=== PATIENT | male | born 1970 | race Caucasian/White ===

== ENCOUNTER → 2017-07-14 12:20 | Outpatient (CLI) | payer MEDICARE, MEDICAID, SELFPAY ==
[2017-07-14 14:24] LABS: Amphetamine Urine VISTA NEGATIVE (<1000 ng/mL); Barbiturate Urine VISTA NEGATIVE (< 200 ng/mL); Benzodiazepine Urine VISTA NEGATIVE (< 200 ng/mL); Cocaine Urine VISTA NEGATIVE (< 300 ng/mL); Ecstacy Urine VISTA NEGATIVE (< 500 ng/mL); Methadone Urine VISTA NEGATIVE (< 300 ng/mL); PCP Urine VISTA NEGATIVE (< 25 ng/mL); THC Urine VISTA NEGATIVE (< 50 ng/mL); Vista UDS pH Range 6
== END ==
PROVIDERS: Family Provider Internal Medicine; PCP Internal Medicine; Visit Provider Anesthesiology Pain Medicine
DX: F11.20 Opioid dependence, uncomplicated (principal)
CPT/HCPCS: 80307

== ENCOUNTER → 2017-12-01 15:05 | Outpatient (CLI) | payer MEDICARE, MEDICAID, SELFPAY ==
[2017-12-01 17:10] LABS: Amphetamine Urine VISTA NEGATIVE (<1000 ng/mL); Barbiturate Urine VISTA NEGATIVE (< 200 ng/mL); Benzodiazepine Urine VISTA NEGATIVE (< 200 ng/mL); Cocaine Urine VISTA NEGATIVE (< 300 ng/mL); Ecstacy Urine VISTA NEGATIVE (< 500 ng/mL); Methadone Urine VISTA NEGATIVE (< 300 ng/mL); PCP Urine VISTA NEGATIVE (< 25 ng/mL); THC Urine VISTA NEGATIVE (< 50 ng/mL); Vista UDS pH Range 5
== END ==
PROVIDERS: Family Provider Internal Medicine; PCP Internal Medicine; Visit Provider Anesthesiology Pain Medicine
DX: F11.20 Opioid dependence, uncomplicated (principal)
CPT/HCPCS: 80307

== ENCOUNTER 2018-02-22 22:07 | Emergency (ER) | payer MEDICARE, MEDICAID, SELFPAY ==
[2018-02-22 22:08] VITALS: BP 217/103; PULSE 74; RESP 17; TEMP 36.6; O2SAT 94; BMI 27.5
[2018-02-22] MEDS: morphine 10 MG/ML Syringe IM (22:39)
[2018-02-22] MEDS: cloNIDine HCl 0.1 MG Tablet PO (23:04)
[2018-02-22 23:05] VITALS: BP 184/110
--- NOTE | 2018-02-22 23:22 | ED.DCSUM_ITS ---
- ER Visit Summary Date of Service: 02/22/18 Chief Complaint: Back pain History of Present Illness: The patient is a 47 M with a history of prior back pain. 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 Patient was bending over picking up sticks in his yard today and started to feel his lower back tightening up. He has pain in the right lower back with some radiation to the mid thigh on the right. He denies paresthesias. No problems bowel bladder. No direct trauma to his back. Patient has taken Tylenol, ibuprofen, and Lyrica. Past history is significant for Marfan's syndrome with a prior aortic dissection. He also is a history of hypertension and high cholesterol. Physical Examination: Blood pressure on arrival is 217/103, temperature 97.8, heart rate 74, respiratory rate 17, pulse ox 94% on room air. Patient is lying in bed no acute distress. Heart is regular rate and rhythm. Lung sounds clear. Abdomen is soft and nontender. Back examination was reproducible tenderness in the right lumbar paraspinal muscles. Lower extreme examination was good strength and sensation with strong and equal distal pulses. Test Results: Emergency Department Course and Treatment: Patient was given IM morphine. On repeat evaluation blood pressure remains elevated at 212/117. He did take his evening blood pressure medications approximately an hour and a half prior to arrival. He has as needed clonidine that he did not take tonight. He is given a dose of that at this time. Blood pressure is currently 184/110. Patient will be observed for an additional short period of time, with plan for discharge to home. He will be given a short course of Percocet for home. Treatment Plan: Disposition: Discharge Impression: Right lumbar paraspinal strain Hypertension This note was generated with [employer] dictation software. It may contain incorrect words, spelling, and punctuation that were not noted in review of the chart prior to signing ED Disposition - Plan for ED Patient: Chief Complaint: Back Referrals: Raymond Turcios [Primary Care Provider] -
--- NOTE | 2018-02-22 23:24 | ED.DEP ---
ED Disposition - Plan for ED Patient: Disposition: Home or Assisted Living Chief Complaint: Back Instructions: ED Sprain Strain Lumbar Prescriptions: Oxycodone HCl/Acetaminophen [Percocet 5/325] 1 tablet PO Q6H PRN PRN 3 Days #12 tablet PRN Reason: Pain Referrals: Raymond Turcios [Primary Care Provider] - 1 Week
[2018-02-22] MEDS: oxyCODONE 5 MG Tablet PO (23:41)
[2018-02-22 23:43] VITALS: BP 198/86; RESP 18
[2018-02-22] MEDS: diazePAM 5 MG Tablet PO (23:51)
== END 2018-02-22 23:59 | disposition home or self-care (01) ==
PROVIDERS: Emergency Provider Emergency Medicine; Family Provider Internal Medicine; PCP Internal Medicine
DX: S39.012A Strain of muscle, fascia and tendon of lower back, initial encounter (principal); X50.1XXA Overexertion from prolonged static or awkward postures, initial encounter; Y93.H2 Activity, gardening and landscaping; Y92.007 Garden or yard of unspecified non-institutional (private) residence as the place of occurrence of the external cause; Y99.9 Unspecified external cause status; I10 Essential (primary) hypertension; E78.00 Pure hypercholesterolemia, unspecified; Q87.40 Marfan syndrome, unspecified; Z79.82 Long term (current) use of aspirin; Z79.899 Other long term (current) drug therapy
CPT/HCPCS: 96372; 99283

== ENCOUNTER 2018-04-08 00:45 | Emergency (ER) | payer MEDICARE, MEDICAID, SELFPAY ==
[2018-04-08 00:46] VITALS: BP 180/97; PULSE 80; RESP 24; TEMP 36.7; O2SAT 95; BMI 29.6
--- NOTE | 2018-04-08 01:11 | CT_ITS ---
STUDY: CT ABDOMEN AND PELVIS WITHOUT CONTRAST REASON FOR EXAM: Male, 47 years old. Flank pain RADIATION DOSAGE (If Supplied By Facility): CTDIvol = ( 15.62 ) mGy, DLP = ( 932.70 ) mGycm TECHNIQUE: Transaxial images were obtained from the dome of the diaphragm to the symphysis pubis without oral contrast, and without intravenous contrast. Sagittal and coronal images were reconstructed. Individualized dose optimization techniques were used for this CT. COMPARISON: 01/20/2017 FINDINGS: The visualized lung bases are unremarkable. The visualized portions of the heart are within normal limits. Normal liver. Normal gallbladder and extrahepatic biliary system. Normal spleen. Normal pancreas. Normal bilateral adrenal glands. There is a 1 cm cortical cyst of the upper pole the RIGHT kidney. There is a 3 cm parapelvic cyst in the lower pole of the LEFT kidney. There are NO kidney stones or ureteral stones. There is NO hydronephrosis. Normal visualized stomach. Normal small intestine. Normal colon. The appendix is visualized and appears normal. Normal abdominal aorta. Normal inferior vena cava. Normal retroperitoneum. Normal urinary bladder. There is NO ascites, free air, abscess or adenopathy. Normal abdominal wall. Normal osseous structures. CT/Abdomen/Pelvis without Cont IMPRESSION: There is a 1 cm cortical cyst of the upper pole the RIGHT kidney. There is a 3 cm parapelvic cyst in the lower pole of the LEFT kidney. There are NO kidney stones or ureteral stones. There is NO hydronephrosis. Normal visualized stomach. Normal small intestine. Normal colon. The appendix is visualized and appears normal. There is NO ascites, free air, abscess or adenopathy. Electronically Signed: Jean Alvarenga MD at 2:22 EST , Service support ,
[2018-04-08 01:18] LABS: Absolute Lymphocyte Count 1.33 X10^3/ul (0.83-4.51); Absolute Neutrophil Count 3.9 X10^3/uL (2.0-7.7); Basophil# 0.02 X10^3/uL; Basophil% 0.3 % (0-1); Eosinophil# 0.07 X10^3/uL; Eosinophils% 1.1 % (0-5); Hematocrit 41.3 % (40-54); Hemoglobin 14.4 g/dl (13.0-16.5); Lymphocyte # 1.33 X10^3/ul (4.0); Lymphocyte % 20.9 % (19-41); Mean Corp Hgb Conc 34.9 g/gl (32-36); Mean Corpuscular Hgb 29.8 pg (27.0-32.0); Mean Corpuscular Volume 85.5 fL (80-94); Mean Platelet Vol. 9.4 fl (6.2-12.0); Monocyte% 15.7 % (0-10); Neutrophil % 61.4 % (47-70); Platelet Count 260 K/mm3 (150-450); RBC Distribution Width CV 12.9 % (11.6-14.6); RBC Distribution Width SD 39.6 fl (35.1-43.9); Red Blood Count 4.83 M/mm3 (4.6-6.2); White Blood Count 6.4 K/mm3 (4.4-11.0)
[2018-04-08 01:19] LABS: POSITIVE COUNT NO; POSITIVE DIFFERENTIAL NO; POSITIVE MORPHOLOGY NO
[2018-04-08 01:26] LABS: Anion Gap 6 (5-15); BUN 18 mg/dL (7-18); Calcium,Total 8.5 mg/dL (8.5-10.1); Chloride 99 mmol/L (98-107); Creatinine, Serum 0.95 mg/dL (0.70-1.30); EST Glomerular Filtration Rate 90 mL/min (>60); Est Glom Filt Rate - Afr Amer 109 mL/min (>60); Estimated Creatinine Clearance 115.48 ml/min; Glucose 99 mg/dL (74-106); Potassium 3.6 mmol/L (3.5-5.1); Sodium Level 135 mmol/L (136-145)
[2018-04-08] MEDS: HYDROmorphone 1 MG/ML Syringe IV ×2 (01:40→02:55)
[2018-04-08] MEDS: Ondansetron 4 MG/2 ML Vial IV (01:40)
[2018-04-08] MEDS: 0.9% Normal Saline 1,000 ML 1000 ML IV (01:40)
[2018-04-08 02:03] LABS: Bacteria 0 SEEN /hpf (None Seen); Mucous, Urine 0 SEEN /hpf (<or=2+); Red Blood Cells-Urine 0 SEEN /hpf (0-5); Squamous Epithelial Cells - UA 0 SEEN /hpf (0-5); White Blood Cells 0 SEEN /hpf (0-5)
[2018-04-08 02:07] LABS: Color, Urine Yellow (Yellow); Glucose, Dipstick Normal (Normal); Ketone-Dipstick Negative (Negative); Leukocyte Esterase-Dipstick Negative /ul (Negative); Nitrite-Dipstick Negative (Negative); Occult Blood-Urine Negative /ul (Negative); Protein-Dipstick Negative (Negative); Specific Gravity, Urine 1.015 (1.002-1.030); Urine Bilirubin Dipstick Negative (Negative); Urine Clarity Clear (Clear); Urine Urobilinogen Normal (Normal); Urine pH 6.5 (5.0 - 8.0)
--- NOTE | 2018-04-08 02:33 | CT_ITS ---
STUDY: CTA OF THE ABDOMINAL AORTA AND BILATERAL LOWER EXTREMITIES REASON FOR EXAM: Male, 47 years old. Back pain RADIATION DOSAGE (If Supplied By Facility): CTDIvol = ( 18.26 ) mGy, DLP = ( 1115.64 ) mGycm TECHNIQUE: Axial CT angiography multi-detector data acquisition was obtained from the to the following intravenous administration of 100ML ml of Isovue 370 contrast. Axial images and MIP images were reconstructed from the axial data set. Post-processing of the angiographic images was performed, with multiplanar reformation and 3D reconstruction. Individualized dose optimization techniques were used for this CT. TECHNICAL QUALITY: Good COMPARISON: None. Descriptors of Narrowing: None (0%) Mild (< 50%) Moderate (50-70%) Severe (70-90%) Subtotal/Total Occlusion (90-100%) Non-Evaluable (technically non-diagnostic FINDINGS: The abdominal aorta is normal in caliber. There is NO significant plaque. There is NO aneurysm, dissection, stenosis or thrombosis. Mesenteric arterial branches are patent and normal in caliber. The iliac branches are patent and normal in caliber. There is fatty infiltration of the liver. The gallbladder, pancreas, spleen, adrenal glands and kidneys are unremarkable. There is NO acute bowel abnormality. There is NO ascites or free air. Visualized bony structures are within normal limits. CT/CTA Abdomen W/WO Contrast IMPRESSION: There is NO aortic aneurysm, dissection, stenosis or thrombosis. Electronically Signed: Jean Alvarenga MD at 4:05 EST , Service support ,
--- NOTE | 2018-04-08 02:33 | CT_ITS ---
STUDY: CTA CHEST REASON FOR EXAM: Male, 47 years old. Chest pain RADIATION DOSAGE (If Supplied By Facility): CTDIvol = ( 18.26 ) mGy, DLP = ( 1115.64 ) mGycm TECHNIQUE: The examination was performed with the intravenous administration of 100ML ml of Isovue 370 contrast material. Post-processing of the angiographic images was performed, with multiplanar reformation and 3D reconstruction. Individualized dose optimization techniques were used for this CT. COMPARISON: None. 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 There is a stent in the proximal descending thoracic aorta. There is NO aortic dissection or thrombosis. There is NO pulmonary embolism. Normal heart and pericardium. Normal mediastinum. Normal hilar regions. Normal visualized trachea and bronchi. The lungs are well expanded. Normal pulmonary parenchyma. Normal pleura. Normal chest wall structures. Normal osseous structures. Normal visualized upper abdomen. 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 There is a stent in the proximal descending thoracic aorta. There is NO aortic dissection or thrombosis. There is NO pulmonary embolism. The lungs are expanded and clear. Electronically Signed: Jean Alvarenga MD at 3:57 EST , Service support ,
[2018-04-08 03:00] VITALS: BP 170/81; PULSE 76; O2SAT 95
[2018-04-08 03:32] VITALS: BP 161/99; PULSE 74; RESP 13; O2SAT 95
--- NOTE | 2018-04-08 04:21 | ED.VISSUMM ---
- ER Visit Summary Date of Service: 04/08/18 Chief Complaint: Kidney stone History of Present Illness: The patient is a 47 M who presents with left flank pain. This has been getting worse of the past 3 days. The pain is severe at times. He has noted an increased blood pressure which is concerning for him. He has a history of Marfan syndrome and had a prior dissection repair. He is denying any chest pain or shortness of breath. He does report some urinary frequency and sweats. Physical Examination: Blood pressure 180/97. Otherwise vitals unremarkable. Afebrile. Skin normal in color without diaphoresis or pallor. He is sitting recumbent and appears comfortable. No acute distress. Alert and oriented. Heart regular. Lungs clear. Abdomen soft and nontender. Left CVA tender to palpation. Skin appears normal. Legs unremarkable. Test Results: CBC normal. BMP unremarkable. Urinalysis unremarkable. CT abdomen pelvis showed bilateral renal cysts but no stones or hydronephrosis. Emergency Department Course and Treatment: Patient was initially treated with fluids, Dilaudid, and Zofran. His blood pressure did improve slightly with pain control. I continue to observe while awaiting results. He did require additional Dilaudid. Workup showed renal cysts but nothing that showed an obstruction pattern. No stones. His urinalysis was unremarkable making a kidney infection or kidney stones unlikely. CBC and BMP were unremarkable. He had continued pain and hypertension. He received an additional dose of Dilaudid. I did order CT of his aorta. CT aorta was unremarkable. Patient's blood pressure did improve to the 160s. He said he normally runs in the 150s. Patient declined blood pressure medication. He would like to take his blood pressure medication at home and he will watch his pressure at home. Patient declined admission and would like to go home. I reviewed his labs, imaging. There is nothing to explain his left flank pain at this time. He will return for any new or worsening issues. Monitor blood pressure. Take medications as prescribed. He was given a short course of pain medicine. Return for any new or worsening issues. Treatment Plan: As above Disposition: Discharge Impression: 1. Left flank pain 2. Hypertension This note was generated with [employer] software. It may contain incorrect words, spelling, and punctuation that were not noted in review of the chart prior to signing ED Disposition - Plan for ED Patient: Chief Complaint: Flank Pain Referrals: Raymond Turcios [Primary Care Provider] -
[2018-04-08 04:24] VITALS: BP 176/99; PULSE 85; RESP 16; O2SAT 94
--- NOTE | 2018-04-08 04:24 | ED.DEP ---
ED Disposition - Plan for ED Patient: Chief Complaint: Flank Pain Instructions: ED Flank Pain Uncertain Cause Referrals: Raymond Turcios [Primary Care Provider] -
[2018-04-08] MEDS: HYDROcodone Bitartrate/Apap 5/325 Tablet PO (04:32)
== END 2018-04-08 04:38 | disposition home or self-care (01) ==
LOC: ED 01:22
PROVIDERS: Emergency Provider Emergency Medicine; Family Provider Internal Medicine; PCP Internal Medicine
DX: R10.9 Unspecified abdominal pain (principal); I10 Essential (primary) hypertension; R35.0 Frequency of micturition; N28.1 Cyst of kidney, acquired; Q87.40 Marfan syndrome, unspecified; R51 Headache; Z79.82 Long term (current) use of aspirin; Z79.899 Other long term (current) drug therapy
CPT/HCPCS: 71275; 74175; 74176; 80048; 81001; 85025; 96361; 96374; 96375; 96376; 99283; J7030; Q9967; A4216; J2405

== ENCOUNTER 2018-05-19 16:57 | Emergency (ER) | payer MEDICARE, MEDICAID, SELFPAY ==
[2018-05-19] VITALS (15 sets, daily range): BP systolic 156–207; BP diastolic 97–121; PULSE 14–89; RESP 14–71; TEMP 36.4; O2SAT 94–97; BMI 28.0
--- NOTE | 2018-05-19 17:29 | CT_ITS ---
STUDY: CT BRAIN WITHOUT CONTRAST REASON FOR EXAM: Male, 47 years old. Weakness, hypertension, left hemiparesis RADIATION DOSAGE (If Supplied By Facility): CTDIvol = ( 44.99 ) mGy, DLP = ( 863.60 ) mGycm TECHNIQUE: Transaxial CT imaging of the brain was performed without administration of intravenous contrast material. Individualized dose optimization techniques were used for this CT. COMPARISON: None. FINDINGS: Normal soft tissue structures. Normal calvarium. Normal size ventricles and extra-axial spaces for the patient's age. Normal white matter tracts of the cerebral hemispheres. Normal basal ganglia and thalami. Normal brainstem. Normal cerebellum. There is no intracranial hemorrhage. There are no findings of an acute ischemic infarction. Normal visualized paranasal sinuses. CT/Brain/Head without Contrast IMPRESSION: Normal unenhanced CT scan of the brain. Electronically Signed: Uche Morales DO at 18:25 EST Tel [phone], Service support ,
--- NOTE | 2018-05-19 17:29 | EKG12_ITS ---
Test Reason : HYPERTENSION Blood Pressure : / mmHG Vent. Rate : 078 BPM Atrial Rate : 078 BPM P-R Int : 202 ms QRS Dur : 126 ms QT Int : 430 ms P-R-T Axes : 020 -01 092 degrees QTc Int : 490 ms Normal sinus rhythm Possible Left atrial enlargement Left ventricular hypertrophy with QRS widening and repolarization abnormality Cannot rule out Inferior infarct , age undetermined Abnormal ECG Confirmed by MIRANDA HARRIS, MARIUSZ ([id number]), society editor SAMUEL SCHNEIDER ([id number]) on 05/24/2018 9:13:11 AM Referred By: PRUDENCE Confirmed By:MARIUSZ JEAN MD
--- NOTE | 2018-05-19 17:41 | RAD_ITS ---
STUDY: X-RAY CHEST REASON FOR EXAM: Male, 47 years old. Chest pain, hypertension TECHNIQUE: Single frontal view COMPARISON: April 16, 2017 FINDINGS: Stable sternotomy wires. The lungs are clear and expanded. There is no demonstrated pleural abnormality. Cardiomegaly Normal mediastinum and patrick. Normal visualized pulmonary arteries. There is a stent noted at the proximal thoracic aorta. Normal visualized thoracic spine. Normal visualized ribs, clavicles, and shoulders. There is no demonstrated abnormality of the visualized soft tissue structures of the upper abdomen. RAD/Chest 1 View IMPRESSION: Cardiomegaly. Electronically Signed: Uche Morales DO at 18:02 EST Tel [phone], Service support ,
[2018-05-19 17:53] LABS: Absolute Lymphocyte Count 1.49 X10^3/ul (0.83-4.51); Absolute Neutrophil Count 2.6 X10^3/uL (2.0-7.7); Basophil# 0.02 X10^3/uL; Basophil% 0.4 % (0-1); Eosinophil# 0.08 X10^3/uL; Eosinophils% 1.6 % (0-5); Hematocrit 41.7 % (40-54); Hemoglobin 14.5 g/dl (13.0-16.5); Lymphocyte # 1.49 X10^3/ul (4.0); Lymphocyte % 30.2 % (19-41); Mean Corp Hgb Conc 34.8 g/gl (32-36); Mean Corpuscular Hgb 29.5 pg (27.0-32.0); Mean Corpuscular Volume 84.8 fL (80-94); Mean Platelet Vol. 9.7 fl (6.2-12.0); Monocyte% 14.2 % (0-10); Neutrophil # 2.63 X10^3/uL (2.7-7.7); Neutrophil % 53.2 % (47-70); POSITIVE COUNT NO; POSITIVE DIFFERENTIAL NO; POSITIVE MORPHOLOGY NO; Platelet Count 287 K/mm3 (150-450); RBC Distribution Width CV 13.1 % (11.6-14.6); RBC Distribution Width SD 40.1 fl (35.1-43.9); Red Blood Count 4.92 M/mm3 (4.6-6.2); White Blood Count 4.9 K/mm3 (4.4-11.0)
[2018-05-19 18:00] LABS: Prothrombin Time (Protime)PT. 13.4 SECONDS (11.7-14.9)
[2018-05-19 18:01] LABS: Partial Thromboplast Time 28.6 Seconds (24.1-36.2)
[2018-05-19 18:05] LABS: Anion Gap 8 (5-15); BUN 12 mg/dL (7-18); Calcium,Total 8.9 mg/dL (8.5-10.1); Chloride 100 mmol/L (98-107); Creatinine, Serum 1.09 mg/dL (0.70-1.30); EST Glomerular Filtration Rate 76 mL/min (>60); Est Glom Filt Rate - Afr Amer 92 mL/min (>60); Estimated Creatinine Clearance 100.65 ml/min; Glucose 103 mg/dL (74-106); Potassium 2.8 mmol/L (3.5-5.1); Sodium Level 137 mmol/L (136-145)
[2018-05-19] MEDS: Aspirin 81 MG TAB.CHEW 162 MG PO (18:32)
--- NOTE | 2018-05-19 18:35 | ED.VIS.GEN ---
History of Present Illness Chief Complaint: Hypertension Informant: Patient, Family Onset: Today Context: Gradual Onset Quality: malaise Location: all over Current Severity: Severe Maximum Severity: Severe Worsened by: nothing Relieved by: nothing Associated Symptoms: mildly pleuritic left chest pain, headache all over, fatigue Narrative: States he has been feeling like this all day over 8-10 hours, states his blood pressure has been over 200 every time he has checked it. States that he felt a headache this morning so he took Sudafed because he has a history of sinus headaches, as he took a dose last night as well. Has a history of an aortic dissection and elephant trunk-repair, states that he was told on occasion if his blood pressure goes very high he may feel the stent in his chest, and he is wondering if that is the left-sided chest discomfort he is having. He states this feels nothing like the dissection that he had. He has never had a coronary stent, but he had a prophylactic bypass given the ascending aortic component of the dissection. Also states that for the last several hours, he does not recall exactly when, he has noticed weakness on his left lower extremity and left upper extremity. That is a new symptom as well. - Past Medical History (1) History of aortic dissection Status: Chronic Comment: Status post repair (2) Hypertension Status: Chronic (3) Marfans syndrome Status: Chronic Past Medical History - Allergies and Home Meds Allergies/Adverse Reactions: Allergies ciprofloxacin [From Cipro] Allergy (Verified 04/08/18 00:48) Rash ciprofloxacin HCl [From Cipro] Allergy (Verified 04/08/18 00:48) Rash sulfamethoxazole [From Bactrim] Allergy (Verified 04/08/18 00:48) Rash tramadol Allergy (Verified 04/08/18 00:48) Itching trimethoprim [From Bactrim] Allergy (Verified 04/08/18 00:48) Rash Primary Care Physician: Raymond Turcios [Primary Care Provider] - Surgical History: - - Aortic dissection repair, index finger amputation right hand, lacerated tendon repair right foot Lives: Spouse/ Significant Other Smoking Status: Current every day smoker - Family History Maternal Family History: Reports: Cancer Paternal Family History: Reports: Hypertension Review of Systems General: Reports: Malaise. Denies: Chills, Fever, Sweats Eyes: Reports: Blurred Vision - bilaterally. Denies: Diplopia ENT: Denies: Bilateral ear pain, Rhinorrhea, Sore throat Cardiovascular: Reports: Chest pain. Denies: Palpitations, Heart racing Respiratory: Denies: Dyspnea, Cough, Dyspnea on exertion Gastrointestinal: Denies: Abdominal pain, Nausea, Vomiting, Diarrhea, Melena, Hematochezia Genitourinary: Denies: Dysuria, Hematuria, Frequency Musculoskeletal: Denies: Neck pain, Back pain, Swelling, Extremity Pain Skin: Denies: Rash, Abscess, Wounds Neurological: Reports: Headache, Weakness - left arm and leg. Denies: Parasthesia, Numbness Allergy: Denies: Swelling of the mouth, Swelling of the tongue Physical Exam Vital Signs/Narrative: Vital Signs Temp Pulse Resp BP Pulse Ox 05/19/18 18:32 68 180/121 H 05/19/18 18:25 66 16 181/105 H 95 05/19/18 17:56 79 18 207/120 H 95 05/19/18 16:58 97.6 F L 89 16 162/104 H 97 Inital Vital Signs reviewed: Yes General: Well nourished, Well developed Head: Normocephalic, Atraumatic Eyes: Perrl, EOMI ENT: Moist mucous membranes, No rhinorrhea. Negative for: Sinus tenderness Neck: Supple, Nontender, No lymphadenopathy, No JVD Cardiovascular: Regular rate, Regular rhythm, No murmurs, Normal S1, Normal S2 Respiratory: No distress, CTA bilaterally, Chest nontender Abdomen: Soft, Nontender, Nondistended, Normal bowel sounds Back: Nontender, Normal Inspection Extremities: Nontender, No edema Skin: Normal color, No rash Neurological: Alert, Oriented x3, Cranial nerves II-XII grossly intact, Normal Sensation, Weakness - LLE drift. 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 no hemiinattention or hemineglect., - - nml cerebellar and vis casanova. No aphasia or dysarthria. Total NIHSS 1, for LLE. Psychological: Normal affect Diagnostic/Tx/Re-eval Impressions Clinical Impression(s) from Imaging Studies Brain CT 05/19/18 17:29 IMPRESSION: Normal unenhanced CT scan of the brain. Electronically Signed: Uche Morales DO at 18:25 EST Tel [phone], Service support , Chest X-Ray 05/19/18 17:41 IMPRESSION: Cardiomegaly. Electronically Signed: Uche Morales DO at 18:02 EST Tel [phone], Service support , Head CTA 05/19/18 19:59 IMPRESSION: Occluded right vertebral artery. Nonvisualization of posterior communicating arteries. Electronically Signed: Uche Morales DO at 21:22 EST Tel [phone], Service support , Neck CTA 05/19/18 19:59 IMPRESSION: Possible dissection of the right vertebral artery. N.B. : The above information has been verbally conveyed by Uche Morales DO to Geovani Fernandez MD, on 05/19/2018 21:34:44 (ET). Electronically Signed: Uche Morales DO at 21:28 EST Tel [phone], Service support , Laboratory Results 05/19/18 05/19/18 05/19/18 17:15 17:15 17:15 WBC 4.9 RBC 4.92 Hgb 14.5 Hct 41.7 MCV 84.8 MCH 29.5 MCHC 34.8 RDW 13.1 RDW Differential 40.1 Plt Count 287 MPV 9.7 Immature Gran % (Auto) 0.400 Neut % (Auto) 53.2 Lymph % (Auto) 30.2 Emmet % (Auto) 14.2 H Eos % (Auto) 1.6 Baso % (Auto) 0.4 Absolute Neuts (auto) 2.6 Absolute Lymphs (auto) 1.49 Total Counted Not Reportable PT 13.4 INR 1.0 APTT 28.6 Sodium 137 Potassium 2.8 L Chloride 100 Carbon Dioxide 29.0 Anion Gap 8 BUN 12 Creatinine 1.09 Estim Creat Clear Calc 100.65 Est GFR (MDRD) Af Amer 92 Est GFR (MDRD) Non-Af 76 BUN/Creatinine Ratio 11.0 Glucose 103 Calcium 8.9 Troponin I 0.019 POC Glucose 05/19/18 18:39 WBC RBC Hgb Hct MCV MCH MCHC RDW RDW Differential Plt Count MPV Immature Gran % (Auto) Neut % (Auto) Lymph % (Auto) Emmet % (Auto) Eos % (Auto) Baso % (Auto) Absolute Neuts (auto) Absolute Lymphs (auto) Total Counted PT INR APTT Sodium Potassium Chloride Carbon Dioxide Anion Gap BUN Creatinine Estim Creat Clear Calc Est GFR (MDRD) Af Amer Est GFR (MDRD) Non-Af BUN/Creatinine Ratio Glucose Calcium Troponin I POC Glucose 106 - Rhythm Strip Rhythm Strip: Sinus Rhythm Rate: 85 Ectopy: None - EKG Initial EKG Interpretation: Sinus Rhythm, No Acute Injury Pattern, S-T Depression - laterally Follow-up EKG Interpretation: Sinus Rhythm, No Acute Injury Pattern, Inverted T-Waves - laterally, - - complete resolution of previously seen ST depressions laterally. no strain pattern now. - Medical Decision Making Head CT negative and labs unremarkable except for hypokalemia, EKG shows concern for either left ventricular strain due to hypertension or active ischemia, troponin negative. He was given aspirin 162 mg orally. I discussed with neurology Dr. Devine, he advised getting CT angiography given that his renal function is within normal limits. He advised keeping his blood pressure under 200 systolic in case he is having acute stroke since we cannot get an emergent MRI. This was done using labetalol. He still was in pain all over although his headache and chest discomfort lessened with this and nitroglycerin, so he was given a dose of fentanyl which helped temporarily. CT angiography shows suspicion for a dissecting right vertebral artery with the origin intact and perfusion of the posterior fossa of the brain intact. Posterior communicating artery was not able to be visualized with the contralateral vertebral and basilar are patent and there are no other acute abnormalities. There is no sign of hemorrhage. Discussed again with neurology who advises transfer to a tertiary care center in keeping the blood pressure in the 160-170 range, systolic given that we do not know if he is having a stroke or not. On reevaluation and discussion with the patient, he states that this process he suspects has been going on for 2-3 days, but the weakness is new today compared to the last 3. He states that since his aortic stent was placed, he has had intermittent problems on his left side including a foot drop and wonders if this could be related to that as opposed to stroke, which certainly is possible. However for now, we will try to keep his pressure down but not below 160 if possible. He states he bought a new pillow yesterday because his neck has been sore, but he did not think it was necessarily anything major. Patient had his aorta managed at [facility], that is where he wishes to be transferred now. Accepted there by Dr. Flores. Repeat EKG shows resolution of the ST depressions and LV strain pattern. Procedures Critical care time (excluding procedures): 30-74 minutes - 40 min, including VS management, multiple pt clinical reevaluations, discussion w/ pt and , discussion w/ consultants, arranging transfer ED Disposition - Plan for ED Patient: Disposition: [facility] - Main Chief Complaint: Hypertension Diagnosis: Vertebral artery dissection, Left hemiparesis, Chest pain, unspecified, Marfans syndrome, Hypertensive urgency, Hypokalemia Referrals: Raymond Turcios [Primary Care Provider] -
--- NOTE | 2018-05-19 18:39 | ED.DCSUM_ITS ---
History of Present Illness Chief Complaint: Hypertension Informant: Patient, Family Onset: Today Context: Gradual Onset Quality: malaise Location: all over Current Severity: Severe Maximum Severity: Severe Worsened by: nothing Relieved by: nothing Associated Symptoms: mildly pleuritic left chest pain, headache all over, fatigue Narrative: States he has been feeling like this all day over 8-10 hours, states his blood pressure has been over 200 every time he has checked it. States that he felt a headache this morning so he took Sudafed because he has a history of sinus headaches, as he took a dose last night as well. Has a history of an aortic dissection and elephant trunk-repair, states that he was told on occasion if his blood pressure goes very high he may feel the stent in his chest, and he is wondering if that is the left-sided chest discomfort he is having. He states this feels nothing like the dissection that he had. He has never had a coronary stent, but he had a prophylactic bypass given the ascending aortic component of the dissection. Also states that for the last several hours, he does not recall exactly when, he has noticed weakness on his left lower extremity and left upper extremity. That is a new symptom as well. - Past Medical History (1) History of aortic dissection Status: Chronic Comment: Status post repair (2) Hypertension Status: Chronic (3) Marfans syndrome Status: Chronic Past Medical History - Allergies and Home Meds Allergies/Adverse Reactions: Allergies ciprofloxacin [From Cipro] Allergy (Verified 04/08/18 00:48) Rash ciprofloxacin HCl [From Cipro] Allergy (Verified 04/08/18 00:48) Rash sulfamethoxazole [From Bactrim] Allergy (Verified 04/08/18 00:48) Rash tramadol Allergy (Verified 04/08/18 00:48) Itching trimethoprim [From Bactrim] Allergy (Verified 04/08/18 00:48) Rash Primary Care Physician: Raymond Turcios [Primary Care Provider] - Surgical History: - - Aortic dissection repair, index finger amputation right hand, lacerated tendon repair right foot Lives: Spouse/ Significant Other Smoking Status: Current every day smoker - Family History Maternal Family History: Reports: Cancer Paternal Family History: Reports: Hypertension Review of Systems General: Reports: Malaise. Denies: Chills, Fever, Sweats Eyes: Reports: Blurred Vision - bilaterally. Denies: Diplopia ENT: Denies: Bilateral ear pain, Rhinorrhea, Sore throat Cardiovascular: Reports: Chest pain. Denies: Palpitations, Heart racing Respiratory: Denies: Dyspnea, Cough, Dyspnea on exertion Gastrointestinal: Denies: Abdominal pain, Nausea, Vomiting, Diarrhea, Melena, Hematochezia Genitourinary: Denies: Dysuria, Hematuria, Frequency Musculoskeletal: Denies: Neck pain, Back pain, Swelling, Extremity Pain Skin: Denies: Rash, Abscess, Wounds Neurological: Reports: Headache, Weakness - left arm and leg. Denies: Parasthesia, Numbness Allergy: Denies: Swelling of the mouth, Swelling of the tongue Physical Exam Vital Signs/Narrative: Vital Signs Temp Pulse Resp BP Pulse Ox 05/19/18 18:32 68 180/121 H 05/19/18 18:25 66 16 181/105 H 95 05/19/18 17:56 79 18 207/120 H 95 05/19/18 16:58 97.6 F L 89 16 162/104 H 97 Inital Vital Signs reviewed: Yes General: Well nourished, Well developed Head: Normocephalic, Atraumatic Eyes: Perrl, EOMI ENT: Moist mucous membranes, No rhinorrhea. Negative for: Sinus tenderness Neck: Supple, Nontender, No lymphadenopathy, No JVD Cardiovascular: Regular rate, Regular rhythm, No murmurs, Normal S1, Normal S2 Respiratory: No distress, CTA bilaterally, Chest nontender Abdomen: Soft, Nontender, Nondistended, Normal bowel sounds Back: Nontender, Normal Inspection Extremities: Nontender, No edema Skin: Normal color, No rash Neurological: Alert, Oriented x3, Cranial nerves II-XII grossly intact, Normal Sensation, Weakness - LLE drift. 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 no hemiinattention or hemineglect., - - nml cerebellar and vis casanova. No aphasia or dysarthria. Total NIHSS 1, for LLE. Psychological: Normal affect Diagnostic/Tx/Re-eval Impressions Clinical Impression(s) from Imaging Studies Brain CT 05/19/18 17:29 IMPRESSION: Normal unenhanced CT scan of the brain. Electronically Signed: Uche Morales DO at 18:25 EST Tel [phone], Service support , Chest X-Ray 05/19/18 17:41 IMPRESSION: Cardiomegaly. Electronically Signed: Uche Morales DO at 18:02 EST Tel [phone], Service support , Head CTA 05/19/18 19:59 IMPRESSION: Occluded right vertebral artery. Nonvisualization of posterior communicating arteries. Electronically Signed: Uche Morales DO at 21:22 EST Tel [phone], Service support , Neck CTA 05/19/18 19:59 IMPRESSION: Possible dissection of the right vertebral artery. N.B. : The above information has been verbally conveyed by Uche Morales DO to Geovani Fernandez MD, on 05/19/2018 21:34:44 (ET). Electronically Signed: Uche Morales DO at 21:28 EST Tel [phone], Service support , Laboratory Results 05/19/18 05/19/18 05/19/18 17:15 17:15 17:15 WBC 4.9 RBC 4.92 Hgb 14.5 Hct 41.7 MCV 84.8 MCH 29.5 MCHC 34.8 RDW 13.1 RDW Differential 40.1 Plt Count 287 MPV 9.7 Immature Gran % (Auto) 0.400 Neut % (Auto) 53.2 Lymph % (Auto) 30.2 Hood % (Auto) 14.2 H Eos % (Auto) 1.6 Baso % (Auto) 0.4 Absolute Neuts (auto) 2.6 Absolute Lymphs (auto) 1.49 Total Counted Not Reportable PT 13.4 INR 1.0 APTT 28.6 Sodium 137 Potassium 2.8 L Chloride 100 Carbon Dioxide 29.0 Anion Gap 8 BUN 12 Creatinine 1.09 Estim Creat Clear Calc 100.65 Est GFR (MDRD) Af Amer 92 Est GFR (MDRD) Non-Af 76 BUN/Creatinine Ratio 11.0 Glucose 103 Calcium 8.9 Troponin I 0.019 POC Glucose 05/19/18 18:39 WBC RBC Hgb Hct MCV MCH MCHC RDW RDW Differential Plt Count MPV Immature Gran % (Auto) Neut % (Auto) Lymph % (Auto) Hood % (Auto) Eos % (Auto) Baso % (Auto) Absolute Neuts (auto) Absolute Lymphs (auto) Total Counted PT INR APTT Sodium Potassium Chloride Carbon Dioxide Anion Gap BUN Creatinine Estim Creat Clear Calc Est GFR (MDRD) Af Amer Est GFR (MDRD) Non-Af BUN/Creatinine Ratio Glucose Calcium Troponin I POC Glucose 106 - Rhythm Strip Rhythm Strip: Sinus Rhythm Rate: 85 Ectopy: None - EKG Initial EKG Interpretation: Sinus Rhythm, No Acute Injury Pattern, S-T Depression - laterally Follow-up EKG Interpretation: Sinus Rhythm, No Acute Injury Pattern, Inverted T-Waves - laterally, - - complete resolution of previously seen ST depressions laterally. no strain pattern now. - Medical Decision Making Head CT negative and labs unremarkable except for hypokalemia, EKG shows concern for either left ventricular strain due to hypertension or active ischemia, troponin negative. He was given aspirin 162 mg orally. I discussed with neurology Dr. Devine, he advised getting CT angiography given that his renal function is within normal limits. He advised keeping his blood pressure under 200 systolic in case he is having acute stroke since we cannot get an emergent M RI. This was done using labetalol. He still was in pain all over although his headache and chest discomfort lessened with this and nitroglycerin, so he was given a dose of fentanyl which helped temporarily. CT angiography shows suspicion for a dissecting right vertebral artery with the origin intact and perfusion of the posterior fossa of the brain intact. Posterior communicating artery was not able to be visualized with the contralateral vertebral and basilar are patent and there are no other acute abnormalities. There is no sign of hemorrhage. Discussed again with neurology who advises transfer to a tertiary care center in keeping the blood pressure in the 160-170 range, systolic given that we do not know if he is having a stroke or not. On reevaluation and discussion with the patient, he states that this process he suspects has been going on for 2-3 days, but the weakness is new today compared to the last 3. He states that since his aortic stent was placed, he has had intermittent problems on his left side including a foot drop and wonders if this could be related to that as opposed to stroke, which certainly is possible. However for now, we will try to keep his pressure down but not below 160 if possible. He states he bought a new pillow yesterday because his neck has been sore, but he did not think it was necessarily anything major. Patient had his aorta managed at [facility], that is where he wishes to be transferred now. Accepted there by Dr. Flores. Repeat EKG shows resolution of the ST depressions and LV strain pattern. Procedures Critical care time (excluding procedures): 30-74 minutes - 40 min, including VS management, multiple pt clinical reevaluations, discussion w/ pt and , discussion w/ consultants, arranging transfer ED Disposition - Plan for ED Patient: Disposition: [facility] - Main Chief Complaint: Hypertension Diagnosis: Vertebral artery dissection, Left hemiparesis, Chest pain, unspecified, Marfans syndrome, Hypertensive urgency, Hypokalemia Referrals: Raymond Turcios [Primary Care Provider] -
[2018-05-19 18:45] LABS: Bedside Glucose 106 mg/dL (70-110)
--- NOTE | 2018-05-19 19:59 | CT_ITS ---
STUDY: CTA OF THE BRAIN REASON FOR EXAM: Male, 47 years old. Left hemiparesis RADIATION DOSAGE (If Supplied By Facility): CTDIvol = ( 20.84 ) mGy, DLP = ( 821.53 ) mGycm TECHNIQUE: CT angiography was performed with a multi-detector CT scanner. Data acquisition was obtained from the skull base through the vertex following intravenous administration of 100 ml of Isovue-370. MIP images were reconstructed from the axial data set. Post-processing of the angiographic images was performed, with multiplanar reformation and 3D reconstruction. Individualized dose optimization techniques were used for this CT. COMPARISON: None. FINDINGS: Normal bilateral petrous carotid arteries. Normal right cavernous carotid artery with a normal supraclinoid bifurcation. Normal left cavernous carotid artery with a normal supraclinoid bifurcation. Normal right A1 segments of the anterior cerebral artery. Normal left A1 segments of the anterior cerebral artery. Normal intact anterior communicating artery (ACOM). Normal bilateral A2 segments of the anterior cerebral arteries. Normal right M1 and M2 segments of the middle cerebral arteries, with a normal M1 bifurcation. Normal left M1 and M2 segments of the middle cerebral arteries, with a normal M1 bifurcation. Nonvisualization of the bilateral posterior communicating arteries (PCOM). Normal left vertebral artery. Occluded right vertebral artery. Normal basilar artery with a normal basilar bifurcation. The visualized bilateral superior cerebellar (SCA) arteries are normal. Normal bilateral P1, P2 and visualized P3 segments of the posterior cerebral arteries. There is no demonstrated aneurysm of the [place]. There is no demonstrated abnormality of the visualized brain. CT/CTA Head W/WO Contrast IMPRESSION: Occluded right vertebral artery. Nonvisualization of posterior communicating arteries. Electronically Signed: Uche Morales DO at 21:22 EST Tel [phone], Service support ,
--- NOTE | 2018-05-19 19:59 | CT_ITS ---
STUDY: CTA NECK WITH AND WITHOUT CONTRAST REASON FOR EXAM: Male, 47 years old. Left hemiparesis RADIATION DOSAGE (If Supplied By Facility): CTDIvol = ( 20.84 ) mGy, DLP = ( 821.53 ) mGycm TECHNIQUE: CT angiography with multi-detector data acquisition was performed from the aortic arch to the skull base prior to and after intravenous administration of 100ML ml of Isovue 370 contrast. MIP images were reconstructed from the axial data set. Post-processing of the angiographic images was performed, with multiplanar reformation and 3D reconstruction. Individualized dose optimization techniques were used for this CT. COMPARISON: None. FINDINGS: AORTIC ARCH: Stable aneurysm at the distal aortic arch with a stable stent at the distal aortic arch. Normal origins of the brachiocephalic, left common carotid, and left subclavian arteries. RIGHT CAROTID ARTERIES: Normal right common carotid artery (CCA). Mild atherosclerotic calcifications at the right common carotid bulb. Normal origin of the right internal carotid (ICA) artery without a hemodynamically significant stenosis. Moderate tortuosity and mild ectasia. Normal visualized cervical portion of the right internal carotid artery. Normal origin of the right external carotid artery (ECA). LEFT CAROTID ARTERIES: Normal left common carotid artery (CCA). Normal left common carotid bulb. Normal origin of the left internal carotid (ICA) artery without a hemodynamically significant stenosis. Moderate tortuosity and mild ectasia. Normal visualized cervical portion of the left internal carotid artery. Normal origin of the left external carotid artery (ECA). VERTEBRAL ARTERIES: Normal left vertebral artery. Decreasing opacification of the right vertebral artery with little to no flow distally. A dissection cannot be excluded. CT/CTA Neck W/WO Contrast IMPRESSION: Possible dissection of the right vertebral artery. N.B. : The above information has been verbally conveyed by Uche Morales DO to Geovani Fernandez MD, on 05/19/2018 21:34:44 (ET). Electronically Signed: Uche Morales DO at 21:28 EST Tel [phone], Service support ,
[2018-05-19] MEDS: 0.9% Normal Saline 1,000 ML 999 ML IV (20:33)
[2018-05-19] MEDS: fentaNYL 100 MCG/2 ML Ampul 50 MCG IV (20:33)
--- NOTE | 2018-05-19 21:45 | ED.RN ---
Goal systolic BP 160-180.
[2018-05-19] MEDS: Morphine 4 MG/ML Syringe IV (23:18)
[2018-05-20 00:04] VITALS: BP 170/111; PULSE 88; PULSE 90; RESP 20; RESP 21; O2SAT 96
--- NOTE | 2018-05-20 00:14 | EKG12_ITS ---
Test Reason : CP Blood Pressure : / mmHG Vent. Rate : 088 BPM Atrial Rate : 088 BPM P-R Int : 206 ms QRS Dur : 126 ms QT Int : 408 ms P-R-T Axes : 003 -08 102 degrees QTc Int : 493 ms Normal sinus rhythm Possible Left atrial enlargement Left ventricular hypertrophy with QRS widening and repolarization abnormality Inferior infarct , age undetermined Abnormal ECG Confirmed by MIRANDA HARRIS, MARIUSZ ([id number]), graphics editor SAMUEL SCHNEIDER ([id number]) on 05/24/2018 9:13:40 AM Referred By: PRUDENCE Confirmed By:MARIUSZ JEAN MD
[2018-05-20 00:55] VITALS: BP 197/109; PULSE 77; RESP 12; O2SAT 95
[2018-05-20 01:47] VITALS: BP 185/106; PULSE 68; RESP 16; O2SAT 94
[2018-05-20] MEDS: Morphine 4 MG/ML Syringe IV (01:47)
[2018-05-20 02:06] VITALS: BP 172/100; PULSE 69; RESP 16; RESP 18; TEMP 36.6; O2SAT 93; O2SAT 94
--- OUTSIDE RECORDS SUMMARY | 2018-07-24 16:45 | XMS RPT_ITS ---
:1970 Author Organization OHIP Care Team Providers Name Role Phone WISCO, DOLORA R Admitting Unavailable WISCO, DOLORA R [facility]ending Un[facility] Unavailable GEOVANI FOSS Attending Unavailable [facility], [facility] Unavailable Elijah Campbell Attending Unavailable [facility], [facility] Unavailable Felisa Samaniego Attending Unavailable Melquiades Alegre Attending Unavailable BasaliMelquiades Referring Unavailable [facility], [facility] Unavailable Melquiades Alegre Attending Unavailable BasaliMelquiades Referring Unavailable [facility], [facility] Unavailable PROBLEMS PROBLEMS DATE TYPE CONDITION / CODE ATTENDING STATUS SOURCE 05/22/2018 Active Low back pain / WISCO, DOLORA R Active [facility] M54.5(ICD-10) Main [place] Repository 05/22/2018 Active Other chronic pain WISCO, DOLORA R Active [facility] / G89.29(ICD-10) Main [place] Repository 02/13/2016 Active Marfan's syndrome, WISCO, DOLORA R Active [facility] unspecified / Main [place] Q87.40(ICD-10) Repository 05/20/2018 Active Headache / WISCO, DOLORA R Active [facility] R51(ICD-10) Main [place] Repository 05/20/2018 Active Dissection of WISCO, CHRIS R Active [facility] vertebral artery / [facility] [place] I77.74(ICD-10) Repository 04/13/2018 Unknown N20.0 - Calculus of Elijah Campbell Active [facility] N20.0(ICD-10) Hospital Repository 02/22/2018 Unknown S39.012A - Strain SamaniegoFelisa calle Active [place] of muscle, fascia Community and tendon of lower Hospital back, initial Repository encounter / S39.012A(ICD-10) 01/26/2018 Unknown F11.20 - Opioid Basali, Melquiades Active [place] dependence, Community uncomplicated / Hospital F11.20(ICD-10) Repository PROCEDURES PROCEDURES No Procedure Records FoundRESULTS RESULTS 12 LEAD ELECTROCARDIOGRAM Observed: 05/24/2018 Status: F Source: MICHELLE 9:14 AM [facility] REPOSITORY [facility] Cardiovascular Services [address] [place] [address] 12 Lead EKG 05/19/18 1706 MR#: [id number] Acct: [id number] Name: LEIDY DC Rep #: [id number] : 1970 47 From: Eduard Rea MD Attending Dr: Status: DEP ER Ordering Dr: Geovani Foss MD Date: 05/20/18 Location: ED Sex: M C Admitted: Test Reason : CP Blood Pressure : / mmHG Vent. Rate : 088 BPM Atrial Rate : 088 BPM P-R Int : 206 ms QRS Dur : 126 ms QT Int : 408 ms P-R-T Axes : 003 -08 102 degrees QTc Int : 493 ms Normal sinus rhythm Possible Left atrial enlargement Left ventricular hypertrophy with QRS widening and repolarization abnormality Inferior infarct , age undetermined Abnormal ECG Confirmed by EDUARD REA MD ([id number]), film editor supervisor SAMUEL SCHNEIDER ([id number]) on 05/24/2018 9:13:40 AM Referred By: PRUDENCE Confirmed By:EDUARD REA MD 05/24/18 0913 Date Eduard Rea MD CC: Raymond FOSS MD Signed 12 LEAD ELECTROCARDIOGRAM Observed: 05/24/2018 Status: F Source: DEVOL 9:13 AM [facility] REPOSITORY [facility] Cardiovascular Services [address] [place] [address] 12 Lead EKG 05/20/18 0025 MR#: [id number] Acct: [id number] Name: LEIDY DC Rep #: [id number] : 1970 47 From: Eduard Rea MD Attending Dr: Status: DEP ER Ordering Dr: Geovani Foss MD Date: 05/19/18 Location: ED Sex: M C Admitted: Test Reason : HYPERTENSION Blood Pressure : / mmHG Vent. Rate : 078 BPM Atrial Rate : 078 BPM P-R Int : 202 ms QRS Dur : 126 ms QT Int : 430 ms P-R-T Axes : 020 -01 092 degrees QTc Int : 490 ms Normal sinus rhythm Possible Left atrial enlargement Left ventricular hypertrophy with QRS widening and repolarization abnormality Cannot rule out Inferior infarct , age undetermined Abnormal ECG Confirmed by EDUARD REA MD ([id number]), film editor supervisor SAMUEL SCHNEIDER ([id number]) on 05/24/2018 9:13:11 AM Referred By: PRUDENCE Confirmed By:EDUARD REA MD 05/24/18 0913 Date Eduard Rea MD CC: Raymond FOSS MD Signed CNDS Observed: 05/22/2018 Status: COMPLETED Source: [place] 11:59 AM [facility] REPOSITORY HNO ID: [id number] Author: Chris Alexander Service: Neurology Stroke Author Type: Physician Type: Discharge Summaries Filed: 05/22/2018 3:28 PM Note Text: DISCHARGE SUMMARY NEURO STROKE PATIENT NAME: Leidy Dc ADMISSION DATE: 05/20/2018 DISCHARGE DATE: 05/22/2018 Attending Physician: Chris Alexander PCP: Raymond Galvez MD Code Status: Not on file Highest Readmission Risk Score: 15 The 30 day readmissions risk score is derived from an internally validated risk model which evaluates patient level characteristics, utilization history, medication orders and lab results up until the day of discharge. Patients with a score of 40 or above are considered highest risk for readmission. Specific patient level drivers will be listed at the bottom of the summary. Reason for Hospitalization: Principal Problem: Intractable episodic headache Active Problems: HTN (hypertension) Dissection of vertebral artery (HCC) Chronic low back pain without sciatica Resolved Problems: * No resolved hospital problems. * Operations During Hospitalization: None Procedures During Hospitalization: No procedures performed Initial NIHSS: 1 Discharge NIHSS Total: 1 Discharge Modified Natasha Score: 1 - No significant disability despite symptoms - able to carry out all usual duties and activities PHQ4 Total Score: 0 Stroke Mechanism: Stroke Risk Factors: Dyslipidemia Hypertension Obesity S/p Frozen Elephant Trunk Procedure Body Mass Index (BMI) BMI: 28.36 Total Cholesterol (at time of admission) Cholesterol, Total 197 05/21/2018 HDL (at time of admission) HDL Cholesterol 31 05/21/2018 LDL (at time of admission) LDL Cholesterol 130 05/21/2018 HbA1c Hemoglobin A1C (%) Date Value 05/21/2018 5.6 Tests/Procedures Performed: 05/20/18 MRI Brain wo IVcon: IMPRESSION: No MRI evidence of acute intracranial pathology. Hospital Course: 45 yo male with PMH significant for HLD (Atorvastatin 80mg QD), HTN (Losartan 100mg DQ, Clonidine 0.1mg TID, Metoprolol 100mg QD, Amlodipine 10mg QD), Marfan's (diagnosed 1999), ascending aortic dissection (status post valve sparing aortic root replacement with Niels's procedure; frozen elephant trunk procedure on 03/10/[address] Joe) who is transferred from [facility] complaining of headache, fatigue. ? LWK 05/16 time unknown. Pt states he has been having intermittent headaches and neckache. Pt regularly checks his BP, which he states has been consistently >200. This continued, until 05/20 when he developed LUE and LLE weakness; pt states he has had intermittent left sided weakness since his frozen elephant trunk procedure. Presented to OSH 05/20. iNIHSS 1 (LLE drift). SBP >200. OSH CTH showing no acute pathology. OSH CTA Head showed occluded right vertebral artery. EKG c/f left ventricular strain due to HTN v active ischemia, troponin negative. Received ASA 162mg. He was subsequently transferred to [facility] for further management. ? On arrival, BP 218/118, HR 66. iNIHSS 1 (fluctuating LLE sensory loss). Pt reports current headache all over of 6/10, neck pain. Reports chronic back ache. Denies visual changes. Denies syncope, N/T. Denies change in speech or facial droop. Blood pressures fluctuations during admission. Changes mde for better BP control: New medications: Chlorthalidone 25ng daily and coreg 12.5mg BID Continued on home medication: losartan 10mg daily, Discontinue BP medication: Toprolol XL 100mg daily, clonidine 0.1mg daily Antiplatelets: he was switched from aspirin 81mg to clopidogrel 75mg daily MRI obtained on 05/20/18 shows no acute intracranial pathology. The current etiology of the patient's presentation is believed to be hypertension vs chronic pain due to hypertension leading to headache. Given that the patient was complaining of lower back pain (seems chronic but worsened acutely) and history of previous aortic dissection along with history of Marfan's, workup with CTA Abdomen/Pelvis was pursued prior to discharge. CTA was negative for aortic dissection. It showed however interval enlargement of the mid transverse arch (currently 4.1 cm in maximum diameter; previously 3.6 cm on direct comparison). He is to follow-up at Dr. Joe's clinic to continue to monitor this, and also to continue monitoring his BP, and work with PCP continue to adjust medication. We suggest workup for secondary causes of hypertension be completed as an outpatient. The patient was discharged on 05/21/18 in stable condition. He has Neurology follow-up appointment scheduled for 06/14/18. We have also ordered follow-up appointments with cardiology, cardiothoracic surgery, and chronic pain management. Surgical Service: Not Applicable Transitions of Care Critical Issues: SPECIALIST FOLLOW-UP: Appointments for Next 60 Days Date Time Provider Location Dept Phone 06/14/2018 2:40 PM ASSESSMENT NEUS CEREBROVASC [place] NE[facility] S [facility] [phone] 06/14/2018 3:00 PM LETTY VIDALES NEUR S [facility] [phone] LAB MONITORING NEEDED: - Patient instructed to have repeat BMP drawn in 1 week for monitoring of hypokalemia given initiation of chlorthalidone this admission [place] MEDICATION CHANGES: - Continue home losartan 100mg qD - Start 12.5mg BID of carvedilol, and chlorthalidone 25mg qD, along with Plavix - Potassium 10meq daily - Discontinue metoprolol, and ASA LABS AND PROCEDURES PENDING AT DISCHARGE: No pending results. Consulting Teams During Hospitalization: None Patient Condition @ Discharge: Stable Discharge Disposition: Home/Self Care Information Provided to Patient: WRITTEN Stroke Material Given Addressing: Signs and Symptoms of a Stroke, When to Call 911, Modifiable Risk Factors, Need for Follow- Up After Discharge, Medication Compliance and Smoking Cessation Advice Diet: Low electrolyte diet: 4 gm sodium Activity: Resume pre-hospital activity Wound/Surgical Site Care: None ALLERGIES Allergen Reactions - Bactrim [Sulfametho* Hives - Ciprofloxacin Hives - Tramadol Rash Discharge Medications: Current Discharge Medication List START taking these medications oxyCODONE-acetaminophen (PERCOCET) 1 tablet Take 1 tablet by mouth every 6 hours as needed for Pain (Back pain >7/10). Earliest Fill Date: 05/22/18 Qty: 20 tablet Refills: 0 Associated Diagnoses:Chronic low back pain without sciatica, unspecified back pain laterality carvedilol (COREG) 12.5 mg Take 12.5 mg by mouth twice daily with meals. Qty: 60 tablet Refills: 2 riboflavin (vitamin B2) (VITAMIN B2) 100 mg Take 100 mg by mouth once daily. Qty: 60 tablet Refills: 2 clopidogrel (PLAVIX) 75 mg Take 75 mg by mouth once daily. Qty: 60 tablet Refills: 2 chlorthalidone (HYGROTON) 25 mg Take 25 mg by mouth once daily. Qty: 60 tablet Refills: 2 potassium chloride (K-TAB) 10 mEq Take 10 mEq by mouth once daily. Qty: 60 tablet Refills: 2 CONTINUE these medications which have CHANGED atorvastatin (LIPITOR) 40 mg Take 40 mg by mouth daily at bedtime. Qty: 60 tablet Refills: 2 CONTINUE these medications which have NOT CHANGED RABEprazole (ACIPHEX) 20 mg Take 20 mg by mouth once daily. benzonatate (TESSALON PERLE) 200 mg Take 200 mg by mouth three times daily as needed for Cough. Qty: 60 capsule Refills: 0 Associated Diagnoses:Viral URI with cough albuterol HFA (PROVENTIL HFA, VENTOLIN HFA) 2 Puffs Inhale 2 Puffs as instructed every 4 hours as needed for Wheezing/Shortness of Breath. Qty: 1 Inhaler Refills: 0 Associated Diagnoses:URI with cough and congestion; SOB (shortness of breath); Wheezing losartan (COZAAR) 100 mg Take 100 mg by mouth once daily. pregabalin (LYRICA) 150 mg Take 150 mg by mouth twice daily. STOP taking these medications cloNIDine HCl (CATAPRES) 0.1 mg Comments: Reason for Stopping: metoprolol succinate ER (TOPROL XL) 100 mg Comments: Reason for Stopping: aspirin, enteric coated (ASPIRIN, ENTERIC COATED) 81 mg Comments: Reason for Stopping: Future Appointments: Appointments for Next 60 Days Date Time Provider Location Dept Phone 06/14/2018 2:40 PM ASSESSMENT NEUS CEREBR[facility]ASC [facility] [phone] 06/14/2018 3:00 PM LETTY VIDALES [facility] [phone] This patient?s risk for 30-day readmission is determined using the following contributing drivers Pt variables contributing to increased readmission risk: 19 Most Recent BUN Result 15 Active Medication Orders 9.2 First Resulted Calcium During Admission 1 Previous ED Visit (6 mos.)? 1 Number of Previous ED Visits (6 mos.) 1 Insurance - Medicare 1 Discharge Disposition - Home 1 History of Anemia 1 Active Anticoagulant TIME OF CARE: Discharge Management: I personally spent greater than 30 minutes involved in the discharge management of this patient. SIGNATURE: Susan Grier MD PAGER: [phone] DATE: May 22, 2018 TIME: 11:59 AM DC summary prepared by Dr. Susan Grier. Medications list updated prior to discharge. Anne Marie Henriquez MD Adult Neurology, PGY-4 Please page [id number] for assistance on weekends or after 5 PM on weekdays [facility] STAFF PHYSICIAN NOTE OF PERSONAL INVOLVEMENT IN CARE I have reviewed the discharge summary obtained and documented by the resident and I personally participated in the castillo components. I have discussed the case and management of the patient's care. The following comments/revisions and confirmed relevant castillo components of their note. SIGNATURE: Chris Alexander MD Vascular Neurology Staff May 22, 2018 CONSULT Observed: 05/22/2018 Status: COMPLETED Source: [place] 11:34 AM [facility] REPOSITORY HNO ID: [id number] Author: Julio Ruelas (Fel) Service: Cardiac Surgery Author Type: Fellow Type: Consults Filed: 05/22/2018 11:43 AM Note Text: [facility] SUR[facility]ERY CONSULT NOTE Leidy Nolt [id number] Requesting Provider: Dr Alexander Admit Date: 05/20/2018 LOS : 2 Chief Complaint: Gait disturbance HPI: Pt?is a 45 yo?male with PMH significant for HLD (Atorvastatin 80mg QD), HTN (Losartan 100mg DQ, Clonidine 0.1mg TID, Metoprolol 100mg QD, Amlodipine 10mg QD), Marfan's (diagnosed 1999),?ascending aortic dissection (status post valve sparing aortic root replacement with Niels's procedure;?frozen elephant trunk procedure on 03/10/[address] Joe) who is transferred from [facility] complaining of headache, fatigue. LWK 05/16 time unknown. Presented to OSH 05/20. iNIHSS 1 (LLE drift). SBP >200. CTH showing NAP. CTA Head showed occluded right vertebral artery, normal left vertebral. Transferred to [facility] for further management. On arrival, BP 218/118, HR 66. iNIHSS 1 (fluctuating LLE sensory loss). Pt reports current headache all over of 6/10, neck pain. Reports chronic back ache. Denies visual changes. Denies syncope, N/T. Denies change in speech or facial droop. MRI Brain obtained 05/21/18 showing no evidence of acute intracranial process. CT C/A/P showing interval enlargement of the mid transverse arch (currently 4.1 cm in maximum diameter; previously 3.6 cm on direct comparison). PAST MEDICAL HISTORY: PAST MEDICAL HISTORY Diagnosis Date - Aortic dissection, ascending 03/08/2011 - CAD (coronary artery disease) SVG to RCA - HTN (hypertension) 02/13/2016 - Hyperlipidemia 03/13/2011 - Marfan's syndrome 2010 2010: s/p Niels's procedures, ascending aorta AND arch repair w 28 mm Dacron graft, frozen elephant trunk procedure w direct placement of a 34 mm x 10 cm Exira-Tag thoracic stent graft - S/P mitral valve repair 2010 plication of the anterior leaflet and right axillary aortic cannulation with an 8 mm graft - Stroke (cerebrum) ([facility]) 05/20/2018 PAST SURGICAL HISTORY: PAST SURGICAL HISTORY Procedure Laterality Date - ASCENDING AORTIC GRAFT 03/08/2011 Emergent. Valve sparing aortic root replacement . Aortic valve (Niels's procedure) with 32-mm Valsalva Dacron graft, reconstruction of the RCA, CABGx1 (SVG-RCA), ascending aorta and arch repair with 28- mm Dacron graft, frozen elephant trunk procedure 34 mm x 10 ccm Exira-Tag thoracic stent graft, mitral valve repair with with plication of the anterior leaflet and right axillary aortic cannulation - PAST SURGICAL HISTORY OF right hand surgery after saw injury (lost index finger) - PAST SURGICAL HISTORY OF toe surgery after injury; also hammer toe surgery - PAST SURGICAL HISTORY OF CABGx1 - TONSILLECTOMY HX FAMILY HISTORY: FAMILY HISTORY Problem Relation Age of Onset - other (Marfan's syndrome) Child 2 children with Marfans' - Heart Paternal Uncle had heart failure at age 48 - Ischemic Heart Disease Paternal Grandfather age 60s, [place] - Ischemic Heart Disease Maternal Grandfather age 80s,. strokes, MIs - Hypertension Father SOCIAL HISTORY: Social History Substance Use Topics - Smoking status: Never Smoker - Smokeless tobacco: Never Used - Alcohol use No MEDICATIONS: Prior to Admission Medications: RABEprazole (ACIPHEX) 20 mg tablet Take 20 mg by mouth once daily. benzonatate (TESSALON PERLE) 100 mg capsule Take 2 capsules by mouth three times daily as needed for Cough. albuterol HFA (VENTOLIN HFA) 90 mcg/actuation inhaler Inhale 2 Puffs as instructed every 4 hours as needed for Wheezing/Shortness of Breath. losartan (COZAAR) 100 mg tablet Take 100 mg by mouth once daily. pregabalin (LYRICA) 150 mg capsule Take 150 mg by mouth twice daily. carvedilol (COREG) 12.5 mg tablet Take 1 tablet by mouth twice daily with meals. atorvastatin (LIPITOR) 40 mg tablet Take 1 tablet by mouth daily at bedtime. riboflavin, vitamin B2, (VITAMIN B2) 100 mg tab Take 1 tablet by mouth once daily. clopidogrel (PLAVIX) 75 mg tablet Take 1 tablet by mouth once daily. chlorthalidone (HYGROTON) 25 mg tablet Take 1 tablet by mouth once daily. potassium chloride (K-TAB) 10 mEq tablet Take 1 tablet by mouth once daily. ALLERGIES: ALLERGIES Allergen Reactions - Bactrim [Sulfametho* Hives - Ciprofloxacin Hives - Tramadol Rash COMPLETE REVIEW OF SYSTEMS Constitutional: No weight loss, malaise or fevers. HEENT: Frequent Headaches Resp: Negative for cough, wheezing, or shortness of breath DATA: Laboratory: Recent Labs 05/22/18 0358 05/21/18 0654 05/20/18 0505 WBC 5.46 5.77 5.61 HB 12.9* 13.4 13.6 HCT 38.7* 39.5 39.0 PLT 247 255 269 Recent Labs 05/22/18 0358 05/21/18 0654 05/20/18 0505 NA 140 142 139 K 4.1 3.8 3.2* BUN 19 14 12 CREAT 1.08 0.91 0.90 GLUC 102* 102* 108* Recent Labs 05/20/18 0505 TROPT <0.010 Recent Labs 05/20/18 0505 APTT 28.5 INR 1.0 Radiology: I have personally reviewed the following images/data: CT scan Plan: Case and CT images discussed with Dr Scruggs ( the clinical operations manager surgeon ) The patient needs aggressive BP control . Will need to be seen in Dr. Joe's clinic in 2-4 weeks SIGNATURE: Julio Ruelas MD PAGER: DATE of SERVICE: 05/22/2018 TIME of SERVICE: 11:35 AM CBC AND DIFFERENTIAL Collected: 05/22/2018 Status: F Source: [place] 3:58 AM [facility] REPOSITORY TYPE CODE TESTS RESULT OUT OF REFERENCE UNITS RANGE LAB WBC 3.70-11.00 k/uL WBC 5.46 LAB RBC 4.20-6.00 m/uL RBC 4.43 LAB HGB 13.0-17.0 g/dL Low Hemoglobin 12.9 LAB HCT 39.0-51.0 % Low Hematocrit 38.7 LAB MCV 80.0-100.0 fL MCV 87.4 LAB MCH 26.0-34.0 pG MCH 29.1 LAB MCHC 30.5-36.0 g/dL MCHC 33.3 LAB RDWCV 11.5-15.0 % RDW-CV 13.3 LAB PLTCT 150-400 k/uL Platelet Count 247 LAB MPV 9.0-12.7 fL MPV 9.5 LAB ANEUT % Neut% 49.4 LAB AANEUT 1.45-7.50 k/uL Abs Neut 2.68 LAB ALYMP % Lymph% 30.6 LAB AALYMP 1.00-4.00 k/uL Abs Lymph 1.67 LAB AMONO % [place]% 15.8 LAB AAMONO <0.87 k/uL Abs [place] 0.86 LAB AEOS % Eosin% 3.8 LAB AAEOS <0.46 k/uL Abs Eosin 0.21 LAB ABASO % Baso% 0.4 LAB AABASO <0.11 k/uL Abs Baso <0.03 LAB AUNRBC 0 /100 WBC NRBCs 0.0 LAB ABNRBC <0.01 k/uL Absolute nRBC <0.01 LAB DTYP DTYPE Auto Diff Performed By: #### CBCDIF, CMP #### [facility] [address] [place] [id number] COMP METABOLIC PANEL Collected: 05/22/2018 Status: F Source: [place] 3:58 AM [facility] REPOSITORY TYPE CODE TESTS RESULT OUT OF REFERENCE UNITS RANGE LAB TP 6.3-8.0 g/dL Protein, Total 6.3 LAB ALB 3.9-4.9 g/dL Albumin 4.0 LAB CA 8.5-10.2 mg/dL Calcium, Total 9.1 LAB TBIL 0.2-1.3 mg/dL Bilirubin, Total 0.2 LAB ALKP 38-113 U/L Alkaline Phosphatase 83 LAB AST 14-40 U/L AST 26 Result Comment: Results may be falsely increased due to interference by hemolysis. Suggest reorder as clinically indicated. LAB GLU 74-99 mg/dL High Glucose 102 Result Comment: The [place] [employer] (ADA) provides guidance for cutoff values for fasting glucose and random glucose. The ADA defines fasting as no caloric intake for at least 8 hours. Fas ting plasma glucose results between 100 to 125 mg/dL indicate increased risk for diabetes (prediabetes). Fasting plasma glucose results greater than or equal to 126 mg/dL meet the criteria for diagnosis of diabetes. In the absence of unequivocal hyperglycemia, results should be confirmed by repeat testing. In a patient with classic symptoms of hyperglycemia or hyperglycemic crisis, random plasma glucose results greater than or equal to 200 mg/dL meet the criteria for diagnosis of diabetes. Reference: Standards of Medical Care in Diabetes 2016, [place] [employer]. Diabetes Care. 2016.39(Suppl 1). LAB BUN 9-24 mg/dL BUN 19 LAB CRET 0.73-1.22 mg/dL Creatinine 1.08 LAB NA 136-144 mmol/L Sodium 140 LAB K 3.7-5.1 mmol/L Potassium 4.1 LAB CL 97-105 mmol/L Chloride 101 LAB CO2 22-30 mmol/L CO2 27 LAB AGAP 9-18 mmol/L Anion Gap 12 LAB ALT 10-54 U/L ALT 30 LAB GFRAA eGFR- Amer. >60 LAB GFRNAA . eGFR-All Other Races >60 Result Comment: eGFR (Estimated GFR) Units of measure: mL/min/1.73 meters squared eGFR is derived from the reexpressed MDRD Study equation using the following parameters: serum creatinine, age, gender and race. The creatinine assay has been calibrated to be traceable to IDMS. An eGFR <60 mL/min/1.73m2 for >3 months is consistent with chronic kidney disease. Refer to KDOQI guidelines for clinical interpretation. In patients with unstable renal function, e.g. those with acute kidney injury, the eGFR may not accurately reflect actual GFR. Performed By: #### CBCDIF, CMP #### [facility] [address] [place] [id number] PROGRESS Observed: 05/22/2018 Status: COMPLETED Source: [place] 12:32 AM [facility] REPOSITORY HNO ID: [id number] Author: Chris Alexander Service: Neurology Stroke Author Type: Physician Type: Progress Notes Filed: 05/22/2018 3:19 PM Note Text: PROGRESS NOTE NEURO STROKE SERVICE DATE: 05/22/2018 SERVICE TIME: 0600 Subjective INTERVAL HISTORY: No events overnight. VSS, afebrile. SBP 130-170/ HR 60-70. CT C/A/P showing interval enlargement of the mid transverse arch (currently 4.1 cm in maximum diameter; previously 3.6 cm on direct comparison) Awaiting CTS consult, likely DC today MEDICATIONS Current hospital medications: atorvastatin 40 mg tab(s) (LIPITOR) 40 mg ORAL AT BEDTIME carvedilol 12.5 mg tab(s) (COREG) 12.5 mg ORAL BID w MEALS riboflavin (vitamin B2) 100 mg tab(s) (VITAMIN B2) 100 mg ORAL DAILY iv contrast (radiology procedure) INTRAVENOUS DIRECTED PRN chlorthalidone 12.5 mg tab(s) (HYGROTON) 12.5 mg ORAL DAILY pregabalin 150 mg cap(s) (LYRICA) 150 mg ORAL BID benzonatate 200 mg cap(s) (TESSALON PERLE) 200 mg ORAL TID PRN albuterol HFA 90 mcg/actuation 2 Puff (PROVENTIL HFA, VENTOLIN HFA) 2 Puff INHALATION q [address] 20 mg tab(s) (PROTONIX) 20 mg ORAL DAILY (6 AM) enoxaparin 40 mg injection (LOVENOX) 40 mg SUBCUTANEOUS DAILY NaCl 0.9% iv infusion 75 mL/hr INTRAVENOUS CONTINUOUS labetalol 10 mg injection syringe (NORMODYNE) 10 mg INTRAVENOUS q 10 MIN PRN hydrALAZINE 5 mg injection (APRESOLINE) 5 mg INTRAVENOUS q 1 H PRN oxyCODONE-acetaminophen 5-325 mg 1-2 tablet (PERCOCET) 1-2 tablet ORAL q 4 H PRN losartan 100 mg tab(s) (COZAAR) 100 mg ORAL DAILY aspirin 81 mg chewable tab(s) 81 mg ORAL DAILY Objective PHYSICAL EXAM Vital Signs: BP 172/97 Pulse 64 Temp 36.9 ?C (98.5 ?F) (Oral) Resp 17 Ht 193 cm (6' 4) Wt 105.7 kg (233 lb) SpO2 94% BMI 28.36 kg/m? GENERAL: Awake/easily arousable. HEENT: Normocephalic/atraumatic RESPIRATORY: Normal respiratory effort. Clear to auscultation without rhonchi, rales, wheezing. CARDIOVASCULAR: RRR, normal S1, S2 auscultated, no murmur present. ?No lower extremity edema. GI: No hernia, masses, hepatosplenomegaly or lymphadenopathy. EXTREMITIES: No cyanosis, clubbing or edema. SKIN: Skin color, texture, turgor normal. No rashes or lesions. MUSCULOSKELETAL Muscular strength intact. No joint swelling or tenderness. ? NEUROLOGICAL: LOC: 0 - alert and responsive 0 LOC Questions: 0 - both correct 0 LOC Commands: 0 - both correct 0 LOC Normal Gaze: 0 - normal gaze 0 Visual Waters: 0 - no visual loss 0 Facial Palsy: 0 - normal 0 Motor Left Arm: 0 - no drift 0 Motor Right Arm: 0 - no drift 0 Motor Left Le - no drift 0 Motor Right Le - no drift 0 Limb Ataxia: 0 - no ataxia (or aphasic, hemiplegic) 0 Sensory: 0 - normal 0 Language: 0 - normal 0 Dysarthria: 0 - normal 0 Extinction/Neglect: 0 - normal, none detected (or visual loss alone) 0 Total Daily NIHSS: 0 (05/22/18 0750 : Latisha Melendez) 0 MENTAL STATUS: Alert, oriented to person, place and time and Follows commands CRANIAL NERVES: PERRLA, EOM's intact, Visual waters intact to confrontation, Extraocular movements intact, Facial sensation intact, Face symmetric, No facial droop or ptosis, Hearing intact to finger rub bilaterally, No dysarthria, Palate elevates symmetrically, Tongue protrudes midline and Shoulder shrug intact and symmetric MOTOR: No drift, Normal tone and Normal bulk MOTOR STRENGTH: Upper and lower extremity 5/5 bilaterally REFLEXES: UE and LE reflexes are equal and reactive SENSATION: Sensation intact to light touch throughout COORDINATION: Finger-to- nose-finger intact bilaterally GAIT: Not assessed DATA: Most recent labs and imaging results. MEDICAL EVENTS: No medical events have been recorded. STROKE 9 CARE AND PREVENTION CHECKLIST 1. Is the patient currently on an ANTITHROMBOTIC medication (Antiplatelet or Anticoagulant): Aspirin 2. Does the patient have known AFIB/FLUTTER: No 3. Is the patient on a STATIN: Atorvastatin 80 mg 4. Is the patient on VTE prophylaxis: Pharmacological prophylaxis;Mechanical prophylaxis Pharmacological intervention type: Lovenox Mechanical intervention type: Intermittent compression stocking(s) 5. GLYCEMIC Control Medications: Not Diabetic 6. Stroke BP Goals: <180/105 Stroke BP Control: BP well controlled 7. Stroke IVF/Nutrition: NPO except med 8. TEMPERATURE Control: Normothermic 9. Does the patient need THERAPY: No Reason for no therapy orders: Patient is medically unstable, no therapy at this time Stroke Care and Prevention (personally reviewed by Latisha Melendez DO): Daily Rounding Date: 05/21/18 Daily Rounding Time: 0823 PROBLEM LIST: Principal Problem: Intractable episodic headache POA: Yes Active Problems: HTN (hypertension) POA: Yes Dissection of vertebral artery (HCC) POA: Yes Resolved Problems: * No resolved hospital problems. * Assessment/Plan Pt?is a 45 yo?male with PMH significant for HLD (Atorvastatin 80mg QD), HTN (Losartan 100mg DQ, Clonidine 0.1mg TID, Metoprolol 100mg QD, Amlodipine 10mg QD), Marfan's (diagnosed 1999),?ascending aortic dissection (status post valve sparing aortic root replacement with Niels's procedure;?frozen elephant trunk procedure on 03/10/[address] Joe) who is transferred from [facility] complaining of headache, fatigue. LWK 05/16 time unknown. Presented to OSH 05/20. iNIHSS 1 (LLE drift). SBP >200. CTH showing NAP. CTA Head showed occluded right vertebral artery, normal left vertebral. Transferred to [facility] for further management. On arrival, BP 218/118, HR 66. iNIHSS 1 (fluctuating LLE sensory loss). Pt reports current headache all over of 6/10, neck pain. Reports chronic back ache. Denies visual changes. Denies syncope, N/T. Denies change in speech or facial droop. MRI Brain obtained 05/21/18 showing no evidence of acute intracranial process. CT C/A/P showing interval enlargement of the mid transverse arch (currently 4.1 cm in maximum diameter; previously 3.6 cm on direct comparison). Awaiting CTS consult, likely DC today. Stroke Mechanism Total Daily NIHSS: 0 PLAN Neurology Dissection of vertebral artery (HCC) Assessment AND Plan Assessment: - OSH CTA Head showed occluded right vertebral artery 2/2 dissection - Presenting complaint. Concern for perfusion defect given patient's recent Frozen Elephant Trunk procedure. - iNIHSS 1 (LLE drift). SBP >200 - CTH showing NAP - CTA Head showed occluded right vertebral artery, normal left vertebral. - MRI showing no acute intracranial pathology PLAN: - SBP goal <140 * Intractable episodic headache Assessment AND Plan Assessment: - Presenting complaint. Concern for perfusion defect given patient's recent Frozen Elephant Trunk procedure. - iNIHSS 1 (LLE drift). SBP >200 - CTH showing NAP - CTA Head showed occluded right vertebral artery, normal left vertebral. - MRI showing no acute intracranial pathology PLAN: - Optimize blood pressure management: Losartan 100mg qD, carvedilol 12.5mg BID, Nifedipine 90mg qD Cardiovascular HTN (hypertension) Assessment AND Plan Assessment: - SBP on initial presentation to OSH in 200s - Home regimen: Losartan 100mg DQ, Clonidine 0.1mg TID, Metoprolol 100mg QD, Amlodipine 10mg QD - Likely worsened by chronic lower back pain PLAN: - Optimize blood pressure management: Losartan 100mg qD, carvedilol 12.5mg BID, Nifedipine 90mg qD Imaging Ordered Today: None SIGNATURE: Latisha Melendez DO PATIENT NAME: Leidy Dc DATE: May 22, 2018 TIME: 6:33 AM PAGER/CONTACT #: [phone] Chris Alexander MD May 22, 2018 3:19 PM PROGRESS Observed: 05/21/2018 Status: COMPLETED Source: [place] 5:21 PM [facility] REPOSITORY HNO ID: [id number] Author: Sarah Esparza (Tech) Service: Radiology Author Type: Commissioned Sales Associate Type: Progress Notes Filed: 05/21/2018 5:22 PM Note Text: Radiology Service Progress Note PATIENT NAME: Leidy Dc DATE OF SERVICE: May 21, 2018 TIME: 5:21 PM PATIENT IDENTITY VERIFICATION COMPLETED USING TWO (2) METHODS: Patient confirmed name verbally and ID band matches.. PATIENT GENDER DATA: Male PATIENT RELEVANT IMPLANT DATA REVIEWED: Yes RADIOLOGY DEPARTMENT: CT; Exam(s) Completed: CTA Cardiac PERIPHERAL IV DATA: Inpatient: see LDA documentation SIGNED BY: Sarah Esparza May 21, 2018 5:21 PM CTA C/A/P (NONGATED) W Observed: 05/21/2018 Status: F Source: [facility] 5:20 PM [facility] REPOSITORY * * *Final Report* * * DATE OF EXAM: May 21 2018 5:20PM JQC 0131 - CTA C/A/P (NONGATED) W IVCON / PROCEDURE REASON: Marfan's syndrome * * * * Physician Interpretation * * * * Examination: CTA chest, CTA abdomen and pelvis dated 05/21/2018 5:20 PM. Comparison: 01/18/2013. History: 47 years old Male with history of Marfan syndrome and aortic dissection. Status post remote aortic root replacement with reimplantation of the coronary arteries, and resuspension of the aortic valve, CABG x1 with SVG to RCA, ascending aorta and arch repair, frozen elephant trunk procedure with direct placement of thoracic stent graft. The patient now presents with new right vertebral artery dissection, resistant hypertension, and worsening of chronic back pain. Technique: Multi-detector CT technology was employed (Siemens Definition + multislice scanner). Spiral imaging was performed prior to, and following the IV administration of contrast material. In addition, delayed imaging was performed. A low-osmolar contrast agent was used (100 cc of Omnipaque 350). CT Dose-Length Product (DLP): [address] Dose Reduction Employed: Automated exposure control (AEC) For optimization of anatomic evaluation, multiplanar reconstruction, maximum intensity projections, and advanced 3-D off-line postprocessing were performed on a dedicated stand-alone workstation by the interpreting physician. RESULT: Potential study limitations: None. CHEST: The chest wall is remarkable for prior median sternotomy. There is no significant adenopathy noted in the axillae, mediastinum, and patrick. The pericardium and pulmonary arteries appear normal. Lung windows reveal no acute abnormalities. Tiny calcified subpleural nodule in the right upper lobe. Stable 5 mm noncalcified nodule in the right upper lobe. There is no abnormal pulmonary parenchymal mass, infiltrate, or pleural effusion. The cardiac chambers demonstrate normal atrioventricular and ventriculoarterial concordance, and systemic and pulmonary venous return. The cardiac chamber sizes are normal. Mild lipomatous hypertrophy of interatrial septum. There is at least mild concentric LV hypertrophy. The coronary arteries have normal origins and courses. There are minimal coronary calcifications identified, though this study was not optimized for coronary artery evaluation. Bypass grafts: Patent aortocoronary graft to the RCA, which lies immediately behind the midline of the sternum. VASCULAR WITH ADVANCED 3-D OFF-LINE POSTPROCESSING: Assessment of aortic root and valve anatomy is limited in the non-gated study, though appears to be trileaflet and without calcification. The ascending thoracic aorta graft extends to the arch and has normal dimensions. Stable infolding of the ascending aortic graft is again noted. The reimplanted arch arteries are patent. No definite dissection identified in the proximal visualized portions of either vertebral artery. Endovascular stent graft noted at the origin of the left subclavian artery extending to the mid descending thoracic aorta. There is a surgical anastomosis at the proximal end of the stent graft, consistent with a frozen elephant-trunk graft. The descending thoracic aorta beyond the stent grafts is normal in caliber course and contour. The abdominal aorta is normal in course, caliber with minimal calcific atherosclerotic changes in the infrarenal segment. There is no acute aortic pathology. Trauma Therapist dimensions of the thoracic aorta are as follows: 4.0 cm at the replaced aortic root 2.8 cm at the graft replaced ascending aorta Beyond the graft, aorta measures: 4.1 cm at the mid transverse arch proximal to the stent (previously 3.6 cm on direct comparison) 3.5 cm at the proximal descending thoracic aorta with stent-graft 3.2 cm at the mid descending thoracic aorta. Beyond the stent: 2.6 cm at the mid descending thoracic aorta 2.5 cm at the diaphragmatic hiatus The celiac axis, SMA, and ARLEN are patent. There are single renal arteries bilaterally, both of which appear patent. The pelvic arteries are normal in caliber and contour. ABDOMEN: The liver, gallbladder, spleen, and pancreas appear normal. The adrenal glands appear normal. Both kidneys are normal in size, shape, and density, though there appears to be of parapelvic cyst in the left lower pole. There is no abnormal mass or hydronephrosis. PELVIS: There is no significant retroperitoneal adenopathy. No free fluid or free air within the abdomen or pelvis. Diverticulosis of the large bowel, otherwise unremarkable on this non-GI contrast examination. The urinary bladder appears normal. There are scattered phleboliths within the deep pelvis. BONES: Unchanged sclerotic foci in the left fourth rib. No definite dural ectasia of the lumbosacral spine identified. IMPRESSION: 1. No new acute aortic pathology. No dissection, intramural hematoma, or contained rupture. No definite dissection identified in the proximal visualized portions of either vertebral artery. 2. Essentially stable appearance of the ectatic replaced aortic root, ascending aortic graft and stent-grafted proximal descending thoracic aorta [up to mid level], though there has been interval enlargement of the mid transverse arch (currently 4.1 cm in maximum diameter; previously 3.6 cm on direct comparison). Stable infolding of the proximal ascending aortic graft. Remainder of the thoracic and abdominal aorta are normal in course and caliber with minimal calcification atherosclerotic changes in the infrarenal segment. No acute aortic pathology. 3. Patent aortocoronary graft to the RCA. Director Of Channel Marketing: PSCB Transcribe Date/Time: May 21 2018 5:41P Dictated by : FROILAN HOGUE MD This examination was interpreted and the report reviewed and electronically signed by: FROILNA HOGUE MD on May 21 2018 6:02PM EST [id number] CASE MANAGEM Observed: 05/21/2018 Status: COMPLETED Source: [place] 2:25 PM [facility] REPOSITORY HNO ID: [id number] Author: Talisha Torres (Sw) Service: (none) Author Type: Recreation Teacher Type: Care Mgt Progress Note Filed: 05/21/2018 2:26 PM Note Text: CARE MANAGEMENT PROGRESS NOTE SERVICE DATE: 05/21/2018 SERVICE TIME: 2:25 pm LOS: 1 day IM letter given to patient on 05/21/2018. SIGNATURE: Talisha Melissa SUPERVISOR STONE PATIENT NAME: eLidy Dc DATE: May 21, 2018 TIME: 2:25 PM PAGER/CONTACT #: [phone] CASE MANAGEM Observed: 05/21/2018 Status: COMPLETED Source: [place] 11:46 AM [facility] REPOSITORY HNO ID: [id number] Author: Talisha Torres (Sw) Service: (none) Author Type: Recreation Teacher Type: Care Mgt Progress Note Filed: 05/21/2018 11:47 AM Note Text: CARE MANAGEMENT PROGRESS NOTE SERVICE DATE: 05/21/2018 SERVICE TIME: 11:46 am LOS: 1 day Needs Prior to Discharge: None Per Joel, DC planned for today with no skilled needs. Patient lives in [place]. Spouse is enroute to for 4 pm d/c SIGNATURE: BRITT Rand PATIENT NAME: Leidy Dc DATE: May 21, 2018 TIME: 11:46 AM PAGER/CONTACT #: [phone] PLAN OF CARE Observed: 05/21/2018 Status: COMPLETED Source: [place] 11:07 AM [facility] REPOSITORY HNO ID: [id number] Author: Deana Perera (Pellet Mill Operator) Service: (none) Author Type: (none) Type: Plan of Care Filed: 05/21/2018 11:07 AM Note Text: BLOOD BANK LABORATORY TECHNOLOGIST BEDSIDE DELIVERY SURVEY 1. Patient to use [facility] Bedside Delivery - YES 2. If fax, patient would like us to fax prescriptions to Pharmacy of choice a. Pharmacy: b. Location: c. Phone: 3. Insurance card on file - YES 4. Credit card for payment - N/A No prescriptions yet. Please page [phone] upon discharge. PROGRESS Observed: 05/21/2018 Status: COMPLETED Source: [place] 7:07 AM [facility] REPOSITORY HNO ID: [id number] Author: Chris Alexander Service: Neurology Stroke Author Type: Physician Type: Progress Notes Filed: 05/21/2018 11:09 PM Note Text: PROGRESS NOTE NEURO STROKE SERVICE DATE: 05/21/2018 SERVICE TIME: 0707AM Subjective INTERVAL HISTORY: No events overnight, patient is feeling well today SBP 130s-154 MRI Brain obtained 05/21/18: no evidence of acute intracranial process MEDICATIONS Current hospital medications: atorvastatin 40 mg tab(s) (LIPITOR) 40 mg ORAL AT BEDTIME carvedilol 12.5 mg tab(s) (COREG) 12.5 mg ORAL BID w MEALS riboflavin (vitamin B2) 100 mg tab(s) (VITAMIN B2) 100 mg ORAL DAILY iv contrast (radiology procedure) INTRAVENOUS DIRECTED PRN NIFEdipine ER 90 mg tab(s) (PROCARDIA XL) 90 mg ORAL DAILY pregabalin 150 mg cap(s) (LYRICA) 150 mg ORAL BID benzonatate 200 mg cap(s) (TESSALON PERLE) 200 mg ORAL TID PRN albuterol HFA 90 mcg/actuation 2 Puff (PROVENTIL HFA, VENTOLIN HFA) 2 Puff INHALATION q [address] 20 mg tab(s) (PROTONIX) 20 mg ORAL DAILY (6 AM) enoxaparin 40 mg injection (LOVENOX) 40 mg SUBCUTANEOUS DAILY NaCl 0.9% iv infusion 75 mL/hr INTRAVENOUS CONTINUOUS labetalol 10 mg injection syringe (NORMODYNE) 10 mg INTRAVENOUS q 10 MIN PRN hydrALAZINE 5 mg injection (APRESOLINE) 5 mg INTRAVENOUS q 1 H PRN oxyCODONE-acetaminophen 5-325 mg 1-2 tablet (PERCOCET) 1-2 tablet ORAL q 4 H PRN losartan 100 mg tab(s) (COZAAR) 100 mg ORAL DAILY aspirin 81 mg chewable tab(s) 81 mg ORAL DAILY Objective PHYSICAL EXAM Vital Signs: BP 145/76 Pulse 65 Temp 36.7 ?C (98 ?F) (Oral) Resp 16 Ht 193 cm (6' 4) Wt 105.7 kg (233 lb) SpO2 96% BMI 28.36 kg/m? GENERAL: Awake/easily arousable. HEENT: Normocephalic/atraumatic RESPIRATORY: Normal respiratory effort. Clear to auscultation without rhonchi, rales, wheezing. CARDIOVASCULAR: RRR, normal S1, S2 auscultated, no murmur present. No lower extremity edema. GI: No hernia, masses, hepatosplenomegaly or lymphadenopathy. EXTREMITIES: No cyanosis, clubbing or edema. SKIN: Skin color, texture, turgor normal. No rashes or lesions. MUSCULOSKELETAL Muscular strength intact. No joint swelling or tenderness. NEUROLOGICAL: LOC: 0 - alert and responsive 0 LOC Questions: 0 - both correct 0 LOC Commands: 0 - both correct 0 LOC Normal Gaze: 0 - normal gaze 0 Visual Waters: 0 - no visual loss 0 Facial Palsy: 0 - normal 0 Motor Left Arm: 0 - no drift 0 Motor Right Arm: 0 - no drift 0 Motor Left Le - drift but does not hit bed 1 Motor Right Le - no drift 0 Limb Ataxia: 0 - no ataxia (or aphasic, hemiplegic) 0 Sensory: 0 - normal 0 Language: 0 - normal 0 Dysarthria: 0 - normal 0 Extinction/Neglect: 0 - normal, none detected (or visual loss alone) 0 Total Daily NIHSS: 1 (05/21/18 0822 : Susan ([facility]) Marvel) 1 MENTAL STATUS: Alert, oriented to person, place and time and Follows commands CRANIAL NERVES: PERRLA, EOM's intact, Visual waters intact to confrontation, Extraocular movements intact, Facial sensation intact, Face symmetric, No facial droop or ptosis, Hearing intact to finger rub bilaterally, No dysarthria, Palate elevates symmetrically, Tongue protrudes midline and Shoulder shrug intact and symmetric MOTOR: No drift, Normal tone and Normal bulk MOTOR STRENGTH: Upper and lower extremity 5/5 bilaterally REFLEXES: UE and LE reflexes are equal and reactive SENSATION: Sensation intact to light touch throughout COORDINATION: Finger-to- nose-finger intact bilaterally GAIT: Not assessed DATA: Diagnostic tests reviewed for today's visit: Lipids, HbA1c, Recent Labs 05/21/18 0654 CHOL 197 HDL 31* LDL 130* TG 179* HBA1C 5.6 CMP, CBC, Coags Recent Labs 05/21/18 0654 05/20/18 0505 NA 142 139 K 3.8 3.2* CHLOR 101 100 CO2 25 25 BUN 14 12 CREAT 0.91 0.90 GLUC 102* 108* CA 8.7 9.2 WBC 5.77 5.61 HB 13.4 13.6 HCT 39.5 39.0 PLT 255 269 INR -- 1.0 APTT -- 28.5 Most recent labs and imaging results. 05/20/18 MRI Brain wo IVcon: IMPRESSION: No MRI evidence of acute intracranial pathology. MEDICAL EVENTS: No medical events have been recorded. STROKE 9 CARE AND PREVENTION CHECKLIST 1. Is the patient currently on an ANTITHROMBOTIC medication (Antiplatelet or Anticoagulant): Aspirin 2. Does the patient have known AFIB/FLUTTER: No 3. Is the patient on a STATIN: Atorvastatin 80 mg 4. Is the patient on VTE prophylaxis: Pharmacological prophylaxis;Mechanical prophylaxis Pharmacological intervention type: Lovenox Mechanical intervention type: Intermittent compression stocking(s) 5. GLYCEMIC Control Medications: Not Diabetic 6. Stroke BP Goals: <180/105 Stroke BP Control: BP well controlled 7. Stroke IVF/Nutrition: NPO except med 8. TEMPERATURE Control: Normothermic 9. Does the patient need THERAPY: No Reason for no therapy orders: Patient is medically unstable, no therapy at this time Stroke Care and Prevention (personally reviewed by Susan Grier MD): Daily Rounding Date: 05/21/18 Daily Rounding Time: 822 PROBLEM LIST: Principal Problem: Intractable episodic headache POA: Yes Active Problems: HTN (hypertension) POA: Yes Dissection of vertebral artery (HCC) POA: Yes Resolved Problems: * No resolved hospital problems. * Assessment/Plan Pt is a 45 yo male with PMH significant for HLD (Atorvastatin 80mg QD), HTN (Losartan 100mg DQ, Clonidine 0.1mg TID, Metoprolol 100mg QD, Amlodipine 10mg QD), Marfan's (diagnosed 1999), ascending aortic dissection (status post valve sparing aortic root replacement with Niels's procedure; frozen elephant trunk procedure on 03/10/[address] Joe) who is transferred from [facility] complaining of headache, fatigue. LWK 05/16 time unknown. Presented to OSH 05/20. iNIHSS 1 (LLE drift). SBP >200. CTH showing NAP. CTA Head showed occluded right vertebral artery, normal left vertebral. Transferred to [facility] for further management. On arrival, BP 218/118, HR 66. iNIHSS 1 (fluctuating LLE sensory loss). Pt reports current headache all over of 6/10, neck pain. Reports chronic back ache. Denies visual changes. Denies syncope, N/T. Denies change in speech or facial droop. Stroke Mechanism Total Daily NIHSS: 1 PLAN Neurology * Intractable episodic headache Assessment: - Presenting complaint. Concern for perfusion defect given patient's recent Frozen Elephant Trunk procedure. - iNIHSS 1 (LLE drift). SBP >200 - CTH showing NAP - CTA Head showed occluded right vertebral artery, normal left vertebral. - MRI showing no acute intracranial pathology PLAN: - Optimize blood pressure management: Losartan 100mg qD, carvedilol 12.5mg BID, Nifedipine 90mg qD Dissection of vertebral artery (HCC) Assessment: - OSH CTA Head showed occluded right vertebral artery 2/2 dissection - Presenting complaint. Concern for perfusion defect given patient's recent Frozen Elephant Trunk procedure. - iNIHSS 1 (LLE drift). SBP >200 - CTH showing NAP - CTA Head showed occluded right vertebral artery, normal left vertebral. - MRI showing no acute intracranial pathology PLAN: - SBP goal <140 Cardiovascular HTN (hypertension) Assessment: - SBP on initial presentation to OSH in 200s - Home regimen: Losartan 100mg DQ, Clonidine 0.1mg TID, Metoprolol 100mg QD, Amlodipine 10mg QD - Likely worsened by chronic lower back pain PLAN: - Optimize blood pressure management: Losartan 100mg qD, carvedilol 12.5mg BID, Nifedipine 90mg qD Imaging Ordered Today: None SIGNATURE: Susan Grier MD PATIENT NAME: Leidy Dc DATE: May 21, 2018 TIME: 7:07 AM PAGER/CONTACT #: [phone] [facility] STAFF PHYSICIAN NOTE OF PERSONAL INVOLVEMENT IN CARE I have reviewed the progress note obtained and documented by the resident and I personally participated in the castillo components. I have discussed the case and management of the patient's care. The following comments/revisions and confirmed relevant castillo components of their note. IMPRESSION 45yo RH man with PMHx significant for Marfan's, AAA s/p repair 2010, HTN, HLD who was transferred from [facility] for concern of stroke and CTA showing R V2 dissection. Pt c/o generalized pain, weakness, but also told ED he had some L sided n/t/weakness (which he tells us today he has had since his AAA repair 2010), so CTA completed, as above, and transferred for further management. MRI brain negative for acute infarct - R V2 dissection in setting of Marfan's and uncontrolled HNT - Refractory hypertension which maybe exacerbated by chronic intermittent pain. Increased pain caused him to present initially at [place]. PLAN: -- CTA chest and abdomen to assess for change ins AAA s/p repair. If negative ok to go home -- He will need outpatient follow-up at a chronic pain center to better manage pain. I suspect BP spikes may be associated with pain exacerbations. SIGNATURE: Chris Alexander MD Vascular Neurology Staff May 21, 2018 CBC AND DIFFERENTIAL Collected: 05/21/2018 Status: F Source: [place] 6:54 AM [facility] REPOSITORY TYPE CODE TESTS RESULT OUT OF REFERENCE UNITS RANGE LAB WBC 3.70-11.00 k/uL WBC 5.77 LAB RBC 4.20-6.00 m/uL RBC 4.51 LAB HGB 13.0-17.0 g/dL Hemoglobin 13.4 LAB HCT 39.0-51.0 % Hematocrit 39.5 LAB MCV 80.0-100.0 fL MCV 87.6 LAB MCH 26.0-34.0 pG MCH 29.7 LAB MCHC 30.5-36.0 g/dL MCHC 33.9 LAB RDWCV 11.5-15.0 % RDW-CV 13.3 LAB PLTCT 150-400 k/uL Platelet Count 255 LAB MPV 9.0-12.7 fL MPV 9.5 LAB ANEUT % Neut% 55.5 LAB AANEUT 1.45-7.50 k/uL Abs Neut 3.18 LAB ALYMP % Lymph% 27.6 LAB AALYMP 1.00-4.00 k/uL Abs Lymph 1.59 LAB AMONO % [place]% 12.8 LAB AAMONO <0.87 k/uL Abs [place] 0.74 LAB AEOS % Eosin% 3.6 LAB AAEOS <0.46 k/uL Abs Eosin 0.21 LAB ABASO % Baso% 0.5 LAB AABASO <0.11 k/uL Abs Baso 0.03 LAB AUNRBC 0 /100 WBC NRBCs 0.0 LAB ABNRBC <0.01 k/uL Absolute nRBC <0.01 LAB DTYP DTYPE Auto Diff Performed By: #### CBCDIF, LIPB, CMP, HBA1C #### [facility] [address] [place] [id number] LIPID PANEL, BASIC Collected: 05/21/2018 Status: F Source: [place] 6:54 AM [facility] REPOSITORY TYPE CODE TESTS RESULT OUT OF REFERENCE UNITS RANGE LAB CHOL <200 mg/dL Cholesterol 197 Result Comment: <200 mg/dL, Desirable 200-239 mg/dL, Borderline high >239 mg/dL, High LAB TRIGLY <150 mg/dL Triglyceride High 179 Result Comment: <150 mg/dL, Normal 150-199 mg/dL, Borderline high 200-499 mg/dL, High >499 mg/dL, Very high LAB HDL >39 mg/dL HDL-Cholesterol Low 31 Result Comment: 40-59 mg/dL, Acceptable >59 mg/dL, High: Negative risk factor for coronary heart disease <40 mg/dL, Low: Positive risk factor for coronary heart disease LAB LDL <100 mg/dL LDL-Cholesterol High 130 Result Comment: <100 mg/dL, Optimal 100-129 mg/dL, Near optimal/above optimal 130-159 mg/dL, Borderline high 160-189 mg/dL, High >189 mg/dL, Very high Secondary prevention optimal LDL Cholesterol levels are recommended to be < 70 mg/dL LAB NONHDL <130 mg/dL Non HDL High Cholesterol 166 Result Comment: <130 mg/dL, Optimal 130-159 mg/dL, Near optimal/above optimal 160-189 mg/dL, Borderline high 190-219 mg/dL, High >219 mg/dL, Very high Secondary prevention optimal non HDL Cholesterol levels are recommended to be < 100 mg/dL LAB FT hrs Fasting Time Unknown LAB VLDL <30 mg/dL VLDL 36 High Cholesterol LAB TCHDL <5.10 TC:HDL Ratio High 6.35 LAB LDLHDL <2.54 LDL:HDL Ratio High 4.19 Result Comment: Reference: 1. National Cholesterol Education Program ATP III Guideline At-A-Glance Quick Desk Reference: National Heart, Lung, and Blood Ehrhardt. National Institutes of Health. 2001: NIH Publication No. 01-3305. 2. An International Atherosclerosis Society position paper: global recommendations for the management of dyslipidemia: executive summary, Atherosclerosis. 2014: 232(2):410-413. Performed By: #### CBCDIF, LIPB, CMP, HBA1C #### [facility] [address] [place], [place] [address] COMP METABOLIC PANEL Collected: 05/21/2018 Status: F Source: [place] 6:54 AM [facility] REPOSITORY TYPE CODE TESTS RESULT OUT OF REFERENCE UNITS RANGE LAB TP 6.3-8.0 g/dL Protein, Total 6.4 LAB ALB 3.9-4.9 g/dL Albumin 4.0 LAB CA 8.5-10.2 mg/dL Calcium, Total 8.7 LAB TBIL 0.2-1.3 mg/dL Bilirubin, Total 0.4 LAB ALKP 38-113 U/L Alkaline Phosphatase 79 LAB AST 14-40 U/L AST 18 LAB GLU 74-99 mg/dL Glucose High 102 Result Comment: The [place] Diabetes Association (ADA) provides guidance for cutoff values for fasting glucose and random glucose. The ADA defines fasting as no caloric intake for at least 8 hours. Fas ting plasma glucose results between 100 to 125 mg/dL indicate increased risk for diabetes (prediabetes). Fasting plasma glucose results greater than or equal to 126 mg/dL meet the criteria for diagnosis of diabetes. In the absence of unequivocal hyperglycemia, results should be confirmed by repeat testing. In a patient with classic symptoms of hyperglycemia or hyperglycemic crisis, random plasma glucose results greater than or equal to 200 mg/dL meet the criteria for diagnosis of diabetes. Reference: Standards of Medical Care in Diabetes 2016, [place] Diabetes Association. Diabetes Care. 2016.39(Suppl 1). LAB BUN 9-24 mg/dL BUN 14 LAB CRET 0.73-1.22 mg/dL Creatinine 0.91 LAB NA 136-144 mmol/L Sodium 142 LAB K 3.7-5.1 mmol/L Potassium 3.8 LAB CL 97-105 mmol/L Chloride 101 LAB CO2 22-30 mmol/L CO2 25 LAB AGAP 9-18 mmol/L Anion Gap 16 LAB ALT 10-54 U/L ALT 27 LAB GFRAA eGFR- Amer. >60 LAB GFRNAA . eGFR-All Other Races >60 Result Comment: eGFR (Estimated GFR) Units of measure: mL/min/1.73 meters squared eGFR is derived from the reexpressed MDRD Study equation using the following parameters: serum creatinine, age, gender and race. The creatinine assay has been calibrated to be traceable to IDMS. An eGFR <60 mL/min/1.73m2 for >3 months is consistent with chronic kidney disease. Refer to KDOQI guidelines for clinical interpretation. In patients with unstable renal function, e.g. those with acute kidney injury, the eGFR may not accurately reflect actual GFR. Performed By: #### CBCDIF, LIPB, CMP, HBA1C #### [facility] [address] [place], [place] [address] HEMOGLOBIN A1C Collected: 05/21/2018 Status: F Source: [place] 6:54 AM [facility] REPOSITORY TYPE CODE TESTS RESULT OUT OF REFERENCE UNITS RANGE LAB HGBA1C 4.3-5.6 % Hemoglobin A1c 5.6 Result Comment: [place] Diabetes Association guidelines indicate that patients with HgbA1c in the range 5.7-6.4% are at increased risk for development of diabetes, and intervention by lifestyle modification may be beneficial. HgbA1c greater or equal to 6.5% is considered diagnostic of diabetes. LAB HBA0 mg/dL Est. Average Glucose 114 Result Comment: eAG: (Estimated average glucose) is a calculated value from HgbA1c and is business representative of the average blood glucose level in the last 2-3 month period. Performed By: #### CBCDIF, LIPB, CMP, HBA1C #### [facility] [address] [place], [place] [address] MRI BRAIN WO IVCON Observed: 05/20/2018 Status: F Source: [place] 6:21 PM [facility] REPOSITORY * * *Final Report* * * DATE OF EXAM: May 20 2018 6:21PM QBM 0294 - MRI BRAIN WO SHAHID / PROCEDURE REASON: Headache and focal deficit or papilledema * * * * Physician Interpretation * * * * EXAMINATION: MRI BRAIN WO SHAHID CLINICAL HISTORY: Headache and focal neuro deficit TECHNIQUE: Routine noncontrast MRI protocol including diffusion images. MQ: [id number] COMPARISON: None. RESULT: Acute Change: There is no evidence of restricted diffusion to suggest an acute infarct. Hemorrhage: Focal susceptibility artifact in the posterior right lehman radiata suggests prior microhemorrhage. Mass Lesion/ Mass Effect: No evidence of an intracranial mass or extra-axial fluid collection. No significant mass effect. Chronic Change: Scattered punctate foci of increased T2 and FLAIR signal are noted in the supratentorial white matter which is a nonspecific finding, but likely represents minimal chronic microvascular ischemia. Parenchyma: No significant volume loss for age. The brain parenchyma is otherwise within normal limits of signal intensity and morphology. Ventricles: Normal caliber and morphology. Skull Base: Hypothalamic and pituitary region are grossly normal. Craniocervical junction is normal. No significant marrow replacement process. Vasculature: Major intracranial arterial structures, and dural venous sinuses show typical flow void, suggesting patency by spin echo criteria. Other: The visualized paranasal sinuses and mastoid air cells are clear. The orbits and extracranial soft tissues are unremarkable. IMPRESSION: No MRI evidence of acute intracranial pathology. Director Of Channel Marketing: ANGELLA Transcribe Date/Time: May 20 2018 6:21P Dictated by : KRYSTAL MORALES MD This examination was interpreted and the report reviewed and electronically signed by: EBONY PIZARRO MD on May 20 2018 6:47PM EST [id number] ALLIED HEALTH Observed: 05/20/2018 Status: COMPLETED Source: [place] 6:03 PM [facility] REPOSITORY HNO ID: [id number] Author: Sarah Vickers (Tech) Service: Radiology Author Type: Commissioned Sales Associate Type: Allied Health Filed: 05/20/2018 6:04 PM Note Text: Radiology Service Progress Note PATIENT NAME: Leidy Dc DATE OF SERVICE: May 20, 2018 TIME: 6:03 PM PATIENT IDENTITY VERIFICATION COMPLETED USING TWO (2) METHODS: Patient confirmed name verbally, ID Band and Date of . PATIENT GENDER DATA: Male PATIENT RELEVANT IMPLANT DATA REVIEWED: Yes Patient has GORE-TAG ENDOPROSTHESIS--3T, 720G/CM--5CM RULE-- implanted -5cm rule applied, patient brought into scanner on cart RADIOLOGY DEPARTMENT: MR; Exam(s) Completed: Head: Routine Brain PERIPHERAL IV DATA: Inpatient: see LDA documentation SIGNED BY: Sarah Vickers May 20, 2018 6:03 PM NUTRITION Observed: 05/20/2018 Status: COMPLETED Source: [place] 5:33 PM [facility] REPOSITORY HNO ID: [id number] Author: Viola Yeung Service: Nutrition Therapy Author Type: Registered Dietitian Type: Nutrition Filed: 05/20/2018 5:50 PM Note Text: NUTRITION THERAPY SCREENING NOTE SERVICE DATE: 05/20/2018 SERVICE TIME: 3:15 NUTRITION CARE PLAN Patient's weight is stable and nutritional intake is adequate. Patient is not at risk for malnutrition at this time. Intervention: 1. Adjust to 4 g Na+ electrolyte controlled diet 2. Trend lytes, replacement PRN per primary, K+ 3.2 upon admission 3. Intakes improving, hold off on supplementation in context of historical progressive weight gain Discharge Nutrition Recommendations: Diet: Low sodium, electrolyte controlled Per HPI: Pt is a 45 yo male with PMH significant for HLD (Atorvastatin 80mg QD), HTN (Losartan 100mg DQ, Clonidine 0.1mg TID, Metoprolol 100mg QD, Amlodipine 10mg QD), Marfan's (diagnosed 1999), ascending aortic dissection (status post valve sparing aortic root replacement with Niels's procedure; frozen elephant trunk procedure on 03/10/[address] Joe) who is transferred from [facility] complaining of headache, fatigue. PAST MEDICAL HISTORY Diagnosis Date - Aortic dissection, ascending 03/08/2011 - CAD (coronary artery disease) SVG to RCA - HTN (hypertension) 02/13/2016 - Hyperlipidemia 03/13/2011 - Marfan's syndrome 2010 2011: s/p Niels's procedures, ascending aorta AND arch repair w 28 mm Dacron graft, frozen elephant trunk procedure w direct placement of a 34 mm x 10 cm Exira-Tag thoracic stent graft - S/P mitral valve repair 2010 plication of the anterior leaflet and right axillary aortic cannulation with an 8 mm graft - Stroke (cerebrum) (HCC) 05/20/2018 Current Diet Order DIET REGULAR Nutritional Intake Prior to Admission: <75% estimated energy needs over the past few day(s), overall intake variance over past several months -Pt seen at bedside who endorses intake shift over past several months. At baseline, has excellent appetite, and admits to historical overeating. Lately intake has been more inconsistent. Pt occasionally (does not appear to be frequent) will go for a day with only eating 1-2 meals/day. Denies any noticeable weight loss and reports rather gain over past several years d/t decrease in mobility post aortic dissection in 2010. Does endorse drop in intake over past several days 2/2 headache but states this has since started to improve. States that in general, things have been more stressful lately. Endorses a disagreement with his neighbor and frustration with daughter's illness as well (also has Marfan's). Denies depression or anxiety. Endorses inconsistent blood pressure medication adherence and states that he takes things as needed. Endorses historical use of HTCZ which he states he stopped taking it 2/2 increase in urination. Denies any GI distress or swallowing deficits. Anthropometrics: Height: 193 cm (6' 4) Admission Weight: 108.9 kg (240 lb) Current Weight: 105.7 kg (233 lb) Body mass index is 28.36 kg/m?. overweight Weight has not changed significantly, overall progressive increase over past several years Last Wt 05/20/18 : 105.7 kg (233 lb) 10/01/17 : 105.9 kg (233 lb 6.4 oz) 08/04/17 : 107.5 kg (237 lb) 04/03/17 : 109.8 kg (242 lb) 11/27/16 : 104.3 kg (230 lb) 02/18/16 : 97.9 kg (215 lb 14.4 oz) 06/01/15 : 101.9 kg (224 lb 9.6 oz) 04/14/15 : 103.9 kg (229 lb) 04/12/15 : 102.5 kg (226 lb) 07/29/13 : 98 kg (216 lb 0.8 oz) 07/12/13 : 98.4 kg (217 lb) 04/15/13 : 99.8 kg (220 lb) 01/18/13 : 100.2 kg (221 lb) 12/30/12 : 97.5 kg (215 lb) 05/11/12 : 98 kg (216 lb) 08/01/11 : 89.9 kg (198 lb 4.8 oz) 05/13/11 : 84.8 kg (187 lb) 03/26/11 : 85.9 kg (189 lb 4.8 oz) 03/19/11 : 84.7 kg (186 lb 11.2 oz) Recent Labs 05/20/18 0505 GLUC 108* BUN 12 CREAT 0.90 NA 139 K 3.2* CHLOR 100 CO2 25 ALB 4.3 HB 13.6 HCT 39.0 WBC 5.61 MNT Billing Type: Initial Assess/15 min 2 units SIGNATURE: Viola Yeung RD PATIENT NAME: Leidy Dc DATE: May 20, 2018 TIME: 5:33 PM PAGER: [phone] CASE MGT INIT Observed: 05/20/2018 Status: COMPLETED Source: [facility] 3:13 PM [facility] REPOSITORY HNO ID: [id number] Author: Flores (Rn) RAFIQ Canas Service: Case Management Author Type: Registered Nurse Type: Care Mgt Initial Assessment Filed: 05/20/2018 3:19 PM Note Text: CARE MANAGEMENT: ASSESSMENT AND DISCHARGE PLAN SERVICE DATE: 05/20/2018 SERVICE TIME: 1400 PRIMARY CARE PHYSICIAN: Raymond Galvez MD ADMISSION STATUS: Inpatient Needs Prior to Discharge: To Be Determined;Procedure MEDICAL: Patient/Trauma Therapist Stated Goals: To improve my functional status To return home to life as it was Health Insurance: MEDICARE A AND B None Health Issues Impacting Discharge Plan: TBD Last Admission Date: Previous admit date: 02/13/2016 Is this Within the Past 30 days? No Advance Directive: Current Advance Directive: None Dye Tub Operator Attempted to Assist with AD Completion: Yes Action: Patient Unwilling Health Literacy: 1. How often do you need to have someone help you when you read instructions, pamphlets, or other written material from your doctor or pharmacy? Never - 1 2. How confident are you filling out medical forms by yourself? Extremely - 1 If Patient scores > 3 on either question, the following interventions were put into place: Patient did not score > 3 FUNCTIONAL AND COGNITIVE/BEHAVIORAL PRIOR TO ADMISSION: Baseline Mental Status: Alert AND Oriented, Person, Place , Time and Situation Functional Status: Independent Does Patient Currently Receive Any Community Services or Home Care? None Equipment Prior to Admission: None Has the Patient Been in a Half-Way Facility in the Past 30 days? No SOCIAL: Living Arrangement: Home Lives With: Spouse, Son and Daughter Financial Resources: Disabled Primary Contact: Extended Emergency Contact Information Primary Emergency Contact: VandaEarlene Address: [address] [place] [id number] Mobile Relation: Spouse Supportive: Yes Other Important Patient Contacts: None Caregiver Assessment: Caregiver is ready, willing and able to meet the patient's needs as recommended by the inter-professional team? Yes Patient's transition needs and plan for meeting these needs: TBD Does the patient have an acute stroke diagnosis, or has the patient had a stroke during this admission? Yes, Unable to assess at this time Medication Adherence: I am convinced of the importance of my prescription medication: Agree completely - 0 I worry that my prescription medication will do more harm than good to me Disagree completely - 0 I feel financially burdened by my [id number] expenses for my prescription medication: Disagree completely - 0 Patient is categorized as low risk < 2 Are you interested in bedside delivery of your medications? No Food Concerns: In the Last Month, Have You had Trouble Getting Food? No trouble getting food During the Last Month, Have You Worried Whether Your Food Would Run Out Before You Had Enough Money to Buy More? No Is the Patient Psychosocially Complex? No ASSESSMENT AND PLAN: Medical Needs: 2 or more chronic diseases Psychosocial Needs: None FREEDOM OF CHOICE EXPLAINED: N/A POTENTIAL TRANSITION PLANS To Be Determined Pt. discussed in huddle today. DC in approximately 24-48 hours. MRI and Echo today. PT/OT rec home, no PT/OT needs. TCC/SW will continue to follow. SIGNATURE: Flores Canas RN PATIENT NAME: Leidy Dc DATE: May 20, 2018 TIME: 3:13 PM PAGER/CONTACT #: [phone] PLAN OF CARE Observed: 05/20/2018 Status: COMPLETED Source: [place] 2:38 PM [facility] REPOSITORY HNO ID: [id number] Author: Laura Henao (Pharmacist) Service: Pharmacy Author Type: Pharmacist Type: Plan of Care Filed: 05/20/2018 2:57 PM Note Text: MEDICATION HISTORY AND MEDICATION RECONCILIATION Patient Name:Myrna Dc : 1970 Source of history:Patient: Reliability of source: Appears reliable, clearly identified: Medication name, Medication dose, Medication route, Medication frequency, Timing of last dose and Indications and Pharmacy records: [facility]/pharmacy #[id number] [place] [address] [address] [facility]. ?- [phone] [phone] Medication Nonadherence Identified: No barriers noted The above information represents the best possible medication history: Yes Reconciliation completed? Yes All CARD PAINTER medications addressed by LIP Additional comments: Medications ADDED to CARD PAINTER medication list ? None Changes made to CARD PAINTER medication list ? Clonidine sig - Patient takes differently: 1-2 tablets by mouth per week depending on blood pressure Medications REMOVED from CARD PAINTER medication list ? Flonase Additional Comments ? Pharmacy confirmed that the patient has filled his chronic medications recently. Allergies: ALLERGIES Allergen Reactions - Bactrim [Sulfametho* Hives - Ciprofloxacin Hives - Tramadol Rash Preferred Pharmacy: [facility]/pharmacy #[id number] [place] [address] [address] [facility]. ?- [phone] [phone] Current CARD PAINTER Medications: Prior to Admission medications as of 05/20/18 1442 Medication Sig Last Dose Taking RABEprazole (ACIPHEX) 20 mg tablet Take 20 mg by mouth once daily. 05/19/2018 at Unknown time Yes benzonatate (TESSALON PERLE) 100 mg capsule Take 2 capsules by mouth three times daily as needed for Cough. 05/19/2018 at Unknown time Yes albuterol HFA (VENTOLIN HFA) 90 mcg/actuation inhaler Inhale 2 Puffs as instructed every 4 hours as needed for Wheezing/Shortness of Breath. 05/19/2018 at Unknown time Yes losartan (COZAAR) 100 mg tablet Take 100 mg by mouth once daily. 05/19/2018 at Unknown time Yes cloNIDine HCl (CATAPRES) 0.1 mg tablet Take 0.1 mg by mouth three times daily. Patient takes differently: Takes 1-2 tablets by mouth per week depending on blood pressure 05/19/2018 at Unknown time Yes pregabalin (LYRICA) 150 mg capsule Take 150 mg by mouth twice daily. 05/19/2018 at Unknown time Yes atorvastatin (LIPITOR) 80 mg tablet Take 1 tablet by mouth daily at bedtime. 05/19/2018 at Unknown time Yes metoprolol succinate ER (TOPROL XL) 100 mg Tb24 Take 1 tablet by mouth once daily. 05/19/2018 at Unknown time Yes aspirin, enteric coated (ADULT LOW DOSE ASPIRIN) 81 mg ORAL EC tablet Take 1 tablet by mouth once daily. 05/19/2018 at Unknown time Yes Brock Jordan (Key Punch Operator) May 20, 2018 2:38 PM I agree with the above note as written by the student pharmacist. Laura Henao, PharmD [phone] 05/20/2018 2:57 PM THERAPY NT Observed: 05/20/2018 Status: COMPLETED Source: [place] 11:45 AM [facility] REPOSITORY HNO ID: [id number] Author: Keely Zhang/Starr Colon Service: Occupational Therapy Author Type: Occupational Therapist Type: Therapy (PT/OT/Speech/Resp) Filed: 05/20/2018 11:46 AM Note Text: OCCUPATIONAL THERAPY MISSED VISIT SERVICE DATE: 05/20/2018 SERVICE TIME: 1139 to 1139 ROOM: [place] [address] Consult received. Pt declines OT services at this time stating independence and no needs. Pt educated in role of OT. Pt stated he had received OT in past and continued to decline. Will sign off. Reconsult as needed SIGNATURE: ERVIN Canela PATIENT NAME: Leidy Dc DATE: May 20, 2018 TIME: 11:45 AM THERAPY NT Observed: 05/20/2018 Status: COMPLETED Source: [place] 9:56 AM [facility] REPOSITORY HNO ID: [id number] Author: Shila CornejoPtDonald Avila Service: Physical Therapy Author Type: Physical Therapist Type: Therapy (PT/OT/Speech/Resp) Filed: 05/20/2018 9:59 AM Note Text: Physical Therapy Evaluation SERVICE DATE: 05/20/2018 SERVICE TIME: 0925 to 0950 ROOM: [place] [address] Recommended Discharge Disposition: Home Recommended Discharge Disposition Comments: No PT needs identified Recommended Discharge Equipment: No equipment needs anticipated PT Recommendations to Nursing: Ambulate without device;In halls Device: No Device PT 6 Clicks Score: 24 ASSESSMENT : Patient presents with CALLE and LLE sensory disturbances, 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 Pt able to demonstrate safety with all aspects of functional mobility, no PT needs identified. Mild L hip weakness detected during ambulatoin, though pt reports is baseline level since 2010 AAA repair. DC from PT d/t lack of needs. Patient Disposition at Start of Session: Supine in Bed Patient Disposition at End of Session: Supine in Bed Tolerated Full Session Patient /Caregiver Goals: Go Home Goals for Plan of Care: Rehab Potential: Excellent PLAN: Treatment Frequency (times per week): Discontinue Therapy Services Reasons Therapy Services Discontinued: Independent in all functional mobility Current admission Treatment Interventions: Education;Strengthening;Functional Mobility Training;Balance Training;Neuromuscular Re-education Plan of Care developed with: Patient TREATMENT INTERVENTIONS: Therapy Diagnosis: Reduced mobility-other Interventions Provided: Evaluation;Neuromuscular Reeducation (14676) $ Evaluation-Moderate (96909) Billed Units: 1 unit Neuromuscular Re-Education (30525) Treatment Minutes: 10 1 unit Skilled Intervention(s): Balance training including cues for stand with eyes closed, walk backwards, turn 360 degeres, tandem stance, tandem ambulation, step over objects, high marching, SLS all without LOB Total Timed Code Treatment Minutes: 10 Total Treatment Time (minutes): 25 FUNCTIONAL G CODE: PT 6 Clicks Score: 24 (05/20/18 4600) Based on clinical assessment and the score on the 6 Clicks Functional Assessment Tool, the G code and corresponding severity modifiers are documented above. SUBJECTIVE: Current Hospital Course: Chart reviewed; 47 yo male admitted with CALLE and LLE sensory disturbance, found to have R vertebral artery occulsion. Reason for Physical Therapy Consult : Safety assessment Relevant Past Medical History: HTN, HLD, Marfans, aortic dissection Patient Report: I am hoping to go home soon Home Environment Patient Lives With: Family Assistance Available: 24 Hour Entry To Home: Stairs Number Of Stairs Into Home: 3 Number Of Stairs To Bed/Bath: 12 Prior Functional Level: Within Functional Limits Prior Functional Level Comments: Pt reports sedentary lifestyle since AAA repair OBJECTIVE: CURRENT FUNCTIONAL STATUS: Current Functional Mobility Assist Level Additional Information Rolling Supine to Sit Independent Sit to Supine Independent Scooting Sit to Stand Independent Stand to Sit Independent Bed to Chair Toilet/Commode Gait Stand By Assistance Gait Device: None Gait Distance (feet): 350 Stairs Curb Step Car Transfer Gait Deviations Left Lower Extremity: Trendelenburg Balance: Static Sitting;Dynamic Sitting;Static Standing;Dynamic Standing Static Sitting Balance: Independent Dynamic Sitting Balance: Independent Static Standing Balance: Independent Dynamic Standing Balance: Stand By Assistance JH-HLM: 8: Walk 250 feet or more Please see discipline specific clinical documentation flowsheet for complete details for this therapy evaluation/treatment. SIGNATURE: Shila Avila PT PATIENT NAME: Leidy Dc DATE: May 20, 2018 TIME: 9:57 AM ECG COMPLETE W Observed: 05/20/2018 Status: C Source: [place] INTERPRETATION 8:01 AM [facility] REPOSITORY NAME : LEIDY DC PID : [id number] : 1970 Gender : Male Race : ORD : [id number] Procedure Date : May 20 2018 08:01:57 Edit Date : May 21 2018 07:50:38 Diagnosis:NORMAL SINUS RHYTHM WITH 1ST DEGREE AV BLOCK LEFT VENTRICULAR HYPERTROPHY WITH QRS WIDENING AND REPOLARIZATION ABNORMALITY ABNORMAL ECG Reconfirmed by MD ANGELICA, PhD, LEE ([id number]) on 05/21/2018 7:50:32 AM Ventricular Rate : 64 BPM Atrial Rate : 64 BPM P-R Interval : 204 ms QRS Duration : 118 ms Q-T Interval : 434 ms QTC Calculation(Bezet) : 447 ms P Earleton : 17 degrees R Earleton : 1 degrees T Earleton : 108 degrees Test Reason : Location : 63 : 0 40 Overread By : MD ANGELICA, PhD,LEE Edited By : MD ANGELICA, PhD,LEE Referred By : , Acquired by : ERNST VOGT NURSING PROG Observed: 05/20/2018 Status: COMPLETED Source: [place] 7:37 AM [facility] REPOSITORY HNO ID: [id number] Author: Marshall CornejoRn) RAFIQ Collier Service: Nursing Author Type: Registered Nurse Type: Nursing Progress Note Filed: 05/20/2018 7:37 AM Note Text: Admission/Transfer Note PATIENT NAME: Leidy Dc Patient admitted from ED via cart in stable condition. Actions taken: Patient oriented to room, call light function, prescribed activities, Patient rights and Quiet at night. This note was completed by: Marshall Collier RN HISTORY PHYSICAL Observed: 05/20/2018 Status: COMPLETED Source: [place] 5:56 AM [facility] REPOSITORY O ID: [id number] Author: Iananders Marx Service: Neurology Stroke Author Type: Physician Type: HANDP Filed: 05/20/2018 2:41 PM Note Text: HANDP NEURO STROKE SERVICE DATE: 05/20/2018 SERVICE TIME: 0530 PCP: Raymond Galvez MD REASON FOR STROKE EVALUATION: Headache Subjective HPI: Pt is a 45 yo male with PMH significant for HLD (Atorvastatin 80mg QD), HTN (Losartan 100mg DQ, Clonidine 0.1mg TID, Metoprolol 100mg QD, Amlodipine 10mg QD), Marfan's (diagnosed 1999), ascending aortic dissection (status post valve sparing aortic root replacement with Niels's procedure; frozen elephant trunk procedure on 03/10/[address] Joe) who is transferred from [facility] complaining of headache, fatigue. LWK 05/16 time unknown. Pt states he has been having intermittent headaches and neckache. Pt regularly checks his BP, which he states has been consistently >200. This continued, until 05/20 when he developed LUE and LLE weakness; pt states he has had intermittent left sided weakness since his frozen elephant trunk procedure. Presented to OSH 05/20. iNIHSS 1 (LLE drift). SBP >200. CTH showing NAP. CTA Head showed occluded right vertebral artery. EKG c/f left ventricular strain due to HTN v active ischemia, troponin negative. Received ASA 162mg. Transferred to [facility] for further management. On arrival, BP 218/118, HR 66. iNIHSS 1 (fluctuating LLE sensory loss). Pt reports current headache all over of 6/10, neck pain. Reports chronic back ache. Denies visual changes. Denies syncope, N/T. Denies change in speech or facial droop. Pre-admission Was patient on antithrombotic agent prior to admission: Antiplatelet Antiplatelet: Aspirin Was patient on lipid lowering agent prior to admission: Statin Pre-morbid mRS: Premorbid Modified Ramsey Score: 0 - No symptoms at all PAST MEDICAL HISTORY Diagnosis Date - Aortic dissection, ascending 03/08/2011 - CAD (coronary artery disease) SVG to RCA - HTN (hypertension) 02/13/2016 - Hyperlipidemia 03/13/2011 - Marfan's syndrome 2010 2011: s/p Niels's procedures, ascending aorta AND arch repair w 28 mm Dacron graft, frozen elephant trunk procedure w direct placement of a 34 mm x 10 cm Exira-Tag thoracic stent graft - S/P mitral valve repair 2010 plication of the anterior leaflet and right axillary aortic cannulation with an 8 mm graft PAST SURGICAL HISTORY Procedure Laterality Date - ASCENDING AORTIC GRAFT 03/08/2011 Emergent. Valve sparing aortic root replacement . Aortic valve (Niels's procedure) with 32-mm Valsalva Dacron graft, reconstruction of the RCA, CABGx1 (SVG-RCA), ascending aorta and arch repair with 28- mm Dacron graft, frozen elephant trunk procedure 34 mm x 10 ccm Exira-Tag thoracic stent graft, mitral valve repair with with plication of the anterior leaflet and right axillary aortic cannulation - PAST SURGICAL HISTORY OF right hand surgery after saw injury (lost index finger) - PAST SURGICAL HISTORY OF toe surgery after injury; also hammer toe surgery - PAST SURGICAL HISTORY OF CABGx1 - TONSILLECTOMY HX Social History Marital status: Spouse name: Years of education: Number of children: Social History Main Topics Smoking status: Never Smoker Smokeless tobacco: Never Used Alcohol use: No Drug use: No Other Topics Concern Exercise No FAMILY HISTORY Problem Relation Age of Onset - other (Marfan's syndrome) Child 2 children with Marfans' - Heart Paternal Uncle had heart failure at age 48 - Ischemic Heart Disease Paternal Grandfather age 60s, [place] - Ischemic Heart Disease Maternal Grandfather age 80s,. strokes, MIs - Hypertension Father ALLERGIES Allergen Reactions - Bactrim [Sulfametho* Hives - Ciprofloxacin Hives - Tramadol Rash MEDICATION Pre-admission (Not in a hospital admission) Current fluticasone (FLONASE) 50 mcg/actuation nasal spray Use 2 Sprays in each nostril once daily. Rinse mouth after use. RABEprazole (ACIPHEX) 20 mg tablet Take 20 mg by mouth once daily. benzonatate (TESSALON PERLE) 100 mg capsule Take 2 capsules by mouth three times daily as needed for Cough. albuterol HFA (VENTOLIN HFA) 90 mcg/actuation inhaler Inhale 2 Puffs as instructed every 4 hours as needed for Wheezing/Shortness of Breath. losartan (COZAAR) 100 mg tablet Take 100 mg by mouth once daily. cloNIDine HCl (CATAPRES) 0.1 mg tablet Take 0.1 mg by mouth three times daily. pregabalin (LYRICA) 150 mg capsule Take 150 mg by mouth twice daily. ALBUTEROL INHALATION Inhale as instructed as needed. atorvastatin (LIPITOR) 80 mg tablet Take 1 tablet by mouth daily at bedtime. metoprolol succinate ER (TOPROL XL) 100 mg Tb24 Take 1 tablet by mouth once daily. aspirin, enteric coated (ADULT LOW DOSE ASPIRIN) 81 mg ORAL EC tablet Take 1 tablet by mouth once daily. REVIEW OF SYSTEMS The following systems were reviewed with the patient, and are unremarkable other than as described below. SYSTEMIC: No fever, chills, or change in weight or appetite HEENT: No recent change in vision or hearing. GI: No recent nausea, vomiting or diarrhea. : No recent hematuria or dysuria. SKIN: No recent itching or eruption. PSYCH: No recent active anxiety or depression. HEMATOLOGY/ONCOLOGY: No recent diagnosis of bleeding or cancer. ENDOCRINE: No recent diagnosis of DM or thyroid disease. RHEUMATOLOGY: No recent active connective tissue disease. Objective PHYSICAL EXAM Vital Signs: BP 175/95 Pulse 69 Temp 36.5 ?C (97.7 ?F) (Oral) Resp 16 Ht 193 cm (6' 4) Wt 105.7 kg (233 lb) SpO2 (!) 94% BMI 28.36 kg/m? GENERAL: Awake/easily arousable. HEENT: Normocephalic/atraumatic RESPIRATORY: Normal respiratory effort. Clear to auscultation without rhonchi, rales, wheezing. CARDIOVASCULAR: RRR, normal S1, S2 auscultated, no murmur present. No lower extremity edema. GI: No hernia, masses, hepatosplenomegaly or lymphadenopathy. EXTREMITIES: No cyanosis, clubbing or edema. SKIN: Skin color, texture, turgor normal. No rashes or lesions. MUSCULOSKELETAL Muscular strength intact. No joint swelling or tenderness. NEUROLOGICAL: LOC: 0 - alert and responsive 0 LOC Questions: 0 - both correct 0 LOC Commands: 0 - both correct 0 LOC Normal Gaze: 0 - normal gaze 0 Visual Waters: 0 - no visual loss 0 Facial Palsy: 0 - normal 0 Motor Left Arm: 0 - no drift 0 Motor Right Arm: 0 - no drift 0 Motor Left Le - no drift 0 Motor Right Le - no drift 0 Limb Ataxia: 0 - no ataxia (or aphasic, hemiplegic) 0 Sensory: 1 - mild to moderate unilateral loss but patient aware of touch (or aphasic, confused) (Fluctuating, 75% LLE) 1 (Fluctuating, 75% LLE) Language: 0 - normal 0 Dysarthria: 0 - normal 0 Extinction/Neglect: 0 - normal, none detected (or visual loss alone) 0 Initial NIHSS: 1 (05/20/18 0634 : Latisha Melendez) 1 MENTAL STATUS: Alert, oriented to person, place and time and Follows commands CRANIAL NERVES: PERRLA, EOM's intact, Visual waters intact to confrontation, Extraocular movements intact, Facial sensation intact, Face symmetric, No facial droop or ptosis, Hearing intact to finger rub bilaterally, No dysarthria, Palate elevates symmetrically, Tongue protrudes midline and Shoulder shrug intact and symmetric MOTOR: No drift, Normal tone and Normal bulk MOTOR STRENGTH: Upper and lower extremity 5/5 bilaterally REFLEXES: UE and LE reflexes are equal and reactive SENSATION: Diminished light touch in LLE (75%), fluctuating COORDINATION: Finger-to- nose-finger intact bilaterally GAIT: Not assessed DATA: Diagnostic tests reviewed for today's visit: Most recent labs and imaging results. STROKE CARE PATH [facility] Date Patient Last Known Well: 05/19/18 Date of Patient Arrival at THIS Facility: 05/20/18 Time of Patient Arrival at THIS Facility: 0436 [place] Coma Scale Totals (Calculated): 15 [address] Imaging Review: CT Imaging reviewed, NO acute infarct/hemorrhage seen CTA Imaging Review: CTA Imaging reviewed, POSITIVE large vessel occlusion or severe stenosis seen Abnormal CTA Finding Details (Specify): R V2 occlusion v dissection Candidate for Endovascular Therapy (Last Known Well within 24 hours): Uncertain - NIHSS less than 6, further imaging needed STROKE 9 CARE AND PREVENTION CHECKLIST 1. Is the patient currently on an ANTITHROMBOTIC medication (Antiplatelet or Anticoagulant): Aspirin 2. Does the patient have known AFIB/FLUTTER: No 3. Is the patient on a STATIN: Atorvastatin 80 mg 4. Is the patient on VTE prophylaxis: Pharmacological prophylaxis;Mechanical prophylaxis Pharmacological intervention type: Lovenox Mechanical intervention type: Intermittent compression stocking(s) 5. GLYCEMIC Control Medications: Not Diabetic 6. Stroke BP Goals: <180/105 Stroke BP Control: BP needs further management 7. Stroke IVF/Nutrition: NPO except med 8. TEMPERATURE Control: Normothermic 9. Does the patient need THERAPY: No Reason for no therapy orders: Patient is medically unstable, no therapy at this time Stroke Care and Prevention (personally reviewed by Latisha Melendez DO): Daily Rounding Date: 05/20/18 Daily Rounding Time: 0638 PROBLEM LIST: Active Problems: * No active hospital problems. * Resolved Problems: * No resolved hospital problems. * Assessment/Plan Pt is a 45 yo male with PMH significant for HLD (Atorvastatin 80mg QD), HTN (Losartan 100mg DQ, Clonidine 0.1mg TID, Metoprolol 100mg QD, Amlodipine 10mg QD), Marfan's (diagnosed 1999), ascending aortic dissection (status post valve sparing aortic root replacement with Niels's procedure; frozen elephant trunk procedure on 03/10/[address] Joe) who is transferred from [facility] complaining of headache, fatigue. LWK 05/16 time unknown. Presented to OSH 05/20. iNIHSS 1 (LLE drift). SBP >200. CTH showing NAP. CTA Head showed occluded right vertebral artery, normal left vertebral. Transferred to [facility] for further management. On arrival, BP 218/118, HR 66. iNIHSS 1 (fluctuating LLE sensory loss). Pt reports current headache all over of 6/10, neck pain. Reports chronic back ache. Denies visual changes. Denies syncope, N/T. Denies change in speech or facial droop. ? Risk Factors Dyslipidemia Hypertension Obesity S/P Frozen Elephant Trunk Procedure Stroke Mechanism PLAN [Neuro] - Admit to H[facility] - Neurochecks: Q2hr for 24hr then Q4hr - MRI brain WO - Continue home aspirin 81mg and atorvastatin 80mg - Labs: lipid panel, HgbA1C [CV] - Telemetry, EKG - Echo: TTE - SBP Parameters: <180 - meds: Labetalol, Hydralazine PRN; continue home anti-HTN - Consider CTA Chest if not proceeding with Angio to assess aortic arch [Pulm] - NC to keep sats >92, d/c if tolerated - CXR [GI/Nutrition] - NPO pending swallow - zofran, colace PRN [Renal/Electrolytes/] - Admission labs - CBC, CMP, PT/PTT/coags, UA - I/O strict - BUN/Cr daily - replete electrolytes as needed [ID] - no active issues, cultures if temp >38.5 [Heme] - H/H, PLT, PT/INR, PTT daily - DVT ppx: Lovenox subQ [Endo] - HgbA1C pending - Accuchecks AC/HS [Dispo] - PT/OT - OOB with assistance Imaging Ordered Today: MRI Brain ordered for focal neuro deficit. SIGNATURE: Latisha Melendez DO PATIENT NAME: Leidy Dc DATE: May 20, 2018 TIME: 5:57 AM PAGER/CONTACT #: [phone] SENIOR RESIDENT ADDENDUM: I evaluated the patient and personally participated in the castillo components including a complete neurological examination. I agree with the mal resident's findings and excellent plan as documented above including the examination and have discussed the management of the patient's care with Dr. Melendez. The above note reflects my input. Briefly, 47yo M w/hx of HTN, Marfan's c/b aortic dissection s/p FET 2010, residual back pain, intermittent L sided weakness when BP elevated p/w CALLE and neck pain since 05/16 a/w SBP >200s (not atypical for him), worsened 05/19 w/subjective LUE/LLE weakness and CP. CTA showed ? R V2 dissection v occlusion, xferred for angio. NIH 1 for intermittent LLE sensory decrease. A/P: R vert dissection v occlusion -admit to stroke neurology -neuro checks q4hrs -SBP <180 -MRI brain wo contrast -EKG, tele -ASA 81mg, lipitor 80mg -dvt ppx: lovenox sq, SCD thigh high -NPO for angio -Percocet for pain SIGNATURE: Keturah Carbajal MD PATIENT NAME: Leidy Dc DATE: May 20, 2018 TIME: 6:46 AM PAGER/CONTACT #: [phone] [facility] STAFF PHYSICIAN NOTE OF PERSONAL INVOLVEMENT IN CARE I have reviewed the history and physical examination obtained and documented by the resident and I personally participated in the castillo components. I have discussed the case and management of the patient's care. The following comments revise or confirm relevant castillo components of the note. We met with the patient, available family, nursing, and unit care team at the bedside. We discussed the ongoing evaluation and management of the patient in a collaborative fashion. We educated the patient and family on stroke risk factors, and continued evaluation and management of their medical problems. All questions were answered. Brief Assessment: 45yo RH man with PMHx significant for Marfan's, AAA s/p repair 2010, HTN, HLD who was transferred from [facility] for concern of stroke and CTA showing R V2 dissection. Pt c/o generalized pain, weakness, but also told ED he had some L sided n/t/weakness (which he tells us today he has had since his AAA repair 2010), so CTA completed, as above, and transferred for further management. Of note, he has refractory HTN and BP here was 218/118. No other focal symptoms. Exam reveals marfanoid features, missing distal R index finger, and subjective decreased sensation L hemibody (again, reports baseline since AAA). *R V2 dissection - likely spontaneous given known Marfans - no other compelling evidence for stroke at this time though small medullary lesion cannot be excluded Plan: --MRI brain --I do not think angio will policy change clerk, so hold off --ASA 81 + statin; can decide on APT choice after MRI completed --BP control imperative --Remainder as detailed by resident note Lima Marx MD Staff, Vascular Neurology May 20, 2018 2:36 PM EKG1 Observed: 05/20/2018 Status: F Source: [place] 5:14 AM [facility] REPOSITORY NAME : LEIDY DC PID : [id number] : 1970 Gender : Male Race : ORD : Procedure Date : May 20 2018 05:14:05 Edit Date : May 20 2018 08:42:20 Diagnosis:NORMAL SINUS RHYTHM POSSIBLE LEFT ATRIAL ENLARGEMENT LEFT VENTRICULAR HYPERTROPHY WITH QRS WIDENING AND REPOLARIZATION ABNORMALITY INFERIOR MYOCARDIAL INFARCTION , AGE UNDETERMINED ABNORMAL ECG NOTE: PLEASE SEE PHYSICIAN'S NOTE FROM E.D. VISIT Confirmed by MD NAYLA, LAUREN ([id number]), film editor supervisor ENOC SALEEM ([id number]) on 05/20/2018 8:42:19 AM Ventricular Rate : 69 BPM Atrial Rate : 69 BPM P-R Interval : 202 ms QRS Duration : 126 ms Q-T Interval : 420 ms QTC Calculation(Bezet) : 450 ms P Earleton : 13 degrees R Earleton : -1 degrees T Earleton : 123 degrees Test Reason : Location : 2 : [facility] [id number] Overread By : MD NAYLA,[facility] Edited By : ENOC SALEEM Referred By : , Acquired by : , CBC Collected: 05/20/2018 Status: F Source: [place] 5:05 AM [facility] REPOSITORY TYPE CODE TESTS RESULT OUT OF REFERENCE UNITS RANGE LAB WBC 3.70-11.00 k/uL WBC 5.61 LAB RBC 4.20-6.00 m/uL RBC 4.62 LAB HGB 13.0-17.0 g/dL Hemoglobin 13.6 LAB HCT 39.0-51.0 % Hematocrit 39.0 LAB MCV 80.0-100.0 fL MCV 84.4 LAB MCH 26.0-34.0 pG MCH 29.4 LAB MCHC 30.5-36.0 g/dL MCHC 34.9 LAB RDWCV 11.5-15.0 % RDW-CV 13.2 LAB PLTCT 150-400 k/uL Platelet Count 269 LAB MPV 9.0-12.7 fL MPV 9.4 LAB ABSNUC <0.01 k/uL Absolute nRBC <0.01 Performed By: #### CBC, BMP, HFP, TERESA, PT, PTT #### [facility] [address] [place], [place] [address] BASIC METABOLIC PANL Collected: 05/20/2018 Status: F Source: [place] 5:05 [facility] REPOSITORY TYPE CODE TESTS RESULT OUT OF REFERENCE UNITS RANGE LAB GLU 74-99 mg/dL High Glucose 108 Result Comment: The [place] Diabetes [employer] (ADA) provides guidance for cutoff values for fasting glucose and random glucose. The ADA defines fasting as no caloric intake for at least 8 hours. Fas ting plasma glucose results between 100 to 125 mg/dL indicate increased risk for diabetes (prediabetes). Fasting plasma glucose results greater than or equal to 126 mg/dL meet the criteria for diagnosis of diabetes. In the absence of unequivocal hyperglycemia, results should be confirmed by repeat testing. In a patient with classic symptoms of hyperglycemia or hyperglycemic crisis, random plasma glucose results greater than or equal to 200 mg/dL meet the criteria for diagnosis of diabetes. Reference: Standards of Medical Care in Diabetes 2016, [place] [employer]. Diabetes Care. 2016.39(Suppl 1). LAB BUN 9-24 mg/dL BUN 12 LAB CRET 0.73-1.22 mg/dL Creatinine 0.90 LAB NA 136-144 mmol/L Sodium 139 LAB K 3.7-5.1 mmol/L Potassium Low 3.2 LAB CL 97-105 mmol/L Chloride 100 LAB CO2 22-30 mmol/L CO2 25 LAB AGAP 9-18 mmol/L Anion Gap 14 LAB CA 8.5-10.2 mg/dL Calcium, Total 9.2 LAB GFRAA eGFR- Amer. >60 LAB GFRNAA . eGFR-All Other Races >60 Result Comment: eGFR (Estimated GFR) Units of measure: mL/min/1.73 meters squared eGFR is derived from the reexpressed MDRD Study equation using the following parameters: serum creatinine, age, gender and race. The creatinine assay has been calibrated to be traceable to IDMS. An eGFR <60 mL/min/1.73m2 for >3 months is consistent with chronic kidney disease. Refer to KDOQI guidelines for clinical interpretation. In patients with unstable renal function, e.g. those with acute kidney injury, the eGFR may not accurately reflect actual GFR. Performed By: #### CBC, BMP, HFP, TERESA, PT, PTT #### [facility] [address] [place], [place] [address] HEPATIC FUNCTN PANEL Collected: 05/20/2018 Status: F Source: [place] 5:05 AM [facility] REPOSITORY TYPE CODE TESTS RESULT OUT OF REFERENCE UNITS RANGE LAB ALB 3.9-4.9 g/dL Albumin 4.3 LAB TBIL 0.2-1.3 mg/dL Bilirubin, Total 0.4 LAB CBIL <0.2 mg/dL Bilirubin,Conjuga <0.2 kindra LAB ALKP 38-113 U/L Alkaline Phosphatase 84 LAB AST 14-40 U/L AST 22 LAB ALT 10-54 U/L ALT 30 LAB TP 6.3-8.0 g/dL Protein, Total 6.9 Performed By: #### CBC, BMP, HFP, TERESA, PT, PTT #### [facility] [address] [place], [place] [address] TROPONIN T Collected: 05/20/2018 Status: F Source: [place] 5:05 AM [facility] REPOSITORY TYPE CODE TESTS RESULT OUT OF REFERENCE UNITS RANGE LAB TROPT 0.000-0.029 ng/mL Troponin T <0.010 Performed By: #### CBC, BMP, HFP, TERESA, PT, PTT #### [facility] [address] [place], [place] [address] PROTIME Collected: 05/20/2018 Status: F Source: [place] 5:05 AM [facility] REPOSITORY TYPE CODE TESTS RESULT OUT OF RANGE REFERENCE UNITS LAB PSEC 9.7-13.0 sec PT Sec 10.9 LAB INR 0.9-1.3 PT INR 1.0 Result Comment: Vitamin K Antagonist (VKA) Therapeutic Range: INR 2 to 3 (Target INR of 2.5) Note: For patients treated with VKA drugs, such as warfarin, the [place] [employer] 2012 Guideline recommends a therapeutic INR range of 2 to 3 (target INR of 2.5). This recommendation includes high-risk patients with antiphospholipid syndrome with previous arterial or venous thromboembolism, current-generation mechanical or bioprosthetic aortic heart valve replacement. Note: Patients with mechanical aortic valve replacement and additional risk factors for thromboembolic events (atrial fibrillation, previous thromboembolism, LV dysfunction, hypercoagulable conditions) or an older generation mechanical AVR (i.e., ball in-Cage) or any mechanical MVR should have a INR therapeutic range of 2.5 to 3.5 (target INR of 3). Mitchell GH, et al. Chest 2012, 141:7S-47S Danielle RA, et al. [facility] 2017, 70: 252-289 Performed By: #### CBC, BMP, HFP, TERESA, PT, PTT #### [facility] [address] [place], [place] [address] APTT Collected: 05/20/2018 Status: F Source: [place] 5:05 [facility] REPOSITORY TYPE CODE TESTS RESULT OUT OF RANGE REFERENCE UNITS LAB APTT 23.0-32.4 sec APTT 28.5 Result Comment: Unfractionated Heparin Therapeutic Ranges: Standard Heparin Nomogram: 53 to 78 seconds (anti-Xa level of 0.3 to 0.7 U/ml) Low Dose/ACS Nomogram: 49 to 67 seconds (anti-Xa level of 0.2 to 0.5 U/ml) Stroke Treatment Nomogram: 49 to 67 seconds (anti-Xa level of 0.2 to 0.5 U/ml) Note: The APTT therapeutic range has been determined for the current lot of laboratory APTT reagent in use throughout the [facility]. Performed By: #### CBC, BMP, HFP, TERESA, PT, PTT #### [facility] [address] [place], [place] [address] ED PROV NOTE Observed: 05/20/2018 Status: COMPLETED Source: [place] 4:37 AM [facility] REPOSITORY HNO ID: [id number] Author: Israel Cagle MD Service: Emergency Medicine Author Type: Resident Type: ED Provider Notes Filed: 05/20/2018 6:05 AM Note Text: Attestation signed by Lauren Bassett at 05/21/2018 8:19 AM Attending Note I evaluated the patient and personally participated in the castillo components. I agree with the resident's findings and plan as documented and have discussed the case and management of the patient's care with the resident. Pt transferred from OSH for [facility] neurology evaluation and management. No acute changes on exam and pt resting in no distress. Labetalol administered for elevated BP with improvement. Neurology in ED to evaluate pt. Will admit for further management. Per health care consultant, pt does not require ICU level care at this time. EKG Interpretation: RHYTHM: Normal sinus rhythm at 69 beats per minute AXIS: Normal axis INTERVALS: Normal NE interval QRS COMPLEX: Normal ST SEGMENT: Normal ST-T segments QT INTERVAL: Normal COMPARED WITH PRIOR: unchanged Signature: Lauren Bassett MD Date: 05/21/2018 Time: 8:18 AM ED Provider Note Patient Name: Leidy Dc SERVICE DATE: 05/20/18 History No chief complaint on file. HPI This is 47M w/ hx of Marfan's c/b aortic dissection s/p stenting and MVR who is being transferred from [place] for occluded R vert w/ possible dissection. Patient had presented at OSH for CALLE. Had been having CALLE for past 2 days that acutely worsened shortly prior to presenting to OSH. Had blurry vision but no diplopia. No syncope. He did have bilateral neck pain. Has left sided weakness at baseline but thinks it may have worsened. Patient was also complaining of CP at [place]. No STEMI on EKG and trop neg per chart review. He was given 162 mg ASA and nitroglycerin. He was HTN to 200s there which was controlled with labetalol. Currently not having CP but states it gets worse when his BP goes up. He still has the CALLE and persistent back pain which is not new. Head CTA 05/19/18 19:59 IMPRESSION: Occluded right vertebral artery. Nonvisualization of posterior communicating arteries Neck CTA 05/19/18 19:59 IMPRESSION: Possible dissection of the right vertebral artery. PAST MEDICAL HISTORY Diagnosis Date - Aortic dissection, ascending 03/08/2011 - CAD (coronary artery disease) SVG to RCA - HTN (hypertension) 02/13/2016 - Hyperlipidemia 03/13/2011 - Marfan's syndrome 2010 2011: s/p Niels's procedures, ascending aorta AND arch repair w 28 mm Dacron graft, frozen elephant trunk procedure w direct placement of a 34 mm x 10 cm Exira-Tag thoracic stent graft - S/P mitral valve repair 2010 plication of the anterior leaflet and right axillary aortic cannulation with an 8 mm graft PAST SURGICAL HISTORY Procedure Laterality Date - ASCENDING AORTIC GRAFT 03/08/2011 Emergent. Valve sparing aortic root replacement . Aortic valve (Niels's procedure) with 32-mm Valsalva Dacron graft, reconstruction of the RCA, CABGx1 (SVG-RCA), ascending aorta and arch repair with 28- mm Dacron graft, frozen elephant trunk procedure 34 mm x 10 ccm Exira-Tag thoracic stent graft, mitral valve repair with with plication of the anterior leaflet and right axillary aortic cannulation - PAST SURGICAL HISTORY OF right hand surgery after saw injury (lost index finger) - PAST SURGICAL HISTORY OF toe surgery after injury; also hammer toe surgery - PAST SURGICAL HISTORY OF CABGx1 - TONSILLECTOMY HX FAMILY HISTORY Problem Relation Age of Onset - other (Marfan's syndrome) Child 2 children with Marfans' - Heart Paternal Uncle had heart failure at age 48 - Ischemic Heart Disease Paternal Grandfather age 60s, [place] - Ischemic Heart Disease Maternal Grandfather age 80s,. strokes, MIs - Hypertension Father Social History Social History Main Topics - Smoking status: Never Smoker - Smokeless tobacco: Never Used - Alcohol use No - Drug use: No - Sexual activity: Not on file ALLERGIES Allergen Reactions - Bactrim [Sulfametho* Hives - Ciprofloxacin Hives - Tramadol Rash Review of Systems Constitutional: Negative for chills and fever. HENT: Negative for trouble swallowing. Eyes: Positive for visual disturbance. Respiratory: Negative for shortness of breath. Cardiovascular: Positive for chest pain. Negative for leg swelling. Gastrointestinal: Negative for abdominal pain, diarrhea, nausea and vomiting. Genitourinary: Negative for difficulty urinating, dysuria and flank pain. Musculoskeletal: Positive for neck pain. Negative for back pain. Skin: Negative for rash. Neurological: Positive for weakness and headaches. Negative for syncope and light-headedness. Psychiatric/Behavioral: The patient is not nervous/anxious. Physical Exam There were no vitals taken for this visit. Physical Exam Constitutional: He is oriented to person, place, and time. He appears well-developed and well-nourished. No distress. HENT: Head: Normocephalic and atraumatic. Mouth/Throat: Oropharynx is clear and moist. Eyes: Pupils are equal, round, and reactive to light. EOM are normal. No scleral icterus. Neck: Normal range of motion. Neck supple. No meningismus Cardiovascular: Normal rate, regular rhythm, normal heart sounds and intact distal pulses. Exam reveals no gallop and no friction rub. No murmur heard. Pulmonary/Chest: Effort normal and breath sounds normal. Abdominal: Soft. He exhibits no distension. There is no tenderness. Genitourinary: Genitourinary Comments: Deferred Musculoskeletal: Normal range of motion. He exhibits no edema or tenderness. Neurological: He is alert and oriented to person, place, and time. CN II-XII grossly intact. No focal strength or sensory deficits. Finger to nose and heel to langston intact. No nystagmus. No rigidity, no ankle clonus, down going babinski Skin: Skin is warm and dry. Psychiatric: He has a normal mood and affect. Nursing note and vitals reviewed. Diagnostic Testing ED Labs Ordered and Reviewed - No data to display Procedures ED Course / Clinical Impression ED Course as of May 20 550 Israel Cagle's Documentation Marisol May 20, 2018 05 Neurology stroke consulted at 5:19 AM 0519 Given 20 IV labetalol BP: (!) 218/118 Clinical Impressions as of May 20 550 Headache disorder Marfan syndrome Vertebral artery dissection (HCC) MDM / Disposition / Plan MDM This is a 47 year old male with hx and findings as above. In no acute distress and appears comfortable. Hypertensive to 200s/100s. No focal neuro deficits here. He was given 20 IV labetalol with improvement. Also given morphine. Neuro stroke service evaluated. [place] appropriate for floor admission at this time. Patient updated w/ plan. The patient was ADMITTED TO: Regular nursing floor. Condition at time of disposition: stable SIGNATURE: MD Israel Asif (Res) MD Gurjit Resident 05/20/18 0605 Lauren Bassett 05/21/18 0819 ED NOTE Observed: 05/20/2018 Status: COMPLETED Source: [place] 4:36 AM [facility] REPOSITORY O ID: [id number] Author: Ketan (Rn) RAFIQ Kitchen Service: (none) Author Type: Registered Nurse Type: ED Notes Filed: 05/20/2018 4:36 AM Note Text: Bed: E12-20 Expected date: 05/20/18 Expected time: Means of arrival: Comments: [facility] Stroke EMERGENCY DEPARTMENT Observed: 05/20/2018 Status: F Source: [place] SUMMARY 12:54 AM [facility] REPOSITORY [facility] Medical Records Department [address] [place] [address] Emergency Department Summary 05/19/18 1835 MR#: [id number] Acct: [id number] Name: VANDALEIDY L Rep #: [id number] : 1970 47 From: Geovani Foss MD PCP: Raymond Turcios Status: REG ER History of Present Illness Chief Complaint: Hypertension Informant: Patient, Family Onset: Today Context: Gradual Onset Quality: malaise Location: all over Current Severity: Severe Maximum Severity: Severe Worsened by: nothing Relieved by: nothing Associated Symptoms: mildly pleuritic left chest pain, headache all over, fatigue Narrative: States he has been feeling like this all day over 8-10 hours, states his blood pressure has been over 200 every time he has checked it. States that he felt a headache this morning so he took Sudafed because he has a history of sinus headaches, as he took a dose last night as well. Has a history of an aortic dissection and elephant trunk-repair, states that he was told on occasion if his blood pressure goes very high he may feel the stent in his chest, and he is wondering if that is the left-sided chest discomfort he is having. He states this feels nothing like the dissection that he had. He has never had a coronary stent, but he had a prophylactic bypass given the ascending aortic component of the dissection. Also states that for the last several hours, he does not recall exactly when, he has noticed weakness on his left lower extremity and left upper extremity. That is a new symptom as well. - Past Medical History (1) History of aortic dissection Status: Chronic Comment: Status post repair (2) Hypertension Status: Chronic (3) Marfans syndrome Status: Chronic Past Medical History - Allergies and Home Meds Allergies/Adverse Reactions: Allergies ciprofloxacin [From Cipro] Allergy (Verified 04/08/18 00:48) Rash ciprofloxacin HCl [From Cipro] Allergy (Verified 04/08/18 00:48) Rash sulfamethoxazole [From Bactrim] Allergy (Verified 04/08/18 00:48) Rash tramadol Allergy (Verified 04/08/18 00:48) Itching trimethoprim [From Bactrim] Allergy (Verified 04/08/18 00:48) Rash Primary Care Physician: Raymond Turcios [Primary Care Provider] - Surgical History: - - Aortic dissection repair, index finger amputation right hand, lacerated tendon repair right foot Lives: Spouse/ Significant Other Smoking Status: Current every day smoker - Family History Maternal Family History: Reports: Cancer Paternal Family History: Reports: Hypertension Review of Systems General: Reports: Malaise. Denies: Chills, Fever, Sweats Eyes: Reports: Blurred Vision - bilaterally. Denies: Diplopia ENT: Denies: Bilateral ear pain, Rhinorrhea, Sore throat Cardiovascular: Reports: Chest pain. Denies: Palpitations, Heart racing Respiratory: Denies: Dyspnea, Cough, Dyspnea on exertion Gastrointestinal: Denies: Abdominal pain, Nausea, Vomiting, Diarrhea, Melena, Hematochezia Genitourinary: Denies: Dysuria, Hematuria, Frequency Musculoskeletal: Denies: Neck pain, Back pain, Swelling, Extremity Pain Skin: Denies: Rash, Abscess, Wounds Neurological: Reports: Headache, Weakness - left arm and leg. Denies: Parasthesia, Numbness Allergy: Denies: Swelling of the mouth, Swelling of the tongue Physical Exam Vital Signs/Narrative: Vital Signs Inital Vital Signs reviewed: Yes General: Well nourished, Well developed Head: Normocephalic, Atraumatic Eyes: Perrl, EOMI ENT: Moist mucous membranes, No rhinorrhea. Negative for: Sinus tenderness Neck: Supple, Nontender, No lymphadenopathy, No JVD Cardiovascular: Regular rate, Regular rhythm, No murmurs, Normal S1, Normal S2 Respiratory: No distress, CTA bilaterally, Chest nontender Abdomen: Soft, Nontender, Nondistended, Normal bowel sounds Back: Nontender, Normal Inspection Extremities: Nontender, No edema Skin: Normal color, No rash Neurological: Alert, Oriented x3, Cranial nerves II-XII grossly intact, Normal Sensation, Weakness - LLE drift. LUE weak surgical dressing maker, but no pronator drift. no hemiinattention or hemineglect., - - nml cerebellar and vis waters. No aphasia or dysarthria. Total NIHSS 1, for LLE. Psychological: Normal affect Diagnostic/Tx/Re-eval Impressions Clinical Impression(s) from Imaging Studies Brain CT 05/19/18 17:29 IMPRESSION: Normal unenhanced CT scan of the brain. Electronically Signed: Uche Morales DO at 18:25 EST Tel [phone], Service support , Chest X-Ray 05/19/18 17:41 IMPRESSION: Cardiomegaly. Electronically Signed: Uche Morales DO at 18:02 EST Tel [phone], Service support , Head CTA 05/19/18 19:59 IMPRESSION: Occluded right vertebral artery. Nonvisualization of posterior communicating arteries. Electronically Signed: Uche Morales DO at 21:22 EST Tel [phone], Service support , Neck CTA 05/19/18 19:59 IMPRESSION: Possible dissection of the right vertebral artery. N.B. : The above information has been verbally conveyed by Uche Morales DO to Geovani Foss MD, on 05/19/2018 21:34:44 (ET). Electronically Signed: Uche Morales DO at 21:28 EST Tel [phone], Service support , Laboratory Results WBC RBC Hgb Hct MCV MCH MCHC RDW RDW Differential Plt Count MPV Immature Gran % (Auto) Neut % (Auto) - Rhythm Strip Rhythm Strip: Sinus Rhythm Rate: 85 Ectopy: None - EKG Initial EKG Interpretation: Sinus Rhythm, No Acute Injury Pattern, S-T Depression - laterally Follow-up EKG Interpretation: Sinus Rhythm, No Acute Injury Pattern, Inverted T-Waves - laterally, - - complete resolution of previously seen ST depressions laterally. no strain pattern now. - Medical Decision Making Head CT negative and labs unremarkable except for hypokalemia, EKG shows concern for either left ventricular strain due to hypertension or active ischemia, troponin negative. He was given aspirin 162 mg orally. I discussed with neurology Dr. Devine, he advised getting CT angiography given that his renal function is within normal limits. He advised keeping his blood pressure under 200 systolic in case he is having acute stroke since we cannot get an emergent MRI. This was done using labetalol. He still was in pain all over although his headache and chest discomfort lessened with this and nitroglycerin, so he was given a dose of fentanyl which helped temporarily. CT angiography shows suspicion for a dissecting right vertebral artery with the origin intact and perfusion of the posterior fossa of the brain intact. Posterior communicating artery was not able to be visualized with the contralateral vertebral and basilar are patent and there are no other acute abnormalities. There is no sign of hemorrhage. Discussed again with neurology who advises transfer to a tertiary care center in keeping the blood pressure in the 160-170 range, systolic given that we do not know if he is having a stroke or not. On reevaluation and discussion with the patient, he states that this process he suspects has been going on for 2-3 days, but the weakness is new today compared to the last 3. He states that since his aortic stent was placed, he has had intermittent problems on his left side including a foot drop and wonders if this could be related to that as opposed to stroke, which certainly is possible. However for now, we will try to keep his pressure down but not below 160 if possible. He states he bought a new pillow yesterday because his neck has been sore, but he did not think it was necessarily anything major. Patient had his aorta managed at [facility], that is where he wishes to be transferred now. Accepted there by Dr. Flores. Repeat EKG shows resolution of the ST depressions and LV strain pattern. Procedures Critical care time (excluding procedures): 30-74 minutes - 40 min, including VS management, multiple pt clinical reevaluations, discussion w/ pt and , discussion w/ consultants, arranging transfer ED Disposition - Plan for ED Patient: Disposition: [facility] - Main Chief Complaint: Hypertension Diagnosis: Vertebral artery dissection, Left hemiparesis, Chest pain, unspecified, Marfans syndrome, Hypertensive urgency, Hypokalemia Referrals: Raymond Turcios [Primary Care Provider] - What to do if you have Problems For any increased pain, shortness of breath, bleeding, nausea or vomiting, chest pain, or any unexpected problems, contact your Primary Care Provider. Call [facility] ([phone]) or report to the closest Emergency Room. Call 911 if necessary. 05/20/18 0054 <Electronically signed by Geovani Foss MD> Date Geovani Foss MD Cosigner Signature (If Indicated): Date CC: Raymond Turcios CTA HEAD W/WO Observed: 05/19/2018 Status: F Source: MICHELLE CONTRAST 8:00 PM [facility] REPOSITORY [facility] Imaging Services [address] [place] [address] CTA Head W/WO Contrast MR#: [id number] Acct: [id number] Name: LEIDY DC Rep #: [id number] : 1970 M 47 From: Uche Morales DO PCP: Raymond Turcios Status: REG ER Study: CTA Head W/WO Contrast Date of Exam: 05/19/18 Exam# [id number] Ordering Dr: Geovani Foss MD STUDY: CTA OF THE BRAIN REASON FOR EXAM: Male, 47 years old. Left hemiparesis RADIATION DOSAGE (If Supplied By Facility): CTDIvol = ( 20.84 ) mGy, DLP = ( 821.53 ) mGycm TECHNIQUE: CT angiography was performed with a multi-detector CT scanner. Data acquisition was obtained from the skull base through the vertex following intravenous administration of 100 ml of Isovue-370. MIP images were reconstructed from the axial data set. Post-processing of the angiographic images was performed, with multiplanar reformation and 3D reconstruction. Individualized dose optimization techniques were used for this CT. COMPARISON: None. FINDINGS: Normal bilateral petrous carotid arteries. Normal right cavernous carotid artery with a normal supraclinoid bifurcation. Normal left cavernous carotid artery with a normal supraclinoid bifurcation. Normal right A1 segments of the anterior cerebral artery. Normal left A1 segments of the anterior cerebral artery. Normal intact anterior communicating artery (ACOM). Normal bilateral A2 segments of the anterior cerebral arteries. Normal right M1 and M2 segments of the middle cerebral arteries, with a normal M1 bifurcation. Normal left M1 and M2 segments of the middle cerebral arteries, with a normal M1 bifurcation. Nonvisualization of the bilateral posterior communicating arteries (PCOM). Normal left vertebral artery. Occluded right vertebral artery. Normal basilar artery with a normal basilar bifurcation. The visualized bilateral superior cerebellar (SCA) arteries are normal. Normal bilateral P1, P2 and visualized P3 segments of the posterior cerebral arteries. There is no demonstrated aneurysm of the [place]. There is no demonstrated abnormality of the visualized brain. CT/CTA Head W/WO Contrast IMPRESSION: Occluded right vertebral artery. Nonvisualization of posterior communicating arteries. Electronically Signed: Uche Morales DO at 21:22 EST Tel [phone], Service support , CC: Raymond Turcios; GEOVANI FOSS MD Director Of Channel Marketing: Signed CTA NECK W/WO Observed: 05/19/2018 Status: F Source: [place] CONTRAST 8:00 PM [facility] REPOSITORY [facility] Imaging Services [address] [place] [address] CTA Neck W/WO Contrast MR#: [id number] Acct: [id number] Name: LEIDY DC Rep #: [id number] : 1970 M 47 From: Uche Morales DO PCP: Raymond Turcios Status: REG ER Study: CTA Neck W/WO Contrast Date of Exam: 05/19/18 Exam# [id number] Ordering Dr: Geovani Foss MD STUDY: CTA NECK WITH AND WITHOUT CONTRAST REASON FOR EXAM: Male, 47 years old. Left hemiparesis RADIATION DOSAGE (If Supplied By Facility): CTDIvol = ( 20.84 ) mGy, DLP = ( 821.53 ) mGycm TECHNIQUE: CT angiography with multi-detector data acquisition was performed from the aortic arch to the skull base prior to and after intravenous administration of 100ML ml of Isovue 370 contrast. MIP images were reconstructed from the axial data set. Post-processing of the angiographic images was performed, with multiplanar reformation and 3D reconstruction. Individualized dose optimization techniques were used for this CT. COMPARISON: None. FINDINGS: AORTIC ARCH: Stable aneurysm at the distal aortic arch with a stable stent at the distal aortic arch. Normal origins of the brachiocephalic, left common carotid, and left subclavian arteries. RIGHT CAROTID ARTERIES: Normal right common carotid artery (CCA). Mild atherosclerotic calcifications at the right common carotid bulb. Normal origin of the right internal carotid (ICA) artery without a hemodynamically significant stenosis. Moderate tortuosity and mild ectasia. Normal visualized cervical portion of the right internal carotid artery. Normal origin of the right external carotid artery (ECA). LEFT CAROTID ARTERIES: Normal left common carotid artery (CCA). Normal left common carotid bulb. Normal origin of the left internal carotid (ICA) artery without a hemodynamically significant stenosis. Moderate tortuosity and mild ectasia. Normal visualized cervical portion of the left internal carotid artery. Normal origin of the left external carotid artery (ECA). VERTEBRAL ARTERIES: Normal left vertebral artery. Decreasing opacification of the right vertebral artery with little to no flow distally. A dissection cannot be excluded. CT/CTA Neck W/WO Contrast IMPRESSION: Possible dissection of the right vertebral artery. N.B. : The above information has been verbally conveyed by Uche Morales DO to Geovani Foss MD, on 05/19/2018 21:34:44 (ET). Electronically Signed: Uche Morales DO at 21:28 EST Tel [phone], Service support , CC: Raymond FOSS MD Director Of Channel Marketing: Signed BEDSIDE GLUCOSE Collected: 05/19/2018 Status: F Source: MICHELLE 6:39 PM [facility] REPOSITORY TYPE CODE TESTS RESULT OUT OF RANGE REFERENCE UNITS LAB L501.080 70-110 mg/dL Normal BEDSIDE GLU 106 Result Comment: MANAGEMENT OF PATIENT CARE PER NURSING PROTOCOL Performed By: #### L501.080 #### [facility] Point of Care [address] [place] [address] CHEST 1 VIEW Observed: 05/19/2018 Status: F Source: MICHELLE 5:31 PM [facility] REPOSITORY [facility] Imaging Services [address] [place] [address] Chest 1 View MR#: [id number] Acct: [id number] Name: LEIDY DC Rep #: [id number] : 1970 M 47 From: Uche Morales DO PCP: Raymond Turcios Status: REG ER Study: Chest 1 View Date of Exam: 05/19/18 Exam# [id number] Ordering Dr: Geovani Foss MD STUDY: X-RAY CHEST REASON FOR EXAM: Male, 47 years old. Chest pain, hypertension TECHNIQUE: Single frontal view COMPARISON: April 16, 2017 FINDINGS: Stable sternotomy wires. The lungs are clear and expanded. There is no demonstrated pleural abnormality. Cardiomegaly Normal mediastinum and patrick. Normal visualized pulmonary arteries. There is a stent noted at the proximal thoracic aorta. Normal visualized thoracic spine. Normal visualized ribs, clavicles, and shoulders. There is no demonstrated abnormality of the visualized soft tissue structures of the upper abdomen. RAD/Chest 1 View IMPRESSION: Cardiomegaly. Electronically Signed: Uche Morales DO at 18:02 EST Tel [phone], Service support , CC: Raymond Turcios; GEOVANI FOSS MD Director Of Channel Marketing: Signed BRAIN/HEAD WITHOUT Observed: 05/19/2018 Status: F Source: MICHELLE CONTRAST 5:31 PM [facility] REPOSITORY [facility] Imaging Services [address] [address] Brain/Head without Contrast MR#: [id number] Acct: [id number] Name: LEIDY DC Rep #: [id number] : 1970 M 47 From: Uche Morales DO PCP: Raymond Turcios Status: REG ER Study: Brain/Head without Contrast Date of Exam: 05/19/18 Exam# [id number] Ordering Dr: Geovani Foss MD STUDY: CT BRAIN WITHOUT CONTRAST REASON FOR EXAM: Male, 47 years old. Weakness, hypertension, left hemiparesis RADIATION DOSAGE (If Supplied By Facility): CTDIvol = ( 44.99 ) mGy, DLP = ( 863.60 ) mGycm TECHNIQUE: Transaxial CT imaging of the brain was performed without administration of intravenous contrast material. Individualized dose optimization techniques were used for this CT. COMPARISON: None. FINDINGS: Normal soft tissue structures. Normal calvarium. Normal size ventricles and extra-axial spaces for the patient's age. Normal white matter tracts of the cerebral hemispheres. Normal basal ganglia and thalami. Normal brainstem. Normal cerebellum. There is no intracranial hemorrhage. There are no findings of an acute ischemic infarction. Normal visualized paranasal sinuses. CT/Brain/Head without Contrast IMPRESSION: Normal unenhanced CT scan of the brain. Electronically Signed: Uche Morales DO at 18:25 EST Tel [phone], Service support , CC: Raymond Turcios; GEOVANI FOSS MD Director Of Channel Marketing: Signed CBC W/DIFF, AUTOMATED Collected: 05/19/2018 Status: F Source: MICHELLE 5:15 PM [facility] REPOSITORY TYPE CODE TESTS RESULT OUT OF RANGE REFERENCE UNITS LAB L100.1000 4.4-11.0 K/mm3 Normal WBC 4.9 LAB L100.1200 4.6-6.2 M/mm3 Normal RBC 4.92 LAB L100.1300 13.0-16.5 g/dl Normal HGB 14.5 LAB L100.1400 40-54 % Normal HCT 41.7 LAB L100.1500 80-94 fL Normal MCV 84.8 LAB L100.1600 27.0-32.0 pg Normal MCH 29.5 LAB L100.1700 32-36 g/gl Normal MCHC 34.8 LAB L100.1810 11.6-14.6 % Normal RDW CV 13.1 LAB L100.1820 35.1-43.9 fl Normal RDW SD 40.1 LAB L100.1900 150-450 K/mm3 Normal PLT 287 LAB L100.2000 6.2-12.0 fl Normal MPV 9.7 LAB L100.2100 47-70 % Normal NEUT% 53.2 LAB L100.2200 19-41 % Normal LY% 30.2 LAB L100.2300 0-10 % High MONO% 14.2 LAB L100.2400 0-5 % Normal EO% 1.6 LAB L100.2500 0-1 % Normal BASO% 0.4 LAB L100.2550 0.0-0.9 % Normal IM GRAN % 0.400 Result Comment: IG% - Immature Granulocytes (promyelocytes, myelocytes and metamyelocytes) > 1% indicates that a LEFT SHIFT is Present. LAB L100.2620 2.0-7.7 X10 3/uL Normal Absolute Neut 2.6 LAB L100.2720 0.83-4.51 X10 3/ul Normal Absolute Lymph 1.49 Performed By: #### L100.0100 #### [facility] [address] [place] [address], [id number] PROTHROMBIN TIME W/INR Collected: 05/19/2018 Status: F Source: DEVOL 5:15 PM [facility] REPOSITORY TYPE CODE TESTS RESULT OUT OF RANGE REFERENCE UNITS LAB L300.4150 11.7-14.9 SECONDS Normal PROTIME 13.4 LAB L300.4200 Normal INR 1.0 Performed By: #### L300.3900, L300.4310 #### [facility] [address] [place], [place], [id number] PARTIAL THROMBOPLAST Collected: 05/19/2018 Status: F Source: [place] TIME 5:15 PM [facility] REPOSITORY TYPE CODE TESTS RESULT OUT OF RANGE REFERENCE UNITS LAB L300.4310 24.1-36.2 Seconds Normal PTT 28.6 Performed By: #### L300.3900, L300.4310 #### [facility] [address] [place], [address] BASIC METABOLIC Collected: 05/19/2018 Status: F Source: MICHELLE PROFILE (BMP) 5:15 PM [facility] REPOSITORY TYPE CODE TESTS RESULT OUT OF RANGE REFERENCE UNITS LAB L501.0100 74-106 mg/dL Normal GLU 103 Result Comment: Fasting Glucose result from 100 to 125 mg/dL suggests IMPAIRED HOMEOSTASIS per A.D.A. criteria. Please note revised GLUCOSE reference range effective 2017. LAB L501.1000 7-18 mg/dL Normal BUN 12 LAB L501.1100 0.70-1.30 mg/dL Normal CREAT,SERUM 1.09 Result Comment: The validity of the calculated GFR AND GFRAA in patients over 70 years has not been determined. Clinical correlation is essential. LAB L501.1110 >60 mL/min Normal EST GFR 76 Result Comment: Non- GFR Calc LAB L501.1115 >60 mL/min Normal EST GFR - AA 92 Result Comment: GFR Calc LAB L501.1255 ml/min Normal Estimated CRCL 100.65 LAB L501.1300 10-20 RATIO BUN/CRE Normal 11.0 LAB L501.2200 8.5-10 mg/dL .1 CA Normal 8.9 LAB L501.5300 136-14 mmol/L 5 NA Normal 137 LAB L501.5600 3.5-5. mmol/L Low 1 K 2.8 LAB L501.5900 98-107 mmol/L CL Normal 100 LAB L501.6100 21.0-3 mmol/L 2.0 CO2 Normal 29.0 LAB L501.6200 5-15 GAP Normal 8 Performed By: #### L500.2500, L501.4010 #### [facility] [address] [place], [address] TROPONIN-I Collected: 05/19/2018 Status: F Source: MICHELLE 5:15 PM [facility] REPOSITORY TYPE CODE TESTS RESULT OUT OF RANGE REFERENCE UNITS LAB L501.4010 <0.045 ng/mL Normal 0.019 TROPONIN-I Result Comment: TROPONIN-I EXPECTED VALUES <0.045 Negative 0.045 - 0.590 Consistent with Cardiac Damage > OR = 0.600 Critical Value Not every elevated troponin is indicative of IL. These values should be used with clinical judgement in examining the patient's clinical picture for diagnosis. To establish a diagnosis of IL versus myocardial injury, there must be a demonstrated rise and/or fall in the troponin values, in addition to ischemic symptoms, EKG changes, new regional wall motion abnormality, and/or angiographical evidence. PLEASE NOTE: REFERENCE RANGES EDITED 17 Performed By: #### L500.2500, L501.4010 #### [facility] [address] [place], [address] DISCHARGE INSTRUCTION Observed: 04/08/2018 Status: F Source: MICHELLE 6:19 AM [facility] REPOSITORY [facility] Medical Records Department [address] [place] [address] Discharge Instruction 04/08/18 0424 MR#: [id number] Acct: [id number] Name: LEIDY DC Rep #: [id number] : 1970 47 From: Elijah Campbell MD PCP: Raymond Turcios Status: DEP ER ED Disposition - Plan for ED Patient: Chief Complaint: Flank Pain Instructions: ED Flank Pain Uncertain Cause Referrals: Raymond Turcios [Primary Care Provider] - What to do if you have Problems For any increased pain, shortness of breath, bleeding, nausea or vomiting, chest pain, or any unexpected problems, contact your Primary Care Provider. Call [facility] ([phone]) or report to the closest Emergency Room. Call 911 if necessary. 04/08/18618 <Electronically signed by Elijah Campbell MD> Date Elijah Campbell MD Cosigner Signature (If Indicated): Date CC: Raymond Turcios EMERGENCY DEPARTMENT Observed: 04/08/2018 Status: F Source: DEVOL SUMMARY 6:19 AM [facility] REPOSITORY [facility] Medical Records Department [address] [place] [address] Emergency Department Summary 04/08/18 0421 MR#: [id number] Acct: [id number] Name: LEIDY DC Rep #: [id number] : 1970 47 From: Elijah Campbell MD PCP: Raymond Turcios Status: DEP ER - ER Visit Summary Date of Service: 04/08/18 Chief Complaint: Kidney stone History of Present Illness: The patient is a 47 M who presents with left flank pain. This has been getting worse of the past 3 days. The pain is severe at times. He has noted an increased blood pressure which is concerning for him. He has a history of Marfan syndrome and had a prior dissection repair. He is denying any chest pain or shortness of breath. He does report some urinary frequency and sweats. Physical Examination: Blood pressure 180/97. Otherwise vitals unremarkable. Afebrile. Skin normal in color without diaphoresis or pallor. He is sitting recumbent and appears comfortable. No acute distress. Alert and oriented. Heart regular. Lungs clear. Abdomen soft and nontender. Left CVA tender to palpation. Skin appears normal. Legs unremarkable. Test Results: CBC normal. BMP unremarkable. Urinalysis unremarkable. CT abdomen pelvis showed bilateral renal cysts but no stones or hydronephrosis. Emergency Department Course and Treatment: Patient was initially treated with fluids, Dilaudid, and Zofran. His blood pressure did improve slightly with pain control. I continue to observe while awaiting results. He did require additional Dilaudid. Workup showed renal cysts but nothing that showed an obstruction pattern. No stones. His urinalysis was unremarkable making a kidney infection or kidney stones unlikely. CBC and BMP were unremarkable. He had continued pain and hypertension. He received an additional dose of Dilaudid. I did order CT of his aorta. CT aorta was unremarkable. Patient's blood pressure did improve to the 160s. He said he normally runs in the 150s. Patient declined blood pressure medication. He would like to take his blood pressure medication at home and he will watch his pressure at home. Patient declined admission and would like to go home. I reviewed his labs, imaging. There is nothing to explain his left flank pain at this time. He will return for any new or worsening issues. Monitor blood pressure. Take medications as prescribed. He was given a short course of pain medicine. Return for any new or worsening issues. Treatment Plan: As above Disposition: Discharge Impression: 1. Left flank pain 2. Hypertension This note was generated with Innova dictation software. It may contain incorrect words, spelling, and punctuation that were not noted in review of the chart prior to signing ED Disposition - Plan for ED Patient: Chief Complaint: Flank Pain Referrals: Raymond Turcios [Primary Care Provider] - What to do if you have Problems For any increased pain, shortness of breath, bleeding, nausea or vomiting, chest pain, or any unexpected problems, contact your Primary Care Provider. Call [facility] ([phone]) or report to the closest Emergency Room. Call 911 if necessary. 04/08/18618 <Electronically signed by Elijah Campbell MD> Date Elijah Campbell MD Cosigner Signature (If Indicated): Date CC: Raymond Turcios CTA CHEST W/WO Observed: 04/08/2018 Status: F Source: DEVOL CONTRAST 2:34 AM [facility] REPOSITORY [facility] Imaging Services [address] [place] [address] CTA Chest W/WO Contrast MR#: [id number] Acct: [id number] Name: LEIDY DC Rep #: [id number] : 1970 M 47 From: Jean Alvarenga PCP: Raymond Turcios Status: REG ER Study: CTA Chest W/WO Contrast Date of Exam: 04/08/18 Exam# [id number] Ordering Dr: Elijah Campbell MD STUDY: CTA CHEST REASON FOR EXAM: Male, 47 years old. Chest pain RADIATION DOSAGE (If Supplied By Facility): CTDIvol = ( 18.26 ) mGy, DLP = ( 1115.64 ) mGycm TECHNIQUE: The examination was performed with the intravenous administration of 100ML ml of Isovue 370 contrast material. Post-processing of the angiographic images was performed, with multiplanar reformation and 3D reconstruction. Individualized dose optimization techniques were used for this CT. COMPARISON: None. 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 There is a stent in the proximal descending thoracic aorta. There is NO aortic dissection or thrombosis. There is NO pulmonary embolism. Normal heart and pericardium. Normal mediastinum. Normal hilar regions. Normal visualized trachea and bronchi. The lungs are well expanded. Normal pulmonary parenchyma. Normal pleura. Normal chest wall structures. Normal osseous structures. Normal visualized upper abdomen. 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 There is a stent in the proximal descending thoracic aorta. There is NO aortic dissection or thrombosis. There is NO pulmonary embolism. The lungs are expanded and clear. Electronically Signed: Jean Alvarenga MD at 3:57 EST , Service support , CC: Raymond Turcios; Elijah Campbell MD Director Of Channel Marketing: Signed CTA ABDOMEN W/WO Observed: 04/08/2018 Status: F Source: MICHELLE CONTRAST 2:34 AM [facility] REPOSITORY [facility] Imaging Services [address] [place] [address] CTA Abdomen W/WO Contrast MR#: [id number] Acct: [id number] Name: LEIDY DC Rep #: [id number] : 1970 M 47 From: Jean Alvarenga PCP: Raymond Turcios Status: REG ER Study: CTA Abdomen W/WO Contrast Date of Exam: 04/08/18 Exam# [id number] Ordering Dr: Elijah Campbell MD STUDY: CTA OF THE ABDOMINAL AORTA AND BILATERAL LOWER EXTREMITIES REASON FOR EXAM: Male, 47 years old. Back pain RADIATION DOSAGE (If Supplied By Facility): CTDIvol = ( 18.26 ) mGy, DLP = ( 1115.64 ) mGycm TECHNIQUE: Axial CT angiography multi-detector data acquisition was obtained from the to the following intravenous administration of 100ML ml of Isovue 370 contrast. Axial images and MIP images were reconstructed from the axial data set. Post-processing of the angiographic images was performed, with multiplanar reformation and 3D reconstruction. Individualized dose optimization techniques were used for this CT. TECHNICAL QUALITY: Good COMPARISON: None. Descriptors of Narrowing: None (0%) Mild (< 50%) Moderate (50-70%) Severe (70-90%) Subtotal/Total Occlusion (90-100%) Non-Evaluable (technically non-diagnostic FINDINGS: The abdominal aorta is normal in caliber. There is NO significant plaque. There is NO aneurysm, dissection, stenosis or thrombosis. Mesenteric arterial branches are patent and normal in caliber. The iliac branches are patent and normal in caliber. There is fatty infiltration of the liver. The gallbladder, pancreas, spleen, adrenal glands and kidneys are unremarkable. There is NO acute bowel abnormality. There is NO ascites or free air. Visualized bony structures are within normal limits. CT/CTA Abdomen W/WO Contrast IMPRESSION: There is NO aortic aneurysm, dissection, stenosis or thrombosis. Electronically Signed: Jean Alvarenga MD at 4:05 EST , Service support , CC: Raymond Turcios; Elijah Campbell MD Director Of Channel Marketing: Signed URINALYSIS, COMPLETE Collected: 04/08/2018 Status: F Source: MICHELLE 1:56 AM [facility] REPOSITORY Order Comment: Order Date: 04/08/18 How was Urine Obtained? SOCIAL STUDIES DEPARTMENT CHAIR TO SPECIFY TYPE CODE TESTS RESULT OUT OF RANGE REFERENCE UNITS LAB L400.3000 Yellow COLOR Normal Yellow LAB L400.3050 Clear Normal CLARITY Clear LAB L400.3200 Normal mg/dl Normal GLUCOSE, UR Normal LAB L400.3300 Negative mg/dL Normal BILIRUBIN URINE Negative LAB L400.3400 Negative mg/dl Normal KETONE UR Negative LAB L400.3465 1.002-1.030 Normal SP.GR. DIPSTX 1.015 LAB L400.3550 5.0 - 8.0 pH UR Normal 6.5 LAB L400.3600 Negative mg/dl PROT Normal DIPSTX Negative LAB L400.3700 Normal mg/dl Normal UROBILI Normal LAB L400.3750 Negative Normal NITRITE UR Negative LAB L400.3780 Negative /ul Normal OCCULT BLOOD-UR Negative LAB L400.3800 Negative /ul LEUK Normal ESTERASE Negative LAB L400.4050 0-5 /hpf WBC 0 Normal SEEN LAB L400.4100 0-5 /hpf 0 Normal RBC-UA SEEN LAB L400.4150 0-5 /hpf SQUAM 0 Normal EPI SEEN LAB L400.4300 None Seen /hpf 0 Normal BACTERIA SEEN LAB L400.4350 <or=2+ /hpf 0 Normal MUCUS, URINE SEEN Performed By: #### L400.0001 #### [facility] [address] [place], [address] ABDOMEN/PELVIS WITHOUT Observed: 04/08/2018 Status: F Source: DEVOL CONT 1:12 AM [facility] REPOSITORY [facility] Imaging Services [address] [place] [address] Abdomen/Pelvis without Cont MR#: [id number] Acct: [id number] Name: LEIDY DC Rep #: [id number] : 1970 M 47 From: Jean Alvarenga PCP: Raymond Turcios Status: REG ER Study: Abdomen/Pelvis without Cont Date of Exam: 04/08/18 Exam# [id number] Ordering Dr: Elijah Campbell MD STUDY: CT ABDOMEN AND PELVIS WITHOUT CONTRAST REASON FOR EXAM: Male, 47 years old. Flank pain RADIATION DOSAGE (If Supplied By Facility): CTDIvol = ( 15.62 ) mGy, DLP = ( 932.70 ) mGycm TECHNIQUE: Transaxial images were obtained from the dome of the diaphragm to the symphysis pubis without oral contrast, and without intravenous contrast. Sagittal and coronal images were reconstructed. Individualized dose optimization techniques were used for this CT. COMPARISON: 01/20/2017 FINDINGS: The visualized lung bases are unremarkable. The visualized portions of the heart are within normal limits. Normal liver. Normal gallbladder and extrahepatic biliary system. Normal spleen. Normal pancreas. Normal bilateral adrenal glands. There is a 1 cm cortical cyst of the upper pole the RIGHT kidney. There is a 3 cm parapelvic cyst in the lower pole of the LEFT kidney. There are NO kidney stones or ureteral stones. There is NO hydronephrosis. Normal visualized stomach. Normal small intestine. Normal colon. The appendix is visualized and appears normal. Normal abdominal aorta. Normal inferior vena cava. Normal retroperitoneum. Normal urinary bladder. There is NO ascites, free air, abscess or adenopathy. Normal abdominal wall. Normal osseous structures. CT/Abdomen/Pelvis without Cont IMPRESSION: There is a 1 cm cortical cyst of the upper pole the RIGHT kidney. There is a 3 cm parapelvic cyst in the lower pole of the LEFT kidney. There are NO kidney stones or ureteral stones. There is NO hydronephrosis. Normal visualized stomach. Normal small intestine. Normal colon. The appendix is visualized and appears normal. There is NO ascites, free air, abscess or adenopathy. Electronically Signed: Jean Alvarenga MD at 2:22 EST , Service support , CC: Raymond Turcios; Elijah Campbell MD Director Of Channel Marketing: Signed CBC W/DIFF, AUTOMATED Collected: 04/08/2018 Status: F Source: MICHELLE 12:50 AM [facility] REPOSITORY TYPE CODE TESTS RESULT OUT OF RANGE REFERENCE UNITS LAB L100.1000 4.4-11.0 K/mm3 Normal WBC 6.4 LAB L100.1200 4.6-6.2 M/mm3 Normal RBC 4.83 LAB L100.1300 13.0-16.5 g/dl Normal HGB 14.4 LAB L100.1400 40-54 % Normal HCT 41.3 LAB L100.1500 80-94 fL Normal MCV 85.5 LAB L100.1600 27.0-32.0 pg Normal MCH 29.8 LAB L100.1700 32-36 g/gl Normal MCHC 34.9 LAB L100.1810 11.6-14.6 % Normal RDW CV 12.9 LAB L100.1820 35.1-43.9 fl Normal RDW SD 39.6 LAB L100.1900 150-450 K/mm3 Normal PLT 260 LAB L100.2000 6.2-12.0 fl Normal MPV 9.4 LAB L100.2100 47-70 % Normal NEUT% 61.4 LAB L100.2200 19-41 % Normal LY% 20.9 LAB L100.2300 0-10 % High MONO% 15.7 LAB L100.2400 0-5 % Normal EO% 1.1 LAB L100.2500 0-1 % Normal BASO% 0.3 LAB L100.2550 0.0-0.9 % Normal IM GRAN % 0.600 Result Comment: IG% - Immature Granulocytes (promyelocytes, myelocytes and metamyelocytes) > 1% indicates that a LEFT SHIFT is Present. LAB L100.2620 2.0-7.7 X10 3/uL Normal Absolute Neut 3.9 LAB L100.2720 0.83-4.51 X10 3/ul Normal Absolute Lymph 1.33 Performed By: #### L100.0100 #### [facility] [address] [facility] [place], [place], [id number] BASIC METABOLIC Collected: 04/08/2018 Status: F Source: MICHELLE PROFILE ([facility]) 12:50 AM [facility] REPOSITORY TYPE CODE TESTS RESULT OUT OF RANGE REFERENCE UNITS LAB L501.0100 74-106 mg/dL Normal GLU 99 Result Comment: Please note revised GLUCOSE reference range effective 2017. LAB L501.1000 7-18 mg/dL Normal BUN 18 LAB L501.1100 0.70-1.30 mg/dL Normal CREAT,SERUM 0.95 Result Comment: The validity of the calculated GFR AND GFRAA in patients over 70 years has not been determined. Clinical correlation is essential. LAB L501.1110 >60 mL/min Normal EST GFR 90 Result Comment: Non- GFR Calc LAB L501.1115 >60 mL/min Normal EST GFR - AA 109 Result Comment: GFR Calc LAB L501.1255 ml/min Normal Estimated CRCL 115.48 LAB L501.1300 10-20 RATIO BUN/CRE Normal 19.0 LAB L501.2200 8.5-10 mg/dL .1 CA Normal 8.5 LAB L501.5300 136-14 mmol/L Low 5 NA 135 LAB L501.5600 3.5-5. mmol/L 1 K Normal 3.6 LAB L501.5900 98-107 mmol/L CL Normal 99 LAB L501.6100 21.0-3 mmol/L 2.0 CO2 Normal 30.0 LAB L501.6200 5-15 GAP Normal 6 Performed By: #### L500.2500 #### [facility] [address] [place], [address] EMERGENCY DEPARTMENT Observed: 02/23/2018 Status: F Source: DEVOL SUMMARY 12:06 AM [facility] REPOSITORY [facility] Medical Records Department [address] [place] [address] Emergency Department Summary 02/22/18 2319 MR#: [id number] Acct: [id number] Name: LEIDY DC Rep #: [id number] : 1970 47 From: Felisa Samaniego MD PCP: Raymond Turcios Status: DEP ER - ER Visit Summary Date of Service: 02/22/18 Chief Complaint: Back pain History of Present Illness: The patient is a 47 M with a history of prior back pain. 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 Patient was bending over picking up sticks in his yard today and started to feel his lower back tightening up. He has pain in the right lower back with some radiation to the mid thigh on the right. He denies paresthesias. No problems bowel bladder. No direct trauma to his back. Patient has taken Tylenol, ibuprofen, and Lyrica. Past history is significant for Marfan's syndrome with a prior aortic dissection. He also is a history of hypertension and high cholesterol. Physical Examination: Blood pressure on arrival is 217/103, temperature 97.8, heart rate 74, respiratory rate 17, pulse ox 94% on room air. Patient is lying in bed no acute distress. Heart is regular rate and rhythm. Lung sounds clear. Abdomen is soft and nontender. Back examination was reproducible tenderness in the right lumbar paraspinal muscles. Lower extreme examination was good strength and sensation with strong and equal distal pulses. Test Results: Emergency Department Course and Treatment: Patient was given IM morphine. On repeat evaluation blood pressure remains elevated at 212/117. He did take his evening blood pressure medications approximately an hour and a half prior to arrival. He has as needed clonidine that he did not take tonight. He is given a dose of that at this time. Blood pressure is currently 184/110. Patient will be observed for an additional short period of time, with plan for discharge to home. He will be given a short course of Percocet for home. Treatment Plan: Disposition: Discharge Impression: Right lumbar paraspinal strain Hypertension This note was generated with Innova dictation software. It may contain incorrect words, spelling, and punctuation that were not noted in review of the chart prior to signing ED Disposition - Plan for ED Patient: Chief Complaint: Back Referrals: Raymond Turcios [Primary Care Provider] - What to do if you have Problems For any increased pain, shortness of breath, bleeding, nausea or vomiting, chest pain, or any unexpected problems, contact your Primary Care Provider. Call [facility] ([phone]) or report to the closest Emergency Room. Call 911 if necessary. 02/23/18 0006 <Electronically signed by Felisa Samaniego MD> Date Felisa Samaniego MD Cosigner Signature (If Indicated): Date CC: Raymond Turcios DISCHARGE INSTRUCTION Observed: 02/22/2018 Status: F Source: MICHELLE 11:25 PM [facility] REPOSITORY [facility] Medical Records Department [address] [address] Discharge Instruction 02/22/182323 MR#: [id number] Acct: [id number] Name: LEIDY DC Rep #: [id number] : 1970 47 From: Felisa Samaniego MD PCP: Raymond Turcios Status: REG ER ED Disposition - Plan for ED Patient: Disposition: Home or Assisted Living Chief Complaint: Back Instructions: ED Sprain Strain Lumbar Prescriptions: Oxycodone HCl/Acetaminophen [Percocet 5/325] 1 tablet PO Q6H PRN PRN 3 Days #12 tablet PRN Reason: Pain Referrals: Raymond Turcios [Primary Care Provider] - 1 Week What to do if you have Problems For any increased pain, shortness of breath, bleeding, nausea or vomiting, chest pain, or any unexpected problems, contact your Primary Care Provider. Call [facility] ([phone]) or report to the closest Emergency Room. Call 911 if necessary. 02/22/182324 <Electronically signed by Felisa Samaniego MD> Date Felisa Samaniego MD Cosigner Signature (If Indicated): Date CC: Raymond Turcios URINE DRUG SCREEN Collected: 12/01/2017 Status: F Source: MICHELLE (VISTA) 3:14 PM [facility] REPOSITORY Order Comment: Comments: [id number] URINE DRUG SCREEN RUN LOWEST TEST List of Drugs Taken or Suspected? UNK TYPE CODE TESTS RESULT OUT OF RANGE REFERENCE UNITS LAB L505.0075 TO BE Normal CONFIRMED Result Comment: CONFIRMATORY TESTING FOR ALL POSITIVE URINE DRUG SCREEN RESULTS WILL ONLY BE SENT OUT UPON PHYSICIAN ORDER. VISTA Urine Drug Screen methods provide only preliminary analytical test results. A more specific alternate chemical method must be used in order to obtain a confirmed analytical result. Gas chromatography/mass spectrometery (GC/MS) is the preferred confirmatory method. Clinical consideration and professional judgement should be applied to any drug of abuse test result, particularly when preliminary positive results are used. URINE TCA TESTING MUST BE ORDERED SEPARATELY. USE TEST MNEMONIC: [facility] LAB L505.5005 VISTA UDS PH 5 Normal LAB L505.5015 <1000 ng/mL AMPHETAMINES Normal NEGATIVE LAB L505.5025 < 200 ng/mL BARBITIURATES Normal NEGATIVE LAB L505.5035 < 200 ng/mL BENZODIAZIPINE Normal NEGATIVE LAB L505.5045 < 300 ng/mL COCAINE Normal NEGATIVE LAB L505.5055 < 500 ng/mL ECSTACY Normal NEGATIVE LAB L505.5065 < 300 ng/mL METHADONE Normal NEGATIVE LAB L505.5075 < 300 ng/mL OPIATES Normal NEGATIVE LAB L505.5085 < 25 ng/mL PCP Normal NEGATIVE LAB L505.5095 < 50 ng/mL THC Normal NEGATIVE Performed By: #### L505.5000 #### [facility] [address] [place], [address] MISCELLANEOUS LAB Collected: 12/01/2017 Status: F Source: DEVOL PROCEDURE 3:14 PM [facility] REPOSITORY Order Comment: Comments: [id number] URINE DRUG SCREEN RUN LOWEST TEST Test(s) Ordered: [id number] URINE DRUG SCREEN RUN LOWEST TEST TYPE CODE TESTS RESULT OUT OF RANGE REFERENCE UNITS LAB L801.1541 Normal [facility] TEST Result Comment: TEST RESULT UNITS REF INTERVAL [id number] 6+Oxycodone-Bund Amphetamines Positive Jglmnv=[id number] Please Note: Amphetamine test includes Amphetamine and Methamphetamine. Amphetamine Positive Amphetamine GC/MS Conf 1316 ng/mL Zuctvk=304 Methamphetamine Negative Vaozig=397 Barbiturate Negative ng/mL Auafza=108 Benzodiazepines Negative ng/mL Xfxxgd=128 Cannabinoids Negative ng/mL Cutoff=20 Cocaine (Metabolite) Negative ng/mL Sqdycj=477 Opiates Negative ng/mL Rwjunc=101 Opiate test includes Codeine, Morphine, Hydromorphone, Hydrocodone. Oxycodone/Oxymorphone, Urine Negative ng/mL Iahjlc=718 Test includes Oxycodone and Oxymorphone TESTING PERFORMED AT [facility]. ORIGINAL REPORT ON FILE IN LAB CONTAINS ADDITIONAL TEST SITE INFORMATION. Performed By: #### L801.1541 #### [facility] [address] [place], [address] PROGRESS Observed: 10/01/2017 Status: COMPLETED Source: [place] 6:20 PM [facility] REPOSITORY HNO ID: [id number] Author: Lobo Kim) Service: (none) Author Type: Nurse Practitioner Type: Progress Notes Filed: 10/01/2017 7:44 PM Note Text: Subjective HPI HPI Leidy Dc is a 46 year old male who presents today for CC of cough, nasal congestion. This started 2 days ago. Has tried otc medicatoin. Symptoms are worsened by nothing. Risk factors none known. .Patient presents with: Nasal Congestion Cough PAST MEDICAL HISTORY Diagnosis Date - Aortic dissection, ascending 03/08/2011 - CAD (coronary artery disease) SVG to RCA - HTN (hypertension) 02/13/2016 - Hyperlipidemia 03/13/2011 - Marfan's syndrome 2010 2011: s/p Niels's procedures, ascending aorta AND arch repair w 28 mm Dacron graft, frozen elephant trunk procedure w direct placement of a 34 mm x 10 cm Exira-Tag thoracic stent graft - S/P mitral valve repair 2010 plication of the anterior leaflet and right axillary aortic cannulation with an 8 mm graft PAST SURGICAL HISTORY Procedure Laterality Date - ASCENDING AORTIC GRAFT 03/08/2011 Emergent. Valve sparing aortic root replacement . Aortic valve (Niels's procedure) with 32-mm Valsalva Dacron graft, reconstruction of the RCA, CABGx1 (SVG-RCA), ascending aorta and arch repair with 28- mm Dacron graft, frozen elephant trunk procedure 34 mm x 10 ccm Exira-Tag thoracic stent graft, mitral valve repair with with plication of the anterior leaflet and right axillary aortic cannulation - PAST SURGICAL HISTORY OF right hand surgery after saw injury (lost index finger) - PAST SURGICAL HISTORY OF toe surgery after injury; also hammer toe surgery - PAST SURGICAL HISTORY OF CABGx1 - TONSILLECTOMY HX ALLERGIES Bactrim [Sulfamethoxazole-Trimethoprim]; Ciprofloxacin; Tramadol MEDICATIONS RABEprazole (ACIPHEX) 20 mg tablet Take 20 mg by mouth once daily. albuterol HFA (VENTOLIN HFA) 90 mcg/actuation inhaler Inhale 2 Puffs as instructed every 4 hours as needed for Wheezing/Shortness of Breath. losartan (COZAAR) 100 mg tablet Take 100 mg by mouth once daily. cloNIDine HCl (CATAPRES) 0.1 mg tablet Take 0.1 mg by mouth three times daily. pregabalin (LYRICA) 150 mg capsule Take 150 mg by mouth twice daily. ALBUTEROL INHALATION Inhale as instructed as needed. atorvastatin (LIPITOR) 80 mg tablet Take 1 tablet by mouth daily at bedtime. metoprolol succinate ER (TOPROL XL) 100 mg Tb24 Take 1 tablet by mouth once daily. aspirin, enteric coated (ADULT LOW DOSE ASPIRIN) 81 mg ORAL EC tablet Take 1 tablet by mouth once daily. benzonatate (TESSALON PERLE) 100 mg capsule Take 2 capsules by mouth three times daily as needed for Cough. FAMILY HISTORY Problem Relation Age of Onset - Marfan's syndrome [OTHER] Child 2 children with Marfans' - Heart Paternal Uncle had heart failure at age 48 - Ischemic Heart Disease Paternal Grandfather age 60s, [place] - Ischemic Heart Disease Maternal Grandfather age 80s,. strokes, MIs - Hypertension Father Social History Substance Use Topics - Smoking status: Never Smoker - Smokeless tobacco: Never Used - Alcohol use No Review of Systems Constitutional: Negative for chills, fever and weight loss. HENT: Positive for congestion and ear pain. Negative for nosebleeds and sore throat. Respiratory: Positive for cough. Negative for shortness of breath and wheezing. Cardiovascular: Negative for chest pain. Musculoskeletal: Negative for neck pain. Objective Blood pressure 122/82, pulse 87, temperature 36.6 ?C (97.8 ?F), temperature source Left Tympanic, resp. rate 16, weight 105.9 kg (233 lb 6.4 oz), SpO2 95 %. Physical Exam Constitutional: He is oriented to person, place, and time and well-developed, well-nourished, and in no distress. Non-toxic appearance. He does not have a sickly appearance. No distress. HENT: Head: Normocephalic and atraumatic. Right Ear: Hearing, tympanic membrane, external ear and ear canal normal. Left Ear: Hearing, external ear and ear canal normal. Tympanic membrane is erythematous and bulging. Tympanic membrane is not perforated. Nose: Nose normal. Mouth/Throat: Uvula is midline, oropharynx is clear and moist and mucous membranes are normal. Eyes: Conjunctivae and lids are normal. Pupils are equal, round, and reactive to light. Right eye exhibits no discharge. Left eye exhibits no discharge. No scleral icterus. Neck: Trachea normal and normal range of motion. Neck supple. Cardiovascular: Normal rate, regular rhythm and normal heart sounds. Pulmonary/Chest: Effort normal and breath sounds normal. Lymphadenopathy: He has no cervical adenopathy. Neurological: He is alert and oriented to person, place, and time. Skin: No rash noted. He is not diaphoretic. ASSESSMENT/PLAN: 1. URI with cough and congestion - ICD9: 465.9, ICD10: J06.9 (primary diagnosis) - Discussed viral etiology and rationale for treatment. - Symptomatic treatment with prn analgesia - Supportive care with fluids and rest - Follow up in 3-5 days if symptoms persist or sooner if worsening of symptoms - FLUTICASONE 50 MCG/ACTUATION NASAL SPRAY,SUSPENSION 2. Acute otitis media, left - ICD9: 382.9, ICD10: H66.92 - Will begin treatment with Amoxicillin for 10 days - Supportive care with plenty of fluids, rest, and analgesia prn. - Follow up in 3-5 days if symptoms persist or worsen. - AMOXICILLIN 875 MG TABLET Prescription instructions reviewed with patient as applicable. Patient advised if symptoms do not improve or if symptoms worsen sooner, to contact the office for further evaluation by their primary care physician. Potential red flag symptoms discussed with the patient. Reviewed appropriate action plan to take if red flag symptoms occur. Patient agreeable to treatment plan. Lobo Cho APRN.CONSUMER MARKETING SPECIALIST CNOV Observed: 10/01/2017 Status: COMPLETED Source: [place] 6:15 PM [facility] REPOSITORY Office Visit ([facility]) LEIDY DC ([id number]) 1970 M Date Time Provider Department 10/01/17 6:15 PM LOBO CHO (CONSUMER MARKETING SPECIALIST) [facility] During your visit today, we recorded the following information about you: Temperature Pulse Respiration Blood pressure 97.8 degrees 87/minute 16/minute 122/82 Weight 105.9 kg Lobo Cho APRN.CNP 10/01/2017 7:44 PM Signed Subjective HPI HPI Leidy Dc is a 46 year old male who presents today for CC of cough, nasal congestion. This started 2 days ago. Has tried otc medicatoin. Symptoms are worsened by nothing. Risk factors none known. .Patient presents with: Nasal Congestion Cough PAST MEDICAL HISTORY Diagnosis Date - Aortic dissection, ascending 03/08/2011 - CAD (coronary artery disease) SVG to RCA - HTN (hypertension) 02/13/2016 - Hyperlipidemia 03/13/2011 - Marfan's syndrome 2010 2011: s/p Niels's procedures, ascending aorta AND arch repair w 28 mm Dacron graft, frozen elephant trunk procedure w direct placement of a 34 mm x 10 cm Exira-Tag thoracic stent graft - S/P mitral valve repair 2010 plication of the anterior leaflet and right axillary aortic cannulation with an 8 mm graft PAST SURGICAL HISTORY Procedure Laterality Date - ASCENDING AORTIC GRAFT 03/08/2011 Emergent. Valve sparing aortic root replacement . Aortic valve (Niels's procedure) with 32-mm Valsalva Dacron graft, reconstruction of the RCA, CABGx1 (SVG-RCA), ascending aorta and arch repair with 28-mm Dacron graft, frozen elephant trunk procedure 34 mm x 10 ccm Exira-Tag thoracic stent graft, mitral valve repair with with plication of the anterior leaflet and right axillary aortic cannulation - PAST SURGICAL HISTORY OF right hand surgery after saw injury (lost index finger) - PAST SURGICAL HISTORY OF toe surgery after injury; also hammer toe surgery - PAST SURGICAL HISTORY OF CABGx1 - TONSILLECTOMY HX ALLERGIES Bactrim [Sulfamethoxazole-Trimethoprim]; Ciprofloxacin; Tramadol MEDICATIONS RABEprazole (ACIPHEX) 20 mg tablet Take 20 mg by mouth once daily. albuterol HFA (VENTOLIN HFA) 90 mcg/actuation inhaler Inhale 2 Puffs as instructed every 4 hours as needed for Wheezing/Shortness of Breath. losartan (COZAAR) 100 mg tablet Take 100 mg by mouth once daily. cloNIDine HCl (CATAPRES) 0.1 mg tablet Take 0.1 mg by mouth three times daily. pregabalin (LYRICA) 150 mg capsule Take 150 mg by mouth twice daily. ALBUTEROL INHALATION Inhale as instructed as needed. atorvastatin (LIPITOR) 80 mg tablet Take 1 tablet by mouth daily at bedtime. metoprolol succinate ER (TOPROL XL) 100 mg Tb24 Take 1 tablet by mouth once daily. aspirin, enteric coated (ADULT LOW DOSE ASPIRIN) 81 mg ORAL EC tablet Take 1 tablet by mouth once daily. benzonatate (TESSALON PERLE) 100 mg capsule Take 2 capsules by mouth three times daily as needed for Cough. FAMILY HISTORY Problem Relation Age of Onset - Marfan's syndrome [OTHER] Child 2 children with Marfans' - Heart Paternal Uncle had heart failure at age 48 - Ischemic Heart Disease Paternal Grandfather age 60s, [place] - Ischemic Heart Disease Maternal Grandfather age 80s,. strokes, MIs - Hypertension Father Social History Substance Use Topics - Smoking status: Never Smoker - Smokeless tobacco: Never Used - Alcohol use No Review of Systems Constitutional: Negative for chills, fever and weight loss. HENT: Positive for congestion and ear pain. Negative for nosebleeds and sore throat. Respiratory: Positive for cough. Negative for shortness of breath and wheezing. Cardiovascular: Negative for chest pain. Musculoskeletal: Negative for neck pain. Objective Blood pressure 122/82, pulse 87, temperature 36.6 ?C (97.8 ?F), temperature source Left Tympanic, resp. rate 16, weight 105.9 kg (233 lb 6.4 oz), SpO2 95 %. Physical Exam Constitutional: He is oriented to person, place, and time and well-developed, well-nourished, and in no distress. Non-toxic appearance. He does not have a sickly appearance. No distress. HENT: Head: Normocephalic and atraumatic. Right Ear: Hearing, tympanic membrane, external ear and ear canal normal. Left Ear: Hearing, external ear and ear canal normal. Tympanic membrane is erythematous and bulging. Tympanic membrane is not perforated. Nose: Nose normal. Mouth/Throat: Uvula is midline, oropharynx is clear and moist and mucous membranes are normal. Eyes: Conjunctivae and lids are normal. Pupils are equal, round, and reactive to light. Right eye exhibits no discharge. Left eye exhibits no discharge. No scleral icterus. Neck: Trachea normal and normal range of motion. Neck supple. Cardiovascular: Normal rate, regular rhythm and normal heart sounds. Pulmonary/Chest: Effort normal and breath sounds normal. Lymphadenopathy: He has no cervical adenopathy. Neurological: He is alert and oriented to person, place, and time. Skin: No rash noted. He is not diaphoretic. ASSESSMENT/PLAN: 1. URI with cough and congestion - ICD9: 465.9, ICD10: J06.9 (primary diagnosis) - Discussed viral etiology and rationale for treatment. - Symptomatic treatment with prn analgesia - Supportive care with fluids and rest - Follow up in 3-5 days if symptoms persist or sooner if worsening of symptoms - FLUTICASONE 50 MCG/ACTUATION NASAL SPRAY,SUSPENSION 2. Acute otitis media, left - ICD9: 382.9, ICD10: H66.92 - Will begin treatment with Amoxicillin for 10 days - Supportive care with plenty of fluids, rest, and analgesia prn. - Follow up in 3-5 days if symptoms persist or worsen. - AMOXICILLIN 875 MG TABLET Prescription instructions reviewed with patient as applicable. Patient advised if symptoms do not improve or if symptoms worsen sooner, to contact the office for further evaluation by their primary care physician. Potential red flag symptoms discussed with the patient. Reviewed appropriate action plan to take if red flag symptoms occur. Patient agreeable to treatment plan. Lobo Cho APRN.LV Cho APRN.LV 10/01/2017 6:33 PM Signed OTITIS MEDIA GENERAL INFORMATION: Otitis media is an infection of the middle ear. The middle ear sits behind the eardrum. This infection may be caused by a virus or bacteria and often follows a cold. Children often have repeat ear infections. Otitis media is not contagious. INSTRUCTIONS: 1. An antibiotic has been prescribed. It should be taken exactly as prescribed. Do not stop the medicine even if the symptoms go away. 2. Cuwz-eog-obqkjvw pain medication may be taken or other pain medication as prescribed by the doctor. 3. Nothing should be placed in the ear unless instructed by your doctor. 4. The patient may return to school/daycare or work when the temperature is normal (98.6 F or 37 C). 5. The patient should not swim while the ear is infected. CONTACT YOUR DOCTOR IF YOU OR YOUR CHILD: 1. Does not feel better within 36 hours. 2. Develops a temperature over 102E F (39E C). 3. Starts vomiting or has diarrhea. 4. Develops drainage from the affected ear. 5. Has any new problem that may be related to the medicine prescribed. RETURN TO THE ED IF: 1. You or your child has a severe headache or pain around the ear. 2. You or your child notice swelling around the ear. 3. You or your child has a seizure (convulsion), twitching of the facial muscles, or passes out. 4. You or your child is dizzy, has a stiff neck, or cannot walk or talk normally. 5. Your child becomes more irritable or listless (not interested in his or her surroundings, does not get soothed by you holding him or her). RESPIRATORY INFECTION GENERAL INFORMATION: An upper respiratory tract infection, or cold, is a viral infection of the airway passages. It can be caused by any one of almost 200 different viruses. Common symptoms include a runny or stuffy nose, sneezing, watery eyes, sore throat, cough, and slight fever. Colds are contagious, especially during the first 3 or 4 days and cannot be cured by antibiotics. They are spread by coughs, sneezes, and direct contact, especially [id number]. A respiratory tract infection usually clears up in a few days, but some people may be sick for a week or two. INSTRUCTIONS: 1. Be careful not to blow your nose too hard because this may cause a nosebleed. 2. Use a cool-mist humidifier (vaporizer) to increase air moisture. This will make it easier for you to breathe. Do not use hot steam. 3. Rest as much as possible and get plenty of sleep. 4. Wash your hands often, especially after you blow your nose. Cover your mouth and nose with a tissue when you sneeze or cough. 5. Drink plenty of clear fluids (8 glasses a day) such as water, fruit juice, tea, clear soups, and carbonated beverages. CONTACT YOUR DOCTOR IF : 1. Your fever lasts more than 3 days. 2. You have a sore throat that gets worse or you see white or yellow spots in your throat. 3. Your cough gets worse or lasts more than 10 days. 4. You develop a rash anywhere on your skin. 5. You have an earache or a headache. 6. You have thick greenish or yellowish discharge from your nose. RETURN IMMEDIATELY IF: 1. You cough up thick yellow, green, painter, or bloody sputum. 2. You have difficulty breathing, pain in your chest, or your skin or nails look painter or blue. 3. You have shaking chills or a temperature over 102 F (39 C). Referring Provider: SELF [200] Allergies As of Date: 10/01/2017 Noted Allergy Reaction BACTRIM (SULFAMETHOXAZOLE-TRIMETH*04/14/2015 4 - Hives CIPROFLOXACIN 04/12/2015 4 - Hives TRAMADOL 11/27/2016 2 - Rash Date Reviewed: 10/01/2017 Reviewed by: Lobo ([facility] Cho - Fully Assessed Reason for Visit: Nasal Congestion [235] Cough [28] Primary Visit Diagnosis:URI with cough and congestion [J06.9] Other Visit Diagnosis:Acute otitis media, left [H66.92] Order(s):amoxicillin (AMOXIL) 875 mg tabletTake 1 tablet by mouth twice daily for 10 days.Disp: 20 tabletRfl: 0 fluticasone (FLONASE) 50 mcg/actuation nasal sprayUse 2 Sprays in each nostril once daily. Rinse mouth after use.Disp: 1 BottleRfl: 1 Prescriptions as of 10/01/2017 Sig: RABEPRAZOLE 20 MG TABLET,TRACI* Take 20 mg by mouth once usha* ALBUTEROL SULFATE HFA 90 MCG/* Inhale 2 Puffs as instructed * LOSARTAN 100 MG TABLET Take 100 mg by mouth once corrina* CLONIDINE HCL 0.1 MG TABLET Take 0.1 mg by mouth three ti* PREGABALIN 150 MG CAPSULE Take 150 mg by mouth twice da* ALBUTEROL INHALATION Inhale as instructed as need* ATORVASTATIN 80 MG TABLET Take 1 tablet by mouth daily * METOPROLOL SUCCINATE ER 100 M* Take 1 tablet by mouth once d* ASPIRIN 81 MG TABLET,DELAYED * Take 1 tablet by mouth once d* AMOXICILLIN 875 MG TABLET Take 1 tablet by mouth twice * FLUTICASONE 50 MCG/ACTUATION * Use 2 Sprays in each nostril * BENZONATATE 100 MG CAPSULE Take 2 capsules by mouth thre* Problem List As Of Date 10/01/2017 Noted Resolved SUMMARY [V999.95] INVALID FOR*03/17/2011 Priority: A More... Aortic dissection, ascending [I71.00] INVALID FOR*02/13/2016 Priority: Very Severe More... Marfan syndrome [Q87.40] INVALID FOR*03/18/2011 Priority: C More... More... pulm insuff/ FVO [YFC1728] INVALID FOR*02/13/2016 Priority: B More... Fluid overload [E87.70] INVALID FOR*03/17/2011 Priority: F More... Stress hyperglycemia [R73.9] INVALID FOR*03/13/2011 Priority: E More... Sinus tachycardia [R00.0] INVALID FOR*03/17/2011 Priority: B More... Pain [R52] INVALID FOR*11/27/2016 Priority: D More... Leukocytosis [D72.829] INVALID FOR*03/13/2011 Priority: I More... CAD [I25.10] INVALID FOR*11/27/2016 Priority: A More... Thrombocytopenia [D69.6] INVALID FOR*03/14/2011 Priority: H More... More... Acute blood loss anemia-postoperative [D62] INVALID FOR*03/16/2011 Priority: C More... Depressed state [F32.9] INVALID FOR*03/17/2011 Priority: K More... Hyperlipidemia [E78.5] INVALID FOR*02/13/2016 Priority: F More... Bleeding nose [R04.0] INVALID FOR*03/16/2011 Priority: E More... Leukocytosis [D72.829] INVALID FOR*03/18/2011 Priority: B More... Pericardial effusion [I31.3] INVALID FOR*02/13/2016 Priority: A More... Marfan syndrome [Q87.40] INVALID FOR* S/P thoracic aortic aneurysm repair [Z98.890, Z*INVALID FOR* Angina at rest (HCC) [I20.8] INVALID FOR*11/27/2016 More... GERD (gastroesophageal reflux disease) [K21.9] INVALID FOR* More... HTN (hypertension) [I10] INVALID FOR* More... Marfan's syndrome [Q87.40] More... S/P mitral valve repair [Z98.890] More... 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 The middle ear sits behind the eardrum. This infection may be caused by a virus or bacteria and often follows a cold. Children often have repeat ear infections. Otitis media is not contagious. INSTRUCTIONS: 1. An antibiotic has been prescribed. It should be taken exactly as prescribed. Do not stop the medicine even if the symptoms go away. 2. Pevm-wve-xbnembw pain medication may be taken or other pain medication as prescribed by the doctor. 3. Nothing should be placed in the ear unless instructed by your doctor. 4. The patient may return to school/daycare or work when the temperature is normal (98.6 F or 37 C). 5. The patient should not swim while the ear is infected. CONTACT YOUR DOCTOR IF YOU OR YOUR CHILD: 1. Does not feel better within 36 hours. 2. Develops a temperature over 102E F (39E C). 3. Starts vomiting or has diarrhea. 4. Develops drainage from the affected ear. 5. Has any new problem that may be related to the medicine prescribed. RETURN TO THE ED IF: 1. You or your child has a severe headache or pain around the ear. 2. You or your child notice swelling around the ear. 3. You or your child has a seizure (convulsion), twitching of the facial muscles, or passes out. 4. You or your child is dizzy, has a stiff neck, or cannot walk or talk normally. 5. Your child becomes more irritable or listless (not interested in his or her surroundings, does not get soothed by you holding him or her). RESPIRATORY INFECTION GENERAL INFORMATION: An upper respiratory tract infection, or cold, is a viral infection of the airway passages. It can be caused by any one of almost 200 different viruses. Common symptoms include a runny or stuffy nose, sneezing, watery eyes, sore throat, cough, and slight fever. Colds are contagious, especially during the first 3 or 4 days and cannot be cured by antibiotics. They are spread by coughs, sneezes, and direct contact, especially [id number]. A respiratory tract infection usually clears up in a few days, but some people may be sick for a week or two. INSTRUCTIONS: 1. Be careful not to blow your nose too hard because this may cause a nosebleed. 2. Use a cool-mist humidifier (vaporizer) to increase air moisture. This will make it easier for you to breathe. Do not use hot steam. 3. Rest as much as possible and get plenty of sleep. 4. Wash your hands often, especially after you blow your nose. Cover your mouth and nose with a tissue when you sneeze or cough. 5. Drink plenty of clear fluids (8 glasses a day) such as water, fruit juice, tea, clear soups, and carbonated beverages. CONTACT YOUR DOCTOR IF : 1. Your fever lasts more than 3 days. 2. You have a sore throat that gets worse or you see white or yellow spots in your throat. 3. Your cough gets worse or lasts more than 10 days. 4. You develop a rash anywhere on your skin. 5. You have an earache or a headache. 6. You have thick greenish or yellowish discharge from your nose. RETURN IMMEDIATELY IF: 1. You cough up thick yellow, green, painter, or bloody sputum. 2. You have difficulty breathing, pain in your chest, or your skin or nails look painter or blue. 3. You have shaking chills or a temperature over 102 F (39 C). Prescriptions ordered this encounter Disp Refills Start End AMOXICILLIN 875 MG TABLET 20 t* 0 10/01/2017 10/11/2017 Route: ORAL Sig: Take 1 tablet by mouth twice daily for 10 days. FLUTICASONE 50 MCG/ACTUATION NASAL S* 1 Grupo* 1 10/01/2017 Route: EACH NOSTRIL Sig: Use 2 Sprays in each nostril once daily. Rinse mouth after use. Encounter Status:Closed by LOBO CHO CNP on 10/01/17 PROGRESS Observed: 08/04/2017 Status: COMPLETED Source: [place] 3:31 PM [facility] REPOSITORY HNO ID: [id number] Author: Jaqueline (Lv) [place] Service: (none) Author Type: Nurse Practitioner Type: Progress Notes Filed: 08/04/2017 4:12 PM Note Text: Subjective HPI Leidy Dc is a 46 year old male who presents with cough, wheezing and aching for the past 24 hours. His is ill with similar symptoms. He has taken ibuprofen and nyquil at home. He has not had a fever. Review of Systems Constitutional: Positive for malaise/fatigue. Negative for chills and fever. HENT: Positive for congestion. Negative for ear pain and sore throat. Respiratory: Positive for cough. Negative for sputum production and shortness of breath. Cardiovascular: Negative. Negative for chest pain. Gastrointestinal: Negative. Negative for abdominal pain, diarrhea, nausea and vomiting. Skin: Negative. Negative for rash. Neurological: Positive for headaches. Negative for dizziness. BP 136/88 Pulse 92 Temp 36.6 ?C (97.8 ?F) (Tympanic) Resp 18 Wt 107.5 kg (237 lb) SpO2 95% BMI 29.62 kg/m2 PAST MEDICAL HISTORY Diagnosis Date - Aortic dissection, ascending 03/08/2011 - CAD (coronary artery disease) SVG to RCA - HTN (hypertension) 02/13/2016 - Hyperlipidemia 03/13/2011 - Marfan's syndrome 2010 2010: s/p Niels's procedures, ascending aorta AND arch repair w 28 mm Dacron graft, frozen elephant trunk procedure w direct placement of a 34 mm x 10 cm Exira-Tag thoracic stent graft - S/P mitral valve repair 2010 plication of the anterior leaflet and right axillary aortic cannulation with an 8 mm graft PAST SURGICAL HISTORY Procedure Laterality Date - ASCENDING AORTIC GRAFT 03/08/2011 Emergent. Valve sparing aortic root replacement . Aortic valve (Niels's procedure) with 32-mm Valsalva Dacron graft, reconstruction of the RCA, CABGx1 (SVG-RCA), ascending aorta and arch repair with 28- mm Dacron graft, frozen elephant trunk procedure 34 mm x 10 ccm Exira-Tag thoracic stent graft, mitral valve repair with with plication of the anterior leaflet and right axillary aortic cannulation - PAST SURGICAL HISTORY OF right hand surgery after saw injury (lost index finger) - PAST SURGICAL HISTORY OF toe surgery after injury; also hammer toe surgery - PAST SURGICAL HISTORY OF CABGx1 - TONSILLECTOMY HX ALLERGIES Bactrim [Sulfamethoxazole-Trimethoprim]; Ciprofloxacin; Tramadol MEDICATIONS RABEprazole (ACIPHEX) 20 mg tablet Take 20 mg by mouth once daily. albuterol HFA (VENTOLIN HFA) 90 mcg/actuation inhaler Inhale 2 Puffs as instructed every 4 hours as needed for Wheezing/Shortness of Breath. losartan (COZAAR) 100 mg tablet Take 100 mg by mouth once daily. cloNIDine HCl (CATAPRES) 0.1 mg tablet Take 0.1 mg by mouth three times daily. pregabalin (LYRICA) 150 mg capsule Take 150 mg by mouth twice daily. ALBUTEROL INHALATION Inhale as instructed as needed. atorvastatin (LIPITOR) 80 mg tablet Take 1 tablet by mouth daily at bedtime. metoprolol succinate ER (TOPROL XL) 100 mg Tb24 Take 1 tablet by mouth once daily. aspirin, enteric coated (ADULT LOW DOSE ASPIRIN) 81 mg ORAL EC tablet Take 1 tablet by mouth once daily. predniSONE (DELTASONE) 20 mg tablet Prednisone 40 mg (2-20mg tablets) po QD for 5 days benzonatate (TESSALON PERLE) 100 mg capsule Take 1 capsule by mouth three times daily as needed. oxyCODONE-acetaminophen (PERCOCET) 5-325 mg tablet Take 1 tablet by mouth every 4 hours as needed. NIFEdipine XL (ADALAT CC,PROCARDIA XL) 90 mg 24 hr tablet Take 1 tablet by mouth once daily. omeprazole (PRILOSEC) 20 mg capsule Take 40 mg by mouth once daily. FAMILY HISTORY Problem Relation Age of Onset - Marfan's syndrome [OTHER] Child 2 children with Marfans' - Heart Paternal Uncle had heart failure at age 48 - Ischemic Heart Disease Paternal Grandfather age 60s, [place] - Ischemic Heart Disease Maternal Grandfather age 80s,. strokes, MIs - Hypertension Father Social History Substance Use Topics - Smoking status: Never Smoker - Smokeless tobacco: Never Used - Alcohol use No Objective Physical Exam Constitutional: He is well-developed, well-nourished, and in no distress. HENT: Head: Normocephalic. Right Ear: Tympanic membrane, external ear and ear canal normal. Left Ear: Tympanic membrane, external ear and ear canal normal. Nose: Nose normal. No rhinorrhea. Mouth/Throat: Uvula is midline, oropharynx is clear and moist and mucous membranes are normal. No posterior oropharyngeal edema or posterior oropharyngeal erythema. Eyes: Conjunctivae are normal. Right eye exhibits no discharge. Left eye exhibits no discharge. Neck: Neck supple. Cardiovascular: Normal rate, regular rhythm and normal heart sounds. No murmur heard. Pulmonary/Chest: Effort normal and breath sounds normal. Neurological: He is alert. Skin: Skin is warm and dry. No rash noted. Nursing note and vitals reviewed. ASSESSMENT/PLAN: 1. Viral URI with cough - ICD9: 465.9, ICD10: J06.9, B97.89 - Discussed viral etiology and rationale for treatment. - Symptomatic treatment with prn analgesia - Supportive care with fluids and rest - The patient may also use Mucinex. - BENZONATATE 100 MG CAPSULE - Follow-up with your PCP in 3-5 days if symptoms have not improved or sooner if symptoms worsen - Discussed red flags and need for immediate medical evaluation if any occur. - Discussed supportive care treatment with fluids, rest and analgesia. - Discussed expected course of illness Jaqueline Moise APRN.LV CNOV Observed: 08/04/2017 Status: COMPLETED Source: [place] 3:15 PM [facility] REPOSITORY Office Visit ([facility]) LEIDY DC ([id number]) 1970 M Date Time Provider Department 08/04/17 3:15 PM JAQUELINE MOISE (LV) [facility] During your visit today, we recorded the following information about you: Temperature Pulse Respiration Blood pressure 97.8 degrees 92/minute 18/minute 136/88 Weight 107.5 kg Jaqueline Moise APRN.CNP 08/04/2017 4:12 PM Signed Subjective HPI Leidy Dc is a 46 year old male who presents with cough, wheezing and aching for the past 24 hours. His is ill with similar symptoms. He has taken ibuprofen and nyquil at home. He has not had a fever. Review of Systems Constitutional: Positive for malaise/fatigue. Negative for chills and fever. HENT: Positive for congestion. Negative for ear pain and sore throat. Respiratory: Positive for cough. Negative for sputum production and shortness of breath. Cardiovascular: Negative. Negative for chest pain. Gastrointestinal: Negative. Negative for abdominal pain, diarrhea, nausea and vomiting. Skin: Negative. Negative for rash. Neurological: Positive for headaches. Negative for dizziness. BP 136/88 Pulse 92 Temp 36.6 ?C (97.8 ?F) (Tympanic) Resp 18 Wt 107.5 kg (237 lb) SpO2 95% BMI 29.62 kg/m2 PAST MEDICAL HISTORY Diagnosis Date - Aortic dissection, ascending 03/08/2011 - CAD (coronary artery disease) SVG to RCA - HTN (hypertension) 02/13/2016 - Hyperlipidemia 03/13/2011 - Marfan's syndrome 2010 2011: s/p Niels's procedures, ascending aorta ANDamp; arch repair w 28 mm Dacron graft, frozen elephant trunk procedure w direct placement of a 34 mm x 10 cm Exira-Tag thoracic stent graft - S/P mitral valve repair 2010 plication of the anterior leaflet and right axillary aortic cannulation with an 8 mm graft PAST SURGICAL HISTORY Procedure Laterality Date - ASCENDING AORTIC GRAFT 03/08/2011 Emergent. Valve sparing aortic root replacement . Aortic valve (Niels's procedure) with 32-mm Valsalva Dacron graft, reconstruction of the RCA, CABGx1 (SVG-RCA), ascending aorta and arch repair with 28-mm Dacron graft, frozen elephant trunk procedure 34 mm x 10 ccm Exira-Tag thoracic stent graft, mitral valve repair with with plication of the anterior leaflet and right axillary aortic cannulation - PAST SURGICAL HISTORY OF right hand surgery after saw injury (lost index finger) - PAST SURGICAL HISTORY OF toe surgery after injury; also hammer toe surgery - PAST SURGICAL HISTORY OF CABGx1 - TONSILLECTOMY HX ALLERGIES Bactrim [Sulfamethoxazole-Trimethoprim]; Ciprofloxacin; Tramadol MEDICATIONS RABEprazole (ACIPHEX) 20 mg tablet Take 20 mg by mouth once daily. albuterol HFA (VENTOLIN HFA) 90 mcg/actuation inhaler Inhale 2 Puffs as instructed every 4 hours as needed for Wheezing/Shortness of Breath. losartan (COZAAR) 100 mg tablet Take 100 mg by mouth once daily. cloNIDine HCl (CATAPRES) 0.1 mg tablet Take 0.1 mg by mouth three times daily. pregabalin (LYRICA) 150 mg capsule Take 150 mg by mouth twice daily. ALBUTEROL INHALATION Inhale as instructed as needed. atorvastatin (LIPITOR) 80 mg tablet Take 1 tablet by mouth daily at bedtime. metoprolol succinate ER (TOPROL XL) 100 mg Tb24 Take 1 tablet by mouth once daily. aspirin, enteric coated (ADULT LOW DOSE ASPIRIN) 81 mg ORAL EC tablet Take 1 tablet by mouth once daily. predniSONE (DELTASONE) 20 mg tablet Prednisone 40 mg (2-20mg tablets) po QD for 5 days benzonatate (TESSALON PERLE) 100 mg capsule Take 1 capsule by mouth three times daily as needed. oxyCODONE-acetaminophen (PERCOCET) 5-325 mg tablet Take 1 tablet by mouth every 4 hours as needed. NIFEdipine XL (ADALAT CC,PROCARDIA XL) 90 mg 24 hr tablet Take 1 tablet by mouth once daily. omeprazole (PRILOSEC) 20 mg capsule Take 40 mg by mouth once daily. FAMILY HISTORY Problem Relation Age of Onset - Marfan's syndrome [OTHER] Child 2 children with Marfans' - Heart Paternal Uncle had heart failure at age 48 - Ischemic Heart Disease Paternal Grandfather age 60s, [place] - Ischemic Heart Disease Maternal Grandfather age 80s,. strokes, MIs - Hypertension Father Social History Substance Use Topics - Smoking status: Never Smoker - Smokeless tobacco: Never Used - Alcohol use No Objective Physical Exam Constitutional: He is well-developed, well-nourished, and in no distress. HENT: Head: Normocephalic. Right Ear: Tympanic membrane, external ear and ear canal normal. Left Ear: Tympanic membrane, external ear and ear canal normal. Nose: Nose normal. No rhinorrhea. Mouth/Throat: Uvula is midline, oropharynx is clear and moist and mucous membranes are normal. No posterior oropharyngeal edema or posterior oropharyngeal erythema. Eyes: Conjunctivae are normal. Right eye exhibits no discharge. Left eye exhibits no discharge. Neck: Neck supple. Cardiovascular: Normal rate, regular rhythm and normal heart sounds. No murmur heard. Pulmonary/Chest: Effort normal and breath sounds normal. Neurological: He is alert. Skin: Skin is warm and dry. No rash noted. Nursing note and vitals reviewed. ASSESSMENT/PLAN: 1. Viral URI with cough - ICD9: 465.9, ICD10: J06.9, B97.89 - Discussed viral etiology and rationale for treatment. - Symptomatic treatment with prn analgesia - Supportive care with fluids and rest - The patient may also use Mucinex. - BENZONATATE 100 MG CAPSULE - Follow-up with your PCP in 3-5 days if symptoms have not improved or sooner if symptoms worsen - Discussed red flags and need for immediate medical evaluation if any occur. - Discussed supportive care treatment with fluids, rest and analgesia. - Discussed expected course of illness RITESH Redmond APRN.CNP 08/04/2017 3:41 PM Signed Treatment for Viral Upper Respiratory Tract Infections Your body will kill off the virus by itself. Additionally, you can prime your body's immune system. This may help you get better more quickly. 1. Drink lots of fluids - at least one gallon of non-caffeinated liquids per day 2. Make sure you are eating well 3. Get plenty of rest - at least 8 hours of sleep per night for adults and more for children We do not have any medications that kill off these viruses. Antibiotics are used to treat bacterial infections; however, they are not active against viral infections. There are some things that might help you feel better, though. 1. Vaporizers, humidifiers, hot showers, and hot fluids help open respiratory and sinus passages 2. Sudafed is a safe and effective decongestant 3. [place] Nasal [place] may offer relief of nasal and head congestion 4. Manuel's Vapor Rub placed on a hot towel and draped over the head may relieve congestion 5. Tylenol and Advil help control fevers and headaches 6. Salt water gargles help relieve sore throats 7. Chloraceptic spray or throat lozenges may also help relieve sore throat symptoms 8. Robitussin DM will help loosen up secretions and also provide relief from a cough Occasionally, viral infections turn into something more serious. You should see your doctor or return to the Urgent Care if: 1. You have fevers for longer than five days 2. You have fevers above 102 degrees 3. You are still sick after 10 days 4. You have shortness of breath or wheezing 5. After several days you are getting worse rather than better Referring Provider: SELF [200] Allergies As of Date: 08/04/2017 Noted Allergy Reaction BACTRIM (SULFAMETHOXAZOLE-TRIMETH*04/14/2015 4 - Hives CIPROFLOXACIN 04/12/2015 4 - Hives TRAMADOL 11/27/2016 2 - Rash Date Reviewed: 08/04/2017 Reviewed by: Jaqeuline ([facility]) [place] - Fully Assessed Reason for Visit: Cough [28] Cmt: wheezing, bodyaches x 24 hours Primary Visit Diagnosis:Viral URI with cough [J06.9, B97.89] Order(s):benzonatate (TESSALON PERLE) 100 mg capsuleTake 2 capsules by mouth three times daily as needed for Cough.Disp: 60 capsuleRfl: 0 Prescriptions as of 08/04/2017 Sig: RABEPRAZOLE 20 MG TABLET,TRACI* Take 20 mg by mouth once usha* ALBUTEROL SULFATE HFA 90 MCG/* Inhale 2 Puffs as instructed * LOSARTAN 100 MG TABLET Take 100 mg by mouth once corrina* CLONIDINE HCL 0.1 MG TABLET Take 0.1 mg by mouth three ti* PREGABALIN 150 MG CAPSULE Take 150 mg by mouth twice da* ALBUTEROL INHALATION Inhale as instructed as need* ATORVASTATIN 80 MG TABLET Take 1 tablet by mouth daily * METOPROLOL SUCCINATE ER 100 M* Take 1 tablet by mouth once d* ASPIRIN 81 MG TABLET,DELAYED * Take 1 tablet by mouth once d* BENZONATATE 100 MG CAPSULE Take 2 capsules by mouth thre* Medication notes this encounter PREDNISONE 20 MG TABLET >> Nhi Holm Ma 08/04/2017 3:20 PM >> NHI HOLM MA Aug 04, 2017 3:20 PM done BENZONATATE 100 MG CAPSULE >> Nhi Holm Ma 08/04/2017 3:20 PM >> NHI HOLM MA Aug 04, 2017 3:20 PM done NIFEDIPINE ER 90 MG TABLET,EXTENDED RELEASE >> Nhi Holm Ma 08/04/2017 3:20 PM >> NHI HOLM MA Aug 04, 2017 3:20 PM done OMEPRAZOLE 20 MG CAPSULE,DELAYED RELEASE >> Nhi Holm Ma 08/04/2017 3:20 PM >> NHI HOLM MA Aug 04, 2017 3:20 PM done Problem List As Of Date 08/04/2017 Noted Resolved SUMMARY [V999.95] INVALID FOR*03/17/2011 Priority: A More... Aortic dissection, ascending [I71.00] INVALID FOR*02/13/2016 Priority: Very Severe More... Marfan syndrome [Q87.40] INVALID FOR*03/18/2011 Priority: C More... More... pulm insuff/ FVO [RVH9775] INVALID FOR*02/13/2016 Priority: B More... Fluid overload [E87.70] INVALID FOR*03/17/2011 Priority: F More... Stress hyperglycemia [R73.9] INVALID FOR*03/13/2011 Priority: E More... Sinus tachycardia [R00.0] INVALID FOR*03/17/2011 Priority: B More... Pain [R52] INVALID FOR*11/27/2016 Priority: D More... Leukocytosis [D72.829] INVALID FOR*03/13/2011 Priority: I More... CAD [I25.10] INVALID FOR*11/27/2016 Priority: A More... Thrombocytopenia [D69.6] INVALID FOR*03/14/2011 Priority: H More... More... Acute blood loss anemia-postoperative [D62] INVALID FOR*03/16/2011 Priority: C More... Depressed state [F32.9] INVALID FOR*03/17/2011 Priority: K More... Hyperlipidemia [E78.5] INVALID FOR*02/13/2016 Priority: F More... Bleeding nose [R04.0] INVALID FOR*03/16/2011 Priority: E More... Leukocytosis [D72.829] INVALID FOR*03/18/2011 Priority: B More... Pericardial effusion [I31.3] INVALID FOR*02/13/2016 Priority: A More... Marfan syndrome [Q87.40] INVALID FOR* S/P thoracic aortic aneurysm repair [Z98.890, Z*INVALID FOR* Angina at rest (HCC) [I20.8] INVALID FOR*11/27/2016 More... GERD (gastroesophageal reflux disease) [K21.9] INVALID FOR* More... HTN (hypertension) [I10] INVALID FOR* More... Marfan's syndrome [Q87.40] More... S/P mitral valve repair [Z98.890] More... 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 Additionally, you can prime your body's immune system. This may help you get better more quickly. 1. Drink lots of fluids - at least one gallon of non-caffeinated liquids per day 2. Make sure you are eating well 3. Get plenty of rest - at least 8 hours of sleep per night for adults and more for children We do not have any medications that kill off these viruses. Antibiotics are used to treat bacterial infections; however, they are not active against viral infections. There are some things that might help you feel better, though. 1. Vaporizers, humidifiers, hot showers, and hot fluids help open respiratory and sinus passages 2. Sudafed is a safe and effective decongestant 3. [place] Nasal [place] may offer relief of nasal and head congestion 4. Manuel's Vapor Rub placed on a hot towel and draped over the head may relieve congestion 5. Tylenol and Advil help control fevers and headaches 6. Salt water gargles help relieve sore throats 7. Chloraceptic spray or throat lozenges may also help relieve sore throat symptoms 8. Robitussin DM will help loosen up secretions and also provide relief from a cough Occasionally, viral infections turn into something more serious. You should see your doctor or return to the Urgent Care if: 1. You have fevers for longer than five days 2. You have fevers above 102 degrees 3. You are still sick after 10 days 4. You have shortness of breath or wheezing 5. After several days you are getting worse rather than better Prescriptions ordered this encounter Disp Refills Start End BENZONATATE 100 MG CAPSULE 60 c* 0 08/04/2017 Route: ORAL Sig: Take 2 capsules by mouth three times daily as needed for Cough. Medications Discontinued During This Encounter predniSONE (DELTASONE) 20 mg tablet 10 t* 0 04/03/2017 08/04/2017 Sig: Prednisone 40 mg (2-20mg tablets) po QD for 5 days Disc: Reason for discontinue is not on file. benzonatate (TESSALON PERLE) 100 mg * 30 c* 0 04/03/2017 08/04/2017 Route: ORAL Sig: Take 1 capsule by mouth three times daily as needed. Disc: Reason for discontinue is not on file. oxyCODONE-acetaminophen (PERCOCET) 5* 08/04/2017 Class: Historical Med Route: ORAL Sig: Take 1 tablet by mouth every 4 hours as needed. Disc: Reason for discontinue is not on file. NIFEdipine XL (ADALAT CC,PROCARDIA X* 30 t* 0 06/01/2015 08/04/2017 Class: Print RX Cmt: No future refills from until patient is seen. Route: ORAL Sig: Take 1 tablet by mouth once daily. Disc: Reason for discontinue is not on file. omeprazole (PRILOSEC) 20 mg capsule 08/04/2017 Class: Historical Med Route: ORAL Sig: Take 40 mg by mouth once daily. Disc: Reason for discontinue is not on file. Encounter Status:Closed by JAQUELINE MOISE on 08/04/17 URINE DRUG SCREEN Collected: 07/14/2017 Status: F Source: [place] (VISTA) 12:30 PM [facility] REPOSITORY Order Comment: Comments: URINE TOXOCOLOGY List of Drugs Taken or Suspected? UNK TYPE CODE TESTS RESULT OUT OF RANGE REFERENCE UNITS LAB L505.0075 TO BE Normal CONFIRMED Result Comment: CONFIRMATORY TESTING FOR ALL POSITIVE URINE DRUG SCREEN RESULTS WILL ONLY BE SENT OUT UPON PHYSICIAN ORDER. VISTA Urine Drug Screen methods provide only preliminary analytical test results. A more specific alternate chemical method must be used in order to obtain a confirmed analytical result. Gas chromatography/mass spectrometery (GC/MS) is the preferred confirmatory method. Clinical consideration and professional judgement should be applied to any drug of abuse test result, particularly when preliminary positive results are used. URINE TCA TESTING MUST BE ORDERED SEPARATELY. USE TEST MNEMONIC: [facility] LAB L505.5005 VISTA UDS PH 6 Normal LAB L505.5015 <1000 ng/mL AMPHETAMINES Normal NEGATIVE LAB L505.5025 < 200 ng/mL BARBITIURATES Normal NEGATIVE LAB L505.5035 < 200 ng/mL BENZODIAZIPINE Normal NEGATIVE LAB L505.5045 < 300 ng/mL COCAINE Normal NEGATIVE LAB L505.5055 < 500 ng/mL ECSTACY Normal NEGATIVE LAB L505.5065 < 300 ng/mL METHADONE Normal NEGATIVE LAB L505.5075 < 300 ng/mL OPIATES Normal NEGATIVE LAB L505.5085 < 25 ng/mL PCP Normal NEGATIVE LAB L505.5095 < 50 ng/mL THC Normal NEGATIVE Performed By: #### L505.5000 #### [facility] [address] [place], [address] MISCELLANEOUS LAB Collected: 07/14/2017 Status: F Source: [place] PROCEDURE 12:30 PM [facility] REPOSITORY Order Comment: Comments: URINE TOXOCOLOGY Test(s) Ordered: [id number] urine toxocology run lowest test TYPE CODE TESTS RESULT OUT OF RANGE REFERENCE UNITS LAB L801.1541 Normal [facility] TEST Result Comment: TEST RESULT UNITS REF INTERVAL [id number] 6+Oxycodone-Bund Amphetamines, Urine Negative ng/mL Wjodat=2319 Amphetamine test includes Amphetamine and Methamphetamine. Barbiturate Negative ng/mL Bukqhp=396 Benzodiazepines Negative ng/mL Jwoyxk=351 Cannabinoids Negative ng/mL Cutoff=20 Cocaine (Metabolite) Negative ng/mL Yhkoai=273 Opiates Negative ng/mL Sypvtm=280 Opiate test includes Codeine, Morphine, Hydromorphone, Hydrocodone. Oxycodone/Oxymorph Negative Yebwqk=425 Test includes Oxycodone and Oxymorphone TESTING PERFORMED AT [facility]. ORIGINAL REPORT ON FILE IN LAB CONTAINS ADDITIONAL TEST SITE INFORMATION. Performed By: #### L801.1541 #### [facility] [place], [address] ALLERGIES ALLERGIES DATE TYPE / CODE NAME / CODE REACTION SEVERITY SOURCE 04/08/2018 Drug ciprofloxacin Rash Unknown [place] Allergy/416 HCl/[id number](RXNO Community 378097([facility] ED CT) Repository 04/08/2018 Drug sulfamethoxazole/F0 Rash Unknown [place] Allergy/416 83012504(RXNORM) Community 197970([facility] ED CT) Repository 04/08/2018 Drug trimethoprim/Y11993 Rash Unknown [place] Allergy/416 2873(RXNORM) Community 457341([facility] ED CT) Repository 04/08/2018 Drug ciprofloxacin/F0060 Rash Unknown [place] Allergy/416 79246(RXNORM) Community 913926([facility] ED CT) Repository 04/08/2018 Drug tramadol/[id number] Itching Unknown [place] Allergy/416 (RXNORM) Community 687088([facility] ED CT) Repository 11/27/2016 DRUG TRAMADOL RASH [facility] INGREDI/419 [facility] 272260(SNOM Repository ED CT) 04/14/2015 DRUG/[id number] SUL[facility]LE-TR [facility] 003(SNOMED IMETHOPRIM [address] [place] [address]) Repository 04/12/2015 DRUG C[facility]FLOXACIN [facility] INGREDI/419 [facility] [place] 954214([facility] Repository ED CT) ENCOUNTERS ENCOUNTERS ADMIT/DISCHARGE ACCOUNT ADMITTING ENCOUNTER LOCATION SOURCE NUMBER CLASS 05/20/2018/05/22/19 [id number] CHRIS ALEXANDER Inpatient [place] [address] R Encounter [facility] Repository 05/19/2018/05/20/19 [id number] Emergency [address] ing:ED Repository 04/08/2018/04/08/20 [id number] Emergency [address] ing:ED Repository 02/22/2018/02/23/20 [id number] Emergency [address] ing:ED Repository 12/01/2017 [id number] [facility] ing:LAB Repository 10/01/2017/10/03/19 [id number] Ambulatory [address] Repository 08/04/2017/08/06/19 [id number] Ambulatory [address] Repository 07/14/2017 [id number] [facility] ing:LAB Repository PAYERS PAYERS ENCOUNTER GUARANTOR PAYER SUBSCRIBER SOURCE 05/19/2018 LEIDY AREVALO5 Primary LEIDY MAZA Insurance:MEDICARE NOLTDOB: [place] PART A [facility] [id number] [id number]: Number: Repository [id number] (HP) Date:2018-05-19 05/19/2018 Secondary LEIDY Martinez Insurance:MEDICAIDPol NOLTDOB: [facility] Number: [id number] [id number] Repository Date:2018-05-19 05/19/2018 Tertiary NOT GIVENUNK [place] Insurance:SELF PAY [facility] Number: Effective Repository Date:2018-05-19 04/08/2018 LEIDY HOLT655 Primary LEIDY Maza Insurance:MEDICARE NOLTDOB: [place], [place] PART A [facility] [id number]9764Tel: Number: Repository [id number] (HP) Date:2018-04-08 04/08/2018 Secondary LEIDY Martinez Insurance:MEDICAIDPol NOLTDOB: [facility] Number: [id number] Hospital [id number] Repository Date:2018-04-08 04/08/2018 Tertiary NOT GIVENUNK [place] Insurance:SELF PAY [facility] Number: Effective Repository Date:2018-04-08 02/22/2018 LEIDY HOLT655 Primary LEIDY L [place] Insurance[place] [id number] [id number]: ADVANTAPolicy Number: Repository [id number] (HP) Date:[id number] [place] [address] 13092IG: 02/22/2018 Secondary LEIDY L [place] Insurance:MEDICAIDPol NOLTDOB: [facility] Number: [id number] Hospital [id number] Repository Date:2018-02-22 02/22/2018 Tertiary NOT GIVENUNK [place] Insurance:SELF PAY [facility] Number: Effective Repository Date:2018-02-22 12/01/2017 LEIDY HOLT655 Primary LEIDY Martinez [place] Insurance:[place] [id number] [id number]: ADVANTAPolicy Number: Repository [id number] (HP) Date:[id number] [place] [address] 97692LS: 12/01/2017 Secondary LEIDY L [place] Insurance:MEDICAIDPol NOLTDOB: [facility] Number: [id number] Hospital [id number] Repository Date:2017-12-01 12/01/2017 Tertiary NOT GIVENUNK [place] Insurance:SELF PAY [facility] Number: Effective Repository Date:2017-12-01 07/14/2017 LEIDY Tompkins [id number] Primary LEIDY [place] Insurance:MEDICARE NOLTDOB: [place] PART A BPolicy [id number] [place]ille [id number]: Number: Repository [id number] (HP) Date:2017-07-14 07/14/2017 Secondary LEIDY L [place] Insurance:[facility] NOLTDOB: [facility] [id number] Hospital Number: Repository [id number] Date:[id number] [place] [address]YR: 07/14/2017 Tertiary NOT GIVENUNK [place] Insurance:SELF PAY [facility] Number: Effective Repository Date:2017-07-14
== END 2018-05-20 03:23 | disposition short-term general hospital (02) ==
PROVIDERS: Emergency Provider Emergency Medicine; Family Provider Internal Medicine; PCP Internal Medicine
DX: I77.74 Dissection of vertebral artery (principal); G81.94 Hemiplegia, unspecified affecting left nondominant side; I16.0 Hypertensive urgency; E87.6 Hypokalemia; Q87.40 Marfan syndrome, unspecified; R07.81 Pleurodynia; Z79.82 Long term (current) use of aspirin; Z79.899 Other long term (current) drug therapy; F17.200 Nicotine dependence, unspecified, uncomplicated; Z95.1 Presence of aortocoronary bypass graft
CPT/HCPCS: 70450; 70496; 70498; 71045; 80048; 82962; 84484; 85025; 85610; 85730; 93005; 96361; 96374; 96375; 96376; 99285; J7030; J7040; Q9967; A4216

== ENCOUNTER → 2018-06-26 10:35 | Outpatient (CLI) | payer MEDICARE, SELFPAY ==
[2018-05-19 16:58] VITALS: BMI 28.0
--- NOTE | 2018-06-26 10:58 | RAD_ITS ---
STUDY: X-RAY - LUMBAR SPINE REASON FOR EXAM: Male, 47 years old. Chronic back pain TECHNIQUE: 5 view(s) of the lumbar spine were obtained. COMPARISON: 04/16/2017 FINDINGS: Normal lumbar lordosis. There is no substantial scoliosis. There is a normal alignment of the vertebrae. Anterior spondylosis with disc space narrowing at L1-L2 and L2-L3 similar since 2017. Remaining disc spaces remain preserved. Mild degree of facet arthropathy at L5-S1 bilaterally. There is no demonstrated fracture. There is no demonstrated spondylolysis of the pars interarticulares. The soft tissue structures are unremarkable. RAD/L/S Spine Min 4 Views IMPRESSION: Similar degenerative changes since 2017. Electronically Signed: John Belle MD at 13:34 EST , Service support ,
== END ==
PROVIDERS: Family Provider Internal Medicine; PCP Internal Medicine; Referring Provider Nurse Practitioner Family; Visit Provider Nurse Practitioner Family
DX: M54.9 Dorsalgia, unspecified (principal)
CPT/HCPCS: 72110

== ENCOUNTER 2020-08-03 06:08 | Emergency (ER) | payer OTHER, MEDICARE, SELFPAY ==
[2018-05-19 16:58] VITALS: BMI 28.0
[2020-08-03 06:10] VITALS: BP 216/117; PULSE 82; RESP 18; TEMP 36.6; O2SAT 98; BMI 29.4
--- NOTE | 2020-08-03 06:15 | EKG12_ITS ---
Test Reason : CP Blood Pressure : / mmHG Vent. Rate : 082 BPM Atrial Rate : 082 BPM P-R Int : 188 ms QRS Dur : 130 ms QT Int : 400 ms P-R-T Axes : 029 -07 104 degrees QTc Int : 467 ms Normal sinus rhythm Possible Left atrial enlargement Left ventricular hypertrophy with QRS widening and repolarization abnormality Cannot rule out Inferior infarct , age undetermined Abnormal ECG Confirmed by KAILASH HARRIS, BETTY ([id number]), editor publications REYES PIEDRA ([id number]) on 08/08/2020 8:02:14 AM Referred By: MO Confirmed By:BETTY LINDER MD
[2020-08-03 06:17] VITALS: BP 192/113
--- NOTE | 2020-08-03 06:23 | CT_ITS ---
STUDY: CT BRAIN WITHOUT CONTRAST REASON FOR EXAM: Male, 49 years old. Headaches. TECHNIQUE: Transaxial CT imaging of the brain was performed without administration of intravenous contrast material. Individualized dose optimization techniques were used for this CT. COMPARISON: 05/19/2018 CT brain. FINDINGS: No evidence of intracranial hemorrhage, mass, infarct or hydrocephalus. No skull fracture. Mild paranasal sinus mucosal thickening. Visualized extracranial soft tissues unremarkable. ASPECTS [address]/Brain/Head without Contrast IMPRESSION: Negative CT brain without contrast. Electronically Signed: Gilmar Ortiz MD at 7:27 EDT Tel , Service support ,
--- NOTE | 2020-08-03 06:23 | CT_ITS ---
STUDY: CTA CHEST REASON FOR EXAM: Male, 49 years old. Chest pain. RADIATION DOSAGE (If Supplied By Facility): CTDIvol = ( 26.29 ) mGy, DLP = ( 1245.89 ) mGycm TECHNIQUE: The examination was performed with the intravenous administration of IV 100mL Isovue-370. Post-processing of the angiographic images was performed, with MIP reconstructed images. Individualized dose optimization techniques were used for this CT. COMPARISON: 04/08/2018 CTA chest. FINDINGS: Heart and great vessels: No acute interval change in appearance of the thoracic aorta. Again demonstrated is sequela of previous reconstruction of the aortic root and ascending aorta, with stent graft in the proximal descending thoracic aorta. 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 No evidence of dissection or hemorrhage. Bypass grafts are also similar to prior. Left ventricular wall thickening is unchanged. Otherwise the cardiac chamber size is within normal limits. No pericardial effusion. The pulmonary arteries are not well opacified. Lungs, pleura: No pneumonia, edema, or acute abnormality in the lungs. No pleural effusion. No pneumothorax. Mediastinum: No adenopathy or mass or hematoma. Osseous:No fracture or acute osseous abnormality. Previous sternotomy. Chest wall: No concerning findings. Upper abdomen: No acute findings. CT/CTA Chest W/WO Contrast IMPRESSION: No acute findings. No significant change compared to 04/08/2018. 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 Left ventricular hypertrophy. Electronically Signed: Gilmar Ortiz MD at 7:37 EDT Tel , Service support ,
[2020-08-03 06:24] LABS: Absolute Neutrophil Count 4.2 X10^3/uL (2.0-7.7); Basophil# 0.09 X10^3/uL; Basophil% 1.2 % (0-1); Eosinophil# 0.76 X10^3/uL; Eosinophils% 10.1 % (0-5); Hematocrit 41.3 % (40-54); Hemoglobin 14.2 g/dL (13.0-16.5); Lymphocyte % 21.2 % (19-41); Mean Corp Hgb Conc 34.4 g/dL (32-36); Mean Corpuscular Hgb 30.2 pg (27.0-32.0); Mean Corpuscular Volume 87.9 fL (80-94); Monocyte% 11.9 % (0-10); NRBC Flagged by Analyzer 0 % (0-5); Neutrophil # 4.15 X10^3/uL (2.7-7.7); Neutrophil % 54.8 % (47-70); Platelet Count 281 K/mm3 (150-450); RBC Distribution Width CV 13.6 % (11.6-14.6); RBC Distribution Width SD 43.8 fl (35.1-43.9); White Blood Count 7.6 K/mm3 (4.4-11.0)
[2020-08-03] MEDS: Morphine 4 MG/ML Syringe IV ×2 (06:30→07:15)
--- NOTE | 2020-08-03 06:39 | ED.DCSUM_ITS ---
- ER Visit Summary Date of Service: 08/03/20 Chief Complaint: Chest pain History of Present Illness: The patient is a [address] 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 He has a history of Marfan syndrome. He reports that he had aortic root replacement with an endova scular stent placed in 2010. He also has a history of a vertebral artery dissection. Patient reports that yesterday afternoon he was moving a tub and had the onset of a left-sided chest pain that lasted approximately 30 minutes. Reports the pain was sharp and 8 out of 10 in severity. It made him vomit. Patient reports that approximately 7 PM last night he had the onset of a left- sided chest pain that has been a continuous pain that waxes and wanes. He describes this as sharp. Stated 10 worsened 7-10 currently. Is worsened by movement of his torso. Is relieved by remaining still. Reports he has been diaphoretic with this. He states that this is different than when he had his dissection. On review of systems patient also complains of a cough that began and upper abdominal pain that began yesterday. The abdominal pain is a dull pain is 5-10 severity. The cough is nonproductive. He denies any shortness of breath. Physical Examination: Vitals: 97.9, 216/117, 82, 18, 90% room air which is not hypoxic. General: Well-nourished and well-developed. Head: Normocephalic atraumatic. Neck: Supple, no lymphadenopathy. No JVD. Nontender. Cardiovascular: Regular rate and rhythm. 2 out of 6 systolic murmur. Respiratory: No respiratory distress. Clear to auscultation bilaterally. Chest is nontender. Abdominal: Soft, nontender, nondistended, normal bowel sounds. No guarding, rebound, or peritoneal signs. Back: Nontender. Extremities: Nontender, no edema. Skin: Normal color, no rash. Neurologic: Alert and oriented ?3. Cranial nerves II through XII are intact. Normal strength and sensation. Psych: Normal affect. Test Results: EKG is sinus at [address] changes. He also has LVH with repull changes. Is unchanged from 2019. CBC shows monocytes of 12. Chem- 7 shows a sodium 132, potassium 2.7, chloride 93, BUN 20, creatinine 1.96, glucose 128. Creatinine was 0.92?1.09 since 2017. Last potassium was 2.8 in [facility] 2019. Troponin 0 0.035. Clinical Impression(s) from Imaging Studies Brain CT 08/03/20 06:23 IMPRESSION: Negative CT brain without contrast. Electronically Signed: Gilmar Ortiz MD at 7:27 EDT Tel , Service support , Chest CTA 08/03/20 06:23 IMPRESSION: No acute findings. No significant change compared to 04/08/2018. 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 Left ventricular hypertrophy. Electronically Signed: Gilmar Ortiz MD at 7:37 EDT Tel , Service support , Emergency Department Course and Treatment: Patient had an IV placed. He was given morphine, Zofran, and labetalol IV. He was given aspirin p.o. repeat blood pressure is 170/104. He was given K-Dur p.o. He reports his pain is much improved. Blood pressure is now 166/95. Patient feels well and would like to go home. Treatment Plan: I had a prolonged discussion with the patient and his about his blood pressure medications. I suspect that the chlorthalidone is the source of his hypokalemia. He will be given a prescription for K-Dur. He is maxed on his losartan and carvedilol. We did discuss other potential antihypertensives and it sounds as though he has been tried on multiple medications and have been stopped. They are instructed to speak with Dr. Schafer and/or Dr. Edmonds today for further treatment of his blood pressure. He will be given a prescription for Percocet for pain. Return to the emergency department for any worsening symptoms. Disposition: To home in improved and stable condition. Impression: 1. Atypical chest pain. 2. Hypokalemia on chlorthalidone. 3. Renal insufficiency. 4. Hypertension. 5. History of Marfan's syndrome. This note was generated with [employer] software. It may contain incorrect words, spelling, and punctuation that were not noted in review of the chart prior to signing ED Disposition - Plan for ED Patient: Instructions: ED Chest Pain, Uncertain Cause, ED Hypertension, Established, ED Hypokalemia Prescriptions: Potassium Chloride Oral Tablet [K-Dur] 40 meq PO DAILY #10 tab Transmission Status: Pending to [facility] Oxycodone HCl/Acetaminophen [Percocet 5/325] 1 tablet PO Q6H PRN PRN 3 Days #12 tablet PRN Reason: Pain Transmission Status: Sent to [facility] Referrals: Rodo Edmonds MD [Primary Care Provider] - As soon as possible
[2020-08-03 06:50] LABS: Anion Gap 7 (5-15); BUN 22 mg/dL (7-18); BUN/Creat Ratio 11.2 RATIO (10-20); Calcium,Total 9.1 mg/dL (8.5-10.1); Chloride 93 mmol/L (98-107); Creatinine, Serum 1.96 mg/dL (0.70-1.30); EST Glomerular Filtration Rate 38 mL/min (>60); Est Glom Filt Rate - Afr Amer 47 mL/min (>60); Estimated Creatinine Clearance 54.74 ml/min; Glucose 128 mg/dL (74-106); Potassium 2.7 mmol/L (3.5-5.1); Sodium Level 132 mmol/L (136-145)
[2020-08-03] MEDS: Ondansetron 4 MG/2 ML Vial IV (06:50)
[2020-08-03] MEDS: Labetalol (Prefilled) 20 MG/4 ML IV (06:51)
[2020-08-03] MEDS: Aspirin 81 MG TAB.CHEW 324 MG PO (06:51)
[2020-08-03 06:55] VITALS: BP 176/102; PULSE 76; RESP 16
[2020-08-03] MEDS: Potassium Chloride Oral Tablet 20 MEQ 60 MEQ PO (07:15)
[2020-08-03] MEDS: 0.9% Normal Saline 1,000 ML 999 ML IV (07:15)
[2020-08-03 07:35] VITALS: BP 162/90; PULSE 65; RESP 22
[2020-08-03 08:18] VITALS: BP 163/99
== END 2020-08-03 08:21 | disposition home or self-care (01) ==
LOC: ED 07:02
PROVIDERS: Emergency Provider Emergency Medicine; PCP Family Medicine
DX: R07.89 Other chest pain (principal); I11.9 Hypertensive heart disease without heart failure; E87.6 Hypokalemia; N28.9 Disorder of kidney and ureter, unspecified; Q87.40 Marfan syndrome, unspecified; Z79.899 Other long term (current) drug therapy
CPT/HCPCS: 70450; 71275; 80048; 84484; 85025; 93005; 96361; 96374; 96375; 96376; 99284; J7030; Q9967; A4216; J2405

== ENCOUNTER → 2020-08-14 09:28 | Outpatient (CLI) | payer OTHER, MEDICARE, SELFPAY ==
[2020-08-14 08:24] VITALS: BMI 30.2
[2020-08-14 10:37] LABS: Anion Gap 5 (5-15); BUN 25 mg/dL (7-18); BUN/Creat Ratio 14.2 RATIO (10-20); Calcium,Total 8.5 mg/dL (8.5-10.1); Chloride 102 mmol/L (98-107); Creatinine, Serum 1.76 mg/dL (0.70-1.30); EST Glomerular Filtration Rate 44 mL/min (>60); Est Glom Filt Rate - Afr Amer 53 mL/min (>60); Glucose 124 mg/dL (74-106); Potassium 3.4 mmol/L (3.5-5.1); Sodium Level 138 mmol/L (136-145)
== END ==
PROVIDERS: PCP Family Medicine; Referring Provider Internal Medicine Cardiovascular Disease; Visit Provider Internal Medicine Cardiovascular Disease
DX: I10 Essential (primary) hypertension (principal)
CPT/HCPCS: 36415; 80048

== ENCOUNTER → 2020-08-15 14:01 | Outpatient (CLI) | payer OTHER, MEDICARE, SELFPAY ==
[2020-08-14 08:24] VITALS: BMI 30.2
--- NOTE | 2020-08-15 14:03 | ECHOCS_ITS ---
Reason For Study: HTN Procedure This was a 2D Doppler, Color Flow transthoracic echocardiogram. The study was technically difficult. Contrast injection was performed. Exam performed in department. Left Ventricle Normal LV size. Severe concentric left ventricular hypertrophy. Left ventricular systolic function is normal. The estimated ejection fraction is 70 %. Stage 1 diastolic dysfunction. No regional wall motion abnormalities noted. Right Ventricle Normal RV size. Normal systolic function. Atria The left atrium is moderately enlarged. Normal right atrium. Mitral Valve Normal mitral valve. Tricuspid Valve Normal tricuspid valve. Mild (1+) tricuspid valve insufficiency. Pulmonary artery systolic pressure is 36 mmHg. Aortic Valve Normal aortic valve. Trisinus/trileaflet aortic valve. Pulmonic Valve The pulmonic valve is not well visualized. Great Vessels Moderately dilated aortic root. The pulmonary artery is normal size. Normal inferior vena cava. Pericardium/Pleural No pericardial effusion. Medication 22 gauge I.V. with prn adaptor inserted into right arm. Diluted definity 3ml given slow IV push to enhance endocardial definition. MMode/2D Measurements & Calculations LVIDd: 5.1 cm IVSd: 2.3 cm Ao root diam: 4.1 cm LVIDs: 3.2 cm LVPWd: 2.4 cm LA dimension: 4.6 cm FS: 36.7 % LAV(MOD-bp): 80.1 ml LA A4 area: 26.1 cm2 RA A4 area: 13.1 cm2 LAV(MOD-bp) Indexed: 33.0 ml/m2 LAV(MOD-sp2): 66.3 ml LAV(MOD-sp4): 89.0 ml Time Measurements MV dec time: 0.31 sec Doppler Measurements & Calculations MV E max tu: 54.3 cm/sec Lat Peak E' Tu: 11.3 cm/sec Med Peak E' Tu: 7.3 cm/sec MV A max tu: 79.2 cm/sec E/E' lat: 4.8 E/E' med: 7.4 MV E/A: 0.68 MV V2 max: 81.5 cm/sec MV P1/2t max tu: 60.8 cm/sec Ao V2 max: 147.5 cm/sec MV max P.7 mmHg MV P1/2t: 80.0 msec Ao max P.7 mmHg MV V2 mean: 45.2 cm/sec MV dec slope: 222.7 cm/sec2 MV mean P.96 mmHg MV V2 VTI: 17.7 cm MVA(P1/2t): 2.7 cm2 LV V1 max: 101.3 cm/sec PA V2 max: 105.9 cm/sec TR max tu: 283.6 cm/sec LV V1 max P.2 mmHg TR max P.2 mmHg ECHO/Echo Complete W/ Contrast Interpretation Summary Normal LV size. Severe concentric left ventricular hypertrophy. Left ventricular systolic function is normal. The estimated ejection fraction is 70 %. Moderately dilated aortic root. Stage 1 diastolic dysfunction. Pulmonary artery systolic pressure is 36 mmHg. Contrast injection was performed. Ordering Physician: Eduard Rea Referring Physician: Rodo Edmonds Performed By: Syed King RCS
== END ==
PROVIDERS: PCP Family Medicine; Referring Provider Internal Medicine Cardiovascular Disease; Visit Provider Internal Medicine Cardiovascular Disease
DX: I25.10 Atherosclerotic heart disease of native coronary artery without angina pectoris (principal); I10 Essential (primary) hypertension
CPT/HCPCS: 93306; Q9957; A4216; C8929

== ENCOUNTER → 2020-12-05 08:00 | Outpatient (CLI) | payer OTHER, MEDICARE, SELFPAY ==
[2020-10-20 13:48] VITALS: BMI 30.2
[2020-12-05 08:45] LABS: Absolute Neutrophil Count 3.3 X10^3/uL (2.0-7.7); Basophil# 0.05 X10^3/uL; Basophil% 0.9 % (0-1); Eosinophil# 0.16 X10^3/uL; Eosinophils% 2.8 % (0-5); Hemoglobin 14.1 g/dL (13.0-16.5); Lymphocyte % 22.8 % (19-41); Mean Corp Hgb Conc 32.8 g/dL (32-36); Mean Corpuscular Hgb 29.7 pg (27.0-32.0); Mean Corpuscular Volume 90.7 fL (80-94); Mean Platelet Vol. 9.6 fl (6.2-12.0); Monocyte# 0.88 X10^3/uL; Monocyte% 15.4 % (0-10); NRBC Flagged by Analyzer 0 % (0-5); Neutrophil # 3.26 X10^3/uL (2.7-7.7); Neutrophil % 57.2 % (47-70); Platelet Count 317 K/mm3 (150-450); Red Blood Count 4.74 M/mm3 (4.6-6.2); White Blood Count 5.7 K/mm3 (4.4-11.0)
[2020-12-05 09:22] LABS: AST(SGOT) 27 U/L (15-37); Alanine Aminotransfer ALT/SGPT 46 U/L (16-61); Albumin, Serum 3.8 g/dL (3.2-5.0); Alkaline Phosphatase 59 U/L (45-117); Anion Gap 6 (5-15); BUN 21 mg/dL (7-18); BUN/Creat Ratio 13.7 RATIO (10-20); Calcium,Total 9.1 mg/dL (8.5-10.1); Chloride 99 mmol/L (98-107); Creatinine, Serum 1.53 mg/dL (0.70-1.30); EST Glomerular Filtration Rate 51 mL/min (>60); Est Glom Filt Rate - Afr Amer 62 mL/min (>60); Globulin 3.7 g/dL (2.2-4.2); Glucose 136 mg/dL (74-106); Potassium 3.6 mmol/L (3.5-5.1); Protein, Total 7.5 g/dL (6.4-8.2); Sodium Level 138 mmol/L (136-145)
[2020-12-05 09:38] LABS: BNP,B-Type NATRIURETIC PEPTIDE 44.9 pg/mL (0-100)
== END ==
PROVIDERS: PCP Family Medicine; Visit Provider Physician Assistant Medical
DX: R06.00 Dyspnea, unspecified (principal); E78.5 Hyperlipidemia, unspecified; I16.0 Hypertensive urgency; I77.74 Dissection of vertebral artery; I10 Essential (primary) hypertension; E87.5 Hyperkalemia; I71.01 Dissection of thoracic aorta; I71.2 Thoracic aortic aneurysm, without rupture; Q87.40 Marfan syndrome, unspecified; Z95.828 Presence of other vascular implants and grafts; Z95.1 Presence of aortocoronary bypass graft; Z98.890 Other specified postprocedural states
CPT/HCPCS: 36415; 80053; 83880; 85025

== ENCOUNTER → 2020-12-12 06:58 | Outpatient (CLI) | payer OTHER, MEDICARE, SELFPAY ==
[2020-10-20 13:48] VITALS: BMI 30.2
--- NOTE | 2020-12-12 09:59 | STRESSREP ---
Stress Test Report Date: 12-12-2020 Procedure: Pharmacologic stress nuclear imaging study Indications: Shortness of breath/dyspnea on exertion; abnormal ECG; CAD; CABG; status post aortic root replacement; status post mitral valve repair Consent: Per the patient Procedure: The patient underwent pharmacologic (Regadenoson 0.4mg ) evaluation with a peak heart rate of 94 beats per minute (55%predicted maximal heart rate) and a peak blood pressure of 152/80 mmHg. The baseline ECG demonstrated sinus rhythm; nonspecific ST/T wave abnormality. The peak pharmacologic ECG demonstrated continued nonspecific ST/T wave abnormality. [There were no cardiac dysrhythmias pretest, during pharmacologic infusion, or recovery]. [There was no complaint of chest discomfort during pharmacologic infusion or recovery]. The examination was discontinued secondary to completion of protocol. Impression: 1. Pharmacologic (Regadenoson) evaluation 2. Peak pharmacologic ECG with continued nonspecific ST/T wave abnormality. 3. [There were no cardiac dysrhythmias pretest, during pharmacologic infusion, or recovery]. 4. Nuclear images pending Myocardial perfusion imaging study: Technique: The patient was injected with 14.9 millicuries of technetium 99m Cardiolite and subsequently rest SPECT Cardiolite nuclear imaging was obtained in the horizontal long, vertical long, and short axis views. The patient underwent pharmacologic (Regadenoson) evaluation with a peak heart rate of 94 beats per minute (55% percent predicted maximal heart rate) and a peak blood pressure of 152/8 mmHg. The patient was injected with 45.0 millicuries of technetium 99m Cardiolite and subsequently stress SPECT Cardiolite nuclear imaging was obtained in the horizontal long, vertical long, and short axis views. A gated Cardiolite study at peak stress was obtained. Interpretation: Rest and stress SPECT Cardiolite nuclear imaging status post realignment, normalization, and attenuation correction demonstrate on preattenuation correction the appearance of subtle diminished tracer uptake in portions of the basal to mid inferior segments status post stress, which, on post attenuation correction appears to be improved and/or within normal limits. [There is end systolic thickening and brightening]. [The gated Cardiolite study demonstrates myocardial thickening and inward wall motion]. The reported LVEF is 44%. Impression: 1. Rest and stress SPECT her nuclear imaging preattenuation correction demonstrates post-rest myocardial perfusion changes concerning for an area of myocardial ischemia in portions of the basal to mid inferior segments which on post attenuation correction image appears to be improved and/or within normal limits-thus a discrepancy between the two image sets. 2. The gated Cardiolite study reports an LVEF of 44%. Comment: The aforementioned findings was discussed and reviewed with Dr. Ramirez who is participating in the patient's care. This note was generated with [employer] software. It may contain incorrect words, spelling, and punctuation that were not noted in checking the note before signing.
== END ==
PROVIDERS: PCP Family Medicine; Referring Provider Physician Assistant Medical; Visit Provider Physician Assistant Medical
DX: R06.09 Other forms of dyspnea (principal)
CPT/HCPCS: 78452; 93017; A9500; A4216; J2785

== ENCOUNTER → 2020-12-13 10:49 | Outpatient (CLI) | payer OTHER, MEDICARE, SELFPAY ==
[2020-10-20 13:48] VITALS: BMI 30.2
[2020-12-13 07:56] VITALS: BMI 30.2
--- NOTE | 2020-12-13 10:51 | US_ITS ---
STUDY: ABDOMINAL ULTRASOUND REASON FOR EXAM: Male, 50 years old. INTRA-ABD SWELLING TECHNIQUE: Transabdominal ultrasound was performed with real-time and static painter scale imaging. TECHNICAL QUALITY: Limited. Examination limited by bowel gas. COMPARISON: None. FINDINGS: Liver: The liver measures 16.4 cm. There is increased echogenicity consistent with fatty infiltration. The bile ducts are within normal limits. There is hepatic color flow. The direction of portal flow is hepatopetal. There is no demonstrated mass lesion. Portal vein measurement: Gallbladder: Normal distended gallbladder. The gallbladder wall is slightly thickened and measures 4.2 mm. There is a negative sonographic Parsons''s sign. There is no pericholecystic fluid. There are no gallstones. Common Bile Duct (C.B.D.): The common bile duct measures 5.2 mm. Pancreas: Normal size of the head, body and tail of the pancreas. There is increased echogenicity of the pancreas. There is no demonstrated pancreatic mass or cyst. Spleen: Normal size of the spleen. The spleen measures 13.1 cm x 6.4 cm x 5.3 cm. Right Kidney: Normal size of the right kidney. The right kidney measures 12.3 cm x 6.1 cm x 6.9 cm. Normal renal cortex. The right cortex measures 1.8 cm. There is a 1.1 cm x 0.9 cm x 0.9 cm cyst in the upper pole. There is no right hydronephrosis. Left Kidney: Normal size of the left kidney. The left kidney measures 12.3 cm x 5.1 cm x 6.2 cm. Normal renal cortex. The left cortex measures 1.6 cm. There is a 3.8 cm x 3.5 cm x 2 cm cyst in the lower pole. There is no left hydronephrosis. Aorta: Unremarkable. I.V.C.: The IVC is patent. There is no ascites. US/Abdomen Complete IMPRESSION: Fatty infiltration of the liver. Bilateral renal cysts. Electronically Signed: Man Andrade MD at 12:21 EDT , Service support ,
== END ==
PROVIDERS: PCP Family Medicine; Referring Provider Family Medicine; Visit Provider Family Medicine
DX: R19.00 Intra-abdominal and pelvic swelling, mass and lump, unspecified site (principal)
CPT/HCPCS: 76700

== ENCOUNTER 2020-12-14 07:41 | Day surgery (SDC) | payer OTHER, MEDICARE, SELFPAY ==
[2020-10-20 13:48] VITALS: BMI 30.2
[2020-12-13 07:56] VITALS: BMI 30.2
--- NOTE | 2020-12-14 08:18 | PCM.HP.BLA ---
History and Physical Date of Admission: 12/14/20 This is a 49-year-old male with a history of Marfan's syndrome and hypertension who presented with a dissecting aortic aneurysm in 2010. He underwent a valve sparing aortic root replacement with reimplantation of the coronary arteries and the aortic valve. This is known as the Niels's procedure. He had a 32 mm Valsalva Dacron graft and coronary bypass surgery of the right coronary artery. He also underwent an ascending aorta and arch repair with a 28 mm Dacron graft, and frozen elephant trunk procedure with direct placement of a 34 x 10 mm [place]Jacob thoracic stent graft. He also had mitral valve repair and plication of the anterior mitral valve leaflet. Over the last few weeks he is noted a slow increase in weight gain. He felt that he was bloated. He also notes that he is short of breath. Labs were normal. Echocardiogram done in August 2020 demonstrated normal LV size with severe concentric LVH with an estimated ejection fraction of 70%. Moderately dilated aortic root. Stage I diastolic dysfunction. RVSP 36 mmHg. He did undergo a pharmacologic nuclear stress test which demonstrated post rest myocardial perfusion changes concerning for myocardial ischemia in portions of the basal to mid inferior segments. Patient is here today to undergo a diagnostic heart catheterization. [facility] Medical History Marfans syndrome (Chronic) Dissecting aneurysm of ascending aorta (Resolved) Atherosclerotic heart disease of [place] coronary artery without angina pectoris (Chronic) Dissection of vertebral artery (Resolved) Essential (primary) hypertension (Chronic 05/20/18) Hyperlipidemia (Chronic) GERD (gastroesophageal reflux disease) (Chronic) Surgical History Hx of ascending aorta replacement (Resolved 03/08/11) H/O coronary artery bypass surgery (Resolved 03/08/11) History of mitral valve repair (Resolved 03/08/11) History of hand surgery (Resolved) History of left heart catheterization (Resolved 02/18/16) History of open reduction and internal fixation (ORIF) procedure (Resolved 2016) History of surgical fusion joint (Resolved) History of tonsillectomy (Resolved) Family History Son Marfans syndrome Daughter Marfans syndrome Father Hypertension Grandfather Heart disease Myocardial infarction CVA (cerebral vascular accident) Grandmother Heart disease Social History (Updated 08/14/20 @ 09:[address] Eduard Rea MD) Smoking Status: Never smoker Cardiology Exam Const Appearance: cooperative, healthy appearing, no acute distress, well developed and well groomed Nutritional Appearance: average body habitus and well nourished Orientation: alert, awake and oriented x3 Head Head: normal to inspection, normocephalic and atraumatic Ears: hearing grossly normal bilaterally and external ears normal Nose: external nose normal, nares normal, nasal mucous membranes and turbinates normal, septum normal, no nasal discharge Face and Sinus: face symmetric Mouth: oral mucosae normal, tongue normal, oropharynx normal and moist mucous membranes Teeth and gingiva: dentition normal Throat: posterior oropharynx normal, tonsils normal and uvula midline Eyes General: appearance normal, both eyes and all related structures Eyelids: eyelids normal Conjunctivae: conjunctivae normal Pupils: PERRL, normal by confrontation and accommodation normal EOM: EOM intact bilaterally Neck Neck: normal visual inspection, trachea midline and no JVD JVD: +5 Carotids: normal carotid upstroke and bounding pulses Chest Chest inspection: normal inspection of the chest, symmetric chest movement and normal respiratory effort Auscultation: Bilateral: Clear to Auscultation Cardio Palpation: normal PMI Rate: regular rate Rhythm: regular rhythm Heart sounds: S1 normal, S2 normal negative rub, gallop or murmur GI GI: normal to inspection, distended, bowel sounds present Neuro General: alert, awake, oriented x3, gait normal, moves all extremities and no focal sensory deficit Skin Skin: no rashes or lesions noted Extremities Pulses: Normal: Right Femoral Pulse, Left Femoral Pulse, Right Dorsalis Pedis Pulse, Left Dorsalis Pedis Pulse, Right Posterior Tibial Pulse, Left Posterior Tibial Pulse, Right Radial Pulse, Left Radial Pulse Lower Extremity Edema: None: Bilateral Musculoskel Musculoskeletal: No joint tenderness Psych Psychological: normal affect Assessment & Plan Assessment/Plan (1) Abnormal stress test: PLAN: Pt is agreeable to proceed with diagnostic heart cath. f/u plan will b based on findings.
--- NOTE | 2020-12-24 09:32 | CL.D_ITS ---
Patient Name: LEIDY DC Study Date: 12/14/2020 Performing: Nona Ramirez MD Ht: 76 inches 193 cm : 1970 Wt: 247.2 lbs 112 kg Age: 50 Gender: male BSA: 2.42 PROCEDURE(S) PERFORMED [id number]/CABG CLINICAL PROFILE AND INDICATIONS Indications: Worsening Angina Heart Failure: None Stress/Imaging Stress Test w/SPECT MPI: Yes Result: Positive Intermediate RiskStress Test with SP ECT MPI: Positive Intermediate Risk CAD Presentations: Unstable angina. CONCLUSIONS CAD as described. Patent 05/04 bypass grafts RECOMMENDATIONS DESCRIPTION OF PROCEDURE The patient arrived to the procedure lab. The risks and benefits of the procedure as well as a full d escription of our services here and current unavailability of surgical backup were fully explained to the patient and/or their significant other prior to the catheterization. The Timeout was completed, verifying the correct patient and procedure. The patient's procedural site was prepped and draped in the usual fashion. Local anesthetic was given subcutaneously to right radial region with Lidocaine 2% . Local anesthetic was given subcutaneously to right groin region with Lidocaine 2%. Using a modified Seldinger technique, arterial access was obtained via the right radial artery, a 6Fr sheath was inse rted., arterial access was obtained via the right femoral artery, a 6Fr sheath was inserted. Left Co ronary Artery selective angiography was performed in multiple views using a 5 Fr. JL4 catheter. Saphe nous Vein graft to the RCA selective angiography was performed in multiple views using a 5 Fr. JR 4 catheter. Right Coronary Artery selective angiography was then performed in multiple views u sing a 5 Fr. JR 4 catheter. Saphenous Vein graft to the RCA selective angiography was performed in mu ltiple views using a 5 Fr. MPA 2 catheter.Contrast was injected through the sheath and the Right Jann c and Femoral artery were assessed for possible closure device.The arterial sheath was pulled and a P erclose closure device was deployed for hemostasis. The radial arterial sheath was pulled and a TR Ba nd was applied for hemostasis 11cc air CORONARY ANGIOGRAPHY DOMINANCE: Right Dominant LEFT HEART ASSESSMENT Left Ventricular Ejection Fraction: Not assessed LEFT MAIN: No significant disease noted LEFT ANTERIOR DESCENDING ARTERY: PROX LAD: 30-40 % Stenosis CIRCUMFLEX ARTERY: No significant disease noted RIGHT CORONARY ARTERY: DISTAL RCA: 60 % Stenosis GRAFTS: Saphenous Vein graft to the RCA is patent COMPLICATIONS No Complications PROCEDURE MEDICATIONS Fentanyl 50 mcg IV Versed 1 mg IV Oxygen: 2 L/min via nasal cannula Heparin given IA 12/14/2020 10:02:59 Verapamil 2.5mg, Ntg 100mcgs, 3000 units of Heparin given IA 12/14/2020 10:02:59 SUMMARY OF HEMODYNAMIC DATA Time AIR REST ECG 08:03:54 AO 139/86 (108) SA 10:16:37 Signed By Nona Ramirez MD On 12/24/2020 09:31:39 Nona Ramirez MD
== END 2020-12-14 14:03 | disposition home or self-care (01) ==
LOC: CLSP 07:42
PROVIDERS: PCP Family Medicine; Referring Provider Specialist; Visit Provider Specialist
DX: I25.110 Atherosclerotic heart disease of native coronary artery with unstable angina pectoris (principal); I10 Essential (primary) hypertension; K21.9 Gastro-esophageal reflux disease without esophagitis; Q87.40 Marfan syndrome, unspecified; R94.39 Abnormal result of other cardiovascular function study; Z95.1 Presence of aortocoronary bypass graft; Z79.899 Other long term (current) drug therapy
CPT/HCPCS: 93455; 99152; 99153; J7040; Q9967; C1760; C1769; C1894

== ENCOUNTER → 2021-01-03 16:05 | Outpatient (CLI) | payer OTHER, MEDICARE, SELFPAY ==
--- NOTE | 2021-01-03 16:30 | RAD_ITS ---
STUDY: X-RAY CHEST REASON FOR EXAM: Male, 50 years old. Ruiz TECHNIQUE: Frontal and lateral views of the chest. COMPARISON: 05/19/2018. FINDINGS: No acute chest disease. Pleural thickening along the lower lateral right hemithorax, stable. Mild fibrotic changes/scarring in both lung bases. No gross infiltrates. No effusions. There is moderate cardiac enlargement. Previous median sternotomy. Stable distal aortic arch stent graft. Normal mediastinum and patrick. Normal visualized pulmonary arteries. Normal visualized thoracic spine. Normal visualized ribs, clavicles, and shoulders. There is no demonstrated abnormality of the visualized soft tissue structures of the upper abdomen. RAD/Chest PA and Lateral IMPRESSION: No change or acute abnormality. Electronically Signed: Fredy Salas MD at 17:18 EDT , Service support ,
== END ==
PROVIDERS: PCP Family Medicine; Referring Provider Physician Assistant Medical; Visit Provider Physician Assistant Medical
DX: R06.00 Dyspnea, unspecified (principal)
CPT/HCPCS: 71046

== ENCOUNTER → 2021-01-11 07:57 | Outpatient (CLI) | payer OTHER, MEDICARE, SELFPAY ==
--- NOTE | 2021-01-11 07:59 | CT_ITS ---
STUDY: CTA CHEST REASON FOR EXAM: Male, 50 years old. sob. AORTIC DISSECTION REPAIR RADIATION DOSAGE (If Supplied By Facility): CTDIvol = ( 14.36 ) mGy, DLP = ( 611.60 ) mGycm TECHNIQUE: The examination was performed with the intravenous administration of IV 100mL Isovue-370. Post-processing of the angiographic images was performed, with multiplanar reformation and 3D reconstruction. Individualized dose optimization techniques were used for this CT. COMPARISON: Comparison is made with prior study dated 08/03/2020. FINDINGS: Normal enhancement of the main pulmonary artery and right and left pulmonary arteries. Normal enhancement of the bilateral peripheral pulmonary arteries. There is no demonstrated pulmonary embolism. Once again, the patient is status post covered aortic stent placement of the aortic arch extending caudally into the descending thoracic aorta. 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 This measures 4.3 cm in maximum transverse dimension. Stable reconstruction of the aortic root. There is no demonstrated aortic dissection. Sternal cerclage wires and vascular clips are present from a prior sternotomy and coronary artery bypass graft procedure (CABG). Normal mediastinum. Normal hilar regions. Normal visualized trachea and bronchi. The lungs are well expanded. Normal pulmonary parenchyma. Normal pleura. Normal chest wall structures. Osteopenia of the thoracic vertebrae. Diffuse fatty infiltration of the liver. CT/CTA Chest W/WO Contrast IMPRESSION: Stable appearance of the aortic stent grafting involving the aortic arch and proximal portion of the descending thoracic aorta. There is no evidence of dissection. There is no evidence of a perigraft leak. Electronically Signed: Man Andrade MD at 10:14 EDT , Service support ,
== END ==
PROVIDERS: PCP Family Medicine; Visit Provider Physician Assistant Medical
DX: I71.01 Dissection of thoracic aorta (principal); I71.2 Thoracic aortic aneurysm, without rupture; I25.10 Atherosclerotic heart disease of native coronary artery without angina pectoris; I77.74 Dissection of vertebral artery; I10 Essential (primary) hypertension; Q87.40 Marfan syndrome, unspecified; E78.5 Hyperlipidemia, unspecified; Z95.1 Presence of aortocoronary bypass graft; Z95.828 Presence of other vascular implants and grafts; Z98.890 Other specified postprocedural states
CPT/HCPCS: 71275; Q9967

== ENCOUNTER → 2021-01-16 13:41 | Outpatient (CLI) | payer OTHER, MEDICARE, SELFPAY ==
[2020-12-13 07:56] VITALS: BMI 30.2
--- NOTE | 2021-01-16 13:44 | ECHOCS_ITS ---
Reason For Study: SOB, fatigue Procedure This was a 2D Doppler, Color Flow transthoracic echocardiogram. The study was technically difficult. Exam performed in department. Left Ventricle Normal LV size. Severe concentric left ventricular hypertrophy. Left ventricular systolic function is normal. The estimated ejection fraction is 55 %. Stage 1 diastolic dysfunction. No regional wall motion abnormalities noted. Right Ventricle Normal RV size. Normal systolic function. Atria Normal left atrium. Normal right atrium. Mitral Valve Normal mitral valve. Tricuspid Valve Normal tricuspid valve. Mild (1+) tricuspid valve insufficiency. Pulmonary artery systolic pressure is 30 mmHg. Aortic Valve Bioprosthetic aortic valve. Pulmonic Valve Normal pulmonic valve. Great Vessels Mild to moderately dilated aortic root. The pulmonary artery is normal size. Normal inferior vena cava. Pericardium/Pleural No pericardial effusion. Medication 22 gauge I.V. with prn adaptor inserted into right arm. Diluted definity 3ml given slow IV push to enhance endocardial definition. MMode/2D Measurements & Calculations LVIDd: 5.4 cm IVSd: 2.2 cm Ao root diam: 4.0 cm LVIDs: 3.7 cm LVPWd: 1.8 cm RVDd: 3.5 cm FS: 31.7 % LAV(MOD-bp): 56.5 ml LA A4 area: 18.3 cm2 LA dimension(2D): 4.2 cm LAV(MOD-bp) Indexed: 22.8 ml/m2 LAV(MOD-sp2): 66.6 ml LAV(MOD-sp4): 46.9 ml RA A4 area: 18.6 cm2 Doppler Measurements & Calculations MV E max tu: 45.7 cm/sec Lat Peak E' Tu: 9.3 cm/sec Med Peak E' Tu: 4.7 cm/sec MV A max tu: 80.3 cm/sec E/E' lat: 4.9 E/E' med: 9.7 MV E/A: 0.57 Ao V2 max: 155.4 cm/sec LV V1 max: 113.2 cm/sec PA V2 max: 113.4 cm/sec Ao max P.7 mmHg LV V1 max P.1 mmHg TR max tu: 252.2 cm/sec TR max P.6 mmHg ECHO/Echo Complete W/ Contrast Interpretation Summary Normal LV size. Severe concentric left ventricular hypertrophy. Left ventricular systolic function is normal. The estimated ejection fraction is 55 %. Stage 1 diastolic dysfunction. Pulmonary artery systolic pressure is 30 mmHg. Bioprosthetic aortic valve. Contrast injection was performed. Ordering Physician: Eduard Rea Referring Physician: Rodo Edmonds Performed By: Marlena Zapata RDCS
== END ==
PROVIDERS: PCP Family Medicine; Referring Provider Internal Medicine Cardiovascular Disease; Visit Provider Internal Medicine Cardiovascular Disease
DX: R94.39 Abnormal result of other cardiovascular function study (principal); I25.10 Atherosclerotic heart disease of native coronary artery without angina pectoris; I71.01 Dissection of thoracic aorta; I71.2 Thoracic aortic aneurysm, without rupture; I77.74 Dissection of vertebral artery; I10 Essential (primary) hypertension; J01.00 Acute maxillary sinusitis, unspecified; E87.5 Hyperkalemia; Q87.40 Marfan syndrome, unspecified; E78.5 Hyperlipidemia, unspecified; Z95.828 Presence of other vascular implants and grafts; Z95.1 Presence of aortocoronary bypass graft
CPT/HCPCS: 93306; Q9957; C8929; J3490

== ENCOUNTER 2021-03-13 18:02 | Emergency (ER) | payer OTHER, MEDICARE, SELFPAY ==
[2021-03-13] VITALS (7 sets, daily range): BP systolic 147–194; BP diastolic 92–112; PULSE 83–93; RESP 18–26; TEMP 36.1; O2SAT 90–97; BMI 29.2
--- NOTE | 2021-03-13 18:34 | EKG12_ITS ---
Test Reason : DYSRHYTHMIA Blood Pressure : / mmHG Vent. Rate : 087 BPM Atrial Rate : 087 BPM P-R Int : 188 ms QRS Dur : 114 ms QT Int : 394 ms P-R-T Axes : 009 -09 114 degrees QTc Int : 474 ms Normal sinus rhythm Consider LVH Inferior infarct , age undetermined, cannot be excluded ST & T wave abnormality, consider lateral ischemia Abnormal ECG Confirmed by KAILASH HARRIS, BETTY ([id number]), supervising editor news reel KELTON JAIN ([id number]) on 03/14/2021 11:27:14 AM Referred By: ALEXANDRA Confirmed By:BETTY LINDER MD
--- NOTE | 2021-03-13 18:34 | RAD_ITS ---
STUDY: X-RAY CHEST REASON FOR EXAM: Male, 50 years old. dyspnea TECHNIQUE: XR Chest 1 View COMPARISON: 9.2.21 FINDINGS: There is no demonstrated pleural abnormality. There is an elevated right hemidiaphragm. There are multiple median sternotomy wires. Thoracic aortic stent graft There is moderate cardiac enlargement. Normal mediastinum and patrick. Normal visualized pulmonary arteries. There is atherosclerotic calcification of the aortic arch with tortuosity. There are diffuse degenerative changes of the visualized thoracic spine. There is degenerative osteoarthritis of the bilateral shoulders. There is no demonstrated abnormality of the visualized soft tissue structures of the upper abdomen. RAD/Chest 1 View (Portable) IMPRESSION: There are no acute findings. Electronically Signed: Iraj Batres MD at 19:29 EST , Service support ,
--- NOTE | 2021-03-13 18:42 | ED.VIS.DYS ---
HPI History of Present Illness Chief Complaint: Shortness of Breath Narrative Narrative: Patient presenting with 2 months of worsening generalized fatigue, shortness of breath, weakness. Patient states that he is snoring very loud when he sleeps and this occurs through his mouth. Patient has not had a fever or body aches. Patient states that he has decreased p.o. intake due to difficulty swallowing secondary to pain. He also states that he is not very hungry. He also states that is difficult to breathe but mostly because of tightness he feels in his throat. He has not seen his PCP but has followed up with Dr. Rea . Patient is currently on hydrochlorothiazide and because of renal insufficiency has had to withhold other treatment forms for diuresis. Patient does not report any chest pain. Patient states that he had a recent echocardiogram and BNP which are both normal. He states he does have a 25 pound weight gain of unclear etiology. 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 Essential (primary) hypertension (05/20/18) GERD (gastroesophageal reflux disease) Hyperkalemia Hyperlipidemia Hypertensive urgency Marfans syndrome Nonobstructive atherosclerosis of coronary artery Uncontrolled hypertension Home Medications rabeprazole 20 mg PO DAILY 03/25/17 [History Last Taken 12/14/20] acetaminophen 1,000 mg PO PRN PRN 05/19/18 [History Last Taken 05/19/18] ibuprofen 600 mg PO PRN PRN 05/19/18 [History Last Taken 05/19/18] clopidogrel 75 mg PO DAILY 08/03/20 [History Last Taken 12/14/20] fenofibrate 160 mg PO DAILY 08/03/20 [History Last Taken Unknown] perphenazine 8 mg PO 4X/DAY 08/03/20 [History Last Taken Unknown] albuterol sulfate 90 mcg/actuation aerosol inhaler 2 puff INHALATION Q4H PRN PRN #8.5 gm 10/20/20 [Rx Last Taken Unknown] budesonide-formoterol HFA 160 mcg-4.5 mcg/actuation aerosol inhaler 2 puff INHALATION BID 01/18/21 [History Last Taken Unknown] dextroamphetamine-amphetamine 20 mg tablet 30 mg PO BID tab 01/18/21 [History Last Taken Unknown] hydrochlorothiazide 25 mg tablet 25 mg PO DAILY PRN 01/18/21 [History Last Taken Unknown] losartan 100 mg tablet 100 mg PO DAILY #90 tab 01/18/21 [Rx Last Taken Unknown] zolpidem 10 mg tablet 10 mg PO QHS PRN 01/18/21 [History Last Taken Unknown] carvedilol 12.5 mg tablet 12.5 mg PO BID 01/31/21 [History Last Taken Unknown] nifedipine 60 mg tablet,extended release 24 hr 60 mg PO DAILY #30 tab 01/31/21 [Rx Last Taken Unknown] Allergy/AdvReac Type Severity Reaction Status Date / Time ciprofloxacin [From Cipro] Allergy Rash Verified 03/13/21 18:03 ciprofloxacin HCl Allergy Rash Verified 03/13/21 18:03 [From Cipro] sulfamethoxazole Allergy Rash Verified 03/13/21 18:03 [From Bactrim] tramadol Allergy Itching Verified 03/13/21 18:03 trimethoprim [From Bactrim] Allergy Rash Verified 03/13/21 18:03 Family History Son Marfans syndrome Daughter Marfans syndrome Father Hypertension Grandfather Heart disease Myocardial infarction CVA (cerebral vascular accident) Grandmother Heart disease Surgical History H/O coronary artery bypass surgery (03/08/11) History of hand surgery History of left heart catheterization (12/14/20) History of mitral valve repair (03/08/11) History of open reduction and internal fixation (ORIF) procedure (2016) History of surgical fusion joint History of tonsillectomy Hx of ascending aorta replacement (03/08/11) Social History Smoking Status: Never smoker ROS ROS ED Constitutional Constitutional ED: Reports other Details: Weight gain ; Denies chills or fever(s) Eyes Eyes: Denies blurry vision ENT ENT ED: Denies ear pain or rhinorrhea Cardiovascular Cardiovascular: Denies chest pain or palpitations Respiratory/Chest Respiratory/Chest: Reports cough, dyspnea and dyspnea on exertion Gastrointestinal Gastrointestinal: Reports other Details: Decreased p.o. intake ; Denies abdominal pain, nausea or vomiting Genitourinary Genitourinary ED: Denies dysuria or hematuria Musculoskeletal Musculoskeletal: Denies arthralgias Integumentary Denies Abrasions or rash Neurologic Neurologic: Denies headache(s) or paresthesias EXAM Physical Exam Const Vital Signs: 03/13/21 18:03 03/13/21 18:13 03/13/21 18:15 Temperature 96.9 F L 96.9 F L Temperature Source Temporal Oral Pulse Rate 93 92 Respiratory Rate 25 H 26 H Respiratory Effort Short of Breath Accessory Muscle Use Respiratory Depth Normal Respiratory Pattern Tachypnea Blood Pressure 147/102 H 147/102 H Blood Pressure Mean 117 117 Pulse Ox 90 92 Oxygen Delivery Method Room Air Room Air Room Air Oxygen Flow Rate (L/min) 03/13/21 18:38 03/13/21 18:55 03/13/21 19:52 Temperature Temperature Source Pulse Rate 91 83 Respiratory Rate 24 H 20 H Respiratory Effort Short of Breath Labored Respiratory Depth Shallow Respiratory Pattern Tachypnea Blood Pressure 173/92 H Blood Pressure Mean 119 Pulse Ox 97 97 96 Oxygen Delivery Method Nasal Cannula Nasal Cannula Nasal Cannula Oxygen Flow Rate (L/min) 2 4 4 Positive obese General Appearance ED: NAD; Negative for pallor Nutritional Appearance: obese HEENT Reports dry mucous membranes atraumatic Mouth ED: Yes dry mucous membranes Mouth: dry mucous membranes Eyes PERRL and EOMs intact bilaterally General Eye ED: Negative for pale conjunctiva or scleral icterus Neck no lymphadenopathy, supple and no meningeal signs Neck Narrative: Expiratory stridor Resp Resp Narrative: Tachypneic. Lungs are clear to auscultation. Auscultation: Negative for wheezes Cardio regular rate and regular rhythm GI non-tender Neuro oriented x3, CN's II-XII intact bilaterally and no sensory deficits noted Sensorium / Orientation: alert Motor Exam: strength 5/5 throughout Psych mental status grossly normal Thought Process: normal thought process Skin General Skin Exam: Negative for jaundice or pallor MDM MDM MDM Narrative Medical decision making narrative: EKG performed on arrival shows a sinus rhythm with a ventricular rate of 87 bpm with slight T wave inversions and depressions in leads I, aVL which were noted previously on EKG 03 August 2020. There is no significant interval change. CBC shows a white blood cell count of 8.2, hemoglobin 13.6, hematocrit 40.2 platelets 251. PT/INR normal. Creatinine is slightly elevated at 1.54 and I will give IV fluids. Troponin is 44. Lactic acid 1.9. Chest x-ray on my interpretation shows no acute cardiopulmonary process and radiologist agree. I did obtain a CT soft tissue neck as the patient has no stridor and some difficulty swallowing. This is negative for acute findings as interpreted by radiology. BNP is 29.1. And there is no evidence of CHF. Patient has had recent echocardiogram which did not indicate that she had. It does sound as if the patient has pretty severe sleep apnea and has had a lot of daytime fatigue for the last couple of months. He admits to me that he lays around and sleeps most of the time. I do believe he likely needs a sleep study. He does not meet any criteria for admission however. I discussed this at length with his and him. I will provide a short burst of steroids due to the mild stridor. He has albuterol at home. They are given return precautions. Impression: 1. Stridor 2. Shortness of breath 3. Generalized weakness Lab Data Attestation: I reviewed the patient's lab results. Labs: Laboratory Results - last 24 hr 03/13/21 03/13/21 03/13/21 18:25 18:25 18:25 WBC 8.2 RBC 4.40 L Hgb 13.6 Hct 40.2 MCV 91.4 MCH 30.9 MCHC 33.8 RDW Std Deviation 47.2 H RDW Coeff of Lalita 14.3 Plt Count 251 MPV 9.0 Immature Gran % (Auto) 1.300 H Neut % (Auto) 74.7 H Lymph % (Auto) 9.3 L Clay % (Auto) 12.1 H Eos % (Auto) 2.0 Baso % (Auto) 0.6 Absolute Neuts (auto) 6.1 Absolute Lymphs (auto) 0.76 L Nucleated RBC % 0 PT 13.0 INR 1.0 APTT 25.9 Sodium Potassium Chloride Carbon Dioxide Anion Gap BUN Creatinine Estim Creat Clear Calc Est GFR (MDRD) Af Amer Est GFR (MDRD) Non-Af BUN/Creatinine Ratio Glucose Lactic Acid Calcium Magnesium Total Bilirubin AST ALT Alkaline Phosphatase Troponin I High Sens B-Natriuretic Peptide 29.1 Total Protein Albumin Globulin Albumin/Globulin Ratio 03/13/21 03/13/21 18:25 18:45 WBC RBC Hgb Hct MCV MCH MCHC RDW Std Deviation RDW Coeff of Lalita Plt Count MPV Immature Gran % (Auto) Neut % (Auto) Lymph % (Auto) Clay % (Auto) Eos % (Auto) Baso % (Auto) Absolute Neuts (auto) Absolute Lymphs (auto) Nucleated RBC % PT INR APTT Sodium 136 Potassium 3.7 Chloride 98 Carbon Dioxide 29.0 Anion Gap 9 BUN 18 Creatinine 1.54 H Estim Creat Clear Calc 68.89 Est GFR (MDRD) Af Amer 61 Est GFR (MDRD) Non-Af 51 L BUN/Creatinine Ratio 11.7 Glucose 162 H Lactic Acid 1.9 Calcium 8.5 Magnesium 1.6 Total Bilirubin 0.90 AST 81 H ALT 145 H Alkaline Phosphatase 116 Troponin I High Sens 44 B-Natriuretic Peptide Total Protein 7.1 Albumin 3.3 Globulin 3.8 Albumin/Globulin Ratio 0.9 Radiography Diagnostic Testing: Clinical Impression(s) from Imaging Studies Chest X-Ray 03/13/21 18:34 IMPRESSION: There are no acute findings. Electronically Signed: Iraj Batres MD at 19:29 EST , Service support , Soft Tissue Neck CT 03/13/21 19:43 IMPRESSION: Airways are patent. Electronically Signed: Iraj Batres MD at 20:13 EST , Service support , Discharge Plan Triage Chief Complaint: Shortness of Breath ED Provider: Diaz Herrmann Dx/Rx/DC Orders Prescriptions: No Action albuterol sulfate 90 mcg/actuation HFA aerosol inhaler 2 puff INHALATION Q4H PRN PRN (Reason: Wheezing) Qty: 8.5 RF: 3 budesonide-formoterol [Symbicort] 160-4.5 mcg/actuation HFA aerosol inhaler 2 puff inhalation BID RF: 0 zolpidem 10 mg tablet 10 mg PO QHS PRN (Reason: Sleep) RF: 0 hydrochlorothiazide 25 mg tablet 25 mg PO DAILY PRN (Reason: Pain) RF: 0 losartan 100 mg tablet 100 mg PO DAILY Qty: 90 RF: 3 rabeprazole 20 MG tablet,delayed release (DR/EC) 20 mg PO DAILY RF: 0 acetaminophen 500 MG tablet 1,000 mg PO PRN PRN (Reason: Pain) RF: 0 ibuprofen 200 MG tablet 600 mg PO PRN PRN (Reason: Pain) RF: 0 clopidogrel 75 MG tablet 75 mg PO DAILY RF: 0 fenofibrate 160 MG tablet 160 mg PO DAILY RF: 0 perphenazine 8 MG tablet 8 mg PO 4X/DAY RF: 0 dextroamphetamine-amphetamine 20 mg tablet 30 mg PO BID RF: 0 carvedilol [Coreg] 12.5 mg tablet 12.5 mg PO BID RF: 0 nifedipine 60 mg tablet extended release 24hr 60 mg PO DAILY Qty: 30 RF: 3 Primary Care Provider: Rodo Edmonds
[2021-03-13] MEDS: Ipratropium/Albuterol Sulfate 3 ML AMPUL.NEB INHALATION (18:55)
[2021-03-13] MEDS: Albuterol 2.5 MG/3 ML VIAL.NEB. INHALATION (18:55)
[2021-03-13 19:01] LABS: Absolute Lymphocyte Count 0.76 X10^3/uL (0.83-4.51); Absolute Neutrophil Count 6.1 X10^3/uL (2.0-7.7); Basophil# 0.05 X10^3/uL; Basophil% 0.6 % (0-1); Eosinophil# 0.16 X10^3/uL; Hematocrit 40.2 % (40-54); Hemoglobin 13.6 g/dL (13.0-16.5); Lymphocyte # 0.76 X10^3/ul (0.83-4.51); Lymphocyte % 9.3 % (19-41); Mean Corp Hgb Conc 33.8 g/dL (32-36); Mean Corpuscular Hgb 30.9 pg (27.0-32.0); Mean Corpuscular Volume 91.4 fL (80-94); Monocyte# 0.99 X10^3/uL; Monocyte% 12.1 % (0-10); NRBC Flagged by Analyzer 0 % (0-5); Neutrophil # 6.13 X10^3/uL (2.7-7.7); Neutrophil % 74.7 % (47-70); Platelet Count 251 K/mm3 (150-450); RBC Distribution Width CV 14.3 % (11.6-14.6); RBC Distribution Width SD 47.2 fl (35.1-43.9); White Blood Count 8.2 K/mm3 (4.4-11.0)
[2021-03-13] MEDS: MethylPREDNISolone 125 MG/2 ML Vial IV (19:03)
[2021-03-13 19:06] LABS: Partial Thromboplast Time 25.9 Seconds (24.1-36.2)
--- NOTE | 2021-03-13 19:11 | CPS ---
x1 Albuterol given to pt. in ED as well
--- NOTE | 2021-03-13 19:12 | CPS ---
Pt. exhibiting expiratory stridor pre-tx. Pt.'s stridor gone after Duoneb and Albuterol breathing tx.'s.
[2021-03-13 19:18] LABS: ALB/GLOB Ratio 0.9 RATIO (0.9-2.4); AST(SGOT) 81 U/L (15-37); Alanine Aminotransfer ALT/SGPT 145 U/L (16-61); Albumin, Serum 3.3 g/dL (3.2-5.0); Alkaline Phosphatase 116 U/L (45-117); Anion Gap 9 (5-15); BUN 18 mg/dL (7-18); BUN/Creat Ratio 11.7 RATIO (10-20); Calcium,Total 8.5 mg/dL (8.5-10.1); Chloride 98 mmol/L (98-107); Creatinine, Serum 1.54 mg/dL (0.70-1.30); EST Glomerular Filtration Rate 51 mL/min (>60); Est Glom Filt Rate - Afr Amer 61 mL/min (>60); Estimated Creatinine Clearance 68.89 ml/min; Globulin 3.8 g/dL (2.2-4.2); Glucose 162 mg/dL (74-106); Magnesium 1.6 mg/dL (1.6-2.6); Potassium 3.7 mmol/L (3.5-5.1); Protein, Total 7.1 g/dL (6.4-8.2); Sodium Level 136 mmol/L (136-145); Troponin-I HS 44 pg/mL (3.0-78.0)
[2021-03-13 19:23] LABS: Lactic Acid 1.9 mmol/L (0.4-1.9)
--- NOTE | 2021-03-13 19:43 | CT_ITS ---
EXAM: CT NECK WITH INTRAVENOUS CONTRAST CLINICAL INDICATION: difficulty swallowing/ stridor TECHNIQUE: Helically acquired images were obtained of the neck with intravenous contrast. This CT exam was performed using one or more of the following dose reduction techniques: automated exposure control, adjustment of the mA and/or kV according to patient size, and/or use of iterative reconstruction technique. This report was created using [email or web address] report [employer] technology. CONTRAST: IV 100mL Isovue-370 COMPARISON: None. FINDINGS: NASOPHARYNX: Unremarkable. SUPRAHYOID NECK: Unremarkable. Oropharynx, oral cavity, parapharyngeal space and retropharyngeal space are unremarkable. INFRAHYOID NECK: Unremarkable. The larynx, hypopharynx and supraglottis are unremarkable. SUBMANDIBULAR/PAROTID GLANDS: Unremarkable. Glands are normal in size. THYROID: Unremarkable. No enlarged or calcified nodules. BONES/JOINTS: Multiple median sternotomy wires are noted consistent for cardiac surgery. No acute fracture. SOFT TISSUES: Unremarkable. VASCULATURE: Partially visualized thoracic aortic stent graft. LYMPH NODES: Unremarkable. No lymphadenopathy. LUNG APICES: Unremarkable as visualized. OTHER FINDINGS: Airways are patent. CT/Soft Tissue Neck WITH Contrast IMPRESSION: Airways are patent. Electronically Signed: Iraj Batres MD at 20:13 EST , Service support ,
[2021-03-13 20:10] LABS: BNP,B-Type NATRIURETIC PEPTIDE 29.1 pg/mL (0-100)
== END 2021-03-13 21:38 | disposition home or self-care (01) ==
PROVIDERS: Emergency Provider Student in an Organized Health Care Education/Training Program; PCP Family Medicine
DX: R06.1 Stridor (principal); R53.1 Weakness; I10 Essential (primary) hypertension; E78.5 Hyperlipidemia, unspecified; K21.9 Gastro-esophageal reflux disease without esophagitis; Z95.1 Presence of aortocoronary bypass graft; Z79.02 Long term (current) use of antithrombotics/antiplatelets; Z79.899 Other long term (current) drug therapy
CPT/HCPCS: 70491; 71045; 80053; 83605; 83735; 83880; 84484; 85025; 85610; 85730; 87040; 87426; 93005; 94640; 96374; 99251; 99285; J7030; Q9967; G0463

== ENCOUNTER → 2021-03-18 | Outpatient (CLI) | payer OTHER, MEDICARE, SELFPAY | END | disposition home or self-care (01) | LOC: LABSPEC 15:22 | PROVIDERS: PCP Family Medicine; Visit Provider Otolaryngology Otolaryngology/Facial Plastic Surgery | DX: J32.9 Chronic sinusitis, unspecified (principal) | CPT/HCPCS: 87070; 87205 ==

== ENCOUNTER 2021-03-20 06:36 | Inpatient (IN) | payer OTHER, MEDICARE, SELFPAY ==
[2021-03-20] VITALS (27 sets, daily range): BP systolic 70–197; BP diastolic 48–108; PULSE 75–96; RESP 12–24; TEMP 35.5–37.4; O2SAT 88–100; BMI 33.1; BMI 32.3
--- NOTE | 2021-03-20 06:46 | RAD_ITS ---
EXAM: XR Chest, 1 View CLINICAL INDICATION: 50 years old, Male; chest pain TECHNIQUE: Frontal view of the chest. This report was created using [employer] report generation technology. COMPARISON: XR Chest dated 03/13/2021 FINDINGS: Lungs and pleural spaces: Mild infiltrate or atelectasis in the lung bases. No pneumothorax. No effusion. Heart: Unremarkable. Cardiac silhouette not enlarged. Mediastinum: Central airways and mediastinal contour are unremarkable. Bones/joints: Median sternotomy. Soft tissues: Unremarkable. Vasculature: Metallic vascular stent projects over the upper thoracic aorta. RAD/Chest 1 View (Portable) IMPRESSION: Mild infiltrate or atelectasis in the lung bases. Electronically Signed: Chito Booth MD at 7:18 EST Tel , Service support ,
[2021-03-20 06:57] LABS: Absolute Neutrophil Count 6.1 X10^3/uL (2.0-7.7); Basophil# 0.06 X10^3/uL; Basophil% 0.6 % (0-1); Eosinophil# 0.18 X10^3/uL; Eosinophils% 1.9 % (0-5); Hematocrit 42.7 % (40-54); Hemoglobin 14.4 g/dL (13.0-16.5); Lymphocyte % 18.1 % (19-41); Mean Corp Hgb Conc 33.7 g/dL (32-36); Mean Corpuscular Hgb 30.9 pg (27.0-32.0); Mean Corpuscular Volume 91.6 fL (80-94); Mean Platelet Vol. 8.9 fl (6.2-12.0); Monocyte# 1.07 X10^3/uL; Monocyte% 11.4 % (0-10); NRBC Flagged by Analyzer 0.2 % (0-5); Neutrophil # 6.13 X10^3/uL (2.7-7.7); Neutrophil % 65.2 % (47-70); Platelet Count 288 K/mm3 (150-450); RBC Distribution Width CV 14.6 % (11.6-14.6); RBC Distribution Width SD 48.2 fl (35.1-43.9); Red Blood Count 4.66 M/mm3 (4.6-6.2); White Blood Count 9.4 K/mm3 (4.4-11.0)
[2021-03-20 07:05] LABS: International Normalized Ratio 0.9; Prothrombin Time (Protime)PT. 11.9 SECONDS (11.7-14.9)
[2021-03-20 07:11] LABS: Anion Gap 5 (5-15); BUN 26 mg/dL (7-18); BUN/Creat Ratio 18.8 RATIO (10-20); Calcium,Total 8.8 mg/dL (8.5-10.1); Chloride 97 mmol/L (98-107); Creatinine, Serum 1.38 mg/dL (0.70-1.30); EST Glomerular Filtration Rate 57 mL/min (>60); Est Glom Filt Rate - Afr Amer 70 mL/min (>60); Estimated Creatinine Clearance 76.88 ml/min; Glucose 132 mg/dL (74-106); Potassium 3.3 mmol/L (3.5-5.1); Sodium Level 135 mmol/L (136-145); Troponin-I HS 37 pg/mL (3.0-78.0)
--- NOTE | 2021-03-20 07:24 | EDS_ITS ---
HPI History of Present Illness Chief Complaint: Chest Pain Informant: patient and spouse/S.O. Onset/Context/Timing Onset: Today and Hours Activity at onset: sudden Timing: Continuous Quality: Positive for Sharp and Stabbing Location: Left Chest Current Severity: Mild Maximum Severity: Mild Worsened By: Movement of Arm and Movement of Torso Relieved By: Remaining Still Associated Symptoms: Negative for Nausea, Vomiting, Diaphoresis, Dyspnea, Cough, Fever, Lightheadedness and Acid Reflux Narrative Narrative: 50-year-old male history of both aortic and at a different time a vertebral dissection. Aortic dissection was fixed by grafting he also needed a single-vessel bypass due to the dissection and aortic and mitral valve repair. States he rolled over in bed this morning when he rolled back he had pain in his left rib cage. He has had things like this before me list heavy things. He denies nausea or shortness of breath. He was recently in the emergency department for weight gain and shortness of breath. He has no history of DVT or PE has had no recent travel, surgery or immobilization or hospitalization. The pain is made worse with movement or movement of his arm or torso. He denies any hemoptysis. He denies recent illness. 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 Essential (primary) hypertension (05/20/18) GERD (gastroesophageal reflux disease) Hyperkalemia Hyperlipidemia Hypertensive urgency Marfans syndrome Nonobstructive atherosclerosis of coronary artery Uncontrolled hypertension Home Medications rabeprazole 20 mg PO DAILY 03/25/17 [History Last Taken 12/14/20] acetaminophen 1,000 mg PO PRN PRN 05/19/18 [History Last Taken 05/19/18] ibuprofen 600 mg PO PRN PRN 05/19/18 [History Last Taken 05/19/18] clopidogrel 75 mg PO DAILY 08/03/20 [History Last Taken 12/14/20] fenofibrate 160 mg PO DAILY 08/03/20 [History Last Taken Unknown] perphenazine 8 mg PO 4X/DAY 08/03/20 [History Last Taken Unknown] albuterol sulfate 90 mcg/actuation aerosol inhaler 2 puff INHALATION Q4H PRN PRN #8.5 gm 10/20/20 [Rx Last Taken Unknown] budesonide-formoterol HFA 160 mcg-4.5 mcg/actuation aerosol inhaler 2 puff INHALATION BID 01/18/21 [History Last Taken Unknown] dextroamphetamine-amphetamine 20 mg tablet 30 mg PO BID tab 01/18/21 [History Last Taken Unknown] hydrochlorothiazide 25 mg tablet 25 mg PO DAILY PRN 01/18/21 [History Last Taken Unknown] losartan 100 mg tablet 100 mg PO DAILY #90 tab 01/18/21 [Rx Last Taken Unknown] zolpidem 10 mg tablet 10 mg PO QHS PRN 01/18/21 [History Last Taken Unknown] carvedilol 12.5 mg tablet 12.5 mg PO BID 01/31/21 [History Last Taken Unknown] nifedipine 60 mg tablet,extended release 24 hr 60 mg PO DAILY #30 tab 01/31/21 [Rx Last Taken Unknown] handicap placcard #1 ea 03/15/21 [Rx Last Taken Unknown] hydrocodone-acetaminophen 1 tab PO Q4H PRN 4 Days #14 tab 03/20/21 [Rx Last Taken Unknown] Allergy/AdvReac Type Severity Reaction Status Date / Time ciprofloxacin [From Cipro] Allergy Rash Verified 03/13/21 18:03 ciprofloxacin HCl Allergy Rash Verified 03/13/21 18:03 [From Cipro] sulfamethoxazole Allergy Rash Verified 03/13/21 18:03 [From Bactrim] tramadol Allergy Itching Verified 03/13/21 18:03 trimethoprim [From Bactrim] Allergy Rash Verified 03/13/21 18:03 Family History Son Marfans syndrome Daughter Marfans syndrome Father Hypertension Grandfather Heart disease Myocardial infarction CVA (cerebral vascular accident) Grandmother Heart disease Surgical History H/O coronary artery bypass surgery (03/08/11) History of hand surgery History of left heart catheterization (12/14/20) History of mitral valve repair (03/08/11) History of open reduction and internal fixation (ORIF) procedure (2017) History of surgical fusion joint History of tonsillectomy Hx of ascending aorta replacement (03/08/11) Social History Smoking Status: Never smoker ROS ROS ED ROS Narrative Denies recent illness. Review of Systems ROS Unobtainable: Denies due to encephalopathy Constitutional Constitutional ED: Denies fever(s) Eyes Eyes: Reports none ENT ENT ED: Denies ear pain Cardiovascular Cardiovascular: Reports as per HPI and chest pain; Denies palpitations or racing heartbeat Respiratory/Chest Respiratory/Chest: Denies cough or dyspnea Gastrointestinal Gastrointestinal: Denies abdominal pain, nausea or vomiting Genitourinary Genitourinary ED: Denies dysuria Musculoskeletal Musculoskeletal: Denies myalgias Integumentary Denies rash Neurologic Neurologic: Denies headache(s) Psychiatric Psychiatric: Denies depression Endocrine Endocrinology: Denies polyuria Hematologic/Lymphatic Hematologic/Lymphatic: Denies easy bruising Allergic/Immunologic Allergic/Immunologic ED: Denies urticaria EXAM Physical Exam Narrative Exam Narrative: Middle-age male no acute distress. Vital signs stable afebrile pulse ox 90% on room air no signs hypoxia. HEENT exam unremarkable. Neck nontender no JVD. Lungs clear to auscultation. Heart regular rate and rhythm no murmur appreciated. Chest wall reproducible chest wall pain left lateral rib cage. No ecchymosis or bruising. No subcu air crepitus. Abdomen soft nontender. Moving all 4 extremities. Calves are nontender. No edema or cords. Neurologically is awake and alert with no focal motor deficits. Const Vital Signs: 03/20/21 06:37 03/20/21 06:39 03/20/21 06:48 Temperature 96 F L Temperature Source Temporal Pulse Rate 96 Respiratory Rate 20 H Respiratory Effort Normal Blood Pressure 186/107 H Blood Pressure Mean 133 Pulse Ox 93 Oxygen Delivery Method Room Air Room Air Oxygen Flow Rate (L/min) 03/20/21 07:44 03/20/21 08:02 03/20/21 08:08 Temperature Temperature Source Pulse Rate 92 93 Respiratory Rate 24 H 20 H Respiratory Effort Blood Pressure 184/104 H 178/90 H Blood Pressure Mean 130 119 Pulse Ox 93 94 96 Oxygen Delivery Method Nasal Cannula Nasal Cannula Nasal Cannula Oxygen Flow Rate (L/min) 4 5 5 03/20/21 09:38 03/20/21 11:11 03/20/21 13:29 Temperature Temperature Source Pulse Rate 85 91 90 Respiratory Rate 18 18 21 H Respiratory Effort Blood Pressure 189/101 H 197/108 H 170/108 H Blood Pressure Mean 130 137 128 Pulse Ox 96 92 99 Oxygen Delivery Method Nasal Cannula Nasal Cannula Non-Rebreather Oxygen Flow Rate (L/min) 5 Positive well nourished and well developed; Negative for cachectic, contractures or unkempt General Appearance ED: well developed and NAD; Negative for unkempt, cachectic, contractures or pallor Nutritional Appearance: Negative for cachectic HEENT Reports moist mucous membranes normocephalic and atraumatic; Negative for trauma or tenderness Eyes PERRL and EOMs intact bilaterally Neck no lymphadenopathy, supple and no JVD Chest Wall inspection of chest normal; Negative for palpation of chest normal Chest: tenderness Resp normal respiratory effort and clear to auscultation bilaterally Effort and Inspection: respiratory distress Auscultation: Negative for rales, rhonchi or wheezes Cardio regular rate, regular rhythm, S1 normal heart sound, S2 normal heart sound and no murmurs Rate: Negative for bradycardia or tachycardic GI normal to inspection, nondistended, normoactive bowel sounds, soft to palpation, non-tender, non-distended and no masses; Negative for hepatosplenomegaly Auscultation: Negative for hyperactive bowel sounds Back/Spine no CVA tenderness and no thoracic nor lumbar tenderness General Back: Negative for CVA tenderness Cervical Spine: Negative for cervical spine tenderness Extremity normal to inspection General Extremety ED: Negative for edema or tenderness General Extremity: Negative for edema Neuro oriented x3 Sensorium / Orientation: awake, alert, oriented to person, oriented to place and oriented to time Motor Exam: strength 5/5 throughout Psych mental status grossly normal Appearance: Negative for unkempt Mood & Affect: Negative for depressed or tearful Skin no rashes or lesions noted and no wounds General Skin Exam: Negative for jaundice or pallor Heart Score History: Slightly/Non-Suspicious ECG: Normal Age: >45 - <65 years Risk Factors: 1 or 2 Risk Factors Troponin: </= Normal Limit Score: 2 MDM MDM MDM Narrative Medical decision making narrative: Middle-age male with atypical left rib cage pain that does not sound cardiac in sounds like muscular etiology like he may have strained his left intercostal muscles. It is reproducible. He is not short of breath nor nauseated with it. Undergo cardiac work-up. He has no DVT or PE risk factors or history. Be treated with IV morphine for pain. Repeat exam patient is resting well. He does get hypoxic when he falls asleep in the emergency department. He has a pending sleep apnea outpatient work-up. Patient's had significant hypoxia while in the emergency department. I think the causes all obstructive sleep apnea. I discussed this with the hospitalist who will admit him for further evaluation and work-up. Lab Data Attestation: I reviewed the patient's lab results. Lab results narrative: CBC White count 9. Hemoglobin 14. Electrolytes potassium of 3.3. Gap of 5 BUN 26 creatinine 1.38 glucose 132 troponin 37. PT/INR of 11.9. Second troponin II hours after the first was 36. Less than the first 1. Labs are unremarkable. Labs: Laboratory Results - last 24 hr 03/20/21 03/20/21 03/20/21 06:39 06:39 06:39 WBC 9.4 RBC 4.66 Hgb 14.4 Hct 42.7 MCV 91.6 MCH 30.9 MCHC 33.7 RDW Std Deviation 48.2 H RDW Coeff of Lalita 14.6 Plt Count 288 MPV 8.9 Immature Gran % (Auto) 2.800 H Neut % (Auto) 65.2 Lymph % (Auto) 18.1 L Stephens % (Auto) 11.4 H Eos % (Auto) 1.9 Baso % (Auto) 0.6 Absolute Neuts (auto) 6.1 Absolute Lymphs (auto) 1.70 Nucleated RBC % 0.2 PT 11.9 INR 0.9 Sodium 135 L Potassium 3.3 L Chloride 97 L Carbon Dioxide 33.0 H Anion Gap 5 BUN 26 H Creatinine 1.38 H Estim Creat Clear Calc 76.88 Est GFR (MDRD) Af Amer 70 Est GFR (MDRD) Non-Af 57 L BUN/Creatinine Ratio 18.8 Glucose 132 H Calcium 8.8 Troponin I High Sens 37 03/20/21 09:03 WBC RBC Hgb Hct MCV MCH MCHC RDW Std Deviation RDW Coeff of Lalita Plt Count MPV Immature Gran % (Auto) Neut % (Auto) Lymph % (Auto) Stephens % (Auto) Eos % (Auto) Baso % (Auto) Absolute Neuts (auto) Absolute Lymphs (auto) Nucleated RBC % PT INR Sodium Potassium Chloride Carbon Dioxide Anion Gap BUN Creatinine Estim Creat Clear Calc Est GFR (MDRD) Af Amer Est GFR (MDRD) Non-Af BUN/Creatinine Ratio Glucose Calcium Troponin I High Sens 36 Radiography Chest X-Ray - ED: 1 View, Read by ED Physician, Read by Radiologist, Heart, Lungs, Mediastinum, Bony Structures, No Acute Disease and Chronic Changes Diagnostic Testing: Clinical Impression(s) from Imaging Studies Chest X-Ray 03/20/21 06:46 IMPRESSION: Mild infiltrate or atelectasis in the lung bases. Electronically Signed: Chito Booth MD at 7:18 EST Tel , Service support , Chest x-ray portable 1 view shows a prior sternotomy there is no acute abnormality. Radiologist is interpreting a left lower lobe infiltrate which I do not appreciate either on exam, history or interpreting the film myself. There is also an aortic stent. Rhythm Strip Rhythm Strip: Sinus Rhythm Rate: 99 Ectopy: PAC(s) EKG Initial EKG: Attestation: I personally reviewed and interpreted this EKG as follows: Interpretation: Sinus Rhythm and No Acute Injury Pattern Comments: Normal sinus rhythm with PACs rate of 99 but no acute signs of OH at this time. There is inverted T waves in lead I and aVL. Prior EKG tracings: available for review Discharge Plan Triage Chief Complaint: Chest Pain ED Provider: Arturo White Dx/Rx/DC Orders Clinical Impression: Acute chest wall pain, Chest wall muscle strain, Apnea, sleep, Hypoxia Prescriptions: New hydrocodone-acetaminophen 5-325 mg tablet 1 tab PO Q4H PRN (Reason: pain) 4 Days Qty: 14 RF: 0 No Action albuterol sulfate 90 mcg/actuation HFA aerosol inhaler 2 puff INHALATION Q4H PRN PRN (Reason: Wheezing) Qty: 8.5 RF: 3 budesonide-formoterol [Symbicort] 160-4.5 mcg/actuation HFA aerosol inhaler 2 puff inhalation BID RF: 0 zolpidem 10 mg tablet 10 mg PO QHS PRN (Reason: Sleep) RF: 0 hydrochlorothiazide 25 mg tablet 25 mg PO DAILY PRN (Reason: Pain) RF: 0 losartan 100 mg tablet 100 mg PO DAILY Qty: 90 RF: 3 rabeprazole 20 MG tablet,delayed release (DR/EC) 20 mg PO DAILY RF: 0 acetaminophen 500 MG tablet 1,000 mg PO PRN PRN (Reason: Pain) RF: 0 ibuprofen 200 MG tablet 600 mg PO PRN PRN (Reason: Pain) RF: 0 clopidogrel 75 MG tablet 75 mg PO DAILY RF: 0 fenofibrate 160 MG tablet 160 mg PO DAILY RF: 0 perphenazine 8 MG tablet 8 mg PO 4X/DAY RF: 0 dextroamphetamine-amphetamine 20 mg tablet 30 mg PO BID RF: 0 carvedilol [Coreg] 12.5 mg tablet 12.5 mg PO BID RF: 0 nifedipine 60 mg tablet extended release 24hr 60 mg PO DAILY Qty: 30 RF: 3 (DME) handicap placcard See Rx Instructions .Route .MEDSUPPLY Qty: 1 RF: 0 Primary Care Provider: Rodo Edmonds Referrals: Rodo Edmonds MD [Primary Care Provider] - 3-5 Days if not improving Activity Restrictions/Additional Instructions: Face to your sore left-sided chest wall. You strained the muscles between the ribs. Motrin for pain and inflammation 600 mg 2-3 times a day with food on your stomach. [place] for more severe pain. Plenty of fluids and fiber to prevent constipation. Follow-up with your outpatient sleep apnea study. Every time in the emergency department he fell asleep. Pulse ox dropped significantly. I think it is pretty obvious that you have sleep apnea. Disposition Disposition: Acute Care Hospital [facility]
[2021-03-20] MEDS: Ondansetron 4 MG/2 ML Vial IV (07:30)
[2021-03-20] MEDS: morphine 8 MG/ML Syringe IV (07:30)
--- NOTE | 2021-03-20 08:06 | ED.RN ---
DR MUÑOZ NOTIFIED PT PULSE OX DROPS TO 62% WHEN HE FALLS ASLEEP. HAVING PERIODS OF APNEA. O2 TURNED UP TO 5L / MIN
[2021-03-20 09:26] LABS: Troponin-I HS 36 pg/mL (3.0-78.0)
--- NOTE | 2021-03-20 13:36 | ED.RN ---
RN AMBULATED PATIENT WITH PULSE OX. PT INITIALLY DROPPED TO 89%. PT WAS UNSTEADY ON HIS FEET. RN PLACED PATIENT BACK IN BED AND HE DROPPED TO 77%. PT PLACED ON NRB AT 15L UP TO 99%. DR MUÑOZ NOTIFIED. RN TO WEAN PATIENT DOWN ON 02. PT IS RESTING IN BED ON 6L AT 94%.
--- NOTE | 2021-03-20 15:24 | PCM.HP.STD ---
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 Does feel the chest pain is musculoskeletal in nature, reproducible, localized without associated shortness of breath, dizziness or diaphoresis. Patient had echo, stress test and cardiac cath diagnostic and was not found coronary artery disease. Patient has one-vessel bypass during the time of aortic dissection repair as dissection extended into right and left coronary artery as per but no significant atherosclerotic disease was found. Patient has history of snoring, nighttime awakening and daytime hypersomnolence, morbid obesity body habitus all suggestive of sleep apnea/obesity hypoventilation syndrome. Patient has also been evaluated by ENT recently and found no endotracheal or epiglottic lesion but crowded oropharynx suggestive of sleep apnea. Patient also has appointment with Dr. Love on May 15, 2020. Patient had 2 high sensitive troponins negative. Twelve-lead EKG showed sinus rhythm, PAC, LAD, LVH with QRS widening 126 ms, nonspecific T wave abnormality. QTC is 479 ms with no significant change from previous EKG. When I saw the patient he was taking a nap but he woke up on verbal command. Patient does not have fever. Chest pain reported atelectasis in lung bases. Patient cannot be discharged home from ER. Significant hypoxia 3 to 4 L oxygen requirement and easily fall asleep. 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 Essential (primary) hypertension (05/20/18) GERD (gastroesophageal reflux disease) Hyperkalemia Hyperlipidemia Hypertensive urgency Marfans syndrome Nonobstructive atherosclerosis of coronary artery Uncontrolled hypertension Home Medications rabeprazole 20 mg PO DAILY 03/25/17 [History Last Taken 03/19/21] acetaminophen 1,000 mg PO DAILY PRN 05/19/18 [History Last Taken 05/19/18] ibuprofen 400 - 600 mg PO DAILY PRN 05/19/18 [History Last Taken 05/19/18] clopidogrel 75 mg PO DAILY 08/03/20 [History Last Taken 03/19/21] fenofibrate 160 mg PO DAILY 08/03/20 [History Last Taken 03/19/21] perphenazine 8 mg PO 4X/DAY 08/03/20 [History Last Taken 03/19/21] albuterol sulfate 90 mcg/actuation aerosol inhaler 2 puff INHALATION Q4H PRN PRN #8.5 gm 10/20/20 [Rx Last Taken 03/19/21] budesonide-formoterol HFA 160 mcg-4.5 mcg/actuation aerosol inhaler 2 puff INHALATION BID 01/18/21 [History Last Taken 03/19/21] zolpidem 10 mg tablet 10 mg PO QHS PRN 01/18/21 [History Last Taken Unknown] carvedilol 12.5 mg tablet 12.5 mg PO BID 01/31/21 [History Last Taken 03/19/21] nifedipine 60 mg tablet,extended release 24 hr 60 mg PO DAILY #30 tab 01/31/21 [Rx Last Taken 03/19/21] handicap placcard #1 ea 03/15/21 [Rx Last Taken Unknown] dextroamphetamine-amphetamine 30 mg PO DAILY 03/20/21 [History Last Taken 03/19/21] hydrocodone-acetaminophen 1 tab PO Q4H PRN 4 Days #14 tab 03/20/21 [Rx Last Taken Unknown] losartan 50 mg PO BID 03/20/21 [History Last Taken 03/19/21] Allergy/AdvReac Type Severity Reaction Status Date / Time ciprofloxacin [From Cipro] Allergy Rash Verified 03/13/21 18:03 ciprofloxacin HCl Allergy Rash Verified 03/13/21 18:03 [From Cipro] sulfamethoxazole Allergy Rash Verified 03/13/21 18:03 [From Bactrim] tramadol Allergy Itching Verified 03/13/21 18:03 trimethoprim [From Bactrim] Allergy Rash Verified 03/13/21 18:03 Family History Son Marfans syndrome Daughter Marfans syndrome Father Hypertension Grandfather Heart disease Myocardial infarction CVA (cerebral vascular accident) Grandmother Heart disease Surgical History H/O coronary artery bypass surgery (03/08/11) History of hand surgery History of left heart catheterization (12/14/20) History of mitral valve repair (03/08/11) History of open reduction and internal fixation (ORIF) procedure (2017) History of surgical fusion joint History of tonsillectomy Hx of ascending aorta replacement (03/08/11) Social History Smoking Status: Never smoker ROS ROS Narrative Patient daily for sleep therefore ROS mainly taken from patient's . Constitutional: Reports fatigue and weakness, daytime hypersomnolence. HEENT: Reports systems reviewed and no addt'l complaints, except as documented Respiratory/Chest: Loud snoring and grunting sound was sleep. Rest as mentioned in HPI Gastrointestinal: fat abdomen. Denies coffee ground emesis, hematemesis or vomiting Genitourinary: Denies burning urination or new urinary tract symptoms Musculoskeletal: Reports joint pain and limited range of motion Neurologic: Denies seizure-like activity skin: No ulcer. No rash Endocrinology: Reports systems reviewed and no addt'l complaints, except as documented Hematologic/Lymphatic: Reports systems reviewed and no addt'l complaints, except as documented Rest 12 ROS are negative except as mentioned in HPI Vital Signs Vital Signs Vital Signs: 03/20/21 06:37 03/20/21 06:39 03/20/21 06:48 Temperature 96 F L Temperature Source Temporal Pulse Rate 96 Respiratory Rate 20 H Respiratory Effort Normal Blood Pressure 186/107 H Blood Pressure Mean 133 Pulse Ox 93 Oxygen Delivery Method Room Air Room Air Oxygen Flow Rate (L/min) 03/20/21 07:44 03/20/21 08:02 03/20/21 08:08 Temperature Temperature Source Pulse Rate 92 93 Respiratory Rate 24 H 20 H Respiratory Effort Blood Pressure 184/104 H 178/90 H Blood Pressure Mean 130 119 Pulse Ox 93 94 96 Oxygen Delivery Method Nasal Cannula Nasal Cannula Nasal Cannula Oxygen Flow Rate (L/min) 4 5 5 03/20/21 09:38 03/20/21 11:11 03/20/21 13:29 Temperature Temperature Source Pulse Rate 85 91 90 Respiratory Rate 18 18 21 H Respiratory Effort Blood Pressure 189/101 H 197/108 H 170/108 H Blood Pressure Mean 130 137 128 Pulse Ox 96 92 99 Oxygen Delivery Method Nasal Cannula Nasal Cannula Non-Rebreather Oxygen Flow Rate (L/min) 5 Weight Weight: 272 lb 0.807 oz Body Mass Index (BMI) 33.1 Physical Exam Narrative General: Alert when awake. Fall asleep easily. Morbid obesity. HEENT: Atraumatic, PERRLA, EOMI, Normocephalic Oral: Crowded oropharynx. No Gingival or Mucosal Lesions/ Ulcerations Neck: Supple, No JVD, Negative Carotid Bruits Lungs: Diffuse snoring/grunting sound asleep. Air entry diminished in bilateral lung bases. Cardiovascular: Midsternal surgical scar. Sinus rhythm. mitral and aortic valve sound. S1-S2 regular Abdomen: Bowel Sounds Present, Soft, Non Tender, Non-Distended : No renal angle tenderness. No suprapubic tenderness. Extremities: No edema, Capillary Refill Less than 3 Seconds Skin: No rashes, No breakdown Musculoskeletal: No Tenderness to Palpation of Joints or Extremities Neurological: Cranial nerves II-XII grossly intact, DTR 2+/4 and Symmetrical, Neuro grossly intact Psych/Mental Status: Normal Affect, Appropriate. Results Lab / Micro Data Result Diagrams: 03/20/21 06:39 03/20/21 06:39 Labs: Laboratory Results - last 24 hr 03/20/21 06:39: WBC 9.4, RBC 4.66, Hgb 14.4, Hct 42.7, MCV 91.6, MCH 30.9, MCHC 33.7, RDW Std Deviation 48.2 H, RDW Coeff of Lailta 14.6, Plt Count 288, MPV 8.9, Immature Gran % (Auto) 2.800 H, Neut % (Auto) 65.2, Lymph % (Auto) 18.1 L, Greer % (Auto) 11.4 H, Eos % (Auto) 1.9, Baso % (Auto) 0.6, Absolute Neuts (auto) 6.1, Absolute Lymphs (auto) 1.70, Nucleated RBC % 0.2 03/20/21 06:39: Sodium 135 L, Potassium 3.3 L, Chloride 97 L, Carbon Dioxide 33.0 H, Anion Gap 5, BUN 26 H, Creatinine 1.38 H, Estim Creat Clear Calc 76.88, Est GFR (MDRD) Af Amer 70, Est GFR (MDRD) Non-Af 57 L, BUN/Creatinine Ratio 18.8, Glucose 132 H, Calcium 8.8, Troponin I High Sens 37 03/20/21 06:39: PT 11.9, INR 0.9 03/20/21 09:03: Troponin I High Sens 36 Rhythm Strip Rhythm Strip: Sinus Rhythm Rate: 99 Ectopy: PAC(s) Radiology Impression Chest X-Ray 03/20/21 06:46 IMPRESSION: Mild infiltrate or atelectasis in the lung bases. Electronically Signed: Chito Booth MD at 7:18 EST Tel , Service support , Assessment & Plan Assessment/Plan (1) Acute chest wall pain: (2) Hypoxia: PLAN: 1. Atypical chest pain probably musculoskeletal possible sleep apnea: Although PE is not #1 diagnosis but D-dimer was ordered by ER physician and is elevated. Modified Wells criteria for PE is 0 but with patient history of dissecting aortic aneurysm, CTPA is ordered. Patient on IV fluid normal saline. 2 serial troponins are negative. 1 more troponin at 6 hours. Patient had echo, stress and cardiac cath this year. Last echo 01/21/2021 reported as EF 55%, severe concentric LVH, stage I diastolic dysfunction, PASP 30 mmHg with bioprosthetic aortic valve. 2. 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 Patient home cardiac medications clopidogrel, carvedilol, losartan and Procardia XL continued. 3. CKD stage II: Patient baseline creatinine runs around 1.5. Currently 1.38. On IV fluid normal saline for 8 hours to prevent BARRETT. Estimated creatinine clearance in more than 60. 4. Hypoxia multiple sleep apnea: ABGs ordered to look for CO2. CPAP ordered. 5. Other comorbidities include uncontrolled hypertension, morbid obesity and dyslipidemia: Home medication reconciliation done. Fasting profile ordered for tomorrow a.m. BMI 32.4 kg/m?. [employer] consult. VT prophylaxis: Lovenox 40 MG subcu daily. Living will/advanced directive/end of life care: Patient does not have living will or advanced directive. I discussed with the patient and his . After discussion of benefits/risks procedures involved with full code, DNR CC arrest and DNR CC, the patient opted for full code. Patient and his does want artificial life support including intubation, tube feed, ventilator and/chest compression, central venous catheter, vasopressor and DC shock if needed Total time spent in [id number] encounter in discussion of advanced directive 16 minutes. Charges/Coding Visit Charges OBSV E&M: 59764 Subsequent observation care L3 Procedures Hospitalists Procedures: 59954 Advncd Care Plan 30 Min
[2021-03-20 16:22] LABS: D-Dimer Quantitative (DVT/PE) 1.04 FEU/ug/m (0.27-0.49)
--- NOTE | 2021-03-20 16:47 | EKG12_ITS ---
Test Reason : CP Blood Pressure : / mmHG Vent. Rate : 099 BPM Atrial Rate : 099 BPM P-R Int : 178 ms QRS Dur : 126 ms QT Int : 374 ms P-R-T Axes : 038 -10 111 degrees QTc Int : 479 ms Sinus rhythm with Premature atrial complexes Left ventricular hypertrophy with QRS widening Inferior infarct , age undetermined T wave abnormality, consider lateral ischemia Abnormal ECG Confirmed by JAYLYN HARRIS, GIOVANY ([id number]), associate entertainment editor KELTON JAIN ([id number]) on 03/21/2021 2:26:00 P M Referred By: ALEXANDRA Confirmed By:KELLEN DE LA O MD
--- NOTE | 2021-03-20 16:59 | CT_ITS ---
STUDY: CTA CHEST REASON FOR EXAM: Male, 50 years old. Hypoxia chest pain left-sided restrictive lung disease aortic dissection repair Marfan''s RADIATION DOSAGE (If Supplied By Facility): CTDIvol = ( 27.99 ) mGy, DLP = ( 772.23 ) mGycm TECHNIQUE: The examination was performed with the intravenous administration of IV 100mL Isovue-370. Post-processing of the angiographic images was performed, with multiplanar reformation and 3D reconstruction. Individualized dose optimization techniques were used for this CT. COMPARISON: 11 January 2021, to August 2020, 08 April 2018, 13 February 2016 FINDINGS: Appearance of aorta is similar to multiple priors dating back to 2016. There is no acute dissection or change in aortic diameter. There is a short segment chronic dissection flap in the ascending which has been present since 2016 and is unchanged in extent. There is a second shelflike short segment of elevated endothelium at the junction of aorta and brachiocephalic. There is a stable 4.6 cm aneurysmal dilation of the transverse aorta immediately prior to and endograft which extends from the distal arch into the descending aorta. There is mild tilting of the graft with full upright position of the lateral wall and mild lift off of the graft from the medial wall of the aorta. Descending is stable in size at 3.5 cm. There is tortuosity of the proximal great vessels which are all patent in the proximal mediastinal segments. There is remote sternotomy and SVG to RCA bypass. GONZALES and LIDIA are untouched and normal. Ovary arteries are normal without embolism. Pulmonary volumes are low with scattered multifocal subsegmental collapse. Airways are patent. There are no pleural effusions or pulmonary edema. There is severe hepatic steatosis and mild hepatomegaly. Right hemidiaphragm is elevated. CT/CTA Chest W/WO Contrast IMPRESSION: 1. No acute vascular abnormality. 2. No pulmonary embolism. 3. Stable aortic surgery and endograft. 4. Stable chronic small dissections/elevated endothelial flaps present since 2015. 5. Subsegmental collapse and low pulmonary volumes. 6. Hepatomegaly and steatosis. Electronically Signed: Alfred Day MD at 18:12 EST Tel , Service support ,
--- NOTE | 2021-03-20 17:01 | EKG12_ITS ---
Test Reason : Blood Pressure : / mmHG Vent. Rate : 085 BPM Atrial Rate : 085 BPM P-R Int : 174 ms QRS Dur : 126 ms QT Int : 380 ms P-R-T Axes : 024 -12 064 degrees QTc Int : 452 ms Normal sinus rhythm Left ventricular hypertrophy with QRS widening Inferior infarct (cited on or before 19-MAY-2018) T wave abnormality, consider lateral ischemia Abnormal ECG When compared with ECG of 13-MAR-2021 18:44, No significant change was found Confirmed by JAYLYN HARRIS, GIOVANY ([id number]), publication editor KELTON JAIN ([id number]) on 03/22/2021 2:15:31 P M Referred By: TWYLA Confirmed By:KELLEN DE LA O MD
[2021-03-20 17:38] LABS: Magnesium 1.8 mg/dL (1.6-2.6)
[2021-03-20] MEDS: Potassium Chloride Oral Tablet 20 MEQ 40 MEQ PO (18:20)
[2021-03-20] MEDS: 0.9% Normal Saline 1,000 ML 75 ML IV (18:20)
[2021-03-20] MEDS: Enoxaparin 40 MG/0.4 ML Syringe SC (18:20)
[2021-03-20 18:29] LABS: Troponin-I HS 27 pg/mL (3.0-78.0)
--- NOTE | 2021-03-20 19:25 | NURSING ---
Oncoming nurse in to see patient, lethargic will respond to name and tell RN name. Blood sugar checked 136, O2 88% on 4LNC, called respiratory to get ABG and place on Bipap. RT to call ABG results to doctor.
[2021-03-20] MEDS: 0.9% Normal Saline 1,000 ML 60 ML IV (19:35)
[2021-03-20 20:01] LABS: Bedside Glucose 136 mg/dL (70-110)
[2021-03-20 20:05] LABS: Allen Test Positive; Base Excess 6 mmol/L (-2 to +2); Bicarbonate 34.4 mmol/L (22-26); Blood Gas Specimen Type ART; Mode Avaps; O2 Delivery Device BiPAP; PEEP 10; PO2 73 mmHG (75-100); RR 14; SITE R Radial; SO2 88 % (95-99); Total Carbon Dioxide 37 mmol/L; Vt 450; pCO2 93.1 mmHg (35-45); pH 7.18 (7.35-7.45)
--- NOTE | 2021-03-20 20:11 | PCM.HOSP.N ---
Hospitalist Note Per review of records patient admitted with atypical onset of chest pain earlier in the day, worse with movement of his extremity and reproducible on ED and hospitalist evaluation. EKG without acute evidence of ischemia, cardiac enzyme series x3 unremarkable, CTPA with no vascular abnormality, no PE, stable aortic surgery and endograft present, stable chronic small dissection/elevated endothelial flap present since 2016 and unchanged, evidence of hepatomegaly and steatosis, subsegmental collapse and low pulmonary volumes evident. In the ED per review of ED physician patient was significantly hypoxic when he would fall asleep and family and him did report that he has planned outpatient NEO evaluation. Following admission patient eventually became more encephalopathic and ABG was obtained with significant hypoxia and hypercarbia with significant encephalopathy associated. Patient placed on BiPAP and transition to the ICU. Requested Covid labs, ammonia level, repeat troponin x1 although 3 normal, respiratory panel, sputum culture, antigens, procalcitonin, CRP, CPK, ferritin, LDH. Also will have repeat ABG and if patient improving with BiPAP may consider continuation however if unchanged may require intubation. Given significant encephalopathy with difficulty arousing we will also obtain CT head. [employer] consulted and made aware of patient presentation. Physical Examination: General: Patient does not awaken to any stimuli, not alert, not oriented, laying in the ICU bed with BiPAP in place, no distress. Skin: Normal color, normal turgor, no icterus, no cyanosis. HEENT: AT/NC, EOM unable to be assessed given encephalopathic status, PERRLA, dry MM, no carotid bruits or JVD noted. Lungs: Diffusely diminished, greater bases, BiPAP in place no rales, ronchi or wheezing. Heart: Regular rate and rhythm; no gallop, rub audible. Abdomen: Soft, no grimacing with palpation, no obvious distention.
--- NOTE | 2021-03-20 20:21 | NURSING ---
Annel called and updated about patient being transferred to ICU
--- NOTE | 2021-03-20 20:29 | NURSING ---
Report called to ICU
[2021-03-20] MEDS: Budesonide Respules 0.5 MG/2 ML AMPUL.NEB. INHALATION (20:37)
[2021-03-20] MEDS: Albuterol 2.5 MG/3 ML VIAL.NEB. INHALATION (20:37)
--- NOTE | 2021-03-20 21:13 | CT_ITS ---
STUDY: CT BRAIN WITHOUT CONTRAST REASON FOR EXAM: Male, 50 years old. Encephalopathy RADIATION DOSAGE (If Supplied By Facility): CTDIvol = ( 44.99 ) mGy, DLP = ( 880.47 ) mGycm TECHNIQUE: Transaxial CT imaging of the brain was performed without administration of intravenous contrast material. Individualized dose optimization techniques were used for this CT. COMPARISON: 08/03/2020. FINDINGS: Normal soft tissue structures. Normal calvarium. Normal size ventricles and extra-axial spaces for the patient''s age. Normal white matter tracts of the cerebral hemispheres. Normal basal ganglia and thalami. Normal brainstem. Normal cerebellum. There is no intracranial hemorrhage. There are no findings of an acute ischemic infarction. Normal visualized paranasal sinuses. Patient is intubated. Trace soft tissue gas in the right cna hha space. CT/Brain/Head without Contrast IMPRESSION: Normal unenhanced CT scan of the brain. Electronically Signed: Zeinab Gallardo MD at 23:41 EST Tel , Service support ,
[2021-03-20 21:22] LABS: Procalcitonin 0.33 ng/mL (0.00-0.09)
[2021-03-20] MEDS: Propofol 200 MG/20 ML Vial 100 MG IV BOLUS (21:48)
--- NOTE | 2021-03-20 21:48 | RAD_ITS ---
STUDY: X-RAY CHEST REASON FOR EXAM: Male, 50 years old. ETT placement TECHNIQUE: Single AP portable view of the chest. COMPARISON: 6:48 AM. FINDINGS: ET tube terminates 1.5 cm above the aidee. NG tube is identified in the stomach. Aortic stent extends from the arch into the proximal descending thoracic aorta. Low lung volumes. No pleural effusion or pulmonary consolidation.. Normal size heart. Normal mediastinum and patrick. RAD/Chest 1 View (Portable) IMPRESSION: Tube position as noted above. Electronically Signed: Zeinab Gallardo MD at 23:00 EST Tel , Service support ,
--- NOTE | 2021-03-20 21:48 | RAD_ITS ---
STUDY: X-RAY - ABDOMEN/PELVIS REASON FOR EXAM: Male, 50 years old. OG placement TECHNIQUE: KUB COMPARISON: None. FINDINGS: Enteric tube terminates in the gastric antrum. EKG leads superimposed over the upper abdomen. There is a non-obstructive bowel gas pattern. Soft tissues and bony structures are unremarkable. RAD/Abdomen Single View (Portable) IMPRESSION: Enteric tube terminates in the gastric antrum. Electronically Signed: Zeinab Gallardo MD at 22:53 EST Tel , Service support ,
[2021-03-20 21:50] LABS: Probe Check PASS; Specimen Processing Control PASS
[2021-03-20 21:51] LABS: Troponin-I HS 27 pg/mL (3.0-78.0)
[2021-03-20 21:54] LABS: Color, Urine Yellow (Yellow); Glucose, Dipstick 100 mg/dl (Normal); Ketone-Dipstick Negative (Negative); Leukocyte Esterase-Dipstick Negative /ul (Negative); Nitrite-Dipstick Negative (Negative); Occult Blood-Urine 10 /ul (Negative); Protein-Dipstick 100 mg/dl (Negative); Specific Gravity, Urine 1.025 (1.002-1.030); Urine Bilirubin Dipstick Negative (Negative); Urine Clarity Clear (Clear); Urine Urobilinogen Normal (Normal)
[2021-03-20] MEDS: 0.9% Normal Saline 1,000 ML 999 ML IV ×2 (21:55→23:45)
--- NOTE | 2021-03-20 22:00 | NURSING ---
2144 100mg succ ivp given 2147 100mg propofol ivp given 2148 #8 et tube 26@lip placed by dr constantino color change and bilat breath sounds restraints applied
[2021-03-20] MEDS: Propofol 10MG/Ml 1,000 MG/100 ML Bottle 7.1 MG CONT INF (22:10)
[2021-03-20] MEDS: TITRATION PARAMETER CHANGE 1 EACH IV (22:40)
[2021-03-20] MEDS: 0.9% Saline Lock 10 ML Syringe IV (22:40)
[2021-03-20 22:59] LABS: CPK Total, Creatine Kinase 32 U/L (39-308); Triglycerides 280 mg/dL
[2021-03-20 23:12] LABS: Ferritin 108 ng/mL (26-388); LDH 232 U/L (87-241); Magnesium 2.2 mg/dL (1.6-2.6)
[2021-03-20 23:14] LABS: BNP,B-Type NATRIURETIC PEPTIDE 22.2 pg/mL (0-100)
[2021-03-21] VITALS (60 sets, daily range): BP systolic 72–135; BP diastolic 53–90; PULSE 75–93; RESP 16–18; TEMP 37.3–39; O2SAT 90–99
[2021-03-21] MEDS: Lactulose 20 GM/30 ML UDC 200 GM RC (00:17)
[2021-03-21 00:41] LABS: Base Excess 4 mmol/L (-2 to +2); Bicarbonate 32.4 mmol/L (22-26); Blood Gas Specimen Type ART; FI02 50; Mode AC; O2 Delivery Device Adult Vent; PEEP 5; PO2 18 mmHG (75-100); RR 16; SITE R Brach; SO2 17 % (95-99); Total Carbon Dioxide 35 mmol/L; Vt 450; pCO2 81.8 mmHg (35-45); pH 7.21 (7.35-7.45)
--- NOTE | 2021-03-21 01:46 | RAD_ITS ---
STUDY: X-RAY - ABDOMEN/PELVIS REASON FOR EXAM: Male, 50 years old. abd distention TECHNIQUE: Single AP view of the abdomen / pelvis. COMPARISON: None. FINDINGS: Lung base is not included in the [id number]. Nasogastric tube is seen in place with the tip at the level of the gastric body. There is no significant bowel distention to suggest obstruction. There is no specific gas pattern within the colon with scattered fecal debris. There is no demonstrated free abdominal air. The visualized liver, spleen and kidneys are grossly normal in size and morphology. Normal soft tissue structures. Normal visualized osseous structures. RAD/Abdomen Single View (Portable) IMPRESSION: Nonspecific gas pattern. Nasogastric tube as described. Electronically Signed: Khadra Barboza MD at 2:51 EST , Service support ,
[2021-03-21 05:19] LABS: Absolute Lymphocyte Count 0.91 X10^3/uL (0.83-4.51); Absolute Neutrophil Count 6.3 X10^3/uL (2.0-7.7); Basophil# 0.02 X10^3/uL; Basophil% 0.2 % (0-1); Eosinophil# 0.12 X10^3/uL; Eosinophils% 1.4 % (0-5); Hematocrit 37.8 % (40-54); Hemoglobin 12.1 g/dL (13.0-16.5); Lymphocyte # 0.91 X10^3/ul (0.83-4.51); Lymphocyte % 10.8 % (19-41); Mean Corpuscular Hgb 31.2 pg (27.0-32.0); Mean Corpuscular Volume 97.4 fL (80-94); Mean Platelet Vol. 8.7 fl (6.2-12.0); Monocyte# 0.93 X10^3/uL; NRBC Flagged by Analyzer 0 % (0-5); Neutrophil # 6.32 X10^3/uL (2.7-7.7); Neutrophil % 74.8 % (47-70); Platelet Count 195 K/mm3 (150-450); RBC Distribution Width SD 53.4 fl (35.1-43.9); Red Blood Count 3.88 M/mm3 (4.6-6.2); White Blood Count 8.5 K/mm3 (4.4-11.0)
[2021-03-21 05:49] LABS: ALB/GLOB Ratio 0.8 RATIO (0.9-2.4); AST(SGOT) 41 U/L (15-37); Alanine Aminotransfer ALT/SGPT 86 U/L (16-61); Albumin, Serum 2.6 g/dL (3.2-5.0); Alkaline Phosphatase 93 U/L (45-117); Anion Gap 6 (5-15); BUN 41 mg/dL (7-18); BUN/Creat Ratio 17.5 RATIO (10-20); Calcium,Total 7.6 mg/dL (8.5-10.1); Chloride 101 mmol/L (98-107); Cholesterol 233 mg/dL (200); Creatinine, Serum 2.34 mg/dL (0.70-1.30); EST Glomerular Filtration Rate 31 mL/min (>60); Est Glom Filt Rate - Afr Amer 38 mL/min (>60); Estimated Creatinine Clearance 44.14 ml/min; Globulin 3.2 g/dL (2.2-4.2); Glucose 116 mg/dL (74-106); High Density Lipoprotein 37 mg/dL; Potassium 3.8 mmol/L (3.5-5.1); Protein, Total 5.8 g/dL (6.4-8.2); Sodium Level 137 mmol/L (136-145); Triglycerides 402 mg/dL
[2021-03-21 05:51] LABS: Allen Test Positive; Base Excess 2 mmol/L (-2 to +2); Bicarbonate 27.3 mmol/L (22-26); Blood Gas Specimen Type ART; FI02 40; Mode AC; O2 Delivery Device Adult Vent; PEEP 5; PO2 81 mmHG (75-100); RR 16; SITE L Radial; SO2 96 % (95-99); Total Carbon Dioxide 29 mmol/L; Vt 450; pCO2 44.7 mmHg (35-45); pH 7.39 (7.35-7.45)
--- NOTE | 2021-03-21 06:25 | CON.PCM.CC_ITS ---
Assessment & Plan Assessment/Plan (1) Acute respiratory failure with hypoxia and hypercapnia: PLAN: RECOMMENDATIONS: 1. Continue patient on assist control mode of mechanical ventilation. Wean FiO2/PEEP for saturations greater than 90%. 2. Continue current sedation regimen. Wean off/discontinue cis atracurium. 3. Obtain repeat chest x-ray. 4. Start empiric antimicrobials. 5. Check TSH. 6. Continue appropriate GI prophylaxis. 7. Check autoimmune panel. 8. Obtain MRI brain. IMPRESSIONS: 1. Acute combined respiratory failure Unclear precipitating etiology for the patient's acute respiratory decompensation. CTA chest showed no evidence for PE. I cannot discount the impact that IV morphine may have played in the setting of renal insufficiency on the patient's respiratory drive. However, following intubation, the patient's acid-base status has improved. Given that he did spike a fever this morning, will start him empirically on antimicrobials. In addition, a repeat chest x-ray will be obtained. The patient's sedation regimen will be optimized and the cis atracurium will be discontinued. 2. Encephalopathy Likely hypercarbic in etiology. The patient's hypercapnia has resolved with i nvasive mechanical ventilatory support. Recommend minimizing sedating medications. Given that the patient has not been initiating spontaneous breaths on pressure support mode mechanical ventilation, will obtain MRI brain. 3. Acute on chronic kidney disease Likely prerenal in etiology. Continue to monitor urine output for now. Avoid nephrotoxic agents. No indication for renal replacement therapy. 4. History of Marfan syndrome/history of aortic aneurysm/history of CABG/history of mitral valve repair/hypertension Complicates care, management, recovery and prognosis. Continue home medications as indicated. Okay to initiate tube feeds. The patient is at high risk for sleep apnea and should have an outpatient polysomnogram completed as well. TIME: 40 minutes of critical care time, independent of procedures, was spent addressing the patient's acute combined respiratory failure, encephalopathy, acute on chronic kidney disease, review of all data and collaboration with the care team. HPI Consult Data Date of Consult: 03/21/21 HPI Narrative Reason for Consultation: Acute respiratory failure HPI Narrative: The patient is a 50-year-old male, with a history as outlined below, who presented to the emergency department on March 20 with reported chest pain and shortness of breath. The patient had also previously been evaluated in the emergency department 1 week earlier with fatigue shortness of breath and weakness. He was noted to have a 25 pound weight gain of unclear etiology. The patient has a history of Marfan syndrome and hypertension along with a dissecting aortic aneurysm in 2010. The patient is currently being followed by Dr. Rea in the cardiology clinic. On presentation to the emergency department, the patient was noted to be afebrile but was hypertensive with a blood pressure of 186/107. He was initi ally saturating 93% on room air. Initial laboratory evaluation revealed no evidence of a leukocytosis. Platelet count was within normal limits. D-dimer was 1.04. Coags were within normal limits. Chemistry profile was notable for a sodium of 135, potassium of 3.3, chloride of 97, bicarbonate of 33 and creatinine of 1.38. Procalcitonin was noted to be 0.33. Coronavirus PCR was negative. Initial chest x-ray revealed basilar atelectasis. CTA chest showed no evidence for dissection. There was no significant pulmonary parenchymal disease. Hepatomegaly and steatosis was noted. CT head was unremarkable. Although the patient was initially admitted to the medical floor, he was noted to be more encephalopathic and hypoxemic during the evening hours. An arterial blood gas was obtained which revealed a pH of 7.18 with a PCO2 of 93 and PO2 of 73. The patient was subsequently transferred to the medical intensive care unit, where an attempt to utilize noninvasive positive pressure ventilatory support was unsuccessful. Ultimately, the patient required intubation. [facility] Medical History (Updated 03/21/21 @ 07:31 by Migdalia Sewell) Abnormal stress test Acute maxillary sinusitis, unspecified Dissecting aneurysm of ascending aorta Dissection of vertebral artery Essential (primary) hypertension (05/20/18) GERD (gastroesophageal reflux disease) Hyperkalemia Hyperlipidemia Hypertensive urgency Marfans syndrome Nonobstructive atherosclerosis of coronary artery Uncontrolled hypertension Home Medications rabeprazole 20 mg PO DAILY 03/25/17 [History Last Taken 03/19/21] acetaminophen 1,000 mg PO DAILY PRN 05/19/18 [History Last Taken 05/19/18] ibuprofen 400 - 600 mg PO DAILY PRN 05/19/18 [History Last Taken 05/19/18] clopidogrel 75 mg PO DAILY 08/03/20 [History Last Taken 03/19/21] fenofibrate 160 mg PO DAILY 08/03/20 [History Last Taken 03/19/21] perphenazine 8 mg PO 4X/DAY 08/03/20 [History Last Taken 03/19/21] albuterol sulfate 90 mcg/actuation aerosol inhaler 2 puff INHALATION Q4H PRN PRN #8.5 gm 10/20/20 [Rx Last Taken 03/19/21] budesonide-formoterol HFA 160 mcg-4.5 mcg/actuation aerosol inhaler 2 puff INHALATION BID 01/18/21 [History Last Taken 03/19/21] zolpidem 10 mg tablet 10 mg PO QHS PRN 01/18/21 [History Last Taken Unknown] carvedilol 12.5 mg tablet 12.5 mg PO BID 01/31/21 [History Last Taken 03/19/21] nifedipine 60 mg tablet,extended release 24 hr 60 mg PO DAILY #30 tab 01/31/21 [Rx Last Taken 03/19/21] handicap placcard #1 ea 03/15/21 [Rx Last Taken Unknown] dextroamphetamine-amphetamine 30 mg PO DAILY 03/20/21 [History Last Taken 03/19/21] hydrocodone-acetaminophen 1 tab PO Q4H PRN 4 Days #14 tab 03/20/21 [Rx Last Taken Unknown] losartan 50 mg PO BID 03/20/21 [History Last Taken 03/19/21] Allergy/AdvReac Type Severity Reaction Status Date / Time ciprofloxacin [From Cipro] Allergy Rash Verified 03/13/21 18:03 ciprofloxacin HCl Allergy Rash Verified 03/13/21 18:03 [From Cipro] sulfamethoxazole Allergy Rash Verified 03/13/21 18:03 [From Bactrim] tramadol Allergy Itching Verified 03/13/21 18:03 trimethoprim [From Bactrim] Allergy Rash Verified 03/13/21 18:03 Family History Son Marfans syndrome Daughter Marfans syndrome Father Hypertension Grandfather Heart disease Myocardial infarction CVA (cerebral vascular accident) Grandmother Heart disease Surgical History H/O coronary artery bypass surgery (03/08/11) History of hand surgery History of left heart catheterization (12/14/20) History of mitral valve repair (03/08/11) History of open reduction and internal fixation (ORIF) procedure (2017) History of surgical fusion joint History of tonsillectomy Hx of ascending aorta replacement (03/08/11) Social History Smoking Status: Never smoker ROS Review of Systems ROS Unobtainable: due to endotracheal tube and due to mental status Physical Exam Const General Appearance: intubated and patient mechanically ventilated Nutritional Appearance: obese HEENT normocephalic and head/scalp atraumatic Mouth: endotracheal tube in place and OG tube in place Eyes PERRL and conjunctivae normal Neck supple General: trachea midline Chest inspection of chest normal Resp Auscultation: diminished lung sounds; Negative for rales, rhonchi or wheezes Cardio regular rate and regular rhythm GI normal to inspection, nondistended, normoactive bowel sounds Extremity no clubbing, cyanosis or edema Skin no rashes or lesions noted Neuro Neuro Narrative: The patient is currently on pharmacologic paralytic agent. Sensorium / Orientation: sedated on vent Lab / Micro Data Result Diagrams: 03/21/21 05:00 03/21/21 05:00 Labs: Laboratory Results - last 24 hr 03/20/21 06:39: WBC 9.4, RBC 4.66, Hgb 14.4, Hct 42.7, MCV 91.6, MCH 30.9, MCHC 33.7, RDW Std Deviation 48.2 H, RDW Coeff of Lalita 14.6, Plt Count 288, MPV 8.9, Immature Gran % (Auto) 2.800 H, Neut % (Auto) 65.2, Lymph % (Auto) 18.1 L, Ocean % (Auto) 11.4 H, Eos % (Auto) 1.9, Baso % (Auto) 0.6, Absolute Neuts (auto) 6.1, Absolute Lymphs (auto) 1.70, Nucleated RBC % 0.2 03/20/21 06:39: Sodium 135 L, Potassium 3.3 L, Chloride 97 L, Carbon Dioxide 33.0 H, Anion Gap 5, BUN 26 H, Creatinine 1.38 H, Estim Creat Clear Calc 76.88, Est GFR (MDRD) Af Amer 70, Est GFR (MDRD) Non-Af 57 L, BUN/Creatinine Ratio 18.8, Glucose 132 H, Calcium 8.8, Troponin I High Sens 37 03/20/21 06:39: PT 11.9, INR 0.9 03/20/21 06:39: Magnesium 1.8 03/20/21 06:39: B-Natriuretic Peptide 22.2 03/20/21 09:03: Troponin I High Sens 36 03/20/21 15:20: D-Dimer Quant (PE/DVT) Cancelled 03/20/21 15:55: D-Dimer Quant (PE/DVT) 1.04 H* 03/20/21 17:57: Troponin I High Sens 27 03/20/21 17:57: Magnesium 2.2, Ferritin 108, Lactate Dehydrogenase 232, C-React Prot Ext Range 15.70 H 03/20/21 19:24: POC Glucose 136 H 03/20/21 20:22: COVID-19 (PASCUAL) Negative 03/20/21 20:40: Procalcitonin 0.33 H 03/20/21 20:40: Ammonia 48.0 H 03/20/21 21:00: Troponin I High Sens 27 03/20/21 21:00: Total Creatine Kinase 32 L, Triglycerides 280 H 03/20/21 21:10: Urine Color Yellow, Urine Clarity Clear, Urine pH 5.0, Ur Specific [place] 1.025, Urine Protein 100 H, Urine Glucose (UA) 100 H, Urine Ketones Negative, Urine Occult Blood 10 H, Urine Nitrite Negative, Urine Bilirubin Negative, Urine Urobilinogen Normal, Ur Leukocyte Esterase Negative 03/21/21 05:00: Sodium 137, Potassium 3.8, Chloride 101, Carbon Dioxide 30.0, Anion Gap 6, BUN 41 H, Creatinine 2.34 H, Estim Creat Clear Calc 44.14, Est GFR (MDRD) Af Amer 38 L, Est GFR (MDRD) Non-Af 31 L, BUN/Creatinine Ratio 17.5, Glucose 116 H, Calcium 7.6 L, Total Bilirubin 0.80, AST 41 H, ALT 86 H, Alkaline Phosphatase 93, Total Protein 5.8 L, Albumin 2.6 L, Globulin 3.2, Albumin/Globulin Ratio 0.8 L, Triglycerides 402 H, Cholesterol 233 H, LDL Cholesterol TNP, VLDL Cholesterol TNP, HDL Cholesterol 37 L 03/21/21 05:00: WBC 8.5, RBC 3.88 L, Hgb 12.1 L, Hct 37.8 L, MCV 97.4 H D, MCH 31.2, MCHC 32.0 D, RDW Std Deviation 53.4 H, RDW Coeff of Lalita 15.0 H, Plt Count 195, MPV 8.7, Immature Gran % (Auto) 1.800 H, Neut % (Auto) 74.8 H, Lymph % (Auto) 10.8 L, Ocean % (Auto) 11.0 H, Eos % (Auto) 1.4, Baso % (Auto) 0.2, Absolute Neuts (auto) 6.3, Absolute Lymphs (auto) 0.91, Nucleated RBC % 0 03/21/21 05:00: Ammonia 30.0 Micro: Microbiology 03/20/21 20:22 Mucosa - Nasopharyngeal Respiratory Panel (PCR) - Final 03/20/21 21:10 Urine Catheter - Tovar Legionella Antigen - Final 03/20/21 21:10 Urine Catheter - Tovar Streptococcus pneumoniae Antigen (M - Final ABG Data ABG results: ABG 03/20/21 03/21/21 03/21/21 20:00 00:33 05:41 Specimen Type ART ART ART Sample Site R Radial R Brach L Radial pH 7.18 L* 7.21 L 7.39 Bicarbonate Actual 34.4 H 32.4 H 27.3 H Total CO2 37 35 29 Base Excess 6 H 4 H 2 O2 Saturation 88 L 17 L 96 O2 % 50 40 ABG pCO2 93.1 H* 81.8 H* 44.7 ABG pO2 73 L 18 L* 81 Kyler Test Positive Positive Respiration Rate 14 16 16 O2 Delivery Device BiPAP Adult Vent Adult Vent Vent Mode Avaps AC AC Tidal Volume 450 450 450 POC PEEP 10 5 5 Crit Call To/Read Back Yes Yes Blood Gas Notified Whom vira [place] Rhythm Strip Rhythm Strip: Sinus Rhythm Rate: 99 Ectopy: PAC(s) Radiology Impression Chest X-Ray 03/20/21 06:46 IMPRESSION: Mild infiltrate or atelectasis in the lung bases. Electronically Signed: Chito Booth MD at 7:18 EST Tel , Service support , Chest CTA 03/20/21 16:59 IMPRESSION: 1. No acute vascular abnormality. 2. No pulmonary embolism. 3. Stable aortic surgery and endograft. 4. Stable chronic small dissections/elevated endothelial flaps present since 2016. 5. Subsegmental collapse and low pulmonary volumes. 6. Hepatomegaly and steatosis. Electronically Signed: Alfred Day MD at 18:12 EST Tel , Service support , Brain CT 03/20/21 21:13 IMPRESSION: Normal unenhanced CT scan of the brain. Electronically Signed: Zeinab Gallardo MD at 23:41 EST Tel , Service support , Chest X-Ray 03/20/21 21:48 IMPRESSION: Tube position as noted above. Electronically Signed: Zeinab Gallardo MD at 23:00 EST Tel , Service support , KUB X-Ray 03/20/21 21:48 IMPRESSION: Enteric tube terminates in the gastric antrum. Electronically Signed: Zeinab Gallardo MD at 22:53 EST Tel , Service support , KUB X-Ray 03/21/21 01:46 IMPRESSION: Nonspecific gas pattern. Nasogastric tube as described. Electronically Signed: Khadra Barboza MD at 2:51 EST , Service support , Charges/Coding Procedures Hospitalists Procedures: [id number] [facility]
--- NOTE | 2021-03-21 06:50 | PCS.PANDOC ---
PANDEMIC DOCUMENTATION INITIATED: Date: 12/17/2020 Time: 190
--- NOTE | 2021-03-21 07:00 | EKG12_ITS ---
Test Reason : AM EKG Blood Pressure : / mmHG Vent. Rate : 088 BPM Atrial Rate : 088 BPM P-R Int : 166 ms QRS Dur : 114 ms QT Int : 380 ms P-R-T Axes : - - 129 degrees QTc Int : 459 ms Normal sinus rhythm Left ventricular hypertrophy with repolarization abnormality Inferior infarct , age undetermined Abnormal ECG When compared with ECG of 20-MAR-2021 17:01, MANUAL COMPARISON REQUIRED, DATA IS UNCONFIRMED Confirmed by JAYLYN HARRIS, GIOVANY ([id number]), photography editor KELTON JANI ([id number]) on 03/22/2021 2:17:34 P M Referred By: UNRULY Confirmed By:KELLEN DE LA O MD
[2021-03-21] MEDS: Albuterol 2.5 MG/3 ML VIAL.NEB. INHALATION ×3 (07:06→19:05)
[2021-03-21] MEDS: Budesonide Respules 0.5 MG/2 ML AMPUL.NEB. INHALATION ×2 (07:06→19:06)
[2021-03-21] MEDS: Propofol 10MG/Ml 1,000 MG/100 ML Bottle 10.7 MG CONT INF ×3 (07:16→21:49)
--- NOTE | 2021-03-21 07:35 | RAD_ITS ---
STUDY: X-RAY CHEST REASON FOR EXAM: Male, 50 years old. Sob TECHNIQUE: Single AP portable view of the chest. COMPARISON: Comparison is made with prior study dated 03/20/2021. FINDINGS: An endotracheal tube is in situ with the tip at 3.5 cm proximal to the aidee. An orogastric tube is seen. Stable elevation of the right hemidiaphragm. Persistent left basilar atelectasis with small left pleural effusion. Sternal cerclage wires and vascular clips are present from a prior sternotomy and coronary artery bypass graft procedure (CABG). Normal mediastinum and patrick. Normal visualized pulmonary arteries. The stent is seen within the distal portion of the aortic arch and descending thoracic aorta. Normal visualized thoracic spine. Normal visualized ribs, clavicles, and shoulders. Findings suggestive of free air beneath the right hemidiaphragm. RAD/Chest 1 View (Portable) IMPRESSION: Stable examination. Findings suggestive of free air beneath the right hemidiaphragm. Electronically Signed: Man Andrade MD at 12:32 EST , Service support ,
[2021-03-21] MEDS: Chlorhexidine 15 ML PO ×2 (08:00→21:49)
--- NOTE | 2021-03-21 09:20 | RAD_ITS ---
STUDY: X-RAY CHEST REASON FOR EXAM: Male, 50 years old. Sob TECHNIQUE: Single AP portable view of the chest. COMPARISON: Comparison is made with prior study done earlier today. FINDINGS: The support tubes are in good position. Persistent pleural-parenchymal changes at the left lung base. No evidence of free air at this time. RAD/Chest 1 View (Portable) IMPRESSION: Stable examination. Electronically Signed: Man Andrade MD at 12:33 EST , Service support ,
[2021-03-21] MEDS: Pantoprazole Sodium 20 MG Tablet PO ×2 (10:50→10:51)
[2021-03-21] MEDS: Enoxaparin 40 MG/0.4 ML Syringe SC (10:50)
[2021-03-21] MEDS: Clopidogrel Bisulfate 75 MG Tablet PO (10:51)
--- NOTE | 2021-03-21 11:07 | NURSING ---
1010 [place] RT present pt room, concerned pt not breathing above vent and triggering apnea alarm. disc w/this RN 1015. fentanyl held, pt rouses readily, makes good eye contact, follows commands x4. returns to sleep and, once again, not breathing above the vent. 1030 pt tilted slty to left, pt quickly to SpO2 in 40s, double checked via 2nd SpO2 monitor. high pressure alarm despite pt being relaxed w/mouth open. 1035 fentanyl started at 100mcq/hr., pt remains on 100% 1045 SpO2 93 % FiO2 50% 1050 Dr. Morillo updated
--- NOTE | 2021-03-21 11:14 | MRI_ITS ---
EXAM: MR HEAD WITHOUT AND WITH INTRAVENOUS CONTRAST CLINICAL INDICATION: Encephalopathy of unclear etiology. Unresponsive. TECHNIQUE: Multiplanar and multisequence MR images of the brain were obtained without and with intravenous contrast. This report was created using [employer] report [employer] technology. CONTRAST: 25 mL of IV Dotarem COMPARISON: CT head without contrast 03/20/2021. FINDINGS: BRAIN AND EXTRA-AXIAL SPACES: No diffusion restriction throughout the brain parenchyma. No focal signal abnormalities throughout the brain parenchyma and pole of the pulse sequences. No abnormal enhancing lesions intraaxially and extra-axially. No intra- or extra-axial hemorrhage. No evidence of acute infarct. No intracranial mass or mass effect. There is preservation of the painter/white matter interface. Posterior fossa structures are unremarkable. Ventricles are appropriate for age. No hydrocephalus. Basal cisterns are patent. SELLA: Unremarkable. Normal sella turcica, pituitary gland, infundibular stalk, optic chiasm and hypothalamus. AUDITORY SYSTEM: Unremarkable. The internal auditory canals are patent. BONES/JOINTS: Unremarkable. No discrete lytic or blastic abnormalities. SINUSES: Unremarkable as visualized. Clear. MASTOID AIR CELLS: Unremarkable as visualized. Clear. ORBITS: Unremarkable as visualized. Both globes, extraocular muscles, optic nerves and retrobulbar fat appear unremarkable. VASCULATURE: Incidental superficial focal developmental venous anomaly (DVA) in the right frontal operculum (series 5, 6, 7, 8 and 10, image 16). MRI/Brain W/WO Contrast IMPRESSION: 1. Normal MRI brain with and without contrast. 2. 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 Electronically Signed: Anthony Zarate MD at 13:43 EST , Service support ,
[2021-03-21 11:28] LABS: Thyroid Stim Hormone (TSH) 6.09 uIU/mL (0.358-3.74)
[2021-03-21 11:56] LABS: CPK Total, Creatine Kinase 39 U/L (39-308)
[2021-03-21 11:57] LABS: Rheumatoid Factor < 10.0 IU/mL (<15)
--- NOTE | 2021-03-21 13:30 | NURSING ---
in MRI 1318 SpO2 96 BP 112/68 HR 89 1323 SpO2 96 BP 117/74 HR 90 1328 SpO2 95 BP 128/76 HR 90 1333 SpO2 94 BP 111/68 HR 93 1338 SpO2 95 BP 107/71 HR 91 1343 SpO2 95 BP 118/76 HR 90 1348 SpO2 96 BP 134/75 HR 90 1353 SpO2 95 BP 125/84 HR 89 return to unit
[2021-03-21] MEDS: 0.9% Saline Lock 10 ML Syringe IV ×2 (13:50→13:56)
--- NOTE | 2021-03-21 14:30 | CASEMGMT ---
RAFIQ SPENCE Face to Face with for initial transition planning/care coordination assessment as patient is currently on vent. RN CM introduced self and role at [facility]. Patient lying in bed, at bedside. willing to participate in assessment and is able to answer all questions appropriately. Care providers, pharmacy, and demographics verified. wishes for patient to discharge home, will monitor for needs pending course of treatment and progress with therapy. states she has no further needs or concerns at this time. CM to follow for discharge planning needs that may arise. 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 Patient was independent and able to ambulate stairs prior to hospitalization Transportation: self//children DME/HHC: patient has raised toilet and grab bars at home. No previous HHC or SNF. Disposition Plan: TBD by course of treatment and pending progress with therpay. Ami SIMPSON, RN, CM
[2021-03-21] MEDS: TITRATION PARAMETER CHANGE 1 EACH IV (15:08)
[2021-03-21 15:26] LABS: T4 Free Direct 0.92 ng/dL (0.76-1.46)
[2021-03-21] MEDS: Acetaminophen 325 MG Tablet 650 MG PO ×2 (16:43→23:45)
[2021-03-21] MEDS: Fenofibrate 145 MG Tablet PO (16:47)
[2021-03-21] MEDS: Carvedilol 12.5 MG Tablet PO (16:48)
--- NOTE | 2021-03-21 17:18 | PN.HOSP_ITS ---
Subjective Subjective Patient seen and examined. He was admitted through the ED with a complaint of left-sided chest pain and numbness of breath. He was also noted to have a 25 pound weight gain, etiology of which was unclear. He was noted to have a markedly elevated blood pressure and chest x-ray showed bibasilar atelectasis. CTA of the chest showed no evidence of aortic dissection. CT of the brain was also unremarkable. This was done as patient was noted to be drowsy. Patient was initially admitted to the floor but subsequently became much more encephalopathic and hypoxemic and an ABG done showed pH of 7.18 with PCO2 of 93 and PO2 of 73. He was emergently transferred to the ICU and intubated after he failed a trial of noninvasive positive pressure ventilation. Patient seen and examined this morning. He is intubated. Unable to do review of systems. Creatinine is up to 2.34 from 1.38 on admission. Objective Data Objective Data Vital Signs: Vital Signs Temp Pulse Resp BP Pulse Ox 101.6 F H 89 16 133/75 H 94 03/21/21 14:45 03/21/21 15:00 03/21/21 14:45 03/21/21 14:45 03/21/21 14:45 Oxygen Flow Rate (L/min) 15 Oxygen Delivery Method Mechanical Ventilator Weight: 262 lb 5.601 oz Body Mass Index (BMI) 32.3 Intake & Output: Intake and Output for Last 24 Hours 03/19/21 03/20/21 03/21/21 23:59 23:59 23:59 Intake Total 1237.20 / 1247.20 1869.44 / 1869.44 Output Total 1575 / 1575 Balance 1237.20 / 597.20 294.44 / 294.44 Lab / Micro Data Result Diagrams: 03/21/21 05:00 03/21/21 05:00 Labs: Laboratory Results - last 24 hr 03/20/21 06:39: Magnesium 1.8 03/20/21 06:39: B-Natriuretic Peptide 22.2 03/20/21 17:57: Troponin I High Sens 27 03/20/21 17:57: Magnesium 2.2, Ferritin 108, Lactate Dehydrogenase 232, C-React Prot Ext Range 15.70 H 03/20/21 19:24: POC Glucose 136 H 03/20/21 20:22: COVID-19 (PASCUAL) Negative 03/20/21 20:40: Procalcitonin 0.33 H 03/20/21 20:40: Ammonia 48.0 H 03/20/21 21:00: Troponin I High Sens 27 03/20/21 21:00: Total Creatine Kinase 32 L, Triglycerides 280 H 03/20/21 21:10: Urine Color Yellow, Urine Clarity Clear, Urine pH 5.0, Ur Specific [place] 1.025, Urine Protein 100 H, Urine Glucose (UA) 100 H, Urine Ketones Negative, Urine Occult Blood 10 H, Urine Nitrite Negative, Urine Bilirubin Negative, Urine Urobilinogen Normal, Ur Leukocyte Esterase Negative 03/21/21 05:00: Sodium 137, Potassium 3.8, Chloride 101, Carbon Dioxide 30.0, Anion Gap 6, BUN 41 H, Creatinine 2.34 H, Estim Creat Clear Calc 44.14, Est GFR (MDRD) Af Amer 38 L, Est GFR (MDRD) Non-Af 31 L, BUN/Creatinine Ratio 17.5, Glucose 116 H, Calcium 7.6 L, Total Bilirubin 0.80, AST 41 H, ALT 86 H, Alkaline Phosphatase 93, Total Protein 5.8 L, Albumin 2.6 L, Globulin 3.2, Albumin/Globulin Ratio 0.8 L, Triglycerides 402 H, Cholesterol 233 H, LDL C holesterol TNP, VLDL Cholesterol TNP, HDL Cholesterol 37 L 03/21/21 05:00: WBC 8.5, RBC 3.88 L, Hgb 12.1 L, Hct 37.8 L, MCV 97.4 H D, MCH 31.2, MCHC 32.0 D, RDW Std Deviation 53.4 H, RDW Coeff of Lalita 15.0 H, Plt Count 195, MPV 8.7, Immature Gran % (Auto) 1.800 H, Neut % (Auto) 74.8 H, Lymph % (Auto) 10.8 L, [place] % (Auto) 11.0 H, Eos % (Auto) 1.4, Baso % (Auto) 0.2, Absolute Neuts (auto) 6.3, Absolute Lymphs (auto) 0.91, Nucleated RBC % 0 03/21/21 05:00: Ammonia 30.0 03/21/21 05:00: TSH 6.09 H 03/21/21 05:00: Rheumatoid Factor < 10.0 03/21/21 05:00: Total Creatine Kinase 39 03/21/21 05:00: Free T4 0.92 Micro: Microbiology 03/20/21 22:35 Sputum, Induced/Lukens Gram Stain - Final 03/20/21 22:35 Sputum, Induced/Lukens Respiratory Culture - Preliminary Appears to be normal respiratory georgina. Further studies to follow. 03/20/21 21:10 Urine Catheter - Tovar Urine Culture - Preliminary Culture exhibits no growth. 03/20/21 20:22 Mucosa - Nasopharyngeal Respiratory Panel (PCR) - Final 03/20/21 21:10 Urine Catheter - Tovar Legionella Antigen - Final 03/20/21 21:10 Urine Catheter - Tovar Streptococcus pneumoniae Antigen (M - Final ABG Data ABG results: ABG 03/20/21 03/21/21 03/21/21 20:00 00:33 05:41 Specimen Type ART ART ART Sample Site R Radial R Brach L Radial pH 7.18 L* 7.21 L 7.39 Bicarbonate Actual 34.4 H 32.4 H 27.3 H Total CO2 37 35 29 Base Excess 6 H 4 H 2 O2 Saturation 88 L 17 L 96 O2 % 50 40 ABG pCO2 93.1 H* 81.8 H* 44.7 ABG pO2 73 L 18 L* 81 Kyler Test Positive Positive Respiration Rate 14 16 16 O2 Delivery Device BiPAP Adult Vent Adult Vent Vent Mode Avaps AC AC Tidal Volume 450 450 450 POC PEEP 10 5 5 Crit Call To/Read Back Yes Yes Blood Gas Notified Whom vira [place] Radiography Diagnostic Testing: Radiology Impression Chest CTA 03/20/21 16:59 IMPRESSION: 1. No acute vascular abnormality. 2. No pulmonary embolism. 3. Stable aortic surgery and endograft. 4. Stable chronic small dissections/elevated endothelial flaps present since 2015. 5. Subsegmental collapse and low pulmonary volumes. 6. Hepatomegaly and steatosis. Electronically Signed: Alfred Day MD at 18:12 EST Tel , Service support , Brain CT 03/20/21 21:13 IMPRESSION: Normal unenhanced CT scan of the brain. Electronically Signed: Zeinab Gallardo MD at 23:41 EST Tel , Service support , Chest X-Ray 03/20/21 21:48 IMPRESSION: Tube position as noted above. Electronically Signed: Zeinab Gallardo MD at 23:00 EST Tel , Service support , KUB X-Ray 03/20/21 21:48 IMPRESSION: Enteric tube terminates in the gastric antrum. Electronically Signed: Zeinab Gallardo MD at 22:53 EST Tel , Service support , KUB X-Ray 03/21/21 01:46 IMPRESSION: Nonspecific gas pattern. Nasogastric tube as described. Electronically Signed: Khadra Barboza MD at 2:51 EST , Service support , Chest X-Ray 03/21/21 07:35 IMPRESSION: Stable examination. Findings suggestive of free air beneath the right hemidiaphragm. Electronically Signed: Man Andrade MD at 12:32 EST , Service support , Chest X-Ray 03/21/21 09:20 IMPRESSION: Stable examination. Electronically Signed: Man Andrade MD at 12:33 EST , Service support , Brain MRI 03/21/21 11:14 IMPRESSION: 1. Normal MRI brain with and without contrast. 2. 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 Electronically Signed: Anthony Zarate MD at 13:43 EST , Service support , Rhythm Strip Rhythm Strip: Sinus Rhythm Rate: 99 Ectopy: PAC(s) Physical Exam Const Constitutional Narrative: Patient intubated, sedated, RASS score is -4 Exam Limitations: altered mental status Nutritional Appearance: obese HEENT head/scalp atraumatic Head and Scalp: normocephalic Eyes PERRL Neck no lymphadenopathy Resp Resp Narrative: Intubated, sedated. Has diminished breath sounds bibasilarly. No wheezes or crackles. Cardio regular rate, regular rhythm, S1 normal heart sound and S2 normal heart sound Cardio Narrative: Mitral valve click from mechanical valve GI normal to inspection, nondistended, normoactive bowel sounds, soft to palpation, non-tender and non-distended Extremity normal to inspection Peripheral Pulses: Yes pulses 2+ throughout Skin no rashes or lesions noted Neuro Neuro Narrative: Intubated, sedated, RASS score is -4 Assessment & Plan Assessment/Plan (1) Acute respiratory failure with hypoxia and hypercapnia: (2) Acute chest wall pain: PLAN: #Acute hypoxic and hypercapnic respiratory failure * Etiology is unclear * Patient currently intubated and sedated * Patient started on empiric antibiotics. Blood cultures pending * Titrate oxygen to maintain saturation above 90% * Critical care on board * #Acute metabolic encephalopathy * Likely due to hypercapnia. Currently intubated. * MRI of the brain ordered * #[place] on CKD stage III: Creatinine is up to 2.34 from 1.5 on admission. Monitor urine output. Hydrate gently with IV fluid. Avoid nephrotoxic agents #History of Marfan syndrome with aortic aneurysm: * Stable. CT of the chest was negative for any evidence of dissection * #CAD s/p CABG: Stable. On Plavix and statin as well as carvedilol #Hypertension: On losartan and nifedipine and carvedilol #Mitral valve prolapse status post mitral valve repair: Stable DVT prophylaxis: Lovenox GI prophylaxis: PPI Charges/Coding Visit Charges Inpatient E&M: 69248 Subs Hosp L3
[2021-03-21] MEDS: Vital AF 1.2 Cal Liquid 1,000 ML 25 ML GT (23:45)
[2021-03-22] VITALS (31 sets, daily range): BP systolic 93–189; BP diastolic 58–105; PULSE 70–99; RESP 14–23; TEMP 37.2–38.3; O2SAT 89–100
[2021-03-22 04:17] LABS: Absolute Neutrophil Count 5.5 X10^3/uL (2.0-7.7); Basophil# 0.04 X10^3/uL; Basophil% 0.5 % (0-1); Eosinophil# 0.26 X10^3/uL; Eosinophils% 3.2 % (0-5); Hematocrit 36.2 % (40-54); Hemoglobin 11.8 g/dL (13.0-16.5); Lymphocyte % 12.1 % (19-41); Mean Corp Hgb Conc 32.6 g/dL (32-36); Mean Corpuscular Hgb 31.5 pg (27.0-32.0); Mean Corpuscular Volume 96.5 fL (80-94); Mean Platelet Vol. 8.8 fl (6.2-12.0); Monocyte# 1.19 X10^3/uL; Monocyte% 14.4 % (0-10); NRBC Flagged by Analyzer 0 % (0-5); Neutrophil # 5.47 X10^3/uL (2.7-7.7); Neutrophil % 66.4 % (47-70); Platelet Count 174 K/mm3 (150-450); RBC Distribution Width CV 15.2 % (11.6-14.6); RBC Distribution Width SD 53.1 fl (35.1-43.9); Red Blood Count 3.75 M/mm3 (4.6-6.2); White Blood Count 8.2 K/mm3 (4.4-11.0)
[2021-03-22 04:33] LABS: Anion Gap 5 (5-15); BUN 55 mg/dL (7-18); BUN/Creat Ratio 22.3 RATIO (10-20); Chloride 102 mmol/L (98-107); Creatinine, Serum 2.47 mg/dL (0.70-1.30); EST Glomerular Filtration Rate 29 mL/min (>60); Est Glom Filt Rate - Afr Amer 36 mL/min (>60); Estimated Creatinine Clearance 41.81 ml/min; Glucose 148 mg/dL (74-106); Potassium 3.2 mmol/L (3.5-5.1); Sodium Level 138 mmol/L (136-145)
--- NOTE | 2021-03-22 06:23 | PCM.PN.INT ---
Assessment & Plan Assessment/Plan (1) Acute respiratory failure with hypoxia and hypercapnia: PLAN: RECOMMENDATIONS: 1. Proceed with a trial of extubation this morning. 2. Once extubated, wean supplemental oxygen to maintain saturations at or above 90%. 3. Bedside swallow evaluation with dietary advancement as tolerated. 4. Continue empiric antimicrobials. 5. Potassium repletion. 6. Encourage incentive spirometer use and mobilize patient as tolerated. IMPRESSIONS: 1. Acute combined respiratory failure Unclear precipitating etiology for the patient's acute respiratory decompensation. CTA chest showed no evidence for PE. I cannot discount the impact that IV morphine may have played in the setting of renal insufficiency on the patient's respiratory drive. However, following intubation, the patient's acid-base status has improved. The patient was initiated on antimicrobials as well after he developed fevers. The patient's respiratory status improved clinically and he was able to be extubated on the morning of March 22. We will plan to continue to wean oxygen to maintain saturations at or above 90%. Encourage incentive spirometer use and mobilize patient as tolerated. 2. Encephalopathy Resolved. Likely hypercarbic in etiology. The patient's hypercapnia resolved with invasive mechanical ventilatory support. Further work-up including brain MRI was unremarkable. 3. Acute on chronic kidney disease Likely prerenal in etiology. Continue to monitor urine output for now. Avoid nephrotoxic agents. No indication for renal replacement therapy. 4. Hypokalemia Electrolyte repletion as ordered. Recheck levels in the morning. 5. History of Marfan syndrome/history of aortic aneurysm/history of CABG/history of mitral valve repair/hypertension Complicates care, management, recovery and prognosis. Continue home medications as indicated. The patient is at high risk for sleep apnea and should have an outpatient polysomnogram completed as well. TIME: 35 minutes of critical care time, independent of procedures, was spent addressing the patient's acute combined respiratory failure, encephalopathy, acute on chronic kidney disease, review of all data and collaboration with the care team. Subjective Subjective The patient was seen and examined at the bedside this morning. Events from the last 24 hours have been reviewed. The patient currently has a low-grade fever with a T-max overnight of 102.1 ?F. The patient remains otherwise hemodynamically stable. He has been maintained on assist control mode of mechanical ventilation with an FiO2 requirement of 40%. He is currently doing well this morning on his spontaneous breathing trial. The patient is currently documented to be overall net +1.6 L for the hospitalization. MRI brain obtained yesterday was negative. Potassium is low this morning at 3.2. Creatinine remains elevated at 2.47. The patient remains on empiric antimicrobials. Objective Data Objective Data The patient's most recent lab work, culture data and imaging studies have all been personally reviewed. Infectious work-up has been unrevealing to date. MRI brain was unremarkable. Surface echocardiogram from January 2021 demonstrated severe concentric LVH with an ejection fraction of 55% and stage I diastolic dysfunction. Pulmonary artery systolic pressure was estimated to be 30 mmHg. Vital Signs: Vital Signs Temp Pulse Resp BP Pulse Ox 100.7 F H 84 20 H 182/99 H 95 03/22/21 06:00 03/22/21 06:00 03/22/21 06:00 03/22/21 06:00 03/22/21 06:00 Oxygen Flow Rate (L/min) 4 Oxygen Delivery Method Nasal Cannula Weight: 121.1 kg Body Mass Index (BMI) 32.3 Intake & Output: Intake and Output for Last 24 Hours 03/20/21 03/21/21 03/22/21 23:59 23:59 23:59 Intake Total 1237.20 / 1247.20 2112.11 / 2162.81 318.85 / 318.85 Output Total 1874 / 0 175 / 175 Balance 1237.20 / 597.20 237.11 / 112.81 143.85 / 143.85 Lab / Micro Data Attestation: I reviewed the patient's lab results. Result Diagrams: 03/22/21 04:00 03/22/21 04:00 Labs: Laboratory Results - last 24 hr 03/21/21 05:00: TSH 6.09 H 03/21/21 05:00: Rheumatoid Factor < 10.0 03/21/21 05:00: Total Creatine Kinase 39 03/21/21 05:00: Free T4 0.92 03/22/21 04:00: WBC 8.2, RBC 3.75 L, Hgb 11.8 L, Hct 36.2 L, MCV 96.5 H, MCH 31.5, MCHC 32.6, RDW Std Deviation 53.1 H, RDW Coeff of Lalita 15.2 H, Plt Count 174, MPV 8.8, Immature Gran % (Auto) 3.400 H, Neut % (Auto) 66.4, Lymph % (Auto) 12.1 L, [place] % (Auto) 14.4 H, Eos % (Auto) 3.2, Baso % (Auto) 0.5, Absolute Neuts (auto) 5.5, Absolute Lymphs (auto) 1.00, Nucleated RBC % 0 03/22/21 04:00: Sodium 138, Potassium 3.2 L, Chloride 102, Carbon Dioxide 31.0, Anion Gap 5, BUN 55 H, Creatinine 2.47 H, Estim Creat Clear Calc 41.81, Est GFR (MDRD) Af Amer 36 L, Est GFR (MDRD) Non-Af 29 L, BUN/Creatinine Ratio 22.3 H, Glucose 148 H, Calcium 8.0 L Micro: Microbiology 03/20/21 22:35 Sputum, Induced/Lukens Gram Stain - Final 03/20/21 22:35 Sputum, Induced/Lukens Respiratory Culture - Preliminary Appears to be normal respiratory georgina. Further studies to follow. 03/20/21 21:10 Urine Catheter - Tovar Urine Culture - Preliminary Culture exhibits no growth. 03/20/21 20:22 Mucosa - Nasopharyngeal Respiratory Panel (PCR) - Final 03/20/21 21:10 Urine Catheter - Tovar Legionella Antigen - Final 03/20/21 21:10 Urine Catheter - Tovar Streptococcus pneumoniae Antigen (M - Final Radiography Diagnostic Testing: Radiology Impression Chest X-Ray 03/21/21 07:35 IMPRESSION: Stable examination. Findings suggestive of free air beneath the right hemidiaphragm. Electronically Signed: Man Andrade MD at 12:32 EST , Service support , Chest X-Ray 03/21/21 09:20 IMPRESSION: Stable examination. Electronically Signed: Man Andrade MD at 12:33 EST , Service support , Brain MRI 03/21/21 11:14 IMPRESSION: 1. Normal MRI brain with and without contrast. 2. 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 Electronically Signed: Anthony Zarate MD at 13:43 EST , Service support , Rhythm Strip Rhythm Strip: Sinus Rhythm Rate: 99 Ectopy: PAC(s) Physical Exam Const General Appearance: intubated and patient mechanically ventilated Nutritional Appearance: obese HEENT normocephalic and head/scalp atraumatic Mouth: endotracheal tube in place and OG tube in place Eyes PERRL and conjunctivae normal Neck supple General: trachea midline Chest inspection of chest normal Resp Auscultation: diminished lung sounds; Negative for rales, rhonchi or wheezes Cardio regular rate and regular rhythm GI normal to inspection, nondistended, normoactive bowel sounds Extremity no clubbing, cyanosis or edema Skin no rashes or lesions noted Neuro Neuro Narrative: Alert and able to follow commands appropriately. Sensorium / Orientation: sedated on vent Charges/Coding Procedures Hospitalists Procedures: 49595 Critial Care 1st Hr
[2021-03-22] MEDS: Potassium Chloride 10mEq/100mL 10 MEQ/100 ML IV.SOLN. 100 MEQ IV BOLUS ×4 (06:38→11:38)
[2021-03-22] MEDS: Albuterol 2.5 MG/3 ML VIAL.NEB. INHALATION ×2 (06:54→18:46)
[2021-03-22] MEDS: Budesonide Respules 0.5 MG/2 ML AMPUL.NEB. INHALATION ×2 (06:55→18:46)
[2021-03-22] MEDS: CHLORHEXIDINE GLUC 2% CLOTH 1 EACH TOWELETTE TOPICAL (08:41)
[2021-03-22] MEDS: Carvedilol 12.5 MG Tablet PO ×2 (08:45→16:26)
[2021-03-22] MEDS: Clopidogrel Bisulfate 75 MG Tablet PO (08:46)
[2021-03-22] MEDS: Enoxaparin 40 MG/0.4 ML Syringe SC (08:46)
[2021-03-22] MEDS: Losartan Potassium 50 MG Tablet PO ×2 (09:18→21:03)
[2021-03-22] MEDS: NIFEdipine 60 MG Tablet PO (09:18)
[2021-03-22] MEDS: Fenofibrate 145 MG Tablet PO (09:26)
--- NOTE | 2021-03-22 14:21 | CASEMGMT ---
RAFI[facility]ENCE NOTE: Per Dr Morillo, pt will need a sleep study. Per Cecile @ Sleep lab, there is an opening Sunday 03/25 @ 8PM. She states will call pulmonary medicine to obtain a written order for same. Per Dr Morillo, pt to not be discharged until Thursday and then to go directly to sleep lab after discharge on Thursday. Pt and made aware. Bridget SIMPSON RN CM
[2021-03-22] MEDS: Acetaminophen 325 MG Tablet 650 MG PO (14:32)
--- NOTE | 2021-03-22 15:48 | PN.HOSP_ITS ---
Subjective Subjective Patient seen and examined. He successfully extubated this morning and was on oxygen by nasal cannula at time I reviewed him. was by his bedside. Patient had no recollection of what happened prior to him being brought to the hospital. He complained of some burning in his lower extremities. Review of systems otherwise negative. He has remained hemodynamically stable. Potassium is 3.2 today. He has been noted to have a mild fever of 99.9F today. Objective Data Objective Data Vital Signs: Vital Signs Temp Pulse Resp BP Pulse Ox 99.9 F H 85 20 H 131/73 H 93 03/22/21 15:00 03/22/21 15:00 03/22/21 15:00 03/22/21 15:00 03/22/21 15:00 Oxygen Flow Rate (L/min) 2 Oxygen Delivery Method Nasal Cannula Weight: 266 lb 15.677 oz Body Mass Index (BMI) 32.3 Intake & Output: Intake and Output for Last 24 Hours 03/20/21 03/21/21 03/22/21 23:59 23:59 23:59 Intake Total 1237.20 / 1247.20 2112.11 / 2162.81 2195.52 / 2195.52 Output Total 1875 / 2050 1025 / 1025 Balance 1237.20 / 597.20 237.11 / 112.81 1170.52 / 1170.52 Lab / Micro Data Result Diagrams: 03/22/21 04:00 03/22/21 04:00 Labs: Laboratory Results - last 24 hr 03/22/21 04:00: WBC 8.2, RBC 3.75 L, Hgb 11.8 L, Hct 36.2 L, MCV 96.5 H, MCH 31.5, MCHC 32.6, RDW Std Deviation 53.1 H, RDW Coeff of Lalita 15.2 H, Plt Count 174, MPV 8.8, Immature Gran % (Auto) 3.400 H, Neut % (Auto) 66.4, Lymph % (Auto) 12.1 L, [place] % (Auto) 14.4 H, Eos % (Auto) 3.2, Baso % (Auto) 0.5, Absolute Neuts (auto) 5.5, Absolute Lymphs (auto) 1.00, Nucleated RBC % 0 03/22/21 04:00: Sodium 138, Potassium 3.2 L, Chloride 102, Carbon Dioxide 31.0, Anion Gap 5, BUN 55 H, Creatinine 2.47 H, Estim Creat Clear Calc 41.81, Est GFR (MDRD) Af Amer 36 L, Est GFR (MDRD) Non-Af 29 L, BUN/Creatinine Ratio 22.3 H, Glucose 148 H, Calcium 8.0 L Micro: Microbiology 03/20/21 22:35 Sputum, Induced/Lukens Gram Stain - Final 03/20/21 22:35 Sputum, Induced/Lukens Respiratory Culture - Preliminary Appears to be normal respiratory georgina. Further studies to follow. 03/20/21 21:10 Urine Catheter - Tovar Urine Culture - Preliminary Culture exhibits no growth. 03/20/21 20:22 Mucosa - Nasopharyngeal Respiratory Panel (PCR) - Final 03/20/21 21:10 Urine Catheter - Tovar Legionella Antigen - Final 03/20/21 21:10 Urine Catheter - Tovar Streptococcus pneumoniae Antigen (M - Final Rhythm Strip Rhythm Strip: Sinus Rhythm Rate: 99 Ectopy: PAC(s) Physical Exam Const alert, oriented x3 and no apparent distress Orientation / Consciousness: lethargic Exam Limitations: no limitations Nutritional Appearance: obese HEENT head/scalp atraumatic and moist oral mucous membranes Head and Scalp: normocephalic Eyes PERRL, EOMs intact bilaterally and conjunctivae normal Neck no lymphadenopathy, supple and no JVD Resp Resp Narrative: midly diminished breath sounds bibasally, no wheezes or crackles. On 2L of oxygen by nasal canula Cardio regular rate, regular rhythm, S1 normal heart sound, S2 normal heart sound and no murmurs GI normal to inspection, nondistended, normoactive bowel sounds, soft to palpation, non-tender and non-distended Extremity normal to inspection, full ROM and no clubbing, cyanosis or edema Peripheral Pulses: Yes pulses 2+ throughout Skin no rashes or lesions noted Neuro oriented x3, CN's II-XII intact bilaterally and moves all extremities Sensorium / Orientation: awake and alert Psych affect normal Assessment & Plan Assessment/Plan (1) NEO (obstructive sleep apnea): (2) Acute respiratory failure with hypoxia and hypercapnia: (3) Acute chest wall pain: PLAN: #Acute hypoxic and hypercapnic respiratory failure * likely due to undiagnosed sleep apnea * extubated this morning. Now on 2L by nasal canula * on empiric antibiotics * blood cultures pending. Has a mild fever today. * On IV vancomycin and Zosyn. Titrate oxygen to maintain saturation above 90%. * Breathing treatments of bronchodilators. * Critical care on board * for sleep study before discharge * #Acute metabolic encephalopathy * Likely due to hypercapnia. Extubated earlier today. * Brain MRI was normal and showed an incidental small superficial focal developmental venous abnormality in the right frontal operculum * #[place] on CKD stage III: * Cr is 2.47 today. * hydrate with IVF normal saline. * avoid nephrotoxic agent * #History of Marfan syndrome with aortic aneurysm: * Stable. CT of the chest was negative for any evidence of dissection * #CAD s/p CABG: Stable. On Plavix and statin as well as carvedilol #Hypertension: On losartan and nifedipine and carvedilol #Mitral valve prolapse status post mitral valve repair: Stable DVT prophylaxis: Lovenox GI prophylaxis: PPI Charges/Coding Visit Charges Inpatient E&M: 56398 Subs Hosp L2
--- NOTE | 2021-03-22 17:52 | NURSING ---
diaphoretic with sleep, O2 sats dropped to low 80's, required 5L NC to maintain above 90%
[2021-03-23] VITALS (20 sets, daily range): BP systolic 142–198; BP diastolic 77–110; PULSE 68–87; RESP 16–24; TEMP 35.8–37.6; O2SAT 96–100
[2021-03-23] MEDS: Acetaminophen 325 MG Tablet 650 MG PO ×2 (02:48→13:01)
[2021-03-23 05:24] LABS: Absolute Lymphocyte Count 0.64 X10^3/uL (0.83-4.51); Absolute Neutrophil Count 3.1 X10^3/uL (2.0-7.7); Basophil# 0.03 X10^3/uL; Basophil% 0.6 % (0-1); Eosinophil# 0.19 X10^3/uL; Eosinophils% 3.8 % (0-5); Hematocrit 32.1 % (40-54); Hemoglobin 10.4 g/dL (13.0-16.5); Lymphocyte # 0.64 X10^3/ul (0.83-4.51); Lymphocyte % 12.7 % (19-41); Mean Corp Hgb Conc 32.4 g/dL (32-36); Mean Corpuscular Hgb 31.7 pg (27.0-32.0); Mean Corpuscular Volume 97.9 fL (80-94); Mean Platelet Vol. 8.8 fl (6.2-12.0); Monocyte% 17.9 % (0-10); NRBC Flagged by Analyzer 0 % (0-5); Neutrophil # 3.14 X10^3/uL (2.7-7.7); Neutrophil % 62.2 % (47-70); Platelet Count 158 K/mm3 (150-450); RBC Distribution Width CV 14.7 % (11.6-14.6); Red Blood Count 3.28 M/mm3 (4.6-6.2)
[2021-03-23] MEDS: LORazepam 0.5 MG Tablet PO ×2 (05:30→18:01)
--- NOTE | 2021-03-23 05:33 | PN.CC_ITS ---
Assessment & Plan Assessment/Plan (1) Acute respiratory failure with hypoxia and hypercapnia: PLAN: RECOMMENDATIONS: 1. Wean supplemental oxygen to maintain saturations at or above 90%. 2. Continue Pap therapy with naps and nightly. 3. Tentative plans for discharge directly to the sleep lab to undergo split- night sleep study. Orders have been placed accordingly. 4. Antibiotics can be discontinued from my perspective. 5. Encourage incentive spirometer use and mobilize patient as tolerated. 6. The patient is medically stable for transfer out of the intensive care unit. IMPRESSIONS: 1. Acute combined respiratory failure Unclear precipitating etiology for the patient's acute respiratory decompensation. CTA chest showed no evidence for PE. I cannot discount the impact that IV morphine may have played in the setting of renal insufficiency on the patient's respiratory drive. However, following intubation, the patient's a eric-base status has improved. The patient was initiated on antimicrobials as well after he developed fevers. However, given negative culture data to date, antibiotics were discontinued. Respiratory status improved and he was able to be extubated on March 22. We will plan to continue to wean oxygen to maintain saturations at or above 90%. Encourage incentive spirometer use and mobilize patient as tolerated. 2. Encephalopathy Resolved. Likely hypercarbic in etiology. The patient's hypercapnia resolved with invasive mechanical ventilatory support. Further work-up including brain MRI was unremarkable. 3. Acute on chronic kidney disease Resolved. Likely prerenal in etiology. Continue to monitor urine output for now. Avoid nephrotoxic agents. No indication for renal replacement therapy. 4. History of Marfan syndrome/history of aortic aneurysm/history of CABG/history of mitral valve repair/hypertension Complicates care, management, recovery and prognosis. Continue home medications as indicated. The patient is at high risk for sleep apnea and should have an outpatient polysomnogram completed as well. This note was generated with [employer] dictation software. It may contain incorrect words, spelling, and punctuation that were not noted in checking the note before signing. Subjective Subjective The patient was seen and examined at the bedside this morning. Events from the last 24 hours have been reviewed. The patient is currently afebrile, hemodynamically stable and maintaining appropriate oxygen saturations on 5 L/min via nasal cannula. The patient only wore BiPAP last night for approximately 3 hours. He is currently documented to be overall net +1.8 L for the hospitalization. Creatinine has normalized this morning to 1.15. Potassium has improved to 3.6. In speaking with the patient and his , the patient is high risk for underlying sleep apnea. The patient audibly snores when sleeping and his reports witnessed apneic events. In addition, patient admits to nonrestorative sleep and excessive daytime sleepiness. He also has documentation of oxygen desaturation with sleeping while admitted to the hospital. The patient has a stop bang score of 6, indicating high risk for obstructive sleep apnea. Objective Data Objective Data The patient's most recent lab work, culture data and imaging studies have all been personally reviewed. Infectious work-up has been unrevealing to date. MRI brain was unremarkable. Surface echocardiogram from January 2021 demonstrated severe concentric LVH with an ejection fraction of 55% and stage I diastolic dysfunction. Pulmonary artery systolic pressure was estimated to be 30 mmHg. Vital Signs: Vital Signs Temp Pulse Resp BP Pulse Ox 99.5 F H 80 16 167/99 H 97 03/23/21 04:00 03/23/21 05:00 03/23/21 05:00 03/23/21 05:00 03/23/21 05:00 Oxygen Flow Rate (L/min) 5 Oxygen Delivery Method Nasal Cannula Weight: 122.1 kg Body Mass Index (BMI) 32.3 Intake & Output: Intake and Output for Last 24 Hours 03/21/21 03/22/21 03/23/21 23:59 23:59 23:59 Intake Total 2112.11 / 2162.81 2465.52 / 2765.52 710 / 710 Output Total 1875 / 2050 1625 / 2360 1135 / 1135 Balance 237.11 / 112.81 840.52 / 405.52 -425 / -425 Lab / Micro Data Attestation: I reviewed the patient's lab results. Result Diagrams: 03/23/21 05:00 03/23/21 05:00 Labs: Laboratory Results - last 24 hr 03/23/21 05:00: WBC 5.0, RBC 3.28 L, Hgb 10.4 L, Hct 32.1 L, MCV 97.9 H, MCH 31.7, MCHC 32.4, RDW Std Deviation 53.0 H, RDW Coeff of Lalita 14.7 H, Plt Count 158, MPV 8.8, Immature Gran % (Auto) 2.800 H, Neut % (Auto) 62.2, Lymph % (Auto) 12.7 L, [place] % (Auto) 17.9 H, Eos % (Auto) 3.8, Baso % (Auto) 0.6, Absolute Neuts (auto) 3.1, Absolute Lymphs (auto) 0.64 L, Nucleated RBC % 0 Micro: Microbiology 03/20/21 22:35 Sputum, Induced/Lukens Gram Stain - Final 03/20/21 22:35 Sputum, Induced/Lukens Respiratory Culture - Preliminary Appears to be normal respiratory georgina. Further studies to follow. 03/20/21 21:10 Urine Catheter - Tovar Urine Culture - Preliminary Culture exhibits no growth. 03/20/21 20:22 Mucosa - Nasopharyngeal Respiratory Panel (PCR) - Final 03/20/21 21:10 Urine Catheter - Tovar Legionella Antigen - Final 03/20/21 21:10 Urine Catheter - Tovar Streptococcus pneumoniae Antigen (M - Final Rhythm Strip Rhythm Strip: Sinus Rhythm Rate: 99 Ectopy: PAC(s) Physical Exam Const alert and no apparent distress General Appearance: cooperative Nutritional Appearance: obese HEENT normocephalic and head/scalp atraumatic Eyes PERRL, EOMs intact bilaterally and conjunctivae normal Neck supple General: trachea midline Chest inspection of chest normal Resp normal respiratory effort Auscultation: Negative for rales, rhonchi or wheezes Cardio regular rate and regular rhythm GI normal to inspection, nondistended, normoactive bowel sounds Extremity no clubbing, cyanosis or edema Skin no rashes or lesions noted Neuro CN's II-XII intact bilaterally, moves all extremities and no focal motor deficits Psych Mood & Affect: flat affect Charges/Coding Visit Charges Inpatient E&M: 38880 Subs Hosp L3
[2021-03-23 05:57] LABS: Anion Gap 4 (5-15); BUN 23 mg/dL (7-18); Calcium,Total 7.8 mg/dL (8.5-10.1); Chloride 104 mmol/L (98-107); Creatinine, Serum 1.15 mg/dL (0.70-1.30); EST Glomerular Filtration Rate 71 mL/min (>60); Est Glom Filt Rate - Afr Amer 86 mL/min (>60); Estimated Creatinine Clearance 89.81 ml/min; Glucose 123 mg/dL (74-106); Potassium 3.6 mmol/L (3.5-5.1); Sodium Level 141 mmol/L (136-145)
[2021-03-23] MEDS: Budesonide Respules 0.5 MG/2 ML AMPUL.NEB. INHALATION ×2 (06:41→19:03)
[2021-03-23] MEDS: Albuterol 2.5 MG/3 ML VIAL.NEB. INHALATION ×2 (06:41→19:03)
[2021-03-23] MEDS: Losartan Potassium 50 MG Tablet PO ×2 (09:33→21:33)
[2021-03-23] MEDS: Carvedilol 12.5 MG Tablet PO ×2 (09:33→18:02)
[2021-03-23] MEDS: Enoxaparin 40 MG/0.4 ML Syringe SC (09:33)
[2021-03-23] MEDS: Pantoprazole Sodium 20 MG Tablet PO (09:34)
[2021-03-23] MEDS: Clopidogrel Bisulfate 75 MG Tablet PO (09:34)
[2021-03-23] MEDS: Fenofibrate 145 MG Tablet PO (09:34)
[2021-03-23] MEDS: NIFEdipine 60 MG Tablet PO (09:34)
--- NOTE | 2021-03-23 10:09 | PN.HOSP_ITS ---
Subjective Subjective Patient seen and examined. He was on BIPAP at time of review. He was however responsive though a bit lethargic. Review of systems is otherwise negative. Review of systems is otherwise negative. He was noted to be desaturating and so was put back on his BIPAP. Review of systems was otherwise negative. He has remained hemodynamically stable otherwise. Objective Data Objective Data Vital Signs: Vital Signs Temp Pulse Resp BP Pulse Ox 96.4 F L 68 16 198/94 H 99 03/23/21 07:45 03/23/21 08:00 03/23/21 07:45 03/23/21 07:45 03/23/21 07:45 Oxygen Flow Rate (L/min) 5 Oxygen Delivery Method Bi-pap Weight: 269 lb 2.951 oz Body Mass Index (BMI) 32.3 Intake & Output: Intake and Output for Last 24 Hours 03/21/21 03/22/21 03/23/21 23:59 23:59 23:59 Intake Total 2112.11 / 2162.81 2465.52 / 2765.52 760 / 760 Output Total 1875 / 2050 1625 / 2360 1135 / 1135 Balance 237.11 / 112.81 840.52 / 405.52 -375 / -375 Lab / Micro Data Result Diagrams: 03/23/21 05:00 03/23/21 05:00 Labs: Laboratory Results - last 24 hr 03/23/21 05:00: WBC 5.0, RBC 3.28 L, Hgb 10.4 L, Hct 32.1 L, MCV 97.9 H, MCH 31.7, MCHC 32.4, RDW Std Deviation 53.0 H, RDW Coeff of Lalita 14.7 H, Plt Count 158, MPV 8.8, Immature Gran % (Auto) 2.800 H, Neut % (Auto) 62.2, Lymph % (Auto) 12.7 L, [place] % (Auto) 17.9 H, Eos % (Auto) 3.8, Baso % (Auto) 0.6, Absolute Neuts (auto) 3.1, Absolute Lymphs (auto) 0.64 L, Nucleated RBC % 0 03/23/21 05:00: Sodium 141, Potassium 3.6, Chloride 104, Carbon Dioxide 33.0 H, Anion Gap 4 L, BUN 23 H, Creatinine 1.15, Estim Creat Clear Calc 89.81, Est GFR (MDRD) Af Amer 86, Est GFR (MDRD) Non-Af 71, BUN/Creatinine Ratio 20.0, Glucose 123 H, Calcium 7.8 L Micro: Microbiology 03/20/21 22:35 Sputum, Induced/Lukens Gram Stain - Final 03/20/21 22:35 Sputum, Induced/Lukens Respiratory Culture - Final 03/20/21 21:10 Urine Catheter - Tovar Urine Culture - Final Culture exhibits no growth. 03/20/21 20:22 Mucosa - Nasopharyngeal Respiratory Panel (PCR) - Final 03/20/21 21:10 Urine Catheter - Tovar Legionella Antigen - Final 03/20/21 21:10 Urine Catheter - Tovar Streptococcus pneumoniae Antigen (M - Final Rhythm Strip Rhythm Strip: Sinus Rhythm Rate: 99 Ectopy: PAC(s) Physical Exam Const alert and oriented x3 Constitutional Narrative: on BIPAP Orientation / Consciousness: lethargic Exam Limitations: no limitations Nutritional Appearance: obese HEENT head/scalp atraumatic and moist oral mucous membranes Head and Scalp: normocephalic Eyes PERRL, EOMs intact bilaterally and conjunctivae normal Neck no lymphadenopathy, supple and no JVD Resp Resp Narrative: midly diminished breath sounds bibasally, no wheezes or crackles. On BIPAP. Cardio regular rate, regular rhythm, S1 normal heart sound, S2 normal heart sound and no murmurs Cardio Narrative: Mitral valve click from mechanical valve GI normal to inspection, nondistended, normoactive bowel sounds, soft to palpation, non-tender and non-distended Extremity normal to inspection, full ROM and no clubbing, cyanosis or edema Peripheral Pulses: Yes pulses 2+ throughout Skin no rashes or lesions noted Neuro CN's II-XII intact bilaterally and moves all extremities Neuro Narrative: lethargic Sensorium / Orientation: awake and alert Psych affect normal Assessment & Plan Assessment/Plan (1) NEO (obstructive sleep apnea): (2) Acute respiratory failure with hypoxia and hypercapnia: (3) Acute chest wall pain: PLAN: #Acute hypoxic and hypercapnic respiratory failure * s/p extubation * now on BIPAP as he was noted to be desaturating * continued to have a mild fever overnight. * on empiric antibiotics with IV vancomycin and IV zosyn. * Titrate oxygen to maintain saturation above 90%. * Breathing treatments with bronchodilators. * Critical care on board * for sleep study before discharge * #Acute metabolic encephalopathy * resolving. * Brain MRI was normal and showed an incidental small superficial focal de velopmental venous abnormality in the right frontal operculum * #[place] on CKD stage III: * Cr is down to 1.15 today, which is around his baseline. * hydrate with IVF normal saline. * avoid nephrotoxic agent * #History of Marfan syndrome with aortic aneurysm: * Stable. CT of the chest was negative for any evidence of dissection * #CAD s/p CABG: Stable. On Plavix and statin as well as carvedilol #Hypertension: On losartan and nifedipine and carvedilol #Mitral valve prolapse status post mitral valve repair: Stable DVT prophylaxis: Lovenox GI prophylaxis: PPI Charges/Coding Visit Charges Inpatient E&M: 88018 Subs Hosp L2
[2021-03-23] MEDS: 0.9% Saline Lock 10 ML Syringe IV (12:40)
[2021-03-23] MEDS: Ondansetron 4 MG/2 ML Vial IV (12:40)
[2021-03-24] VITALS (17 sets, daily range): BP systolic 114–186; BP diastolic 75–105; PULSE 65–90; RESP 16–22; TEMP 36.3–37.1; O2SAT 90–98
[2021-03-24] MEDS: LORazepam 0.5 MG Tablet PO ×3 (01:58→18:06)
--- NOTE | 2021-03-24 02:03 | NURSING ---
Pt anxious and diaphoretic, requesting ativan. After ativan given, blood sugar checked for 111.
[2021-03-24 02:06] LABS: Bedside Glucose 111 mg/dL (70-110)
[2021-03-24] MEDS: hydrALAZINE 20 MG/ML Vial 10 MG IV (04:17)
[2021-03-24] MEDS: Acetaminophen 325 MG Tablet 650 MG PO ×2 (04:17→13:14)
[2021-03-24] MEDS: 0.9% Saline Lock 10 ML Syringe IV ×3 (04:17→10:13)
--- NOTE | 2021-03-24 06:03 | PCM.PN.INT ---
Assessment & Plan Assessment/Plan (1) Acute respiratory failure with hypoxia and hypercapnia: PLAN: RECOMMENDATIONS: 1. Wean supplemental oxygen to maintain saturations at or above 90%. 2. Continue Pap therapy with naps and nightly. 3. Tentative plans for discharge directly to the sleep lab to undergo split-night sleep study. Orders have been placed accordingly. 4. Encourage incentive spirometer use and mobilize patient as tolerated. 5. Follow-up in the pulmonary medicine clinic post discharge. IMPRESSIONS: 1. Acute combined respiratory failure Unclear precipitating etiology for the patient's acute respiratory decompensation. CTA chest showed no evidence for PE. I cannot discount the impact that IV morphine may have played in the setting of renal insufficiency on the patient's respiratory drive. However, following intubation, the patient's acid-base status improved. The patient was initiated on antimicrobials as well after he developed fevers. However, given negative culture data to date, antibiotics were discontinued. Respiratory status improved and he was able to be extubated on March 22. We will plan to continue to wean oxygen to maintain saturations at or above 90%. Encourage incentive spirometer use and mobilize patient as tolerated. 2. Encephalopathy Resolved. Likely hypercarbic in etiology. The patient's hypercapnia resolved with invasive mechanical ventilatory support. Further work-up including brain MRI was unremarkable. 3. Acute on chronic kidney disease Resolved. Likely prerenal in etiology. Continue to monitor urine output for now. Avoid nephrotoxic agents. No indication for renal replacement therapy. 4. History of Marfan syndrome/history of aortic aneurysm/history of CABG/history of mitral valve repair/hypertension Complicates care, management, recovery and prognosis. Continue home medications as indicated. The patient is at high risk for sleep apnea and should have an outpatient polysomnogram completed as well. This note was generated with [employer] dictation software. It may contain incorrect words, spelling, and punctuation that were not noted in checking the note before signing. Subjective Subjective The patient was seen and examined at the bedside this morning. Events from the last 24 hours have been reviewed. The patient is currently afebrile, hemodynamically stable and maintaining appropriate oxygen saturations on 2 L/min via nasal cannula. He is currently documented to be overall net +2.3 L for the hospitalization. The patient has been tentatively scheduled for a sleep study Thursday, with plans to discharge the patient from the hospital directly to the sleep lab. Objective Data Objective Data The patient's most recent lab work, culture data and imaging studies have all been personally reviewed. Infectious work-up has been unrevealing to date. MRI brain was unremarkable. Surface echocardiogram from January 2021 demonstrated severe concentric LVH with an ejection fraction of 55% and stage I diastolic dysfunction. Pulmonary artery systolic pressure was estimated to be 30 mmHg. Vital Signs: Vital Signs Temp Pulse Resp BP Pulse Ox 98.1 F 72 16 165/92 H 97 03/24/21 03:53 03/24/21 04:17 03/24/21 03:53 03/24/21 05:34 03/24/21 03:53 Oxygen Flow Rate (L/min) 2 Oxygen Delivery Method Nasal Cannula Weight: 122.1 kg Body Mass Index (BMI) 32.3 Intake & Output: Intake and Output for Last 24 Hours 03/22/21 03/23/21 03/24/21 23:59 23:59 23:59 Intake Total 2465.52 / 2765.52 1440 / 1500 160 / 160 Output Total 1625 / 2360 1435 / 1435 150 / 150 Balance 840.52 / 405.52 Lab / Micro Data Attestation: I reviewed the patient's lab results. Result Diagrams: 03/24/21 05:46 03/24/21 05:46 Labs: Laboratory Results - last 24 hr 03/24/21 02:01: POC Glucose 111 H Micro: Microbiology 03/21/21 08:40 Blood Culture (Wb) - Right Hand Blood Culture - Preliminary No growth in 48 hours. 03/21/21 08:00 Blood Culture (Wb) - Right Forearm Blood Culture - Preliminary No growth in 48 hours. 03/20/21 22:35 Sputum, Induced/Lukens Gram Stain - Final 03/20/21 22:35 Sputum, Induced/Lukens Respiratory Culture - Final 03/20/21 21:10 Urine Catheter - Tovar Urine Culture - Final Culture exhibits no growth. 03/20/21 20:22 Mucosa - Nasopharyngeal Respiratory Panel (PCR) - Final 03/20/21 21:10 Urine Catheter - Tovar Legionella Antigen - Final 03/20/21 21:10 Urine Catheter - Tovar Streptococcus pneumoniae Antigen (M - Final Rhythm Strip Rhythm Strip: Sinus Rhythm Rate: 99 Ectopy: PAC(s) Physical Exam Const alert and no apparent distress General Appearance: cooperative Nutritional Appearance: obese HEENT normocephalic and head/scalp atraumatic Eyes PERRL, EOMs intact bilaterally and conjunctivae normal Neck supple General: trachea midline Chest inspection of chest normal Resp normal respiratory effort Auscultation: Negative for rales, rhonchi or wheezes Cardio regular rate and regular rhythm GI normal to inspection, nondistended, normoactive bowel sounds Extremity no clubbing, cyanosis or edema Skin no rashes or lesions noted Neuro CN's II-XII intact bilaterally, moves all extremities and no focal motor deficits Psych Mood & Affect: flat affect Charges/Coding Visit Charges Inpatient E&M: 53467 Subs Hosp L2
[2021-03-24 06:06] LABS: Absolute Lymphocyte Count 0.59 X10^3/uL (0.83-4.51); Absolute Neutrophil Count 3.1 X10^3/uL (2.0-7.7); Basophil# 0.03 X10^3/uL; Basophil% 0.6 % (0-1); Eosinophil# 0.19 X10^3/uL; Eosinophils% 3.8 % (0-5); Hemoglobin 11.1 g/dL (13.0-16.5); Lymphocyte # 0.59 X10^3/ul (0.83-4.51); Lymphocyte % 11.8 % (19-41); Mean Corp Hgb Conc 32.6 g/dL (32-36); Mean Corpuscular Hgb 31.6 pg (27.0-32.0); Mean Corpuscular Volume 96.9 fL (80-94); Mean Platelet Vol. 9.2 fl (6.2-12.0); Monocyte# 0.97 X10^3/uL; Monocyte% 19.5 % (0-10); NRBC Flagged by Analyzer 0 % (0-5); Neutrophil % 62.3 % (47-70); POSITIVE DIFFERENTIAL YES; Platelet Count 172 K/mm3 (150-450); RBC Distribution Width CV 14.6 % (11.6-14.6); RBC Distribution Width SD 51.2 fl (35.1-43.9); Red Blood Count 3.51 M/mm3 (4.6-6.2)
[2021-03-24 06:13] LABS: Differential Indicated SCAN CRITERIA MET
[2021-03-24 06:34] LABS: Anion Gap 3 (5-15); BUN 18 mg/dL (7-18); BUN/Creat Ratio 17.8 RATIO (10-20); Calcium,Total 8.5 mg/dL (8.5-10.1); Chloride 104 mmol/L (98-107); Creatinine, Serum 1.01 mg/dL (0.70-1.30); EST Glomerular Filtration Rate 82 mL/min (>60); Est Glom Filt Rate - Afr Amer 100 mL/min (>60); Estimated Creatinine Clearance 102.26 ml/min; Glucose 108 mg/dL (74-106); Sodium Level 141 mmol/L (136-145)
[2021-03-24] MEDS: Albuterol 2.5 MG/3 ML VIAL.NEB. INHALATION ×2 (07:01→18:36)
[2021-03-24] MEDS: Budesonide Respules 0.5 MG/2 ML AMPUL.NEB. INHALATION ×2 (07:01→18:35)
[2021-03-24] MEDS: Enoxaparin 40 MG/0.4 ML Syringe SC (09:02)
[2021-03-24] MEDS: NIFEdipine 60 MG Tablet PO (09:03)
[2021-03-24] MEDS: Losartan Potassium 50 MG Tablet PO ×2 (09:03→22:00)
[2021-03-24] MEDS: Clopidogrel Bisulfate 75 MG Tablet PO (09:03)
[2021-03-24] MEDS: Pantoprazole Sodium 20 MG Tablet PO (09:03)
[2021-03-24] MEDS: Carvedilol 12.5 MG Tablet PO ×2 (09:04→16:47)
[2021-03-24] MEDS: Fenofibrate 145 MG Tablet PO (09:04)
[2021-03-24] MEDS: Ondansetron 4 MG/2 ML Vial IV (10:13)
--- NOTE | 2021-03-24 13:20 | PN.HOSP_ITS ---
Subjective Subjective Patient seen and examined. He was on BiPAP at time of review. He had no active complaints. Review of systems otherwise negative. He has remained hemodynamically stable otherwise. Objective Data Objective Data Vital Signs: Vital Signs Temp Pulse Resp BP Pulse Ox 97.3 F L 75 22 H 114/84 H 94 03/24/21 09:50 03/24/21 11:29 03/24/21 09:50 03/24/21 09:50 03/24/21 10:00 Oxygen Flow Rate (L/min) 2 Oxygen Delivery Method Room Air Weight: 266 lb 1.567 oz Body Mass Index (BMI) 32.3 Intake & Output: Intake and Output for Last 24 Hours 03/22/21 03/23/21 03/24/21 23:59 23:59 23:59 Intake Total 2465.52 / 2765.52 1440 / 1500 160 / 160 Output Total 1625 / 2360 1435 / 1435 150 / 150 Balance 840.52 / 405.52 Lab / Micro Data Result Diagrams: 03/24/21 05:46 03/24/21 05:46 Labs: Laboratory Results - last 24 hr 03/24/21 02:01: POC Glucose 111 H 03/24/21 05:46: WBC 5.0, RBC 3.51 L, Hgb 11.1 L, Hct 34.0 L, MCV 96.9 H, MCH 31.6, MCHC 32.6, RDW Std Deviation 51.2 H, RDW Coeff of Lalita 14.6, Plt Count 172, MPV 9.2, Immature Gran % (Auto) 2.000 H, Neut % (Auto) 62.3, Lymph % (Auto) 11.8 L, [place] % (Auto) 19.5 H, Eos % (Auto) 3.8, Baso % (Auto) 0.6, Absolute Neuts (auto) 3.1, Absolute Lymphs (auto) 0.59 L, Nucleated RBC % 0 03/24/21 05:46: Sodium 141, Potassium 4.0, Chloride 104, Carbon Dioxide 34.0 H, Anion Gap 3 L, BUN 18, Creatinine 1.01, Estim Creat Clear Calc 102.26, Est GFR (MDRD) Af Amer 100, Est GFR (MDRD) Non-Af 82, BUN/Creatinine Ratio 17.8, Glucose 108 H, Calcium 8.5 Micro: Microbiology 03/21/21 08:40 Blood Culture (Wb) - Right Hand Blood Culture - Preliminary No growth in 48 hours. 03/21/21 08:00 Blood Culture (Wb) - Right Forearm Blood Culture - Preliminary No growth in 48 hours. 03/20/21 22:35 Sputum, Induced/Lukens Gram Stain - Final 03/20/21 22:35 Sputum, Induced/Lukens Respiratory Culture - Final 03/20/21 21:10 Urine Catheter - Tovar Urine Culture - Final Culture exhibits no growth. 03/20/21 20:22 Mucosa - Nasopharyngeal Respiratory Panel (PCR) - Final 03/20/21 21:10 Urine Catheter - Tovar Legionella Antigen - Final 03/20/21 21:10 Urine Catheter - Tovar Streptococcus pneumoniae Antigen (M - Final Rhythm Strip Rhythm Strip: Sinus Rhythm Rate: 99 Ectopy: PAC(s) Physical Exam Const alert and oriented x3 Constitutional Narrative: on BIPAP Exam Limitations: no limitations Nutritional Appearance: obese HEENT head/scalp atraumatic and moist oral mucous membranes Head and Scalp: normocephalic Eyes PERRL, EOMs intact bilaterally and conjunctivae normal Neck no lymphadenopathy, supple and no JVD Resp Resp Narrative: midly diminished breath sounds bibasally, no wheezes or crackles. On BIPAP. Cardio regular rate, regular rhythm, S1 normal heart sound, S2 normal heart sound and no murmurs Cardio Narrative: Mitral valve click from mechanical valve GI normal to inspection, nondistended, normoactive bowel sounds, soft to palpation, non-tender and non-distended Extremity normal to inspection, full ROM and no clubbing, cyanosis or edema Peripheral Pulses: Yes pulses 2+ throughout Skin no rashes or lesions noted Neuro CN's II-XII intact bilaterally and moves all extremities Sensorium / Orientation: awake and alert Psych affect normal Assessment & Plan Assessment/Plan (1) NEO (obstructive sleep apnea): (2) Acute respiratory failure with hypoxia and hypercapnia: (3) Acute chest wall pain: PLAN: #Acute hypoxic and hypercapnic respiratory failure * on BIPAP * Antibiotics stopped as no evidence of infection. This was thought to be due to undiagnosed sleep apnea * Titrate oxygen to maintain saturation above 90%. * Breathing treatments with bronchodilators. * Critical care on board * for sleep study before discharge * #Acute metabolic encephalopathy * Resolved. * Brain MRI was normal and showed an incidental small superficial focal developmental venous abnormality in the right frontal operculum * #[place] on CKD stage III: * resolved. * Cr is down to 1.01 * #History of Marfan syndrome with aortic aneurysm: * Stable. CT of the chest was negative for any evidence of dissection * #CAD s/p CABG: Stable. On Plavix and statin as well as carvedilol #Hypertension: On losartan and nifedipine and carvedilol #Mitral valve prolapse status post mitral valve repair: Stable DVT prophylaxis: Lovenox GI prophylaxis: PPI Disposition: Per pulmonology, patient to have sleep study likely tomorrow before anticipated discharge. Charges/Coding Visit Charges Inpatient E&M: 03463 Subs Hosp L2
[2021-03-24 20:07] LABS: Cytoplasmic Ab (C-ANCA) <1:20 titer (Neg:<1:20)
[2021-03-25] VITALS (13 sets, daily range): BP systolic 140–193; BP diastolic 76–109; PULSE 76–87; RESP 16–22; TEMP 36.4–36.8; O2SAT 91–97
[2021-03-25] MEDS: LORazepam 0.5 MG Tablet PO ×4 (01:04→18:53)
[2021-03-25] MEDS: Acetaminophen 325 MG Tablet 650 MG PO ×3 (01:04→14:16)
[2021-03-25 06:01] LABS: Absolute Lymphocyte Count 0.68 X10^3/uL (0.83-4.51); Absolute Neutrophil Count 2.7 X10^3/uL (2.0-7.7); Basophil# 0.02 X10^3/uL; Basophil% 0.4 % (0-1); Eosinophil# 0.16 X10^3/uL; Eosinophils% 3.6 % (0-5); Hematocrit 34.7 % (40-54); Hemoglobin 11.1 g/dL (13.0-16.5); Lymphocyte # 0.68 X10^3/ul (0.83-4.51); Lymphocyte % 15.3 % (19-41); Mean Corpuscular Hgb 31.2 pg (27.0-32.0); Mean Corpuscular Volume 97.5 fL (80-94); Mean Platelet Vol. 9.3 fl (6.2-12.0); Monocyte# 0.81 X10^3/uL; Monocyte% 18.2 % (0-10); NRBC Flagged by Analyzer 0 % (0-5); Neutrophil # 2.72 X10^3/uL (2.7-7.7); Neutrophil % 61.2 % (47-70); Platelet Count 188 K/mm3 (150-450); RBC Distribution Width SD 50.6 fl (35.1-43.9); Red Blood Count 3.56 M/mm3 (4.6-6.2); White Blood Count 4.5 K/mm3 (4.4-11.0)
[2021-03-25 06:49] LABS: Anion Gap 3 (5-15); BUN 18 mg/dL (7-18); BUN/Creat Ratio 16.8 RATIO (10-20); Calcium,Total 8.8 mg/dL (8.5-10.1); Chloride 100 mmol/L (98-107); Creatinine, Serum 1.07 mg/dL (0.70-1.30); EST Glomerular Filtration Rate 77 mL/min (>60); Est Glom Filt Rate - Afr Amer 93 mL/min (>60); Estimated Creatinine Clearance 96.52 ml/min; Glucose 111 mg/dL (74-106); Potassium 3.6 mmol/L (3.5-5.1); Sodium Level 139 mmol/L (136-145)
[2021-03-25] MEDS: Budesonide Respules 0.5 MG/2 ML AMPUL.NEB. INHALATION (07:01)
[2021-03-25] MEDS: Albuterol 2.5 MG/3 ML VIAL.NEB. INHALATION ×2 (07:01→13:16)
[2021-03-25] MEDS: Enoxaparin 40 MG/0.4 ML Syringe SC (07:35)
[2021-03-25] MEDS: Carvedilol 12.5 MG Tablet PO ×2 (07:36→19:00)
[2021-03-25] MEDS: Losartan Potassium 50 MG Tablet PO ×2 (07:36→18:56)
[2021-03-25] MEDS: Fenofibrate 145 MG Tablet PO (07:37)
[2021-03-25] MEDS: Pantoprazole Sodium 20 MG Tablet PO (07:37)
[2021-03-25] MEDS: Clopidogrel Bisulfate 75 MG Tablet PO (07:37)
[2021-03-25] MEDS: NIFEdipine 60 MG Tablet PO (07:37)
--- NOTE | 2021-03-25 08:28 | PCM.PN.INT ---
Assessment & Plan Assessment/Plan (1) Acute respiratory failure with hypoxia and hypercapnia: PLAN: RECOMMENDATIONS: 1. Wean supplemental oxygen to maintain saturations at or above 90%. Obtain walking oximetry today 2. Continue Pap therapy with naps and nightly. Will attempt initiation of Pap therapy YOLY 3. Tentative plans for discharge directly to the sleep lab [facility] to undergo split-night sleep study. Orders have been placed accordingly. 4. Encourage incentive spirometer use and mobilize patient as tolerated. 5. Follow-up in the pulmonary medicine clinic post discharge. IMPRESSIONS: 1. Acute combined respiratory failure Unclear precipitating etiology for the patient's acute respiratory decompensation. CTA chest showed no evidence for PE. I cannot discount the impact that IV morphine may have played in the setting of renal insufficiency on the patient's respiratory drive. However, following intubation, the patient's acid-base status improved. The patient was initiated on antimicrobials as well after he developed fevers. However, given negative culture data to date, antibiotics were discontinued. Respiratory status improved and he was able to be extubated on March 22. We will plan to continue to wean oxygen to maintain saturations at or above 90%. Encourage incentive spirometer use and mobilize patient as tolerated. Anticipate discharge to the sleep center [facility], also will obtain a walking oximetry today. 2. Encephalopathy Resolved. Likely hypercarbic in etiology. The patient's hypercapnia resolved with invasive mechanical ventilatory support. Further work-up including brain MRI was unremarkable. 3. Acute on chronic kidney disease Resolved. Likely prerenal in etiology. Continue to monitor urine output for now. Avoid nephrotoxic agents. No indication for renal replacement therapy. 4. History of Marfan syndrome/history of aortic aneurysm/history of CABG/history of mitral valve repair/hypertension Complicates care, management, recovery and prognosis. Continue home medications as indicated. The patient is at high risk for sleep apnea and should have an outpatient polysomnogram completed as well. Caution with the use of narcotics until patient can be initiated on noninvasive therapy to control sleep apnea. This note was generated with [employer] dictation software. It may contain incorrect words, spelling, and punctuation that were not noted in checking the note before signing. Subjective Subjective Patient did okay overnight. Patient was able to tolerate BiPAP with all sleep. Patient denies any current chest pain, but does have generalized body aches. Patient is reporting slight increase in intensity of chronic pain issues. No dyspnea has been reported. Objective Data Objective Data Vital Signs: Vital Signs Temp Pulse Resp BP Pulse Ox 36.6 C 77 18 193/109 H 95 03/25/21 07:33 03/25/21 07:33 03/25/21 07:33 03/25/21 07:33 03/25/21 07:33 Oxygen Flow Rate (L/min) 2 Oxygen Delivery Method Nasal Cannula Weight: 120.4 kg Body Mass Index (BMI) 32.3 Intake & Output: Intake and Output for Last 24 Hours 03/23/21 03/24/21 03/25/21 23:59 23:59 23:59 Intake Total 1440 / 1500 430 / 430 Output Total 1435 / 1435 550 / 550 Balance -120 / -120 Lab / Micro Data Result Diagrams: 03/25/21 05:14 03/25/21 05:14 Labs: Laboratory Results - last 24 hr 03/25/21 05:14: WBC 4.5, RBC 3.56 L, Hgb 11.1 L, Hct 34.7 L, MCV 97.5 H, MCH 31.2, MCHC 32.0, RDW Std Deviation 50.6 H, RDW Coeff of Lalita 14.0, Plt Count 188, MPV 9.3, Immature Gran % (Auto) 1.300 H, Neut % (Auto) 61.2, Lymph % (Auto) 15.3 L, Bryan % (Auto) 18.2 H, Eos % (Auto) 3.6, Baso % (Auto) 0.4, Absolute Neuts (auto) 2.7, Absolute Lymphs (auto) 0.68 L, Nucleated RBC % 0 03/25/21 05:14: Sodium 139, Potassium 3.6, Chloride 100, Carbon Dioxide 36.0 H, Anion Gap 3 L, BUN 18, Creatinine 1.07, Estim Creat Clear Calc 96.52, Est GFR (MDRD) Af Amer 93, Est GFR (MDRD) Non-Af 77, BUN/Creatinine Ratio 16.8, Glucose 111 H, Calcium 8.8 Micro: Microbiology 03/21/21 08:40 Blood Culture (Wb) - Right Hand Blood Culture - Preliminary No growth in 48 hours. 03/21/21 08:00 Blood Culture (Wb) - Right Forearm Blood Culture - Preliminary No growth in 48 hours. 03/20/21 22:35 Sputum, Induced/Lukens Gram Stain - Final 03/20/21 22:35 Sputum, Induced/Lukens Respiratory Culture - Final 03/20/21 21:10 Urine Catheter - Tovar Urine Culture - Final Culture exhibits no growth. 03/20/21 20:22 Mucosa - Nasopharyngeal Respiratory Panel (PCR) - Final 03/20/21 21:10 Urine Catheter - Tovar Legionella Antigen - Final 03/20/21 21:10 Urine Catheter - Tovar Streptococcus pneumoniae Antigen (M - Final Rhythm Strip Rhythm Strip: Sinus Rhythm Rate: 99 Ectopy: PAC(s) Physical Exam Const alert and no apparent distress General Appearance: cooperative Nutritional Appearance: obese HEENT normocephalic and head/scalp atraumatic Eyes PERRL, EOMs intact bilaterally and conjunctivae normal Neck supple General: trachea midline Chest inspection of chest normal Resp normal respiratory effort Auscultation: Negative for rales, rhonchi or wheezes Cardio regular rate and regular rhythm GI normal to inspection, nondistended, normoactive bowel sounds Extremity no clubbing, cyanosis or edema Skin no rashes or lesions noted Neuro CN's II-XII intact bilaterally, moves all extremities and no focal motor deficits Psych Mood & Affect: flat affect Charges/Coding Visit Charges Inpatient E&M: 61454 Subs Hosp L2
--- NOTE | 2021-03-25 10:20 | CASEMGMT ---
Addendum entered by Ami Head 03/25/21 15:45: This RN CM to room and states no preference for DME company and is agreeable to [employer] for pap and/or O2 as she wants pt to get equipment ovi. Pt being tested by Jonna CONROY at this time for home oxygen need and per Jonna, pt does not qualify for home oxygen at this time. Pt/ voices no further questions/concerns/needs. Cecile in sleep lab and Anita at [facility] [place]. Maribeth CONROY CM Original Note: Pt to go to sleep lab tonight at time of d/c for sleep study. Pt to be tested for home oxygen prior to discharge. Call to Cecile in sleep lab and she states they will use [facility] for PAP therapy and this [facility] would set up same for oxygen, if pt qualifies. Call to Anita at [facility] to notify of possible need for home oxygen, voices understanding and states will save next available concentrator for pt. Jonna CONROY updated on all, voices understanding. CM to follow. Maribeth CONROY CM
--- NOTE | 2021-03-25 11:56 | PCM.DC ---
Discharge Instructions Diet Discharge Diet: Low fat / Low cholesterol and 2000 mg Sodium Diet Activity Discharge Activity: May Not Drive Dressing / Incision Call your doctor if you observe: Fever of 101 or Higher, Coldness, Increased Pain, Numbness or Tingling, Change in Color, Inability to urinate, Inability to have a bowel movement, Shortness of breath, Dizziness, Fainting spells, Swelling in the ankles, Chest pain, Prolonged hiccupping, Increased palpitations (irregular heartbeat), Calf discomfort and Uncontrolled pain Follow Up Care Test Results: Test results from this visit will be discussed in further detail at your follow-up appointment, if applicable. Discharge Plan Admission Admit Date/Time: 03/21/21 07:50 Primary Reason for Your Visit: Acute on chronic hypoxic respiratory failure Attending Provider: Mt Gauthier Primary Care Provider: Rodo Edmonds Consulting Providers: Quintin Morillo Instructions Additional Instructions / Restrictions: Face to your sore left-sided chest wall. You strained the muscles between the ribs. Motrin for pain and inflammation 600 mg 2-3 times a day with food on your stomach. Eastman for more severe pain. Plenty of fluids and fiber to prevent constipation. Follow-up with your outpatient sleep apnea study. Every time in the emergency department he fell asleep. Pulse ox dropped significantly. I think it is pretty obvious that you have sleep apnea. Discharge Orders/Prescriptions Prescriptions: New hydrocodone-acetaminophen 5-325 mg tablet 1 tab PO Q4H PRN (Reason: pain) 4 Days Qty: 14 RF: 0 hydralazine 50 mg Tablet 50 mg PO TID Qty: 90 RF: 0 Continued albuterol sulfate 90 mcg/actuation HFA aerosol inhaler 2 puff INHALATION Q4H PRN PRN (Reason: Wheezing) Qty: 8.5 RF: 3 budesonide-formoterol [Symbicort] 160-4.5 mcg/actuation HFA aerosol inhaler 2 puff inhalation BID RF: 0 zolpidem 10 mg tablet 10 mg PO QHS PRN (Reason: Sleep) RF: 0 rabeprazole 20 MG tablet,delayed release (DR/EC) 20 mg PO DAILY RF: 0 acetaminophen 500 MG tablet 1,000 mg PO DAILY PRN (Reason: Pain) RF: 0 ibuprofen 200 MG tablet 400 - 600 mg PO DAILY PRN (Reason: Pain) RF: 0 clopidogrel 75 MG tablet 75 mg PO DAILY RF: 0 fenofibrate 160 MG tablet 160 mg PO DAILY RF: 0 perphenazine 8 MG tablet 8 mg PO 4X/DAY RF: 0 losartan 50 mg tablet 50 mg PO BID RF: 0 dextroamphetamine-amphetamine 30 mg tablet 30 mg PO DAILY RF: 0 carvedilol [Coreg] 12.5 mg tablet 12.5 mg PO BID Qty: 0 RF: 0 nifedipine 60 mg tablet extended release 24hr 60 mg PO DAILY Qty: 30 RF: 3 (DME) handicap placcard See Rx Instructions .Route .MEDSUPPLY Qty: 1 RF: 0 Referrals / Follow Up: Sleep study @ [facility] [Other] - 03/25/21 8:00 pm Rodo Edmonds MD [Primary Care Provider] - 04/08/21 1:30 pm Quintin Morillo DO [STAFF PHYSICIAN] - Within 2 Weeks Disposition Disposition (needs filled in before D/C Order can be placed): Home, Self Care
--- NOTE | 2021-03-25 11:57 | DS.PCM_ITS ---
Providers Date of Admission: 03/21/21 Date of Discharge: 03/25/21 Primary Care Physician: Dr. Rodo Edmonds MD Consultations 03/20/21 20:36 Consult: Force Adjustment Supervisor / Pulmonary Medicine Routine Consulting Provider: Quintin Morillo Reason for Consult: Resp failure, unclear etiology. EMERGENT Consult: No MD Notified: Yes Date Notified: 03/20/21 Time Notified: 20:07 Method of Notification: cortext Reason For Visit: LEFT CP, HYPOXIA Diagnosis Discharge Diagnosis (1) Acute respiratory failure with hypoxia and hypercapnia: Status: Acute Code(s): J96.01 - Acute respiratory failure with hypoxia; J96.02 - Acute respiratory failure with hypercapnia Medications at Discharge Home Medications rabeprazole 20 mg PO DAILY 03/25/17 acetaminophen 1,000 mg PO DAILY PRN 05/19/18 ibuprofen 400 - 600 mg PO DAILY PRN 05/19/18 clopidogrel 75 mg PO DAILY 08/03/20 fenofibrate 160 mg PO DAILY 08/03/20 perphenazine 8 mg PO 4X/DAY 08/03/20 albuterol sulfate 90 mcg/actuation aerosol inhaler 2 puff INHALATION Q4H PRN PRN #8.5 gm 10/20/20 budesonide-formoterol HFA 160 mcg-4.5 mcg/actuation aerosol inhaler 2 puff INHALATION BID 01/18/21 zolpidem 10 mg tablet 10 mg PO QHS PRN 01/18/21 nifedipine 60 mg tablet,extended release 24 hr 60 mg PO DAILY #30 tab 01/31/21 handicap placcard #1 ea 03/15/21 dextroamphetamine-amphetamine 30 mg PO DAILY 03/20/21 hydrocodone-acetaminophen 1 tab PO Q4H PRN 4 Days #14 tab 03/20/21 losartan 50 mg PO BID 03/20/21 carvedilol [Coreg] 12.5 mg PO BID #0 tab 03/25/21 hydralazine 50 mg PO TID #90 tab 03/25/21 Hospital Course Summary of Care Provided Hospital Course: This 50-year-old gentleman with multiple comor bidities was admitted with left-sided chest pain which was thought to be musculoskeletal or pleuritic in nature, reproducible and localized in the out as shortness of breath. After admission in afternoon, patient respiratory status declined. ABG obtained which showed hypercarbia and hypoxia with significant drowsiness and encephalopathy. Patient was put on BiPAP transferred to ICU and later on intubated. Force Adjustment Supervisor was consulted. CT head does not show acute change. Further hospital course as mentioned below 1. Acute hypoxic and hypercapnic respiratory failure related to medication: Darinel jones was later extubated and currently on BiPAP. Empirically was on antibiotic but was discontinued as no evidence of infection found. Overall seems undiagnosed sleep apnea. Plan is to discharge the patient to sleep lab in the evening. Patient has significant anxiety, depression ADHD and is on fluphenazine and Ativan 0.5 mg every 6 hourly. Force Adjustment Supervisor/coin wrapping machine operator follow-up appreciated. #Acute metabolic encephalopathy Resolved. Brain MRI was normal and showed an incidental small superficial focal developmental venous abnormality in the right frontal operculum #[place] on CKD stage III: resolved. Cr is down to 1.01 #History of Marfan syndrome with aortic aneurysm: Stable. CT of the chest was negative for any evidence of dissection #CAD s/p CABG: Stable. On Plavix and statin as well as carvedilol #Hypertension: On losartan and nifedipine and carvedilol #Mitral valve prolapse status post mitral valve repair: Stable DVT prophylaxis: Lovenox GI prophylaxis: PPI Discharge medication reconciliation done. Discharge follow-up instructions completed. Discharge process discussed with the patient and all questions were answered to patient's satisfaction. Discussed with nursing staff Total time spent, exact 35 minutes on discharge meds reconciliation, examination, coordination of care with nurses and ancillary staff, review of imaging and blood test and discussion with the patient on follow-up instructions Physical Exam Narrative General: Intermittent anxiety attack, sometimes lethargy and sleepy. Morbid obesity. HEENT: Atraumatic, PERRLA, EOMI, Normocephalic Oral: Crowded oropharynx. No Gingival or Mucosal Lesions/ Ulcerations Neck: Supple, No JVD, Negative Carotid Bruits Lungs: Air entry diminished in bilateral lung bases. On BiPAP. Cardiovascular: Midsternal surgical scar. Sinus rhythm. mitral and aortic valve ADDED sound. S1-S2 regular Abdomen: Bowel Sounds Present, Soft, Non Tender, Non-Distended : No renal angle tenderness. No suprapubic tenderness. Extremities: No edema, Capillary Refill Less than 3 Seconds Skin: No rashes, No breakdown Musculoskeletal: No Tenderness to Palpation of Joints or Extremities Neurological: Cranial nerves II-XII grossly intact, DTR 2+/4 and Symmetrical, Neuro grossly intact Psych/Mental Status: Anxiety, depression, history of ADHD Weight / BMI Weight Weight: 265 lb 6.985 oz Body Mass Index (BMI) 32.3 ABG / Lab / Microbiology Data Result Diagrams: 03/25/21 05:14 03/25/21 05:14 Laboratory: Laboratory Results - last 24 hr 03/25/21 05:14: WBC 4.5, RBC 3.56 L, Hgb 11.1 L, Hct 34.7 L, MCV 97.5 H, MCH 31.2, MCHC 32.0, RDW Std Deviation 50.6 H, RDW Coeff of Lalita 14.0, Plt Count 188, MPV 9.3, Immature Gran % (Auto) 1.300 H, Neut % (Auto) 61.2, Lymph % (Auto) 15.3 L, Daggett % (Auto) 18.2 H, Eos % (Auto) 3.6, Baso % (Auto) 0.4, Absolute Neuts (auto) 2.7, Absolute Lymphs (auto) 0.68 L, Nucleated RBC % 0 03/25/21 05:14: Sodium 139, Potassium 3.6, Chloride 100, Carbon Dioxide 36.0 H, Anion Gap 3 L, BUN 18, Creatinine 1.07, Estim Creat Clear Calc 96.52, Est GFR (MDRD) Af Amer 93, Est GFR (MDRD) Non-Af 77, BUN/Creatinine Ratio 16.8, Glucose 111 H, Calcium 8.8 Microbiology: Microbiology 03/21/21 08:40 Blood Culture (Wb) - Right Hand Blood Culture - Preliminary No growth in 48 hours. 03/21/21 08:00 Blood Culture (Wb) - Right Forearm Blood Culture - Preliminary No growth in 48 hours. 03/20/21 22:35 Sputum, Induced/Lukens Gram Stain - Final 03/20/21 22:35 Sputum, Induced/Lukens Respiratory Culture - Final 03/20/21 21:10 Urine Catheter - Tovar Urine Culture - Final Culture exhibits no growth. 03/20/21 20:22 Mucosa - Nasopharyngeal Respiratory Panel (PCR) - Final 03/20/21 21:10 Urine Catheter - Tovar Legionella Antigen - Final 03/20/21 21:10 Urine Catheter - Tovar Streptococcus pneumoniae Antigen (M - Final Meaningful Use Info Meaningful Use Diagnoses (Choose all that apply): None applicable Discharge Plan Admission Admit Date/Time: 03/21/21 07:50 Primary Reason for Your Visit: Acute on chronic hypoxic respiratory failure Attending Provider: [place] Gauthier Primary Care Provider: Rodo Edmonds Consulting Providers: Quintin Morillo Instructions Additional Instructions / Restrictions: Face to your sore left-sided chest wall. You strained the muscles between the ribs. Motrin for pain and inflammation 600 mg 2-3 times a day with food on your stomach. Bailey for more severe pain. Plenty of fluids and fiber to prevent constipation. Follow-up with your outpatient sleep apnea study. Every time in the emergency department he fell asleep. Pulse ox dropped significantly. I think it is pretty obvious that you have sleep apnea. Discharge Orders/Prescriptions Prescriptions: New hydrocodone-acetaminophen 5-325 mg tablet 1 tab PO Q4H PRN (Reason: pain) 4 Days Qty: 14 RF: 0 hydralazine 50 mg Tablet 50 mg PO TID Qty: 90 RF: 0 Continued albuterol sulfate 90 mcg/actuation HFA aerosol inhaler 2 puff INHALATION Q4H PRN PRN (Reason: Wheezing) Qty: 8.5 RF: 3 budesonide-formoterol [Symbicort] 160-4.5 mcg/actuation HFA aerosol inhaler 2 puff inhalation BID RF: 0 zolpidem 10 mg tablet 10 mg PO QHS PRN (Reason: Sleep) RF: 0 rabeprazole 20 MG tablet,delayed release (DR/EC) 20 mg PO DAILY RF: 0 acetaminophen 500 MG tablet 1,000 mg PO DAILY PRN (Reason: Pain) RF: 0 ibuprofen 200 MG tablet 400 - 600 mg PO DAILY PRN (Reason: Pain) RF: 0 clopidogrel 75 MG tablet 75 mg PO DAILY RF: 0 fenofibrate 160 MG tablet 160 mg PO DAILY RF: 0 perphenazine 8 MG tablet 8 mg PO 4X/DAY RF: 0 losartan 50 mg tablet 50 mg PO BID RF: 0 dextroamphetamine-amphetamine 30 mg tablet 30 mg PO DAILY RF: 0 carvedilol [Coreg] 12.5 mg tablet 12.5 mg PO BID Qty: 0 RF: 0 nifedipine 60 mg tablet extended release 24hr 60 mg PO DAILY Qty: 30 RF: 3 (DME) handicap placcard See Rx Instructions .Route .MEDSUPPLY Qty: 1 RF: 0 Referrals / Follow Up: Sleep study @ [facility] [Other] - 03/25/21 8:00 pm Quintin Morillo DO [STAFF PHYSICIAN] - Within 2 Weeks Rodo Edmonds MD [Primary Care Provider] - 04/08/21 1:30 pm Disposition Disposition (needs filled in before D/C Order can be placed): Home, Self Care Charges/Coding Visit Charges Inpatient E&M: 03878 Disch Hosp
[2021-03-25 13:26] LABS: Anti-Jo <0.2 AI (0.0-0.9)
[2021-03-25 13:28] LABS: CCP IgG Antibodies 3 units (0-19); Perinuclear Ab (P-ANCA) <1:20 titer (Neg:<1:20)
[2021-03-25 13:30] LABS: ANTINUCLEAR ANTIBODIES DIRECT Negative (Negative)
[2021-03-25] MEDS: hydrALAZINE 50 MG Tablet PO ×2 (14:16→19:00)
[2021-03-25] MEDS: Ibuprofen 200 MG Tablet 400 MG PO (18:53)
== END 2021-03-25 19:35 | disposition home or self-care (01) | DRG 208 ==
LOC: ED 15:27 → PCU 17:00 → ICU 03-21 05:14 → PCU 03-23 15:20
PROVIDERS: Family Medicine; Internal Medicine Critical Care Medicine; Student in an Organized Health Care Education/Training Program; Admitting Provider Internal Medicine; Emergency Provider Emergency Medicine; PCP Family Medicine; Visit Provider Internal Medicine
DX: J96.01 Acute respiratory failure with hypoxia (principal); G93.41 Metabolic encephalopathy; N17.9 Acute kidney failure, unspecified; Q87.418 Marfan syndrome with other cardiovascular manifestations; J98.11 Atelectasis; I71.9 Aortic aneurysm of unspecified site, without rupture; J96.02 Acute respiratory failure with hypercapnia; T40.2X5A Adverse effect of other opioids, initial encounter; Y92.230 Patient room in hospital as the place of occurrence of the external cause; I12.9 Hypertensive chronic kidney disease with stage 1 through stage 4 chronic kidney disease, or unspecified chronic kidney disease; N18.2 Chronic kidney disease, stage 2 (mild); I25.10 Atherosclerotic heart disease of native coronary artery without angina pectoris; G47.33 Obstructive sleep apnea (adult) (pediatric); F32.A Depression, unspecified; F41.9 Anxiety disorder, unspecified; F90.9 Attention-deficit hyperactivity disorder, unspecified type; E66.01 Morbid (severe) obesity due to excess calories; Z68.32 Body mass index [BMI] 32.0-32.9, adult; Z95.1 Presence of aortocoronary bypass graft; Z95.3 Presence of xenogenic heart valve; Z79.02 Long term (current) use of antithrombotics/antiplatelets; Z79.899 Other long term (current) drug therapy; Z23 Encounter for immunization
CPT/HCPCS: 31500; 31720; 36415; 36600; 70450; 70553; 71045; 71275; 74018; 80048; 80053; 80061; 81002; 82140; 82550; 82728; 82803; 82962; 83615; 83735; 83880; 84145; 84439; 84443; 84478; 84484; 85025; 85379; 85610; 86038; 86140; 86200; 86225; 86235; 86256; 86431; 87040; 87070; 87086; 87205; 87449; 87633; 87635; 92507; 92526; 92610; 93005; 94002; 94003; 94640; 94660; 97162; 97802; 99251; 99285; A9575; J7030; J7050; Q9967; U0005; 90686; A4216; G0463; J2405; J3010; U0003

== ENCOUNTER → 2021-03-25 21:54 | Outpatient (CLI) | payer OTHER, MEDICARE, SELFPAY | PROVIDERS: PCP Family Medicine; Visit Provider Internal Medicine Critical Care Medicine | DX: G47.33 Obstructive sleep apnea (adult) (pediatric) (principal) | CPT/HCPCS: 95811 ==

== ENCOUNTER → 2021-03-26 15:46 | Outpatient (CLI) | payer OTHER, MEDICARE, SELFPAY | PROVIDERS: PCP Family Medicine; Visit Provider Internal Medicine Critical Care Medicine | DX: G47.33 Obstructive sleep apnea (adult) (pediatric) (principal) ==

== ENCOUNTER → 2021-04-13 07:59 | Outpatient (CLI) | payer OTHER, MEDICARE, SELFPAY ==
--- NOTE | 2021-04-13 08:08 | MRI_ITS ---
STUDY: MRI LUMBAR SPINE WITHOUT CONTRAST REASON FOR EXAM: Male, 50 years old. LOW BACK PAIN, bilat leg numbness TECHNIQUE: Standardized fat and water weighted pulse sequences were obtained in the sagittal and axial planes. COMPARISON: None FINDINGS: T12-L1: Normal endplates. Normal disc height, hydration and morphology. Normal bilateral facet joints. Normal central canal and bilateral lateral recesses. Normal bilateral intervertebral neural foramina. Normal lumbar lordosis. There is no substantial scoliosis. Normal conus medullaris that terminates at the L1. L1-2: Disc desiccation but no disc protrusion, spinal stenosis, or neural foraminal stenosis. L2-3: Normal endplates. Normal disc height, hydration and morphology. Normal bilateral facet joints. Normal central canal and bilateral lateral recesses. Normal bilateral intervertebral neural foramina. L3-4: Normal endplates. Normal disc height, hydration and morphology. Normal bilateral facet joints. Normal central canal and bilateral lateral recesses. Normal bilateral intervertebral neural foramina. L4-5: Normal endplates. Normal disc height, hydration and morphology. Normal bilateral facet joints. Normal central canal and bilateral lateral recesses. Normal bilateral intervertebral neural foramina. L5-S1: Normal endplates. Normal disc height, hydration and morphology. Normal bilateral facet joints. Normal central canal and bilateral lateral recesses. Normal bilateral intervertebral neural foramina. Normal visualized sacral ala. 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 Mild friction related edema of the posterior subcutaneous fat. MRI/Spine Lumbar (Routine) IMPRESSION: Disc desiccation but no disc protrusion, spinal stenosis, or neural foraminal stenosis. Electronically Signed: Rodo Warner MD at 13:43 EST Tel , Service support ,
== END ==
PROVIDERS: PCP Family Medicine; Visit Provider Family Medicine
DX: M54.50 Low back pain, unspecified (principal)
CPT/HCPCS: 72148

== ENCOUNTER 2021-07-17 14:15 | Outpatient (CLI) | payer OTHER, MEDICARE, SELFPAY ==
--- NOTE | 2021-07-17 14:20 | CT_ITS ---
EXAM: CT ANGIOGRAPHY ABDOMEN AND PELVIS WITH RUNOFF TO THE LOWER EXTREMITIES WITH INTRAVENOUS CONTRAST CLINICAL INDICATION: BLE pain and numbness TECHNIQUE: Helically acquired angiography images were obtained of the abdomen, pelvis and lower extremities with intravenous contrast using CTA runoff protocol. This CT exam was performed using one or more of the following dose reduction techniques: automated exposure control, adjustment of the mA and/or kV according to patient size, and/or use of iterative reconstruction technique. This report was created using [email or web address] report generation technology. MIP reconstructed images were created and reviewed. CONTRAST: IV 100mL [id number] COMPARISON: None. FINDINGS: VASCULATURE: AORTA: There is mild calcific atherosclerosis. Normal caliber abdominal aorta. No occlusion or significant stenosis. No dissection. CELIAC TRUNK AND MESENTERIC ARTERIES: No acute findings. No occlusion or significant stenosis. No dissection. RENAL ARTERIES: No acute findings. No occlusion or significant stenosis. No dissection. RIGHT ILIAC ARTERIES: No acute findings. No occlusion or significant stenosis. No dissection. RIGHT FEMORAL/POPLITEAL ARTERIES: No acute findings. No occlusion or significant stenosis. No dissection. RIGHT CALF/FOOT ARTERIES: No acute findings. No occlusion or significant stenosis. LEFT ILIAC ARTERIES: No acute findings. No occlusion or significant stenosis. No dissection. LEFT FEMORAL/POPLITEAL ARTERIES: No acute findings. No occlusion or significant stenosis. No dissection. LEFT CALF/FOOT ARTERIES: No acute findings. No occlusion or significant stenosis. LOWER THORAX: Unremarkable. Lung bases are clear. No cardiomegaly. No significant pericardial effusion. ABDOMEN: LIVER: Diffuse hepatic steatosis. No hepatic mass. GALLBLADDER AND BILE DUCTS: Unremarkable. No calcified gallstones. No gallbladder distention or wall edema. No intra- or extrahepatic biliary ductal dilation. PANCREAS: Unremarkable. No focal cystic or solid mass. SPLEEN: Unremarkable. Normal size without focal cystic or solid mass. ADRENALS: Unremarkable. No nodules. KIDNEYS AND URETERS: 2.8 cm simple inferior right renal cyst. No required imaging follow-up needed given high likelihood of benign nature. Normal renal size and position. No hydronephrosis. STOMACH AND BOWEL: Unremarkable. No stomach or bowel distention. No focal inflammatory change. PELVIS: APPENDIX: No evidence of acute appendicitis. BLADDER: Unremarkable. REPRODUCTIVE: Unremarkable as visualized. No mass. ABDOMEN, PELVIS and LOWER EXTREMITIES: INTRAPERITONEAL SPACE: Unremarkable. No ascites or other fluid collection. No free air. BONES/JOINTS: Degenerative changes of the lumbar spine. No suspicious lytic or blastic abnormality. SOFT TISSUES: Surgical clips in the left thigh soft tissues. No discrete abdominal or pelvic wall hernia. LYMPH NODES: Unremarkable. No enlarged lymph nodes. CT/CTA Abd w/Runoff W/WO Contrast IMPRESSION: No arterial dissection or significant stenosis. Electronically Signed: John Belle MD (Brooks) at 7:55 EDT Reading Location ID and State: [facility] / [place] , Service support ,
[2021-07-17 14:31] LABS: CREATININE FINGERSTICK 1.8 mg/dL (0.70-1.30)
== END 2021-07-17 23:59 | disposition home or self-care (01) ==
PROVIDERS: PCP Family Medicine; Referring Provider Internal Medicine Cardiovascular Disease; Visit Provider Internal Medicine Cardiovascular Disease
DX: R60.0 Localized edema (principal); I71.01 Dissection of thoracic aorta; I77.74 Dissection of vertebral artery; I73.9 Peripheral vascular disease, unspecified; I71.2 Thoracic aortic aneurysm, without rupture; I10 Essential (primary) hypertension; Z95.828 Presence of other vascular implants and grafts; Z95.1 Presence of aortocoronary bypass graft; I25.10 Atherosclerotic heart disease of native coronary artery without angina pectoris; E78.5 Hyperlipidemia, unspecified
CPT/HCPCS: 75635; Q9967

== ENCOUNTER 2021-08-06 21:45 | Emergency (ER) | payer OTHER, MEDICARE, SELFPAY ==
[2021-08-06] VITALS (8 sets, daily range): BP systolic 141–229; BP diastolic 76–111; PULSE 79–87; RESP 19–30; TEMP 36.8; O2SAT 92–99; BMI 35.4
--- NOTE | 2021-08-06 21:53 | EKG12_ITS ---
Test Reason : CP Blood Pressure : / mmHG Vent. Rate : 082 BPM Atrial Rate : 082 BPM P-R Int : 184 ms QRS Dur : 124 ms QT Int : 422 ms P-R-T Axes : 037 010 071 degrees QTc Int : 493 ms Normal sinus rhythm Left ventricular hypertrophy Abnormal ECG Confirmed by MIRANDA HARRIS, MARIUSZ ([id number]), editorial clerk RM FROST ([id number]) on 08/07/2021 2:12:59 PM Referred By: CORRINE Confirmed By:MARIUSZ JEAN MD
[2021-08-06] MEDS: morphine 8 MG/ML Syringe 6 MG IV ×3 (22:02→23:34)
[2021-08-06] MEDS: Ondansetron 4 MG/2 ML Vial IV (22:02)
[2021-08-06 22:05] LABS: Absolute Lymphocyte Count 1.03 X10^3/uL (0.83-4.51); Absolute Neutrophil Count 3.5 X10^3/uL (2.0-7.7); Basophil# 0.05 X10^3/uL; Basophil% 0.9 % (0-1); Eosinophil# 0.12 X10^3/uL; Eosinophils% 2.1 % (0-5); Hematocrit 38.8 % (40-54); Hemoglobin 12.8 g/dL (13.0-16.5); Lymphocyte # 1.03 X10^3/ul (0.83-4.51); Lymphocyte % 17.8 % (19-41); Mean Corpuscular Hgb 31.1 pg (27.0-32.0); Mean Corpuscular Volume 94.2 fL (80-94); Mean Platelet Vol. 9.4 fl (6.2-12.0); Monocyte# 0.92 X10^3/uL; Monocyte% 15.9 % (0-10); NRBC Flagged by Analyzer 0 % (0-5); Neutrophil # 3.47 X10^3/uL (2.7-7.7); Platelet Count 274 K/mm3 (150-450); RBC Distribution Width CV 14.4 % (11.6-14.6); Red Blood Count 4.12 M/mm3 (4.6-6.2); White Blood Count 5.8 K/mm3 (4.4-11.0)
--- NOTE | 2021-08-06 22:25 | CT_ITS ---
INDICATION: possible dissection EXAMINATION: CTA NECK - CTA Chest and CTA Abdomen and Pelvis W/ Contrast Injection (and W/O Contrast Images if performed) TECHNIQUE: Postcontrast enhanced helical CT through the chest, abdomen and pelvis is obtained with multiplanar 2.5 mm slice reconstructions using soft tissue algorithm. A radiation dose optimization technique was used for this scan. IV Contrast dosage and agent: 100 mL of [id number]. COMPARISON: CT abdomen and pelvis 07/17/2021 and CTA chest 03/20/2021. FINDINGS: VASCULATURE: AORTA: No luminal graft extends from just after the left subclavian vein distal to area of fusiform dilation of the aortic arch and extends 8.5 cm in length. Fusiform dilation aortic arch, proximal graft measures 4.1 cm in diameter. This is unchanged in appearance. New compared to the prior exam is an intramural hematoma extending from just distal to the endograft to the origin of the renal arteries. The intramural hematoma decreases in size distal to the celiac trunk. There are 2 areas of intramural blood pool; one seen anteriorly, immediately distal to the endograft and measuring less than 1 cm in diameter. The second, is seen just above the renal arteries and measures 4 cm in length and roughly 3 mm in width. These do not appear to extend as ulcers but are likely associated with penetrating vessels. There is a normal three-vessel aortic arch. Note of a highly tortuous left subclavian artery. The dilated descending thoracic aorta measures 4.4 x 4.2 cm in maximum diameter, measured just below the endoluminal graft. Below the bilateral renal arteries, the bowel aorta is normal. Bilateral common iliac arteries, internal iliac, external iliac and proximal femoral arteries are normal. Celiac trunk, superior mesenteric and inferior mesenteric arteries are all within normal limits. Pulmonary arteries are within normal limits with no embolism. No mediastinal or hilar lymphadenopathy. No coronary artery calcifications. Heart is within normal size limits. No pericardial effusion. Decreased left lung volumes unchanged. Bilateral bibasilar atelectasis is noted. No pleural effusion, nodule or mass. Elevation. ABDOMEN: LIVER: Diffuse hepatic steatosis. No hepatic mass. GALLBLADDER AND BILE DUCTS: Unremarkable. No calcified gallstones. No gallbladder distention or wall edema. No intra- or extrahepatic biliary ductal dilation. PANCREAS: Mild fatty atrophy. No mass or inflammatory changes. No ductal dilation. SPLEEN: Unremarkable. Normal size without focal cystic or solid mass. ADRENALS: Normal. KIDNEYS AND URETERS: 2.3 cm left lower pole renal fluid density, unchanged compared to prior exam; benign cyst. 4 mm partially exophytic cyst seen in the superior pole right kidney is too small to characterize however likely simple cyst. No follow-up indicated. STOMACH AND BOWEL: Unremarkable. No stomach or bowel distention. No focal inflammatory change. PELVIS: APPENDIX: No evidence of acute appendicitis. BLADDER: Unremarkable. REPRODUCTIVE: Unremarkable as visualized. No mass. ABDOMEN, PELVIS and LOWER EXTREMITIES: INTRAPERITONEAL SPACE: Unremarkable. No ascites or other fluid collection. No free air. BONES/JOINTS: L1-2 and L2-3 moderately advanced degenerative disc and endplate changes, unchanged. No lytic or blastic bone lesion. No fracture. Prior sternotomy wires thoracotomy. SOFT TISSUES: Surgical clips in the left thigh soft tissues. No discrete abdominal or pelvic wall hernia. LYMPH NODES: Unremarkable. No enlarged lymph nodes. IMPRESSION: No arterial dissection or significant stenosis. CT/CTA Chst, Abd, Pel W and/or WO IMPRESSION: New, type B, intramural hematoma extending from the level of the distal endograft to the level of the renal arteries measuring maximum of 4.4 x 4.2 cm just distal to the graft. 2 areas of intramural blood pool without penetrating ulcer. Chronic findings as above. N.B. : The above Results were Read Back by Anton Nunes DO to Dr. Christopher MD, and understanding confirmed on 08/06/2021 23:47:52 (ET). Electronically Signed: Anton Nunes DO at 23:48 EDT ,
[2021-08-06 22:29] LABS: AST(SGOT) 97 U/L (15-37); Alanine Aminotransfer ALT/SGPT 116 U/L (16-61); Albumin, Serum 3.6 g/dL (3.2-5.0); Alkaline Phosphatase 88 U/L (45-117); Bilirubin, Direct 0.31 mg/dL (0.00-0.30); Globulin 3.6 g/dL (2.2-4.2); Protein, Total 7.2 g/dL (6.4-8.2)
[2021-08-06 22:33] LABS: D-Dimer Quantitative (DVT/PE) 4.86 FEU/ug/m (0.27-0.49)
[2021-08-06 22:35] LABS: Anion Gap 6 (5-15); BUN 13 mg/dL (7-18); BUN/Creat Ratio 9.4 RATIO (10-20); Calcium,Total 8.7 mg/dL (8.5-10.1); Chloride 104 mmol/L (98-107); Creatinine, Serum 1.39 mg/dL (0.70-1.30); EST Glomerular Filtration Rate 57 mL/min (>60); Est Glom Filt Rate - Afr Amer 69 mL/min (>60); Estimated Creatinine Clearance 76.32 ml/min; Glucose 175 mg/dL (74-106); Lipase 243 U/L (73-393); Potassium 3.6 mmol/L (3.5-5.1); Sodium Level 137 mmol/L (136-145); Thyroid Stim Hormone (TSH) 7.71 uIU/mL (0.358-3.74); Troponin-I HS (w/2H Reflex) 33 pg/mL (3.0-78.0)
[2021-08-06 22:37] LABS: Prothrombin Time (Protime)PT. 12.4 SECONDS (11.7-14.9)
--- NOTE | 2021-08-06 22:52 | ED.VIS.CHEST ---
HPI History of Present Illness Chief Complaint: Chest Pain Informant: patient and spouse/S.O. Onset/Context/Timing Onset: Today Activity at onset: sudden Timing: Continuous Quality: Positive for Heaviness and Pain Location: Substernal and Left Chest Current Severity: Severe Maximum Severity: Severe Worsened By: Nothing Relieved By: Nothing Associated Symptoms: Positive for Diaphoresis; Negative for Nausea, Vomiting, Cough, Fever, Lightheadedness, Acid Reflux and Palpitations Narrative Narrative: 50-year-old male history of hypertension prior aortic dissection which was surgically repaired and a history of Marfan's. States he was feeling fine has been doing well recently. About 20 minutes prior to arrival he had sudden onset of midsternal chest pain rating to his left shoulder and into his back. He became diaphoretic. He denies any recent illness. His aortic dissection prior surgery was in 2010 with a single-vessel bypass at that time. 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 Essential (primary) hypertension (05/20/18) GERD (gastroesophageal reflux disease) Hyperkalemia Hyperlipidemia Hypertensive urgency Hypoxia Infection of external auditory canal Marfans syndrome Nonobstructive atherosclerosis of coronary artery NEO (obstructive sleep apnea) Uncontrolled hypertension Home Medications rabeprazole [AcipHex] 20 mg PO DAILY 03/25/17 [History Last Taken 03/19/21] acetaminophen 1,000 mg PO DAILY PRN 05/19/18 [History Last Taken 05/19/18] ibuprofen 400 - 600 mg PO DAILY PRN 05/19/18 [History Last Taken 05/19/18] clopidogrel 75 mg PO DAILY 08/03/20 [History Last Taken 03/19/21] fenofibrate 160 mg PO DAILY 08/03/20 [History Last Taken 03/19/21] albuterol sulfate 90 mcg/actuation aerosol inhaler 2 puff INHALATION Q4H PRN PRN #8.5 gm 10/20/20 [Rx Last Taken 03/19/21] budesonide-formoterol HFA 160 mcg-4.5 mcg/actuation aerosol inhaler 2 puff INHALATION BID 01/18/21 [History Last Taken 03/19/21] zolpidem 10 mg tablet 10 mg PO QHS PRN 01/18/21 [History Last Taken Unknown] handicap placcard #1 ea 03/15/21 [Rx Last Taken Unknown] dextroamphetamine-amphetamine [Adderall] 30 mg PO DAILY 03/20/21 [History Last Taken 03/19/21] losartan 50 mg PO BID 03/20/21 [History Last Taken 03/19/21] carvedilol [Coreg] 12.5 mg PO BID #0 tab 03/25/21 [Rx Last Taken 03/19/21] hydralazine 50 mg tablet 50 mg PO TID #270 tab 04/24/21 [Rx Last Taken Unknown] nifedipine 60 mg tablet,extended release 24 hr 60 mg PO DAILY #90 tab 06/12/21 [Rx Last Taken Unknown] potassium chloride [Klor-Con 10] 10 meq PO DAILY 08/06/21 [History Last Taken Unknown] Allergy/AdvReac Type Severity Reaction Status Date / Time ciprofloxacin [From Cipro] Allergy Rash Verified 08/06/21 21:48 ciprofloxacin HCl Allergy Rash Verified 08/06/21 21:48 [From Cipro] sulfamethoxazole Allergy Rash Verified 08/06/21 21:48 [From Bactrim] tramadol Allergy Itching Verified 08/06/21 21:48 trimethoprim [From Bactrim] Allergy Rash Verified 08/06/21 21:48 Family History Son Marfans syndrome Daughter Marfans syndrome Father Hypertension Grandfather Heart disease Myocardial infarction CVA (cerebral vascular accident) Grandmother Heart disease Surgical History H/O coronary artery bypass surgery (03/08/11) History of hand surgery History of left heart catheterization (12/14/20) History of mitral valve repair (03/08/11) History of open reduction and internal fixation (ORIF) procedure (2016) History of surgical fusion joint History of tonsillectomy Hx of ascending aorta replacement (03/08/11) Social History (Updated 08/06/21 @ 23:[address] Brooke Spain MD) household members: spouse Smoking Status: Never smoker alcohol intake: current alcohol intake frequency: a few times a month substance use type: does not use ROS ROS ED ROS Narrative Chest pain. Diaphoresis. Review of Systems ROS Unobtainable: Denies due to encephalopathy Constitutional Constitutional ED: Denies fever(s) Eyes Eyes: Denies none ENT ENT ED: Denies ear pain Cardiovascular Cardiovascular: Reports as per HPI and chest pain Respiratory/Chest Respiratory/Chest: Denies cough or dyspnea Gastrointestinal Gastrointestinal: Denies abdominal pain, nausea or vomiting Genitourinary Genitourinary ED: Denies dysuria Musculoskeletal Musculoskeletal: Denies myalgias Integumentary Denies rash Neurologic Neurologic: Denies headache(s) Psychiatric Psychiatric: Denies depression Endocrine Endocrinology: Denies polyuria Hematologic/Lymphatic Hematologic/Lymphatic: Denies easy bruising Allergic/Immunologic Allergic/Immunologic ED: Denies urticaria EXAM Physical Exam Narrative Exam Narrative: 50-year-old male presents complaint is pain with a significant elevated blood pressure of 229/111. O2 sat 92%. Afebrile. Patient is in pain and diaphoretic. H EENT exam unremarkable. Neck nontender. Lungs are clear. Heart regular rhythm rate about 85 no murmur. Chest wall nontender. Abdomen soft nontender. Moving all 4 extremities. Equal symmetrical radial pulses. Neurologically he is awake and alert. He is answering questions and following commands. He has no focal motor deficits. Const Vital Signs: 08/06/21 21:46 08/06/21 21:49 08/06/21 21:51 Temperature 98.2 F Temperature Source Oral Pulse Rate 87 Respiratory Rate 30 H Blood Pressure 229/111 H Blood Pressure Mean 150 Pulse Ox 92 99 Oxygen Delivery Method Room Air Nasal Cannula Oxygen Flow Rate (L/min) 5 08/06/21 21:59 08/06/21 22:12 08/06/21 22:33 Temperature Temperature Source Pulse Rate 82 Respiratory Rate 19 H Blood Pressure 176/92 H 151/81 H Blood Pressure Mean 120 104 Pulse Ox 98 97 Oxygen Delivery Method Nasal Cannula Nasal Cannula Oxygen Flow Rate (L/min) 5 5 08/06/21 23:06 Temperature Temperature Source Pulse Rate 79 Respiratory Rate 23 H Blood Pressure 141/76 H Blood Pressure Mean 97 Pulse Ox 96 Oxygen Delivery Method Nasal Cannula Oxygen Flow Rate (L/min) 5 Chest pain and diaphoretic. Positive well nourished, well developed and obese; Negative for cachectic, contractures or unkempt General Appearance ED: well developed and pallor; Negative for unkempt, cachectic, contractures or NAD Nutritional Appearance: obese; Negative for cachectic HEENT Reports moist mucous membranes normocephalic and atraumatic Eyes PERRL and EOMs intact bilaterally General Eye ED: Negative for pale conjunctiva or scleral icterus Neck no lymphadenopathy, supple and no JVD General: Negative for tenderness Chest Wall inspection of chest normal and palpation of chest normal Chest: Negative for tenderness Resp normal respiratory effort and clear to auscultation bilaterally Effort and Inspection: respiratory distress Auscultation: Negative for rales, rhonchi or wheezes Cardio regular rate, regular rhythm, S1 normal heart sound, S2 normal heart sound and no murmurs Rate: Negative for bradycardia or tachycardic GI normal to inspection, nondistended, normoactive bowel sounds, soft to palpation, non-tender, non-distended and no masses Auscultation: Negative for hyperactive bowel sounds Back/Spine no CVA tenderness and no thoracic nor lumbar tenderness General Back: Negative for CVA tenderness Extremity normal to inspection General Extremety ED: Negative for edema, pulses abnormal or tenderness General Extremity: Negative for edema or pulses abnormal Neuro oriented x3 Sensorium / Orientation: awake, alert, oriented to place and oriented to time Motor Exam: strength 5/5 throughout Psych mental status grossly normal Appearance: Negative for unkempt Attitude: No agitated Mood & Affect: Negative for depressed or tearful Skin no rashes or lesions noted and no wounds Skin Narrative: Pale diaphoretic skin. General Skin Exam: pallor; Negative for jaundice Rashes: No rashes noted Trauma: Negative for abrasion or puncture Heart Score History: Moderately Suspicious ECG: Nonspecific Repolarization Age: >45 - <65 years Risk Factors: 1 or 2 Risk Factors Troponin: </= Normal Limit Score: 4 MDM MDM MDM Narrative Medical decision making narrative: 50-year-old male with elevated blood pressure, chest pain with a history of a prior dissection surgically repaired. Patient is diaphoretic and pain am concerned this could be a dissection versus an KS versus hypertensive urgency or emergency versus other etiologies. Patient cardiac work-up. I have also ordered a CTA of his chest and abdomen for possible dissection. He is also being started on a nitroprusside drip for his elevated blood pressure. Given morphine and Zofran for pain. Multiple repeat exams patient looks clinically much better. After morphine and control of his blood pressure his pain currently is resolved at 11:05 PM. His blood pressure is around 150/80. He is currently comfortable. We have gone over his lab results. Were awaiting the CTA of his chest and abdomen. I have reviewed it. I see an old dissection and repair I do not see any acute dissection. Radiologist has read the film he called me and the patient has an aortic intramural hematoma at the descending aorta above the renals. I discussed that with the patient and his . I have called [facility] transfer line and spoke to their creative specialist on-call. They are fine with the patient being on nitroprusside drip. He did not want any additional medications. They are checking whether to see if there helicopter can come down to transfer the patient. Lab Data Attestation: I reviewed the patient's lab results. Lab results narrative: CBC shows a white count of 5. H&H 12.8 and 38. Electrolytes show a gap of 6 normal BUN of 13 creatinine 1.39. Glucose 175. Liver enzymes unremarkable other than direct bilirubin is 0.3 AST of 97 ALT of 116. Lipase is normal at 243. requested a TSH be done and it is elevated 7.71. PT, INR PTT are unremarkable. D-dimer is elevated at 4.86. Labs: Laboratory Results - last 24 hr 08/06/21 08/06/21 08/06/21 21:50 21:50 21:50 WBC 5.8 RBC 4.12 L Hgb 12.8 L Hct 38.8 L MCV 94.2 H MCH 31.1 MCHC 33.0 RDW Std Deviation 49.0 H RDW Coeff of Lalita 14.4 Plt Count 274 MPV 9.4 Immature Gran % (Auto) 3.300 H Neut % (Auto) 60.0 Lymph % (Auto) 17.8 L [place] % (Auto) 15.9 H Eos % (Auto) 2.1 Baso % (Auto) 0.9 Absolute Neuts (auto) 3.5 Absolute Lymphs (auto) 1.03 Nucleated RBC % 0 PT INR APTT D-Dimer Quant (PE/DVT) Sodium 137 Potassium 3.6 Chloride 104 Carbon Dioxide 27.0 Anion Gap 6 BUN 13 Creatinine 1.39 H Estim Creat Clear Calc 76.32 Est GFR (MDRD) Af Amer 69 Est GFR (MDRD) Non-Af 57 L BUN/Creatinine Ratio 9.4 L Glucose 175 H Calcium 8.7 Total Bilirubin 0.60 Direct Bilirubin 0.31 H AST 97 H ALT 116 H Alkaline Phosphatase 88 Troponin I High Sens 33 Total Protein 7.2 Albumin 3.6 Globulin 3.6 Lipase 243 TSH 7.71 H 08/06/21 21:50 WBC RBC Hgb Hct MCV MCH MCHC RDW Std Deviation RDW Coeff of Lalita Plt Count MPV Immature Gran % (Auto) Neut % (Auto) Lymph % (Auto) Sau[place] % (Auto) Eos % (Auto) Baso % (Auto) Absolute Neuts (auto) Absolute Lymphs (auto) Nucleated RBC % PT 12.4 INR 1.0 APTT 26.0 D-Dimer Quant (PE/DVT) 4.86 H* Sodium Potassium Chloride Carbon Dioxide Anion Gap BUN Creatinine Estim Creat Clear Calc Est GFR (MDRD) Af Amer Est GFR (MDRD) Non-Af BUN/Creatinine Ratio Glucose Calcium Total Bilirubin Direct Bilirubin AST ALT Alkaline Phosphatase Troponin I High Sens Total Protein Albumin Globulin Lipase TSH Radiography Diagnostic Testing: Clinical Impression(s) from Imaging Studies Chest/Abdomen/Pelvis CTA 08/06/21 22:25 IMPRESSION: New, type B, intramural hematoma extending from the level of the distal endograft to the level of the renal arteries measuring maximum of 4.4 x 4.2 cm just distal to the graft. 2 areas of intramural blood pool without penetrating ulcer. Chronic findings as above. N.B. : The above Results were Read Back by Anton Nunes DO to Dr. Christopher MD, and understanding confirmed on 08/06/2021 23:47:52 (ET). Electronically Signed: Anton Nunes DO at 23:48 EDT , Rhythm Strip Rhythm Strip: Sinus Rhythm Rate: 82 EKG Initial EKG: Attestation: I personally reviewed and interpreted this EKG as follows: Interpretation: Sinus Rhythm and No Acute Injury Pattern Comments: Normal sinus rhythm rate 82 no acute signs of KS or ischemia. Follow-up EKG: Attestation: I personally reviewed and interpreted this EKG as follows: Interpretation: Sinus Rhythm and No Acute Injury Pattern Comments: Repeat EKG shows a normal sinus rhythm rate of 76. No acute signs of KS or ischemia no significant change from the first. Prior EKG tracings: available for review Prior: Unchanged Discharge Plan Triage Chief Complaint: Chest Pain ED Provider: Arturo White Dx/Rx/DC Orders Clinical Impression: Chest pain, Marfan syndrome, History of aortic dissection, Intramural aortic hematoma, Hypertensive emergency Prescriptions: No Action albuterol sulfate 90 mcg/actuation HFA aerosol inhaler 2 puff INHALATION Q4H PRN PRN (Reason: Wheezing) Qty: 8.5 RF: 3 budesonide-formoterol [Symbicort] 160-4.5 mcg/actuation HFA aerosol inhaler 2 puff inhalation BID RF: 0 zolpidem 10 mg tablet 10 mg PO QHS PRN (Reason: Sleep) RF: 0 rabeprazole [AcipHex] 20 MG tablet,delayed release (DR/EC) 20 mg PO DAILY RF: 0 acetaminophen 500 MG tablet 1,000 mg PO DAILY PRN (Reason: Pain) RF: 0 ibuprofen 200 MG tablet 400 - 600 mg PO DAILY PRN (Reason: Pain) RF: 0 clopidogrel 75 MG tablet 75 mg PO DAILY RF: 0 fenofibrate 160 MG tablet 160 mg PO DAILY RF: 0 losartan 50 mg tablet 50 mg PO BID RF: 0 dextroamphetamine-amphetamine [Adderall] 30 mg tablet 30 mg PO DAILY RF: 0 carvedilol [Coreg] 12.5 mg tablet 12.5 mg PO BID Qty: 0 RF: 0 potassium chloride [Klor-Con 10] 10 mEq Tablet Extended Release 10 meq PO DAILY RF: 0 (DME) handicap placcard See Rx Instructions .Route .MEDSUPPLY Qty: 1 RF: 0 hydralazine 50 mg tablet 50 mg PO TID Qty: 270 RF: 3 nifedipine 60 mg tablet extended release 24hr 60 mg PO DAILY Qty: 90 RF: 3 Primary Care Provider: Rodo Edmonds Referrals: Rodo Edmonds MD [Primary Care Provider] - Disposition Disposition: Acute Care Hospital
--- NOTE | 2021-08-06 23:07 | ED.RN ---
ASA not given per Dr White.
--- NOTE | 2021-08-06 23:09 | EKG12_ITS ---
Test Reason : REPEAT EKG Blood Pressure : / mmHG Vent. Rate : 076 BPM Atrial Rate : 076 BPM P-R Int : 188 ms QRS Dur : 112 ms QT Int : 438 ms P-R-T Axes : 010 010 083 degrees QTc Int : 492 ms Normal sinus rhythm Nonspecific ST abnormality Prolonged QT Abnormal ECG When compared with ECG of 06-AUG-2021 21:52, MANUAL COMPARISON REQUIRED, DATA IS UNCONFIRMED Confirmed by JAYLYN HARRIS, GIOVANY ([id number]), sound editor KELTON JAIN ([id number]) on 08/16/2021 1:29:29 PM Referred By: SNEHAL Confirmed By:KELLEN DE LA O MD
--- NOTE | 2021-08-06 23:14 | HP.PCM.HOS_ITS ---
HPI - General General Date of Admission: 08/06/21 Date of Service: 08/06/21 Chief Complaint: Chest pain, dyspnea. 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 Patient states that he is otherwise been feeling fine. He does report that he has had o ngoing abdominal bloating and distention and has been working this up outpatient and per review of labs he has had chronically mildly elevated LFTs. Upon evaluation in the ED patient reports that his pain is starting to trend back upwards and currently rates it 5.5 out of 10 in severity work-up in the ED included T 98.2, heart rate 87, BP initially 229/111, respiratory rate 30, initially 92% on room air however given respiratory distress and worsening status patient transition to nasal cannula requiring 5 L nasal cannula to maintain 98% on room air, CBC with WC 5.8, hemoglobin 12.8, platelet 274 with significant increased immature granulocytes which appears chronic on prior labs, coags unremarkable, D-dimer 4.8, CMP with BUN/creatinine 13/1.39, glucose 175, D bili 0.31, AST/ALT 97/116, troponin 33, lipase 243, TSH 7.71, CTA chest, abdomen, pelvis with read pending upon requested evaluation of patient with plan for admission if no acute findings however if any concerning findings would plan transfer to tertiary facility per discussion with ED physician and patient/family, EKG with sinus rhythm with no acute evidence of ischemia with repeat EKG similar. In the ED patient administered aspirin 325 mg p.o. x1, several rounds of morphine, Zofran 4 mg x 1 and initiated on a nitroprusside drip. [facility] Medical History Abnormal stress test Acute maxillary sinusitis, unspecified Apnea, sleep Dissecting aneurysm of ascending aorta Dissection of vertebral artery Essential (primary) hypertension (05/20/18) GERD (gastroesophageal reflux disease) Hyperkalemia Hyperlipidemia Hypertensive urgency Hypoxia Infection of external auditory canal Marfans syndrome Nonobstructive atherosclerosis of coronary artery NEO (obstructive sleep apnea) Uncontrolled hypertension Home Medications rabeprazole [AcipHex] 20 mg PO DAILY 03/25/17 [History Last Taken 03/19/21] acetaminophen 1,000 mg PO DAILY PRN 05/19/18 [History Last Taken 05/19/18] ibuprofen 400 - 600 mg PO DAILY PRN 05/19/18 [History Last Taken 05/19/18] clopidogrel 75 mg PO DAILY 08/03/20 [History Last Taken 03/19/21] fenofibrate 160 mg PO DAILY 08/03/20 [History Last Taken 03/19/21] albuterol sulfate 90 mcg/actuation aerosol inhaler 2 puff INHALATION Q4H PRN PRN #8.5 gm 10/20/20 [Rx Last Taken 03/19/21] budesonide-formoterol HFA 160 mcg-4.5 mcg/actuation aerosol inhaler 2 puff INHALATION BID 01/18/21 [History Last Taken 03/19/21] zolpidem 10 mg tablet 10 mg PO QHS PRN 01/18/21 [History Last Taken Unknown] handicap placcard #1 ea 03/15/21 [Rx Last Taken Unknown] dextroamphetamine-amphetamine [Adderall] 30 mg PO DAILY 03/20/21 [History Last Taken 03/19/21] losartan 50 mg PO BID 03/20/21 [History Last Taken 03/19/21] carvedilol [Coreg] 12.5 mg PO BID #0 tab 03/25/21 [Rx Last Taken 03/19/21] hydralazine 50 mg tablet 50 mg PO TID #270 tab 04/24/21 [Rx Last Taken Unknown] nifedipine 60 mg tablet,extended release 24 hr 60 mg PO DAILY #90 tab 06/12/21 [Rx Last Taken Unknown] potassium chloride [Klor-Con 10] 10 meq PO DAILY 08/06/21 [History Last Taken Unknown] Allergy/AdvReac Type Severity Reaction Status Date / Time ciprofloxacin [From Cipro] Allergy Rash Verified 08/06/21 21:48 ciprofloxacin HCl Allergy Rash Verified 08/06/21 21:48 [From Cipro] sulfamethoxazole Allergy Rash Verified 08/06/21 21:48 [From Bactrim] tramadol Allergy Itching Verified 08/06/21 21:48 trimethoprim [From Bactrim] Allergy Rash Verified 08/06/21 21:48 Family History Son Marfans syndrome Daughter Marfans syndrome Father Hypertension Grandfather Heart disease Myocardial infarction CVA (cerebral vascular accident) Grandmother Heart disease Surgical History H/O coronary artery bypass surgery (03/08/11) History of hand surgery History of left heart catheterization (12/14/20) History of mitral valve repair (03/08/11) History of open reduction and internal fixation (ORIF) procedure (2016) History of surgical fusion joint History of tonsillectomy Hx of ascending aorta replacement (03/08/11) Social History (Updated 08/06/21 @ 23:[address] Brooke Spain MD) household members: spouse Smoking Status: Never smoker alcohol intake: current alcohol intake frequency: a few times a month substance use type: does not use ROS ROS Narrative Admission Review of Systems: CONSTITUTIONAL: No weight loss, fever, chills, + weakness or fatigue. HEENT: Eyes: No visual loss, blurred vision, double vision or yellow sclerae. Ears, Nose, Throat: No hearing loss, sneezing, congestion, runny nose or sore throat. SKIN: No rash or itching, lesions, wounds. CARDIOVASCULAR: + Chest pain, chest pressure or chest discomfort, No palpitations, edema, orthopnea, syncopal events. RESPIRATORY: + Shortness of breath, cough or sputum, wheezing, hemoptysis. GASTROINTESTINAL: No anorexia, nausea, vomiting or diarrhea, abdominal pain, melena, BRBPR. GENITOURINARY: No dysuria, frequency, urgency or retention. NEUROLOGICAL: No headache, dizziness, syncope, paralysis, ataxia, numbness or tingling in the extremities, focal weakness, change in bowel or bladder control, seizure. MUSCULOSKELETAL: + muscle, back pain, joint pain or stiffness. HEMATOLOGIC: + anemia, bleeding or bruising. LYMPHATICS: No enlarged nodes. No history of splenectomy. PSYCHIATRIC: + history of depression or anxiety, ADHD. ENDOCRINOLOGIC: + Diaphoresis. No reports of cold or heat intolerance. No polyuria or polydipsia. ALLERGIES: + history of asthma, hives, eczema or rhinitis. Vital Signs Vital Signs Vital Signs: 08/06/21 21:46 08/06/21 21:49 08/06/21 21:51 Temperature 98.2 F Temperature Source Oral Pulse Rate 87 Respiratory Rate 30 H Blood Pressure 229/111 H Blood Pressure Mean 150 Pulse Ox 92 99 Oxygen Delivery Method Room Air Nasal Cannula Oxygen Flow Rate (L/min) 5 08/06/21 21:59 08/06/21 22:12 08/06/21 22:33 Temperature Temperature Source Pulse Rate 82 Respiratory Rate 19 H Blood Pressure 176/92 H 151/81 H Blood Pressure Mean 120 104 Pulse Ox 98 97 Oxygen Delivery Method Nasal Cannula Nasal Cannula Oxygen Flow Rate (L/min) 5 5 08/06/21 23:06 Temperature Temperature Source Pulse Rate 79 Respiratory Rate 23 H Blood Pressure 141/76 H Blood Pressure Mean 97 Pulse Ox 96 Oxygen Delivery Method Nasal Cannula Oxygen Flow Rate (L/min) 5 Weight Weight: 291 lb 0.163 oz Body Mass Index (BMI) 35.4 Physical Exam Narrative Physical Examination: General: Awake, alert, oriented x 3 and cooperative, seated upright in the ED bed, notes the chest discomfort is worsening again, currently rated 5.5 out of 10 in severity. Skin: Normal color, normal turgor, no icterus, no cyanosis. HEENT: AT/NC, EOMI, PERRLA, MMM, no carotid bruits or JVD noted. Lungs: Diminished, greater bases, moderate effort, no rales, ronchi or wheezing. Heart: Regular rate and rhythm; no gallop, rub audible. Abdomen: Soft, obese, NTTP, appears distended which he notes has been chronic and an ongoing issue, distant hypoactive bowel sounds, difficult to assess HSM given habitus. Extremities: No cyanosis, clubbing, or edema. Neurological: Patient awake, alert, oriented as noted, cognitive function intact ; pupils equally reactive to light and accommodation, cranial nerves II-XII grossly normal, moving all 4 extremities, no focal deficits, strength moderately to severely global decrease secondary to acute complaints Psychiatric: Affect appears fatigued and uncomfortable, no acute evidence of depressive or anxiety feelings. Results Lab / Micro Data Result Diagrams: 08/06/21 21:50 08/06/21 21:50 Labs: Laboratory Results - last 24 hr 08/06/21 21:50: Total Bilirubin 0.60, Direct Bilirubin 0.31 H, AST 97 H, ALT 116 H, Alkaline Phosphatase 88, Total Protein 7.2, Albumin 3.6, Globulin 3.6 08/06/21 21:50: WBC 5.8, RBC 4.12 L, Hgb 12.8 L, Hct 38.8 L, MCV 94.2 H, MCH 31.1, MCHC 33.0, RDW Std Deviation 49.0 H, RDW Coeff of Lalita 14.4, Plt Count 274, MPV 9.4, Immature Gran % (Auto) 3.300 H, Neut % (Auto) 60.0, Lymph % (Auto) 17.8 L, [place] % (Auto) 15.9 H, Eos % (Auto) 2.1, Baso % (Auto) 0.9, Absolute Neuts (auto) 3.5, Absolute Lymphs (auto) 1.03, Nucleated RBC % 0 08/06/21 21:50: Sodium 137, Potassium 3.6, Chloride 104, Carbon Dioxide 27.0, Anion Gap 6, BUN 13, Creatinine 1.39 H, Estim Creat Clear Calc 76.32, Est GFR (MDRD) Af Amer 69, Est GFR (MDRD) Non-Af 57 L, BUN/Creatinine Ratio 9.4 L, Glucose 175 H, Calcium 8.7, Troponin I High Sens 33, Lipase 243, TSH 7.71 H 08/06/21 21:50: PT 12.4, INR 1.0, APTT 26.0, D-Dimer Quant (PE/DVT) 4.86 H* Rhythm Strip Rhythm Strip: Sinus Rhythm Rate: 82 Assessment & Plan Assessment/Plan (1) Chest pain: QUALIFIERS: Chest pain type: unspecified Qualified Code(s): R07.9 - Chest pain, unspecified (2) Hypertensive urgency: PLAN: The patient is a 50 y/o M w/ PMHx: Asthma, Obesity, 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 #1. Chest Pain with hypertensive urgency: EKG in ED sinus rhythm with no acute evidence of ischemia with repeat similar, CTA chest abdomen pelvis final read upon evaluation and if no obvious evidence of concerning finding that require transition to tertiary facility would plan admission to the [facility] otherwise would require tertiary facility transfer which was discussed at length with patient and the ED physician, mora trop 33. Will admit to the ICU if patient is appropriate [facility] admission and does not require tertiary facility transfer, continue nitroprusside drip, will request cardiology consultation, place on a monitored bed to assure no acute myocardial infarction with serial cardiac enzymes and EKGs. Will request echocardiogram. Will maintain n.p.o. after midnight in case cardiology preference for any further evaluation including stress testing. FLP in AM. Magnesium level requested. Will await cardiology evaluation prior to de-escalation off drip. We will continue home aspirin, Plavix, Coreg, losartan with hold primers as needed given nitroprusside usage per ASA, NG, morphine. #2. Hyperglycemia: Admission glucose 175, possibly stress response, will request hemoglobin A1c to be cautious #3. Elevated LFTs, chronic, unclear etiology: Admission CMP with D bili 0.31, AST/ALT 97/116, similar to prior, notes ongoing evaluation outpatient thus will defer repeat and encourage continued outpatient follow-up, repeat CMP in AM. #4. Abnormal TSH: TSH 7.71, free T4 requested. #5. CAD: Status post CABG x1, continue aspirin, Plavix, statin, Coreg, losartan regimen as noted. #6. Valvular heart disease: Status post history MV repair, echocardiogram requested #7. Marfan syndrome with history of prior ascending aortic aneurysm dissection, vertebral artery dissection: Patient with significant history of dissection requiring L from procedure, CTA chest abdomen pelvis obtained as noted. #8. Chronic asthma: We will continue patient home inhaler, as needed albuterol if needed. #9. Obesity: Weight loss and lifestyle changes encouraged. #10. GERD: We will continue patient on PPI. #11. NEO: We will continue BiPAP nightly. #12 DVT Prophylaxis: SCDs, lovenox.
[2021-08-06 23:57] LABS: Magnesium 2.1 mg/dL (1.6-2.6)
[2021-08-06] MEDS: HYDROmorphone 1 MG/ML Syringe IV (23:59)
[2021-08-07 00:01] VITALS: BP 148/89; PULSE 80; RESP 18; O2SAT 96
[2021-08-07 00:01] LABS: Reflex Troponin-HS? (from REC) Y
[2021-08-07 00:09] VITALS: BP 154/88
[2021-08-07 00:22] VITALS: BP 147/87; PULSE 82
[2021-08-07 00:32] VITALS: BP 145/85; PULSE 84; RESP 17; O2SAT 98
[2021-08-07 00:37] LABS: Troponin-I HS 26 pg/mL (3.0-78.0)
[2021-08-07 00:44] VITALS: BP 153/90
[2021-08-07 00:57] VITALS: BP 145/89; PULSE 80; O2SAT 96
== END 2021-08-07 00:57 | disposition short-term general hospital (02) ==
PROVIDERS: Family Medicine; Emergency Provider Emergency Medicine; PCP Family Medicine; Visit Provider Emergency Medicine
DX: I71.00 Dissection of unspecified site of aorta (principal); I16.1 Hypertensive emergency; Q87.40 Marfan syndrome, unspecified; I25.10 Atherosclerotic heart disease of native coronary artery without angina pectoris; I10 Essential (primary) hypertension; K21.9 Gastro-esophageal reflux disease without esophagitis; J45.909 Unspecified asthma, uncomplicated; G47.33 Obstructive sleep apnea (adult) (pediatric); E66.9 Obesity, unspecified; R94.5 Abnormal results of liver function studies; Z68.35 Body mass index [BMI] 35.0-35.9, adult; Z95.1 Presence of aortocoronary bypass graft; Z79.02 Long term (current) use of antithrombotics/antiplatelets; Z79.899 Other long term (current) drug therapy
CPT/HCPCS: 71275; 74174; 80048; 80076; 83690; 83735; 84443; 84484; 85025; 85379; 85610; 85730; 93005; 96365; 96366; 96375; 96376; 99285; Q9967; A4216; J2405

== ENCOUNTER 2021-08-31 19:52 | Emergency (ER) | payer OTHER, MEDICARE, SELFPAY ==
[2021-08-31 19:53] VITALS: BP 132/71; PULSE 80; RESP 16; TEMP 36; O2SAT 97; BMI 33.5
[2021-08-31 20:34] VITALS: BP 133/73; PULSE 76; O2SAT 97
--- NOTE | 2021-08-31 20:46 | CT_ITS ---
EXAM: CT ANGIOGRAPHY CHEST, ABDOMEN AND PELVIS WITH INTRAVENOUS CONTRAST CLINICAL INDICATION: dissection TECHNIQUE: Helically acquired angiography images were obtained of the chest, abdomen and pelvis with intravenous contrast. CTDIvol = ( 26.58 ) mGy, DLP = ( 1624.50 ) mGycm This CT exam was performed using one or more of the following dose reduction techniques: automated exposure control, adjustment of the mA and/or kV according to patient size, and/or use of iterative reconstruction technique. This report was created using [employer] report generation technology. MIP reconstructed images were created and reviewed. CONTRAST: IV 100mL Isovue-300 COMPARISON: 08/06/2021 FINDINGS: VASCULATURE: AORTA: No new aortic dissection or increase in size of the visualized thoracoabdominal aorta. Stable appearance of the thoracic aortic endograft. Nonpenetrating ulcer filling with contrast along the right lateral upper abdominal aorta wall is redemonstrated, showing increased size at the upper/suprarenal aspect, for example measuring 1.5 cm in anterior to posterior dimension on image [address] #2 (previously 1.0 cm). No adjacent stranding or fluid. PULMONARY ARTERIES: Unremarkable. Normal in caliber. No obvious central pulmonary embolism although this study was not performed with the pulmonary embolism protocol. GREAT VESSELS OF AORTIC ARCH: Unremarkable. Normal in caliber. No dissection. CELIAC TRUNK AND MESENTERIC ARTERIES: No acute findings. No occlusion or significant stenosis. No dissection. RENAL ARTERIES: Previously noted long segment intramural hematoma extending from just distal to the endograft to the origin of the renal arteries has noticeably improved. No occlusion or significant stenosis. No dissection. ILIAC ARTERIES: No acute findings. No occlusion or significant stenosis. No dissection. CHEST: LUNGS AND PLEURAL SPACES: New patchy airspace disease involving all 3 right lobes is most compatible with with pneumonia. No mass. No pleural effusion or thickening. HEART: Unremarkable. Heart size is normal. No pericardial effusion. MEDIASTINUM: Unremarkable. No mediastinal or hilar adenopathy. Esophagus is unremarkable. No hiatal hernia. THYROID: Unremarkable. No thyroid lesions. ABDOMEN: LIVER: Hepatic steatosis. GALLBLADDER AND BILE DUCTS: Unremarkable. No calcified gallstones. No gallbladder distention or wall edema. No intra- or extrahepatic biliary ductal dilation. PANCREAS: Unremarkable. No focal cystic or solid mass. SPLEEN: Splenomegaly. ADRENALS: Unremarkable. No nodules. KIDNEYS AND URETERS: Unchanged small exophytic cyst at the upper pole right kidney and the cyst measuring 3.1 cm at the lower pole of the left kidney. No other renal abnormalities. No hydronephrosis. STOMACH AND BOWEL: Unremarkable. No stomach or bowel distention. No focal inflammatory change. PELVIS: APPENDIX: No evidence of acute appendicitis. BLADDER: Unremarkable. REPRODUCTIVE: Unremarkable as visualized. No mass. CHEST, ABDOMEN and PELVIS: INTRAPERITONEAL SPACE: Unremarkable. No ascites or other fluid collection. No free air. BONES/JOINTS: No suspicious lytic or sclerotic lesions of bone. SOFT TISSUES: Unremarkable. No discrete abdominal or pelvic wall hernia. LYMPH NODES: Unremarkable. No enlarged lymph nodes. CT/CTA Chst, Abd, Pel W and/or WO IMPRESSION: 1. New patchy airspace disease involving all 3 right lobes is most compatible with with pneumonia. 2. No new aortic dissection. 3. Previously noted long segment intramural hematoma extending from just distal to the endograft to the origin of the renal arteries has noticeably improved. 4. Nonpenetrating ulcer filling with contrast along the right lateral upper abdominal aorta wall is redemonstrated, showing increased size at the upper/suprarenal aspect, for example measuring 1.5 cm in anterior to posterior dimension on image [address] #2 (previously 1.0 cm). No adjacent stranding or fluid. Electronically Signed: Bernard Quach MD at 22:05 EDT ,
--- NOTE | 2021-08-31 20:47 | EKG12_ITS ---
Test Reason : BACK PAIN Blood Pressure : / mmHG Vent. Rate : 075 BPM Atrial Rate : 075 BPM P-R Int : 202 ms QRS Dur : 116 ms QT Int : 408 ms P-R-T Axes : 007 006 047 degrees QTc Int : 455 ms Normal sinus rhythm Normal ECG Confirmed by KAILASH HARRIS, BETTY ([id number]), continuity editor KELTON JAIN ([id number]) on 09/02/2021 11:20:39 AM Referred By: PL Confirmed By:BETTY LINDER MD
--- NOTE | 2021-08-31 20:49 | EDS_ITS ---
HPI History of Present Illness Chief Complaint: Back Informant: patient and spouse/S.O. Narrative Narrative: Patient complains of left-sided shoulder and left-sided back pain. This actually started on about the fourth or fifth of this month when he had onset of a [place] type B dissection. In 2010 he had had a [place] a dissection with surgical correction. He was seen here for the type B. He was transferred to [facility]. He states he was there until the . He was kept on medicines to control pain and blood pressure. He has all his blood pressure medicines and is taking them. He has generally been pretty well controlled. He was sent home on Dilaudid because he has had continual pain in the same area ever since the dissection. The pain is never really let up. They are trying to get him into pain management but its not happened in the last 10 days. He ran out of Dilaudid 2 days ago and he just cannot take the pain anymore. The pain is not different. The pain is not in a different area. The pain has not moved. He has not developed syncope. He has no numbness tingling or weakness. He states he was scanned multiple times up in [facility]. They were telling him that the dissection did not expand or move but it was s tarting to clot. 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 Essential (primary) hypertension (05/20/18) GERD (gastroesophageal reflux disease) Hyperkalemia Hyperlipidemia Hypertensive urgency Hypoxia Infection of external auditory canal Marfans syndrome Nonobstructive atherosclerosis of coronary artery NEO (obstructive sleep apnea) Uncontrolled hypertension Home Medications rabeprazole [AcipHex] 20 mg PO DAILY 03/25/17 [History Last Taken 08/30/21] acetaminophen 1,000 mg PO DAILY PRN 05/19/18 [History Last Taken 05/19/18] ibuprofen 400 - 600 mg PO DAILY PRN 05/19/18 [History Last Taken 05/19/18] clopidogrel 75 mg PO DAILY 08/03/20 [History Last Taken 08/31/21] fenofibrate 160 mg PO DAILY 08/03/20 [History Last Taken 03/19/21] zolpidem 10 mg tablet 10 mg PO QHS PRN 01/18/21 [History Last Taken 08/30/21] handicap placcard #1 ea 03/15/21 [Rx Last Taken Unknown] dextroamphetamine-amphetamine [Adderall] 30 mg PO DAILY 03/20/21 [History Last Taken 08/31/21] aspirin 81 mg PO DAILY 08/31/21 [History Last Taken Unknown] carvedilol [Coreg] 50 mg PO BID 08/31/21 [History Last Taken 08/31/21] clonidine HCl 0.1 mg PO BID 08/31/21 [History Last Taken 08/31/21] hydralazine 150 mg PO TID 08/31/21 [History Last Taken 08/31/21] hydromorphone [Dilaudid] 2 mg PO Q4H PRN 5 Days #30 tab 08/31/21 [Rx Last Taken Unknown] isosorbide dinitrate 30 mg PO TID 08/31/21 [History Last Taken 08/31/21] methocarbamol 500 mg PO Q6H PRN PRN 08/31/21 [History Last Taken Unknown] nifedipine 90 mg PO DAILY 08/31/21 [History Last Taken 08/31/21] quetiapine 50 mg PO QHS 08/31/21 [History Last Taken Unknown] Allergy/AdvReac Type Severity Reaction Status Date / Time ciprofloxacin [From Cipro] Allergy Rash Verified 08/31/21 19:56 ciprofloxacin HCl Allergy Rash Verified 08/31/21 19:56 [From Cipro] sulfamethoxazole Allergy Rash Verified 08/31/21 19:56 [From Bactrim] tramadol Allergy Itching Verified 08/31/21 19:56 trimethoprim [From Bactrim] Allergy Rash Verified 08/31/21 19:56 Family History Son Marfans syndrome Daughter Marfans syndrome Father Hypertension Grandfather Heart disease Myocardial infarction CVA (cerebral vascular accident) Grandmother Heart disease Surgical History H/O coronary artery bypass surgery (03/08/11) History of hand surgery History of left heart catheterization (12/14/20) History of mitral valve repair (11/05/11) History of open reduction and internal fixation (ORIF) procedure (2017) History of surgical fusion joint History of tonsillectomy Hx of ascending aorta replacement (03/08/11) Social History household members: spouse Smoking Status: Never smoker alcohol intake: current alcohol intake frequency: a few times a month substance use type: does not use ROS ROS ED Constitutional Constitutional ED: Denies chills or fever(s) Eyes Eyes: Denies blurry vision ENT ENT ED: Denies rhinorrhea or sore throat Cardiovascular Cardiovascular: Reports other Details: All of the patient's pain is in his back. He has no anterior chest pain. ; Denies chest pain, palpitations or racing heartbeat Respiratory/Chest Respiratory/Chest: Denies dyspnea Gastrointestinal Gastrointestinal: Denies abdominal pain, nausea or vomiting Genitourinary Genitourinary ED: Denies dysuria or hematuria Musculoskeletal Musculoskeletal: Reports back pain Integumentary Denies rash Neurologic Neurologic: Denies headache(s), paresthesias or weakness Psychiatric Psychiatric: Denies depression Endocrine Endocrinology: Denies polydipsia or polyuria Hematologic/Lymphatic Hematologic/Lymphatic: Denies easy bleeding or easy bruising Allergic/Immunologic Allergic/Immunologic ED: Denies urticaria EXAM Physical Exam Const Vital Signs: 08/31/21 19:53 08/31/21 20:34 08/31/21 22:13 Temperature 96.8 F L Temperature Source Temporal Pulse Rate 80 76 73 Respiratory Rate 16 15 Blood Pressure 132/71 H 133/73 H 128/74 H Blood Pressure Mean 91 93 92 Pulse Ox 97 97 95 Oxygen Delivery Method Room Air Room Air Room Air Positive well nourished and well developed Constitutional Narrative: Patient is nontoxic but he does look a bit uncomfortable General Appearance ED: well developed and NAD HEENT Negative for trauma or tenderness Eyes PERRL Neck no lymphadenopathy, supple and no JVD Resp normal respiratory effort and clear to auscultation bilaterally Effort and Inspection: Negative for pain with movement or other Auscultation: diminished lung sounds; Negative for rales or rhonchi Cardio regular rate and regular rhythm Cardio Narrative: Patient has a slight intermittent murmur that is systolic at the right upper sternal border. He thinks he has had that before. GI normal to inspection, nondistended, normoactive bowel sounds, soft to palpation, non-tender, non-distended and no masses GI Narrative: . Benign abdomen Back/Spine normal to inspection Back/Spine Narrative: Patient does not have reproducible tenderness of his back on exam. But he describes an area from mid scapular region down to about T12 that is painful. This is the exact same location and type of pain that he has been having. Extremity normal to inspection Extremity Narrative: No edema or cords. Patient has excellent equal pulses in upper and lower extremities that match. No sign of ischemia distally. Psych mental status grossly normal Skin no rashes or lesions noted MDM MDM MDM Narrative Medical decision making narrative: Patient's blood work show anemia at 8 7. Although this is dropped from our levels, his discharge hemoglobin was 8.3 and it had been 7. So he is rising. Mild creatinine dysfunction. Electrolytes overall normal. Troponin negative. CT shows some patchy airspace changes in the right. But these are mild. He has no hypoxia cough or symptoms of pneumonia whatsoever. There is no sign of new dissection. The previous intramural hematoma has significantly improved. There is a slight ulcerated area at the distal aspect of the prior dissection. This is above the renals. On the right. Its about 1.5 cm different in size than his original study. But the remainder of the study is all improved. I talked with the patient and his about this. He states his symptoms are 100% improved. He has been having the same symptoms ever since he had this dissection. I do not think this represents worsening. All indications is all aspects are improving. Patient states he is 100% improved. He would like to go home. I will try to write for some Dilaudid for this patient. I will write 2 mg every 4 hours. I think this patient has a very unique condition and it does require pain meds. Therefore I will write more than I usually do. We will try to get these filled here tonight if I can. Lab Data Attestation: I reviewed the patient's lab results. Labs: Laboratory Results - last 24 hr 08/31/21 08/31/21 20:20 20:20 WBC 5.4 RBC 2.93 L Hgb 8.7 L Hct 27.8 L MCV 94.9 H MCH 29.7 MCHC 31.3 L RDW Std Deviation 50.3 H RDW Coeff of Lalita 14.4 Plt Count 327 MPV 8.7 Immature Gran % (Auto) 1.300 H Neut % (Auto) 67.1 Lymph % (Auto) 14.3 L Andrews % (Auto) 13.7 H Eos % (Auto) 3.2 Baso % (Auto) 0.4 Absolute Neuts (auto) 3.6 Absolute Lymphs (auto) 0.77 L Nucleated RBC % 0 Sodium 139 Potassium 3.7 Chloride 104 Carbon Dioxide 29.0 Anion Gap 6 BUN 21 H Creatinine 1.50 H Estim Creat Clear Calc 70.73 Est GFR (MDRD) Af Amer 63 Est GFR (MDRD) Non-Af 52 L BUN/Creatinine Ratio 14.0 Glucose 135 H Calcium 8.6 Troponin I High Sens 9 Radiography Diagnostic Testing: Clinical Impression(s) from Imaging Studies Chest/Abdomen/Pelvis CTA 08/31/21 20:46 IMPRESSION: 1. New patchy airspace disease involving all 3 right lobes is most compatible with with pneumonia. 2. No new aortic dissection. 3. Previously noted long segment intramural hematoma extending from just distal to the endograft to the origin of the renal arteries has noticeably improved. 4. Nonpenetrating ulcer filling with contrast along the right lateral upper abdominal aorta wall is redemonstrated, showing increased size at the upper/suprarenal aspect, for example measuring 1.5 cm in anterior to posterior dimension on image [address] #2 (previously 1.0 cm). No adjacent stranding or fluid. Electronically Signed: Bernard Quach MD at 22:05 EDT , ADDENDUM: 08/31/21 5060 IMPRESSION: 1. New patchy airspace disease involving all 3 right lobes is most compatible with with pneumonia. 2. No new aortic dissection. 3. Previously noted long segment intramural hematoma extending from just distal to the endograft to the origin of the renal arteries has noticeably improved. 4. Nonpenetrating ulcer filling with contrast along the right lateral upper abdominal aorta wall is redemonstrated, showing increased size at the upper/suprarenal aspect, for example measuring 1.5 cm in anterior to posterior dimension on image [address] #2 (previously 1.0 cm). No adjacent stranding or fluid. N.B. : Natalia Padron/ED insurance policy clerk, OT, confirmed on 08/31/2021 22:07:05 (ET) that the healthcare facility has received the radiology report. Electronically Signed: Bernard Quach MD at 22:05 EDT Reading Location ID and State: [address] [place] [address] Tel , Service support , EKG Initial EKG: Comments: EKG none for posterior backslash chest pain read by me shows sinus rhythm with overall rate of 75. No ectopy. No acute ST elevation. NM interval is slightly long at 202 ms showing a subtle first-degree AV block. QRS duration and QTc normal. Discharge Plan Triage Chief Complaint: Back ED Provider: David Trevino Dx/Rx/DC Orders Clinical Impression: Aortic dissection, Back pain Instructions: Aortic Angiogram Prescriptions: New hydromorphone [Dilaudid] 2 mg tablet 2 mg PO Q4H PRN (Reason: pain) 5 Days Qty: 30 RF: 0 No Action zolpidem 10 mg tablet 10 mg PO QHS PRN (Reason: Sleep) RF: 0 rabeprazole [AcipHex] 20 MG tablet,delayed release (DR/EC) 20 mg PO DAILY RF: 0 acetaminophen 500 MG tablet 1,000 mg PO DAILY PRN (Reason: Pain) RF: 0 ibuprofen 200 MG tablet 400 - 600 mg PO DAILY PRN (Reason: Pain) RF: 0 clopidogrel 75 MG tablet 75 mg PO DAILY RF: 0 fenofibrate 160 MG tablet 160 mg PO DAILY RF: 0 dextroamphetamine-amphetamine [Adderall] 30 mg tablet 30 mg PO DAILY RF: 0 clonidine HCl 0.1 mg tablet 0.1 mg PO BID RF: 0 isosorbide dinitrate 30 mg tablet 30 mg PO TID RF: 0 aspirin 81 mg Tablet 81 mg PO DAILY RF: 0 quetiapine 50 mg tablet 50 mg PO QHS RF: 0 carvedilol [Coreg] 12.5 mg tablet 50 mg PO BID RF: 0 nifedipine 60 mg tablet extended release 24hr 90 mg PO DAILY RF: 0 hydralazine 50 mg tablet 150 mg PO TID RF: 0 methocarbamol 500 mg tablet 500 mg PO Q6H PRN PRN (Reason: muscle spasms) RF: 0 (DME) handicap placcard See Rx Instructions .Route .MEDSUPPLY Qty: 1 RF: 0 Primary Care Provider: Rodo Edmonds Referrals: Rodo Edmonds MD [Primary Care Provider] - As Needed Activity Restrictions/Additional Instructions: Follow-up with your fulfillment specialist as scheduled. Disposition Disposition: Home, Self Care
[2021-08-31] MEDS: HYDROmorphone 1 MG/ML Syringe IV ×2 (21:02→22:11)
[2021-08-31 21:06] LABS: Absolute Lymphocyte Count 0.77 X10^3/uL (0.83-4.51); Absolute Neutrophil Count 3.6 X10^3/uL (2.0-7.7); Basophil# 0.02 X10^3/uL; Basophil% 0.4 % (0-1); Eosinophil# 0.17 X10^3/uL; Eosinophils% 3.2 % (0-5); Hematocrit 27.8 % (40-54); Hemoglobin 8.7 g/dL (13.0-16.5); Lymphocyte # 0.77 X10^3/ul (0.83-4.51); Lymphocyte % 14.3 % (19-41); Mean Corp Hgb Conc 31.3 g/dL (32-36); Mean Corpuscular Hgb 29.7 pg (27.0-32.0); Mean Corpuscular Volume 94.9 fL (80-94); Mean Platelet Vol. 8.7 fl (6.2-12.0); Monocyte# 0.74 X10^3/uL; Monocyte% 13.7 % (0-10); NRBC Flagged by Analyzer 0 % (0-5); Neutrophil # 3.62 X10^3/uL (2.7-7.7); Neutrophil % 67.1 % (47-70); Platelet Count 327 K/mm3 (150-450); RBC Distribution Width CV 14.4 % (11.6-14.6); RBC Distribution Width SD 50.3 fl (35.1-43.9); Red Blood Count 2.93 M/mm3 (4.6-6.2); White Blood Count 5.4 K/mm3 (4.4-11.0)
[2021-08-31 21:34] LABS: Anion Gap 6 (5-15); BUN 21 mg/dL (7-18); Calcium,Total 8.6 mg/dL (8.5-10.1); Chloride 104 mmol/L (98-107); EST Glomerular Filtration Rate 52 mL/min (>60); Est Glom Filt Rate - Afr Amer 63 mL/min (>60); Estimated Creatinine Clearance 70.73 ml/min; Glucose 135 mg/dL (74-106); Potassium 3.7 mmol/L (3.5-5.1); Sodium Level 139 mmol/L (136-145); Troponin-I HS (w/2H Reflex) 9 pg/mL (3.0-78.0)
[2021-08-31 22:13] VITALS: BP 128/74; PULSE 73; RESP 15; O2SAT 95
[2021-08-31 22:57] LABS: Reflex Troponin-HS? (from REC) Y
[2021-08-31] MEDS: oxyCODONE 5 MG Tablet PO (23:23)
== END 2021-08-31 23:24 | disposition home or self-care (01) ==
PROVIDERS: Emergency Provider Emergency Medicine; PCP Family Medicine; Visit Provider Emergency Medicine
DX: I71.00 Dissection of unspecified site of aorta (principal); I25.10 Atherosclerotic heart disease of native coronary artery without angina pectoris; I10 Essential (primary) hypertension; E78.5 Hyperlipidemia, unspecified; Z95.0 Presence of cardiac pacemaker; Z79.02 Long term (current) use of antithrombotics/antiplatelets; Z79.82 Long term (current) use of aspirin; Z79.899 Other long term (current) drug therapy
CPT/HCPCS: 71275; 74174; 80048; 84484; 85025; 93005; 96374; 96376; 99283; Q9967; A4216

== ENCOUNTER → 2022-02-19 | Outpatient (CLI) | payer OTHER, MEDICARE, SELFPAY ==
--- NOTE | 2022-02-19 15:12 | RAD_ITS ---
STUDY: X-RAY - CERVICAL SPINE REASON FOR EXAM: Male, 51 years old. CERVICALGIA TECHNIQUE: 3 view(s) of the cervical spine were obtained. COMPARISON: None FINDINGS: Normal anterior atlantoaxial articulation. Normal odontoid process. Normal cervical lordosis. Normal vertebral bodies and endplates. Normal disc space heights. Mild multilevel facet arthrosis. Aortic stent, sternal wires, and right chest wall surgical clips. RAD/Cerv Spine 2 or 3 Views IMPRESSION: Mild multilevel facet arthrosis. C6-7 not well demonstrated on sagittal view. Electronically Signed: Deandre De Santiago MD at 1:37 EDT ,
== END | disposition home or self-care (01) ==
LOC: RAD 15:09
PROVIDERS: PCP Family Medicine; Referring Provider Anesthesiology Pain Medicine; Visit Provider Anesthesiology Pain Medicine
DX: M50.30 Other cervical disc degeneration, unspecified cervical region (principal)
CPT/HCPCS: 72040

== ENCOUNTER → 2022-07-14 | Outpatient (CLI) | payer OTHER, MEDICARE, SELFPAY ==
[2022-07-14 16:05] LABS: Amphetamine Urine VISTA NEGATIVE (<1000 ng/mL); Barbiturate Urine VISTA NEGATIVE (< 200 ng/mL); Benzodiazepine Urine VISTA NEGATIVE (< 200 ng/mL); Cocaine Urine VISTA NEGATIVE (< 300 ng/mL); Ecstacy Urine VISTA NEGATIVE (< 500 ng/mL); Methadone Urine VISTA NEGATIVE (< 300 ng/mL); PCP Urine VISTA NEGATIVE (< 25 ng/mL); THC Urine VISTA NEGATIVE (< 50 ng/mL); Vista UDS pH Range 5
== END | disposition home or self-care (01) ==
LOC: LAB 14:22
PROVIDERS: PCP Family Medicine; Referring Provider Anesthesiology Pain Medicine; Visit Provider Anesthesiology Pain Medicine
DX: F11.20 Opioid dependence, uncomplicated (principal)
CPT/HCPCS: 80307

== ENCOUNTER 2022-10-13 19:43 | Inpatient (IN) | payer OTHER, MEDICARE, SELFPAY ==
[2022-10-13 19:44] VITALS: BP 198/83; PULSE 58; RESP 16; TEMP 36.7; O2SAT 98; BMI 32.3
[2022-10-13 20:12] VITALS: BP 179/92; PULSE 54; RESP 11; O2SAT 95
--- NOTE | 2022-10-13 20:25 | EKG12_ITS ---
Test Reason : SOB Blood Pressure : / mmHG Vent. Rate : 054 BPM Atrial Rate : 054 BPM P-R Int : 214 ms QRS Dur : 120 ms QT Int : 532 ms P-R-T Axes : -01 016 -03 degrees QTc Int : 504 ms Sinus bradycardia with 1st degree A-V block Non-specific intra-ventricular conduction delay Minimal voltage criteria for LVH, may be normal variant ( [place] product ) Borderline ECG Confirmed by MIRANDA HARRIS, MARIUSZ ([id number]), editorial director KELTON JIAN ([id number]) on 10/15/2022 11:20:59 AM Referred By: PC Confirmed By:MARIUSZ JEAN MD
--- NOTE | 2022-10-13 20:26 | EX.ED.DYSGE1 ---
HPI History of Present Illness Chief Complaint: Confusion Narrative Narrative: Patient tells me he is confused, I am getting history from his also. He has chronic confusion however he says today it was worse. He cannot tell me any other symptoms he has no focal weakness. No fevers or chills. He has chronic dyspnea and he is on a BiPAP most of the day up to 22 hours a day. No cough. His dyspnea is no worse than normal. He has no lower extremity edema or calf pain. He is denying chest pain. He is denying any urinary symptoms although he had a couple episodes of incontinence as at home. He is denying a headache. 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 Essential (primary) hypertension (05/20/18) GERD (gastroesophageal reflux disease) Hyperkalemia Hyperlipidemia Hypertensive urgency Hypoxia Infection of external auditory canal Marfans syndrome Nonobstructive atherosclerosis of coronary artery NEO (obstructive sleep apnea) Uncontrolled hypertension Home Medications acetaminophen 500 mg tablet 1,000 mg PO DAILY PRN Pain 05/19/18 [History Last Taken 05/19/18] ibuprofen 200 mg tablet 400 - 600 mg PO DAILY PRN Pain 05/19/18 [History Last Taken 05/19/18] zolpidem 10 mg tablet 10 mg PO QHS PRN Sleep 01/18/21 [History Last Taken 08/30/21] handicap placcard #1 ea 03/15/21 [Rx Last Taken Unknown] fenofibrate 160 mg tablet 160 mg PO DAILY #90 tabs 09/18/21 [Rx Last Taken Unknown] albuterol sulfate 90 mcg/actuation aerosol inhaler 2 puff inhalation Q4H PRN shortness of breath or wheezing #8.5 grams 10/03/21 [Rx Last Taken Unknown] rabeprazole 20 mg tablet,delayed release (AcipHex) 20 mg PO DAILY stomach #90 tabs 07/17/22 [Rx Last Taken Unknown] quetiapine 200 mg tablet 200 mg PO .Four times a day sleep #120 tabs 09/01/22 [Rx Last Taken Unknown] aspirin 81 mg tablet,delayed release (Adult Aspirin Regimen) 81 mg PO QDAY #90 tabs 09/16/22 [Rx Last Taken Unknown] carvedilol 25 mg tablet 50 mg PO BID #360 tabs 09/16/22 [Rx Last Taken Unknown] clonidine HCl 0.1 mg tablet 0.1 mg PO BID blood pressure #180 tabs 09/16/22 [Rx Last Taken Unknown] clopidogrel 75 mg tablet 75 mg PO DAILY heart health #90 tabs 09/16/22 [Rx Last Taken Unknown] hydralazine 50 mg tablet 150 mg PO TID #810 tabs 09/16/22 [Rx Last Taken Unknown] nifedipine 90 mg tablet,extended release 24 hr 90 mg PO DAILY BP #90 tabs 09/16/22 [Rx Last Taken Unknown] buprenorphine 20 mcg/hour weekly transdermal patch 10/13/22 [History Last Taken Unknown] citalopram 20 mg tablet mg 10/13/22 [History Last Taken Unknown] fluoxetine 10 mg tablet 10 mg PO DAILY 10/13/22 [History Last Taken Unknown] hydrocodone-acetaminophen 5-325mg 5mg-325mg 1 tab PO BID PRN Pain 10/13/22 [History Last Taken Unknown] isosorbide dinitrate 30 mg tablet 30 mg PO BID blood pressure 10/13/22 [History Last Taken Unknown] levothyroxine 25 mcg tablet mcg 10/13/22 [History Last Taken Unknown] lorazepam 1 mg tablet mg 10/13/22 [History Last Taken Unknown] Allergy/AdvReac Type Severity Reaction Status Date / Time ciprofloxacin [From Cipro] Allergy Rash Verified 10/13/22 19:47 ciprofloxacin HCl Allergy Rash Verified 10/13/22 19:47 [From Cipro] sulfamethoxazole Allergy Rash Verified 10/13/22 19:47 [From Bactrim] tramadol Allergy Itching Verified 10/13/22 19:47 trimethoprim [From Bactrim] Allergy Rash Verified 10/13/22 19:47 Family History Son Marfans syndrome Daughter Marfans syndrome Father Hypertension Grandfather Heart disease Myocardial infarction CVA (cerebral vascular accident) Grandmother Heart disease Surgical History H/O coronary artery bypass surgery (03/08/11) History of hand surgery History of left heart catheterization (08/13/21) History of mitral valve repair (03/08/11) History of open reduction and internal fixation (ORIF) procedure (2017) History of surgical fusion joint History of tonsillectomy Hx of ascending aorta replacement (03/08/11) Social History household members: spouse Smoking Status: Never smoker alcohol intake: current alcohol intake frequency: a few times a month substance use type: does not use ROS ROS ED ROS Narrative Review of symptoms is somewhat limited All systems negative except as indicated General: No fever Eyes: No visual changes ENT: No upper airway congestion, normal voice Neck: No neck pain Cardiovascular: No chest pain Respiratory: Chronic dyspnea not worse. Gastrointestinal: No abdominal pain, nausea vomiting or diarrhea Genitourinary: No dysuria Musculoskeletal: Denies myalgias, he has difficulty ambulating but no different than usual. Skin: No rash Neurological: Confusion, no focal weakness EXAM Physical Exam Narrative Exam Narrative: Physical exam General: Patient appears chronically ill but he does not appear in any distress Head: Normocephalic, Atraumatic Eyes: Conjunctiva not pale ENT: Moist mucous membranes Neck: Supple, Nontender, No lymphadenopathy Cardiovascular: Regular rate, Regular rhythm Respiratory: Coarse bilateral breath sounds Abdomen: Soft, Nontender, Nondistended Back: Nontender, Normal Inspection. Negative for: CVA tenderness Extremities: Nontender, No edema Skin: Normal color, No rash Neurological: Patient is alert he is oriented x3 but confused to other minor details. No focal deficit Const Vital Signs: 10/13/22 19:44 10/13/22 20:12 10/13/22 21:27 Temperature 98.1 F Temperature Source Temporal Pulse Rate 58 L 54 L 57 L Respiratory Rate 16 11 L 16 Blood Pressure 198/83 H 179/92 H Blood Pressure Mean 121 121 Pulse Ox 98 95 97 Oxygen Delivery Method Nasal Cannula Nasal Cannula Oxygen Flow Rate (L/min) 4 4 10/13/22 22:35 Temperature Temperature Source Pulse Rate 52 L Respiratory Rate 10 L Blood Pressure Blood Pressure Mean Pulse Ox 97 Oxygen Delivery Method Nasal Cannula Oxygen Flow Rate (L/min) 4 MDM MDM MDM Narrative Medical decision making narrative: Patient is confused, not finding an obvious etiology for this, however he does have an elevated troponin and natruretic peptide. The CT angiogram that was done to make sure there is no dissection does not show any acute dissection. I talked to cardiology who recommended admission. They did not recommend any anticoagulation at this time. Patient had a wide differential diagnosis for his confusion and his multiple comorbidities including aortic dissection, I was worried about hyperammonemia, anemia, electrolyte abnormalities or sodium abnormalities. These are not found. EKG does not show a STEMI. Patient will be admitted. I talked to the hospitalist Lab Data Labs: Laboratory Results - last 24 hr 10/13/22 10/13/22 10/13/22 20:44 20:44 20:44 WBC 8.8 RBC 3.09 L Hgb 8.8 L Hct 27.6 L MCV 89.3 MCH 28.5 MCHC 31.9 L RDW Std Deviation 52.2 H RDW Coeff of Lalita 16.1 H Plt Count 230 MPV 10.5 Immature Gran % (Auto) 2.200 H Neut % (Auto) 76.9 H Lymph % (Auto) 7.0 L Jack % (Auto) 13.5 H Eos % (Auto) 0.1 Baso % (Auto) 0.3 Absolute Neuts (auto) 6.8 Absolute Lymphs (auto) 0.62 L Nucleated RBC % 0 Sodium 140 Potassium 3.2 L Chloride 106 Carbon Dioxide 26.0 Anion Gap 8 BUN 21 H Creatinine 1.39 H Estim Creat Clear Calc 75.46 Est GFR (MDRD) Af Amer 69 Est GFR (MDRD) Non-Af 57 L BUN/Creatinine Ratio 15.1 Glucose 130 H Lactic Acid Calcium 9.1 Total Bilirubin 1.90 H AST 69 H ALT 61 Alkaline Phosphatase 42 L Ammonia 24.0 Troponin I High Sens 159 H* B-Natriuretic Peptide 1270.3 H Total Protein 8.1 Albumin 4.1 Globulin 4.0 Albumin/Globulin Ratio 1.0 Urine Color Urine Clarity Urine pH Ur Specific [place] Urine Protein Urine Glucose (UA) Urine Ketones Urine Occult Blood Urine Nitrite Urine Bilirubin Urine Urobilinogen Ur Leukocyte Esterase Urine RBC Urine WBC Ur Squamous Epith Cells Urine Bacteria Urine Mucus 10/13/22 10/13/22 20:44 21:30 WBC RBC Hgb Hct MCV MCH MCHC RDW Std Deviation RDW Coeff of Lalita Plt Count MPV Immature Gran % (Auto) Neut % (Auto) Lymph % (Auto) Jack % (Auto) Eos % (Auto) Baso % (Auto) Absolute Neuts (auto) Absolute Lymphs (auto) Nucleated RBC % Sodium Potassium Chloride Carbon Dioxide Anion Gap BUN Creatinine Estim Creat Clear Calc Est GFR (MDRD) Af Amer Est GFR (MDRD) Non-Af BUN/Creatinine Ratio Glucose Lactic Acid 1.3 Calcium Total Bilirubin AST ALT Alkaline Phosphatase Ammonia Troponin I High Sens B-Natriuretic Peptide Total Protein Albumin Globulin Albumin/Globulin Ratio Urine Color Yellow Urine Clarity Clear Urine pH 6.0 Ur Specific [place] 1.015 Urine Protein 500 H Urine Glucose (UA) Normal Urine Ketones 5 H Urine Occult Blood 150 H Urine Nitrite Negative Urine Bilirubin 1 H Urine Urobilinogen 12 H Ur Leukocyte Esterase 25 H Urine RBC 0-5 SEEN Urine WBC 0-5 SEEN Ur Squamous Epith Cells 0 SEEN Urine Bacteria 0 SEEN Urine Mucus 0 SEEN ABG Data ABG results: ABG 10/13/22 20:41 Specimen Type ART Sample Site R Radial pH 7.47 H Bicarbonate Actual 24.8 Total CO2 26 Base Excess 1 O2 Saturation 96 ABG pCO2 34.4 L ABG pO2 78 Kyler Test Positive O2 Delivery Device Cannula Liter Flow 4.0 Radiography Diagnostic Testing: Clinical Impression(s) from Imaging Studies Chest X-Ray 10/13/22 20:50 IMPRESSION: Suggestion of mild asymmetric diffuse pulmonary edema. Cardiomegaly. Electronically Signed: Fredy Salas MD at 21:21 EDT , X-ray read by me shows some slight pulmonary edema. EKG Initial EKG: Comments: Sinus rhythm with a rate of 54. Normal [place] interval. QTc is 504. Nonspecific intraventricular conduction delay. Nonspecific ST changes. No acute ischemic changes. Interpreted by emergency doctor Discharge Plan Dx/Rx/DC Orders Clinical Impression: CHF (congestive heart failure), Marfan syndrome, Elevated troponin, History of aortic dissection Disposition Disposition: Acute Care Hospital [facility]
[2022-10-13 20:46] LABS: Allen Test Positive; Base Excess 1 mmol/L (-2 to +2); Bicarbonate 24.8 mmol/L (22-26); Blood Gas Specimen Type ART; O2 Delivery Device Cannula; PO2 78 mmHG (75-100); SITE R Radial; SO2 96 % (95-99); Total Carbon Dioxide 26 mmol/L; pCO2 34.4 mmHg (35-45); pH 7.47 (7.35-7.45)
--- NOTE | 2022-10-13 20:50 | RAD_ITS ---
STUDY: X-RAY CHEST REASON FOR EXAM: Male, 51 years old. sob TECHNIQUE: Single AP portable view of the chest. COMPARISON: 03/21/2021. FINDINGS: Normal lung volumes. Hazy pulmonary density bilaterally worse on the right than most suggestive of mild edema. No definite focal infiltrates. No effusions. Cardiomegaly. Previous median sternotomy. Stable appearance of stent graft in the proximal descending thoracic aorta. Normal visualized thoracic spine. Normal visualized ribs, clavicles, and shoulders. There is no demonstrated abnormality of the visualized soft tissue structures of the upper abdomen. RAD/Chest 1 View (Portable) IMPRESSION: Suggestion of mild asymmetric diffuse pulmonary edema. Cardiomegaly. Electronically Signed: Fredy Salas MD at 21:21 EDT ,
[2022-10-13 21:24] LABS: Absolute Lymphocyte Count 0.62 X10^3/uL (0.83-4.51); Absolute Neutrophil Count 6.8 X10^3/uL (2.0-7.7); Basophil# 0.03 X10^3/uL; Basophil% 0.3 % (0-1); Eosinophil# 0.01 X10^3/uL; Eosinophils% 0.1 % (0-5); Hematocrit 27.6 % (40-54); Hemoglobin 8.8 g/dL (13.0-16.5); Lymphocyte # 0.62 X10^3/ul (0.83-4.51); Mean Corp Hgb Conc 31.9 g/dL (32-36); Mean Corpuscular Hgb 28.5 pg (27.0-32.0); Mean Corpuscular Volume 89.3 fL (80-94); Mean Platelet Vol. 10.5 fl (6.2-12.0); Monocyte# 1.19 X10^3/uL; Monocyte% 13.5 % (0-10); NRBC Flagged by Analyzer 0 % (0-5); Neutrophil # 6.77 X10^3/uL (2.7-7.7); Neutrophil % 76.9 % (47-70); Platelet Count 230 K/mm3 (150-450); RBC Distribution Width CV 16.1 % (11.6-14.6); RBC Distribution Width SD 52.2 fl (35.1-43.9); Red Blood Count 3.09 M/mm3 (4.6-6.2); White Blood Count 8.8 K/mm3 (4.4-11.0)
[2022-10-13 21:27] VITALS: PULSE 57; RESP 16; O2SAT 97
[2022-10-13 21:34] LABS: Lactic Acid 1.3 mmol/L (0.4-1.9)
[2022-10-13 21:35] LABS: Bacteria 0 SEEN /hpf (None Seen); Mucous, Urine 0 SEEN /hpf (<or=2+); Squamous Epithelial Cells - UA 0 SEEN /hpf (0-5)
[2022-10-13 21:39] LABS: Color, Urine Yellow (Yellow); Glucose, Dipstick Normal (Normal); Ketone-Dipstick 5 mg/dl (Negative); Leukocyte Esterase-Dipstick 25 /ul (Negative); Nitrite-Dipstick Negative (Negative); Occult Blood-Urine 150 /ul (Negative); Protein-Dipstick 500 mg/dl (Negative); Specific Gravity, Urine 1.015 (1.002-1.030); Urine Clarity Clear (Clear); Urine Urobilinogen 12 mg/dl (Normal)
[2022-10-13 21:40] LABS: AST(SGOT) 69 U/L (15-37); Alanine Aminotransfer ALT/SGPT 61 U/L (16-61); Albumin, Serum 4.1 g/dL (3.2-5.0); Alkaline Phosphatase 42 U/L (45-117); Anion Gap 8 (5-15); BUN 21 mg/dL (7-18); BUN/Creat Ratio 15.1 RATIO (10-20); Calcium,Total 9.1 mg/dL (8.5-10.1); Chloride 106 mmol/L (98-107); Creatinine, Serum 1.39 mg/dL (0.70-1.30); EST Glomerular Filtration Rate 57 mL/min (>60); Est Glom Filt Rate - Afr Amer 69 mL/min (>60); Estimated Creatinine Clearance 75.46 ml/min; Glucose 130 mg/dL (74-106); Potassium 3.2 mmol/L (3.5-5.1); Protein, Total 8.1 g/dL (6.4-8.2); Sodium Level 140 mmol/L (136-145); Troponin-I HS 159 pg/mL (3.0-78.0)
[2022-10-13 21:42] LABS: BNP,B-Type NATRIURETIC PEPTIDE 1270.3 pg/mL (0-100)
[2022-10-13 21:44] LABS: Urine Bilirubin Dipstick 1 mg/dL (Negative)
[2022-10-13 21:46] LABS: Red Blood Cells-Urine 0-5 SEEN /hpf (0-5); White Blood Cells 0-5 SEEN /hpf (0-5)
--- NOTE | 2022-10-13 21:56 | CT_ITS ---
STUDY: CTA CHEST REASON FOR EXAM: Male, 51 years old. Aortic dissection with history of Marfan syndrome, hypertension, chronic aortic dissection and previous aortic repair, mitral valve repair. TECHNIQUE: CT angiogram of chest was performed with the intravenous administration of 100 ml [id number]. Post-processing of the angiographic images was performed, with MIP and MPR reconstructions. Individualized dose optimization techniques were used for this CT. COMPARISON: Most recent comparison CTA chest from 08/31/2021. FINDINGS: PULMONARY ARTERIES: Pulmonary arteries are poorly opacified secondary to imaging protocol and contrast bolus timing. No central pulmonary embolus demonstrated. AORTA AND VISUALIZED GREAT VESSELS: Previous thoracic aortic repair with stable thoracic aortic endograft extending from distal aortic arch into proximal third of descending thoracic aorta. No new aortic dissection. 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 No periaortic hematoma. Stable small intramural ulcer along right side of upper abdominal aorta at level of diaphragmatic hiatus, measuring 2.5 cm craniocaudal length and 1.8 cm maximum diameter. No adjacent hematoma or inflammation. Great vessels are patent. HEART AND PERICARDIUM: Stable enlarged heart. Status post sternotomy and CABG. No significant pericardial effusion. MEDIASTINUM AND CLAUDETTE: Multiple mediastinal lymph nodes again noted but no pathologic, bulky adenopathy detected. Esophagus is unremarkable. LUNGS, PLEURA AND LARGE AIRWAYS: Multilobar patchy consolidation and groundglass alveolar opacities present within right upper lobe, right middle lobe and right lower lobe are worse compared with prior exam. Mild atelectatic changes demonstrated within left lung. Trace right pleural effusion now present. No pneumothorax. BONES: Previous sternotomy. Osseous structures are stable. CHEST WALL: No chest wall mass or acute findings. VISUALIZED ABDOMEN: Stable enlarged fatty liver and slightly enlarged spleen. Partial fatty replacement of pancreas. CT/CTA Chest W/WO Contrast IMPRESSION: 1. Multilobar pulmonary airspace disease/infiltrate within right lung, with trace right pleural effusion. 2. Stable postop changes and aneurysmal dilatation of thoracic aorta with small chronic intramural ulcer at level of diaphragmatic hiatus. No acute aortic dissection, rupture or periaortic hematoma. 3. Stable cardiomegaly. 4. Stable hepatosplenomegaly with hepatic and pancreatic steatosis. Electronically Signed: Isaak Byrd MD at 23:54 EDT ,
[2022-10-13 22:35] VITALS: PULSE 52; RESP 10; O2SAT 97
[2022-10-14] VITALS (12 sets, daily range): BP systolic 113–197; BP diastolic 59–88; PULSE 49–83; RESP 14–18; TEMP 36.6–37.1; O2SAT 85–97; BMI 26.0
--- NOTE | 2022-10-14 00:51 | PCM.HP.STD ---
HPI - General General Date of Admission: 10/14/22 Date of Service: 10/14/22 Chief Complaint: Confusion HPI Narrative LEIDY DC, is a 51 M who presents to the emergency room with chief complaint of confusion. Patient has significant past medical history of Marfan syndrome and status post aortic dissection in the past which has been repaired. Patient complains of shortness of breath and chronic pain. Currently patient is a poor historian. CT scan is negative for acute dissection of the aorta however there is infiltrative pneumonia seen. Troponin is also elevated 159. Patient currently denies any chest pain, fever or chills, or nausea or vomiting. Patient will be admitted to progressive care unit and cardiac enzymes will be cycled per conversation between ER physician and cardiology. Antibiotics will be started due to infiltrative pneumonia seen on CT scan. 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 Essential (primary) hypertension (05/20/18) GERD (gastroesophageal reflux disease) Hyperkalemia Hyperlipidemia Hypertensive urgency Hypoxia Infection of external auditory canal Marfans syndrome Nonobstructive atherosclerosis of coronary artery NEO (obstructive sleep apnea) Uncontrolled hypertension Home Medications acetaminophen 500 mg tablet 1,000 mg PO DAILY PRN Pain 05/19/18 [History Last Taken 05/19/18] ibuprofen 200 mg tablet 400 - 600 mg PO DAILY PRN Pain 05/19/18 [History Last Taken 05/19/18] zolpidem 10 mg tablet 10 mg PO QHS PRN Sleep 01/18/21 [History Last Taken 08/30/21] handicap placcard #1 ea 03/15/21 [Rx Last Taken Unknown] fenofibrate 160 mg tablet 160 mg PO DAILY #90 tabs 09/18/21 [Rx Last Taken Unknown] albuterol sulfate 90 mcg/actuation aerosol inhaler 2 puff inhalation Q4H PRN shortness of breath or wheezing #8.5 grams 10/03/21 [Rx Last Taken Unknown] rabeprazole 20 mg tablet,delayed release (AcipHex) 20 mg PO DAILY stomach #90 tabs 07/17/22 [Rx Last Taken Unknown] quetiapine 200 mg tablet 200 mg PO .Four times a day sleep #120 tabs 09/01/22 [Rx Last Taken Unknown] aspirin 81 mg tablet,delayed release (Adult Aspirin Regimen) 81 mg PO QDAY #90 tabs 09/16/22 [Rx Last Taken Unknown] carvedilol 25 mg tablet 50 mg PO BID #360 tabs 09/16/22 [Rx Last Taken Unknown] clonidine HCl 0.1 mg tablet 0.1 mg PO BID blood pressure #180 tabs 09/16/22 [Rx Last Taken Unknown] clopidogrel 75 mg tablet 75 mg PO DAILY heart health #90 tabs 09/16/22 [Rx Last Taken Unknown] hydralazine 50 mg tablet 150 mg PO TID #810 tabs 09/16/22 [Rx Last Taken Unknown] nifedipine 90 mg tablet,extended release 24 hr 90 mg PO DAILY BP #90 tabs 09/16/22 [Rx Last Taken Unknown] buprenorphine 20 mcg/hour weekly transdermal patch 10/13/22 [History Last Taken Unknown] citalopram 20 mg tablet mg 10/13/22 [History Last Taken Unknown] fluoxetine 10 mg tablet 10 mg PO DAILY 10/13/22 [History Last Taken Unknown] hydrocodone-acetaminophen 5-325mg 5mg-325mg 1 tab PO BID PRN Pain 10/13/22 [History Last Taken Unknown] isosorbide dinitrate 30 mg tablet 30 mg PO BID blood pressure 10/13/22 [History Last Taken Unknown] levothyroxine 25 mcg tablet mcg 10/13/22 [History Last Taken Unknown] lorazepam 1 mg tablet mg 10/13/22 [History Last Taken Unknown] Allergy/AdvReac Type Severity Reaction Status Date / Time ciprofloxacin [From Cipro] Allergy Rash Verified 10/13/22 19:47 ciprofloxacin HCl Allergy Rash Verified 10/13/22 19:47 [From Cipro] sulfamethoxazole Allergy Rash Verified 10/13/22 19:47 [From Bactrim] tramadol Allergy Itching Verified 10/13/22 19:47 trimethoprim [From Bactrim] Allergy Rash Verified 10/13/22 19:47 Family History Son Marfans syndrome Daughter Marfans syndrome Father Hypertension Grandfather Heart disease Myocardial infarction CVA (cerebral vascular accident) Grandmother Heart disease Surgical History H/O coronary artery bypass surgery (03/08/11) History of hand surgery History of left heart catheterization (12/14/20) History of mitral valve repair (03/08/11) History of open reduction and internal fixation (ORIF) procedure (2017) History of surgical fusion joint History of tonsillectomy Hx of ascending aorta replacement (03/08/11) Social History household members: spouse Smoking Status: Never smoker alcohol intake: current alcohol intake frequency: a few times a month substance use type: does not use ROS Review of Systems ROS Unobtainable: due to mental status Constitutional Constitutional: Denies fever(s) Cardiovascular Cardiovascular: Denies chest pain Respiratory/Chest Respiratory/Chest: Reports shortness of breath at rest Vital Signs Vital Signs Vital Signs: 10/13/22 19:44 10/13/22 20:12 10/13/22 21:27 Temperature 98.1 F Temperature Source Temporal Pulse Rate 58 L 54 L 57 L Respiratory Rate 16 11 L 16 Blood Pressure 198/83 H 179/92 H Blood Pressure Mean 121 121 Pulse Ox 98 95 97 Oxygen Delivery Method Nasal Cannula Nasal Cannula Oxygen Flow Rate (L/min) 4 4 10/13/22 22:35 Temperature Temperature Source Pulse Rate 52 L Respiratory Rate 10 L Blood Pressure Blood Pressure Mean Pulse Ox 97 Oxygen Delivery Method Nasal Cannula Oxygen Flow Rate (L/min) 4 Weight Weight: 265 lb 9.6 oz Body Mass Index (BMI) 32.3 Physical Exam Const alert General Appearance: cooperative Orientation / Consciousness: confused HEENT normocephalic and head/scalp atraumatic Eyes PERRL and EOMs intact bilaterally Neck no lymphadenopathy Lymph Lymphatic: no lymphadenopathy noted Resp normal respiratory effort and normal air movement Auscultation: Negative for rhonchi or wheezes Cardio regular rhythm, S1 normal heart sound and S2 normal heart sound Rate: bradycardia GI normal to inspection, nondistended, normoactive bowel sounds GI Narrative: Protuberant/distended Palpation: Negative for tender Extremity normal capillary refill Skin General Skin Exam: no breakdown Neuro no focal motor deficits and no sensory deficits noted Neuro Narrative: Patient is alert to person and place but was slightly confused on time of day/date Speech: speech normal Psych cooperative and affect normal Results Lab / Micro Data Result Diagrams: 10/13/22 20:44 10/13/22 20:44 Labs: Laboratory Results - last 24 hr 10/13/22 20:44: WBC 8.8, RBC 3.09 L, Hgb 8.8 L, Hct 27.6 L, MCV 89.3, MCH 28.5, MCHC 31.9 L, RDW Std Deviation 52.2 H, RDW Coeff of Lalita 16.1 H, Plt Count 230, MPV 10.5, Immature Gran % (Auto) 2.200 H, Neut % (Auto) 76.9 H, Lymph % (Auto) 7.0 L, [place] % (Auto) 13.5 H, Eos % (Auto) 0.1, Baso % (Auto) 0.3, Absolute Neuts (auto) 6.8, Absolute Lymphs (auto) 0.62 L, Nucleated RBC % 0 10/13/22 20:44: Sodium 140, Potassium 3.2 L, Chloride 106, Carbon Dioxide 26.0, Anion Gap 8, BUN 21 H, Creatinine 1.39 H, Estim Creat Clear Calc 75.46, Est GFR (MDRD) Af Amer 69, Est GFR (MDRD) Non-Af 57 L, BUN/Creatinine Ratio 15.1, Glucose 130 H, Calcium 9.1, Total Bilirubin 1.90 H, AST 69 H, ALT 61, Alkaline Phosphatase 42 L, Troponin I High Sens 159 H*, Total Protein 8.1, Albumin 4.1, Globulin 4.0, Albumin/Globulin Ratio 1.0 10/13/22 20:44: Ammonia 24.0, B-Natriuretic Peptide 1270.3 H 10/13/22 20:44: Lactic Acid 1.3 10/13/22 21:30: Urine Color Yellow, Urine Clarity Clear, Urine pH 6.0, Ur Specific [place] 1.015, Urine Protein 500 H, Urine Glucose (UA) Normal, Urine Ketones 5 H, Urine Occult Blood 150 H, Urine Nitrite Negative, Urine Bilirubin 1 H, Urine Urobilinogen 12 H, Ur Leukocyte Esterase 25 H, Urine RBC 0-5 SEEN, Urine WBC 0-5 SEEN, Ur Squamous Epith Cells 0 SEEN, Urine Bacteria 0 SEEN, Urine Mucus 0 SEEN ABG Data ABG results: ABG 10/13/22 20:41 Specimen Type ART Sample Site R Radial pH 7.47 H Bicarbonate Actual 24.8 Total CO2 26 Base Excess 1 O2 Saturation 96 ABG pCO2 34.4 L ABG pO2 78 Kyler Test Positive O2 Delivery Device Cannula Liter Flow 4.0 Radiology Impression Chest X-Ray 10/13/22 20:50 IMPRESSION: Suggestion of mild asymmetric diffuse pulmonary edema. Cardiomegaly. Electronically Signed: Fredy Salas MD at 21:21 EDT , Chest CTA 10/13/22 21:56 IMPRESSION: 1. Multilobar pulmonary airspace disease/infiltrate within right lung, with trace right pleural effusion. 2. Stable postop changes and aneurysmal dilatation of thoracic aorta with small chronic intramural ulcer at level of diaphragmatic hiatus. No acute aortic dissection, rupture or periaortic hematoma. 3. Stable cardiomegaly. 4. Stable hepatosplenomegaly with hepatic and pancreatic steatosis. Electronically Signed: Isaak Byrd MD at 23:54 EDT , Assessment & Plan Assessment/Plan (1) Marfan syndrome: (2) Elevated troponin: (3) History of aortic dissection: (4) SOB (shortness of breath): (5) Uncontrolled hypertension: (6) Pneumonia: PLAN: Plan 1. Pneumonia?admit patient to progressive care unit, start Levaquin 500 mg IV daily, oxygen as needed per routine protocol 2. Elevated troponin?cycle cardiac enzymes and refer to cardiology due to history of Marfan syndrome and aortic dissection 3. Uncontrolled hypertension?add as needed hydralazine 4. DVT prophylaxis?low molecular weight heparin Charges/Coding Visit Charges Inpatient E&M: 56051 Init Hosp L2
[2022-10-14 01:13] LABS: Troponin-I HS 144 pg/mL (3.0-78.0)
--- NOTE | 2022-10-14 01:15 | NURSING ---
Patient has a buprenophrine patch to right deltoid no date on it came to the unit with it on. Patient does not know when it was put on states manage his patch.
--- NOTE | 2022-10-14 01:45 | NURSING ---
assumed care of patient at 0145
[2022-10-14] MEDS: 0.9% Saline Lock 10 ML Syringe IV (02:15)
[2022-10-14] MEDS: Ceftriaxone 1 GM/50 ML BAG IV ×2 (02:15→21:25)
[2022-10-14] MEDS: QUEtiapine 100 MG Tablet 200 MG PO ×4 (02:16→21:24)
[2022-10-14] MEDS: cloNIDine HCl 0.1 MG Tablet PO ×3 (02:17→21:25)
[2022-10-14] MEDS: Isosorbide DN 30 MG Tablet PO ×3 (02:17→21:25)
[2022-10-14] MEDS: hydrALAZINE 50 MG Tablet 150 MG PO (02:19)
[2022-10-14 02:44] LABS: Absolute Lymphocyte Count 0.55 X10^3/uL (0.83-4.51); Absolute Neutrophil Count 7.4 X10^3/uL (2.0-7.7); Basophil# 0.04 X10^3/uL; Basophil% 0.4 % (0-1); Eosinophil# 0.01 X10^3/uL; Eosinophils% 0.1 % (0-5); Hematocrit 26.3 % (40-54); Hemoglobin 8.3 g/dL (13.0-16.5); Lymphocyte # 0.55 X10^3/ul (0.83-4.51); Lymphocyte % 5.9 % (19-41); Mean Corp Hgb Conc 31.6 g/dL (32-36); Mean Corpuscular Hgb 28.7 pg (27.0-32.0); Mean Platelet Vol. 10.4 fl (6.2-12.0); Monocyte% 12.8 % (0-10); NRBC Flagged by Analyzer 0.3 % (0-5); Neutrophil # 7.39 X10^3/uL (2.7-7.7); POSITIVE DIFFERENTIAL YES; Platelet Count 200 K/mm3 (150-450); RBC Distribution Width CV 16.1 % (11.6-14.6); RBC Distribution Width SD 53.1 fl (35.1-43.9); Red Blood Count 2.89 M/mm3 (4.6-6.2); White Blood Count 9.4 K/mm3 (4.4-11.0)
[2022-10-14 02:46] LABS: Differential Indicated SCAN CRITERIA MET
[2022-10-14 02:59] LABS: Anion Gap 8 (5-15); BUN 21 mg/dL (7-18); Calcium,Total 8.7 mg/dL (8.5-10.1); Chloride 107 mmol/L (98-107); Creatinine, Serum 1.31 mg/dL (0.70-1.30); EST Glomerular Filtration Rate 61 mL/min (>60); Est Glom Filt Rate - Afr Amer 73 mL/min (>60); Estimated Creatinine Clearance 97.04 ml/min; Glucose 153 mg/dL (74-106); Potassium 3.2 mmol/L (3.5-5.1); Sodium Level 139 mmol/L (136-145)
[2022-10-14 03:08] LABS: Troponin-I HS 137 pg/mL (3.0-78.0)
[2022-10-14] MEDS: HYDROcodone Bitartrate/Apap 5/325 Tablet PO ×2 (04:15→18:51)
[2022-10-14] MEDS: Acetaminophen 500 MG Tablet 1000 MG PO ×2 (07:56→21:29)
[2022-10-14] MEDS: Carvedilol 25 MG Tablet 50 MG PO (07:57)
[2022-10-14] MEDS: Aspirin E.C. 81 MG Tablet PO (07:57)
[2022-10-14] MEDS: Clopidogrel Bisulfate 75 MG Tablet PO (07:58)
[2022-10-14] MEDS: NIFEdipine 90 MG Tablet PO (07:58)
[2022-10-14] MEDS: FLUoxetine 10 MG Capsule PO (07:58)
[2022-10-14] MEDS: Pantoprazole Sodium 20 MG Tablet PO (07:58)
[2022-10-14] MEDS: Enoxaparin 40 MG/0.4 ML Syringe SC (07:58)
[2022-10-14] MEDS: Fenofibrate 145 MG Tablet PO (07:59)
--- NOTE | 2022-10-14 08:28 | PCM.PN.HOSP ---
Reason for Visit Reason for Visit: Diagnoses Essential (primary) hypertension (10/14/22) Pneumonia, unspecified organism (10/14/22) Marfan's syndrome, unspecified (10/14/22) Shortness of breath (10/14/22) Other specified abnormalities of plasma proteins (10/14/22) Personal history of other diseases of the circulatory system (10/14/22) Subjective Subjective Opens eyes but does not wish to interact. Objective Data Objective Data Vital Signs: Vital Signs Temp Pulse Resp BP Pulse Ox O2 Del Method O2 Flow Rate 36.8 C 60 18 133/66 H 94 Nasal Cannula 3 10/14/22 04:13 10/14/22 04:13 10/14/22 04:13 10/14/22 04:13 10/14/22 04:30 10/14/22 04:30 10/14/22 04:30 Oxygen Flow Rate (L/min) 3 Oxygen Delivery Method Nasal Cannula Weight: 118.6 kg Body Mass Index (BMI) 26.0 Intake & Output: Intake and Output for Last 24 Hours 10/12/22 10/13/22 10/14/22 23:59 23:59 23:59 Intake Total 305 / 305 Output Total 200 / 200 Balance 105 / 105 Lab / Micro Data Result Diagrams: 10/14/22 02:35 10/14/22 02:35 Labs: Laboratory Results - last 24 hr 10/13/22 20:44: WBC 8.8, RBC 3.09 L, Hgb 8.8 L, Hct 27.6 L, MCV 89.3, MCH 28.5, MCHC 31.9 L, RDW Std Deviation 52.2 H, RDW Coeff of Lalita 16.1 H, Plt Count 230, MPV 10.5, Immature Gran % (Auto) 2.200 H, Neut % (Auto) 76.9 H, Lymph % (Auto) 7.0 L, [place] % (Auto) 13.5 H, Eos % (Auto) 0.1, Baso % (Auto) 0.3, Absolute Neuts (auto) 6.8, Absolute Lymphs (auto) 0.62 L, Nucleated RBC % 0 10/13/22 20:44: Sodium 140, Potassium 3.2 L, Chloride 106, Carbon Dioxide 26.0, Anion Gap 8, BUN 21 H, Creatinine 1.39 H, Estim Creat Clear Calc 75.46, Est GFR (MDRD) Af Amer 69, Est GFR (MDRD) Non-Af 57 L, BUN/Creatinine Ratio 15.1, Glucose 130 H, Calcium 9.1, Total Bilirubin 1.90 H, AST 69 H, ALT 61, Alkaline Phosphatase 42 L, Troponin I High Sens 159 H*, Total Protein 8.1, Albumin 4.1, Globulin 4.0, Albumin/Globulin Ratio 1.0 10/13/22 20:44: Ammonia 24.0, B-Natriuretic Peptide 1270.3 H 10/13/22 20:44: Lactic Acid 1.3 10/13/22 21:30: Urine Color Yellow, Urine Clarity Clear, Urine pH 6.0, Ur Specific [place] 1.015, Urine Protein 500 H, Urine Glucose (UA) Normal, Urine Ketones 5 H, Urine Occult Blood 150 H, Urine Nitrite Negative, Urine Bilirubin 1 H, Urine Urobilinogen 12 H, Ur Leukocyte Esterase 25 H, Urine RBC 0-5 SEEN, Urine WBC 0-5 SEEN, Ur Squamous Epith Cells 0 SEEN, Urine Bacteria 0 SEEN, Urine Mucus 0 SEEN 10/14/22 00:50: Troponin I High Sens 144 H* 10/14/22 02:35: WBC 9.4, RBC 2.89 L, Hgb 8.3 L, Hct 26.3 L, MCV 91.0, MCH 28.7, MCHC 31.6 L, RDW Std Deviation 53.1 H, RDW Coeff of Lalita 16.1 H, Plt Count 200, MPV 10.4, Immature Gran % (Auto) 1.800 H, Neut % (Auto) 79.0 H, Lymph % (Auto) 5.9 L, [place] % (Auto) 12.8 H, Eos % (Auto) 0.1, Baso % (Auto) 0.4, Absolute Neuts (auto) 7.4, Absolute Lymphs (auto) 0.55 L, Nucleated RBC % 0.3 10/14/22 02:35: Sodium 139, Potassium 3.2 L, Chloride 107, Carbon Dioxide 24.0, Anion Gap 8, BUN 21 H, Creatinine 1.31 H, Estim Creat Clear Calc 97.04, Est GFR (MDRD) Af Amer 73, Est GFR (MDRD) Non-Af 61, BUN/Creatinine Ratio 16.0, Glucose 153 H, Calcium 8.7 10/14/22 02:35: Troponin I High Sens 137 H* ABG Data ABG results: ABG 10/13/22 20:41 Specimen Type ART Sample Site R Radial pH 7.47 H Bicarbonate Actual 24.8 Total CO2 26 Base Excess 1 O2 Saturation 96 ABG pCO2 34.4 L ABG pO2 78 Kyler Test Positive O2 Delivery Device Cannula Liter Flow 4.0 Radiography Diagnostic Testing: Radiology Impression Chest X-Ray 10/13/22 20:50 IMPRESSION: Suggestion of mild asymmetric diffuse pulmonary edema. Cardiomegaly. Electronically Signed: Fredy Salas MD at 21:21 EDT , Chest CTA 10/13/22 21:56 IMPRESSION: 1. Multilobar pulmonary airspace disease/infiltrate within right lung, with trace right pleural effusion. 2. Stable postop changes and aneurysmal dilatation of thoracic aorta with small chronic intramural ulcer at level of diaphragmatic hiatus. No acute aortic dissection, rupture or periaortic hematoma. 3. Stable cardiomegaly. 4. Stable hepatosplenomegaly with hepatic and pancreatic steatosis. Electronically Signed: Isaak Byrd MD at 23:54 EDT , Physical Exam Const Constitutional Narrative: On CPAP. Opens eyes to interaction but does not engage with me beyond that. Resp normal respiratory effort, no retractions, no use of accessory muscles and clear to auscultation bilaterally Cardio regular rate, regular rhythm, S1 normal heart sound and S2 normal heart sound GI normal to inspection, nondistended, normoactive bowel sounds, soft to palpation, non-tender and non-distended Extremity normal to inspection Neuro oriented x3 and moves all extremities Psych affect normal Assessment & Plan Assessment/Plan (1) Pneumonia: QUALIFIERS: Laterality: right Lung location: unspecified part of lung Pneumonia type: due to Pneumococcus Qualified Code(s): J13 - Pneumonia due to Streptococcus pneumoniae PLAN: Diffuse right-sided pneumonia Abx w CTX and azithromycin PEP therapy Check SCx, BCx, Strep and legionella antigens (2) Elevated troponin: PLAN: trending down I suspect type II NSTEMI from pneumonia Cards consult (3) Uncontrolled hypertension: PLAN: improved Continue carvedilol 50 BID, isosorbide 30 BID, nifedipine 90 daily, hydralazine 150 TID (4) Hypokalemia: PLAN: replace Magnesium 2.1 PLAN: Plan Chronic conditions: marfan's syndrome h/o aortic dissection s/p replair VTE prophylaxis: LMWH Charges/Coding Visit Charges Inpatient E&M: 36715 Subs Hosp L2
[2022-10-14 08:48] LABS: Magnesium 2.1 mg/dL (1.6-2.6)
[2022-10-14] MEDS: Potassium Chloride Oral Tablet 20 MEQ 40 MEQ PO (10:18)
--- NOTE | 2022-10-14 11:24 | ECHOCS_ITS ---
Reason For Study: DYSPNEA/ ELEVATED TROP Procedure This was a 2D Doppler, Color Flow transthoracic echocardiogram. Technically difficult study due to confused uncooperative patient. Contrast injection was performed. Exam performed portable in patient room. Left Ventricle Normal LV size. The estimated ejection fraction is 70 %. Diastolic function is indeterminate. No regional wall motion abnormalities noted. Right Ventricle Normal RV size. Normal systolic function. Atria The left atrium is mildly enlarged. The right atrium is mildly enlarged. No doppler evidence for ASD. Bubble contrast study negative for right to left interatrial shunt. Mitral Valve There is no mitral valve stenosis. Trivial mitral valve insufficiency. Tricuspid Valve There is no tricuspid stenosis. Trivial tricuspid valve insufficiency. Pulmonary artery systolic pressure is 50 mmHg. Aortic Valve Trisinus/trileaflet aortic valve. There is no aortic stenosis. No aortic valve insufficiency. Pulmonic Valve There is no pulmonic valvular stenosis. No pulmonic valve insufficiency. Great Vessels Normal aortic root. Pericardium/Pleural No pericardial effusion. Medication Diluted definity 1.5ml given slow IV push to enhance endocardial definition. Performed a rapid injection of agitated mix of 9 cc saline and 1cc air to assess for atrial septal defect. MMode/2D Measurements & Calculations LVIDd: 5.8 cm IVSd: 1.7 cm LVOT diam: 2.6 cm LVIDs: 3.8 cm LVPWd: 1.5 cm RVDd: 3.3 cm FS: 34.3 % LVOT area: 5.5 cm2 Ao root diam: 4.1 cm LAV(MOD-bp): 139.2 ml LVAd ap4: 41.0 cm2 LAV(MOD-bp) Indexed: 52.2 ml/m2 LVLd ap4: 9.1 cm LAV(MOD-sp2): 113.6 ml EDV(MOD-sp4): 142.7 ml LAV(MOD-sp4): 144.1 ml EDV(sp4-el): 156.1 ml LVAs ap4: 25.9 cm2 LVLs ap4: 8.4 cm ESV(MOD-sp4): 69.1 ml ESV(sp4-el): 67.3 ml EF(MOD-sp4): 51.6 % EF(sp4-el): 56.9 % SV(MOD-sp4): 73.6 ml SV(sp4-el): 88.8 ml LA A4 area: 35.7 cm2 LA dimension(2D): 4.6 cm RA A4 area: 33.7 cm2 Time Measurements MV dec time: 0.24 sec Doppler Measurements & Calculations MV E max tu: 72.8 cm/sec Lat Peak E' Tu: 10.0 cm/sec Med Peak E' Tu: 7.8 cm/sec MV A max tu: 37.8 cm/sec E/E' lat: 7.3 E/E' med: 9.4 MV E/A: 1.9 MV V2 max: 70.7 cm/sec MV dec slope: 308.1 cm/sec2 Ao V2 max: 170.7 cm/sec MV max P.0 mmHg Ao max P.7 mmHg MV V2 mean: 39.0 cm/sec Ao V2 mean: 120.6 cm/sec MV mean P.73 mmHg Ao mean P.7 mmHg MV V2 VTI: 24.2 cm Ao V2 VTI: 38.6 cm MVA(VTI): 8.0 cm2 AV (velocity ratio): 0.91 BECKA(I,D): 5.0 cm2 BECKA(V,D): 4.6 cm2 LV V1 max: 144.6 cm/sec MR max tu: 347.4 cm/sec SV(LVOT): 192.8 ml LV V1 max P.4 mmHg MR max P.3 mmHg LV V1 mean P.0 mmHg LV V1 mean: 106.1 cm/sec LV V1 VTI: 35.3 cm PA V2 max: 119.4 cm/sec TR max tu: 347.7 cm/sec PA V2 mean: 77.8 cm/sec TR max P.4 mmHg ECHO/Echo Complete W/ Contrast Interpretation Summary The estimated ejection fraction is 70 %. Diastolic function is indeterminate. Trivial mitral valve insufficiency. The left atrium is mildly enlarged. The right atrium is mildly enlarged. Ordering Physician: Miko Ramirez Referring Physician: DHAVAL BRADEN Performed By: Ayana Zamora RCS
--- NOTE | 2022-10-14 13:45 | CASEMGMT ---
RN CM attepmted assessment at this time. Patient having ECHO at this time. Will attempt again at later time.
--- NOTE | 2022-10-14 14:25 | CHAPLAIN ---
Addendum entered by Joseph Jimenez 10/14/22 14:27: actually the second visit attempt was not possible due to diagnostic testing in the room, not sleep' patient was not on air flow at either attempted visit Original Note: Type of Pastoral Visit ___ Initial Visit ___ Follow-up Visit ___ On-call Visit ___ General Patient Visit ___ Spiritual Assessment ___ Family Conference ___ Bereavement ___ Rapid Response ___ Code Blue ___ Other (describe below) Pastoral Care Referral From ___ Patient ___ Family ___ Nurse ___ Physician ___ Bicycle Fitter ___ Timber Poisoner ___ Other (describe below) Sacrament/Intervention ___ Active listening ___ Anointing ___ Lutheran ___ Bereavement ___ Communion ___ Vale exploration ___ ___ Life review ___ Prayer ___ Reconciliation ___ Sacrament of Sick ___ Supportive presence ___ Wedding ___ Other (describe below) Pastoral Comments patient visit by this financial planning adviser attempted twice; pt is sleeping on air flow
--- NOTE | 2022-10-14 15:56 | PCM.CONS.C ---
Assessment & Plan Assessment/Plan (1) Elevated brain natriuretic peptide (BNP) level: PLAN: Patient has a right-sided infiltrate and elevated pulmonary pressures that could be related to underlying pneumonia. Last echo in our system reveals normal pulmonary pressures. This could explain patient's elevated BNP. He has preserved systolic function. Diastolic function is indeterminate. He could have a component of diastolic dysfunction. From a volume standpoint he appears to be euvolemic. At this time treatment of the underlying pneumonia may be all that is needed. (2) Elevated troponin: PLAN: Patient's recent angiogram was reviewed. Troponin has been elevated in the indeterminate range. This does not appear to be related to his coronary artery disease. Since his CABG patient has had 2 coronary angiogram's which did not reveal any significant CAD that needed intervention. We will continue to monitor this without any further intervention at this time. (3) Hx of ascending aorta replacement: (4) H/O coronary artery bypass surgery: (5) History of mitral valve repair: (6) Marfan syndrome: HPI Consult Data Date of Consult: 10/14/22 HPI Narrative Reason for Consultation: Elevated troponin, shortness of breath, altered mental status HPI Narrative: LEIDY DC, is a 51 M who presents with altered mental status. He also had some shortness of breath. CT chest rule out dissection but patient was found to have right-sided pneumonia. He is not a great historian. He does deny chest pain. He has a history of Marfan's syndrome and hypertension who presented with a dissecting aortic aneurysm in 2010.? He underwent a valve sparing aortic root replacement with reimplantation of the coronary arteries and the aortic valve.? This is known as the Niels's procedure.? He had a 32 mm Valsalva Dacron graft and coronary bypass surgery of the right coronary artery.? He also underwent an ascending aorta and arch repair with a 28 mm Dacron graft, and frozen elephant trunk procedure with direct placement of a 34 x 10 mm Avon-Jacob thoracic stent graft.? He also had mitral valve repair and plication of the anterior mitral valve leaflet.? In 2015 he was transferred to the [facility] with chest discomfort he underwent a left heart catheterization which demonstrated patent coronary arteries, left ventricular systolic function was normal and his repaired mitral valve as well as the reimplanted aortic valve were noted to be competent. In December 2020 he underwent coronary angiography again which revealed mild chitimacha coronary artery disease and patent SVG to RCA (patent 1 out of 1 bypass grafts). During this admission his troponin is mildly elevated, BNP is elevated, hemoglobin has been slowly dropping and is now between 8 and 9. [facility] Medical History Abnormal stress test Acute maxillary sinusitis, unspecified Apnea, sleep Dissecting aneurysm of ascending aorta Dissection of vertebral artery Essential (primary) hypertension (05/20/18) GERD (gastroesophageal reflux disease) Hyperkalemia Hyperlipidemia Hypertensive urgency Hypoxia Infection of external auditory canal Marfans syndrome Nonobstructive atherosclerosis of coronary artery NEO (obstructive sleep apnea) Uncontrolled hypertension Home Medications acetaminophen 500 mg tablet 1,000 mg PO DAILY PRN Pain 05/19/18 [History Last Taken 05/19/18] ibuprofen 200 mg tablet 400 - 600 mg PO DAILY PRN Pain 05/19/18 [History Last Taken 05/19/18] zolpidem 10 mg tablet 10 mg PO QHS PRN Sleep 01/18/21 [History Last Taken 08/30/21] handicap placcard #1 ea 03/15/21 [Rx Last Taken Unknown] fenofibrate 160 mg tablet 160 mg PO DAILY #90 tabs 09/18/21 [Rx Last Taken Unknown] albuterol sulfate 90 mcg/actuation aerosol inhaler 2 puff inhalation Q4H PRN shortness of breath or wheezing #8.5 grams 10/03/21 [Rx Last Taken Unknown] rabeprazole 20 mg tablet,delayed release (AcipHex) 20 mg PO DAILY stomach #90 tabs 07/17/22 [Rx Last Taken Unknown] quetiapine 200 mg tablet 200 mg PO .Four times a day sleep #120 tabs 09/01/22 [Rx Last Taken Unknown] aspirin 81 mg tablet,delayed release (Adult Aspirin Regimen) 81 mg PO QDAY #90 tabs 09/16/22 [Rx Last Taken Unknown] carvedilol 25 mg tablet 50 mg PO BID #360 tabs 09/16/22 [Rx Last Taken Unknown] clonidine HCl 0.1 mg tablet 0.1 mg PO BID blood pressure #180 tabs 09/16/22 [Rx Last Taken Unknown] clopidogrel 75 mg tablet 75 mg PO DAILY heart health #90 tabs 09/16/22 [Rx Last Taken Unknown] hydralazine 50 mg tablet 150 mg PO TID #810 tabs 09/16/22 [Rx Last Taken Unknown] nifedipine 90 mg tablet,extended release 24 hr 90 mg PO DAILY BP #90 tabs 09/16/22 [Rx Last Taken Unknown] buprenorphine 20 mcg/hour weekly transdermal patch 10/13/22 [History Last Taken Unknown] citalopram 20 mg tablet mg 10/13/22 [History Last Taken Unknown] fluoxetine 10 mg tablet 10 mg PO DAILY 10/13/22 [History Last Taken Unknown] hydrocodone-acetaminophen 5-325mg 5mg-325mg 1 tab PO BID PRN Pain 10/13/22 [History Last Taken Unknown] isosorbide dinitrate 30 mg tablet 30 mg PO BID blood pressure 10/13/22 [History Last Taken Unknown] levothyroxine 25 mcg tablet mcg 10/13/22 [History Last Taken Unknown] lorazepam 1 mg tablet mg 10/13/22 [History Last Taken Unknown] Allergy/AdvReac Type Severity Reaction Status Date / Time ciprofloxacin [From Cipro] Allergy Rash Verified 10/13/22 19:47 ciprofloxacin HCl Allergy Rash Verified 10/13/22 19:47 [From Cipro] sulfamethoxazole Allergy Rash Verified 10/13/22 19:47 [From Bactrim] tramadol Allergy Itching Verified 10/13/22 19:47 trimethoprim [From Bactrim] Allergy Rash Verified 10/13/22 19:47 Family History Son Marfans syndrome Daughter Marfans syndrome Father Hypertension Grandfather Heart disease Myocardial infarction CVA (cerebral vascular accident) Grandmother Heart disease Surgical History H/O coronary artery bypass surgery (03/08/11) History of hand surgery History of left heart catheterization (12/14/20) History of mitral valve repair (03/08/11) History of open reduction and internal fixation (ORIF) procedure (2016) History of surgical fusion joint History of tonsillectomy Hx of ascending aorta replacement (03/08/11) Social History household members: spouse Smoking Status: Never smoker alcohol intake: current alcohol intake frequency: a few times a month substance use type: does not use Physical Exam Const alert and oriented x3 HEENT normocephalic Eyes no scleral icterus Resp normal respiratory effort Cardio regular rate Extremity no pedal edema Skin no rashes or lesions noted Risk Stratification Risk Stratification Applicable: No Charges/Coding Visit Charges Inpatient E&M: 20670 Init Hosp L2 Objective Data Vital Signs: Vital Signs Temp Pulse Resp BP Pulse Ox O2 Del Method O2 Flow Rate 98.0 F 50 L 14 113/64 94 CPAP 6 10/14/22 15:03 10/14/22 15:03 10/14/22 15:03 10/14/22 15:03 10/14/22 15:03 10/14/22 15:03 10/14/22 15:03 FiO2 21 10/14/22 13:10 Oxygen Flow Rate (L/min) 6 Oxygen Delivery Method CPAP Weight: 261 lb 7.492 oz Body Mass Index (BMI) 26.0 Intake & Output: Intake and Output for Last 24 Hours 10/12/22 10/13/22 10/14/22 23:59 23:59 23:59 Intake Total 305 / 305 Output Total 500 / 500 Balance -195 / -195 Lab / Micro Data Result Diagrams: 10/14/22 02:35 10/14/22 02:35 Labs: Laboratory Results - last 24 hr 10/13/22 20:44: WBC 8.8, RBC 3.09 L, Hgb 8.8 L, Hct 27.6 L, MCV 89.3, MCH 28.5, MCHC 31.9 L, RDW Std Deviation 52.2 H, RDW Coeff of Lalita 16.1 H, Plt Count 230, MPV 10.5, Immature Gran % (Auto) 2.200 H, Neut % (Auto) 76.9 H, Lymph % (Auto) 7.0 L, Cooper % (Auto) 13.5 H, Eos % (Auto) 0.1, Baso % (Auto) 0.3, Absolute Neuts (auto) 6.8, Absolute Lymphs (auto) 0.62 L, Nucleated RBC % 0 10/13/22 20:44: Sodium 140, Potassium 3.2 L, Chloride 106, Carbon Dioxide 26.0, Anion Gap 8, BUN 21 H, Creatinine 1.39 H, Estim Creat Clear Calc 75.46, Est GFR (MDRD) Af Amer 69, Est GFR (MDRD) Non-Af 57 L, BUN/Creatinine Ratio 15.1, Glucose 130 H, Calcium 9.1, Total Bilirubin 1.90 H, AST 69 H, ALT 61, Alkaline Phosphatase 42 L, Troponin I High Sens 159 H*, Total Protein 8.1, Albumin 4.1, Globulin 4.0, Albumin/Globulin Ratio 1.0 10/13/22 20:44: Ammonia 24.0, B-Natriuretic Peptide 1270.3 H 10/13/22 20:44: Lactic Acid 1.3 10/13/22 21:30: Urine Color Yellow, Urine Clarity Clear, Urine pH 6.0, Ur Specific [place] 1.015, Urine Protein 500 H, Urine Glucose (UA) Normal, Urine Ketones 5 H, Urine Occult Blood 150 H, Urine Nitrite Negative, Urine Bilirubin 1 H, Urine Urobilinogen 12 H, Ur Leukocyte Esterase 25 H, Urine RBC 0-5 SEEN, Urine WBC 0-5 SEEN, Ur Squamous Epith Cells 0 SEEN, Urine Bacteria 0 SEEN, Urine Mucus 0 SEEN 10/14/22 00:50: Troponin I High Sens 144 H* 10/14/22 02:35: WBC 9.4, RBC 2.89 L, Hgb 8.3 L, Hct 26.3 L, MCV 91.0, MCH 28.7, MCHC 31.6 L, RDW Std Deviation 53.1 H, RDW Coeff of Lalita 16.1 H, Plt Count 200, MPV 10.4, Immature Gran % (Auto) 1.800 H, Neut % (Auto) 79.0 H, Lymph % (Auto) 5.9 L, [place] % (Auto) 12.8 H, Eos % (Auto) 0.1, Baso % (Auto) 0.4, Absolute Neuts (auto) 7.4, Absolute Lymphs (auto) 0.55 L, Nucleated RBC % 0.3 10/14/22 02:35: Sodium 139, Potassium 3.2 L, Chloride 107, Carbon Dioxide 24.0, Anion Gap 8, BUN 21 H, Creatinine 1.31 H, Estim Creat Clear Calc 97.04, Est GFR (MDRD) Af Amer 73, Est GFR (MDRD) Non-Af 61, BUN/Creatinine Ratio 16.0, Glucose 153 H, Calcium 8.7 10/14/22 02:35: Troponin I High Sens 137 H* 10/14/22 02:35: Magnesium 2.1 Micro: Microbiology 10/14/22 10:35 Urine, Clean Catch Legionella Antigen - Final 10/14/22 10:35 Urine, Clean Catch Streptococcus pneumoniae Antigen (M - Final ABG Data ABG results: ABG 10/13/22 20:41 Specimen Type ART Sample Site R Radial pH 7.47 H Bicarbonate Actual 24.8 Total CO2 26 Base Excess 1 O2 Saturation 96 ABG pCO2 34.4 L ABG pO2 78 Kyler Test Positive O2 Delivery Device Cannula Liter Flow 4.0 Cardiology Labs/Tests 10/13/22 20:41: pH 7.47 H, Bicarbonate Actual 24.8, Base Excess 1, O2 Saturation 96, ABG pCO2 34.4 L, ABG pO2 78, Kyler Test Positive 10/13/22 20:44: WBC 8.8, RBC 3.09 L, Hgb 8.8 L, Hct 27.6 L, MCV 89.3, MCH 28.5, MCHC 31.9 L, Plt Count 230, MPV 10.5, Immature Gran % (Auto) 2.200 H, Neut % (Auto) 76.9 H, Lymph % (Auto) 7.0 L, Cooper % (Auto) 13.5 H, Eos % (Auto) 0.1, Baso % (Auto) 0.3, Absolute Neuts (auto) 6.8, Nucleated RBC % 0 10/13/22 20:44: Sodium 140, Potassium 3.2 L, Chloride 106, Carbon Dioxide 26.0, Anion Gap 8, BUN 21 H, Creatinine 1.39 H, Est GFR (MDRD) Af Amer 69, Est GFR (MDRD) Non-Af 57 L, BUN/Creatinine Ratio 15.1, Glucose 130 H, Calcium 9.1, Total Bilirubin 1.90 H 10/13/22 20:44: B-Natriuretic Peptide 1270.3 H 10/13/22 20:44: Lactic Acid 1.3 10/13/22 21:30: Urine Color Yellow, Urine Clarity Clear, Urine pH 6.0, Ur Specific [place] 1.015, Urine Protein 500 H, Urine Glucose (UA) Normal, Urine Ketones 5 H, Urine Occult Blood 150 H, Urine Nitrite Negative, Urine Bilirubin 1 H, Urine Urobilinogen 12 H, Ur Leukocyte Esterase 25 H, Urine RBC 0-5 SEEN, Urine WBC 0-5 SEEN 10/14/22 02:35: WBC 9.4, RBC 2.89 L, Hgb 8.3 L, Hct 26.3 L, MCV 91.0, MCH 28.7, MCHC 31.6 L, Plt Count 200, MPV 10.4, Immature Gran % (Auto) 1.800 H, Neut % (Auto) 79.0 H, Lymph % (Auto) 5.9 L, Cooper % (Auto) 12.8 H, Eos % (Auto) 0.1, Baso % (Auto) 0.4, Absolute Neuts (auto) 7.4, Nucleated RBC % 0.3 10/14/22 02:35: Sodium 139, Potassium 3.2 L, Chloride 107, Carbon Dioxide 24.0, Anion Gap 8, BUN 21 H, Creatinine 1.31 H, Est GFR (MDRD) Af Amer 73, Est GFR (MDRD) Non-Af 61, BUN/Creatinine Ratio 16.0, Glucose 153 H, Calcium 8.7 10/14/22 02:35: Magnesium 2.1 Rhythm: EKG: ECHO: Stress Test: Cardiac Cath: PCI: CT Surgery: Holter monitor: EPS: PPM: CXR: Chest CT Scan: Radiography Diagnostic Testing: Radiology Impression Chest X-Ray 10/13/22 20:50 IMPRESSION: Suggestion of mild asymmetric diffuse pulmonary edema. Cardiomegaly. Electronically Signed: Fredy Salas MD at 21:21 EDT , Chest CTA 10/13/22 21:56 IMPRESSION: 1. Multilobar pulmonary airspace disease/infiltrate within right lung, with trace right pleural effusion. 2. Stable postop changes and aneurysmal dilatation of thoracic aorta with small chronic intramural ulcer at level of diaphragmatic hiatus. No acute aortic dissection, rupture or periaortic hematoma. 3. Stable cardiomegaly. 4. Stable hepatosplenomegaly with hepatic and pancreatic steatosis. Electronically Signed: Isaak Byrd MD at 23:54 EDT , Echocardiogram 10/14/22 11:24 Interpretation Summary The estimated ejection fraction is 70 %. Diastolic function is indeterminate. Trivial mitral valve insufficiency. The left atrium is mildly enlarged. The right atrium is mildly enlarged. Ordering Physician: Miko Ramirez Referring Physician: DHAVAL BRADEN Performed By: Ayana Zamora RCS
[2022-10-14 17:50] LABS: Bedside Glucose 121 mg/dL (74-106)
[2022-10-15] VITALS (7 sets, daily range): BP systolic 126–147; BP diastolic 64–74; PULSE 58–89; RESP 14–19; TEMP 36.6–37.3; O2SAT 93–97
[2022-10-15] MEDS: hydrALAZINE 50 MG Tablet 150 MG PO ×2 (05:34→20:31)
[2022-10-15 06:46] LABS: Absolute Lymphocyte Count 0.74 X10^3/uL (0.83-4.51); Absolute Neutrophil Count 4.4 X10^3/uL (2.0-7.7); Basophil# 0.04 X10^3/uL; Basophil% 0.6 % (0-1); Eosinophil# 0.22 X10^3/uL; Eosinophils% 3.5 % (0-5); Hemoglobin 8.1 g/dL (13.0-16.5); Lymphocyte # 0.74 X10^3/ul (0.83-4.51); Lymphocyte % 11.7 % (19-41); Mean Corp Hgb Conc 32.4 g/dL (32-36); Mean Corpuscular Hgb 28.8 pg (27.0-32.0); Mean Platelet Vol. 9.6 fl (6.2-12.0); Monocyte# 0.77 X10^3/uL; Monocyte% 12.2 % (0-10); NRBC Flagged by Analyzer 0 % (0-5); Neutrophil # 4.42 X10^3/uL (2.7-7.7); Neutrophil % 70.3 % (47-70); Platelet Count 227 K/mm3 (150-450); RBC Distribution Width CV 16.3 % (11.6-14.6); RBC Distribution Width SD 52.6 fl (35.1-43.9); Red Blood Count 2.81 M/mm3 (4.6-6.2); White Blood Count 6.3 K/mm3 (4.4-11.0)
[2022-10-15 07:31] LABS: AST(SGOT) 41 U/L (15-37); Alanine Aminotransfer ALT/SGPT 47 U/L (16-61); Albumin, Serum 3.5 g/dL (3.2-5.0); Alkaline Phosphatase 40 U/L (45-117); Anion Gap 7 (5-15); BUN 24 mg/dL (7-18); BUN/Creat Ratio 19.5 RATIO (10-20); Chloride 104 mmol/L (98-107); Creatinine, Serum 1.23 mg/dL (0.70-1.30); EST Glomerular Filtration Rate 65 mL/min (>60); Est Glom Filt Rate - Afr Amer 79 mL/min (>60); Estimated Creatinine Clearance 103.35 ml/min; Globulin 3.5 g/dL (2.2-4.2); Glucose 106 mg/dL (74-106); Sodium Level 136 mmol/L (136-145)
[2022-10-15] MEDS: HYDROcodone Bitartrate/Apap 5/325 Tablet PO ×2 (08:42→20:32)
[2022-10-15] MEDS: Acetaminophen 500 MG Tablet 1000 MG PO (08:42)
[2022-10-15] MEDS: Carvedilol 25 MG Tablet 50 MG PO ×2 (08:43→17:41)
[2022-10-15] MEDS: cloNIDine HCl 0.1 MG Tablet PO ×2 (08:44→20:33)
[2022-10-15] MEDS: Enoxaparin 40 MG/0.4 ML Syringe SC (08:44)
[2022-10-15] MEDS: Aspirin E.C. 81 MG Tablet PO (08:44)
[2022-10-15] MEDS: Isosorbide DN 30 MG Tablet PO ×2 (08:44→20:31)
--- NOTE | 2022-10-15 08:46 | PCM.PN.HOSP ---
Reason for Visit Reason for Visit: Diagnoses Hypokalemia (10/14/22) Essential (primary) hypertension (10/14/22) Pneumonia due to Streptococcus pneumoniae (10/14/22) Pneumonia, unspecified organism (10/14/22) Marfan's syndrome, unspecified (10/14/22) Shortness of breath (10/14/22) Other specified abnormalities of plasma proteins (10/14/22) Other specified abnormal findings of blood chemistry (10/14/22) Personal history of other diseases of the circulatory system (10/14/22) Presence of aortocoronary bypass graft (10/14/22) Presence of other vascular implants and grafts (10/14/22) Other specified postprocedural states (10/14/22) Subjective Subjective Complains of pain. States he hasn't slept in days. Acknowledges that he has not showed in 8 weeks because he did not feel the need. Feels that he is on borrowed time since his aortic dissections. Denies suicidal ideation. Does not recall urinating in different spots in the house. Objective Data Objective Data Vital Signs: Vital Signs Temp Pulse Resp BP Pulse Ox O2 Del Method O2 Flow Rate 37.3 C H 77 16 147/74 H 96 Nasal Cannula 3 10/15/22 08:39 10/15/22 08:39 10/15/22 08:39 10/15/22 08:39 10/15/22 08:39 10/15/22 08:39 10/15/22 08:39 FiO2 21 10/14/22 13:10 Oxygen Flow Rate (L/min) 3 Oxygen Delivery Method Nasal Cannula Weight: 118.6 kg Body Mass Index (BMI) 26.0 Intake & Output: Intake and Output for Last 24 Hours 10/13/22 10/14/22 10/15/22 23:59 23:59 23:59 Intake Total 355 / 355 255 / 255 Output Total 1400 / 1400 500 / 500 Balance -1045 / -1045 -245 / -245 Lab / Micro Data Result Diagrams: 10/15/22 06:38 10/15/22 06:38 Labs: Laboratory Results - last 24 hr 10/14/22 02:35: Magnesium 2.1 10/14/22 17:31: POC Glucose 121 H 10/15/22 06:38: WBC 6.3, RBC 2.81 L, Hgb 8.1 L, Hct 25.0 L, MCV 89.0, MCH 28.8, MCHC 32.4, RDW Std Deviation 52.6 H, RDW Coeff of Lalita 16.3 H, Plt Count 227, MPV 9.6, Immature Gran % (Auto) 1.700 H, Neut % (Auto) 70.3 H, Lymph % (Auto) 11.7 L, [place] % (Auto) 12.2 H, Eos % (Auto) 3.5, Baso % (Auto) 0.6, Absolute Neuts (auto) 4.4, Absolute Lymphs (auto) 0.74 L, Nucleated RBC % 0 10/15/22 06:38: Sodium 136, Potassium 3.0 L, Chloride 104, Carbon Dioxide 25.0, Anion Gap 7, BUN 24 H, Creatinine 1.23, Estim Creat Clear Calc 103.35, Est GFR (MDRD) Af Amer 79, Est GFR (MDRD) Non-Af 65, BUN/Creatinine Ratio 19.5, Glucose 106, Calcium 8.0 L, Total Bilirubin 1.40 H, AST 41 H, ALT 47, Alkaline Phosphatase 40 L, Total Protein 7.0, Albumin 3.5, Globulin 3.5, Albumin/Globulin Ratio 1.0 Micro: Microbiology 10/14/22 10:35 Urine, Clean Catch Legionella Antigen - Final 10/14/22 10:35 Urine, Clean Catch Streptococcus pneumoniae Antigen (M - Final Radiography Diagnostic Testing: Radiology Impression Echocardiogram 10/14/22 11:24 Interpretation Summary The estimated ejection fraction is 70 %. Diastolic function is indeterminate. Trivial mitral valve insufficiency. The left atrium is mildly enlarged. The right atrium is mildly enlarged. Ordering Physician: Miko Ramirez Referring Physician: DHAVAL BRADEN Performed By: Ayana Zamora RCS Physical Exam Const alert and no apparent distress HEENT head/scalp atraumatic and moist oral mucous membranes Resp normal respiratory effort and no retractions Cardio regular rate, regular rhythm, S1 normal heart sound and S2 normal heart sound GI normal to inspection, nondistended, normoactive bowel sounds, soft to palpation, non-tender and non-distended Extremity normal to inspection Neuro moves all extremities Sensorium / Orientation: awake and alert Assessment & Plan Assessment/Plan (1) Pneumonia: QUALIFIERS: Laterality: right Lung location: unspecified part of lung Pneumonia type: due to Pneumococcus Qualified Code(s): J13 - Pneumonia due to Streptococcus pneumoniae PLAN: Diffuse right-sided pneumonia Abx w CTX and azithromycin PEP therapy Check SCx, BCx, Strep and legionella antigens negative (2) Elevated troponin: PLAN: trending down I suspect type II NSTEMI from pneumonia Cards consult appreciated. No additional work up at this time. (3) Uncontrolled hypertension: PLAN: improved Continue carvedilol 50 BID, isosorbide 30 BID, nifedipine 90 daily, hydralazine 150 TID (4) Hypokalemia: PLAN: ongoing, continue to replace Magnesium 2.1 (5) Encephalopathy acute: PLAN: Resolved Bizarre behaviors at home where he was urinating in different areas of the house. Suspect due to pneumonia and Butrans patch. No additional work up at this time (6) Depression: PLAN: Had not showed in about 8 weeks. Pt to follow with his psychiatrist He denies suicidal ideation (7) Anemia: PLAN: down from August 2021 check iron, TIBC, ferritin, B12, folate, TSH PLAN: Plan Chronic conditions: marfan's syndrome h/o aortic dissection s/p replair Chronic pain: Continue with Butrans patch which is currently in place. Follow-up with Dr. Alegre VTE prophylaxis: LMWH Charges/Coding Visit Charges Inpatient E&M: 68017 Subs Hosp L2
[2022-10-15] MEDS: NIFEdipine 90 MG Tablet PO (08:48)
[2022-10-15] MEDS: Pantoprazole Sodium 20 MG Tablet PO (08:48)
[2022-10-15] MEDS: Clopidogrel Bisulfate 75 MG Tablet PO (08:48)
[2022-10-15] MEDS: Fenofibrate 145 MG Tablet PO (08:50)
[2022-10-15] MEDS: QUEtiapine 100 MG Tablet 200 MG PO ×4 (08:50→20:32)
[2022-10-15] MEDS: FLUoxetine 10 MG Capsule PO (08:50)
--- NOTE | 2022-10-15 09:00 | PCM.PN.CARD ---
Subjective Subjective The patient was seen and evaluated. Appears to be stable. Objective Data Vital Signs: Vital Signs Temp Pulse Resp BP Pulse Ox O2 Del Method O2 Flow Rate 99.2 F H 77 16 147/74 H 96 Nasal Cannula 3 10/15/22 08:39 10/15/22 08:39 10/15/22 08:39 10/15/22 08:39 10/15/22 08:39 10/15/22 08:39 10/15/22 08:39 FiO2 21 10/14/22 13:10 Oxygen Flow Rate (L/min) 3 Oxygen Delivery Method Nasal Cannula Weight: 261 lb 7.492 oz Body Mass Index (BMI) 26.0 Intake & Output: Intake and Output for Last 24 Hours 10/13/22 10/14/22 10/15/22 23:59 23:59 23:59 Intake Total 355 / 355 255 / 255 Output Total 1400 / 1400 500 / 500 Balance -1045 / -1045 -245 / -245 Lab / Micro Data Result Diagrams: 10/15/22 06:38 10/15/22 06:38 Labs: Laboratory Results - last 24 hr 10/14/22 17:31: POC Glucose 121 H 10/15/22 06:38: WBC 6.3, RBC 2.81 L, Hgb 8.1 L, Hct 25.0 L, MCV 89.0, MCH 28.8, MCHC 32.4, RDW Std Deviation 52.6 H, RDW Coeff of Lalita 16.3 H, Plt Count 227, MPV 9.6, Immature Gran % (Auto) 1.700 H, Neut % (Auto) 70.3 H, Lymph % (Auto) 11.7 L, [place] % (Auto) 12.2 H, Eos % (Auto) 3.5, Baso % (Auto) 0.6, Absolute Neuts (auto) 4.4, Absolute Lymphs (auto) 0.74 L, Nucleated RBC % 0 10/15/22 06:38: Sodium 136, Potassium 3.0 L, Chloride 104, Carbon Dioxide 25.0, Anion Gap 7, BUN 24 H, Creatinine 1.23, Estim Creat Clear Calc 103.35, Est GFR (MDRD) Af Amer 79, Est GFR (MDRD) Non-Af 65, BUN/Creatinine Ratio 19.5, Glucose 106, Calcium 8.0 L, Total Bilirubin 1.40 H, AST 41 H, ALT 47, Alkaline Phosphatase 40 L, Total Protein 7.0, Albumin 3.5, Globulin 3.5, Albumin/Globulin Ratio 1.0 Micro: Microbiology 10/14/22 10:35 Urine, Clean Catch Legionella Antigen - Final 10/14/22 10:35 Urine, Clean Catch Streptococcus pneumoniae Antigen (M - Final Cardiology Labs/Tests 10/15/22 06:38: WBC 6.3, RBC 2.81 L, Hgb 8.1 L, Hct 25.0 L, MCV 89.0, MCH 28.8, MCHC 32.4, Plt Count 227, MPV 9.6, Immature Gran % (Auto) 1.700 H, Neut % (Auto) 70.3 H, Lymph % (Auto) 11.7 L, [place] % (Auto) 12.2 H, Eos % (Auto) 3.5, Baso % (Auto) 0.6, Absolute Neuts (auto) 4.4, Nucleated RBC % 0 10/15/22 06:38: Sodium 136, Potassium 3.0 L, Chloride 104, Carbon Dioxide 25.0, Anion Gap 7, BUN 24 H, Creatinine 1.23, Est GFR (MDRD) Af Amer 79, Est GFR (MDRD) Non-Af 65, BUN/Creatinine Ratio 19.5, Glucose 106, Calcium 8.0 L, Total Bilirubin 1.40 H Rhythm: EKG: ECHO: Stress Test: Cardiac Cath: PCI: CT Surgery: Holter monitor: EPS: PPM: CXR: Chest CT Scan: Radiography Diagnostic Testing: Radiology Impression Echocardiogram 10/14/22 11:24 Interpretation Summary The estimated ejection fraction is 70 %. Diastolic function is indeterminate. Trivial mitral valve insufficiency. The left atrium is mildly enlarged. The right atrium is mildly enlarged. Ordering Physician: Miko Ramirez Referring Physician: DHAVAL BRADEN Performed By: Ayana Zamora RCS Physical Exam Const alert and oriented x3 HEENT normocephalic Eyes no scleral icterus Resp normal respiratory effort Cardio regular rate Extremity no pedal edema Skin no rashes or lesions noted Assessment & Plan Assessment/Plan (1) Elevated brain natriuretic peptide (BNP) level: PLAN: The patient appears to have diastolic dysfunction. At this time I will recommend that we continue managing him with medical therapy. No reason for intervention at this time his echocardiogram also demonstrated preserved ejection fraction with mild biatrial enlargement. (2) Elevated troponin: PLAN: Patient's recent angiogram was reviewed. Troponin has been elevated in the indeterminate range. This does not appear to be related to his coronary artery disease. Since his CABG patient has had 2 coronary angiogram's which did not reveal any significant CAD that needed intervention. We will continue to monitor this without any further intervention at this time. (3) Hx of ascending aorta replacement: PLAN: This appears to be stable and we will keep his blood pressure under good control. (4) H/O coronary artery bypass surgery: PLAN: No evidence of plaque rupture or ischemia noted. His last angiogram was reviewed. (5) History of mitral valve repair: PLAN: He has a history of mitral valve repair. This appears to be stable based on the last echocardiogram. (6) Marfan syndrome: PLAN: Stable with no progression.
--- NOTE | 2022-10-15 10:40 | CASEMGMT ---
RAFIQ SPENCE Face to Face with for initial transition planning/care coordination assessment as patient has been confused. RN JORDY introduced self and role at [facility]. , Annel, willing to participate in assessment and is able to answer all questions appropriately. Care providers, pharmacy, and demographics verified. Annel wishes for patient to discharge to rehab unit or SNF for additional therapy. states she has no further needs or concerns at this time. CM to follow for discharge planning needs that may arise. PCP: [facility] Specialists: Orville, psychiatry last seen on Thursday; Rona, well testing operator; Sis, pain Preferred Pharmacy: [facility] retail Insurance: [employer] Prescription Benefit: yes Living Will/HPOA: none LNOK: , Living Arrangements: Patient lives with and children in a bi-level home with 6 steps between levels. Patient is independent normally but has not showered in 8 weeks per nor brushed his teeth. states that patient becomes very short of breath when performing self care including shaving. concerned for increase in depression, hospitalist and SW notified. Transportation: DME/HHC: Patient has shower chair, raised toilet, grab bars, and bipap at home. No previous HHC or SNF. Disposition Plan: TBD, anticipate HHC vs SNF, will monitor progress with therapy. Ami SIMPSON, RN, CM
[2022-10-15] MEDS: Potassium Chloride Oral Tablet 20 MEQ 40 MEQ PO ×2 (11:26→17:41)
[2022-10-15 14:45] LABS: Vitamin B12 449 pg/mL (211-911)
[2022-10-15 14:51] LABS: Ferritin 180 ng/mL (26-388); Iron 34 ug/dL (65-175); Iron Binding Capacity,Total 302 ug/dL (250-450); PERCENT IRON SATURATION 11.3 % (15.0-55.0); Thyroid Stim Hormone (TSH) 6.33 uIU/mL (0.358-3.74)
--- NOTE | 2022-10-15 15:53 | CHAPLAIN ---
Type of Pastoral Visit _x__ Initial Visit ___ Follow-up Visit ___ On-call Visit ___ General Patient Visit ___ Spiritual Assessment ___ Family Conference ___ Bereavement ___ Rapid Response ___ Code Blue ___ Other (describe below) Pastoral Care Referral From _x__ Patient ___ Family ___ Nurse ___ Physician ___ Stockroom Helper ___ Quality Improvement Analyst ___ Other (describe below) Sacrament/Intervention _x__ Active listening ___ Anointing ___ Latter Day ___ Bereavement ___ Communion _x__ Vale exploration ___ _x__ Life review _x__ Prayer ___ Reconciliation ___ Sacrament of Sick _x__ Supportive presence ___ Wedding ___ Other (describe below) Pastoral Comments patient was on bipap for resting purposes but immediately took that off so he could talk to this sail repair person; pt gave explanation of illness which is penitentiary; pt spoke freely of his feelings and often discouragement of late; pt has had significant decline physically; pt source of strength is his my rock and encouraged by children and a first grandchild just born; otherwise pt was unable to name many other sources of hope and peace; pt repeatedly said I just don't know; spiritual aspect approached and again pt was honest about his lack of vale although admitted that he could benefit from the same; pt welcomed a spoken prayer on his behalf; pt expressed thank you for listening, I really appreciated it; future visits would be beneficial for emotional support
[2022-10-15] MEDS: Ceftriaxone 1 GM/50 ML BAG IV (20:31)
[2022-10-15] MEDS: Zolpidem Tartrate 5 MG Tablet PO (20:32)
[2022-10-16] VITALS (9 sets, daily range): BP systolic 108–134; BP diastolic 48–68; PULSE 56–75; RESP 16–18; TEMP 36.5–37.1; O2SAT 94–99
[2022-10-16 06:27] LABS: Absolute Lymphocyte Count 0.51 X10^3/uL (0.83-4.51); Absolute Neutrophil Count 3.1 X10^3/uL (2.0-7.7); Basophil# 0.03 X10^3/uL; Basophil% 0.6 % (0-1); Eosinophil# 0.26 X10^3/uL; Eosinophils% 5.5 % (0-5); Hemoglobin 7.9 g/dL (13.0-16.5); Lymphocyte # 0.51 X10^3/ul (0.83-4.51); Lymphocyte % 10.8 % (19-41); Mean Corp Hgb Conc 31.6 g/dL (32-36); Mean Corpuscular Hgb 28.5 pg (27.0-32.0); Mean Corpuscular Volume 90.3 fL (80-94); Mean Platelet Vol. 9.6 fl (6.2-12.0); Monocyte# 0.74 X10^3/uL; Monocyte% 15.6 % (0-10); NRBC Flagged by Analyzer 0 % (0-5); Neutrophil # 3.12 X10^3/uL (2.7-7.7); POSITIVE DIFFERENTIAL YES; Platelet Count 220 K/mm3 (150-450); RBC Distribution Width CV 16.5 % (11.6-14.6); RBC Distribution Width SD 53.1 fl (35.1-43.9); Red Blood Count 2.77 M/mm3 (4.6-6.2); White Blood Count 4.7 K/mm3 (4.4-11.0)
[2022-10-16 06:35] LABS: Differential Indicated SCAN CRITERIA MET
[2022-10-16 06:43] LABS: Anisocytosis 1+
[2022-10-16 06:49] LABS: Anion Gap 7 (5-15); BUN 23 mg/dL (7-18); BUN/Creat Ratio 18.3 RATIO (10-20); Calcium,Total 8.2 mg/dL (8.5-10.1); Chloride 107 mmol/L (98-107); Creatinine, Serum 1.26 mg/dL (0.70-1.30); EST Glomerular Filtration Rate 63 mL/min (>60); Est Glom Filt Rate - Afr Amer 77 mL/min (>60); Estimated Creatinine Clearance 100.89 ml/min; Glucose 100 mg/dL (74-106); Potassium 3.7 mmol/L (3.5-5.1); Sodium Level 137 mmol/L (136-145)
--- NOTE | 2022-10-16 08:29 | PCM.PN.HOSP ---
Reason for Visit Reason for Visit: Diagnoses Anemia, unspecified (10/14/22) Hypokalemia (10/14/22) Depression, unspecified (10/14/22) Encephalopathy, unspecified (10/14/22) Essential (primary) hypertension (10/14/22) Pneumonia due to Streptococcus pneumoniae (10/14/22) Pneumonia, unspecified organism (10/14/22) Marfan's syndrome, unspecified (10/14/22) Shortness of breath (10/14/22) Other specified abnormalities of plasma proteins (10/14/22) Other specified abnormal findings of blood chemistry (10/14/22) Personal history of other diseases of the circulatory system (10/14/22) Presence of aortocoronary bypass graft (10/14/22) Presence of other vascular implants and grafts (10/14/22) Other specified postprocedural states (10/14/22) Subjective Subjective says his pain is better after being put on morphine yesterday. slepts well. Objective Data Objective Data Vital Signs: Vital Signs Temp Pulse Resp BP Pulse Ox O2 Del Method O2 Flow Rate 36.7 C 56 L 18 113/52 L 99 Bi-pap 5 10/16/22 02:39 10/16/22 02:39 10/16/22 02:39 10/16/22 05:57 10/16/22 02:39 10/16/22 02:39 10/16/22 02:39 FiO2 5 10/15/22 21:40 Oxygen Flow Rate (L/min) 5 Oxygen Delivery Method Bi-pap Weight: 118.6 kg Body Mass Index (BMI) 26.0 Intake & Output: Intake and Output for Last 24 Hours 10/14/22 10/15/22 10/16/22 23:59 23:59 23:59 Intake Total 355 / 355 1205 / 1460 255 / 255 Output Total 1400 / 1400 2200 / 2400 500 / 500 Balance -1045 / -1045 -995 / -940 -245 / -245 Lab / Micro Data Result Diagrams: 10/16/22 06:18 10/16/22 06:18 Labs: Laboratory Results - last 24 hr 10/15/22 06:38: Iron 34 L, TIBC 302, Iron Saturation 11.3 L, Ferritin 180, Folate 3.40, TSH 6.33 H 10/15/22 06:38: Vitamin B12 449 10/16/22 06:18: WBC 4.7, RBC 2.77 L, Hgb 7.9 L, Hct 25.0 L, MCV 90.3, MCH 28.5, MCHC 31.6 L, RDW Std Deviation 53.1 H, RDW Coeff of Lalita 16.5 H, Plt Count 220, MPV 9.6, Immature Gran % (Auto) 1.500 H, Neut % (Auto) 66.0, Lymph % (Auto) 10.8 L, [place] % (Auto) 15.6 H, Eos % (Auto) 5.5 H, Baso % (Auto) 0.6, Absolute Neuts (auto) 3.1, Absolute Lymphs (auto) 0.51 L, Nucleated RBC % 0, Anisocytosis 1+ 10/16/22 06:18: Sodium 137, Potassium 3.7, Chloride 107, Carbon Dioxide 23.0, Anion Gap 7, BUN 23 H, Creatinine 1.26, Estim Creat Clear Calc 100.89, Est GFR (MDRD) Af Amer 77, Est GFR (MDRD) Non-Af 63, BUN/Creatinine Ratio 18.3, Glucose 100, Calcium 8.2 L Micro: Microbiology 10/14/22 10:35 Urine, Clean Catch Legionella Antigen - Final 10/14/22 10:35 Urine, Clean Catch Streptococcus pneumoniae Antigen (M - Final Physical Exam Const alert and no apparent distress HEENT head/scalp atraumatic and moist oral mucous membranes Resp normal respiratory effort, no retractions, no use of accessory muscles and clear to auscultation bilaterally Cardio regular rate, regular rhythm, S1 normal heart sound and S2 normal heart sound GI normal to inspection, nondistended, normoactive bowel sounds, soft to palpation, non-tender and non-distended Extremity normal to inspection Assessment & Plan Assessment/Plan (1) Pneumonia: QUALIFIERS: Laterality: right Lung location: unspecified part of lung Pneumonia type: due to Pneumococcus Qualified Code(s): J13 - Pneumonia due to Streptococcus pneumoniae PLAN: Diffuse right-sided pneumonia Abx w CTX and azithromycin PEP therapy Check SCx, BCx, Strep and legionella antigens negative (2) Elevated troponin: PLAN: trending down I suspect type II NSTEMI from pneumonia Cards consult appreciated. No additional work up at this time. (3) Uncontrolled hypertension: PLAN: improved Continue carvedilol 50 BID, isosorbide 30 BID, nifedipine 90 daily, hydralazine 150 TID (4) Hypokalemia: PLAN: ongoing, continue to replace Magnesium 2.1 (5) Encephalopathy acute: PLAN: Resolved Bizarre behaviors at home where he was urinating in different areas of the house. Suspect due to pneumonia and Butrans patch. No additional work up at this time (6) Depression: PLAN: Had not showed in about 8 weeks. Pt to follow with his psychiatrist He denies suicidal ideation (7) Anemia: PLAN: down from August 2021 Iron 34, TIBC 302, ferritin 180, B12 449, folate 3.4, TSH 6.33 Check FT4, T3 Start Iron PLAN: Plan Chronic conditions: marfan's syndrome h/o aortic dissection s/p replair Chronic pain: Continue with Butrans patch which is currently in place. Follow-up with Dr. Alegre. Started on Morphine. Will PIPO schofield. VTE prophylaxis: LMWH Disposition: medically stable for discharge. Awaiting on placement Charges/Coding Visit Charges Inpatient E&M: 95862 Subs Hosp L2
[2022-10-16 09:30] LABS: Free T3 1.7 pg/mL (2.18-3.98); T4 Free Direct 0.85 ng/dL (0.76-1.46)
[2022-10-16] MEDS: QUEtiapine 100 MG Tablet 200 MG PO ×4 (10:11→23:09)
[2022-10-16] MEDS: Potassium Chloride Oral Tablet 20 MEQ 40 MEQ PO ×2 (10:11→17:16)
[2022-10-16] MEDS: Ferrous Sulfate 325 MG Tablet PO (10:11)
[2022-10-16] MEDS: cloNIDine HCl 0.1 MG Tablet PO ×2 (10:11→23:06)
[2022-10-16] MEDS: Carvedilol 25 MG Tablet 50 MG PO ×2 (10:11→17:16)
[2022-10-16] MEDS: Isosorbide DN 30 MG Tablet PO ×2 (10:11→23:06)
[2022-10-16] MEDS: FLUoxetine 10 MG Capsule PO (10:12)
[2022-10-16] MEDS: Pantoprazole Sodium 20 MG Tablet PO (10:12)
[2022-10-16] MEDS: Clopidogrel Bisulfate 75 MG Tablet PO (10:12)
[2022-10-16] MEDS: Aspirin E.C. 81 MG Tablet PO (10:12)
[2022-10-16] MEDS: Fenofibrate 145 MG Tablet PO (10:12)
[2022-10-16] MEDS: NIFEdipine 90 MG Tablet PO (10:12)
[2022-10-16] MEDS: Enoxaparin 40 MG/0.4 ML Syringe SC (10:16)
[2022-10-16] MEDS: HYDROcodone Bitartrate/Apap 5/325 Tablet PO (11:58)
--- NOTE | 2022-10-16 14:01 | CASEMGMT ---
SW was informed by RN JORDY and physician that patient is stating he is depressed. SW met with patient. Introduced self and role at [facility]. Patient was willing to talk with SW and was fairly open with SW. Patient shared some of the things he and his family have been going through. SW listened and provided emotional support. SW spoke with patient about going to counseling. Patient said he isn't the best at opening up with people. SW encouraged patient to try counseling. Patient was agreeable to SW giving him a list of counselors, but not making an appointment as the family only has one vehicle. Patient was appreciative of all of the caring and helpful staff at [facility]. SW let patient know he is always welcome to ask for SW if he needs to talk. SW provided patient a list of counselors that take his insurance. Smita DE LA TORRE
[2022-10-16] MEDS: hydrALAZINE 50 MG Tablet 150 MG PO (23:05)
[2022-10-16] MEDS: Acetaminophen 500 MG Tablet 1000 MG PO (23:10)
[2022-10-16] MEDS: Zolpidem Tartrate 5 MG Tablet PO (23:10)
[2022-10-17] VITALS (10 sets, daily range): BP systolic 98–121; BP diastolic 49–62; PULSE 51–60; RESP 16–18; TEMP 36.5–36.7; O2SAT 92–99
[2022-10-17] MEDS: Ceftriaxone 1 GM/50 ML BAG IV (00:38)
--- NOTE | 2022-10-17 05:27 | CPS ---
Patient sleeping at this time
--- NOTE | 2022-10-17 05:28 | CPS ---
Patient sleeping at this time
--- NOTE | 2022-10-17 09:01 | PCM.PN.HOSP ---
Reason for Visit Reason for Visit: Diagnoses Anemia, unspecified (10/14/22) Hypokalemia (10/14/22) Depression, unspecified (10/14/22) Encephalopathy, unspecified (10/14/22) Essential (primary) hypertension (10/14/22) Pneumonia due to Streptococcus pneumoniae (10/14/22) Pneumonia, unspecified organism (10/14/22) Marfan's syndrome, unspecified (10/14/22) Shortness of breath (10/14/22) Other specified abnormalities of plasma proteins (10/14/22) Other specified abnormal findings of blood chemistry (10/14/22) Personal history of other diseases of the circulatory system (10/14/22) Presence of aortocoronary bypass graft (10/14/22) Presence of other vascular implants and grafts (10/14/22) Other specified postprocedural states (10/14/22) Subjective Subjective Still with chronic pain. No shortness of breath. Objective Data Objective Data Vital Signs: Vital Signs Temp Pulse Resp BP Pulse Ox O2 Del Method O2 Flow Rate 36.7 C 51 L 16 98/49 L 99 Nasal Cannula 3 10/17/22 05:00 10/17/22 05:07 10/17/22 05:00 10/17/22 05:07 10/17/22 05:00 10/17/22 08:46 10/17/22 08:46 FiO2 5 10/15/22 21:40 Oxygen Flow Rate (L/min) 3 Oxygen Delivery Method Nasal Cannula Weight: 118.6 kg Body Mass Index (BMI) 26.0 Intake & Output: Intake and Output for Last 24 Hours 10/15/22 10/16/22 10/17/22 23:59 23:59 23:59 Intake Total 1205 / 1460 1205.5 / 1205.5 305 / 305 Output Total 2200 / 2400 2500 / 2500 Balance -995 / -940 -1294.5 / -1294.5 305 / 305 Lab / Micro Data Result Diagrams: 10/16/22 06:18 10/16/22 06:18 Labs: Laboratory Results - last 24 hr 10/16/22 06:18: Free T4 0.85, Free T3 pg/dL 1.7 L Micro: Microbiology 10/14/22 09:04 Blood Culture (Wb) - Right Wrist Blood Culture - Preliminary No growth in 48 hours. 10/14/22 09:00 Blood Culture (Wb) - Anticubital Right Blood Culture - Preliminary No growth in 48 hours. 10/14/22 10:35 Urine, Clean Catch Legionella Antigen - Final 10/14/22 10:35 Urine, Clean Catch Streptococcus pneumoniae Antigen (M - Final Physical Exam Const alert and no apparent distress Resp normal respiratory effort, no retractions, no use of accessory muscles and clear to auscultation bilaterally Cardio regular rate GI normal to inspection, nondistended, normoactive bowel sounds, soft to palpation, non-tender and non-distended Extremity normal to inspection Assessment & Plan Assessment/Plan (1) Pneumonia: QUALIFIERS: Laterality: right Lung location: unspecified part of lung Pneumonia type: due to Pneumococcus Qualified Code(s): J13 - Pneumonia due to Streptococcus pneumoniae PLAN: Diffuse right-sided pneumonia Abx w CTX and azithromycin PEP therapy Check SCx, BCx, Strep and legionella antigens negative Will discharge with Augmentin. (2) Elevated troponin: PLAN: trending down I suspect type II NSTEMI from pneumonia Cards consult appreciated. No additional work up at this time. (3) Uncontrolled hypertension: PLAN: improved Continue carvedilol 50 BID, isosorbide 30 BID, nifedipine 90 daily, hydralazine 150 TID (4) Hypokalemia: PLAN: ongoing, continue to replace Magnesium 2.1 (5) Encephalopathy acute: PLAN: Resolved Bizarre behaviors at home where he was urinating in different areas of the house. Suspect due to pneumonia and Butrans patch. No additional work up at this time (6) Depression: PLAN: Had not showed in about 8 weeks. Pt to follow with his psychiatrist He denies suicidal ideation (7) Anemia: PLAN: down from August 2021 Iron 34, TIBC 302, ferritin 180, B12 449, folate 3.4, TSH 6.33 Check FT4, T3 Start Iron PLAN: Plan Chronic conditions: marfan's syndrome h/o aortic dissection s/p replair Chronic pain: Continue with Butrans patch which is currently in place. Continue with his [place]. Follow-up with Dr. Alegre. Patient had been started on morphine. I discussed with the patient that he states he is already established with pain management and he has no new pain issues, I will not prescribe this upon discharge. He will need to follow-up with Dr. Alegre. VTE prophylaxis: LMWH Disposition: To home
[2022-10-17] MEDS: Fenofibrate 145 MG Tablet PO (10:31)
[2022-10-17] MEDS: QUEtiapine 100 MG Tablet 200 MG PO (10:31)
[2022-10-17] MEDS: FLUoxetine 10 MG Capsule PO (10:31)
[2022-10-17] MEDS: Carvedilol 25 MG Tablet 50 MG PO (10:32)
[2022-10-17] MEDS: cloNIDine HCl 0.1 MG Tablet PO (10:32)
[2022-10-17] MEDS: NIFEdipine 90 MG Tablet PO (10:32)
[2022-10-17] MEDS: Clopidogrel Bisulfate 75 MG Tablet PO (10:32)
[2022-10-17] MEDS: Isosorbide DN 30 MG Tablet PO (10:33)
[2022-10-17] MEDS: Ferrous Sulfate 325 MG Tablet PO (10:33)
[2022-10-17] MEDS: Pantoprazole Sodium 20 MG Tablet PO (10:33)
[2022-10-17] MEDS: Potassium Chloride Oral Tablet 20 MEQ 40 MEQ PO (10:33)
[2022-10-17] MEDS: Aspirin E.C. 81 MG Tablet PO (10:33)
[2022-10-17] MEDS: Enoxaparin 40 MG/0.4 ML Syringe SC (10:33)
--- NOTE | 2022-10-17 12:15 | CASEMGMT ---
RN CM received call from to discuss needs at discharge. RN CM reviewed progress with therapy and recommendation for HHC at discharge. agreeable to HHC and prefers [facility]. RN CM called and left referral for HHC. Patient will need walker at discharge and prefers [facility]. had no further questions at this time. CM will continue to follow this patient and plan for a safe discharge.
--- NOTE | 2022-10-17 12:47 | DCINST_ITS ---
Discharge Instructions Diet Discharge Diet: Low fat / Low cholesterol Activity Discharge Activity: Return to Normal Activity Dressing / Incision Call your doctor if you observe: Fever of 101 or Higher, Shortness of breath and Chest pain Follow Up Care Test Results: Test results from this visit will be discussed in further detail at your follow- up appointment, if applicable. Discharge Plan Admission Admit Date/Time: 10/14/22 01:00 Primary Reason for Your Visit: Pneumonia Attending Provider: Daquan Miller Primary Care Provider: Rodo Edmonds Consulting Providers: Deandre Henson ; Miko Ramirez Instructions Additional Instructions / Restrictions: You presented with pneumonia. Overall he did much better. You will need to continue with the antibiotics as instructed. At home, you had bizarre behaviors and this is likely compounded by the fact that you had pneumonia but also your pain medications. You noted that you have uncontrolled pain. Unfortunately, you will need to follow-up with Dr. Alegre to have this further addressed since you are already established with him. He did have a myocardial infarction due to the stress of your underlying illness. You are seen by cardiology and they felt it was due to the stress of the illness. You admitted that you were very depressed you had not been showing for the past 8 weeks. Strongly advised to follow-up with your psychiatrist for further medications adjustments, if necessary, and counseling. Discharge Orders/Prescriptions Prescriptions: New ferrous sulfate [FeroSul] 325 mg (65 mg iron) Tablet 325 mg PO DAILY@1200 Qty: 30 0RF amoxicillin-pot clavulanate 875-125 mg tablet 1 tab PO BID Qty: 8 0RF Continued zolpidem 10 mg tablet 10 mg PO QHS PRN (Reason: Sleep) acetaminophen 500 MG tablet 1,000 mg PO DAILY PRN (Reason: Pain) ibuprofen 200 MG tablet 400 - 600 mg PO DAILY PRN (Reason: Pain) hydrocodone-acetaminophen 5-325 mg Tablet 1 tab PO BID PRN (Reason: Pain) fluoxetine 10 mg Tablet 10 mg PO DAILY levothyroxine 25 mcg tablet Label Comments: TAKE 1 TABLET BY MOUTHEONCE DAILY lorazepam 1 mg tablet Label Comments: TAKE 1 TABLET BY MOUTHEONCE DAILY NEEDED FORPANXIETY buprenorphine 20 mcg/hour patch weekly Label Comments: apply 1 patch topically to CLEAN, DRY, AND INTACT SKIN REMOVE AND REPLACE weekly isosorbide dinitrate 30 mg tablet 30 mg PO BID (DME) handicap placcard See Rx Instructions .Route .MEDSUPPLY Qty: 1 0RF Rx Instructions: dx: debility, CHF Lifetime fenofibrate 160 mg tablet 160 mg PO DAILY Qty: 90 3RF albuterol sulfate 90 mcg/actuation HFA aerosol inhaler 2 puff inhalation Q4H PRN (Reason: shortness of breath or wheezing) Qty: 8.5 3RF rabeprazole [AcipHex] 20 mg tablet,delayed release (DR/EC) 20 mg PO DAILY Qty: 90 0RF quetiapine 200 mg tablet 200 mg PO .Four times a day Qty: 120 1RF aspirin [Adult Aspirin Regimen] 81 mg tablet,delayed release (DR/EC) 81 mg PO QDAY Qty: 90 3RF carvedilol 25 mg tablet 50 mg PO BID Qty: 360 3RF Rx Instructions: Hold for heart less than 60 or systolic blood pressure less than 100 mmHg. clonidine HCl 0.1 mg tablet 0.1 mg PO BID Qty: 180 3RF clopidogrel 75 mg tablet 75 mg PO DAILY Qty: 90 3RF nifedipine 90 mg tablet extended release 24hr 90 mg PO DAILY Qty: 90 3RF hydralazine 50 mg tablet 150 mg PO TID Qty: 810 3RF Rx Instructions: Hold for SBP less than 130 mmHg Discontinued citalopram 20 mg tablet Label Comments: take 1 tablet by mouth once daily Referrals / Follow Up: Rodo Edmonds MD [Primary Care Provider] - Within 2 Weeks Disposition Disposition (needs filled in before D/C Order can be placed): Home, Self Care
--- NOTE | 2022-10-17 12:54 | DS.PCM_ITS ---
Providers Date of Admission: 10/14/22 Primary Care Physician: Dr. Rodo Edmonds MD Consultations 10/14/22 01:21 Consult: Cardiology Routine Consulting Provider: Miko Ramirez Reason for Consult: Elevated troponin EMERGENT Consult: No MD Notified: Yes Date Notified: 10/14/22 Time Notified: 01:02 Method of Notification: ED Physician Initiated Method of Consult:: In-Person Reason For Visit: ELEVATED TROPONIN, PNEUMONIA Diagnosis Discharge Diagnosis (1) Pneumonia: Status: Acute Code(s): J18.9 - Pneumonia, unspecified organism Qualifiers: Pneumonia type: due to Pneumococcus Laterality: right Lung location: unspecified part of lung Qualified Code(s): J13 - Pneumonia due to Streptococcus pneumoniae Plan: Diffuse right-sided pneumonia Abx w CTX and azithromycin PEP therapy Check SCx, BCx, Strep and legionella antigens negative Will discharge with Augmentin. (2) Elevated troponin: Status: Acute Code(s): R77.8 - Other specified abnormalities of plasma proteins Plan: trending down I suspect type II NSTEMI from pneumonia Cards consult appreciated. No additional work up at this time. (3) Uncontrolled hypertension: Status: Acute Code(s): I10 - Essential (primary) hypertension Plan: improved Continue carvedilol 50 BID, isosorbide 30 BID, nifedipine 90 daily, hydralazine 150 TID (4) Hypokalemia: Status: Acute Code(s): E87.6 - Hypokalemia Plan: ongoing, continue to replace Magnesium 2.1 (5) Encephalopathy acute: Status: Acute Code(s): G93.40 - Encephalopathy, unspecified Plan: Resolved Bizarre behaviors at home where he was urinating in different areas of the ho use. Suspect due to pneumonia and Butrans patch. No additional work up at this time (6) Depression: Status: Acute Code(s): F32.A - Depression, unspecified Plan: Had not showed in about 8 weeks. Pt to follow with his psychiatrist He denies suicidal ideation (7) Anemia: Status: Acute Code(s): D64.9 - Anemia, unspecified Plan: down from August 2021 Iron 34, TIBC 302, ferritin 180, B12 449, folate 3.4, TSH 6.33 Check FT4, T3 Start Iron Plan Chronic conditions: * marfan's syndrome * h/o aortic dissection s/p replair * Chronic pain: Continue with Butrans patch which is currently in place. Continue with his [place]. Follow-up with Dr. Alegre. Patient had been started on morphine. I discussed with the patient that he states he is already est ablished with pain management and he has no new pain issues, I will not prescribe this upon discharge. He will need to follow-up with Dr. Alegre. VTE prophylaxis: LMWH Disposition: To home Medications at Discharge Home Medications acetaminophen 500 mg tablet 1,000 mg PO DAILY PRN Pain 05/19/18 ibuprofen 200 mg tablet 400 - 600 mg PO DAILY PRN Pain 05/19/18 zolpidem 10 mg tablet 10 mg PO QHS PRN Sleep 01/18/21 handicap placcard #1 ea 03/15/21 fenofibrate 160 mg tablet 160 mg PO DAILY #90 tabs 09/18/21 albuterol sulfate 90 mcg/actuation aerosol inhaler 2 puff inhalation Q4H PRN shortness of breath or wheezing #8.5 grams 10/03/21 rabeprazole 20 mg tablet,delayed release (AcipHex) 20 mg PO DAILY stomach #90 tabs 07/17/22 quetiapine 200 mg tablet 200 mg PO .Four times a day sleep #120 tabs 09/01/22 aspirin 81 mg tablet,delayed release (Adult Aspirin Regimen) 81 mg PO QDAY #90 tabs 09/16/22 carvedilol 25 mg tablet 50 mg PO BID #360 tabs 09/16/22 clonidine HCl 0.1 mg tablet 0.1 mg PO BID blood pressure #180 tabs 09/16/22 clopidogrel 75 mg tablet 75 mg PO DAILY heart health #90 tabs 09/16/22 hydralazine 50 mg tablet 150 mg PO TID #810 tabs 09/16/22 nifedipine 90 mg tablet,extended release 24 hr 90 mg PO DAILY BP #90 tabs 09/16/22 buprenorphine 20 mcg/hour weekly transdermal patch 10/13/22 fluoxetine 10 mg tablet 10 mg PO DAILY 10/13/22 hydrocodone-acetaminophen 5-325mg 5mg-325mg 1 tab PO BID PRN Pain 10/13/22 isosorbide dinitrate 30 mg tablet 30 mg PO BID blood pressure 10/13/22 levothyroxine 25 mcg tablet mcg 10/13/22 lorazepam 1 mg tablet mg 10/13/22 amoxicillin 875 mg-potassium clavulanate 125 mg tablet 1 tab PO BID #8 tabs 10/17/22 ferrous sulfate 325 mg (65 mg iron) tablet (FeroSul) 325 mg PO DAILY@1200 #30 tabs 10/17/22 Hospital Course Operations None Procedures None Summary of Care Provided Minutes Spent on Discharge: 32 Hospital Course: Patient presents with confusion. Patient was found to have extensive right-s ided infiltrate. Patient was started on antibiotics with ceftriaxone azithromycin. Overall improved. The confusion resolved. Patient was confused and was peeing and various parts of the house and had no recollection of that whatsoever. That is likely due to the patient's pneumonia but also has medications which is a [place]rans and [place]. Prior to that, patient had not showered for 8 weeks. This was an intentional decision on him. Just a Mary feel the need. Patient noted that he was depressed and did not have the motivation for self-care. Patient is not suicidal. Patient was offered [facility] for additional psychiatric management but patient declined. Patient does have a psychiatrist that he follows up and will follow-up with him for further treatments. Patient did have elevated cardiac enzymes. Patient was seen by cardiology and this was felt to be due to the physiologic stress of his pneumonia. No additional work-up from a cardiac perspective was performed. Weight / BMI Weight Weight: 118.6 kg Body Mass Index (BMI) 26.0 ABG / Lab / Microbiology Data Result Diagrams: 10/16/22 06:18 10/16/22 06:18 Microbiology: Microbiology 10/14/22 09:04 Blood Culture (Wb) - Right Wrist Blood Culture - Preliminary No growth in 48 hours. 10/14/22 09:00 Blood Culture (Wb) - Anticubital Right Blood Culture - Preliminary No growth in 48 hours. 10/14/22 10:35 Urine, Clean Catch Legionella Antigen - Final 10/14/22 10:35 Urine, Clean Catch Streptococcus pneumoniae Antigen (M - Final D/C Instructions Discharge Diet: Low fat / Low cholesterol Call your doctor if you observe: Fever of 101 or Higher, Shortness of breath and Chest pain Meaningful Use Info Meaningful Use Diagnoses (Choose all that apply): None applicable Discharge Plan Admission Admit Date/Time: 10/14/22 01:00 Primary Reason for Your Visit: Pneumonia Attending Provider: Daquan Miller Primary Care Provider: Rodo Edmonds Consulting Providers: Deandre Henson ; Miko Ramirez Instructions Additional Instructions / Restrictions: You presented with pneumonia. Overall he did much better. You will need to continue with the antibiotics as instructed. At home, you had bizarre behaviors and this is likely compounded by the fact that you had pneumonia but also your pain medications. You noted that you have uncontrolled pain. Unfortunately, you will need to follow-up with Dr. Alegre to have this further addressed since you are already established with him. He did have a myocardial infarction due to the stress of your underlying illness. You are seen by cardiology and they felt it was due to the stress of the illness. You admitted that you were very depressed you had not been showing for the past 8 weeks. Strongly advised to follow-up with your psychiatrist for further medications adjustments, if necessary, and counseling. Discharge Orders/Prescriptions Prescriptions: New ferrous sulfate [FeroSul] 325 mg (65 mg iron) Tablet 325 mg PO DAILY@1200 Qty: 30 0RF amoxicillin-pot clavulanate 875-125 mg tablet 1 tab PO BID Qty: 8 0RF Continued zolpidem 10 mg tablet 10 mg PO QHS PRN (Reason: Sleep) acetaminophen 500 MG tablet 1,000 mg PO DAILY PRN (Reason: Pain) ibuprofen 200 MG tablet 400 - 600 mg PO DAILY PRN (Reason: Pain) hydrocodone-acetaminophen 5-325 mg Tablet 1 tab PO BID PRN (Reason: Pain) fluoxetine 10 mg Tablet 10 mg PO DAILY levothyroxine 25 mcg tablet Label Comments: TAKE 1 TABLET BY MOUTHEONCE DAILY lorazepam 1 mg tablet Label Comments: TAKE 1 TABLET BY MOUTHEONCE DAILY NEEDED FORPANXIETY buprenorphine 20 mcg/hour patch weekly Label Comments: apply 1 patch topically to CLEAN, DRY, AND INTACT SKIN REMOVE AND REPLACE weekly isosorbide dinitrate 30 mg tablet 30 mg PO BID (DME) handicap placcard See Rx Instructions .Route .MEDSUPPLY Qty: 1 0RF Rx Instructions: dx: debility, CHF Lifetime fenofibrate 160 mg tablet 160 mg PO DAILY Qty: 90 3RF albuterol sulfate 90 mcg/actuation HFA aerosol inhaler 2 puff inhalation Q4H PRN (Reason: shortness of breath or wheezing) Qty: 8.5 3RF rabeprazole [AcipHex] 20 mg tablet,delayed release (DR/EC) 20 mg PO DAILY Qty: 90 0RF quetiapine 200 mg tablet 200 mg PO .Four times a day Qty: 120 1RF aspirin [Adult Aspirin Regimen] 81 mg tablet,delayed release (DR/EC) 81 mg PO QDAY Qty: 90 3RF carvedilol 25 mg tablet 50 mg PO BID Qty: 360 3RF Rx Instructions: Hold for heart less than 60 or systolic blood pressure less than 100 mmHg. clonidine HCl 0.1 mg tablet 0.1 mg PO BID Qty: 180 3RF clopidogrel 75 mg tablet 75 mg PO DAILY Qty: 90 3RF nifedipine 90 mg tablet extended release 24hr 90 mg PO DAILY Qty: 90 3RF hydralazine 50 mg tablet 150 mg PO TID Qty: 810 3RF Rx Instructions: Hold for SBP less than 130 mmHg Discontinued citalopram 20 mg tablet Label Comments: take 1 tablet by mouth once daily Referrals / Follow Up: Rodo Edmonds MD [Primary Care Provider] - Within 2 Weeks Disposition Disposition (needs filled in before D/C Order can be placed): Home, Self Care Charges/Coding Visit Charges Inpatient E&M: 33099 Disch Hosp >30min
--- NOTE | 2022-10-17 14:39 | PHA.DC.MC ---
Pharmacy Service has performed discharge medication reconciliation and counseling for this patient. 1. AUGMENTIN 875MG PO BID X 4 DAYS 2. FERROUS SULFATE 325MG PO DAILY The patient's discharge medication list was reviewed for discrepancies and discrepancies were resolved. Home Medications acetaminophen 500 mg tablet 1,000 mg PO DAILY PRN Pain 05/19/18 ibuprofen 200 mg tablet 400 - 600 mg PO DAILY PRN Pain 05/19/18 zolpidem 10 mg tablet 10 mg PO QHS PRN Sleep 01/18/21 handicap placcard #1 ea 03/15/21 fenofibrate 160 mg tablet 160 mg PO DAILY #90 tabs 09/18/21 albuterol sulfate 90 mcg/actuation aerosol inhaler 2 puff inhalation Q4H PRN shortness of breath or wheezing #8.5 grams 10/03/21 rabeprazole 20 mg tablet,delayed release (AcipHex) 20 mg PO DAILY stomach #90 tabs 07/17/22 quetiapine 200 mg tablet 200 mg PO .Four times a day sleep #120 tabs 09/01/22 aspirin 81 mg tablet,delayed release (Adult Aspirin Regimen) 81 mg PO QDAY #90 tabs 09/16/22 carvedilol 25 mg tablet 50 mg PO BID #360 tabs 09/16/22 clonidine HCl 0.1 mg tablet 0.1 mg PO BID blood pressure #180 tabs 09/16/22 clopidogrel 75 mg tablet 75 mg PO DAILY heart health #90 tabs 09/16/22 hydralazine 50 mg tablet 150 mg PO TID #810 tabs 09/16/22 nifedipine 90 mg tablet,extended release 24 hr 90 mg PO DAILY BP #90 tabs 09/16/22 buprenorphine 20 mcg/hour weekly transdermal patch 10/13/22 fluoxetine 10 mg tablet 10 mg PO DAILY 10/13/22 hydrocodone-acetaminophen 5-325mg 5mg-325mg 1 tab PO BID PRN Pain 10/13/22 isosorbide dinitrate 30 mg tablet 30 mg PO BID blood pressure 10/13/22 levothyroxine 25 mcg tablet mcg 10/13/22 lorazepam 1 mg tablet mg 10/13/22 amoxicillin 875 mg-potassium clavulanate 125 mg tablet 1 tab PO BID #8 tabs 10/17/22 ferrous sulfate 325 mg (65 mg iron) tablet (FeroSul) 325 mg PO DAILY@1200 #30 tabs 10/17/22 The patient was counseled on the following discharge medications and changes in medications for homegoing were reviewed. The Reason for Use, instructions for use, and potential side effects were reviewed for all new medications. The patient's questions regarding all of their medications were answered. The patient was able to verbally demonstrate an understanding of their discharge medications. Patient counseled by certified pharmacy technicianAnjel.
--- NOTE | 2022-10-17 15:15 | CASEMGMT ---
RN CM in to discuss discharge plans with patient. RN CM discuss HHC at discharge and patient agreeable to [facility]. Patient also agreeable to walker at discharge. Script received and sent to [facility]. Per Yue at [facility], patient will need extenders for FWW and are not available at this time. Walker to be dropped shipped to patients home. RN CM received call back from [facility] and they are able to accept patient for start of care on 10/21. Patient did not qualify for home oxygen. RN CM called and updated regarding walker and home health. had no further questions or concerns at this time.
== END 2022-10-17 17:38 | disposition home health service (06) | DRG 193 ==
LOC: ED 22:41 → PCU 10-14 01:15
PROVIDERS: Emergency Medicine; Admitting Provider Family Medicine; Emergency Provider Emergency Medicine; PCP Family Medicine
DX: J13 Pneumonia due to Streptococcus pneumoniae (principal); I21.A1 Myocardial infarction type 2; G92.8 Other toxic encephalopathy; G93.49 Other encephalopathy; Q87.418 Marfan syndrome with other cardiovascular manifestations; I10 Essential (primary) hypertension; I25.10 Atherosclerotic heart disease of native coronary artery without angina pectoris; E87.6 Hypokalemia; D64.9 Anemia, unspecified; T40.2X5A Adverse effect of other opioids, initial encounter; B95.3 Streptococcus pneumoniae as the cause of diseases classified elsewhere; F32.A Depression, unspecified; G89.29 Other chronic pain; Z95.1 Presence of aortocoronary bypass graft; Z79.02 Long term (current) use of antithrombotics/antiplatelets; Z79.82 Long term (current) use of aspirin; Z79.891 Long term (current) use of opiate analgesic; Z79.899 Other long term (current) drug therapy
CPT/HCPCS: 36415; 36600; 71045; 71275; 80048; 80053; 81001; 82140; 82607; 82728; 82746; 82803; 82962; 83540; 83550; 83605; 83735; 83880; 84439; 84443; 84481; 84484; 85025; 87040; 87449; 93005; 93306; 94667; 94668; 97162; 97166; 97530; 97535; 99285; J7050; P9612; Q9957; Q9967; A4216; C8929

== ENCOUNTER → 2022-10-30 | Outpatient (CLI) | payer OTHER, MEDICARE, SELFPAY ==
[2022-10-30 17:12] LABS: Basophil# 0.04 X10^3/uL; Basophil% 0.5 % (0-1); Eosinophil# 0.24 X10^3/uL; Eosinophils% 2.9 % (0-5); Hematocrit 35.3 % (40-54); Hemoglobin 11.2 g/dL (13.0-16.5); Lymphocyte % 9.8 % (19-41); Mean Corp Hgb Conc 31.7 g/dL (32-36); Mean Corpuscular Hgb 28.6 pg (27.0-32.0); Mean Corpuscular Volume 90.3 fL (80-94); Mean Platelet Vol. 9.3 fl (6.2-12.0); Monocyte# 0.97 X10^3/uL; Monocyte% 11.9 % (0-10); NRBC Flagged by Analyzer 0 % (0-5); Neutrophil # 5.99 X10^3/uL (2.7-7.7); Neutrophil % 73.6 % (47-70); Platelet Count 291 K/mm3 (150-450); RBC Distribution Width CV 15.9 % (11.6-14.6); RBC Distribution Width SD 51.9 fl (35.1-43.9); Red Blood Count 3.91 M/mm3 (4.6-6.2); White Blood Count 8.2 K/mm3 (4.4-11.0)
[2022-10-30 17:45] LABS: Hemoglobin A1c 5.3 % (3.8-5.6)
[2022-10-30 18:02] LABS: AST(SGOT) 45 U/L (15-37); Alanine Aminotransfer ALT/SGPT 52 U/L (16-61); Albumin, Serum 4.1 g/dL (3.2-5.0); Alkaline Phosphatase 84 U/L (45-117); Anion Gap 8 (5-15); BUN 17 mg/dL (7-18); BUN/Creat Ratio 12.7 RATIO (10-20); Calcium,Total 9.3 mg/dL (8.5-10.1); Chloride 105 mmol/L (98-107); Cholesterol 213 mg/dL (200); Creatinine, Serum 1.34 mg/dL (0.70-1.30); EST Glomerular Filtration Rate 59 mL/min (>60); Est Glom Filt Rate - Afr Amer 72 mL/min (>60); Globulin 4.3 g/dL (2.2-4.2); Glucose 163 mg/dL (74-106); High Density Lipoprotein 21 mg/dL; Potassium 3.8 mmol/L (3.5-5.1); Protein, Total 8.4 g/dL (6.4-8.2); Sodium Level 137 mmol/L (136-145); Thyroid Stim Hormone (TSH) 3.91 uIU/mL (0.358-3.74); Triglycerides 327 mg/dL; Very Low Density Lipoprotein 65 mg/dL (5-40)
== END | disposition home or self-care (01) ==
LOC: LAB 16:27
PROVIDERS: PCP Family Medicine; Visit Provider Family Medicine
DX: D64.9 Anemia, unspecified (principal); F33.41 Major depressive disorder, recurrent, in partial remission; I10 Essential (primary) hypertension; E87.6 Hypokalemia
CPT/HCPCS: 36415; 80053; 80061; 83036; 84443; 85025

== ENCOUNTER 2023-07-30 13:02 | Observation (INO) | payer OTHER, MEDICARE, SELFPAY ==
[2023-07-30 13:04] VITALS: BP 125/71; PULSE 78; RESP 18; TEMP 36.2; O2SAT 95; BMI 30.7
--- NOTE | 2023-07-30 13:21 | EDS_ITS ---
HPI <SHELIA Raines - Last Filed: 07/30/23 13:29> History of Present Illness Chief Complaint: Hyperglycemia Narrative Narrative: 52-year-old male with past medical history Marfan's disease was sent in by his primary care's office when a fingerstick glucose was 580. He does not have a known history of diabetes. He states 7 weeks ago he got a spinal injection for chronic pain and since then he has been extremely thirsty, fatigued, and has increased urination. He lost 20 pounds. PFSH <SHELIA Raines - Last Filed: 07/30/23 13:29> [facility] Medical History (Updated 07/30/23 @ 14:[address] 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 Essential (primary) hypertension (05/20/18) GERD (gastroesophageal reflux disease) History of aortic dissection Hyperkalemia Hyperlipidemia Hypertensive urgency Hypoxia Infection of external auditory canal Marfan syndrome Marfans syndrome Nonobstructive atherosclerosis of coronary artery NEO (obstructive sleep apnea) Uncontrolled hypertension Home Medications acetaminophen 500 mg tablet 1,000 mg PO DAILY PRN Pain 05/19/18 [History Last Taken 05/19/18] ibuprofen 200 mg tablet 400 - 600 mg PO DAILY PRN Pain 05/19/18 [History Last Taken 05/19/18] handicap placcard #1 ea 03/15/21 [Rx Last Taken Unknown] fenofibrate 160 mg tablet 160 mg PO DAILY #90 tabs 09/18/21 [Rx Last Taken Unknown] albuterol sulfate 90 mcg/actuation aerosol inhaler 2 puff inhalation Q4H PRN shortness of breath or wheezing #8.5 grams 10/03/21 [Rx Last Taken Unknown] aspirin 81 mg tablet,delayed release (Adult Aspirin Regimen) 81 mg PO QDAY #90 tabs 09/16/22 [Rx Last Taken Unknown] carvedilol 25 mg tablet 50 mg (2 x 25 mg) PO BID #360 tabs 09/16/22 [Rx Last Taken Unknown] clonidine HCl 0.1 mg tablet 0.1 mg PO BID blood pressure #180 tabs 09/16/22 [Rx Last Taken Unknown] clopidogrel 75 mg tablet 75 mg PO DAILY heart health #90 tabs 09/16/22 [Rx Last Taken Unknown] hydralazine 50 mg tablet 150 mg (3 x 50 mg) PO TID #810 tabs 09/16/22 [Rx Last Taken Unknown] buprenorphine 20 mcg/hour weekly transdermal patch 10/13/22 [History Last Taken Unknown] fluoxetine 10 mg tablet 10 mg PO DAILY 10/13/22 [History Last Taken Unknown] hydrocodone-acetaminophen 5-325mg 5mg-325mg 1 tab PO BID PRN Pain 10/13/22 [History Last Taken Unknown] isosorbide dinitrate 30 mg tablet 30 mg PO BID blood pressure 10/13/22 [History Last Taken Unknown] lorazepam 1 mg tablet mg 10/13/22 [History Last Taken Unknown] amoxicillin 875 mg-potassium clavulanate 125 mg tablet 1 tab PO BID #8 tabs 10/17/22 [Rx Last Taken Unknown] ferrous sulfate 325 mg (65 mg iron) tablet (FeroSul) 325 mg PO DAILY@1200 #30 tabs 10/17/22 [Rx Last Taken Unknown] levothyroxine 25 mcg tablet 25 mcg PO DAILY #90 tabs 01/16/23 [Rx Last Taken Unknown] rabeprazole 20 mg tablet,delayed release (AcipHex) 20 mg PO DAILY stomach #90 tabs 02/03/23 [Rx Last Taken Unknown] nifedipine 60 mg tablet,extended release 24 hr 60 mg PO DAILY BP #30 tabs 02/26/23 [Rx Last Taken Unknown] zolpidem 10 mg tablet 10 mg PO QHS PRN sleep #30 tabs 04/30/23 [Rx Last Taken Unknown] quetiapine 200 mg tablet 200 mg PO .Four times a day sleep #120 tabs 05/11/23 [Rx Last Taken Unknown] Allergy/AdvReac Type Severity Reaction Status Date / Time Quinolones Allergy Unknown PT UNSURE Verified 07/30/23 13:04 OF REACTION ciprofloxacin [From Cipro] Allergy Rash Verified 07/30/23 13:04 ciprofloxacin HCl Allergy Rash Verified 07/30/23 13:04 [From Cipro] sulfamethoxazole Allergy Rash Verified 07/30/23 13:04 [From Bactrim] tramadol Allergy Itching Verified 07/30/23 13:04 trimethoprim [From Bactrim] Allergy Rash Verified 07/30/23 13:04 Family History Son Marfans syndrome Daughter Marfans syndrome Father Hypertension Grandfather Heart disease Myocardial infarction CVA (cerebral vascular accident) Grandmother Heart disease Surgical History H/O coronary artery bypass surgery (03/08/11) History of hand surgery History of left heart catheterization (12/14/20) History of mitral valve repair (03/08/11) History of open reduction and internal fixation (ORIF) procedure (2017) History of surgical fusion joint History of tonsillectomy Hx of ascending aorta replacement (03/08/11) Social History household members: spouse Smoking Status: Never smoker alcohol intake: current alcohol intake frequency: a few times a month substance use type: does not use ROS <SHELIA Raines - Last Filed: 07/30/23 13:29> ROS ED ROS Narrative Constitutional: Negative for fever, chills. CVS: Negative for chest pain. Respiratory: Negative for shortness of breath. GI: Negative for abdominal pain, nausea, vomiting. : Negative for dysuria. EXAM <SHELIA Raines - Last Filed: 07/30/23 13:29> Physical Exam Narrative Exam Narrative: CONST: Patient sitting in no acute distress. EYES: Normal inspection. ENT: Normal inspection, dry mucous membranes. NECK: Normal inspection. RESP: No respiratory distress, CTAB. CVS: Regular rate and rhythm, no murmur, no gallop. ABD: Soft and nontender, no guarding or rebound, nondistended. SKIN: Color normal, no rash, warm, dry, intact. EXTREMITIES: Normal appearance, no pedal edema. NEURO: Oriented x4. PSYCH: Normal affect. Const Vital Signs: 07/30/23 13:04 07/30/23 14:08 Temperature 97.1 F L Temperature Source Temporal Pulse Rate 78 Respiratory Rate 18 Respiratory Effort Normal Respiratory Pattern Normal Blood Pressure 125/71 H Blood Pressure Mean 89 Pulse Ox 95 Oxygen Delivery Method Room Air <Dr. Yaakov Barrientos DO - Last Filed: 07/30/23 14:21> Physical Exam Const Vital Signs: 07/30/23 13:04 07/30/23 14:08 Temperature 97.1 F L Temperature Source Temporal Pulse Rate 78 Respiratory Rate 18 Respiratory Effort Normal Respiratory Pattern Normal Blood Pressure 125/71 H Blood Pressure Mean 89 Pulse Ox 95 Oxygen Delivery Method Room Air [facility] <SHELIA Raines - Last Filed: 07/30/23 13:29> [facility] Narrative Medical decision making narrative: History gathered from: Patient, PCP telephone report Differential: New onset diabetes with hyperglycemia versus DKA Patient sent in for new onset diabetes with outpatient blood sugar around 580. He reports a history of polyuria and polydipsia. He appears well and nontoxic. Afebrile with normal vital signs. He has dry mucous membranes and smells like ketones. The rest of his exam is benign. Lab Data Labs: Laboratory Results - last 24 hr 07/30/23 13:40 WBC 4.9 RBC 4.77 Hgb 13.6 Hct 41.0 MCV 86.0 MCH 28.5 MCHC 33.2 RDW Std Deviation 39.8 RDW Coeff of Lalita 13.0 Plt Count 198 MPV 10.5 Immature Gran % (Auto) 1.400 H Neut % (Auto) 61.8 Lymph % (Auto) 19.7 Burke % (Auto) 12.6 H Eos % (Auto) 3.7 Baso % (Auto) 0.8 Absolute Neuts (auto) 3.0 Absolute Lymphs (auto) 0.97 Nucleated RBC % 0 Sodium 125 L Potassium 4.0 Chloride 92 L Carbon Dioxide 25.0 Anion Gap 8 BUN 19 H Creatinine 1.65 H Estim Creat Clear Calc 70.80 Est GFR (MDRD) Af Amer 56 L Est GFR (MDRD) Non-Af 46 L BUN/Creatinine Ratio 11.5 Glucose 841 H* Calcium 8.5 Acetone Level NEGATIVE <Dr. Yaakov Barrientos DO - Last Filed: 07/30/23 14:21> [facility] Narrative Medical decision making narrative: History gathered from: Patient, PCP telephone report Differential: New onset diabetes with hyperglycemia versus DKA Patient sent in for new onset diabetes with outpatient blood sugar around 580. He reports a history of polyuria and polydipsia. He appears well and nontoxic. Afebrile with normal vital signs. He has dry mucous membranes and smells like ketones. The rest of his exam is benign. I have personally performed a face to face assessment of the patient and have reviewed the RILEY Note. I performed a substantive portion of the visit including all aspects of the following. My castillo findings include: History is [patient presents with elevated blood sugars. Patient for the last 7 weeks has had increased thirst and increased urination and some blurred vision. Waited to see his primary care physician today. His blood sugar was checked in the office and was well over 500 and referred to the emergency department. Patient has history of Marfan's and history of chronic pain. Patient states that 8 weeks ago he had a steroid injection and he thinks maybe that is what set things off. No history of diabetes otherwise. He does have history of sleep apnea as well as hypertension.] Exam is [HEENT-PERRLA, EOMI. Cranial nerves II through XII grossly intact. TMs clear. Mucous membranes moist. No adenopathy. Cardiovascular-regular rate and rhythm without murmur or ectopy Lungs-clear to auscultation, chest wall stable without crepitus or subcu emphysema Abdomen-normoactive bowel sounds, soft, nontender, no rebound or rigidity, no peritoneal signs. Extremities-intact ?4, normal range of motion, normal pulses, atraumatic] Medical Decison Making [patient presents with hyperglycemia with vision changes and frequent urination. IV line established. CBC with differential count of 4.9 with hemoglobin 13.6 and platelet count of 1 98. Chemistry showed a sodium of 125 with anion gap of 8. BUN 19 and creatinine 1.65. Blood glucose was 841. Acetone was negative. Patient will be started on insulin drip. Case discussed with hospitalist to evaluate patient for admission for hyperglycemia and new onset diabetes] Other additions or changes: [None] Lab Data Attestation: I reviewed the patient's lab results. Labs: Laboratory Results - last 24 hr 07/30/23 13:40 WBC 4.9 RBC 4.77 Hgb 13.6 Hct 41.0 MCV 86.0 MCH 28.5 MCHC 33.2 RDW Std Deviation 39.8 RDW Coeff of Lalita 13.0 Plt Count 198 MPV 10.5 Immature Gran % (Auto) 1.400 H Neut % (Auto) 61.8 Lymph % (Auto) 19.7 Burke % (Auto) 12.6 H Eos % (Auto) 3.7 Baso % (Auto) 0.8 Absolute Neuts (auto) 3.0 Absolute Lymphs (auto) 0.97 Nucleated RBC % 0 Sodium 125 L Potassium 4.0 Chloride 92 L Carbon Dioxide 25.0 Anion Gap 8 BUN 19 H Creatinine 1.65 H Estim Creat Clear Calc 70.80 Est GFR (MDRD) Af Amer 56 L Est GFR (MDRD) Non-Af 46 L BUN/Creatinine Ratio 11.5 Glucose 841 H* Calcium 8.5 Acetone Level NEGATIVE Discharge Plan Triage Chief Complaint: Hyperglycemia ED Midlevel Provider: Savanah Martinez ED Provider: Yaakov Barrientos Dx/Rx/DC Orders Clinical Impression: [place] (acute kidney injury), Hyperglycemia, Diabetes mellitus, new onset Prescriptions: No Action acetaminophen 500 MG tablet 1,000 mg PO DAILY PRN (Reason: Pain) ibuprofen 200 MG tablet 400 - 600 mg PO DAILY PRN (Reason: Pain) hydrocodone-acetaminophen 5-325 mg Tablet 1 tab PO BID PRN (Reason: Pain) fluoxetine 10 mg Tablet 10 mg PO DAILY lorazepam 1 mg tablet Patient Comments: TAKE 1 TABLET BY MOUTHEONCE DAILY NEEDED FORPANXIETY buprenorphine 20 mcg/hour patch weekly Patient Comments: apply 1 patch topically to CLEAN, DRY, AND INTACT SKIN REMOVE AND REPLACE weekly isosorbide dinitrate 30 mg tablet 30 mg PO BID ferrous sulfate [FeroSul] 325 mg (65 mg iron) Tablet 325 mg PO DAILY@1200 Qty: 30 0RF amoxicillin-pot clavulanate 875-125 mg tablet 1 tab PO BID Qty: 8 0RF (DME) handicap placcard See Rx Instructions .Route .MEDSUPPLY Qty: 1 0RF Rx Instructions: dx: debility, CHF Lifetime fenofibrate 160 mg tablet 160 mg PO DAILY Qty: 90 3RF albuterol sulfate 90 mcg/actuation HFA aerosol inhaler 2 puff inhalation Q4H PRN (Reason: shortness of breath or wheezing) Qty: 8.5 3RF aspirin [Adult Aspirin Regimen] 81 mg tablet,delayed release (DR/EC) 81 mg PO QDAY Qty: 90 3RF carvedilol 25 mg tablet 50 mg PO BID Qty: 360 3RF Rx Instructions: Hold for heart less than 60 or systolic blood pressure less than 100 mmHg. clonidine HCl 0.1 mg tablet 0.1 mg PO BID Qty: 180 3RF clopidogrel 75 mg tablet 75 mg PO DAILY Qty: 90 3RF hydralazine 50 mg tablet 150 mg PO TID Qty: 810 3RF Rx Instructions: Hold for SBP less than 130 mmHg levothyroxine 25 mcg tablet 25 mcg PO DAILY Qty: 90 3RF rabeprazole [AcipHex] 20 mg tablet,delayed release (DR/EC) 20 mg PO DAILY Qty: 90 3RF nifedipine 60 mg tablet extended release 24hr 60 mg PO DAILY Qty: 30 11RF zolpidem 10 mg tablet 10 mg PO QHS PRN (Reason: sleep) Qty: 30 0RF quetiapine 200 mg tablet 200 mg PO .Four times a day Qty: 120 2RF Primary Care Provider: Rodo Edmonds Referrals: Rodo Edmonds MD [Primary Care Provider] - Disposition Disposition: Acute Care Hospital [facility]
[2023-07-30] MEDS: 0.9% Normal Saline (1000mL) 1,000 ML 999 ML IV (13:41)
[2023-07-30 13:46] LABS: Absolute Lymphocyte Count 0.97 X10^3/uL (0.83-4.51); Basophil# 0.04 X10^3/uL; Basophil% 0.8 % (0-1); Eosinophil# 0.18 X10^3/uL; Eosinophils% 3.7 % (0-5); Hemoglobin 13.6 g/dL (13.0-16.5); Lymphocyte # 0.97 X10^3/ul (0.83-4.51); Lymphocyte % 19.7 % (19-41); Mean Corp Hgb Conc 33.2 g/dL (32-36); Mean Corpuscular Hgb 28.5 pg (27.0-32.0); Mean Platelet Vol. 10.5 fl (6.2-12.0); Monocyte# 0.62 X10^3/uL; Monocyte% 12.6 % (0-10); NRBC Flagged by Analyzer 0 % (0-5); Neutrophil # 3.04 X10^3/uL (2.7-7.7); Neutrophil % 61.8 % (47-70); Platelet Count 198 K/mm3 (150-450); RBC Distribution Width SD 39.8 fl (35.1-43.9); Red Blood Count 4.77 M/mm3 (4.6-6.2); White Blood Count 4.9 K/mm3 (4.4-11.0)
[2023-07-30] MEDS: Ondansetron 4 MG/2 ML Vial IV (13:54)
[2023-07-30] MEDS: Morphine 4 MG/ML Syringe IV (13:54)
[2023-07-30 14:09] LABS: Anion Gap 8 (5-15); BUN 19 mg/dL (7-18); BUN/Creat Ratio 11.5 RATIO (10-20); Calcium,Total 8.5 mg/dL (8.5-10.1); Chloride 92 mmol/L (98-107); Creatinine, Serum 1.65 mg/dL (0.70-1.30); EST Glomerular Filtration Rate 46 mL/min (>60); Est Glom Filt Rate - Afr Amer 56 mL/min (>60); Glucose 841 mg/dL (74-106); Sodium Level 125 mmol/L (136-145)
--- NOTE | 2023-07-30 14:55 | HP.PCM.HOS_ITS ---
[facility] - General General Date of Service: 07/30/23 Chief Complaint: Polyuria. Polydipsia. [facility] Narrative LEIDY DC, is a 52 M who presents who for the past few weeks, has been experiencing polyuria, polydipsia, diffuse myalgias and feeling unwell. Over the past few months he is also been losing roughly about 30 pounds. Present to the emergency room and his glucose was a 41. Patient did receive IV fluids. The hospital service was consulted for admission. The physician ob gyn physician assistant in the emergency room ordered for an insulin drip. Being that is not in DKA, I discontinued that and ordered a dose of Humalog. Patient has been checked for diabetes in the past and has never been tested positive though should be noted that his glucose was 163 back in October. Patient today's had an A1c at that time which was 5.3. 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 Essential (primary) hypertension (05/20/18) GERD (gastroesophageal reflux disease) History of aortic dissection Hyperkalemia Hyperlipidemia Hypertensive urgency Hypoxia Infection of external auditory canal Marfan syndrome Marfans syndrome Nonobstructive atherosclerosis of coronary artery NEO (obstructive sleep apnea) Uncontrolled hypertension Home Medications acetaminophen 500 mg tablet 1,000 mg PO DAILY PRN Pain 05/19/18 [History Last Taken 05/19/18] ibuprofen 200 mg tablet 400 - 600 mg PO DAILY PRN Pain 05/19/18 [History Last Taken 05/19/18] handicap placcard #1 ea 03/15/21 [Rx Last Taken Unknown] fenofibrate 160 mg tablet 160 mg PO DAILY #90 tabs 09/18/21 [Rx Last Taken Unknown] albuterol sulfate 90 mcg/actuation aerosol inhaler 2 puff inhalation Q4H PRN shortness of breath or wheezing #8.5 grams 10/03/21 [Rx Last Taken Unknown] aspirin 81 mg tablet,delayed release (Adult Aspirin Regimen) 81 mg PO QDAY #90 tabs 09/16/22 [Rx Last Taken Unknown] carvedilol 25 mg tablet 50 mg (2 x 25 mg) PO BID #360 tabs 09/16/22 [Rx Last Taken Unknown] clonidine HCl 0.1 mg tablet 0.1 mg PO BID blood pressure #180 tabs 09/16/22 [Rx Last Taken Unknown] clopidogrel 75 mg tablet 75 mg PO DAILY heart health #90 tabs 09/16/22 [Rx Last Taken Unknown] hydralazine 50 mg tablet 150 mg (3 x 50 mg) PO TID #810 tabs 09/16/22 [Rx Last Taken Unknown] buprenorphine 20 mcg/hour weekly transdermal patch 10/13/22 [History Last Taken Unknown] fluoxetine 10 mg tablet 10 mg PO DAILY 10/13/22 [History Last Taken Unknown] hydrocodone-acetaminophen 5-325mg 5mg-325mg 1 tab PO BID PRN Pain 10/13/22 [History Last Taken Unknown] isosorbide dinitrate 30 mg tablet 30 mg PO BID blood pressure 10/13/22 [History Last Taken Unknown] lorazepam 1 mg tablet mg 10/13/22 [History Last Taken Unknown] amoxicillin 875 mg-potassium clavulanate 125 mg tablet 1 tab PO BID #8 tabs 10/17/22 [Rx Last Taken Unknown] ferrous sulfate 325 mg (65 mg iron) tablet (FeroSul) 325 mg PO DAILY@1200 #30 tabs 10/17/22 [Rx Last Taken Unknown] levothyroxine 25 mcg tablet 25 mcg PO DAILY #90 tabs 01/16/23 [Rx Last Taken Unknown] rabeprazole 20 mg tablet,delayed release (AcipHex) 20 mg PO DAILY stomach #90 tabs 02/03/23 [Rx Last Taken Unknown] nifedipine 60 mg tablet,extended release 24 hr 60 mg PO DAILY BP #30 tabs 02/26/23 [Rx Last Taken Unknown] zolpidem 10 mg tablet 10 mg PO QHS PRN sleep #30 tabs 04/30/23 [Rx Last Taken Unknown] quetiapine 200 mg tablet 200 mg PO .Four times a day sleep #120 tabs 05/11/23 [Rx Last Taken Unknown] Allergy/AdvReac Type Severity Reaction Status Date / Time Quinolones Allergy Unknown PT UNSURE Verified 07/30/23 15:02 OF REACTION ciprofloxacin [From Cipro] Allergy Rash Verified 07/30/23 15:02 ciprofloxacin HCl Allergy Rash Verified 07/30/23 15:02 [From Cipro] sulfamethoxazole Allergy Rash Verified 07/30/23 15:02 [From Bactrim] tramadol Allergy Itching Verified 07/30/23 15:02 trimethoprim [From Bactrim] Allergy Rash Verified 07/30/23 15:02 Family History Son Marfans syndrome Daughter Marfans syndrome Father Hypertension Grandfather Heart disease Myocardial infarction CVA (cerebral vascular accident) Grandmother Heart disease Surgical History H/O coronary artery bypass surgery (03/08/11) History of hand surgery History of left heart catheterization (12/14/20) History of mitral valve repair (03/08/11) History of open reduction and internal fixation (ORIF) procedure (2016) History of surgical fusion joint History of tonsillectomy Hx of ascending aorta replacement (03/08/11) Social History household members: spouse Smoking Status: Never smoker alcohol intake: current alcohol intake frequency: a few times a month substance use type: does not use ROS ROS Narrative All review of systems were negative except as mentioned above in the history of present illness and the other review of systems. Vital Signs Vital Signs Vital Signs: 07/30/23 13:04 07/30/23 14:08 Temperature 36.2 C L Temperature Source Temporal Pulse Rate 78 Respiratory Rate 18 Respiratory Effort Normal Respiratory Pattern Normal Blood Pressure 125/71 H Blood Pressure Mean 89 Pulse Ox 95 Oxygen Delivery Method Room Air Weight Weight: 114.305 kg Body Mass Index (BMI) 30.7 Physical Exam Const alert, oriented x3 and no apparent distress HEENT normocephalic and head/scalp atraumatic Resp normal respiratory effort, no retractions, no use of accessory muscles and clear to auscultation bilaterally Cardio regular rate, regular rhythm, S1 normal heart sound and S2 normal heart sound GI normal to inspection, nondistended, normoactive bowel sounds and soft to palpation GI Narrative: Protuberant abdomen but soft nondistended. Extremity normal to inspection Extremity Narrative: Long digits. Patient is missing his right index finger at the PIP. Skin Skin Narrative: No rashes or lesions Results Lab / Micro Data 07/30/23 13:40 07/30/23 13:40 Labs: Laboratory Results - last 24 hr 07/30/23 13:40: WBC 4.9, RBC 4.77, Hgb 13.6, Hct 41.0, MCV 86.0, MCH 28.5, MCHC 33.2, RDW Std Deviation 39.8, RDW Coeff of Lalita 13.0, Plt Count 198, MPV 10.5, Immature Gran % (Auto) 1.400 H, Neut % (Auto) 61.8, Lymph % (Auto) 19.7, Dawes % (Auto) 12.6 H, Eos % (Auto) 3.7, Baso % (Auto) 0.8, Absolute Neuts (auto) 3.0, Absolute Lymphs (auto) 0.97, Nucleated RBC % 0, Sodium 125 L, Potassium 4.0, Chloride 92 L, Carbon Dioxide 25.0, Anion Gap 8, BUN 19 H, Creatinine 1.65 H, Estim Creat Clear Calc 70.80, Est GFR (MDRD) Af Amer 56 L, Est GFR (MDRD) Non-Af 46 L, BUN/Creatinine Ratio 11.5, Glucose 841 H*, Calcium 8.5, Acetone Level NEGATIVE Assessment & Plan Assessment/Plan (1) Diabetes mellitus, new onset: PLAN: Plan Diabetes mellitus type 2, new diagnosis * This may have been ongoing for the past few months. Patient did have an elevated glucose of 163 back in October but A1c at that time was 5.3. * Did discuss with the patient the need, least for now, for insulin. Will give him 20 units of Humalog and then schedule insulin glargine 15 units starting tonight. Depending on how his blood sugars respond it is unclear if that will need to be titrated up or down. Additionally we will have him on prandial Humalog 5 units with meals. * Recheck an A1c Hyponatremia * Patient is awake and alert and I do not feel an insulin drip is necessary at this time. I feel that this probably component of pseudohyponatremia but also may be some delusional component as patient has been having polyuria with his uncontrolled diabetes. * Patient will be on normal saline IV fluids. Elevated creatinine * Creatinine is 1.65 and back in October is 1.34. This does not rise to qualify as acute kidney injury at this time. * IV fluids Chronic conditions * Marfan's disease: Patient has had thoracic as well as vertebral dissections abdomen repaired * CAD: Continue with home medications once those are reconciled * Anemia: Hemoglobin is higher than baseline but per that may be due to hemoconcentration. * Depression: Continue home meds once those are reconciled * Anxiety: On lorazepam * Hypertension: Stable continue with home medications with cells are reconciled. VTE prophylaxis: Not indicated given current observation status Disposition: Patient will be brought under observation status is a feel the patient will respond appropriately to medical therapy and would anticipate discharge on the . Charges/Coding Visit Charges Inpatient E&M: 48889 Init Hosp L2
[2023-07-30 15:00] VITALS: BP 116/75; PULSE 87; RESP 17; TEMP 36.4; O2SAT 97
[2023-07-30] MEDS: Insulin Lispro 100 UNIT/ML INSULN.PEN 20 UNIT SC (15:20)
[2023-07-30 15:25] LABS: Blood Gas Specimen Type VEN; O2 Delivery Device Not entered; SITE Not entered; VBG BASE EXCESS 1 mmol/L (-1.0-3.5); VBG Bicarbonate 26 mmol/L (22-26); VBG PO2 33 mmHg (25-40); VBG SO2 60 % (50-70); VBG TCO2 27 mmol/L (23-33); VBG pCO2 44.8 mmHg (41-51); VBG pH 7.37 (7.32-7.42)
[2023-07-30 15:31] LABS: Bacteria 0 SEEN /hpf (None Seen); Mucous, Urine 0 SEEN /hpf (<or=2+); Red Blood Cells-Urine 0 SEEN /hpf (0-5); Squamous Epithelial Cells - UA 0 SEEN /hpf (0-5); White Blood Cells 0 SEEN /hpf (0-5)
[2023-07-30 15:47] LABS: Color, Urine Yellow (Yellow); Glucose, Dipstick 1000 mg/dl (Normal); Ketone-Dipstick Negative (Negative); Leukocyte Esterase-Dipstick Negative /ul (Negative); Nitrite-Dipstick Negative (Negative); Occult Blood-Urine 10 /ul (Negative); Protein-Dipstick 30 mg/dl (Negative); Specific Gravity, Urine 1.005 (1.002-1.030); Urine Bilirubin Dipstick Negative (Negative); Urine Clarity Clear (Clear); Urine Urobilinogen Normal (Normal); Urine pH 6.5 (5.0 - 8.0)
[2023-07-30 16:04] VITALS: BMI 30.8
[2023-07-30 16:12] VITALS: BP 126/82; PULSE 72; RESP 18; TEMP 36.3; O2SAT 95
[2023-07-30] MEDS: 0.9% Normal Saline (1000mL) 1,000 ML 150 ML IV (17:10)
[2023-07-30] MEDS: 0.9% Saline Lock 10 ML Syringe IV (17:11)
[2023-07-30] MEDS: Acetaminophen 500 MG Tablet 1000 MG PO (17:11)
[2023-07-30] MEDS: oxyCODONE 5 MG Tablet PO ×2 (17:12→21:52)
[2023-07-30] MEDS: Insulin Lispro 100 UNIT/ML INSULN.PEN SC ×2 (17:13→17:14)
[2023-07-30 17:18] LABS: Bedside Glucose 489 mg/dL (74-106)
[2023-07-30] MEDS: QUEtiapine 100 MG Tablet 200 MG PO ×2 (17:26→21:52)
[2023-07-30] MEDS: Insulin Glargine-YFGN 100 UNIT/ML Pen 15 UNIT SC (17:26)
[2023-07-30 18:54] LABS: Bedside Glucose 399 mg/dL (74-106)
[2023-07-30 21:22] LABS: Bedside Glucose 392 mg/dL (74-106)
[2023-07-30] MEDS: Zolpidem Tartrate 5 MG Tablet 10 MG PO (21:53)
[2023-07-30] MEDS: Glucerna Shake 120 ML LIQUID PO (21:59)
[2023-07-30 22:00] VITALS: BP 138/76; PULSE 70; RESP 18; TEMP 36.6; O2SAT 96
[2023-07-31] MEDS: Morphine 2 MG/ML Syringe IV (00:20)
[2023-07-31] MEDS: oxyCODONE 5 MG Tablet PO ×3 (03:42→13:14)
[2023-07-31] MEDS: Acetaminophen 500 MG Tablet 1000 MG PO (03:42)
[2023-07-31 04:00] VITALS: BP 154/89; PULSE 63; RESP 18; TEMP 36.5; O2SAT 96
[2023-07-31 06:05] LABS: Bedside Glucose 342 mg/dL (74-106)
[2023-07-31] MEDS: Insulin Lispro 100 UNIT/ML INSULN.PEN SC ×6 (06:20→16:30)
[2023-07-31 07:54] LABS: Absolute Lymphocyte Count 1.21 X10^3/uL (0.83-4.51); Basophil# 0.03 X10^3/uL; Basophil% 0.7 % (0-1); Eosinophil# 0.24 X10^3/uL; Eosinophils% 5.9 % (0-5); Hematocrit 38.3 % (40-54); Lymphocyte # 1.21 X10^3/ul (0.83-4.51); Lymphocyte % 29.6 % (19-41); Mean Corp Hgb Conc 33.9 g/dL (32-36); Mean Corpuscular Hgb 28.9 pg (27.0-32.0); Mean Corpuscular Volume 85.1 fL (80-94); Mean Platelet Vol. 10.3 fl (6.2-12.0); Monocyte# 0.54 X10^3/uL; Monocyte% 13.2 % (0-10); NRBC Flagged by Analyzer 0 % (0-5); Neutrophil # 2.03 X10^3/uL (2.7-7.7); Neutrophil % 49.6 % (47-70); Platelet Count 183 K/mm3 (150-450); White Blood Count 4.1 K/mm3 (4.4-11.0)
[2023-07-31 08:09] LABS: Hemoglobin A1c 13.6 % (3.8-5.6)
[2023-07-31 08:26] LABS: Anion Gap 7 (5-15); BUN 14 mg/dL (7-18); BUN/Creat Ratio 13.3 RATIO (10-20); Calcium,Total 8.6 mg/dL (8.5-10.1); Chloride 101 mmol/L (98-107); Creatinine, Serum 1.05 mg/dL (0.70-1.30); EST Glomerular Filtration Rate 78 mL/min (>60); Est Glom Filt Rate - Afr Amer 94 mL/min (>60); Estimated Creatinine Clearance 111.55 ml/min; Glucose 328 mg/dL (74-106); Potassium 3.7 mmol/L (3.5-5.1); Sodium Level 133 mmol/L (136-145); Thyroid Stim Hormone (TSH) 4.02 uIU/mL (0.358-3.74)
[2023-07-31 09:02] VITALS: BP 172/97; PULSE 69; RESP 18; TEMP 36.8; O2SAT 95
[2023-07-31] MEDS: QUEtiapine 100 MG Tablet 200 MG PO ×2 (09:10→14:34)
[2023-07-31] MEDS: Influenza Virus Vac Quad 23-24 60 MCG/0.5 ML SYRINGE IM (09:24)
[2023-07-31 12:24] LABS: Bedside Glucose 340 mg/dL (74-106)
[2023-07-31] MEDS: Aspirin E.C. 81 MG Tablet PO (13:11)
[2023-07-31] MEDS: NIFEdipine 60 MG Tablet PO (14:34)
[2023-07-31] MEDS: Glucerna Shake 120 ML LIQUID PO (14:34)
[2023-07-31] MEDS: Carvedilol 25 MG Tablet 50 MG PO (14:34)
[2023-07-31] MEDS: cloNIDine HCl 0.1 MG Tablet PO (14:34)
[2023-07-31 15:05] VITALS: BP 145/99; PULSE 72; RESP 18; TEMP 36.8; O2SAT 98
--- NOTE | 2023-07-31 15:17 | CASEMGMT ---
Met with pt to complete KIMBALL form. KIMBALL form explained to?pt who voiced understanding and signed form. Original form placed in pt?s chart and copy provided to?patient. Zo Dominique, Discharge Planning Asst
--- NOTE | 2023-07-31 15:31 | CASEMGMT ---
Addendum entered by Isabel Nolen 07/31/23 17:05: RAFIQ SPENCE Assessment Face to Face with patient for initial transition planning/care coordination assessment. RAFIQ SPENCE introduced self and role at [facility], pt voices understanding. Pt is A&Ox4 and is resting comfortably in bed and is calm. Care providers, pharmacy, and demographics verified. Admitting dx: DM2 PCP: Grey Specialists: Sis (PM) Preferred Pharmacy: [facility] Insurance: [employer], [facility] A/B Prescription Benefit: Yes LNOK: Annel Cook (W), Clyde Joyce (F) Living Arrangements: Pt lives with his and 26 y/o daughter in a split level home with 5 steps to get to the upper level and 4 steps to get to the lower level. 1 step to enter the home. ADLs/IADLs: helps with IADLs Transportation: DME: CPAP at night. Cane at home but does not use. Pt provided with BGM Rx with supplies and the pt got it filled at [facility]. HHC/SNF: States [facility] HH history x 2 years ago for PT. Denies SNF history or needs Pt?s goal: Home with BGM Plan: Pt refuses the need for HHC or OP therapy. Pt wishes to DC home today with his BGM and supplies with no additional concerns. Pierce Nolen RN, CM Original Note: Rx (Signed by Dr. Hernandez) for BGM and supplies provided to pt at this time.
[2023-07-31] MEDS: Insulin Glargine-YFGN 100 UNIT/ML Pen 15 UNIT SC (16:29)
--- NOTE | 2023-07-31 16:40 | DCINST_ITS ---
Discharge Instructions Diet Discharge Diet: 1800 Calorie Control Diet Activity Discharge Activity: Return to Normal Activity Weight Bearing Status: Full weight bearing Follow Up Care Test Results: Test results from this visit will be discussed in further detail at your follow- up appointment, if applicable. Discharge Plan Admission Admit Date/Time: 07/30/23 14:44 Primary Reason for Your Visit: uncontrolled newly diagnosed Type 2 DM Attending Provider: Isaak Gallagher Primary Care Provider: Rodo Edmonds Consulting Providers: Daquan Miller Instructions Additional Instructions / Restrictions: Check your blood sugars before each meal, you may give yourself additional Humalog insulin per sliding scale: 200?250: 5 units subcu, 251?300: 8 units subcu, 301?350: 12 units subcu Discharge Orders/Prescriptions Prescriptions: New insulin glargine-yfgn 100 unit/mL (3 mL) Insulin Pen 20 unit subcut BID Qty: 15 0RF Rx Instructions: Take with breakfast and supper daily insulin lispro [Humalog KwikPen Insulin] 100 unit/mL Insulin Pen 10 unit subcut TIDCM Qty: 15 0RF Continued acetaminophen 500 MG tablet 1,000 mg PO DAILY PRN (Reason: Pain) ibuprofen 200 MG tablet 400 - 600 mg PO DAILY PRN (Reason: Pain) fluoxetine 10 mg Tablet 20 mg PO DAILY lorazepam 1 mg tablet 1 mg PO DAILY PRN Patient Comments: TAKE 1 TABLET BY MOUTHEONCE DAILY NEEDED FORPANXIETY Xtampza ER 9 mg cap,sprinkl,ER12hr(DONT CRUSH) 18 mg PO BID Rx Instructions: must administer with a meal/food (DME) handicap placcard See Rx Instructions .Route .MEDSUPPLY Qty: 1 0RF Rx Instructions: dx: debility, CHF Lifetime albuterol sulfate 90 mcg/actuation HFA aerosol inhaler 2 puff inhalation Q4H PRN (Reason: shortness of breath or wheezing) Qty: 8.5 3RF aspirin [Adult Aspirin Regimen] 81 mg tablet,delayed release (DR/EC) 81 mg PO QDAY Qty: 90 3RF carvedilol 25 mg tablet 50 mg PO BID Qty: 360 3RF Rx Instructions: Hold for heart less than 60 or systolic blood pressure less than 100 mmHg. clonidine HCl 0.1 mg tablet 0.1 mg PO BID Qty: 180 3RF levothyroxine 25 mcg tablet 25 mcg PO DAILY Qty: 90 3RF rabeprazole [AcipHex] 20 mg tablet,delayed release (DR/EC) 20 mg PO DAILY Qty: 90 3RF nifedipine 60 mg tablet extended release 24hr 60 mg PO DAILY Qty: 30 11RF zolpidem 10 mg tablet 10 mg PO QHS PRN (Reason: sleep) Qty: 30 0RF quetiapine 200 mg tablet 200 mg PO .Four times a day Qty: 120 2RF Referrals / Follow Up: Rodo Edmonds MD [Primary Care Provider] - In 1 Week Disposition Disposition (needs filled in before D/C Order can be placed): Home, Self Care
--- NOTE | 2023-07-31 16:51 | DS.PCM_ITS ---
Providers Date of Admission: 07/30/23 Date of Discharge: 07/31/23 Primary Care Physician: Dr. Rodo Edmonds MD Reason For Visit: DM2 Diagnosis Discharge Diagnosis (1) Diabetes mellitus, new onset: Status: Acute Code(s): E11.9 - Type 2 diabetes mellitus without complications Plan 1. Type 2 diabetes-new onset #2 dehydration #3 essential hypertension #4 coronary artery disease Medications at Discharge Home Medications acetaminophen 500 mg tablet 1,000 mg PO DAILY PRN Pain 05/19/18 ibuprofen 200 mg tablet 400 - 600 mg PO DAILY PRN Pain 05/19/18 handicap placcard #1 ea 03/15/21 albuterol sulfate 90 mcg/actuation aerosol inhaler 2 puff inhalation Q4H PRN shortness of breath or wheezing #8.5 grams 10/03/21 aspirin 81 mg tablet,delayed release (Adult Aspirin Regimen) 81 mg PO QDAY #90 tabs 09/16/22 carvedilol 25 mg tablet 50 mg (2 x 25 mg) PO BID #360 tabs 09/16/22 clonidine HCl 0.1 mg tablet 0.1 mg PO BID blood pressure #180 tabs 09/16/22 fluoxetine 10 mg tablet 20 mg PO DAILY 10/13/22 lorazepam 1 mg tablet 1 mg PO DAILY PRN 10/13/22 levothyroxine 25 mcg tablet 25 mcg PO DAILY #90 tabs 01/16/23 rabeprazole 20 mg tablet,delayed release (AcipHex) 20 mg PO DAILY stomach #90 tabs 02/03/23 nifedipine 60 mg tablet,extended release 24 hr 60 mg PO DAILY BP #30 tabs 02/26/23 zolpidem 10 mg tablet 10 mg PO QHS PRN sleep #30 tabs 04/30/23 quetiapine 200 mg tablet 200 mg PO .Four times a day sleep #120 tabs 05/11/23 oxycodone myristate 9 mg capsule sprinkle extended release 12 hr(DON'T CRUSH) (Xtampza ER) 18 mg PO BID 07/30/23 insulin glargine-yfgn 100 unit/mL (3 mL) subcutaneous pen 20 unit (0.2 mL) subcut BID #15 mL 07/31/23 insulin lispro 100 unit/mL subcutaneous pen (Humalog KwikPen (U-100) Insulin) 10 unit (0.1 mL) subcut TIDCM #15 mL 07/31/23 Hospital Course Operations None Procedures None Summary of Care Provided Minutes Spent on Discharge: 31 Hospital Course: This 52-year-old white male was seen in the emergency room at [facility] with complaints of polydipsia and polyuria as well as diffuse muscle aches and feeling unwell. Patient also stated he had been losing weight over the past few months-around 30 pounds. Lab was obtained in the emergency room, his glucose was elevated at 841, creatinine was elevated at 1.65, and the patient's anion gap was normal. Patient was placed into observation status on MedSurg 3, he was placed on insulin and his blood sugars were monitored. Patient was given IV fluids and his labs improved. Patient was seen by nutritional services regarding his type 2 diabetes. Patient stated that his was a nurse and that she could help administer his injections at home. On 07/31/2023, patient was seen and examined: On examination he appeared in good health and spirits. Vital signs as documented. Skin warm and dry and without overt rashes. Neck without JVD, neck was supple, trachea midline, thyroid was normal. Lungs clear bilaterally, normal air movement was noted. Heart exam notable for regular rhythm, normal sounds and absence of murmurs, rubs or gallops. Abdomen unremarkable and without evidence of organomegaly, masses, or abdominal aortic enlargement. Bowel sounds are present, abdomen is not distended. Extremities nonedematous, no cyanosis was noted, no clubbing was noted. Neuro: Cranial nerves II through XII are grossly intact, no focal motor deficits were noted, sensation to light touch and pinprick intact, motor exam 5/5 throughout. Psych: Patient is alert and oriented x3, he does not appear anxious or depressed, he does not appear agitated. On 07/31/2023, patient was seen and examined and felt to be in stable condition for discharge home. Weight / BMI Weight Weight: 114.94 kg Body Mass Index (BMI) 30.8 ABG / Lab / Microbiology Data 07/31/23 06:40 07/31/23 06:40 Laboratory: Laboratory Results - last 24 hr 07/30/23 16:56: POC Glucose 489 H* 07/30/23 18:34: POC Glucose 399 H 07/30/23 20:56: POC Glucose 392 H 07/31/23 05:46: POC Glucose 342 H 07/31/23 06:40: WBC 4.1 L, RBC 4.50 L, Hgb 13.0, Hct 38.3 L, MCV 85.1, MCH 28.9, MCHC 33.9, RDW Std Deviation 40.0, RDW Coeff of Lalita 13.0, Plt Count 183, MPV 10.3, Immature Gran % (Auto) 1.000 H, Neut % (Auto) 49.6, Lymph % (Auto) 29.6, Emmons % (Auto) 13.2 H, Eos % (Auto) 5.9 H, Baso % (Auto) 0.7, Absolute Neuts (auto) 2.0, Absolute Lymphs (auto) 1.21, Nucleated RBC % 0, Sodium 133 L, Potassium 3.7, Chloride 101, Carbon Dioxide 25.0, Anion Gap 7, BUN 14, Creatinine 1.05, Estim Creat Clear Calc 111.55, Est GFR (MDRD) Af Amer 94, Est GFR (MDRD) Non-Af 78, BUN/Creatinine Ratio 13.3, Glucose 328 H, Hemoglobin A1c 13.6 H, Calcium 8.6, TSH 4.02 H 07/31/23 12:01: POC Glucose 340 H D/C Instructions Discharge Diet: 1800 Calorie Control Diet Weight Bearing Status: Full weight bearing Meaningful Use Info Meaningful Use Diagnoses (Choose all that apply): None applicable Discharge Plan Admission Admit Date/Time: 07/30/23 14:44 Primary Reason for Your Visit: uncontrolled newly diagnosed Type 2 DM Attending Provider: Isaak Gallagher Primary Care Provider: Rodo Edmonds Consulting Providers: Daquan Miller Instructions Additional Instructions / Restrictions: Check your blood sugars before each meal, you may give yourself additional Humalog insulin per sliding scale: 200?250: 5 units subcu, 251?300: 8 units subcu, 301?350: 12 units subcu Discharge Orders/Prescriptions Prescriptions: New insulin glargine-yfgn 100 unit/mL (3 mL) Insulin Pen 20 unit subcut BID Qty: 15 0RF Rx Instructions: Take with breakfast and supper daily insulin lispro [Humalog KwikPen Insulin] 100 unit/mL Insulin Pen 10 unit subcut TIDCM Qty: 15 0RF Continued acetaminophen 500 MG tablet 1,000 mg PO DAILY PRN (Reason: Pain) ibuprofen 200 MG tablet 400 - 600 mg PO DAILY PRN (Reason: Pain) fluoxetine 10 mg Tablet 20 mg PO DAILY lorazepam 1 mg tablet 1 mg PO DAILY PRN Patient Comments: TAKE 1 TABLET BY MOUTHEONCE DAILY NEEDED FORPANXIETY Xtampza ER 9 mg cap,sprinkl,ER12hr(DONT CRUSH) 18 mg PO BID Rx Instructions: must administer with a meal/food (DME) handicap placcard See Rx Instructions .Route .MEDSUPPLY Qty: 1 0RF Rx Instructions: dx: debility, CHF Lifetime albuterol sulfate 90 mcg/actuation HFA aerosol inhaler 2 puff inhalation Q4H PRN (Reason: shortness of breath or wheezing) Qty: 8.5 3RF aspirin [Adult Aspirin Regimen] 81 mg tablet,delayed release (DR/EC) 81 mg PO QDAY Qty: 90 3RF carvedilol 25 mg tablet 50 mg PO BID Qty: 360 3RF Rx Instructions: Hold for heart less than 60 or systolic blood pressure less than 100 mmHg. clonidine HCl 0.1 mg tablet 0.1 mg PO BID Qty: 180 3RF levothyroxine 25 mcg tablet 25 mcg PO DAILY Qty: 90 3RF rabeprazole [AcipHex] 20 mg tablet,delayed release (DR/EC) 20 mg PO DAILY Qty: 90 3RF nifedipine 60 mg tablet extended release 24hr 60 mg PO DAILY Qty: 30 11RF zolpidem 10 mg tablet 10 mg PO QHS PRN (Reason: sleep) Qty: 30 0RF quetiapine 200 mg tablet 200 mg PO .Four times a day Qty: 120 2RF Referrals / Follow Up: Rodo Edmonds MD [Primary Care Provider] - In 1 Week Disposition Disposition (needs filled in before D/C Order can be placed): Home, Self Care Charges/Coding Visit Charges Inpatient E&M: 01427 Disch Hosp >30min
[2023-07-31 16:54] LABS: Bedside Glucose 384 mg/dL (74-106)
[2023-07-31 17:20] VITALS: BP 162/88; PULSE 70; RESP 18; TEMP 37.1; O2SAT 94
== END 2023-07-31 17:36 | disposition home or self-care (01) ==
LOC: ED 15:08 → MS3 15:11
PROVIDERS: Physician Assistant; Emergency Provider Emergency Medicine; PCP Family Medicine; Visit Provider Internal Medicine
DX: E11.65 Type 2 diabetes mellitus with hyperglycemia (principal); I11.0 Hypertensive heart disease with heart failure; I50.9 Heart failure, unspecified; E78.5 Hyperlipidemia, unspecified; Z79.82 Long term (current) use of aspirin; E87.1 Hypo-osmolality and hyponatremia; I25.10 Atherosclerotic heart disease of native coronary artery without angina pectoris; Q87.40 Marfan syndrome, unspecified; G47.33 Obstructive sleep apnea (adult) (pediatric); E86.0 Dehydration; Z79.899 Other long term (current) drug therapy; K21.9 Gastro-esophageal reflux disease without esophagitis; Z79.02 Long term (current) use of antithrombotics/antiplatelets; F41.9 Anxiety disorder, unspecified; F32.A Depression, unspecified; D64.9 Anemia, unspecified; Z23 Encounter for immunization
CPT/HCPCS: 36415; 80048; 81001; 82009; 82803; 82962; 83036; 84443; 85025; 96361; 96374; 96375; 96376; 97802; 99221; 99283; J7030; 90686; A4216; G0378; J2405

== ENCOUNTER 2023-09-17 19:32 | Emergency (ER) | payer OTHER, MEDICARE, SELFPAY ==
[2023-09-17] VITALS (7 sets, daily range): BP systolic 136–154; BP diastolic 82–89; PULSE 57–75; RESP 12–20; TEMP 36.8; O2SAT 91–95; BMI 32.7
--- NOTE | 2023-09-17 19:36 | EKG12_ITS ---
Test Reason : DYSRHYTHMIA Blood Pressure : / mmHG Vent. Rate : 070 BPM Atrial Rate : 070 BPM P-R Int : 236 ms QRS Dur : 128 ms QT Int : 440 ms P-R-T Axes : 001 -02 067 degrees QTc Int : 475 ms Sinus rhythm with 1st degree A-V block Left ventricular hypertrophy with QRS widening and repolarization abnormality ( Jean product ) Abnormal ECG Confirmed by Anton Birmingham ([id number]), manager editorial KELTON JAIN ([id number]) on 09/21/2023 10:22:11 AM Referred By: Confirmed By:Anton Birmingham
--- NOTE | 2023-09-17 19:40 | RAD_ITS ---
STUDY: X-RAY CHEST REASON FOR EXAM: Male, 52 years old. sob TECHNIQUE: Single frontal view of the chest. COMPARISON: CT and chest x-ray October 13, 2022 FINDINGS: Endovascular aortic stent ascending portions of the arch. Sternotomy wires. Surgical clips right axillary region. Sclerosis eighth rib anteriorly. The lungs are clear and expanded. There is no demonstrated pleural abnormality. Normal size heart. Normal mediastinum and patrick. Normal visualized pulmonary arteries. Normal visualized aortic arch and descending thoracic aorta. Normal visualized thoracic spine. Normal visualized ribs, clavicles, and shoulders. There is no demonstrated abnormality of the visualized soft tissue structures of the upper abdomen. RAD/Chest 1 View (Portable) IMPRESSION: No acute disease. Sclerotic lesion eighth rib anteriorly on the right. Postop changes as above. Recommend follow-up CT chest nonemergent leg. Electronically Signed: Ion Maloney MD at 20:15 EDT ,
[2023-09-17 19:53] LABS: Absolute Lymphocyte Count 1.35 X10^3/uL (0.83-4.51); Absolute Neutrophil Count 2.3 X10^3/uL (2.0-7.7); Basophil# 0.03 X10^3/uL; Basophil% 0.7 % (0-1); Eosinophil# 0.17 X10^3/uL; Hematocrit 41.4 % (40-54); Hemoglobin 13.2 g/dL (13.0-16.5); Lymphocyte # 1.35 X10^3/ul (0.83-4.51); Lymphocyte % 31.6 % (19-41); Mean Corp Hgb Conc 31.9 g/dL (32-36); Mean Corpuscular Volume 87.7 fL (80-94); Mean Platelet Vol. 9.6 fl (6.2-12.0); Monocyte# 0.38 X10^3/uL; Monocyte% 8.9 % (0-10); NRBC Flagged by Analyzer 0 % (0-5); Neutrophil # 2.28 X10^3/uL (2.7-7.7); Neutrophil % 53.4 % (47-70); Platelet Count 216 K/mm3 (150-450); RBC Distribution Width CV 13.4 % (11.6-14.6); RBC Distribution Width SD 43.3 fl (35.1-43.9); Red Blood Count 4.72 M/mm3 (4.6-6.2); White Blood Count 4.3 K/mm3 (4.4-11.0)
[2023-09-17 19:54] LABS: POSITIVE COUNT NO; POSITIVE DIFFERENTIAL NO; POSITIVE MORPHOLOGY NO
--- NOTE | 2023-09-17 19:55 | RAD_ITS ---
STUDY: X-RAY CHEST REASON FOR EXAM: Male, 52 years old. Cough, shortness of breath. TECHNIQUE: One view lateral COMPARISON: 7:45 PM today frontal projection FINDINGS: The lungs are clear and expanded. There is no demonstrated pleural abnormality. Normal size heart. Normal mediastinum and patrick. Normal visualized pulmonary arteries. Normal visualized aortic arch and descending thoracic aorta. Normal visualized thoracic spine. Normal visualized ribs, clavicles, and shoulders. There is no demonstrated abnormality of the visualized soft tissue structures of the upper abdomen. RAD/Chest 1 View IMPRESSION: Previously noted sclerotic lesion eighth rib on the right not well demonstrated. Recommend comparison or follow-up. Normal x-ray examination of the chest. Pending Final Proof Editing
--- NOTE | 2023-09-17 19:57 | EDS_ITS ---
HPI History of Present Illness Chief Complaint: Shortness of Breath Informant: patient Narrative Narrative: 52-year-old male states he feels like he may be getting pneumonia. Cough and shortness of breath worsening over the past 3 days. Also chest discomfort and heaviness, substernal across his chest nonradiating, nonpleuritic. No leg pain or swelling. No syncope or near syncope. No fevers or chills. He is coughing up sputum that looks yellow no blood. Several sick contacts lately, one of them a child that was diagnosed with pneumonia today, the other has had a chronic cough for a month. [facility] Medical History Bipolar disorder Anxiety Hypothyroidism Diabetes Kidney disease Non-smoker BiPAP (biphasic positive airway pressure) dependence Restrictive lung disease Anemia Depression History of aortic dissection Marfan syndrome CHF (congestive heart failure) Infection of external auditory canal NEO (obstructive sleep apnea) Hypoxia Apnea, sleep Abnormal stress test Uncontrolled hypertension Acute maxillary sinusitis, unspecified Nonobstructive atherosclerosis of coronary artery Hyperkalemia GERD (gastroesophageal reflux disease) Hypertensive urgency Dissection of vertebral artery Hyperlipidemia Dissecting aneurysm of ascending aorta Essential (primary) hypertension (05/20/18) Marfans syndrome Home Medications ?Medication ?Instructions ?Recorded ?Last Taken ?Type acetaminophen 500 mg tablet 1,000 mg PO DAILY PRN Pain 05/19/18 05/19/18 History ibuprofen 200 mg tablet 400 - 600 mg PO DAILY PRN Pain 05/19/18 05/19/18 History handicap placcard #1 ea 03/15/21 Unknown Rx albuterol sulfate 90 mcg/actuation 2 puff inhalation Q4H PRN 10/03/21 Unknown Rx aerosol inhaler shortness of breath or wheezing #8.5 grams aspirin 81 mg tablet,delayed 81 mg PO QDAY #90 tabs 09/16/22 Unknown Rx release (Adult Aspirin Regimen) carvedilol 25 mg tablet 50 mg (2 x 25 mg) PO BID #360 tabs 09/16/22 Unknown Rx clonidine HCl 0.1 mg tablet 0.1 mg PO BID blood pressure #180 09/16/22 Unknown Rx tabs fluoxetine 10 mg tablet 20 mg PO DAILY 10/13/22 Unknown History lorazepam 1 mg tablet 1 mg PO DAILY PRN 10/13/22 Unknown History levothyroxine 25 mcg tablet 25 mcg PO DAILY #90 tabs 01/16/23 Unknown Rx rabeprazole 20 mg tablet,delayed 20 mg PO DAILY stomach #90 tabs 02/03/23 Unknown Rx release (AcipHex) nifedipine 60 mg tablet,extended 60 mg PO DAILY BP #30 tabs 02/26/23 Unknown Rx release 24 hr zolpidem 10 mg tablet 10 mg PO QHS PRN sleep #30 tabs 04/30/23 Unknown Rx quetiapine 200 mg tablet 200 mg PO .Four times a day sleep 05/11/23 Unknown Rx #120 tabs oxycodone myristate 9 mg capsule 18 mg PO BID 07/30/23 Unknown History sprinkle extended release 12 hr(DON'T CRUSH) (Xtampza ER) insulin glargine-yfgn 100 unit/mL 20 unit (0.2 mL) subcut BID #15 mL 07/31/23 Unknown Rx (3 mL) subcutaneous pen insulin lispro 100 unit/mL 10 unit (0.1 mL) subcut TIDCM #15 07/31/23 Unknown Rx subcutaneous pen (Humalog KwikPen mL (U-100) Insulin) pen needle, diabetic 31 gauge x #100 ea 09/02/23 Unknown Rx /16 (Unifine Pentips Plus) albuterol sulfate 90 mcg/actuation 1 - 2 puff inhalation Q4H PRN PRN 09/17/23 Unknown Rx aerosol inhaler (Ventolin HFA) Wheezing ##1 azithromycin 250 mg tablet 250 mg PO DAILY #6 TABLETS 09/17/23 Unknown Rx Allergy/AdvReac Type Severity Reaction Status Date / Time Quinolones Allergy Unknown PT UNSURE Verified 07/30/23 15:02 OF REACTION ciprofloxacin (From Cipro) Allergy Rash Verified 07/30/23 15:02 ciprofloxacin HCl (From Allergy Rash Verified 07/30/23 15:02 Cipro) sulfamethoxazole (From Allergy Rash Verified 07/30/23 15:02 Bactrim) tramadol Allergy Itching Verified 07/30/23 15:02 trimethoprim (From Bactrim) Allergy Rash Verified 07/30/23 15:02 Family History Son Marfans syndrome Daughter Marfans syndrome Father Hypertension Grandfather Heart disease Myocardial infarction CVA (cerebral vascular accident) Grandmother Heart disease Surgical History History of open reduction and internal fixation (ORIF) procedure (2016) History of left heart catheterization (12/14/20) History of tonsillectomy History of surgical fusion joint History of hand surgery History of mitral valve repair (03/08/11) H/O coronary artery bypass surgery (03/08/11) Hx of ascending aorta replacement (03/08/11) Social History household members: spouse Smoking Status: Never smoker alcohol intake: current alcohol intake frequency: a few times a month substance use type: does not use ROS ROS ED Constitutional Constitutional ED: Denies chills or fever(s) Eyes Eyes: Denies change in vision or diplopia ENT ENT ED: Denies rhinorrhea or sore throat Cardiovascular Cardiovascular: Reports chest pain, orthopnea and radiating jaw, neck or arm pain; Denies palpitations or pedal edema Respiratory/Chest Respiratory/Chest: Reports cough, dyspnea, dyspnea on exertion, orthopnea and sputum Gastrointestinal Gastrointestinal: Denies abdominal pain, diarrhea, nausea or vomiting Genitourinary Genitourinary ED: Denies dysuria or hematuria Musculoskeletal Musculoskeletal: Denies back pain or neck pain Integumentary Denies abscess or rash Neurologic Neurologic: Denies headache(s), paresthesias or weakness Psychiatric Psychiatric: Denies suicidal ideation or suicidal thoughts EXAM Physical Exam Const Vital Signs: 09/17/23 19:33 09/17/23 20:00 09/17/23 20:00 Temperature 98.3 F Temperature Source Temporal Pulse Rate 75 Respiratory Rate 18 17 Respiratory Effort Respiratory Depth Respiratory Pattern Blood Pressure 136/82 H Blood Pressure Mean 100 Pulse Ox 93 95 94 Oxygen Delivery Method Room Air Room Air Room Air 09/17/23 20:05 09/17/23 20:33 09/17/23 21:33 Temperature Temperature Source Pulse Rate 65 60 Respiratory Rate 20 H 16 Respiratory Effort Short of Breath Respiratory Depth Normal Respiratory Pattern Normal Normal Blood Pressure 154/89 H Blood Pressure Mean 110 Pulse Ox 91 Oxygen Delivery Method Room Air Room Air 09/17/23 23:00 Temperature Temperature Source Pulse Rate 57 L Respiratory Rate 12 Respiratory Effort Respiratory Depth Respiratory Pattern Blood Pressure 154/84 H Blood Pressure Mean 107 Pulse Ox 92 Oxygen Delivery Method Room Air Positive well nourished and well developed General Appearance ED: well developed and NAD HEENT Reports moist mucous membranes normocephalic and atraumatic Eyes PERRL and EOMs intact bilaterally Neck full ROM, supple, no meningeal signs and no JVD Resp normal respiratory effort Resp Narrative: Few Rales and expiratory wheezes both anterior bases only otherwise clear Cardio regular rate, regular rhythm and no murmurs GI non-tender and non-distended Auscultation: normoactive bowel sounds Palpation: soft Back/Spine no CVA tenderness General Back: other FROM Extremity normal to inspection General Extremety ED: Negative for edema, pulses abnormal or tenderness General Extremity: Negative for edema or pulses abnormal Neuro oriented x3, CN's II-XII intact bilaterally and no sensory deficits noted Sensorium / Orientation: awake and alert Motor Exam: strength 5/5 throughout Psych mental status grossly normal Skin no rashes or lesions noted and no wounds MDM MDM MDM Narrative Medical decision making narrative: EKG is normal, this sounds more pulmonary than cardiac. He has a history of Marfan's disease. He had a history of aortic dissection and an elephant trunk graft procedure, he agrees this does not feel like that but I do not want this to go back into that. He has equal bilateral radial pulses I do not think he has an acute aortic dissection. Nursing ordered a stat portable chest x-ray prior to my evaluation, it shows a small nodule in right lower lobe but on my interpretation no other acute abnormality so ordering a lateral. That 1 view also shows no acute infiltrate on my interpretation. Radiology is in agreement on both of these. The rest of his workup is unremarkable, he has relatively low white blood count with no left shift, normal BNP and normal troponin, and he states his chest heaviness is feeling a little improved after duo nebulizer treatment but he still asking for something for his chest discomfort. I do not think this is cardiac and I do not think he needs nitroglycerin. I am going to give him a dose of Toradol and I am happy to put him on a course of Zithromax to cover him for atypicals given the fact that he is having abnormal breath sounds and does not have a history of COPD. However, at discharge he did his oxygen levels down to 89-90% so I had nurses ambulate him, he was a little dyspneic, it did not limit him, but his saturations dipped down to 87% on room air, coming back up at rest. Therefore sent him for CT of the chest to look for an occult pneumonia I do not think we have to evaluate him for PE given his acute productive cough and lack of risk factors. I reviewed the CT images and the result which I agree with, it is negative for pneumonia. Therefore and giving him a couple more albuterol treatments and we will re-ambulate him. Patient states his airways are opened up some. He is really focusing on getting narcotic pain medication for his pain, turns out he has chronic pain and is on a large dose of long-acting oxycodone at home, he has that he just has not had a chance to take it because he has been here at the hospital, he sees Dr. Alegre for pain management. I ordered him a [place] before I knew that. His oxygen saturations are 90-92% on room air right now, he will dip down to 89% for about 5 seconds. I think he is safe to go home and not exert himself, take the antibiotics prescribed, albuterol inhaler as needed and follow-up with his doctor as an outpatient. I do not think he needs a PE study right now. Lab Data Attestation: I reviewed the patient's lab results. Labs: Laboratory Results - last 24 hr 09/17/23 19:40 WBC 4.3 L RBC 4.72 Hgb 13.2 Hct 41.4 MCV 87.7 MCH 28.0 MCHC 31.9 L RDW Std Deviation 43.3 RDW Coeff of Lalita 13.4 Plt Count 216 MPV 9.6 Immature Gran % (Auto) 1.400 H Neut % (Auto) 53.4 Lymph % (Auto) 31.6 [place] % (Auto) 8.9 Eos % (Auto) 4.0 Baso % (Auto) 0.7 Absolute Neuts (auto) 2.3 Absolute Lymphs (auto) 1.35 Nucleated RBC % 0 Sodium 136 Potassium 3.9 Chloride 103 Carbon Dioxide 28.0 Anion Gap 5 BUN 19 H Creatinine 1.12 Estim Creat Clear Calc 107.59 Est GFR (MDRD) Af Amer 88 Est GFR (MDRD) Non-Af 72 BUN/Creatinine Ratio 17.0 Glucose 164 H Calcium 9.0 Troponin I High Sens 12 B-Natriuretic Peptide 76.0 Radiography Diagnostic Testing: Clinical Impression(s) from Imaging Studies Chest X-Ray 09/17/23 19:40 IMPRESSION: No acute disease. Sclerotic lesion eighth rib anteriorly on the right. Postop changes as above. Recommend follow-up CT chest nonemergent leg. Electronically Signed: Ion Maloney MD at 20:15 EDT Reading Location ID and State: [facility] / [place] Tel , Service support , Chest X-Ray 09/17/23 19:55 IMPRESSION: Previously noted sclerotic lesion eighth rib on the right not well demonstrated. Recommend comparison or follow-up. Normal x-ray examination of the chest. Pending Final Proof Editing ADDENDUM: 09/17/232140 IMPRESSION: undefined Chest CT 09/17/23 22:20 IMPRESSION: 4.4 cm aneurysm aortic arch unchanged. Endovascular stent unchanged in position. Cardiomegaly and coronary artery disease. Electronically Signed: Ion Maloney MD at 22:43 EDT , Rhythm Strip Rhythm Strip: Sinus Rhythm Rate: 70 Ectopy: None EKG Initial EKG: Attestation: I personally reviewed and interpreted this EKG as follows: Interpretation: Sinus Rhythm, No Acute Injury Pattern and Non-Specific ST Changes (Laterally) Prior EKG tracings: available for review Prior: Unchanged Discharge Plan Triage Chief Complaint: Shortness of Breath ED Provider: Geovani Fernandez Dx/Rx/DC Orders Clinical Impression: Acute wheezy bronchitis, Non-cardiac chest pain Instructions: ED Bronchitis with Wheezing (Adult) Prescriptions: New azithromycin 250 mg tablet 250 mg PO DAILY Qty: 6 0RF Rx Instructions: take 2 tabs on first dose albuterol sulfate [Ventolin HFA] 90 mcg/actuation HFA aerosol inhaler 1 - 2 puff inhalation Q4H PRN PRN (Reason: Wheezing) Qty: 1 0RF No Action acetaminophen 500 MG tablet 1,000 mg PO DAILY PRN (Reason: Pain) ibuprofen 200 MG tablet 400 - 600 mg PO DAILY PRN (Reason: Pain) fluoxetine 10 mg Tablet 20 mg PO DAILY lorazepam 1 mg tablet 1 mg PO DAILY PRN Patient Comments: TAKE 1 TABLET BY MOUTHEONCE DAILY NEEDED FORPANXIETY Xtampza ER 9 mg cap,sprinkl,ER12hr(DONT CRUSH) 18 mg PO BID Rx Instructions: must administer with a meal/food insulin glargine-yfgn 100 unit/mL (3 mL) Insulin Pen 20 unit subcut BID Qty: 15 0RF Rx Instructions: Take with breakfast and supper daily insulin lispro [Humalog KwikPen Insulin] 100 unit/mL Insulin Pen 10 unit subcut TIDCM Qty: 15 0RF (DME) handicap placcard See Rx Instructions .Route .MEDSUPPLY Qty: 1 0RF Rx Instructions: dx: debility, CHF Lifetime albuterol sulfate 90 mcg/actuation HFA aerosol inhaler 2 puff inhalation Q4H PRN (Reason: shortness of breath or wheezing) Qty: 8.5 3RF aspirin [Adult Aspirin Regimen] 81 mg tablet,delayed release (DR/EC) 81 mg PO QDAY Qty: 90 3RF carvedilol 25 mg tablet 50 mg PO BID Qty: 360 3RF Rx Instructions: Hold for heart less than 60 or systolic blood pressure less than 100 mmHg. clonidine HCl 0.1 mg tablet 0.1 mg PO BID Qty: 180 3RF levothyroxine 25 mcg tablet 25 mcg PO DAILY Qty: 90 3RF rabeprazole [AcipHex] 20 mg tablet,delayed release (DR/EC) 20 mg PO DAILY Qty: 90 3RF nifedipine 60 mg tablet extended release 24hr 60 mg PO DAILY Qty: 30 11RF zolpidem 10 mg tablet 10 mg PO QHS PRN (Reason: sleep) Qty: 30 0RF quetiapine 200 mg tablet 200 mg PO .Four times a day Qty: 120 2RF (DME) pen needle, diabetic [Unifine Pentips Plus] 31 gauge x 5/16 needle See Rx Instructions .Route Qty: 100 6RF Rx Instructions: As directed Primary Care Provider: Rodo Edmonds Referrals: Rodo Edmonds MD [Primary Care Provider] - 3-5 Days Print Language: Korean Disposition Disposition: Home, Self Care
[2023-09-17] MEDS: Ipratropium/Albuterol Sulfate 3 ML AMPUL.NEB INHALATION (20:05)
[2023-09-17 20:36] LABS: Anion Gap 5 (5-15); BUN 19 mg/dL (7-18); Chloride 103 mmol/L (98-107); Creatinine, Serum 1.12 mg/dL (0.70-1.30); EST Glomerular Filtration Rate 72 mL/min (>60); Est Glom Filt Rate - Afr Amer 88 mL/min (>60); Estimated Creatinine Clearance 107.59 ml/min; Glucose 164 mg/dL (74-106); Potassium 3.9 mmol/L (3.5-5.1); Sodium Level 136 mmol/L (136-145); Troponin-I HS 12 pg/mL (3.0-78.0)
[2023-09-17] MEDS: Ketorolac 15 MG/ML Vial IV (22:03)
--- NOTE | 2023-09-17 22:20 | CT_ITS ---
INDICATION: sob, cough, hypoxic, nml CXR EXAMINATION: CT CHEST WITHOUT CONTRAST - CT Chest W/O Contrast Injection TECHNIQUE: Helically acquired images were obtained of the chest. A radiation dose optimization technique was used for this scan. IV Contrast dosage and agent: None. COMPARISON: Chest x-ray from today.. FINDINGS: LUNGS, PLEURA AND LARGE AIRWAYS: No masses, consolidation, or edema. No pleural effusion or thickening. No pneumothorax. THYROID: No thyroid lesions. HEART AND PERICARDIUM: Cardiomegaly. No pericardial effusion. CORONARY ARTERIES: Coronary artery calcification present. VESSELS: Endovascular stent noted within the aortic arch and descending proximal thoracic aorta. Fusiform 4.4 cm aneurysm proximal stent at the arch. This appears unchanged. MEDIASTINUM AND CLAUDETTE: No mediastinal or hilar adenopathy. Esophagus is unremarkable. No hiatal hernia. UPPER ABDOMEN: No acute pathology. BONES: No suspicious lytic or blastic abnormality. CT/Chest without Contrast IMPRESSION: 4.4 cm aneurysm aortic arch unchanged. Endovascular stent unchanged in position. Cardiomegaly and coronary artery disease. Electronically Signed: Ion Maloney MD at 22:43 EDT Reading Location ID and State: [facility] / [place] Tel , Service support ,
[2023-09-17] MEDS: Albuterol 2.5 MG/3 ML VIAL.NEB. INHALATION ×2 (23:28→23:33)
--- NOTE | 2023-09-17 23:47 | CPS ---
[2328] x2 Albuterol given to pt. in ER. Pre-tx: HR=62, RR=20 with diminished breath sounds and left lower lobe fine crackles. Post-tx: HR=66, RR=16 with clearer lung sounds with auscultation. Left lower lobe fine crackles are no longer there.
[2023-09-18] MEDS: HYDROcodone Bitartrate/Apap 5/325 Tablet PO (00:03)
[2023-09-18 00:12] VITALS: BP 135/75; PULSE 65; RESP 18; TEMP 36.1; O2SAT 94
== END 2023-09-18 00:14 | disposition home or self-care (01) ==
PROVIDERS: Emergency Provider Emergency Medicine; PCP Family Medicine; Visit Provider Emergency Medicine
DX: J20.9 Acute bronchitis, unspecified (principal); I50.9 Heart failure, unspecified; R07.89 Other chest pain; G47.33 Obstructive sleep apnea (adult) (pediatric); I25.10 Atherosclerotic heart disease of native coronary artery without angina pectoris; Z95.1 Presence of aortocoronary bypass graft
CPT/HCPCS: 71045; 71250; 80048; 83880; 84484; 85025; 87631; 93005; 94640; 94760; 96374; 99282; A4216

== ENCOUNTER → 2023-12-22 | Outpatient (CLI) | payer OTHER, MEDICARE, SELFPAY ==
[2023-12-22 12:49] LABS: Amphetamine Urine VISTA NEGATIVE (<1000 ng/mL); Barbiturate Urine VISTA NEGATIVE (< 200 ng/mL); Benzodiazepine Urine VISTA NEGATIVE (< 200 ng/mL); Cocaine Urine VISTA NEGATIVE (< 300 ng/mL); Ecstacy Urine VISTA NEGATIVE (< 500 ng/mL); Methadone Urine VISTA NEGATIVE (< 300 ng/mL); PCP Urine VISTA NEGATIVE (< 25 ng/mL); THC Urine VISTA NEGATIVE (< 50 ng/mL); Vista UDS pH Range 7
== END | disposition home or self-care (01) ==
LOC: LAB 11:58
PROVIDERS: PCP Family Medicine; Referring Provider Anesthesiology Pain Medicine; Visit Provider Anesthesiology Pain Medicine
DX: F11.20 Opioid dependence, uncomplicated (principal)
CPT/HCPCS: 80307

== ENCOUNTER → 2024-06-07 | Outpatient (CLI) | payer OTHER, MEDICARE, SELFPAY ==
--- NOTE | 2024-06-07 15:00 | ECHOCS_ITS ---
Reason For Study: Preop Procedure This was a 2D Doppler, Color Flow transthoracic echocardiogram. Contrast injection was performed. Exam performed in department. Left Ventricle Mild concentric left ventricular hypertrophy. Mildly dilated left ventricle. Left ventricular systolic function is normal. The left ventricular ejection fraction is 60 %. Stage 1 diastolic dysfunction. Infero-Basal: Severely Hypokinetic. Right Ventricle Normal RV size. Normal systolic function. Atria Normal left atrium. Normal right atrium. Mitral Valve Normal mitral valve. Mild (1+) eccentric mitral valve insufficiency. Tricuspid Valve Normal tricuspid valve. Mild (1+) tricuspid valve insufficiency. Pulmonary artery systolic pressure is 33 mmHg. Aortic Valve Bioprosthetic aortic valve. Pulmonic Valve Normal pulmonic valve. Great Vessels Mild to moderately dilated aortic root. Status post aortic arch reconstruction with elephant arch. Pericardium/Pleural No pericardial effusion. Medication Diluted definity 2ml given slow IV push to enhance endocardial definition. MMode/2D Measurements & Calculations LVIDd: 6.0 cm IVSd: 1.2 cm LVOT diam: 2.8 cm LVIDs: 3.9 cm LVPWd: 1.2 cm RVDd: 2.7 cm FS: 34.9 % LVOT area: 6.4 cm2 _ Ao root diam: 4.1 cm asc Aorta Diam: 4.1 cm LAV(MOD-bp): 53.2 ml LAV(MOD-bp) Indexed: 20.5 ml/m2 LAV(MOD-sp2): 58.7 ml LAV(MOD-sp4): 44.3 ml _ SV(MOD-sp4): 77.5 ml SV(sp4-el): 78.3 ml LVAd ap4: 39.9 cm2 LVLd ap4: 9.5 cm SI(MOD-sp4): 29.9 ml/m2 EDV(MOD-sp4): 139.4 ml EDV(sp4-el): 141.9 ml LVAs ap4: 24.3 cm2 LVLs ap4: 7.9 cm ESV(MOD-sp4): 61.9 ml ESV(sp4-el): 63.6 ml EF(MOD-sp4): 55.6 % EF(sp4-el): 55.2 % _ LA A4 area: 16.8 cm2 LA dimension(2D): 4.9 cm RA A4 area: 17.4 cm2 Time Measurements MV dec time: 0.25 sec Doppler Measurements & Calculations MV E max tu: 51.1 cm/sec Lat Peak E' Tu: 10.5 cm/sec Med Peak E' Tu: 7.3 cm/sec MV A max tu: 63.6 cm/sec E/E' lat: 4.9 E/E' med: 7.0 MV E/A: 0.80 _ MV dec slope: 206.9 cm/sec2 Ao V2 max: 156.0 cm/sec LV V1 max: 116.2 cm/sec Ao max P.7 mmHg LV V1 max P.4 mmHg Ao V2 mean: 105.9 cm/sec LV V1 mean P.2 mmHg Ao mean P.0 mmHg LV V1 mean: 85.4 cm/sec Ao V2 VTI: 28.2 cm LV V1 VTI: 23.7 cm AV (velocity ratio): 0.84 BECKA(I,D): 5.4 cm2 BECKA(V,D): 4.8 cm2 _ SV(LVOT): 151.3 ml PA V2 max: 110.2 cm/sec PI end-d tu: 103.2 cm/sec _ TR max tu: 273.9 cm/sec TR max P.0 mmHg ECHO/Echo Complete W/ Contrast Interpretation Summary Left ventricular systolic function is normal. The left ventricular ejection fraction is 60 %. Mild concentric left ventricular hypertrophy. Mildly dilated left ventricle. Stage 1 diastolic dysfunction. Contrast injection was performed. Ordering Physician: Nicolette Hernández Referring Physician: Rodo Edmonds Performed By: Felisa Jacobson RDCS, RVT
== END | disposition home or self-care (01) ==
LOC: CVS 14:59
PROVIDERS: PCP Family Medicine; Referring Provider Physician Assistant Medical; Visit Provider Physician Assistant Medical
DX: Z01.810 Encounter for preprocedural cardiovascular examination (principal); R06.09 Other forms of dyspnea
CPT/HCPCS: 93306; Q9957; A4216; C8929

== ENCOUNTER 2024-06-10 08:46 | Day surgery (SDC) | payer OTHER, MEDICARE, SELFPAY ==
--- NOTE | 2024-06-06 15:02 | PAT.ANESEVAL ---
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 When Was Last Pacemaker Check QUESTION #4 FULL TEXT: You/Your Family Experience fever (hyperthermia) with Anesthesia Last Oral Intake Last Oral intake: Last Oral Intake NPO since Meds taken in AM with sips of water? 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 Female No 06/06/24 12:59 HX of Motion Sickness No 06/06/24 12:59 HX of N/V After Surgery No 06/06/24 12:59 Non-Smoker Yes 06/06/24 12:59 Duration of Surgery greater Yes 06/06/24 12:59 than 60 minutes Number of Risk Factors 2 06/06/24 12:59 PONV Score Moderate Risk 06/06/24 12:59 Height & Weight Height & Weight: Anesthesia: Height & Weight Height 6 ft 4 in 09/17/23 19:33 Respiratory Assessment Respiratory Assessment - carpet finishing supervisor: Respiratory Tract Infection Hx - 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 Has anyone observed you stop breathing during sleep? STOP Results Positive 06/06/24 12:59 QUESTION #5 FULL TEXT : Do you snore loudly (louder than talking or can be heard through closed doors)? 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 Specify any problems Hx of Preganancy in last 3 N/A 06/06/24 12:59 Months Nurse Filling Out Transfusion DSCHRIBER 06/06/24 12:59 & Questions: Date: 06/06/24 06/06/24 12:59 Time: 13:02 06/06/24 12:59 Patient unable to answer at this time (ie. 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: /Reproductive Hx- carpet finishing supervisor Hx Now No 06/06/24 12:59 Gestational Age (in weeks): EDC: Hx Hx Para Hx Section SAB No 06/06/24 12:59 PFSH Medical History (Updated 06/06/24 @ 13:14 by Sandy Luevano) Wears glasses Broken teeth Thyroid disease Insulin dependent diabetes mellitus Dietary restriction Leg cramps History of pain when walking History of edema History of echocardiogram Cardiology follow-up encounter Pain Bipolar disorder Anxiety Hypothyroidism Non-smoker BiPAP (biphasic positive airway pressure) dependence Restrictive lung disease Anemia Depression History of aortic dissection Marfan syndrome CHF (congestive heart failure) Infection of external auditory canal Abnormal stress test Uncontrolled hypertension Acute maxillary sinusitis, unspecified Nonobstructive atherosclerosis of coronary artery Hyperkalemia GERD (gastroesophageal reflux disease) Dissection of vertebral artery Hyperlipidemia Dissecting aneurysm of ascending aorta Essential (primary) hypertension (05/20/18) Marfans syndrome Home Medications ?Medication ?Instructions ?Recorded ?Last Taken ?Type acetaminophen 500 mg tablet 1,000 mg PO DAILY PRN Pain 05/19/18 05/19/18 History ibuprofen 200 mg tablet 400 - 600 mg PO DAILY PRN Pain 05/19/18 05/19/18 History handicap placcard #1 ea 03/15/21 Unknown Rx albuterol sulfate 90 mcg/actuation 2 puff inhalation Q4H PRN 10/03/21 Unknown Rx aerosol inhaler shortness of breath or wheezing #8.5 grams fluoxetine 10 mg tablet 20 mg PO QHS 10/13/22 Unknown History lorazepam 1 mg tablet 1 mg PO DAILY PRN 10/13/22 Unknown History levothyroxine 25 mcg tablet 25 mcg PO DAILY #90 tabs 01/16/23 Unknown Rx zolpidem 10 mg tablet 10 mg PO QHS PRN sleep #30 tabs 04/30/23 Unknown Rx oxycodone myristate 9 mg capsule 27 mg PO BID 07/30/23 Unknown History sprinkle extended release 12 hr(DON'T CRUSH) (Xtampza ER) clonidine HCl 0.1 mg tablet 0.1 mg PO BID blood pressure #180 09/25/23 Unknown Rx tabs carvedilol 25 mg tablet 25 mg PO BID #180 tabs 11/04/23 Unknown Rx aspirin 81 mg tablet,delayed 81 mg PO QDAY #90 tabs 01/06/24 Unknown Rx release (Adult Aspirin Regimen) rabeprazole 20 mg tablet,delayed 20 mg PO DAILY stomach #90 tabs 02/12/24 Unknown Rx release (AcipHex) nifedipine 60 mg tablet,extended 60 mg PO DAILY BP #90 tabs 03/21/24 Unknown Rx release 24 hr pen needle, diabetic 31 gauge x #100 ea 04/15/24 Unknown Rx 09/16 (Unifine Pentips Plus) amoxicillin 500 mg capsule 500 mg PO TID DENTAL ISSUE 06/06/24 Unknown History insulin glargine 100 unit/mL (3 25 unit subcut BID 06/06/24 Unknown History mL) subcutaneous pen, sensor insulin lispro 100 unit/mL 15 unit subcut BID 06/06/24 Unknown History subcutaneous pen (Humalog KwikPen (U-100) Insulin) lidocaine 5 % topical patch 1 patch topical DAILY PRN PRN pain 06/06/24 Unknown History quetiapine 200 mg tablet 400 mg PO BID sleep 06/06/24 Unknown History Allergy/AdvReac Type Severity Reaction Status Date / Time Quinolones Allergy Unknown PT UNSURE Verified 06/06/24 12:52 OF REACTION ciprofloxacin (From Cipro) Allergy Rash Verified 06/06/24 12:52 ciprofloxacin HCl (From Allergy Rash Verified 06/06/24 12:52 Cipro) sulfamethoxazole (From Allergy Rash Verified 06/06/24 12:52 Bactrim) tramadol Allergy Itching Verified 06/06/24 12:52 trimethoprim (From Bactrim) Allergy Rash Verified 06/06/24 12:52 Family History Son Marfans syndrome Daughter Marfans syndrome Father Hypertension Grandfather Heart disease Myocardial infarction CVA (cerebral vascular accident) Grandmother Heart disease Surgical History (Updated 06/06/24 @ 13:14 by Sandy Luevano) Hx of hammer toe correction History of open reduction and internal fixation (ORIF) procedure (2016) History of left heart catheterization (12/14/20) History of tonsillectomy History of mitral valve repair (03/08/11) H/O coronary artery bypass surgery (03/08/11) Hx of ascending aorta replacement (03/08/11) Social History household members: spouse Smoking Status: Former smoker alcohol intake: current alcohol intake frequency: a few times a month substance use type: does not use Audit: Pertinent Findings Pertinent Findings EKG Perinent findings: 09/17/2023 sinus rhythm first-degree AV block LVH with QRS widening and repull abnormality Stress test pertinent findings: 12/12/2020 postarrest myocardial perfusion changes concerning basal and mid inferior segments Echo (EF%) pertinent findings: 10/14/2022 EF 70% Heart catheterization pertinent findings: 12/24/2020 coronary artery disease with worsening angina patent 1 1 bypass graft noted has other coronary artery disease Consult pertinent findings: Cardiology 01/18/2021 uncontrolled hypertension medications were adjusted history of a ascending aorta replacement history of coronary artery bypass surgery resolved CABG SVG to RCA x 1 stable Recommendation Anesthesia Recommendation Anesthesia recommendation: OPTIMIZED for anesthesia
[2024-06-10] VITALS (9 sets, daily range): BP systolic 110–180; BP diastolic 47–93; PULSE 58–81; RESP 16–20; TEMP 36.2–36.6; O2SAT 89–96; BMI 34.6
--- NOTE | 2024-06-10 08:30 | PCM.PRE.AN2 ---
ASA Classification* ASA Classification ASA Classification: 3 Assessment & Plan Anesthesia* Anesthesia Assessment Anesthesia Assessment: Discussed sedation and/or anesthesia options, risks, benefits, and alternatives with patient/parents/legal guardian/POA. Questions invited. The patient/parents/legal guardian/POA seems to understand and agrees to proceed with anesthesia plan. Reviewed the physical assessment, medical history, allergy history and patient home medications list prior to surgery/procedure/anesthetic and documented any changes. Performed airway and anesthesia risk assessments. Anesthesia Type Anesthesia Type: General Anesthesia Focused Assessment* Airway Assessment Mouth opens: >3 cm Mallampati Score: II Focused Labs Anesthesia Preop lab: CBC WBC 4.3 K/mm3 (4.4-11.0) L 09/17/23 19:40 09/17/23 RBC 4.72 M/mm3 (4.6-6.2) 09/17/23 19:40 09/17/23 Hgb 13.2 g/dL (13.0-16.5) 09/17/23 19:40 09/17/23 Hct 41.4 % (40-54) 09/17/23 19:40 09/17/23 Plt Count 216 K/mm3 (150-450) 09/17/23 19:40 09/17/23 CHEMISTRY Potassium 3.9 mmol/L (3.5-5.1) 09/17/23 19:40 09/17/23 Sodium 136 mmol/L (136-145) 09/17/23 19:40 09/17/23 Magnesium 2.1 mg/dL (1.6-2.6) 10/14/22 02:35 10/14/22 BUN 19 mg/dL (7-18) H 09/17/23 19:40 09/17/23 Creatinine 1.12 mg/dL (0.70-1.30) 09/17/23 19:40 09/17/23 Glucose 164 mg/dL (74-106) H 09/17/23 19:40 09/17/23 POC Glucose 384 mg/dL (74-106) H 07/31/23 16:27 07/31/23 TSH 4.02 uIU/mL (0.358-3.74) H 07/31/23 06:40 07/31/23 COAG PT 12.4 SECONDS (11.7-14.9) 08/06/21 21:50 08/06/21 Pre-Assessment Diagnosis/Proposed Procedure Planned Operative Procedure(s): INSERTION PAIN PUMP IMPLANTABLE Anesthesia History 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 When Was Last Pacemaker Check QUESTION #4 FULL TEXT: You/Your Family Experience fever (hyperthermia) with Anesthesia Last Oral Intake Last Oral intake: Last Oral Intake NPO since Meds taken in AM with sips of water? 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 - supply chain systems manager: PONV - supply chain systems manager Female No 06/06/24 12:59 HX of Motion Sickness No 06/06/24 12:59 HX of N/V After Surgery No 06/06/24 12:59 Non-Smoker Yes 06/06/24 12:59 Duration of Surgery greater Yes 06/06/24 12:59 than 60 minutes Number of Risk Factors 2 06/06/24 12:59 PONV Score Moderate Risk 06/06/24 12:59 Height & Weight Height & Weight: Anesthesia: Height & Weight Height 6 ft 4 in 09/17/23 19:33 Respiratory Assessment Respiratory Assessment - supply chain systems manager: Respiratory Tract Infection Hx - supply chain systems manager Hx Respiratory Tract Infection No 06/06/24 12:59 STOP Sleep Apnea STOP Sleep Apnea - supply chain systems manager: STOP Sleep Apnea - supply chain systems manager Hx Hypertension Yes: CONTROLLED WITH MED 06/06/24 12:59 Hx Sleep Apnea Yes 06/06/24 12:59 CPAP No 06/06/24 12:59 BIPAP Yes 06/06/24 12:59 Do you snore loudly (louder than talking or can be heard Do you often feel tired/ fatigued/ sleepy during daytime? Has anyone observed you stop breathing during sleep? STOP Results Positive 06/06/24 12:59 QUESTION #5 FULL TEXT : Do you snore loudly (louder than talking or can be heard through closed doors)? 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 Specify any problems Hx of Preganancy in last 3 N/A 06/06/24 12:59 Months Nurse Filling Out Transfusion [email or web address] 06/06/24 12:59 & Questions: Date: 06/06/24 06/06/24 12:59 Time: 13:02 06/06/24 12:59 Patient unable to answer at this time (ie. confused, unrespo /Reproduction History /Reproductive History - supply chain systems manager: /Reproductive Hx- supply chain systems manager Hx Now No 06/06/24 12:59 Gestational Age (in weeks): EDC: Hx Hx Para Hx Section SAB No 06/06/24 12:59 Active Medications Active Medications: Current Medications Generic Name Dose Route Start Last Admin Trade Name Freq PRN Reason Stop Dose Admin Diphenhydramine HCl 12.5 - 25 mg 06/10/24 10:00 Diphenhydramine 50 Mg/Ml Syringe IV Q6H PRN PRN ITCHING Diphenhydramine HCl 12.5 - 25 mg 06/10/24 10:00 Diphenhydramine 12.5 Mg/5 Ml Udc PO Q6H PRN PRN ITCHING Cefazolin Sodium 3 gm/ N/A 30 mls @ 600 mls/hr 06/10/24 10:00 IV 06/10/24 10:02 PREOP ONE Morphine Sulfate 100 mg/ 20 mls @ 0.0083 mls/hr 06/10/24 10:00 Sodium Chloride 16 ml/ N/A INTRATH 09/18/24 19:37 .Q48H ADIEL As Directed [facility] Medical History Wears glasses Broken teeth Thyroid disease Insulin dependent diabetes mellitus Dietary restriction Leg cramps History of pain when walking History of edema History of echocardiogram Cardiology follow-up encounter Pain Bipolar disorder Anxiety Hypothyroidism Non-smoker BiPAP (biphasic positive airway pressure) dependence Restrictive lung disease Anemia Depression History of aortic dissection Marfan syndrome CHF (congestive heart failure) Infection of external auditory canal Abnormal stress test Uncontrolled hypertension Acute maxillary sinusitis, unspecified Nonobstructive atherosclerosis of coronary artery Hyperkalemia GERD (gastroesophageal reflux disease) Dissection of vertebral artery Hyperlipidemia Dissecting aneurysm of ascending aorta Essential (primary) hypertension (05/20/18) Marfans syndrome Home Medications ?Medication ?Instructions ?Recorded ?Last Taken ?Type acetaminophen 500 mg tablet 1,000 mg PO DAILY PRN Pain 05/19/18 05/19/18 History ibuprofen 200 mg tablet 400 - 600 mg PO DAILY PRN Pain 05/19/18 05/19/18 History handicap placcard #1 ea 03/15/21 Unknown Rx albuterol sulfate 90 mcg/actuation 2 puff inhalation Q4H PRN 10/03/21 Unknown Rx aerosol inhaler shortness of breath or wheezing #8.5 grams fluoxetine 10 mg tablet 20 mg PO QHS 10/13/22 Unknown History lorazepam 1 mg tablet 1 mg PO DAILY PRN 10/13/22 Unknown History levothyroxine 25 mcg tablet 25 mcg PO DAILY #90 tabs 01/16/23 Unknown Rx zolpidem 10 mg tablet 10 mg PO QHS PRN sleep #30 tabs 04/30/23 Unknown Rx oxycodone myristate 9 mg capsule 27 mg PO BID 07/30/23 Unknown History sprinkle extended release 12 hr(DON'T CRUSH) (Xtampza ER) clonidine HCl 0.1 mg tablet 0.1 mg PO BID blood pressure #180 09/25/23 Unknown Rx tabs carvedilol 25 mg tablet 25 mg PO BID #180 tabs 11/04/23 Unknown Rx aspirin 81 mg tablet,delayed 81 mg PO QDAY #90 tabs 01/06/24 Unknown Rx release (Adult Aspirin Regimen) rabeprazole 20 mg tablet,delayed 20 mg PO DAILY stomach #90 tabs 02/12/24 Unknown Rx release (AcipHex) nifedipine 60 mg tablet,extended 60 mg PO DAILY BP #90 tabs 03/21/24 Unknown Rx release 24 hr pen needle, diabetic 31 gauge x #100 ea 04/15/24 Unknown Rx /16 (Unifine Pentips Plus) amoxicillin 500 mg capsule 500 mg PO TID DENTAL ISSUE 06/06/24 Unknown History insulin glargine 100 unit/mL (3 25 unit subcut BID 06/06/24 Unknown History mL) subcutaneous pen, sensor insulin lispro 100 unit/mL 15 unit subcut BID 06/06/24 Unknown History subcutaneous pen (Humalog KwikPen (U-100) Insulin) lidocaine 5 % topical patch 1 patch topical DAILY PRN PRN pain 06/06/24 Unknown History quetiapine 200 mg tablet 400 mg PO BID sleep 06/06/24 Unknown History Allergy/AdvReac Type Severity Reaction Status Date / Time Quinolones Allergy Unknown PT UNSURE Verified 06/06/24 12:52 OF REACTION ciprofloxacin (From Cipro) Allergy Rash Verified 06/06/24 12:52 ciprofloxacin HCl (From Allergy Rash Verified 06/06/24 12:52 Cipro) sulfamethoxazole (From Allergy Rash Verified 06/06/24 12:52 Bactrim) tramadol Allergy Itching Verified 06/06/24 12:52 trimethoprim (From Bactrim) Allergy Rash Verified 06/06/24 12:52 Family History Son Marfans syndrome Daughter Marfans syndrome Father Hypertension Grandfather Heart disease Myocardial infarction CVA (cerebral vascular accident) Grandmother Heart disease Surgical History Hx of hammer toe correction History of open reduction and internal fixation (ORIF) procedure (2016) History of left heart catheterization (12/14/20) History of tonsillectomy History of mitral valve repair (03/08/11) H/O coronary artery bypass surgery (03/08/11) Hx of ascending aorta replacement (03/08/11) Social History household members: spouse Smoking Status: Never smoker alcohol intake: current alcohol intake frequency: a few times a month substance use type: does not use Review of Systems (Anesthesia) ROS Narrative System reviewed and no additional complaints, except as documented.
[2024-06-10] MEDS: 0.9% Normal Saline (1000mL) 1,000 ML 15 ML IV (09:26)
[2024-06-10] MEDS: Carvedilol 25 MG Tablet PO (09:30)
[2024-06-10] MEDS: NIFEdipine 60 MG Tablet PO (09:30)
[2024-06-10] MEDS: cloNIDine HCl 0.1 MG Tablet PO (09:30)
[2024-06-10 10:21] LABS: Bedside Glucose 186 mg/dL (74-106)
[2024-06-10] MEDS: Cefazolin 3 GM in Syringe 1 EACH IV (10:40)
--- NOTE | 2024-06-10 10:45 | RAD_ITS ---
PROCEDURE: Fluoroscopy use. REASON FOR EXAM: Pain pump placement. TECHNIQUE: A single intraoperative fluoroscopic view of the lower thoracic/upper lumbar spine was obtained. COMPARISON: None. FINDINGS: A single lateral intraoperative fluoroscopic view of the lower thoracic/lumbar spine was obtained. 12.2 seconds of fluoroscopic time was utilized. A linear wire type structure projects posterior to the lower aspect of the thoracic spine, near T12. RAD/Spine 1 View Any Level IMPRESSION: Documentation of fluoroscopy used during pain pump placement. Please see the o perative note for details. Reading Location: [facility]
[2024-06-10] MEDS: Lidocaine 1% (30 ml sdv) 30 ML Vial (10:54)
[2024-06-10] MEDS: Bupiv/Epi 0.25% 30 ML Vial (10:54)
[2024-06-10] MEDS: MORPHINE INTRATH (11:18)
[2024-06-10] MEDS: NORMAL SALINE INTRATH (11:18)
--- NOTE | 2024-06-10 11:57 | PCM.POST.ANE ---
Anesthesia: Postop Eval I Current Vital Signs Temperature: 97.7 F Pulse Rate: 61 Blood Pressure: 151/76 Respiratory Rate: 18 Pulse Ox: 96 Oxygen Delivery Method: Nasal Cannula Oxygen Flow Rate (L/min): 4 Assessment Airway patent: Yes Spontaneous unlabored respirations: Yes Mental status: Awake and Calm nausea: No Vomiting: No Anesthesia Complication: No Fluid Hydration Crystalloid volume administer (ml): 700 Total IV fluid infused: 700 Progress Note Anesthesia document: Postop Eval 1 completed: Yes
--- NOTE | 2024-06-10 13:25 | POSTOPAN2_ITS ---
Anesthesia Postop Eval I Sum Postop Eval Completion status Anesthesia document: Postop Eval 1 completed: Yes Anesthesia Postop Eval I Summary Anesthesia Postop Eval I Summary: Anesthesia Postop Eval I: Assessment Summary Airway patent Yes 06/10/24 11:58 [email or web address] Spontaneous unlabored Yes 06/10/24 11:58 [email or web address] respirations Mental status Awake,Calm 06/10/24 11:58 [email or web address] nausea No 06/10/24 11:58 [email or web address] Vomiting No 06/10/24 11:58 [email or web address] Anesthesia Postop Eval I: Fluid Summary Crystalloid volume administer 700 06/10/24 11:58 [email or web address] (ml) Colloids volume administered ( ml) Blood Product volume administered (ml) Total IV fluid infused 700 06/10/24 11:58 [email or web address] Anesthesia Postop Eval I: Summary Notes Anesthesia Complication No 06/10/24 11:58 [email or web address] Anesthesia Complication Comment: Post-operative progress note Anesthesia: Postop Eval II Evaluation Mental status: Awake Pain Level: 1 nausea: No Vomiting: No
--- NOTE | 2024-06-10 13:25 | PCM.POSTANE2 ---
Anesthesia Postop Eval I Sum Postop Eval Completion status Anesthesia document: Postop Eval 1 completed: Yes Anesthesia Postop Eval I Summary Anesthesia Postop Eval I Summary: Anesthesia Postop Eval I: Assessment Summary Airway patent Yes 06/10/24 11:58 [email or web address] [email or web address] Spontaneous unlabored Yes 06/10/24 11:58 FIELD [email or web address] respirations Mental status Awake,Calm 06/10/24 11:58 FIELD [email or web address] nausea No 06/10/24 11:58 FIELD [email or web address] Vomiting No 06/10/24 11:58 FIELD [email or web address] Anesthesia Postop Eval I: Fluid Summary Crystalloid volume administer 700 06/10/24 11:58 FIELD [email or web address] (ml) Colloids volume administered ( ml) Blood Product volume administered (ml) Total IV fluid infused 700 06/10/24 11:58 FIELD [email or web address] Anesthesia Postop Eval I: Summary Notes Anesthesia Complication No 06/10/24 11:58 FIELD [email or web address] Anesthesia Complication Comment: Post-operative progress note Anesthesia: Postop Eval II Evaluation Mental status: Awake Pain Level: 1 nausea: No Vomiting: No
== END 2024-06-10 13:32 | disposition home or self-care (01) ==
LOC: SDC 08:47 → AC 08:48
PROVIDERS: PCP Family Medicine; Referring Provider Anesthesiology Pain Medicine; Visit Provider Anesthesiology Pain Medicine
PROC: (CPT 63685; principal; 2024-06-10 09:45)
DX: M48.061 Spinal stenosis, lumbar region without neurogenic claudication (principal); E11.9 Type 2 diabetes mellitus without complications; Z79.4 Long term (current) use of insulin; I10 Essential (primary) hypertension; M54.16 Radiculopathy, lumbar region; G89.4 Chronic pain syndrome; Z79.891 Long term (current) use of opiate analgesic; Z79.899 Other long term (current) drug therapy; Z87.891 Personal history of nicotine dependence
CPT/HCPCS: 63685; 00300; 72020; 76000; 82962; J2274; J2405

== ENCOUNTER 2024-07-08 09:39 | Emergency (ER) | payer OTHER, MEDICARE, SELFPAY ==
[2024-07-08 09:40] VITALS: BP 168/72; PULSE 88; RESP 17; TEMP 36.4; O2SAT 96
[2024-07-08] MEDS: morphine 10 MG/ML Syringe IV (11:09)
--- NOTE | 2024-07-08 11:15 | CT_ITS ---
EXAM: CT BRAIN WITHOUT CONTRAST CLINICAL HISTORY: WEAKNESS. PATIENT FELL. TRAUMA. COMPARISON: CT brain dated 03/20/2021. MRI brain dated 03/21/2021. TECHNIQUE: Contiguous axial scans of 3.75 mm slice thicknesses with sagittal and coronal reconstruction images. One or more dose reduction techniques were utilized (e.g., automated exposure control, adjustment of mA and/or kv according to patient size, use of iterative reconstruction technique). FINDINGS: Cerebrum: No intraparenchymal hemorrhage. No abnormal areas of encephalomalacia. No mass effect or midline shift. Berg-white matter differentiation is normal. Ventricles and cisterns: Appropriate size for patient's age. Extra-axial fluid: Unremarkable. Posterior fossa: Unremarkable cerebellum. No abnormalities involving the brainstem. Paranasal sinuses: Mild mucoperiosteal thickening in both maxillary sinuses. Vasculature: Unremarkable. Mastoid air cells: Normal. Calvarium: Unremarkable. Soft tissues: Unremarkable. CT/Brain/Head without Contrast IMPRESSION: 1. No acute intracranial abnormalities are demonstrated. Reading Location: [place] [id number]
[2024-07-08 11:17] LABS: Absolute Lymphocyte Count 1.01 X10^3/uL (0.83-4.51); Absolute Neutrophil Count 6.4 X10^3/uL (2.0-7.7); Basophil# 0.05 X10^3/uL; Basophil% 0.6 % (0-1); Eosinophil# 0.18 X10^3/uL; Eosinophils% 2.1 % (0-5); Hematocrit 37.1 % (40-54); Hemoglobin 12.6 g/dL (13.0-16.5); Lymphocyte # 1.01 X10^3/ul (0.83-4.51); Lymphocyte % 11.9 % (19-41); Mean Corpuscular Hgb 29.1 pg (27.0-32.0); Mean Corpuscular Volume 85.7 fL (80-94); Mean Platelet Vol. 9.3 fl (6.2-12.0); Monocyte# 0.75 X10^3/uL; Monocyte% 8.9 % (0-10); NRBC Flagged by Analyzer 0 % (0-5); Neutrophil % 75.7 % (47-70); Platelet Count 226 K/mm3 (150-450); RBC Distribution Width CV 13.1 % (11.6-14.6); RBC Distribution Width SD 40.8 fl (35.1-43.9); Red Blood Count 4.33 M/mm3 (4.6-6.2); White Blood Count 8.5 K/mm3 (4.4-11.0)
--- NOTE | 2024-07-08 11:30 | RAD_ITS ---
PROCEDURE: ANKLE MIN 3 VIEWS REASON FOR EXAM: Injury. Pain TECHNIQUE: 3 views of the left ankle COMPARISON: None FINDINGS: No visible fracture line. No suspicious bone lesion. Ossicles at the tip of the medial malleolus. Tiny radiopaque density at the tip of the lateral malleolus. Normal alignment. Mortise appears intact. No effusion. Marked soft tissue swelling surrounds the ankle. RAD/Ankle min 3 Views IMPRESSION: Ossicles at the tip of the medial malleolus most likely related to old remote t rauma. Tiny radiopaque density at the tip of the lateral malleolus may represent old t rauma. Can not exclude a tiny acute avulsion fracture. Marked soft tissue swelling. [facility]
--- NOTE | 2024-07-08 11:30 | RAD_ITS ---
PROCEDURE: LUMBAR SPINE 2 OR 3 VIEWS REASON FOR EXAM: Injury. Pain. TECHNIQUE: 2 view(s) of the lumbar spine. COMPARISON: MRI lumbar spine dated 04/13/2021. FINDINGS: Vertebra: Vertebral bodies normal in height. Mild spondylosis at L1 through L3. Alignment: No scoliosis. No spondylolisthesis. Discs: Narrowing of the L1-L2 and L2-L3 interspaces. Foramens: Unremarkable. Facets: Suspected facet arthropathy at L5-S1. Soft tissues: Prevertebral soft tissues are normal. RAD/Lumbar Spine 2 or 3 Views IMPRESSION: Mild spondylosis. Degenerative disc disease at L1 through L3. Reading Location: [place] [id number]
--- NOTE | 2024-07-08 11:30 | RAD_ITS ---
PROCEDURE: TIBIA AND FIBULA 2 VIEWS REASON FOR EXAM: Injury. Pain. TECHNIQUE: 2 view(s) of left tibia and fibula COMPARISON: None. FINDINGS: No fracture. No suspicious bone lesion. Normal alignment at the knee and ankle. Ankle soft tissue swelling. RAD/Tibia & Fibula 2 Views IMPRESSION: No acute osseous abnormalities. Soft tissue swelling at the ankle. Reading Location: [place] [id number]
--- NOTE | 2024-07-08 11:31 | ED.VIS.LOWEX ---
HPI History of Present Illness Chief Complaint: Lower Extremity Injury Informant: patient Narrative Narrative: Patient is a 53-year-old male with history of Marfan syndrome, aortic dissection, dissection of the vertebral artery, hypertension and chronic back pain with recent placement of what sounds like intrathecal pain pump (with Dr. Alegre) 1 month ago presenting with weakness, fall and left ankle pain and swelling. Patient states for the past few days his legs have been feeling weird and he has been shuffling more. He states he has not felt right for a few days. Last night he woke up around 2 AM and was stumbling. He fell down and maybe twisted his leg when he was falling. He was able to get himself back up and went to the bathroom. After that he went to the refrigerator and squatted down to look for some food. He then fell and felt a large pop in his left ankle and had immediate pain. He said pain and swelling since. He states he did hit his head. Denies any loss of conscious. Does not take any blood thinners but is on a daily aspirin. Notes he has had worsening of his back pain. He cannot get a hold of his pain management doctor because he is out of town. Denies any bowel or bladder incontinence. Denies any saddle anesthesia. No other complaints or concerns reported at this time. Does have chronic pain is also on Xtampza 27. [facility] Medical History Wears glasses Broken teeth Thyroid disease Insulin dependent diabetes mellitus Dietary restriction Leg cramps History of pain when walking History of edema History of echocardiogram Cardiology follow-up encounter Pain Bipolar disorder Anxiety Hypothyroidism Non-smoker BiPAP (biphasic positive airway pressure) dependence Restrictive lung disease Anemia Depression History of aortic dissection Marfan syndrome CHF (congestive heart failure) Infection of external auditory canal Abnormal stress test Uncontrolled hypertension Acute maxillary sinusitis, unspecified Nonobstructive atherosclerosis of coronary artery Hyperkalemia GERD (gastroesophageal reflux disease) Dissection of vertebral artery Hyperlipidemia Dissecting aneurysm of ascending aorta Essential (primary) hypertension (05/20/18) Marfans syndrome Home Medications ?Medication ?Instructions ?Recorded ?Last Taken ?Type acetaminophen 500 mg tablet 1,000 mg PO DAILY PRN Pain 05/19/18 07/07/24 History ibuprofen 200 mg tablet 400 - 600 mg PO DAILY PRN Pain 05/19/18 07/07/24 History handicap placcard #1 ea 03/15/21 Unknown Rx albuterol sulfate 90 mcg/actuation 2 puff inhalation Q4H PRN 10/03/21 Unknown Rx aerosol inhaler shortness of breath or wheezing #8.5 grams lorazepam 1 mg tablet 1 mg PO DAILY PRN anxiety 10/13/22 06/09/24 History levothyroxine 25 mcg tablet 25 mcg PO DAILY #90 tabs 01/16/23 07/08/24 Rx zolpidem 10 mg tablet 10 mg PO QHS PRN sleep #30 tabs 04/30/23 07/07/24 Rx clonidine HCl 0.1 mg tablet 0.1 mg PO BID blood pressure #180 09/25/23 07/08/24 Rx tabs carvedilol 25 mg tablet 25 mg PO BID #180 tabs 11/04/23 07/08/24 Rx rabeprazole 20 mg tablet,delayed 20 mg PO DAILY stomach #90 tabs 02/12/24 07/08/24 Rx release (AcipHex) nifedipine 60 mg tablet,extended 60 mg PO DAILY BP #90 tabs 03/21/24 07/08/24 Rx release 24 hr pen needle, diabetic 31 gauge x #100 ea 04/15/24 Unknown Rx 16 (Unifine Pentips Plus) insulin glargine 100 unit/mL (3 25 unit subcut BID 06/06/24 07/08/24 History mL) subcutaneous pen, sensor insulin lispro 100 unit/mL 10 - 15 unit subcut TIDCM 06/06/24 07/08/24 History subcutaneous pen (Humalog KwikPen (U-100) Insulin) lidocaine 5 % topical patch 1 patch topical DAILY PRN pain 06/06/24 Unknown History quetiapine 200 mg tablet 400 mg PO BID 06/06/24 07/07/24 History aspirin 81 mg tablet,delayed 81 mg PO DAILY 07/08/24 07/08/24 History release (Adult Aspirin Regimen) dextroamphetamine-amphetamine 30 1 tab PO BID PRN ADHD 07/08/24 Unknown History mg tablet fluoxetine 20 mg capsule 20 mg PO QHS 07/08/24 07/07/24 History oxycodone 5 mg tablet 5 - 10 mg (1 - 2 x 5 mg) PO Q8H 07/08/24 Unknown Rx PRN pain 3 days #15 tabs Allergy/AdvReac Type Severity Reaction Status Date / Time Quinolones Allergy Unknown PT UNSURE Verified 07/08/24 09:40 OF REACTION ciprofloxacin (From Cipro) Allergy Rash Verified 07/08/24 09:40 ciprofloxacin HCl (From Allergy Rash Verified 07/08/24 09:40 Cipro) sulfamethoxazole (From Allergy Rash Verified 07/08/24 09:40 Bactrim) tramadol Allergy Itching Verified 07/08/24 09:40 trimethoprim (From Bactrim) Allergy Rash Verified 07/08/24 09:40 Family History Son Marfans syndrome Daughter Marfans syndrome Father Hypertension Grandfather Heart disease Myocardial infarction CVA (cerebral vascular accident) Grandmother Heart disease Surgical History Hx of hammer toe correction History of open reduction and internal fixation (ORIF) procedure (2016) History of left heart catheterization (12/14/20) History of tonsillectomy History of mitral valve repair (03/08/11) H/O coronary artery bypass surgery (03/08/11) Hx of ascending aorta replacement (03/08/11) Social History household members: spouse Smoking Status: Never smoker alcohol intake: current alcohol intake frequency: a few times a month substance use type: does not use ROS ROS ED Constitutional Constitutional ED: Denies chills or fever(s) Eyes Eyes: Denies change in vision Cardiovascular Cardiovascular: Denies chest pain Respiratory/Chest Respiratory/Chest: Denies cough or dyspnea Gastrointestinal Gastrointestinal: Denies abdominal pain, nausea or vomiting Genitourinary Genitourinary ED: Reports other; Denies dysuria Musculoskeletal Musculoskeletal: Reports back pain and other Details: Left ankle pain and swelling Integumentary Denies Abrasions or rash Neurologic Neurologic: Reports weakness; Denies headache(s) or paresthesias Hematologic/Lymphatic Hematologic/Lymphatic: Denies easy bleeding or easy bruising EXAM Physical Exam Const Vital Signs: 07/08/24 09:40 07/08/24 13:40 Temperature 97.6 F L Temperature Source Temporal Pulse Rate 88 74 Respiratory Rate 17 18 Blood Pressure 168/72 H 131/70 H Blood Pressure Mean 104 90 Pulse Ox 96 Oxygen Delivery Method Room Air Positive well nourished and well developed General Appearance ED: well developed and NAD HEENT Reports moist mucous membranes HEENT Narrative: Poor dentition. No cephalhematoma atraumatic Neck full ROM Thyroid: Negative for tender Chest Wall inspection of chest normal and palpation of chest normal Resp normal respiratory effort and clear to auscultation bilaterally Cardio regular rate and regular rhythm Cardio Narrative: 2+ radial DP pulses GI non-tender and non-distended Palpation: soft Extremity Extremity Narrative: Swelling and tenderness over the left ankle lateral malleolus. Mild tenderness palpation over the left fibular head. Normal Godoy test. Neuro CN's II-XII intact bilaterally, moves all extremities and no sensory deficits noted Sensorium / Orientation: alert Motor Exam: strength 5/5 throughout; Negative for general weakness Psych mental status grossly normal Skin no wounds Rashes: no rashes Trauma: Negative for abrasion MDM MDM MDM Narrative Medical decision making narrative: Patient evaluated for difficulty ambulating secondary to injury to his left ankle associated pain. Does have chronic pain in his had more shuffling gait for the past week. Does follow with pain management, Dr. Alegre. Patient given morphine initially in the emergency room for pain control. He does have tenderness and swelling to his left ankle. Differential clues ankle sprain, ankle fracture. Lower suspicion for Achilles tendon injury given he has normal Godoy test. He does not have any red flag symptoms in his history for cauda equina syndrome however given his more shuffling gait and increased pain we will also obtain metabolic workup. Patient thinks he might of hit his head so will obtain CT of the brain to rule out intracranial process. Ankle x-ray viewed by myself as well as radiology does not show any acute fracture. There is evidence of old trauma of the medial malleolus and chronic appearing ossicle at the base of the lateral malleolus. It is possible there could be a tiny acute avulsion fracture. This does correlate with his presentation. Patient is placed in a walking boot. We given a walker. Is given 10 of oxycodone for further pain control. Initially does have pain with ambulation but does better with pain medication, walker and boot. Given outpatient podiatry follow-up. Did speak with the pain management office about sending him home with a short course of Percocet for further pain control. They are agreeable with this. Patient be discharged home. Given return precautions. Counseled that if he has too much pain and cannot ambulate or take care of himself at home he might require admissions for pain control/PT OT evaluation. Lab Data Attestation: I reviewed the patient's lab results. Labs: Laboratory Results - last 24 hr 07/08/24 07/08/24 11:10 12:55 WBC 8.5 RBC 4.33 L Hgb 12.6 L Hct 37.1 L MCV 85.7 MCH 29.1 MCHC 34.0 RDW Std Deviation 40.8 RDW Coeff of [place]ita 13.1 Plt Count 226 MPV 9.3 Immature Gran % (Auto) 0.800 Neut % (Auto) 75.7 H Lymph % (Auto) 11.9 L [place] % (Auto) 8.9 Eos % (Auto) 2.1 Baso % (Auto) 0.6 Absolute Neuts (auto) 6.4 Absolute Lymphs (auto) 1.01 Nucleated RBC % 0 Sodium 138 Potassium 3.7 Chloride 100 Carbon Dioxide 24.6 Anion Gap 14 BUN 17 Creatinine 1.27 H Est GFR (MDRD) Non-Af 67 BUN/Creatinine Ratio 13.7 Glucose 128 H Calcium 9.1 Urine Color Yellow Urine Clarity Clear Urine pH 6.0 Ur Specific [place] 1.020 Urine Protein 100 H Urine Glucose (UA) Normal Urine Ketones Negative Urine Occult Blood Negative Urine Nitrite Negative Urine Bilirubin Negative Urine Urobilinogen Normal Ur Leukocyte Esterase Negative Urine RBC 0-5 SEEN Urine WBC 0-5 SEEN Ur Squamous Epith Cells 0 SEEN Urine Bacteria 0 SEEN Hyaline Casts 5-10 SEEN Fine Granular Casts 0-5 SEEN WBC Casts 0-5 SEEN Urine Mucus 0 SEEN Radiography Diagnostic Testing: Clinical Impression(s) from Imaging Studies Brain CT 07/08/24 11:15 IMPRESSION: 1. No acute intracranial abnormalities are demonstrated. Reading Location: [facility] Ankle X-Ray 07/08/24 11:30 IMPRESSION: Ossicles at the tip of the medial malleolus most likely related to old remote trauma. Tiny radiopaque density at the tip of the lateral malleolus may represent old trauma. Can not exclude a tiny acute avulsion fracture. Marked soft tissue swelling. Reading Location: [facility] Lumbar Spine X-Ray 07/08/24 11:30 IMPRESSION: Mild spondylosis. Degenerative disc disease at L1 through L3. Reading Location: [facility] Tibia/Fibula X-Ray 07/08/24 11:30 IMPRESSION: No acute osseous abnormalities. Soft tissue swelling at the ankle. Reading Location: [place] [id number] Rhythm Strip Rhythm Strip: Sinus Rhythm Rate: 63 Ectopy: None EKG Initial EKG: Attestation: I personally reviewed and interpreted this EKG as follows: Interpretation: Sinus Rhythm Comments: Normal sinus rhythm at a rate of 63 bpm Prescribing block with a WI interval 230 Normal axis LVH with QRS widening No change made to prior EKG Prior EKG tracings: available for review Prior: Unchanged Discharge Plan Triage Chief Complaint: Lower Extremity Injury ED Provider: Blanca Julio Dx/Rx/DC Orders Clinical Impression: Left ankle sprain Instructions: ED Ankle Sprain (Adult) Prescriptions: New oxycodone 5 mg tablet 5 - 10 mg PO Q8H PRN (Reason: pain) 3 Days Qty: 15 0RF No Action acetaminophen 500 MG tablet 1,000 mg PO DAILY PRN (Reason: Pain) ibuprofen 200 MG tablet 400 - 600 mg PO DAILY PRN (Reason: Pain) lorazepam 1 mg tablet 1 mg PO DAILY PRN (Reason: anxiety) lidocaine 5 % adhesive patch,medicated 1 patch topical DAILY PRN (Reason: pain) quetiapine 200 mg tablet 400 mg PO BID insulin lispro [Humalog KwikPen Insulin] 100 unit/mL insulin pen 10 - 15 unit subcut TIDCM insulin glargine 100 unit/mL (3 mL) insulin pen, sensor 25 unit subcut BID fluoxetine 20 mg capsule 20 mg PO QHS dextroamphetamine-amphetamine 30 mg tablet 1 tab PO BID PRN (Reason: ADHD) aspirin [Adult Aspirin Regimen] 81 mg tablet,delayed release (DR/EC) 81 mg PO DAILY (DME) handicap placcard See Rx Instructions .Route .MEDSUPPLY Qty: 1 0RF Rx Instructions: dx: debility, CHF Lifetime albuterol sulfate 90 mcg/actuation HFA aerosol inhaler 2 puff inhalation Q4H PRN (Reason: shortness of breath or wheezing) Qty: 8.5 3RF levothyroxine 25 mcg tablet 25 mcg PO DAILY Qty: 90 3RF zolpidem 10 mg tablet 10 mg PO QHS PRN (Reason: sleep) Qty: 30 0RF clonidine HCl 0.1 mg tablet 0.1 mg PO BID Qty: 180 3RF carvedilol 25 mg tablet 25 mg PO BID Qty: 180 3RF Rx Instructions: must administer with a meal/food rabeprazole [AcipHex] 20 mg tablet,delayed release (DR/EC) 20 mg PO DAILY Qty: 90 3RF nifedipine 60 mg tablet extended release 24hr 60 mg PO DAILY Qty: 90 3RF (DME) pen needle, diabetic [Unifine Pentips Plus] 31 gauge x 5/16 needle See Rx Instructions .Route Qty: 100 12RF Rx Instructions: Use as directed 4-5 times daily; Primary Care Provider: Rodo Edmonds Referrals: Melquiades Alegre MD [Med Staff - Active Staff] - Elijah Zepeda DPM [Med Staff - Active Staff] - Rodo Edmonds MD [Primary Care Provider] - Activity Restrictions/Additional Instructions: Suspect you have a sprain of your ankle. There are chronic changes to the ankle on your x-ray but it is possible you could have a very small avulsion fracture of the distal left fibula. These are treated the same. You been given a walking boot. Is weightbearing as tolerated. Continue to ice and try to elevate leg is much as possible. After discussion with the pain management office you have been given a short course of oxycodone for breakthrough pain. You may also take ibuprofen and/or Tylenol for pain control. Print Language: [place] Disposition Disposition: Home, Self Care
[2024-07-08 11:33] LABS: Anion Gap 14 (5-15); BUN 17 mg/dL (4-19); BUN/Creat Ratio 13.7 RATIO (10-20); Calcium,Total 9.1 mg/dL (7.6-11.0); Carbon Dioxide 24.6 mmol/L (21.0-32.0); Chloride 100 mmol/L (98-108); Creatinine, Serum 1.27 mg/dL (0.70-1.20); EST Glomerular Filtration Rate 67 (>60); Glucose 128 mg/dL (70-99); Potassium 3.7 mmol/L (3.3-5.1); Sodium Level 138 mmol/L (133-145)
[2024-07-08 12:56] LABS: Bacteria 0 SEEN /hpf (None Seen); Mucous, Urine 0 SEEN /hpf (<or=2+); Squamous Epithelial Cells - UA 0 SEEN /hpf (0-5)
[2024-07-08 13:16] LABS: Color, Urine Yellow (Yellow); Glucose, Dipstick Normal (Normal); Ketone-Dipstick Negative (Negative); Leukocyte Esterase-Dipstick Negative /ul (Negative); Nitrite-Dipstick Negative (Negative); Occult Blood-Urine Negative /ul (Negative); Protein-Dipstick 100 mg/dl (Negative); Urine Bilirubin Dipstick Negative (Negative); Urine Clarity Clear (Clear); Urine Urobilinogen Normal (Normal)
[2024-07-08] MEDS: oxyCODONE 5 MG Tablet 10 MG PO (13:25)
[2024-07-08 13:28] LABS: Red Blood Cells-Urine 0-5 SEEN /hpf (0-5); White Blood Cells 0-5 SEEN /hpf (0-5)
[2024-07-08 13:29] LABS: Fine Granular Cast- Urine 0-5 SEEN /lpf (0-5); Hyaline Cast 5-10 SEEN /lpf (0-5); White Cell Cast 0-5 SEEN /lpf (None Seen)
[2024-07-08 13:40] VITALS: BP 131/70; PULSE 74; RESP 18
== END 2024-07-08 15:57 | disposition home or self-care (01) ==
PROVIDERS: Emergency Provider Emergency Medicine; PCP Family Medicine; Visit Provider Emergency Medicine
DX: S93.402A Sprain of unspecified ligament of left ankle, initial encounter (principal); E11.9 Type 2 diabetes mellitus without complications; Z79.4 Long term (current) use of insulin; I10 Essential (primary) hypertension; W18.39XA Other fall on same level, initial encounter; I25.10 Atherosclerotic heart disease of native coronary artery without angina pectoris; Z79.82 Long term (current) use of aspirin; Z79.899 Other long term (current) drug therapy
CPT/HCPCS: 70450; 72100; 73590; 73610; 80048; 81001; 85025; 93005; 96374; 99284; A4216

== ENCOUNTER 2025-04-06 18:09 | Emergency (ER) | payer OTHER, MEDICARE, SELFPAY ==
[2025-04-06 18:10] VITALS: BP 131/69; PULSE 78; RESP 15; TEMP 36.2; O2SAT 96; BMI 32.4
--- NOTE | 2025-04-06 18:31 | EKG12_ITS ---
Test Reason : DYSRHYTHMIA Blood Pressure : */* mmHG Vent. Rate : 60 BPM Atrial Rate : 60 BPM P-R Int : 228 ms QRS Dur : 120 ms QT Int : 448 ms P-R-T Axes : -29 -15 136 degrees QTcB Int : 448 ms Sinus rhythm with 1st degree A-V block Left ventricular hypertrophy with QRS widening and repolarization abnormality ( [place] product ) Abnormal ECG Confirmed by MARIUSZ JEAN MD ([id number]), international editorial producer RM FROST ([id number]) on 04/07/2025 9:16:28 AM Referred By: Confirmed By: MARIUSZ JEAN MD
--- NOTE | 2025-04-06 18:31 | RAD_ITS ---
PROCEDURE: PELVIS 1 OR 2 VIEWS 04/06/2025 REASON FOR EXAM: TRAUMA TECHNIQUE: Procedure Code: RADPEL Modality: DX Procedure: PELVIS 1 OR 2 VIEWS COMPARISON: None. FINDINGS: No evidence of acute fracture or dislocation. Intact bilateral hip joints with mild degenerative arthrosis. Normal bone mineralization. Grossly unremarkable soft tissues. RAD/Pelvis 1 or 2 Views IMPRESSION: No evidence of acute fracture or dislocation. Reading Location: [id number]
[2025-04-06] MEDS: 0.9% Normal Saline (1000mL) 1,000 ML 999 ML IV (18:44)
--- OUTSIDE RECORDS SUMMARY | 2025-04-06 18:49 | XMS RPT_ITS | CCD ---
Author Organization 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 Dhaval Braden Primary Care Provider Dr. Dhaval Braden Referring Provider Aminata BASS, PA Akin Salazar Attending Provider Dr. Arturo White Emergency Provider Dr. Brooke Spain Attending Provider [phone] Leonor HARRIS, [facility] Primary Care Provider Diaz Schafer MD Unavailable Dr. Miko Ramirez Attending Provider [phone] Dr. Arturo White Referring Provider Migdalia Sewell Attending Provider Unavailable Leonor HARRIS, [facility] Primary Care Provider Diaz Schafer MD Unavailable Dr. Dhaval Braden Primary Care Provider Dr. Deandre Villalpando Emergency Provider Dr. eDandre Henson Admit Provider Dr. Deandre Henson Attending Provider Dr. Deandre Henson Other Provider Dr. Miko Ramirez Attending Provider Dr. Miko Ramirez Other Provider Dr. Daquan Miller Attending Provider Dr. Daquan Miller Other Provider Dr. Eduard Rea Attending Provider Unavailable Primary Care Provider Unavailabl e Gilmar HARRIS, Diaz F Unavailable [phone] Dhaval Braden MD Primary Care Provider Grey, Dr. Koehler Primary Care Provider Dr. Yaakov Barrientos Emergency Provider Dr. Daquan Miller Attending Provider Gunning, Dhaval Primary Care Unavailable Basali, Melquiades Attending Unavailable Basali, Melquiades Referring Unavailable Gunning, Dhaval Primary Care Unavailable Eduard Rea Attending Unavailable Jopperi, Daquan Attending Unavailable Gunning, Dhaval Primary Care Unavailable Jopperi, Daquan Admitting Unavailable Tereletsky, Isaak Attending Unavailable Jopperi, Daquan Consulting Unavailable Gunning, Dhaval Primary Care Unavailable Tereletsky, Isaak Consulting Unavailable Nicolette Mane Attending Unavail able Nicolette Mane Referring Unavail able Gunning, Dhaval Primary Care Unavailable Gunning, Hdaval Primary Care Unavailable Geovani Fernandez Attending Unavailable Gunning, Dhaval Primary Care Unavailable Blanca Julio Attending Unavailable Basali, Melquiades Referring Unavailable Gunning, Dhaval Primary Care Unavailable Basali, Melquiades Attending Unavailable Jopperi, Daquan Admitting Unavailable Tereletsky, Isaak Attending Unavailable Jopperi, Daquan Consulting Unavailable Gunning, Dhaval Primary Care Unavailable Gunning Dr. Dhaval HARRIS Primary Care Provider Un available Nicolette Mane Attending Provider Nicolette Mane Referring Provider Dr. Eduard Rea MD Attending Provider Dr. Melquiades Alegre MD Attending Provider Dr. Melquiades Alegre MD Referring Provider Dr. Blanca Julio DO Emergency Provider Allergies Allergy Classification Reported Allergen(s) Allergy Type Date of Onset Reaction(s) Facility (20 sources) Ciprofloxacin Drug Allergy 04-12-20 15 [facility] Work Phone: (11 sources) Ciprofloxacin; Translations: [ciprofloxacin HCl] Drug Allergy 03-13-20 21 [facility] (10 sources) Sulfamethoxazole Drug Allergy 03-13-20 21 [facility] (20 sources) traMADol Drug Allergy 11-28-19 17 [facility] (10 sources) Trimethoprim Drug Allergy 03-13-20 21 Rash [facility] (12 sources) Sulfamethoxazole / Trimethoprim Drug Allergy 04-14-20 15 Hives [facility] Work Phone: (3 sources) Quinolones (Antibiotic) Allergy to substance 07-30-19 24 PT UNSURE OF REACTION [facility] (1 source) Ciprofloxacin Drug Allergy 07-09-19 25 [facility] Repository (1 source) Quinolones (Antibiotic) Drug allergy (disorder) 07-09-19 25 [facility] (1 source) Sulfamethoxazole Drug Allergy 07-09-19 25 [facility] (1 source) traMADol Drug Allergy 07-09-19 25 [facility] (1 source) Trimethoprim Drug Allergy 07-09-19 25 [facility] Medications Current Medications Medication Drug Class(es) Dates Sig (Normalized) Sig (Original) acetaminophen 500 mg oral tablet (10 sources) Start: 05-19-2018 take 2 tablets by mouth once daily as needed for pain Acetaminophen 500 MG tablet Active 1000 mg PO DAILY as needed for Pain May 19, 2018 12:00am Start: 05-19-2018 take 1000 mg by mout h once daily Acetaminophen Active 1000 MG PO DAILY May 19, 2018 1:00am amphetamine aspartate 7.5 mg / amphetamine sulfate 7.5 mg / dextroamphetamine saccharate 7.5 mg / dextroamphetamine sulfate 7.5 mg oral tablet (20 sources) Central Nervous System Stimulant Start: 07-08-2024 Dextroamphetamine-Amphetamin e 30 mg tablet Active 1 {tbl} PO TWICE A DAY as needed for ADHD July 08, 2024 12:00am Start: 07-30-2023 End: 07-31-2023 Dextroamphetamine-Amphetamin e 30 mg tablet Discontinued 1 {tbl} PO TWICE A DAY as needed for ADD July 29, 2023 11:00pm July 31, 2023 12:34pm Start: 07-30-2023 End: 07-31-2023 take 1 tablet by mouth twice daily Dextroamphetamine-Amphetamine Discontinu ed 1 TABLET PO TWICE A DAY July 30, 2023 12:00am July 31, 2023 1:34pm Start: 09-19-2021 take 1 tablet by eb th twice daily Amphetamine-Dextroamphetamine (ADDERALL) 30 mg tablet Take 1 tablet by mouth twice daily. 0 09/19/2021 Active Start: 03-20-2021 take 1 tablet by eb th once daily Dextroamphetamine-Amphetamine (Adderall) 30 mg tablet Active 30 MG PO DAILY March 20, 2021 1:00am Start: 08-03-2020 End: 01-18-2021 Dextroamphetamine-Amphetamin e 20 MG tablet Discontinued 1 {tbl} PO DAILY August 02, 2020 11:00pm January 18, 2021 7:57am Comment on above: Take 1 tablet by eb twice daily. aspirin 81 mg delayed release oral tablet (20 sources) Platelet Aggregation Inhibitor, Nonsteroidal Anti-inflammatory Drug Start: 09-18-2021 End: 07-08-2024 take 1 tablet by mouth once daily Aspirin (Adult Aspirin Regimen) 81 mg tablet,delayed release (DR/EC) Active 81 mg PO DAILY July 08, 2024 12:00am Start: 08-31-2021 End: 09-18-2021 take 1 tablet by mouth once daily Aspirin 81 mg Tablet Discontinued 81 mg PO DAILY August 30, 2021 11:00pm September 18, 2021 4:01pm Start: 08-22-2021 End: 09-21-2021 take 1 tablet by mouth once daily aspirin 81 mg chewable tablet Take 1 tablet by mouth once daily. 30 tablet 0 08/22/2021 Active Comment on above: Take 1 tablet by eb once daily. Budesonide-Formotero l (2 sources) Corticosteroid, beta2-Adrenergic Agonist Start: 01-18-2021 take 1 puff(s) by inhalation twice daily Budesonide-Formoter ol (Symbicort) 160-4.5 mcg/actuation HFA aerosol inhaler Active 2 PUFF INHALATION TWICE A DAY January 18, 2021 8:55am carvedilol 25 mg oral tablet (20 sources) alpha-Adrenergic Rocio, beta-Adrenergic Rocio Start: 11-04-2023 take 1 tablet by mouth twice daily at mealtime Carvedilol 25 mg tablet Active 25 mg PO TWICE A DAY 180 November 03, 2023 11:00pm must administer with a meal/food Start: 09-18-2021 End: 11-04-2023 Carvedilol 25 mg tablet Discontinued 50 mg PO TWICE A DAY 360 September 16, 2022 3:44pm November 04, 2023 3:57pm Hold for heart less than 60 or systolic blood pressure less than 100 mmHg. Start: 09-18-2021 End: 09-16-2022 Carvedilol Active 50 MG PO T WICE A DAY 360 September 16, 2022 4:44pm Hold for heart less than 60 or systolic blood pressure less than 100 mmHg. Start: 08-21-2021 End: 09-20-2021 take 2 tablets by mouth twice daily at mealtime carvedilol (COREG) 25 mg tablet Take 2 tablets by mouth twice daily with meals. 120 tablet 0 08/21/2021 Active Start: 03-25-2021 End: 09-18-2021 Carvedilol (Coreg) 12.5 mg t ablet Discontinued 50 mg PO TWICE A DAY August 31, 2021 7:21pm September 18, 2021 4:01pm must administer with a meal/food 25 in am and 12.5 at night Hold for heart less than 60 or systolic blood pressure less than 100 mmHg. Start: 08-03-2020 End: 01-31-2021 take 1 tablet by mouth twice daily at mealtime Carvedilol (Coreg) 25 mg tablet Discontinued 25 mg PO TWICE A DAY 180 November 06, 2020 4:40pm January 31, 2021 4:06pm must administer with a meal/food Start: 05-22-2018 End: 03-25-2021 take 1 tablet by mouth twice daily at mealtime Carvedilol (Coreg) 12.5 mg tablet Discontinued 12.5 mg PO TWICE A DAY January 30, 2021 11:00pm March 25, 2021 4:25pm must administer with a meal/food Comment on above: Take 1 tablet by eb th twice daily with meals. Take 2 tablets by mo [facility] twice daily with meals. cloNIDine hydrochloride 0.1 mg oral tablet (20 sources) Central alpha-2 Adrenergic Agonist Start: End: take 1 tablet by mouth twice daily Clonidine Hcl 0.1 mg tablet Active 0.1 mg PO TWICE A DAY September 25, 2023 9:26am Start: 09-15-2016 End: 03-25-2017 take 1 tablet by mouth twice daily as needed Clonidine Hcl 0.1 MG tablet Discontinued 0.1 mg PO TWICE DAILY NEEDED as needed for Hypertensive Emergency September 15, 2016 4:30pm March 25, 2017 10:03pm Comment on above: Take 1 tablet by eb twice daily. FLUoxetine 20 mg oral capsule (6 sources) Serotonin Reuptake Inhibitor Start: 07-08-2024 take 1 capsule by mouth at bedtime Fluoxetine 20 mg capsule Active 20 mg PO AT BEDTIME July 08, 2024 12:00am Start: 10-13-2022 End: 07-08-2024 take 2 tablets by mouth at bedtime Fluoxetine 10 mg Tablet Discontinued 20 mg PO AT BEDTIME October 12, 2022 11:00pm July 08, 2024 1:03pm Start: 10-13-2022 take 20 mg by mouth once daily Fluoxetine Active 20 MG PO DAILY October 13, 2022 12:00am Start: 10-13-2022 take 10 mg by mouth once daily Fluoxetine Active 10 MG PO DAILY October 13, 2022 12:00am handicap placcard (10 sources) Start: 03-15-2021 handicap placc jennie Active 0 .Route .MEDSUPPLY March 15, 2021 3:37pm dx: debility, CHF Lifetime Start: 03-15-2021 handicap placc jennie Active 0 .Route .MEDSUPPLY March 15, 2021 12:00am dx: debility, CHF Lifetime Start: 03-15-2021 handicap placc jennie Active 0 .Route .MEDSUPPLY March 15, 2021 1:00am dx: debility, CHF Lifetime HYDROmorphone hydrochloride 2 mg oral tablet (4 sources) Opioid Agonist Start: 08-31-2021 take 1 tablet by mouth every four hours Hydromorphone (Dilaudid) 2 mg tablet Active 2 MG PO Q4H 30 5 August 31, 2021 Start: 08-21-2021 End: 04-28-2022 HYDROmorphone (DILAUDID) 2 m g tablet Indications: Chronic low back pain without sciatica, unspecified back pain laterality Take 1 tablet every 6 hours as needed for 2 days, then 1 tablet every 8 hours as needed for 2 days, then 1 tablet every 12 hours as needed for 2 days, then 1 tablet every 24 hours as needed for 2 days. 20 tablet 0 08/21/2021 08/29/2021 Active Comment on above: Take 1 tablet every 6 hours as needed for 2 days, then 1 tablet every 8 hours as needed for 2 days, then 1 tablet every 12 hours as needed for 2 days, then 1 tablet every 24 hours as needed for 2 days. ibuprofen 200 mg oral tablet (10 sources) Nonsteroidal Anti-inflammatory Drug Start: 05-19-2018 take 400-600 mg by mouth once daily as needed for pain Ibuprofen 200 MG tablet Active 400 - 600 mg PO DAILY as needed for Pain May 19, 2018 12:00am sensor 3 ml insulin glargine 100 unt/ml pen injector (3 sources) Insulin Analog Start: 06-06-2024 Insulin Glargine 100 unit/mL (3 mL) insulin pen, sensor Active 25 U SC TWICE A DAY June 06, 2024 12:00am Start: 10-09-2023 End: 06-06-2024 Insulin Glargine 100 unit/mL (3 mL) insulin pen, sensor Discontinued 20 U SC TWICE A DAY April 07, 2024 3:50pm June 06, 2024 12:59pm Insulin Glargine-Yfgn (1 source) Start: 07-31-2023 Insulin Glargi ne-Yfgn Active 20 UNIT SC TWICE A DAY July 31, 2023 12:00am Take with breakfast and supper daily 3 ml insulin lispro 100 unt/ml pen injector (5 sources) Insulin Analog Start: 06-06-2024 Insulin Lispro (Humalog Kwikpen Insulin) 100 unit/mL insulin pen Active 10 - 15 U SC 3 TIMES DAILY WITH MEALS June 06, 2024 12:00am Start: 07-31-2023 End: 06-06-2024 Insulin Lispro (Humalog Kwik pen Insulin) 100 unit/mL insulin pen Discontinued 10 U SC 3 TIMES DAILY WITH MEALS April 07, 2024 3:50pm June 06, 2024 12:59pm levothyroxine sodium 0.025 mg oral tablet (12 sources) l-Thyroxine Start: 01-16-2023 take 1 tablet by mouth once daily Levothyroxine 25 mcg tablet Active 25 ug PO DAILY January 16, 2023 3:21pm Start: 10-13-2022 End: 01-16-2023 Levothyroxine 25 mcg tablet Discontinued ug October 12, 2022 11:00pm January 16, 2023 3:21pm Start: 10-13-2022 End: 01-16-2023 Levothyroxine Discontinued M CG October 13, 2022 12:00am January 16, 2023 4:21pm Start: 10-07-2021 take 1 tablet by eb th once daily levothyroxine (SYNTHROID) 25 mcg tablet Take 1 tablet by mouth once daily. 0 10/07/2021 Active Comment on above: Take 1 tablet by eb th once daily. lidocaine 0.05 mg/mg medicated patch (10 sources) Antiarrhythmic, Amide Local Anesthetic Start: 06-06-2024 Lidocaine 5 % adhesive patch,medicated Active 1 NMA TOPICAL DAILY as needed for pain June 06, 2024 12:00am Start: 08-22-2021 lidocaine (ELLEN ONPAS) 4 % patch Apply 2 Patches as directed once daily. 0 08/22/2021 Active Comment on above: Apply 2 Patches as d irected once daily. LORazepam 1 mg oral tablet (8 sources) Benzodiazepine Start: 2 take 1 tablet by mouth once daily as needed for anxiety Lorazepam 1 mg tablet Active 1 mg PO DAILY as needed for anxiety October 12, 2022 11:00pm losartan potassium 50 mg oral tablet (20 sources) Angiotensin 2 Receptor Rocio Start: 1 take 50 mg by mouth twice daily Losartan Active 50 MG PO TWICE A DAY March 20, 2021 4:19pm Start: 08-14-2020 End: 01-18-2021 take 1 tablet by mouth once daily Losartan 50 mg tablet Discontinued 50 mg PO DAILY August 14, 2020 8:15am January 18, 2021 10:41am Start: 05-19-2018 End: 08-14-2020 take 1 tablet by mouth once daily Losartan 100 MG tablet Discontinued 100 mg PO DAILY May 19, 2018 12:00am August 14, 2020 8:16am Start: 03-01-2015 End: 03-25-2017 take 1 tablet by mouth twice daily Losartan 50 MG tablet Discontinued 50 mg PO TWICE A DAY 60 February 28, 2015 11:00pm March 25, 2017 10:03pm Comment on above: Take 100 mg by mouth once daily. NIFEdipine 60 mg osmotic 24 hr extended release oral tablet (20 sources) Dihydropyridine Calcium Channel Rocio Start: End: take 1 tablet by mouth once daily Nifedipine 60 mg tablet extended release 24hr Active 60 mg PO DAILY March 21, 2024 4:46pm Start: 08-31-2021 End: 09-18-2021 take 90 mg by mouth once daily Nifedipine Discontinued 90 MG PO DAILY August 31, 2021 8:21pm September 18, 2021 5:01pm Start: 08-22-2021 End: 02-26-2023 take 1 tablet by mouth once daily Nifedipine 90 mg tablet extended release 24hr Discontinued 90 mg PO DAILY September 16, 2022 3:46pm February 26, 2023 2:25pm Start: 01-31-2021 End: 09-18-2021 take 1 tablet by mouth once daily Nifedipine 60 mg tablet extended release 24hr Discontinued 60 mg PO DAILY June 12, 2021 10:13am August 31, 2021 7:21pm Start: 08-03-2020 End: 01-18-2021 take 1 tablet by mouth once daily as needed Nifedipine (Procardia Xl) 90 mg tablet extended release 24hr Discontinued 90 mg PO DAILY as needed January 18, 2021 7:55am January 18, 2021 10:35am Start: 03-07-2013 End: 05-17-2015 Nifedipine 60 MG tablet Disc ontinued 90 mg PO DAILY March 07, 2013 12:00am May 17, 2015 9:29am Start: 03-07-2013 End: 05-17-2015 take 90 mg by mouth once daily Nifedipine Discontinued 90 MG PO DAILY March 07, 2013 1:00am May 17, 2015 10:29am NIFEDIPINE ER OR AL Take 90 mg by mouth. 0 Suspended Comment on above: Take 90 mg by mouth. Take 1 tablet by eb th once daily. oxyCODONE hydrochloride 5 mg oral tablet (4 sources) Opioid Agonist Start: 07-08-2024 take 5-10 mg by mouth every eight hours as needed for pain Oxycodone 5 mg tablet Active 5 - 10 mg PO Q8H as needed for pain 15 3 July 08, 2024 Start: 07-30-2023 End: 07-08-2024 Oxycodone Myristate (Xtampza Er) 9 mg cap,sprinkl,ER12hr(DONT CRUSH) Discontinued 27 mg PO TWICE A DAY July 29, 2023 11:00pm July 08, 2024 1:05pm must administer with a meal/food Start: 07-30-2023 Oxycodone Myri state (Xtampza Er) 9 mg cap,sprinkl,ER12hr(DONT CRUSH) Active 18 MG PO TWICE A DAY July 30, 2023 12:00am must administer with a meal/food perflutren lipid microspheres 1.3 mL in NaCl (PF) 0.9% 10 mL injection (DEFINITY) (3 sources) Start: 10-09-2021 End: 01-08-2023 perflutren lipid microspheres 1.3 mL in NaCl (PF) 0.9% 10 mL injection (DEFINITY) perphenazine 8 mg oral tablet (1 source) Phenothiazine Start: 08-03-2020 take 8 mg by mouth four times daily Perphenazine Active 8 MG PO 4 TIMES DAILY August 03, 2020 6:55am QUEtiapine 200 mg oral tablet (20 sources) Atypical Antipsychotic Start: 06-06-2024 take 2 tablets by mouth twice daily Quetiapine 200 mg tablet Active 400 mg PO TWICE A DAY June 06, 2024 12:00am Start: 09-01-2022 End: 06-06-2024 take 1 tablet by mouth four times daily Quetiapine 200 mg tablet Discontinued 200 mg PO .Four times a day 120 May 10, 2024 4:45pm June 06, 2024 12:59pm Start: 10-22-2021 End: 09-01-2022 take 2 tablets by mouth at bedtime Quetiapine 50 mg tablet Discontinued 100 mg PO AT BEDTIME 60 October 22, 2021 3:58pm September 01, 2022 3:47pm Start: 10-22-2021 End: 09-01-2022 take 100 mg by mouth at bedtime Quetiapine Discontinue d 100 MG PO AT BEDTIME 60 October 22, 2021 4:58pm September 01, 2022 4:47pm Start: 08-21-2021 End: 10-22-2021 take 1 tablet by mouth at bedtime Quetiapine 50 mg tablet Discontinued 50 mg PO AT BEDTIME August 30, 2021 11:00pm October 22, 2021 3:58pm Comment on above: Take 1 tablet by eb th daily at bedtime. RABEprazole sodium 20 mg delayed release oral tablet (20 sources) Proton Pump Inhibitor Start: 03-25-2017 End: 02-12-2024 take 1 tablet by mouth once daily Rabeprazole (Aciphex) 20 mg tablet,delayed release (DR/EC) Active 20 mg PO DAILY February 12, 2024 12:58pm Comment on above: Take 20 mg by mouth once daily. Take 1 tablet by eb th once daily. 125 ml sodium chloride 9 mg/ml prefilled syringe (3 sources) Start: 10-09-2021 End: 01-08-2023 sodium chloride 0.9 % (flush) 10 mL (BD POSIFLUSH) Completed/Discontinued Medications Medication Drug Class(es) Dates Sig (Normalized) Sig (Original) acetaminophen 325 mg / HYDROcodone bitartrate 5 mg oral tablet (6 sources) Opioid Agonist Start: 10-13-2022 End: 07-30-2023 Hydrocodone-Acetami nophen 5-325 mg Tablet Discontinued 1 {tbl} PO TWICE A DAY as needed for Pain October 12, 2022 11:00pm July 30, 2023 2:03pm Start: 10-13-2022 End: 07-30-2023 take 1 tablet by mouth twice daily Hydrocodone-Acetaminophen Discontinued 1 TABLET PO TWICE A DAY October 13, 2022 12:00am July 30, 2023 3:03pm Start: 03-20-2021 take 1 tablet by eb th every four hours Hydrocodone-Acetaminophen Active 1 TABLE T PO Q4H 14 4 March 20, 2021 1:07pm acetaminophen 325 mg / oxyCODONE hydrochloride 5 mg oral tablet (20 sources) Opioid Agonist Start: 08-03-2020 End: 08-06-2020 Oxycodone-Acetaminophen 1 TABLET tablet Discontinued 1 {tbl} PO EVERY 6 HOURS NEEDED as needed for Pain 12 3 August 03 2021 El[place] 3rd, 2021 11:00pm August 05, 2020 11:02pm Start: 08-03-2020 End: 08-06-2020 take 1 tablet by mouth every six hours as needed Oxycodone-Acetaminophen Discontinued 1 TABLET PO EVERY 6 HOURS NEEDED 04 05August 03, 2020 August 06, 2020 12:02am Start: 02-22-2018 End: 02-25-2018 Oxycodone-Acetaminophen 1 TA BLET tablet Discontinued 1 {tbl} PO EVERY 6 HOURS NEEDED as needed for Pain 04 05February 21, 2018 11:00pm February 23, 2018 11:00pm February 24, 2018 11:11pm Start: 02-22-2018 End: 02-25-2018 take 1 tablet by mouth every six hours as needed Oxycodone-Acetaminophen Discontinued 1 TABLET PO EVERY 6 HOURS NEEDED 04 05February 22, 2018 12:00am February 25, 2018 12:11am Start: 07-04-2015 End: 02-13-2016 Oxycodone-Acetaminophen (Per cocet 10-325 Mg Tablet) 1 EACH tablet Discontinued 1 {tbl} PO EVERY 6 HOURS NEEDED as needed for Pain July 04, 2015 12:00am February 13, 2016 9:59am Start: 04-10-2015 End: 04-10-2015 Oxycodone-Acetaminophen 1 TA BLET tablet Discontinued 1 - 2 {tbl} PO EVERY 4 HOURS NEEDED as needed for Pain April 10, 2015 12:00am April 10, 2015 7:29pm Start: 04-10-2015 End: 04-10-2015 take 1 tablet by mouth every four hours as needed Oxycodone-Acetaminophen Discontinued 1 - 2 TABLET PO EVERY 4 HOURS NEEDED April 10, 2015 1:00am April 10, 2015 8:29pm Start: 07-24-2014 End: 03-30-2015 Oxycodone-Acetaminophen 1 TA BLET tablet Discontinued 1 - 2 {tbl} PO EVERY 4 HOURS NEEDED as needed for Pain July 23, 2014 11:00pm March 30, 2015 7:45am Start: 07-24-2014 End: 03-30-2015 take 1 tablet by mouth every four hours as needed Oxycodone-Acetaminophen Discontinued 1 - 2 TABLET PO EVERY 4 HOURS NEEDED July 24, 2014 12:00am March 30, 2015 8:45am [id number] actuat albuterol 0.09 mg/actuat metered dose inhaler (20 sources) beta2-Adrenergic Agonist Start: 10-03-2021 End: 06-06-2024 Albuterol Sulfate (Ventolin Hfa) 90 mcg/actuation HFA aerosol inhaler Discontinued 1 - 2 NMA INHALATION EVERY 4 HOURS NEEDED as needed for Wheezing 1 September 16, 2023 11:00pm June 06, 2024 12:53pm Start: 10-03-2021 take 1 puff(s) by in halation every four hours Albuterol Sulfate Active 2 PUFF INHALATION Q4H 8.5 October 03, 2021 12:00am Start: 08-14-2020 End: 10-20-2020 Albuterol Sulfate 90 mcg/act uation HFA aerosol inhaler Discontinued 2 NMA INHALATION EVERY 4 HOURS NEEDED as needed for Wheezing 8.5 August 14, 2020 7:28am October 20, 2020 12:50pm Start: 08-14-2020 End: 10-20-2020 take 1 puff(s) by inhalation every four hours as needed Albuterol Sulfate Discontinued 2 PUFF INHALATION EVERY 4 HOURS NEEDED 8.August 14, 2020 8:28am October 20, 2020 1:50pm Start: 04-03-2017 take 2 puff(s) by in halation every four hours as needed for wheezing albuterol HFA (VENTOLIN HFA) 90 mcg/actuation inhaler Indications: URI with cough and congestion , SOB (shortness of breath) , Wheezing Inhale 2 Puffs as instructed every 4 hours as needed for Wheezing/Shortness of Breath. 1 Inhaler 0 04/03/2017 Active Start: 03-25-2017 End: 08-14-2020 Albuterol Sulfate 1 INHALER inhaler Discontinued 2 NMA INHALATION EVERY 4 HOURS NEEDED as needed for Wheezing March 25, 2017 12:00am August 14, 2020 7:29am Start: 03-25-2017 End: 08-14-2020 take 1 puff(s) by inhalation every four hours as needed Albuterol Sulfate Discontinued 2 PUFF INHALATION EVERY 4 HOURS NEEDED March 25, 2017 1:00am August 14, 2020 8:29am Comment on above: Inhale 2 Puffs as in structed every 4 hours as needed for Wheezing/Shortness of Breath. amoxicillin 500 mg oral capsule (3 sources) Penicillin-class Antibacterial Start: End: take 1 capsule by mouth three times daily Amoxicillin 500 mg capsule Discontinued 500 mg PO THREE TIMES A DAY June 06, 2024 12:00am July 08, 2024 1:01pm Start: 01-14-2024 End: 01-21-2024 take 1 tablet by mouth three times daily Amoxicillin 500 mg tablet Discontinued 500 mg PO THREE TIMES A DAY 21 11January 14, 2024 3:52pm January 19, 2024 11:00pm January 20, 2024 11:05pm Start: 11-27-2023 End: 12-04-2023 take 1 tablet by mouth three times daily Amoxicillin 500 mg tablet Discontinued 500 mg PO THREE TIMES A DAY 21 11November 26, 2023 11:00pm December 02, 2023 11:00pm December 03, 2023 11:04pm amoxicillin 875 mg / clavulanate 125 mg oral tablet (15 sources) Penicillin-class Antibacterial Start: 10-17-2022 End: 07-30-2023 Amoxicillin-Pot Clavulanate 875-125 mg tablet Discontinued 1 {tbl} PO TWICE A DAY October 16, 2022 11:00pm July 30, 2023 2:02pm Start: 10-17-2022 End: 07-30-2023 take 1 tablet by mouth twice daily Amoxicillin-Pot Clavulanate Discontinued 1 TABLET PO TWICE A DAY October 17, 2022 12:00am July 30, 2023 3:02pm Start: 10-20-2020 End: 01-18-2021 Amoxicillin-Pot Clavulanate 875-125 mg tablet Discontinued 1 {tbl} PO TWICE A DAY October 19, 2020 11:00pm January 18, 2021 7:55am Start: 10-20-2020 End: 01-18-2021 take 1 tablet by mouth twice daily Amoxicillin-Pot Clavulanate Discontinued 1 TABLET PO TWICE A DAY October 20, 2020 12:00am January 18, 2021 8:55am atorvastatin 40 mg oral tablet (9 sources) HMG-CoA Reductase Inhibitor Start: 05-21-2018 End: 10-09-2021 take 1 tablet by mouth once daily at bedtime atorvastatin (LIPITOR) 40 mg tablet Take 1 tablet by mouth daily at bedtime. 60 tablet 2 05/21/2018 10/09/2021 Discontinued (Other) Comment on above: Take 1 tablet by eb th daily at bedtime. azithromycin 250 mg oral tablet (1 source) Macrolide Antimicrobial Start: 09-17-2023 End: 06-06-2024 take 2 tablets by mouth once daily Azithromycin 250 mg tablet Discontinued 250 mg PO DAILY September 16, 2023 11:00pm June 06, 2024 12:53pm take 2 tabs on first dose 168 hr buprenorphine 0.02 mg/hr transdermal system (8 sources) Partial Opioid Agonist Start: 10-13-2022 End: 07-30-2023 apply 20 ug transdermal route every hour Buprenorphine 20 mcg/hour patch weekly Discontinued October 12, 2022 11:00pm July 30, 2023 2:02pm Start: 10-07-2021 End: 11-06-2021 apply 1 dose transdermal route every week buprenorphine (BUTRANS) 5 mcg/hour Apply 1 Patch as directed one time a week for 30 days. 0 10/07/2021 Active Comment on above: Apply 1 Patch as dir ected one time a week for 30 days. cetirizine hydrochloride 10 mg oral tablet (9 sources) Histamine-1 Receptor Antagonist Start: 08-22-19 take 1 tablet by mouth once daily as needed cetirizine (ZYRTEC) 10 mg tablet Take 1 tablet by mouth once daily as needed (allergy). 0 08/21/2021 Active Comment on above: Take 1 tablet by eb th once daily as needed (allergy). chlorthalidone 25 mg oral tablet (13 sources) Thiazide-like Diuretic Start: 05-21-19 End: 08-15-19 take 1 tablet by mouth once daily Chlorthalidone 25 MG tablet Discontinued 25 mg PO DAILY August 02, 2020 11:00pm August 14, 2020 7:24am Comment on above: Take 1 tablet by eb th once daily. citalopram 20 mg oral tablet (9 sources) Serotonin Reuptake Inhibitor Start: 10-14-19 End: 10-18-19 Citalopram 20 mg tablet Discontinued mg October 12, 2022 11:00pm October 17, 2022 11:50am Start: 10-13-2022 End: 10-17-2022 Citalopram Discontinued MG J 2022 12:00am October 17, 2022 12:50pm Start: 10-07-2021 take 1 tablet by eb th once daily citalopram hydrobromide (CELEXA) 10 mg tablet Take 1 tablet by mouth once daily. 0 10/07/2021 Active Comment on above: Take 1 tablet by eb th once daily. clopidogrel 75 mg oral tablet (20 sources) P2Y12 Platelet Inhibitor Start: 05-21-19 End: 07-30-19 24 take 1 tablet by mouth once daily Clopidogrel 75 mg tablet Discontinued 75 mg PO DAILY September 16, 2022 3:45pm July 30, 2023 2:03pm Comment on above: Take 1 tablet by eb th once daily. fenofibrate 160 mg oral tablet (20 sources) Peroxisome Proliferator Receptor alpha Agonist Start: 08-04-19 End: 07-30-19 take 1 tablet by mouth once daily Fenofibrate 160 mg tablet Discontinued 160 mg PO DAILY September 18, 2021 3:57pm July 30, 2023 2:03pm Comment on above: Take 160 mg by mouth once daily. ferrous sulfate 325 mg oral tablet (5 sources) Start: 10-18-19 End: 07-30-19 take 1 tablet by mouth once daily Ferrous Sulfate (Ferosul) 325 mg (65 mg iron) Tablet Discontinued 325 mg PO DAILY@1200 30 October 16, 2022 11:00pm July 30, 2023 2:03pm hydrALAZINE hydrochloride 50 mg oral tablet (20 sources) Arteriolar Vasodilator Start: 09-01-19 End: 07-30-19 24 Hydralazine Discontinued 150 MG PO THREE TIMES A DAY 810 September 16, 2022 4:46pm July 30, 2023 3:03pm Hold for SBP less than 130 mmHg Start: 08-21-2021 End: 09-20-2021 take 3 tablets by mouth every eight hours hydrALAZINE (APRESOLINE) 50 mg tablet Take 3 tablets by mouth every 8 hours. 270 tablet 0 08/21/2021 Active Start: 03-25-2021 End: 07-30-2023 Hydralazine 50 mg tablet Discontinued 150 mg PO THREE TIMES A DAY 810 September 16, 2022 3:46pm July 30, 2023 2:03pm Hold for SBP less than 130 mmHg Comment on above: Take 3 tablets by mo [facility] every 8 hours. Insulin Glargine-Yfgn 100 unit/mL (3 mL) Insulin Pen (1 source) Start: 4 End: 4 Insulin Glargine-Yfgn 100 unit/mL (3 mL) Insulin Pen Discontinued 20 U SC TWICE A DAY July 30, 2023 11:00pm October 09, 2023 2:24pm Take with breakfast and supper daily Insulin Glargine-Yfgn 100 unit/mL (3 mL) insulin pen (1 source) Start: 4 End: 4 Insulin Glargine-Yfgn 100 unit/mL (3 mL) insulin pen Discontinued 20 U SC TWICE A DAY October 09, 2023 2:22pm October 09, 2023 3:08pm Take with breakfast and supper daily isosorbide dinitrate 30 mg oral tablet (20 sources) Nitrate Vasodilator Start: 3 End: 4 take 1 tablet by mouth twice daily Isosorbide Dinitrate 30 mg tablet Discontinued 30 mg PO TWICE A DAY October 13, 2022 9:42pm July 30, 2023 2:04pm Start: 08-21-2021 End: 10-13-2022 take 1 tablet by mouth three times daily Isosorbide Dinitrate 30 mg tablet Discontinued 30 mg PO THREE TIMES A DAY 270 September 18, 2021 3:58pm October 13, 2022 9:42pm Comment on above: Take 1 tablet by [facility] three times daily. iv contrast (will be provided with radiology test) (2 sources) Start: 10-10-19 End: 10-11-19 inject 1 dose intravenously once iv contrast (will be provided with radiology test) Indications: Marfan syndrome , Marfan's syndrome , S/P mitral valve repair , Dissection of thoracoabdominal aorta (HCC) , Disorder of artery or arteriole (HCC) , Adverse effect of treatment, sequela CTA CHST/ABD/PEL. No IV access, insert saline lock prior to the sedation, infusion, injection for imaging exam. Discontinue saline lock post exam. If Pt. has a central line or IVAD, may access for administration according to line specific nursing protocol. Once exam is complete flush line and de-access according to line specific nursing protocol in the CT contrast administration guidelines link. 1 Each 0 10/09/2021 10/10/2021 Start: 10-09-2021 End: 10-10-2021 inject 1 dose intravenously once iv contrast (will be provided with radiology test) Indications: Marfan syndrome , Marfan's syndrome , S/P mitral valve repair , Dissection of thoracoabdominal aorta (HCC) , Disorder of artery or arteriole (HCC) , Adverse effect of treatment, sequela CTA Head/Neck W No IV access, insert saline lock prior to the sedation, infusion, injection for imaging exam. Discontinue saline lock post exam. If Pt. has a central line or IVAD, may access for administration according to line specific nursing protocol. Once exam is complete flush line and de-access according to line specific nursing protocol in the CT contrast administration guidelines link. 1 Each 0 10/09/2021 10/10/2021 Comment on above: CTA CHST/ABD/PEL. No IV access, insert saline lock prior to the sedation, infusion, injection for imaging exam. Discontinue saline lock post exam. If Pt. has a central line or IVAD, may access for administration according to line specific nursing protocol. Once exam is complete flush line and de-access according to line specific nursing protocol in the CT contrast administration guidelines link. CTA Head/Neck W No I V access, insert saline lock prior to the sedation, infusion, injection for imaging exam. Discontinue saline lock post exam. If Pt. has a central line or IVAD, may access for administration according to line specific nursing protocol. Once exam is complete flush line and de-access according to line specific nursing protocol in the CT contrast administration guidelines link. methocarbamol 500 mg oral tablet (12 sources) Muscle Relaxant Start: 08-22-19 22 take 1 tablet by mouth every six hours as needed methocarbamol (ROBAXIN) 500 mg tablet Take 1 tablet by mouth every 6 hours as needed. 15 tablet 0 08/21/2021 Active Comment on above: Take 1 tablet by eb every 6 hours as needed. pantoprazole 40 mg delayed release oral tablet (5 sources) Proton Pump Inhibitor Start: 08-23-19 End: 10-08-19 take 1 tablet by mouth once daily, then take 6 tablets by mouth in the morning pantoprazole DR (PROTONIX) 40 mg tablet Take 1 tablet by mouth DAILY (6 AM). 30 tablet 0 08/22/2021 10/07/2021 Discontinued Comment on above: Take 1 tablet by eb DAILY (6 AM). potassium chloride 10 meq extended release oral capsule (20 sources) Start: 08-15-19 End: 01-19-20 take 1 capsule by mouth once daily Potassium Chloride 10 mEq capsule, extended release Discontinued 10 meq PO DAILY August 13, 2020 11:00pm January 18, 2021 10:36am Start: 08-03-2020 End: 08-14-2020 take 2 tablets by mouth once daily Potassium Chloride 20 MEQ tablet Discontinued 40 meq PO DAILY August 02, 2020 11:00pm August 14, 2020 7:24am Start: 08-03-2020 End: 08-14-2020 take 40 mEq by mouth once daily Potassium Chloride Dis continued 40 MEQ PO DAILY August 03, 2020 12:00am August 14, 2020 8:24am Start: 05-21-2018 End: 08-14-2020 take 1 tablet by mouth once daily Potassium Chloride 10 MEQ tablet extended release Discontinued 10 meq PO DAILY August 02, 2020 11:00pm August 14, 2020 7:55am Comment on above: Take 1 tablet by eb once daily. pregabalin 150 mg oral capsule (10 sources) Start: 2016 End: 2020 take 1 capsule by mouth twice daily Pregabalin 150 MG capsule Discontinued 150 mg PO TWICE A DAY March 25, 2017 12:00am January 18, 2021 7:56am pseudoephedrine hydrochloride 60 mg oral tablet (10 sources) alpha-Adrenergic Agonist Start: 2018 End: 2020 Pseudoephedrine Hcl 60 MG tablet Discontinued 60 mg PO NEEDED as needed for Sinus Congestion May 19, 2018 12:00am January 18, 2021 7:56am riboflavin 100 mg oral tablet (5 sources) Start: 2018 End: 2021 take 1 tablet by mouth once daily riboflavin, vitamin B2, (VITAMIN B2) 100 mg tab Take 1 tablet by mouth once daily. 60 tablet 2 05/22/2018 09/16/2021 Discontinued Comment on above: Take 1 tablet by eb th once daily. sildenafil 100 mg oral tablet (3 sources) Phosphodiesterase 5 Inhibitor Start: 2021 take 1 tablet by mouth once sildenafil (VIAGRA) 100 mg tablet 1 TABLET(S) ORALLY 1 TIMES DIRECTED 0 09/23/2021 Active Comment on above: 1 TABLET(S) ORALLY 1 TIMES DIRECTED vitamin b12 2 mg oral tablet (7 sources) Vitamin B12 Start: 2021 End: 2021 take 1 tablet by mouth once daily cyanocobalamin 2,000 mcg tab Take 1 tablet by mouth once daily. 90 tablet 0 09/16/2021 Active Comment on above: Take 1 tablet by eb th once daily. zolpidem tartrate 10 mg oral tablet (19 sources) gamma-Aminobutyric Acid-ergic Agonist Start: 2020 End: 2022 take 1 tablet by mouth at bedtime Zolpidem 10 mg tablet Discontinued 10 mg PO AT BEDTIME April 30, 2023 4:25pm April 30, 2023 4:32pm Comment on above: Take 10 mg by mouth daily at bedtime. Problems Active Problems Problem Classification Problem Date Documented Date Episodic/Chronic Abdominal pain (10 sources) Left flank pain; Translations: [Unspecified abdominal pain] 05-20-2018 Episodic Acute and unspecified renal failure (16 sources) Acute injury of kidney; Translations: [Acute kidney failure, unspecified] Onset: 08-08-2021 08-08-2021 Episodic Acute bronchitis (1 source) Acute bronchitis co-occurrent with wheeze; Translations: [Acute bronchitis, unspecified] 09-26-2023 Episodic Aortic; peripheral; and visceral artery aneurysms (20 sources) Dissection of thoracic aorta; Translations: [Dissection of thoracic aorta] Onset: 05-20-2018 05-21-2018 Chronic Complications of surgical procedures or medical care (1 source) Complication of procedure; Translations: [Complication of surgical and medical care, unspecified, sequela] Episodic Congestive heart failure; nonhypertensive (6 sources) Congestive heart failure; Translations: [Heart failure, unspecified] 10-13-2022 Chronic Coronary atherosclerosis and other heart disease (10 sources) Non-obstructive atherosclerosis of coronary artery; Translations: [Atherosclerotic heart disease of [place] coronary artery without angina pectoris] 08-14-2020 Chronic Deficiency and other anemia (16 sources) Anemia; Translations: [Anemia, unspecified] Onset: 08-08-2021 08-10-2021 Episodic Comment on above: IN THE PAST Deficiency and other anemia (1 source) Anemia, unspecified; Translations: [Anemia, unspecified] 10-17-2022 Episodic Diabetes mellitus without complication (6 sources) Newly diagnosed diabetes; Translations: [Type 2 diabetes mellitus without complications] Onset: 08-01-2023 07-30-2023 Chronic Disorders of lipid metabolism (20 sources) Hyperlipidemia; Translations: [Hyperlipidemia, unspecified] Onset: 11-27-2016 08-07-2021 Chronic Esophageal disorders (12 sources) Gastroesophageal reflux disease; Translations: [Gastro-esophageal reflux disease without esophagitis] Onset: 02-13-2016 04-30-2021 Chronic Essential hypertension (20 sources) Hypertensive disorder; Translations: [Essential (primary) hypertension] Onset: 02-13-2016 08-07-2021 Chronic Comment on above: CONTROLLED WITH MEDS Fluid and electrolyte disorders (20 sources) Hypokalemia; Translations: [Hypokalemia] 05-21-2018 Episodic Hypertension with complications and secondary hypertension (9 sources) Hypertensive emergency; Translations: [Hypertensive emergency] 08-15-2021 Chronic Mood disorders (6 sources) Depressive disorder; Translations: [Depression] 10-15-2022 Chronic Comment on above: ON MED Nonspecific chest pain (20 sources) Chest wall pain; Translations: [Other chest pain] 03-26-2021 Episodic Other circulatory disease (10 sources) H/O: major vascular surgery; Translations: [Presence of other vascular implants and grafts] Onset: 03-08-2011 08-13-2020 Chronic Comment on above: median sternotomy, v alve sparing aortic root replacement with reimplantation of the coronary arteries, and the aortic valve (Niels's procedure) with 32-mm Valsalva Dacron graft, reconstruction of the right coronary artery, coronary bypass grafting x1 with saphenous vein graft to the right coronary artery, ascending aorta and arch repair with 28-mm Dacron graft, frozen elephant trunk procedure with direct placement of a 34 mm x 10 cm Emerson-Tag thoracic stent graft, completion aortogram through percutaneous access in the right femoral artery, mitral valve repair with plication of the anterior leaflet and right axillary aortic cannulation with an 8-mm graft. Other circulatory disease (1 source) Disorder of artery; Translations: [Disorder of arteries and arterioles, unspecified] Chronic Other circulatory disease (2 sources) Presence of other vascular implants and grafts; Translations: [Blood vessel replaced by other means] Onset: 03-08-2011 10-17-2022 Chronic Other circulatory disease (14 sources) H/O: cardiovascular disease; Translations: [Personal history of other diseases of the circulatory system] 08-15-2021 Episodic Other circulatory disease (1 source) Personal history of other diseases of the circulatory system; Translations: [Personal history of other diseases of circulatory system] 10-17-2022 Episodic Other congenital anomalies (20 sources) Marfan's syndrome; Translations: [Marfan's syndrome, unspecified] Onset: 08-01-2011 08-07-2021 Chronic Other congenital anomalies (1 source) Marfan's syndrome, unspecified; Translations: [Marfan syndrome] 10-17-2022 Chronic Other diseases of kidney and ureters (10 sources) Cyst of kidney; Translations: [Cyst of kidney, acquired] 05-20-2018 Episodic Other ear and sense organ disorders (9 sources) Infection of external auditory canal; Translations: [Other infective otitis externa, unspecified ear] 07-25-2021 Chronic Other ear and sense organ disorders (2 sources) Other infective otitis externa, unspecified ear; Translations: [Infective otitis externa, unspecified] Chronic Other hematologic conditions (4 sources) Raised cardiac enzyme or marker; Translations: [Other specified abnormalities of plasma proteins] 10-13-2022 Episodic Other hematologic conditions (2 sources) Other specified abnormalities of plasma proteins; Translations: [Other abnormal blood chemistry] 10-17-2022 Episodic Other injuries and conditions due to external causes (1 source) Unspecified injury of left ankle, initial encounter; Translations: [Unspecified injury of left ankle, initial encounter] Onset: 07-20-2024 Episodic Other lower respiratory disease (12 sources) Dyspnea; Translations: [Shortness of breath] Episodic Other lower respiratory disease (1 source) Restrictive lung disease; Translations: [Other disorders of lung] Episodic Other nervous system disorders (12 sources) Perineurial cyst; 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] Onset: 11-27-2016 11-27-2016 Chronic Other nervous system disorders (2 sources) Sensory neuropathy; Translations: [Polyneuropathy, unspecified] Chronic Other nervous system disorders (1 source) Lesion of right common peroneal nerve; Translations: [Lesion of lateral popliteal nerve, right lower limb] Chronic Other nervous system disorders (1 source) Bilateral meralgia paresthetica; Translations: [Meralgia paresthetica, bilateral lower limbs] Chronic Other nervous system disorders (5 sources) Disorder of brain; Translations: [Encephalopathy, unspecified] 10-15-2022 Chronic Other nervous system disorders (2 sources) Encephalopathy, unspecified; Translations: [Encephalopathy, unspecified] 10-17-2022 Chronic Other nutritional; endocrine; and metabolic disorders (11 sources) Obese class II; Translations: [Obesity, unspecified] Onset: 08-11-2021 08-11-2021 Chronic Other nutritional; endocrine; and metabolic disorders (4 sources) Obese class I; Translations: [Obesity, unspecified] Onset: 10-18-2021 Chronic Other screening for suspected conditions (not mental disorders or infectious disease) (20 sources) Cardiovascular stress test abnormal; Translations: [Abnormal result of other cardiovascular function study] 03-21-2021 Episodic Other upper respiratory infections (10 sources) Acute maxillary sinusitis; Translations: [Acute maxillary sinusitis, unspecified] 10-20-2020 Episodic Paralysis (10 sources) Left hemiparesis; Translations: [Hemiplegia, unspecified affecting left nondominant side] 05-21-2018 Chronic Pneumonia (except that caused by tuberculosis or sexually transmitted disease) (7 sources) Pneumonia; Translations: [Pneumonia, unspecified organism] 10-14-2022 Episodic Respiratory failure; insufficiency; arrest (adult) (20 sources) Acute hypoxemic and hypercapnic respiratory failure; Translations: [Acute respiratory failure with hypoxia] Onset: 08-08-2021 08-08-2021 Episodic Spondylosis; intervertebral disc disorders; other back problems (20 sources) Chronic low back pain; Translations: [Chronic low back pain without sciatica] Onset: 05-22-2018 05-22-2018 Episodic Sprains and strains (11 sources) Strain of muscle of chest wall; Translations: [Strain of muscle and tendon of front wall of thorax, initial encounter] 03-26-2021 Episodic Substance-related disorders (1 source) Opioid dependence, uncomplicated; Translations: [Opioid dependence, uncomplicated] Onset: 01-12-2024 Chronic Unclassified (12 sources) Normal coronary arteries; Translations: [Normal coronary arteries] Onset: 11-27-2016 11-27-2016 Past or Other Problems Problem Classification Problem Date Documented Da te Episodic/Chronic Coronary atherosclerosis and other heart disease (2 sources) Presence of aortocoronary bypass graft; Translations: [Aortocoronary bypass status] Onset: 03-08-2011 10-17-2022 Episodic Diabetes mellitus without complication (6 sources) Hyperglycemia; Translations: [Hyperglycemia, unspecified] Onset: 08-07-2023 07-30-2023 Episodic Headache; including migraine (12 sources) Headache; Translations: [Intractable episodic headache] Onset: 05-20-2018 05-21-2018 Episodic Other lower respiratory disease (10 sources) Multiple nodules of lung; Translations: [Other nonspecific abnormal finding of lung field] Onset: 08-27-2021 Episodic Other lower respiratory disease (3 sources) Shortness of breath; Translations: [Shortness of breath] Onset: 09-23-2023 10-17-2022 Episodic Pleurisy; pneumothorax; pulmonary collapse (11 sources) Atelectasis; Translations: [Atelectasis] Onset: 08-10-2021 08-10-2021 Episodic Residual codes; unclassified (20 sources) History of repair of mitral valve; Translations: [Other specified postprocedural states] Onset: 03-08-2011 08-07-2021 Episodic Comment on above: plication of the ant erior leaflet and right axillary aortic cannulation with an 8 mm graft Residual codes; unclassified (11 sources) History of repair of aneurysm of abdominal aorta; Translations: [Other specified postprocedural states] Onset: 06-28-2013 08-07-2021 Episodic Residual codes; unclassified (2 sources) History of repair of thoracic aortic aneurysm; Translations: [Other specified postprocedural states] Onset: 06-28-2013 08-07-2021 Episodic Residual codes; unclassified (2 sources) Other specified postprocedural states; Translations: [Personal history of surgery to heart and great vessels, presenting hazards to health] Onset: 03-08-2011 10-17-2022 Episodic Results Test Name Value Interpretation Reference Range Facility Absolute neutrophil countOrd ered By: Blanca Julio on 07-08-2024 Neutrophils (Bld) [#/Vol] 6.4 10*3/uL 2.0-7.7 [facility] Anion gap in Serum or Plasma Ordered By: Blanca Julio on 07-08-2024 Anion gap [Moles/Vol] 14 mmol/L 5-15 [facility] Ankle min 3 Viewson 07-09-19 25 Ankle min 3 Views [facility] Imaging Services [address] [place] [address] Ankle min 3 Views MR#: [id number] Acct: [id number] Name: LEIDY DC Rep #: [id number] : 1970 M 53 From: Daquan Dougherty MD PCP: Dr. Dhaval Braden MD Status: REG ER Study: Ankle min 3 Views Date of Exam: 07/08/24 Exam# [id number] Ordering Dr: Blanca Julio DO PROCEDURE: ANKLE MIN 3 VIEWS REASON FOR EXAM: Injury. Pain TECHNIQUE: 3 views of the left ankle COMPARISON: None FINDINGS: No visible fracture line. No suspicious bone lesion. Ossicles at the tip of the medial malleolus. Tiny radiopaque density at the tip of the lateral malleolus. Normal alignment. Mortise appears intact. No effusion. Marked soft tissue swelling surrounds the ankle. RAD/Ankle min 3 Views IMPRESSION: Ossicles at the tip of the medial malleolus most likely related to old remote trauma. Tiny radiopaque density at the tip of the lateral malleolus may represent old trauma. Can not exclude a tiny acute avulsion fracture. Marked soft tissue swelling. Reading Location: [place] [address] CC: Dr. Blanca Julio DO; Dr. Dhaval Braden MD Book Packer: Signed Normal [facility] BUN/creatinine ratioOrdered By: Blanca Julio on 07-08-2024 Urea nitrogen/Creatinine [Mass ratio] 13.7 mg/mg - [facility] Basic Metabolic Profile (BMP )on 07-08-2024 BUN/CRE 13.7 RATIO Normal - [facility] Comment on above: Performed By: #### L 500.2500, L100.0100 #### [facility] [address] [place], [address] Calcium [Mass/Vol] 9.1 mg/dL Normal 7.6-11.0 [facility] Comment on above: Performed By: #### L 500.2500, L100.0100 #### [facility] [address] [place], [address] Chloride [Moles/Vol] 100 mmol/L Normal 98-108 [facility] Comment on above: Performed By: #### L 500.2500, L100.0100 #### [facility] [address] [place], [address] CO2 [Moles/Vol] 24.6 mmol/L Normal 21.0-32.0 [facility] Comment on above: Performed By: #### L 500.2500, L100.0100 #### [facility] [address] [place], [address] Creatinine [Mass/Vol] 1.27 mg/dL High 0.70-1.20 [facility] Comment on above: Performed By: #### L 500.2500, L100.0100 #### [facility] [address] [place], [address] GAP 14 Normal 5-15 [facility] Comment on above: Performed By: #### L 500.2500, L100.0100 #### [facility] [address] [place], [address] GFR/1.73 sq M.predicted among non-blacks MDRD (S/P/Bld) [Vol rate/Area] 67 mL/min/{1.73_m2} Normal >60 [facility] Comment on above: Result Comment: mL/m in/1.73m2 CKD-EPI Creatinine Equation (2020) Performed By: #### L 500.2500, L100.0100 #### [facility] [address] [place], [address] Glucose [Mass/Vol] 128 mg/dL High 70-99 [facility] Comment on above: Performed By: #### L 500.2500, L100.0100 #### [facility] [address] [place], [address] Potassium [Moles/Vol] 3.7 mmol/L Normal 3.3-5.1 [facility] [facility] Comment on above: Performed By: #### L 500.2500, L100.0100 #### [facility] [address] [place], [address] Sodium [Moles/Vol] 138 mmol/L Normal 133-145 [facility] Comment on above: Performed By: #### L 500.2500, L100.0100 #### [facility] [address] [place], [address] Urea nitrogen [Mass/Vol] 17 mg/dL Normal 4-19 [facility] Comment on above: Performed By: #### L 500.2500, L100.0100 #### [facility] [address] [place], [address] Basophil percentageOrdered B y: Blanca Julio on 07-08-2024 Basophils/100 WBC (Bld) 0.6 % 0-1 [facility] Bilirubin Test strip Ql (U)O rdered By: Blanca Julio on 07-08-2024 Bilirubin Ql (U) Negative Negative [facility] Brain/Head without Contrasto n 07-08-2024 Brain/Head without Contrast [facility] Imaging Services [address] [place], [place] [address] Brain/Head without Contrast MR#: [id number] Acct: [id number] Name: LEIDY DC Rep #: [id number] : 1970 M 53 From: Daquan Dougherty MD PCP: Dr. Dhaval Braden MD Status: [facility] Study: Brain/Head without Contrast Date of Exam: 11/25 Exam# [id number] Ordering Dr: Blanca Julio DO EXAM: CT BRAIN WITHOUT CONTRAST CLINICAL HISTORY: WEAKNESS. PATIENT FELL. TRAUMA. COMPARISON: CT brain dated 03/20/2021. MRI brain dated 03/21/2021. TECHNIQUE: Contiguous axial scans of 3.75 mm slice thicknesses with sagittal and coronal reconstruction images. One or more dose reduction techniques were utilized (e.g., automated exposure control, adjustment of mA and/or kv according to patient size, use of iterative reconstruction technique). FINDINGS: Cerebrum: No intraparenchymal hemorrhage. No abnormal areas of encephalomalacia. No mass effect or midline shift. Berg-white matter differentiation is normal. Ventricles and cisterns: Appropriate size for patient's age. Extra-axial fluid: Unremarkable. Posterior fossa: Unremarkable cerebellum. No abnormalities involving the brainstem. Paranasal sinuses: Mild mucoperiosteal thickening in both maxillary sinuses. Vasculature: Unremarkable. Mastoid air cells: Normal. Calvarium: Unremarkable. Soft tissues: Unremarkable. CT/Brain/Head without Contrast IMPRESSION: 1. No acute intracranial abnormalities are demonstrated. Reading Location: [place] [address] CC: Dr. Blanca Julio DO; Dr. Dhaval Braden MD Book Packer: Signed Normal [facility] CBC W/Diff, Automatedon Absolute Lymph 1.01 X10 3/uL Normal 0.83-4.51 [facility] Comment on above: Performed By: #### L 500.2500, L100.0100 #### [facility] [address] [place], [address] Absolute Neut 6.4 X10 3/uL Normal 2.0-7.7 [facility] Comment on above: Performed By: #### L 500.2500, L100.0100 #### [facility] [address] [place], [address] Basophils/100 WBC (Bld) 0.6 % Normal 0-1 [facility] Comment on above: Performed By: #### L 500.2500, L100.0100 #### [facility] [address] [place], [address] Eosinophils/100 WBC (Bld) 2.1 % Normal 0-5 [facility] Comment on above: Performed By: #### L 500.2500, L100.0100 #### [facility] [address] [place], [address] Erythrocyte distribution width (RBC) [Ratio] 13.1 % Normal 11.6-14.6 [facility] Comment on above: Performed By: #### L 500.2500, L100.0100 #### [facility] [address] [place], [address] Hematocrit (Bld) [Volume fraction] 37.1 % Low 40-54 [facility] Comment on above: Performed By: #### L 500.2500, L100.0100 #### [facility] [address] [place], [address] Hemoglobin (Bld) [Mass/Vol] 12.6 g/dL Low 13.0-16.5 [facility] Comment on above: Performed By: #### L 500.2500, L100.0100 #### [facility] [address] [place], [address] IG% 0.800 Normal 0.0-0.9 [facility] Comment on above: Result Comment: IG% - Immature Granulocytes (promyelocytes, myelocytes and metamyelocytes) > 1% indicates that a LEFT SHIFT is Present. Performed By: #### L 500.2500, L100.0100 #### [facility] [address] [place], [address] Lymphocytes/100 WBC (Bld) 11.9 % Low 19-41 [facility] Comment on above: Performed By: #### L 500.2500, L100.0100 #### [facility] [address] [place], [address] MCH (RBC) [Entitic mass] 29.1 pg Normal 27.0-32.0 [facility] Comment on above: Performed By: #### L 500.2500, L100.0100 #### [facility] [address] [place], [address] MCHC (RBC) [Mass/Vol] 34.0 g/dL Normal 32-36 [facility] Comment on above: Performed By: #### L 500.2500, L100.0100 #### [facility] [address] [place], [address] MCV (RBC) [Entitic vol] 85.7 fL Normal 80-[address] [facility] Comment on above: Performed By: #### L 500.2500, L100.0100 #### [facility] [address] [place], [address] Monocytes/100 WBC (Bld) 8.9 % Normal 0-[address] [facility] Comment on above: Performed By: #### L 500.2500, L100.0100 #### [facility] [address] [place], [address] Neutrophils/100 WBC (Bld) 75.7 % High 47-70 [facility] Comment on above: Performed By: #### L 500.2500, L100.0100 #### [facility] [address] [place], [address] Nucleated RBC (Bld) [#/Vol] 0 10*3/uL Normal 0-5 [facility] Comment on above: Performed By: #### L 500.2500, L100.0100 #### [facility] [address] [place], [address] Platelet mean volume (Bld) [Entitic vol] 9.3 fL Normal 6.2-12.0 [facility] Comment on above: Performed By: #### L 500.2500, L100.0100 #### [facility] [address] [place], [address] Platelets (Bld) [#/Vol] 226 10*3/uL Normal 150-450 [facility] Comment on above: Performed By: #### L 500.2500, L100.0100 #### [facility] [address] [place], [address] RBC (Bld) [#/Vol] 4.33 10*6/uL Low 4.6-6.2 [facility] Comment on above: Performed By: #### L 500.2500, L100.0100 #### [facility] [address] [place], [address] RDW SD 40.8 fl Normal 35.1-43.9 [facility] Comment on above: Performed By: #### L 500.2500, L100.0100 #### [facility] [address] [place], [address] WBC (Bld) [#/Vol] 8.5 10*3/uL Normal 4.4-11.0 [facility] Comment on above: Performed By: #### L 500.2500, L100.0100 #### [facility] [address] [place], [address] Carbon dioxide, total [Moles /volume] in Central venous bloodOrdered By: Blanca Julio on 07-08-2024 CO2 [Moles/Vol] 24.6 mmol/L 21.0-32.0 [facility] Chloride assayOrdered By: Adam Julio on 07-08-2024 Chloride [Moles/Vol] 100 mmol/L 98-108 [facility] Emergency Department Summary on 07-08-2024 Emergency Department Summary [facility] Medical Records Department [address] [place] [address] Emergency Department Summary 07/08/24 MR#: [id number] Acct: [id number] Name: LEIDY DC Rep #: [id number] : 1970 53 From: Blanca Julio DO PCP: Dr. Dhaval Braden MD Status:REG ER Location: ED HPI History of Present Illness Chief Complaint: Lower Extremity Injury Informant: patient Narrative Narrative: Patient is a 53-year-old male with history of Marfan syndrome, aortic dissection, dissection of the vertebral artery, hypertension and chronic back pain with recent placement of what sounds like intrathecal pain pump (with Dr. Alegre) 1 month ago presenting with weakness, fall and left ankle pain and swelling. Patient states for the past few days his legs have been feeling "weird" and he has been shuffling more. He states he has not felt right for a few days. Last night he woke up around 2 AM and was stumbling. He fell down and maybe twisted his leg when he was falling. He was able to get himself back up and went to the bathroom. After that he went to the refrigerator and squatted down to look for some food. He then fell and felt a large pop in his left ankle and had immediate pain. He said pain and swelling since. He states he did hit his head. Denies any loss of conscious. Does not take any blood thinners but is on a daily aspirin. Notes he has had worsening of his back pain. He cannot get a hold of his pain management doctor because he is out of town. Denies any bowel or bladder incontinence. Denies any saddle anesthesia. No other complaints or concerns reported at this time. Does have chronic pain is also on Xtampza 27. [facility] Medical History Wears glasses Broken teeth Thyroid disease Insulin dependent diabetes mellitus Dietary restriction Leg cramps History of pain when walking History of edema History of echocardiogram Cardiology follow-up encounter Pain Bipolar disorder Anxiety Hypothyroidism Non-smoker BiPAP (biphasic positive airway pressure) dependence Restrictive lung disease Anemia Depression History of aortic dissection Marfan syndrome CHF (congestive heart failure) Infection of external auditory canal Abnormal stress test Uncontrolled hypertension Acute maxillary sinusitis, unspecified Nonobstructive atherosclerosis of coronary artery Hyperkalemia GERD (gastroesophageal reflux disease) Dissection of vertebral artery Hyperlipidemia Dissecting aneurysm of ascending aorta Essential (primary) hypertension (05/20/18) Marfans syndrome Home Medications ???Medication ???Instructions ???Recorded ???Last Taken ???Type acetaminophen 500 mg tablet 1,000 mg PO DAILY PRN Pain 9 07/07/24 History ibuprofen 200 mg tablet 400 - 600 mg PO DAILY PRN Pain 07/07/24 History handicap placcard #1 ea 03/15/21 Unknown Rx albuterol sulfate 90 mcg/actuation 2 puff inhalation Q4H PRN Unknown Rx aerosol inhaler shortness of breath or wheezing #8.5 grams lorazepam 1 mg tablet 1 mg PO DAILY PRN anxiety 10/13/22 06/09/24 History levothyroxine 25 mcg tablet 25 mcg PO DAILY #90 tabs 01/16/23 07/08/24 Rx zolpidem 10 mg tablet 10 mg PO QHS PRN sleep #30 tabs 07/07/24 Rx clonidine HCl 0.1 mg tablet 0.1 mg PO BID blood pressure #180 09/25/23 07/08/24 Rx tabs carvedilol 25 mg tablet 25 mg PO BID #180 tabs 11/04/23 Rx rabeprazole 20 mg tablet,delayed 20 mg PO DAILY stomach #90 tabs 07/08/24 Rx release (AcipHex) nifedipine 60 mg tablet,extended 60 mg PO DAILY BP #90 tabs 4 07/08/24 Rx release 24 hr pen needle, diabetic 31 gauge x #100 ea 04/15/24 Unknown Rx 09/16" (Unifine Pentips Plus) insulin glargine 100 unit/mL (3 25 unit subcut BID 06/06/24 History mL) subcutaneous pen, sensor insulin lispro 100 unit/mL 10 - 15 unit subcut TIDCM 06/06/24 07/08/24 History subcutaneous pen (Humalog KwikPen (U-100) Insulin) lidocaine 5 % topical patch 1 patch topical DAILY PRN pain 07/26 Unknown History quetiapine 200 mg tablet 400 mg PO BID 06/06/24 07/07/24 Hi story aspirin 81 mg tablet,delayed 81 mg PO DAILY 07/08/24 07/08/24 H istory release (Adult Aspirin Regimen) dextroamphetamine-amphe tamine 30 1 tab PO BID PRN ADHD 07/08/24 Unk nown History mg tablet fluoxetine 20 mg capsule 20 mg PO QHS 07/08/24 07/07/24 His tory oxycodone 5 mg tablet 5 - 10 mg (1 - 2 x 5 mg) PO Q8H Unknown Rx PRN pain 3 days #15 tabs Allergy/AdvReac Type Severity Reaction Status Date / Time Quinolones Allergy Unknown PT UNSURE Verified 07/08/24 09:40 OF REACTION ciprofloxacin (From Cipro) Allergy Rash Verified 07/08/24 09:40 ciprofloxacin HCl (From Allergy Rash Verifi (more content not included)... Normal [facility] Eosinophil percentageOrdered By: Blanca Julio on 07-08-2024 Eosinophils/100 WBC (Bld) 2.1 % 0-5 [facility] Epithelial cells.squamous LM Ql (Urine sed)Ordered By: Blanca Julio on 07-08-2024 Epithelial cells.squamous LM.HPF (Urine sed) [#/Area] 0 /[HPF] 0-5 [facility] Erythrocyte distribution wid th ratioOrdered By: Blanca Julio on 07-08-2024 Erythrocyte distribution width (RBC) [Ratio] 13.1 % 11.6-14.6 [facility] Erythrocyte distribution wid th standard deviationOrdered By: Blanca Julio on 07-08-2024 Erythrocyte distribution width (RBC) [Entitic vol] 40.8 fL 35.1-43.9 [facility] Fine Granular Casts LM.LPF ( Urine sed) [#/Area]Ordered By: Blanca Julio on 07-08-2024 Urine Fine Granular Casts 0-5 SEEN /lpf 0-5 [facility] GFR/1.73 sq M.predicted oliver g non-blacks MDRD (S/P/Bld) [Vol rate/Area]Ordered By: Blanca Julio on 07-08-2024 Estimated GFR (MDRD) Non-Af Amer 67 >60 [facility] Comment on above: mL/min/1.73m2 CKD-EP I Creatinine Equation (2020) Glucose Ql (U)Ordered By: Adam Julio on 07-08-2024 Urine Glucose (UA) Normal mg/dl Normal [facility] Hematocrit Auto (Bld) [Volum e fraction]Ordered By: Blanca Julio on 07-08-2024 Hematocrit (Bld) [Volume fraction] 37.1 % Low 40-54 [facility] Hemoglobin measurementOrdere d By: Blanca Julio on 07-08-2024 Hemoglobin (Bld) [Mass/Vol] 12.6 g/dL Low 13.0-16.5 [facility] Hyaline casts LM.LPF (Urine sed) [#/Area]Ordered By: Blanca Julio on 07-08-2024 Hyaline casts LM Ql (Urine sed) 5-10 SEEN /lpf 0-5 [facility] Immature granulocytes/100 WB C Auto (Bld)Ordered By: Blanca Julio on 07-08-2024 Immature granulocytes/100 WBC (Bld) 0.800 % 0.0-0.9 [facility] Comment on above: IG% - Immature Granu locytes (promyelocytes, myelocytes and metamyelocytes) > 1% indicates that a LEFT SHIFT is Present. Ketones Test strip Ql (U)Ord ered By: Blanca Julio on 07-08-2024 Ketones Ql (U) Negative Negative [facility] Lumbar Spine 2 or 3 Viewson 07-08-2024 Lumbar Spine 2 or 3 Views [facility] Imaging Services [address] [place] [address] Lumbar Spine 2 or 3 Views MR#: [id number] Acct: [id number] Name: LEIDY DC Rep #: [id number] : 1970 M 53 From: Daquan Dougherty MD PCP: Dr. Dhaval Braden MD Status: REG ER Study: Lumbar Spine 2 or 3 Views Date of Exam: Exam# [id number] Ordering Dr: Blanca Julio DO PROCEDURE: LUMBAR SPINE 2 OR 3 VIEWS REASON FOR EXAM: Injury. Pain. TECHNIQUE: 2 view(s) of the lumbar spine. COMPARISON: MRI lumbar spine dated 04/13/2021. FINDINGS: Vertebra: Vertebral bodies normal in height. Mild spondylosis at L1 through L3. Alignment: No scoliosis. No spondylolisthesis. Discs: Narrowing of the L1-L2 and L2-L3 interspaces. Foramens: Unremarkable. Facets: Suspected facet arthropathy at L5-S1. Soft tissues: Prevertebral soft tissues are normal. RAD/Lumbar Spine 2 or 3 Views IMPRESSION: Mild spondylosis. Degenerative disc disease at L1 through L3. Reading Location: [place] [address] CC: Dr. Blanca Julio DO; Dr. Dhaval Braden MD Book Packer: Signed Normal [facility] Lymphocytes Auto (Unsp spec) [#/Vol]Ordered By: Blanca Julio on 07-08-2024 Lymphocytes (Bld) [#/Vol] 1.01 10*3/uL 0.83-4.51 [facility] Lymphocytes/100 WBC Auto (Un sp spec)Ordered By: Blanca Julio on 07-08-2024 Lymphocytes/100 WBC (Bld) 11.9 % Low 19-41 [facility] MCV (mean corpuscular volume ) determinationOrdered By: Blanca Julio on 07-08-2024 MCV (RBC) [Entitic vol] 85.7 fL 80-94 [facility] Mean corpuscular hemoglobin (MCH) determinationOrdered By: Blanca Julio on 07-08-2024 MCH (RBC) [Entitic mass] 29.1 pg 27.0-32.0 [facility] Mean corpuscular hemoglobin concentration (MCHC) determinationOrdered By: Blanca Julio on 07-08-2024 MCHC (RBC) [Mass/Vol] 34.0 g/dL 32-36 [facility] Mean platelet volume determi nationOrdered By: Blanca Julio on 07-08-2024 Platelet mean volume (Bld) [Entitic vol] 9.3 fL 6.2-12.0 [facility] Microscopic analysis of urin e for red blood cells (RBC)Ordered By: Blanca Julio on 07-08-2024 Urine RBC 0-5 SEEN /hpf 0-5 [facility] Monocyte percentageOrdered B y: Blanca Julio on 07-08-2024 Monocytes/100 WBC (Bld) 8.9 % 0-10 [facility] Mucus LM Ql (Urine sed)Order ed By: Blanca Julio on 07-08-2024 Mucus Ql (Urine sed) 0 SEEN /hpf [facility] Neutrophil percentageOrdered By: Blanca Julio on 07-08-2024 Neutrophils/100 WBC (Bld) 75.7 % High 47-70 [facility] Nitrite Test strip Ql (U)Ord ered By: Blanca Julio on 07-08-2024 Nitrite Ql (U) Negative Negative [facility] Nucleated red blood cell per centageOrdered By: Blanca Julio on 07-08-2024 Nucleated RBC/100 WBC (Bld) [Ratio] 0 % 0-5 [facility] Platelet countOrdered By: Adam Julio on 07-08-2024 Platelets (Bld) [#/Vol] 226 10*3/uL 150-450 [facility] Potassium (Unsp spec) [Mass/ Vol]Ordered By: Blanca Julio on 07-08-2024 Potassium [Moles/Vol] 3.7 mmol/L 3.3-5.1 [facility] Protein Test strip Ql (U)Ord ered By: Blanca Julio on 07-08-2024 Protein Ql (U) 100 mg/dl High Negative [facility] RBC Auto (Bld) [#/Vol]Ordere d By: Blanca Julio on 07-08-2024 RBC (Bld) [#/Vol] 4.33 10*6/uL Low 4.6-6.2 [facility] Serum creatinine measurement (mass/volume)Ordered By: Blanca Julio on 07-08-2024 Creatinine [Mass/Vol] 1.27 mg/dL High 0.70-1.20 [facility] Serum glucose measurement (m ass/volume)Ordered By: Blanca Julio on 07-08-2024 Glucose [Mass/Vol] 128 mg/dL High 70-99 [facility] Serum or plasma calcium jorje urement (mass/volume)Ordered By: Blanca Julio on 07-08-2024 Calcium [Mass/Vol] 9.1 mg/dL 7.6-11.0 [facility] Serum or plasma urea nitroge n measurement (mass/volume)Ordered By: Blanca Julio on 07-08-2024 Urea nitrogen [Mass/Vol] 17 mg/dL 4-19 [facility] Sodium levelOrdered By: Mario Julio on 07-08-2024 Sodium [Moles/Vol] 138 mmol/L 133-145 [facility] Tibia Fibula 2 Viewson 07-08 Tibia Fibula 2 Views [facility] Imaging Services [address] [place] [id number] Tibia Fibula 2 Views MR#: [id number] Acct: [id number] Name: LEIDY DC Rep #: [id number] : 1970 M 53 From: Daquan Dougherty MD PCP: Dr. Dhaval Braden MD Status: REG ER Study: Tibia Fibula 2 Views Date of Exam: 07/08/24 Exam# [id number] Ordering Dr: Blanca Julio DO PROCEDURE: TIBIA AND FIBULA 2 VIEWS REASON FOR EXAM: Injury. Pain. TECHNIQUE: 2 view(s) of left tibia and fibula COMPARISON: None. FINDINGS: No fracture. No suspicious bone lesion. Normal alignment at the knee and ankle. Ankle soft tissue swelling. RAD/Tibia Fibula 2 Views IMPRESSION: No acute osseous abnormalities. Soft tissue swelling at the ankle. Reading Location: [place] [address] CC: Dr. Blanca Julio DO; Dr. Dhaval Braden MD Book Packer: Signed Normal [facility] Urinalysis, Completeon 07-08 CAST,FINE GRAN 0-5 SEEN Normal 0-5 [facility] Comment on above: Order Comment: COLLE CTOR TO SPECIFY Performed By: #### L 400.0001 #### [facility] [address] [place], [address] CAST,HYALINE 5-10 SEEN Normal 0-5 [facility] Comment on above: Order Comment: COLLE CTOR TO SPECIFY Performed By: #### L 400.0001 #### [facility] [address] [place], [address] CAST,WBC 0-5 SEEN Normal None Seen [facility] Comment on above: Order Comment: COLLE CTOR TO SPECIFY Performed By: #### L 400.0001 #### [facility] [place], [address] RBC 0-5 SEEN Normal 0-5 [facility] Comment on above: Order Comment: COLLE CTOR TO SPECIFY Performed By: #### L 400.0001 #### [facility] [place], [address] WBC 0-5 SEEN Normal 0-5 [facility] Comment on above: Order Comment: COLLE CTOR TO SPECIFY Performed By: #### L 400.0001 #### [facility] [place], [address] BACTERIA 0 SEEN Normal None Seen [facility] Comment on above: Order Comment: COLLE CTOR TO SPECIFY Performed By: #### L 400.0001 #### [facility] [address] [place], [address] EPI,SQUAMOUS 0 SEEN Normal 0-5 [facility] Comment on above: Order Comment: COLLE CTOR TO SPECIFY Performed By: #### L 400.0001 #### [facility] [address] [place], [address] Mucus Ql (Urine sed) 0 SEEN Normal [facility] Comment on above: Order Comment: COLLE CTOR TO SPECIFY Performed By: #### L 400.0001 #### [facility] [address] [place], [address] Urine blood detectionOrdered By: Blanca Julio on 07-08-2024 Urine Occult Blood Negative Negative [facility] Urine clarityOrdered By: Jeanna Julio on 07-08-2024 Clarity (U) Clear Clear [facility] Urine color determinationOrd ered By: Blanca Julio on 07-08-2024 Color (U) Yellow Yellow [facility] Urine leukocyte esterase det ection by dipstickOrdered By: Blanca Juilo on 07-08-2024 Leukocyte esterase Test strip Ql (U) Negative Negative [facility] Urine pHOrdered By: Blanca durand on 07-08-2024 pH (U) 6.0 [pH] 5.0 - 8.0 [facility] Urine sediment bacteria coun t by microscopy (number/high power field)Ordered By: Blanca Julio on 07-08-2024 Bacteria LM.HPF (Urine sed) [#/Area] 0 /[HPF] None Seen [facility] Urine specific gravity measu rementOrdered By: Blanca Julio on 07-08-2024 Specific gravity (U) [Rel density] 1.020 1.002-1.030 [facility] Urobilinogen Ql (U)Ordered B y: Blanca Julio on 07-08-2024 Urine Urobilinogen Normal mg/dl [facility] WBC casts LM.LPF (Urine sed) [#/Area]Ordered By: Blanca Julio on 07-08-2024 Urine White Blood Cell Casts 0-5 SEEN /lpf None Seen [facility] White blood cell (WBC) count Ordered By: Blanca Julio on 07-08-2024 WBC (Bld) [#/Vol] 8.5 10*3/uL 4.4-11.0 [facility] White blood cell countOrdere d By: Blanca Julio on 07-08-2024 Urine WBC 0-5 SEEN /hpf 0-5 [facility] Bedside Glucoseon 06-10-2024 [place] GLU 186 mg/dL High 74-106 [facility] Comment on above: Result Comment: VERITO [place] OF PATIENT CARE PER NURSING PROTOCOL Performed By: #### L 9000.0810 #### [facility] Laboratory [address] [place], [address] Gl[facility] at [facility] deOrdered By: Melquiades Alegre on 06-10-2024 Bedside Glucose ([facility] Panel) 186 mg/dL High 74-106 [facility] Comment on above: MANAGEMENT OF PATIEN T CARE PER NURSING PROTOCOL MR/POSTOP.ANEon 06-10-2024 MR/POSTOP.ANE [facility] Medical Records Department [address] [place] [address] Anesthesia Postop Eval I 06/10/24 1157 MR#: [id number] Acct: [id number] Name: LEIDY DC Rep #: [id number] : 1970 53 From: Roc Quiroga CRNA PCP: Dr. Dhaval Braden MD Status:REG SD Y Race: C Location: [place] [address] Anesthesia: Postop Eval I Current Vital Signs Temperature: 97.7 F Pulse Rate: 61 Blood Pressure: 151/76 Respiratory Rate: 18 Pulse Ox: 96 Oxygen Delivery Method: Nasal Cannula Oxygen Flow Rate (L/min): 4 Assessment Airway patent: Yes Spontaneous unlabored respirations: Yes Mental status: Awake and Calm nausea: No Vomiting: No Anesthesia Complication: No Fluid Hydration Crystalloid volume administer (ml): 700 Total IV fluid infused: 700 Progress Note Anesthesia document: Postop Eval 1 completed: Yes 06/10/24 1158 Date Roc Quiroga PROFESSOR COMPUTER SCIENCE Cosigner Signature: Date CC: Signed Normal [facility] MR/[id number] 06-10-2024 [facility] Medical Records Department [address] [place] [address] Anesthesia Postop Eval II 06/10/24 1325 MR#: [id number] Acct: [id number] Name: LEIDY DC Rep #: [id number] : 1970 53 From: Mumtaz Sarah MD PCP: Dr. Dhaval Braden MD Status:REG SDC Y Race: C Location: [place] [address] Anesthesia Postop Eval I Sum Postop Eval Completion status Anesthesia document: Postop Eval 1 completed: Yes Anesthesia Postop Eval I Summary Anesthesia Postop Eval I Summary: Anesthesia Postop Eval I: Assessment Summary Airway patent Yes 06/10/24 11:58 PROFESSOR COMPUTER SCIENCE.JRIV Spontaneous unlabored Yes 06/10/24 11:58 PROFESSOR COMPUTER SCIENCE.JRIV respirations Mental status Awake,Calm 06/10/24 11:58 PROFESSOR COMPUTER SCIENCE.JRIV nausea No 06/10/24 11:58 PROFESSOR COMPUTER SCIENCE.JRIV Vomiting No 06/10/24 11:58 PROFESSOR COMPUTER SCIENCE.JRIV Anesthesia Postop Eval I: Fluid Summary Crystalloid volume administer 700 06/10/24 11:58 PROFESSOR COMPUTER SCIENCE.JRIV (ml) Colloids volume administered ( ml) Blood Product volume administered (ml) Total IV fluid infused 700 06/10/24 11:58 PROFESSOR COMPUTER SCIENCE.JRIV Anesthesia Postop Eval I: Summary Notes Anesthesia Complication No 06/10/24 11:58 PROFESSOR COMPUTER SCIENCE.JRIV Anesthesia Complication Comment: Post-operative progress note Anesthesia: Postop Eval II Evaluation Mental status: Awake Pain Level: 1 nausea: No Vomiting: No 06/10/24 1326 Date Mumtaz Sarah MD Cosigner Signature: Date CC: Signed Normal [facility] Spine 1 View Any Levelon Spine 1 View Any Level [facility] Imaging Services [address] [place], [place] [address] Spine 1 View Any Level MR#: [id number] Acct: [id number] Name: LEIDY DC Rep #: [id number] : 1970 M 53 From: Ian Miller i DO PCP: Dr. Dhaval Braden MD Status: [facility] Study: Spine 1 View Any Level Date of Exam: 06/10/24 Exam# [id number] Ordering Dr: Melquiades Alegre MD PROCEDURE: Fluoroscopy use. REASON FOR EXAM: Pain pump placement. TECHNIQUE: A single intraoperative fluoroscopic view of the lower thoracic/upper lumbar spine was obtained. COMPARISON: None. FINDINGS: A single lateral intraoperative fluoroscopic view of the lower thoracic/lumbar spine was obtained. 12.2 seconds of fluoroscopic time was utilized. A linear wire type structure projects posterior to the lower aspect of the thoracic spine, near T12. RAD/Spine 1 View Any Level IMPRESSION: Documentation of fluoroscopy used during pain pump placement. Please see the operative note for details. Reading Location: [facility] CC: Dr. Melquiades Alegre MD; Dr. Dhaval Braden MD Book Packer: Signed Normal [facility] Echo Complete W/ Contraston 06-07-2024 Echo Complete W/ Contrast [facility] Cardiovascular Services [address] [place] [address] Echo Complete W/ Contrast 06/07/24 1512 MR#: [id number] Acct: [id number] Name: LEIDY DC Rep #: [id number] : 1970 53 From: Eduard Rea MD Attending Dr: SHELIA Campbell [facility]: Nicolette Hernández Date: 08/26 Location: [facility] Sex: M C Admitted: Reason For Study: Preop Procedure This was a 2D Doppler, Color Flow transthoracic echocardiogram. Contrast injection was performed. Exam performed in department. Left Ventricle Mild concentric left ventricular hypertrophy. Mildly dilated left ventricle. Left ventricular systolic function is normal. The left ventricular ejection fraction is 60 %. Stage 1 diastolic dysfunction. Infero-Basal: Severely Hypokinetic. Right Ventricle Normal RV size. Normal systolic function. Atria Normal left atrium. Normal right atrium. Mitral Valve Normal mitral valve. Mild (1+) eccentric mitral valve insufficiency. Tricuspid Valve Normal tricuspid valve. Mild (1+) tricuspid valve insufficiency. Pulmonary artery systolic pressure is 33 mmHg. Aortic Valve Bioprosthetic aortic valve. Pulmonic Valve Normal pulmonic valve. Great Vessels Mild to moderately dilated aortic root. Status post aortic arch reconstruction with elephant arch. Pericardium/Pleural No pericardial effusion. Medication Diluted definity 2ml given slow IV push to enhance endocardial definition. MMode/2D Measurements Calculations LVIDd: 6.0 cm IVSd: 1.2 cm LVOT diam: 2.8 cm LVIDs: 3.9 cm LVPWd: 1.2 cm RVDd: 2.7 cm FS: 34.9 % LVOT area: 6.4 cm2 Ao root diam: 4.1 cm asc Aorta Diam: 4.1 cm LAV(MOD-bp): 53.2 ml LAV(MOD-bp) Indexed: 20.5 ml/m2 LAV(MOD-sp2): 58.7 ml LAV(MOD-sp4): 44.3 ml SV(MOD-sp4): 77.5 ml SV(sp4-el): 78.3 ml LVAd ap4: 39.9 cm2 LVLd ap4: 9.5 cm SI(MOD-sp4): 29.9 ml/m2 EDV(MOD-sp4): 139.4 ml EDV(sp4-el): 141.9 ml LVAs ap4: 24.3 cm2 LVLs ap4: 7.9 cm ESV(MOD-sp4): 61.9 ml ESV(sp4-el): 63.6 ml EF(MOD-sp4): 55.6 % EF(sp4-el): 55.2 % LA A4 area: 16.8 cm2 LA dimension(2D): 4.9 cm RA A4 area: 17.4 cm2 Time Measurements MV dec time: 0.25 sec Doppler Measurements Calculations MV E max nidia: 51.1 cm/sec Lat Peak E' Nidia: 10.5 cm/sec Med Peak E' Nidia: 7.3 cm/sec MV A max nidia: 63.6 cm/sec E/E' lat: 4.9 E/E' med: 7.0 MV E/A: 0.80 MV dec slope: 206.9 cm/sec2 Ao V2 max: 156.0 cm/sec LV V1 max: 116.2 cm/sec Ao max P.7 mmHg LV V1 max P.4 mmHg Ao V2 mean: 105.9 cm/sec LV V1 mean P.2 mmHg Ao mean P.0 mmHg LV V1 mean: 85.4 cm/sec Ao V2 VTI: 28.2 cm LV V1 VTI: 23.7 cm AV (velocity ratio): 0.84 BECKA(I,D): 5.4 cm2 BECKA(V,D): 4.8 cm2 SV(LVOT): 151.3 ml PA V2 max: 110.2 cm/sec PI end-d nidia: 103.2 cm/sec TR max nidia: 273.9 cm/sec TR max P.0 mmHg ECHO/Echo Complete W/ Contrast Interpretation Summary Left ventricular systolic function is normal. The left ventricular ejection fraction is 60 %. Mild concentric left ventricular hypertrophy. Mildly dilated left ventricle. Stage 1 diastolic dysfunction. Contrast injection was performed. Ordering Physician: Nicolette Hernández Referring Physician: Dhaval Braden Performed By: Felisa Jacobson, SANTANA, RVT 06/07/241724 Date Eduard Rea MD CC: Dr. Dhaval Braden MD; SHELIA Campbell Date Dictated: 06/07/241511 Date Transcribed: 06/07/241724 Book Packer: Taty [facility] MR/Stas 06-06-2024 MR/PATAMAIRANI [facility] Medical Records Department [address] [place] [address] PAT - Anesthesia 06/06/24 1502 MR#: [id number] Acct: [id number] Name: LEIDY DC Rep #: [id number] : 1970 53 From: Mumtaz Sarah MD PCP: Dr. Dhaval Braden MD Status:PRE [facility] Y Race: C Location: [facility] Pre-Assessment Diagnosis/Proposed Procedure Planned Operative Procedure(s): INSERTION PAIN PUMP IMPLANTABLE Anesthesia History Anesthesia History - debt counselor: Anesthesia History - debt counselor Hx Hospitalization Yes: 2023 FOR NEW DX OF 06/06/24 12:59 DIABETES Any Problems With Anesthesia No 06/06/24 12:59 Cholinesterase deficiency No 06/06/24 12:59 You/Your Family Experience No 06/06/24 12:59 fever (hyperthermia) with Relationship Recent Exposure to Contagious No 07/25/21 14:38 Disease Does patient have nerve No 06/06/24 12:59 stimulator Patient instructed to have device shut off --Does patient have Pacemaker or ICD? When Was Last Pacemaker Check QUESTION #4 FULL TEXT: You/Your Family Experience fever (hyperthermia) with Anesthesia Last Oral Intake Last Oral intake: Last Oral Intake NPO since Meds taken in AM with sips of water? 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 - debt counselor: PONV - debt counselor Female No 06/06/24 12:59 HX of Motion Sickness No 06/06/24 12:59 HX of N/V After Surgery No 06/06/24 12:59 Non-Smoker Yes 06/06/24 12:59 Duration of Surgery greater Yes 06/06/24 12:59 than 60 minutes Number of Risk Factors 2 06/06/24 12:59 PONV Score Moderate Risk 06/06/24 12:59 Height Weight Height Weight: Anesthesia: Height Weight Height 6 ft 4 in 09/17/23 19:33 Respiratory Assessment Respiratory Assessment - debt counselor: Respiratory Tract Infection Hx - debt counselor Hx Respiratory Tract Infection No 06/06/24 12:59 STOP Sleep Apnea STOP Sleep Apnea - debt counselor: STOP Sleep Apnea - debt counselor Hx Hypertension Yes: CONTROLLED WITH MED 06/06/24 12:59 Hx Sleep Apnea Yes 06/06/24 12:59 CPAP No 06/06/24 12:59 BIPAP Yes 06/06/24 12:59 Do you snore loudly (louder than talking or can be heard Do you often feel tired/ fatigued/ sleepy during daytime? Has anyone observed you stop breathing during sleep? STOP Results Positive 06/06/24 12:59 QUESTION #5 FULL TEXT : Do you snore loudly (louder than talking or can be heard through closed doors)? 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 Specify any problems Hx of Preganancy in last 3 N/A 06/06/24 12:59 Months Nurse Filling Out Transfusion DSCHRIBER 06/06/24 12:59 Questions: Date: 06/06/24 06/06/24 12:59 Time: 13:02 06/06/24 12:59 Patient unable to answer at this time (ie. confused, unrespo /Reproduction History /Reproductive History - debt counselor: /Reproductive Hx- debt counselor Hx Now No 06/06/24 12:59 Gestational Age (in weeks): EDC: Hx Hx Para Hx Section SAB No 06/06/24 12:59 PFSH Medical History (Updated 06/06/24 @ 13:14 by Sandy Luevano) Wears glasses Broken teeth Thyroid disease Insulin dependent diabetes mellitus Dietary restriction Leg cramps History of pain when walking History of edema History of echocardiogram Cardiology follow-up encounter Pain Bipolar disorder Anxiety Hypothyroidism Non-smoker BiPAP (biphasic positive airway pressure) dependence Restrictive lung disease Anemia Depression History of aortic dissection Marfan syndrome CHF (congestive heart failure) Infection of external auditory canal Abnormal stress test Uncontrolled hypertension Acute maxillary sinusitis, unspecified Nonobstructive atherosclerosis of coronary artery Hyperkalemia GERD (gastroesophageal reflux disease) Dissection of vertebral artery Hyperlipidemia Dissecting aneurysm of ascending aorta Essential (p (more content not included)... Normal [facility] Miscellaneous Lab Procedureo n 12-25-2023 MISC LAB TEST Normal [facility] Comment on above: Order Comment: [id number] URINE TOX Result Comment: [id number] 6+OXYCODONE-BUND (ng/mL) DRUG RESULT SCREEN CUTOFF ____ Amphetamines,Urine Negative ng/mL 1000 Amphetamine test includes Amphetamine and Methamphetamine. Barbiturates Negative ng/mL 200 Benzodiazepines Negative ng/mL 200 Cannabinoid Negative ng/mL 20 Cocaine (Metab) Negative ng/mL 300 Opiates Negative ng/mL 300 Opiates test includes Codeine, Morphine, Hydromorphone, Hydrocodone. Oxycodone/Oxymorphone,Urine POSITIVE ng/mL 300 Test includes Oxycodone and Oxymorphone. Oxycodone POSITIVE Oxycodone Conf, 641 ng/mL 300 MS, UR Oxymorphone Negative 300 TESTING PERFORMED AT [facility]. ORIGINAL REPORT ON FILE IN LAB CONTAINS ADDITIONAL TEST SITE INFORMATION. Performed By: #### L 801.1541, L5.4999 #### [facility] Laboratory [address] [place], [place], [address] Urine Drug Screen (VISTA)on 12-22-2023 AMPHETAMINES Negative Normal <1000 ng/mL [facility] Comment on above: Order Comment: MEDTO X Performed By: #### L 801.1541, L505.5000 #### [facility] Laboratory [address] [place], [place], [address] BARBITIURATES Negative Normal < 200 ng/mL [facility] Comment on above: Order Comment: MEDTO X Performed By: #### L 801.1541, L505.5000 #### [facility] Laboratory [address] [place], [address] BENZODIAZIPINE Negative Normal < 200 ng/mL [facility] Comment on above: Order Comment: MEDTO X Performed By: #### L 801.1541, L505.5000 #### [facility] Laboratory [address] [place], [address] COCAINE Negative Normal < 300 ng/mL [facility] Comment on above: Order Comment: MEDTO X Performed By: #### L 801.1541, L505.5000 #### [facility] Laboratory [address] [place], [address] ECSTACY Negative Normal < 500 ng/mL [facility] Comment on above: Order Comment: MEDTO X Performed By: #### L 801.1541, L505.5000 #### [facility] Laboratory [address] [place], [address] METHADONE Negative Normal < 300 ng/mL [facility] Comment on above: Order Comment: MEDTO X Performed By: #### L 801.1541, L505.5000 #### [facility] Laboratory [address] [place], [address] OPIATES Negative Normal < 300 ng/mL [facility] Comment on above: Order Comment: MEDTO X Performed By: #### L 801.1541, L505.5000 #### [facility] Laboratory [address] [place], [address] PCP Negative Normal < 25 ng/mL [facility] Comment on above: Order Comment: MEDTO X Performed By: #### L 801.1541, L505.5000 #### [facility] Laboratory [address] [place], [address] THC Negative Normal < 50 ng/mL [facility] Comment on above: Order Comment: MEDTO X Performed By: #### L 801.1541, L505.5000 #### [facility] Laboratory [address] [place], [address] VISTA UDS PH 7 Normal [facility] Comment on above: Order Comment: MEDTO X Performed By: #### L 801.1541, L505.5000 #### [facility] Laboratory [address] [place], [address] 12 Lead EKGon 09-17-2023 12 Lead EKG [facility] Cardiovascular Services [address] [place] [address] 12 Lead EKG 09/17/231944 MR#: [id number] Acct: [id number] Name: LEIDY DC Rep #: [id number] : 1970 52 From: Anton Birmingham MD Attending Dr: Status: DEP ER Ordering Dr: Geovani Fernandez MD Date: 09/17/23 Location: ED Sex: M C Admitted: Test Reason : DYSRHYTHMIA Blood Pressure : / mmHG Vent. Rate : 070 BPM Atrial Rate : 070 BPM P-R Int : 236 ms QRS Dur : 128 ms QT Int : 440 ms P-R-T Axes : 001 -02 067 degrees QTc Int : 475 ms Sinus rhythm with 1st degree A-V block Left ventricular hypertrophy with QRS widening and repolarization abnormality ( Birmingham product ) Abnormal ECG Confirmed by Anton Birmingham ([id number]), editor managing newspaper KELTON JAIN ([id number]) on 09/21/2023 10:22:11 AM Referred By: Confirmed By:Anton Birmingham 09/21/23 1022 Date Anton Birmingham MD CC: Dr. Geovani Fernandez MD; Dr. Dhaval Braden MD Signed Normal [facility] BNP,B-Type NATRIURETIC PEPTI Anup 09-17-2023 Natriuretic peptide B (Bld) [Mass/Vol] 76.0 pg/mL Normal 0-100 [facility] Comment on above: Performed By: #### L 503.6620 #### [facility] Laboratory [address] [place], [address] Basic Metabolic Profile (BMP )on 09-17-2023 BUN/CRE 17.0 RATIO Normal 10-20 [facility] Comment on above: Order Comment: 'TROP ' Serial specimen #1, #2 or #3: 1 Performed By: #### L 9000.0810 #### [facility] Laboratory [address] [place], [address] CA,Total 9.0 mg/dL Normal 8.5-10.1 [facility] Comment on above: Order Comment: 'TROP ' Serial specimen #1, #2 or #3: 1 Performed By: #### L 9000.0810 #### [facility] Laboratory [address] [place], [address] Chloride [Moles/Vol] 103 mmol/L Normal 98-107 [facility] Comment on above: Order Comment: 'TROP ' Serial specimen #1, #2 or #3: 1 Performed By: #### L 9000.0810 #### [facility] Laboratory [address] [place], [address] CO2 [Moles/Vol] 28.0 mmol/L Normal 21.0-32.0 [facility] Comment on above: Order Comment: 'TROP ' Serial specimen #1, #2 or #3: 1 Performed By: #### L 9000.0810 #### [facility] Laboratory [address] [place], [address] Creatinine [Mass/Vol] 1.12 mg/dL Normal 0.70-1.30 [facility] Comment on above: Order Comment: 'TROP ' Serial specimen #1, #2 or #3: 1 Result Comment: The validity of the calculated GFR GFRAA in patients over 70 years has not been determined. Clinical correlation is essential. Performed By: #### L 9000.0810 #### [facility] [address] [place], [address] ECRCL 107.59 ml/min Normal [facility] Comment on above: Order Comment: 'TROP ' Serial specimen #1, #2 or #3: 1 Performed By: #### L 9000.0810 #### [facility] [address] [place], [address] EST GFR - AA 88 mL/min Normal >60 [facility] Comment on above: Order Comment: 'TROP ' Serial specimen #1, #2 or #3: 1 Result Comment: Afri can Citizen Of [place] GFR Calc Performed By: #### L 9000.0810 #### [facility] Laboratory [address] [place], [address] GAP 5 Normal 5-15 [facility] Comment on above: Order Comment: 'TROP ' Serial specimen #1, #2 or #3: 1 Performed By: #### L 9000.0810 #### [facility] [address] [place], [address] GFR/1.73 sq M.predicted among non-blacks MDRD (S/P/Bld) [Vol rate/Area] 72 mL/min/{1.73_m2} Normal >60 [facility] Comment on above: Order Comment: 'TROP ' Serial specimen #1, #2 or #3: 1 Result Comment: Non- GFR Calc Performed By: #### L 9000.0810 #### [facility] [address] [place], [address] Glucose [Mass/Vol] 164 mg/dL High 74-106 [facility] Comment on above: Order Comment: 'TROP ' Serial specimen #1, #2 or #3: 1 Result Comment: Fast ing Glucose result greater than or equal to 126 mg/dL suggests DIABETES MELLITUS per A.D.A. criteria. Performed By: #### L 9000.0810 #### [facility] [address] [place], [address] Potassium [Moles/Vol] 3.9 mmol/L Normal 3.5-5.1 [facility] Comment on above: Order Comment: 'TROP ' Serial specimen #1, #2 or #3: 1 Result Comment: Mode rate Hemolysis, Result may be falsely increased. Performed By: #### L 9000.0810 #### [facility] [address] [place], [address] Sodium [Moles/Vol] 136 mmol/L Normal 136-145 [facility] Comment on above: Order Comment: 'TROP ' Serial specimen #1, #2 or #3: 1 Performed By: #### L 9000.0810 #### [facility] [address] [place], [address] Urea nitrogen [Mass/Vol] 19 mg/dL High 7-18 [facility] Comment on above: Order Comment: 'TROP ' Serial specimen #1, #2 or #3: 1 Performed By: #### L 9000.0810 #### [facility] [address] [place], [address] CBC W/Diff, Automatedon 05-1 -2023 Absolute Lymph 1.35 X10 3/uL Normal 0.83-4.51 [facility] Comment on above: Performed By: #### L 9000.0810 #### [facility] [address] [place], [address] Absolute Neut 2.3 X10 3/uL Normal 2.0-7.7 [facility] Comment on above: Performed By: #### L 9000.0810 #### [facility] [address] [place], [address] Basophils/100 WBC (Bld) 0.7 % Normal 0-1 [facility] Comment on above: Performed By: #### L 9000.0810 #### [facility] [address] [place], [address] Eosinophils/100 WBC (Bld) 4.0 % Normal 0-5 [facility] Comment on above: Performed By: #### L 9000.0810 #### [facility] [address] [place], [address] Erythrocyte distribution width (RBC) [Ratio] 13.4 % Normal 11.6-14.6 [facility] Comment on above: Performed By: #### L 9000.0810 #### [facility] [address] [place], [address] Hematocrit (Bld) [Volume fraction] 41.4 % Normal 40-54 [facility] Comment on above: Performed By: #### L 9000.0810 #### [facility] [address] [place], [address] Hemoglobin (Bld) [Mass/Vol] 13.2 g/dL Normal 13.0-16.5 [facility] Comment on above: Performed By: #### L 9000.0810 #### [facility] [address] [place], [address] IG% 1.400 High 0.0-0.9 [facility] Comment on above: Result Comment: IG% - Immature Granulocytes (promyelocytes, myelocytes and metamyelocytes) > 1% indicates that a LEFT SHIFT is Present. Performed By: #### L 9000.0810 #### [facility] [address] [place], [address] Lymphocytes/100 WBC (Bld) 31.6 % Normal 19-41 [facility] Comment on above: Performed By: #### L 9000.0810 #### [facility] [address] [place], [address] MCH (RBC) [Entitic mass] 28.0 pg Normal 27.0-32.0 [facility] Comment on above: Performed By: #### L 9000.0810 #### [facility] [address] [place], [address] MCHC (RBC) [Mass/Vol] 31.9 g/dL Low 32-36 [facility] Comment on above: Performed By: #### L 900.0810 #### [facility] [address] [place], [address] MCV (RBC) [Entitic vol] 87.7 fL Normal 80-94 [facility] Comment on above: Performed By: #### L 9000.0810 #### [facility] [address] [place], [address] Monocytes/100 WBC (Bld) 8.9 % Normal 0-10 [facility] Comment on above: Performed By: #### L 900.0810 #### [facility] [address] [place], [address] Neutrophils/100 WBC (Bld) 53.4 % Normal 47-70 [facility] Comment on above: Performed By: #### L 900.0810 #### [facility] [address] [place], [address] Nucleated RBC (Bld) [#/Vol] 0 10*3/uL Normal 0-5 [facility] Comment on above: Performed By: #### L 9000.0810 #### [facility] [address] [place], [address] Platelet mean volume (Bld) [Entitic vol] 9.6 fL Normal 6.2-12.0 [facility] Comment on above: Performed By: #### L 9000.0810 #### [facility] [address] [place], [address] Platelets (Bld) [#/Vol] 216 10*3/uL Normal 150-450 [facility] Comment on above: Performed By: #### L 9000.0810 #### [facility] [address] [place], [address] RBC (Bld) [#/Vol] 4.72 10*6/uL Normal 4.6-6.2 [facility] Comment on above: Performed By: #### L 9000.0810 #### [facility] [address] [place], [address] RDW SD 43.3 fl Normal 35.1-43.9 [facility] Comment on above: Performed By: #### L 9000.0810 #### [facility] [address] [place], [address] WBC (Bld) [#/Vol] 4.3 10*3/uL Low 4.4-11.0 [facility] Comment on above: Performed By: #### L 9000.0810 #### [facility] [address] [place], [address] Chest 1 Viewon 09-17-2023 Chest 1 View [facility] Imaging Services [address] [place] [address] Chest 1 View MR#: [id number] Acct: [id number] Name: LEIDY DC Rep #: [id number] : 1970 M 52 From: Ion Low PCP: Dr. Dhaval Braden MD Status: [facility] ER Study: Chest 1 View Date of Exam: 09/17/23 Exam# [id number] Ordering Dr: Geovani Fernandez MD ADDENDUM by Dr. Ion Maloney MD on 09/17/23 at 2134 ==== ADDENDUM ==== [id number] Sclerotic lesion anterior aspect of the sixth rib was noted on the CT dated October 13, 2022. Follow-up CT is recommended to assess stability. Electronically Signed: Ion Maloney MD at 21:34 EDT , 09/17/232133 Date cc: Dr. Geovani Fernandez MD; Dr. Dhaval Braden MD * Signed ADDENDUM by Dr. Ion Maloney MD on 09/17/23 at 2134 RAD/Chest 1 View IMPRESSION: undefined 09/17/232140 Date cc: Dr. Geovani Fernandez MD; Dr. Dhaval Braden MD * Signed [id number] STUDY: X-RAY CHEST REASON FOR EXAM: Male, 52 years old. Cough, shortness of breath. TECHNIQUE: One view lateral COMPARISON: 7:45 PM today frontal projection FINDINGS: The lungs are clear and expanded. There is no demonstrated pleural abnormality. Normal size heart. Normal mediastinum and patrick. Normal visualized pulmonary arteries. Normal visualized aortic arch and descending thoracic aorta. Normal visualized thoracic spine. Normal visualized ribs, clavicles, and shoulders. There is no demonstrated abnormality of the visualized soft tissue structures of the upper abdomen. RAD/Chest 1 View IMPRESSION: Previously noted sclerotic lesion eighth rib on the right not well demonstrated. Recommend comparison or follow-up. Normal x-ray examination of the chest. Pending Final Proof Editing CC: Dr. Geovani Fernandez MD; Dr. Dhaval Braden MD Book Packer: Signed Normal [facility] Chest 1 View (Portable)on Chest 1 View (Portable) [facility] Imaging Services [address] [place] [address] Chest 1 View (Portable) MR#: [id number] Acct: [id number] Name: LEIDY DC Rep #: [id number] : 1970 M 52 From: Ion Low PCP: Dr. Dhaval Braden MD Status: REG ER Study: Chest 1 View (Portable) Date of Exam: 09/17/23 Exam# [id number] Ordering [place]: [place] [id number] STUDY: X-RAY CHEST REASON FOR EXAM: Male, 52 years old. sob TECHNIQUE: Single frontal view of the chest. COMPARISON: CT and chest x-ray October 13, 2022 FINDINGS: Endovascular aortic stent ascending portions of the arch. Sternotomy wires. Surgical clips right axillary region. Sclerosis eighth rib anteriorly. The lungs are clear and expanded. There is no demonstrated pleural abnormality. Normal size heart. Normal mediastinum and patrick. Normal visualized pulmonary arteries. Normal visualized aortic arch and descending thoracic aorta. Normal visualized thoracic spine. Normal visualized ribs, clavicles, and shoulders. There is no demonstrated abnormality of the visualized soft tissue structures of the upper abdomen. RAD/Chest 1 View (Portable) IMPRESSION: No acute disease. Sclerotic lesion eighth rib anteriorly on the right. Postop changes as above. Recommend follow-up CT chest nonemergent leg. Electronically Signed: Ion Maloney MD at 20:15 EDT , CC: Dr. Geovani Fernandez MD; Dr. Dhaval Braden MD Book Packer: Signed Normal [facility] Chest without Contraston Chest without Contrast [facility] Imaging Services [address] [place], [place] [address] Chest without Contrast MR#: [id number] Acct: [id number] Name: LEIDY DC Rep #: [id number] : 1970 M 52 From: Ion Low PCP: Dr. Dhaval Braden MD Status: REG ER Study: Chest without Contrast Date of Exam: 09/17/23 Exam# [id number] Ordering [place]: [place] [id number] INDICATION: sob, cough, hypoxic, nml CXR EXAMINATION: CT CHEST WITHOUT CONTRAST - CT Chest W/O Contrast Injection TECHNIQUE: Helically acquired images were obtained of the chest. A radiation dose optimization technique was used for this scan. IV Contrast dosage and agent: None. COMPARISON: Chest x-ray from today.. FINDINGS: LUNGS, PLEURA AND LARGE AIRWAYS: No masses, consolidation, or edema. No pleural effusion or thickening. No pneumothorax. THYROID: No thyroid lesions. HEART AND PERICARDIUM: Cardiomegaly. No pericardial effusion. CORONARY ARTERIES: Coronary artery calcification present. VESSELS: Endovascular stent noted within the aortic arch and descending proximal thoracic aorta. Fusiform 4.4 cm aneurysm proximal stent at the arch. This appears unchanged. MEDIASTINUM AND PATRICK: No mediastinal or hilar adenopathy. Esophagus is unremarkable. No hiatal hernia. UPPER ABDOMEN: No acute pathology. BONES: No suspicious lytic or blastic abnormality. CT/Chest without Contrast IMPRESSION: 4.4 cm aneurysm aortic arch unchanged. Endovascular stent unchanged in position. Cardiomegaly and coronary artery disease. Electronically Signed: Ion Maloney MD at 22:43 EDT , CC: Dr. Geovani Fernandez MD; Dr. Dhaval Braden MD Book Packer: Signed Normal [facility] Emergency Department Summary on 09-17-2023 [address] Department [address] [facility] Medical Records Department [address] [place] [address] Emergency Department Summary 09/17/23 MR#: [id number] Acct: [id number] Name: LEIDY DC Rep #: [id number] : 1970 52 From: Geovani Fernandez MD PCP: Dr. Dhaval Braden MD Status:REG ER Location: ED HPI History of Present Illness Chief Complaint: Shortness of Breath Informant: patient Narrative Narrative: 52-year-old male states he feels like he may be getting pneumonia. Cough and shortness of breath worsening over the past 3 days. Also chest discomfort and heaviness, substernal across his chest nonradiating, nonpleuritic. No leg pain or swelling. No syncope or near syncope. No fevers or chills. He is coughing up sputum that looks yellow no blood. Several sick contacts lately, one of them a child that was diagnosed with pneumonia today, the other has had a chronic cough for a month. [facility] Medical History Bipolar disorder Anxiety Hypothyroidism Diabetes Kidney disease Non-smoker BiPAP (biphasic positive airway pressure) dependence Restrictive lung disease Anemia Depression History of aortic dissection Marfan syndrome CHF (congestive heart failure) Infection of external auditory canal NEO (obstructive sleep apnea) Hypoxia Apnea, sleep Abnormal stress test Uncontrolled hypertension Acute maxillary sinusitis, unspecified Nonobstructive atherosclerosis of coronary artery Hyperkalemia GERD (gastroesophageal reflux disease) Hypertensive urgency Dissection of vertebral artery Hyperlipidemia Dissecting aneurysm of ascending aorta Essential (primary) hypertension (05/20/18) Marfans syndrome Home Medications ???Medication ???Instructions ???Recorded ???Last Taken ???Type acetaminophen 500 mg tablet 1,000 mg PO DAILY PRN Pain 05/19/18 05/19/18 History ibuprofen 200 mg tablet 400 - 600 mg PO DAILY PRN Pain 05/19/18 05/19/18 History handicap placcard #1 ea 03/15/21 Unknown Rx albuterol sulfate 90 mcg/actuation 2 puff inhalation Q4H PRN 10/03/21 Unknown Rx aerosol inhaler shortness of breath or wheezing #8.5 grams aspirin 81 mg tablet,delayed 81 mg PO QDAY #90 tabs 09/16/22 Unknown Rx release (Adult Aspirin Regimen) carvedilol 25 mg tablet 50 mg (2 x 25 mg) PO BID #360 tabs 09/16/22 Unknown Rx clonidine HCl 0.1 mg tablet 0.1 mg PO BID blood pressure #180 09/16/22 Unknown Rx tabs fluoxetine 10 mg tablet 20 mg PO DAILY 10/13/22 Unknown History lorazepam 1 mg tablet 1 mg PO DAILY PRN 10/13/22 Unknown History levothyroxine 25 mcg tablet 25 mcg PO DAILY #90 tabs 01/16/23 Unknown Rx rabeprazole 20 mg tablet,delayed 20 mg PO DAILY stomach #90 tabs 02/03/23 Unknown Rx release (AcipHex) nifedipine 60 mg tablet,extended 60 mg PO DAILY BP #30 tabs 02/26/23 Unknown Rx release 24 hr zolpidem 10 mg tablet 10 mg PO QHS PRN sleep #30 tabs 04/30/23 Unknown Rx quetiapine 200 mg tablet 200 mg PO .Four times a day sleep 05/11/23 Unknown Rx #120 tabs oxycodone myristate 9 mg capsule 18 mg PO BID 07/30/23 Unknown History sprinkle extended release 12 hr(DON'T CRUSH) (Xtampza ER) insulin glargine-yfgn 100 unit/mL 20 unit (0.2 mL) subcut BID #15 mL 07/31/23 Unknown Rx (3 mL) subcutaneous pen insulin lispro 100 unit/mL 10 unit (0.1 mL) subcut TIDCM #15 07/31/23 Unknown Rx subcutaneous pen (Humalog KwikPen mL (U-100) Insulin) pen needle, diabetic 31 gauge x #100 ea 09/02/23 Unknown Rx 5/16" (Unifine Pentips Plus) albuterol sulfate 90 mcg/actuation 1 - 2 puff inhalation Q4H PRN PRN 09/17/23 Unknown Rx aerosol inhaler (Ventolin HFA) Wheezing ##1 azithromycin 250 mg tablet 250 mg PO DAILY #6 TABLETS 09/17/23 Unknown Rx Allergy/AdvReac Type Severity Reaction Status Date / Time Quinolones Allergy Unknown PT UNSURE Verified 07/30/23 15:02 OF REACTION ciprofloxacin (From Cipro) Allergy Rash Verified 07/30/23 15:02 ciprofloxacin HCl (From Allergy Rash Verified 07/30/23 15:02 Cipro) sulfamethoxazole (From Allergy Rash Verified 07/30/23 15:02 Bactrim) tramadol Allergy Itching Verified 07/30/23 15:02 trimethoprim (From Bactrim) Allergy Rash Verified 07/30/23 15:02 Family History Son Marfans syndrome Daughter Marfans syndrome Father Hypertension Grandfather Heart disease Myocardial infarction CVA (cerebral vascular accident) Grandmother Heart disease Surgical History History of open reduction and internal fixation (ORIF) procedure (2017) History of left heart catheterization (12/14/20) History of tonsillectomy History of surgical fusion joint History of hand surgery History of mitral valve repair (03/08/11) H/O coronary artery byp (more content not included)... Normal [facility] L501.4020on 09-17-2023 TROPONIN-I HS 12 pg/mL Normal 3.0-78.0 [facility] Comment on above: Order Comment: 'TROP ' Serial specimen #1, #2 or #3: 1 Result Comment: Plea se Note: New Test Units and Gender Specific Reference Ranges. For more information see Policy Stat Procedure [place] High Sensitivity Troponin (TNIH) and attachments. Performed By: #### L 9000.0810 #### [facility] [address] [place], [address] M100.678on 09-17-2023 M100.678 SARS-CoV-2 (COVID 19 ) Negative INFLUENZA A Negative INFLUENZA B Negative RSV PCR Negative Normal [facility] Comment on above: Performed By: #### L 500.2500, L100.0100 #### [facility] [address] [place], [address] Absolute lymphocyte countOrd ered By: Daquan Miller on 07-31-2023 Lymphocytes Auto (Unsp spec) [#/Vol] 1.21 10*3/uL 0.83-4.51 [facility] Automated lymphocyte count a s percentage of total leukocytesOrdered By: Daquan Miller on 07-31-2023 Lymphocytes/100 WBC Auto (Unsp spec) 29.6 % 19-41 [facility] Basic Metabolic Profile (BMP )on 07-31-2023 BUN/CRE 13.3 RATIO Normal 10-20 [facility] Comment on above: Performed By: #### L 500.2500, L100.0100 #### [facility] [address] [place], [address] CA,Total 8.6 mg/dL Normal 8.5-10.1 [facility] Comment on above: Performed By: #### L 500.2500, L100.0100 #### [facility] [address] [place], [address] Chloride [Moles/Vol] 101 mmol/L Normal 98-107 [facility] Comment on above: Performed By: #### L 500.2500, L100.0100 #### [facility] [address] [place], [address] CO2 [Moles/Vol] 25.0 mmol/L Normal 21.0-32.0 [facility] Comment on above: Performed By: #### L 500.2500, L100.0100 #### [facility] [address] [place], [address] Creatinine [Mass/Vol] 1.05 mg/dL Normal 0.70-1.30 [facility] Comment on above: Result Comment: The validity of the calculated GFR GFRAA in patients over 70 years has not been determined. Clinical correlation is essential. Performed By: #### L 500.2500, L100.0100 #### [facility] [address] [place], [address] ECRCL 111.55 ml/min Normal [facility] Comment on above: Performed By: #### L 500.2500, L100.0100 #### [facility] [address] [place], [address] EST GFR - AA 94 mL/min Normal >60 [facility] Comment on above: Result Comment: Afri can Citizen Of [place] GFR Calc Performed By: #### L 500.2500, L100.0100 #### [facility] [address] [place], [address] GAP 7 Normal 5-15 [facility] Comment on above: Performed By: #### L 500.2500, L100.0100 #### [facility] [address] [place], [address] GFR/1.73 sq M.predicted among non-blacks MDRD (S/P/Bld) [Vol rate/Area] 78 mL/min/{1.73_m2} Normal >60 [facility] Comment on above: Result Comment: Non- GFR Calc Performed By: #### L 500.2500, L100.0100 #### [facility] [address] [place], [address] Glucose [Mass/Vol] 328 mg/dL High 74-106 [facility] Comment on above: Result Comment: Gluc ose result greater than or equal to 200 mg/dL suggests DIABETES MELLITUS per A.D.A. criteria. Performed By: #### L 500.2500, L100.0100 #### [facility] [address] [place], [address] Potassium [Moles/Vol] 3.7 mmol/L Normal 3.5-5.1 [facility] Comment on above: Performed By: #### L 500.2500, L100.0100 #### [facility] [address] [place], [address] Sodium [Moles/Vol] 133 mmol/L Low 136-145 [facility] Comment on above: Performed By: #### L 500.2500, L100.0100 #### [facility] [address] [place], [address] Urea nitrogen [Mass/Vol] 14 mg/dL Normal 7-18 [facility] Comment on above: Performed By: #### L 500.2500, L100.0100 #### [facility] [address] [place], [address] Basophil percentageOrdered B y: Daquan Johnsonpasha on 07-31-2023 Basophils/100 WBC (Bld) 0.7 % 0-1 [facility] Chloride [Moles/Vol] 101 mmol/L 98-107 [facility] Eosinophils/100 WBC (Bld) 5.9 % 0-5 [facility] Glucose [Mass/Vol] 328 mg/dL 74-106 [facility] Comment on above: Glucose result great er than or equal to 200 mg/dLsuggests DIABETES MELLITUS per A.D.A. criteria. Hemoglobin (Bld) [Mass/Vol] 13.0 g/dL 13.0-16.5 [facility] Monocytes/100 WBC (Bld) 13.2 % 0-10 [facility] Neutrophils (Bld) [#/Vol] 2.0 10*3/uL 2.0-7.7 [facility] Neutrophils/100 WBC (Bld) 49.6 % 47-70 [facility] Potassium [Moles/Vol] 3.7 mmol/L 3.5-5.1 [facility] Sodium [Moles/Vol] 133 mmol/L 136-145 [facility] WBC (Bld) [#/Vol] 4.1 10*3/uL 4.4-11.0 [facility] Bedside Glucoseon 07-31-2023 FINGERSTICK GLU 384 mg/dL High 74-106 [facility] Comment on above: Result Comment: VERITO GEMENT OF PATIENT CARE PER NURSING PROTOCOL Performed By: #### L 501.080 #### [facility] [address] [place], [address] FINGERSTICK GLU 340 mg/dL High 74-106 [facility] Comment on above: Result Comment: VERITO GEMENT OF PATIENT CARE PER NURSING PROTOCOL Performed By: #### L 501.080 #### [facility] [address] [place], [address] FINGERSTICK GLU 342 mg/dL High 74-106 [facility] Comment on above: Result Comment: VERITO GEMENT OF PATIENT CARE PER NURSING PROTOCOL Performed By: #### L 501.080 #### [facility] [address] [place], [address] CBC W/Diff, Automatedon 07-03 Absolute Lymph 1.21 X10 3/uL Normal 0.83-4.51 [facility] Comment on above: Performed By: #### L 500.2500, L100.0100 #### [facility] [address] [place], [address] Absolute Neut 2.0 X10 3/uL Normal 2.0-7.7 [facility] Comment on above: Performed By: #### L 500.2500, L100.0100 #### [facility] [address] [place], [address] Basophils/100 WBC (Bld) 0.7 % Normal 0-1 [facility] Comment on above: Performed By: #### L 500.2500, L100.0100 #### [facility] [address] [place], [address] Eosinophils/100 WBC (Bld) 5.9 % High 0-5 [facility] Comment on above: Performed By: #### L 500.2500, L100.0100 #### [facility] [address] [place], [address] Erythrocyte distribution width (RBC) [Ratio] 13.0 % Normal 11.6-14.6 [facility] Comment on above: Performed By: #### L 500.2500, L100.0100 #### [facility] [address] [place], [address] Hematocrit (Bld) [Volume fraction] 38.3 % Low 40-54 [facility] Comment on above: Performed By: #### L 500.2500, L100.0100 #### [facility] [address] [place], [address] Hemoglobin (Bld) [Mass/Vol] 13.0 g/dL Normal 13.0-16.5 [facility] Comment on above: Performed By: #### L 500.2500, L100.0100 #### [facility] [address] [place], [address] IG% 1.000 High 0.0-0.9 [facility] Comment on above: Result Comment: IG% - Immature Granulocytes (promyelocytes, myelocytes and metamyelocytes) > 1% indicates that a LEFT SHIFT is Present. Performed By: #### L 500.2500, L100.0100 #### [facility] [address] [place], [address] Lymphocytes/100 WBC (Bld) 29.6 % Normal 19-41 [facility] Comment on above: Performed By: #### L 500.2500, L100.0100 #### [facility] [address] [place], [address] MCH (RBC) [Entitic mass] 28.9 pg Normal 27.0-32.0 [facility] Comment on above: Performed By: #### L 500.2500, L100.0100 #### [facility] [address] [place], [address] MCHC (RBC) [Mass/Vol] 33.9 g/dL Normal 32-36 [facility] Comment on above: Performed By: #### L 500.2500, L100.0100 #### [facility] [address] [place], [address] MCV (RBC) [Entitic vol] 85.1 fL Normal 80-94 [facility] Comment on above: Performed By: #### L 500.2500, L100.0100 #### [facility] [address] [place], [address] Monocytes/100 WBC (Bld) 13.2 % High 0-10 [facility] Comment on above: Performed By: #### L 500.2500, L100.0100 #### [facility] [address] [place], [address] Neutrophils/100 WBC (Bld) 49.6 % Normal 47-70 [facility] Comment on above: Performed By: #### L 500.2500, L100.0100 #### [facility] [address] [place], [address] Nucleated RBC (Bld) [#/Vol] 0 10*3/uL Normal 0-5 [facility] Comment on above: Performed By: #### L 500.2500, L100.0100 #### [facility] [address] [place], [address] Platelet mean volume (Bld) [Entitic vol] 10.3 fL Normal 6.2-12.0 [facility] Comment on above: Performed By: #### L 500.2500, L100.0100 #### [facility] Laboratory [address] [place], [address] Platelets (Bld) [#/Vol] 183 10*3/uL Normal 150-450 [facility] Comment on above: Performed By: #### L 500.2500, L100.0100 #### [facility] [address] [place], [address] RBC (Bld) [#/Vol] 4.50 10*6/uL Low 4.6-6.2 [facility] Comment on above: Performed By: #### L 500.2500, L100.0100 #### [facility] [address] [place], [address] RDW SD 40.0 fl Normal 35.1-43.9 [facility] Comment on above: Performed By: #### L 500.2500, L100.0100 #### [facility] [address] [place], [address] WBC (Bld) [#/Vol] 4.1 10*3/uL Low 4.4-11.0 [facility] Comment on above: Performed By: #### L 500.2500, L100.0100 #### [facility] [address] [place], [address] Determination of erythrocyte mean corpuscular volume (MCV)Ordered By: Daquan Miller on 07-31-2023 MCV (RBC) [Entitic vol] 85.1 fL 80-94 [facility] Discharge Instructionon 07-03 Discharge Instruction [facility] Medical Records Department [address] [place] [address] Instructions for Home/Discharge Instructions 07/31/23 1640 MR#: [id number] Acct: [id number] Name: LEIDY DC Turner Rep #: [id number] : 1970 52 From: Isaak Gallagher DO PCP: Dr. Dhaval Braden MD Status:ADM OLESYA Discharge Instructions Diet Discharge Diet: 1800 Calorie Control Diet Activity Discharge Activity: Return to Normal Activity Weight Bearing Status: Full weight bearing Follow Up Care Test Results: Test results from this visit will be discussed in further detail at your follow-up appointment, if applicable. Discharge Plan Admission Admit Date/Time: 07/30/23 14:44 Primary Reason for Your Visit: uncontrolled newly diagnosed Type 2 DM Attending Provider: Isaak Gallagher Primary Care Provider: Dhaval Braden Consulting Providers: Daquan Miller Instructions Additional Instructions / Restrictions: Check your blood sugars before each meal, you may give yourself additional Humalog insulin per sliding scale: 200???250: 5 units subcu, 251???300: 8 units subcu, 301???350: 12 units subcu Discharge Orders/Prescriptions Prescriptions: New insulin glargine-yfgn 100 unit/mL (3 mL) Insulin Pen 20 unit subcut BID Qty: 15 0RF Rx Instructions: Take with breakfast and supper daily insulin lispro [Humalog KwikPen Insulin] 100 unit/mL Insulin Pen 10 unit subcut TIDCM Qty: 15 0RF Continued acetaminophen 500 MG tablet 1,000 mg PO DAILY PRN (Reason: Pain) ibuprofen 200 MG tablet 400 - 600 mg PO DAILY PRN (Reason: Pain) fluoxetine 10 mg Tablet 20 mg PO DAILY lorazepam 1 mg tablet 1 mg PO DAILY PRN Patient Comments: TAKE 1 TABLET BY MOUTHEONCE DAILY NEEDED FORPANXIETY Xtampza ER 9 mg cap,sprinkl,ER12hr(DONT CRUSH) 18 mg PO BID Rx Instructions: must administer with a meal/food (DME) handicap placcard See Rx Instructions .Route .MEDSUPPLY Qty: 1 0RF Rx Instructions: dx: debility, CHF Lifetime albuterol sulfate 90 mcg/actuation HFA aerosol inhaler 2 puff inhalation Q4H PRN (Reason: shortness of breath or wheezing) Qty: 8.5 3RF aspirin [Adult Aspirin Regimen] 81 mg tablet,delayed release (DR/EC) 81 mg PO QDAY Qty: 90 3RF carvedilol 25 mg tablet 50 mg PO BID Qty: 360 3RF Rx Instructions: Hold for heart less than 60 or systolic blood pressure less than 100 mmHg. clonidine HCl 0.1 mg tablet 0.1 mg PO BID Qty: 180 3RF levothyroxine 25 mcg tablet 25 mcg PO DAILY Qty: 90 3RF rabeprazole [AcipHex] 20 mg tablet,delayed release (DR/EC) 20 mg PO DAILY Qty: 90 3RF nifedipine 60 mg tablet extended release 24hr 60 mg PO DAILY Qty: 30 11RF zolpidem 10 mg tablet 10 mg PO QHS PRN (Reason: sleep) Qty: 30 0RF quetiapine 200 mg tablet 200 mg PO .Four times a day Qty: 120 2RF Referrals / Follow Up: Dhaval Braden MD [Primary Care Provider] - In 1 Week Disposition Disposition (needs filled in before D/C Order can be placed): Home, Self Care 07/31/23 1651 Isaak Aileen BRUNO CC: Dr. Daquan Miller DO; Dr. Dhaval Braden MD Signed Normal [facility] Erythrocyte distribution wid th ratioOrdered By: Daquan Miller on 07-31-2023 Erythrocyte distribution width (RBC) [Ratio] 13.0 % 11.6-14.6 [facility] Erythrocyte distribution wid th standard deviationOrdered By: Daquan Miller on 07-31-2023 Erythrocyte distribution width (RBC) [Entitic vol] 40.0 fL 35.1-43.9 [facility] Hematocrit Auto (Bld) [Volum e fraction]Ordered By: Daquan Miller on 07-31-2023 Hematocrit (Bld) [Volume fraction] 38.3 % 40-54 [facility] Hemoglobin A1con 07-31-2023 HbA1c (Bld) [Mass fraction] 13.6 % High 3.8-5.6 [facility] Comment on above: Result Comment: Norm al < 5.7 % Prediabetic 5.7 - 6.4 % Diabetic >or= 6.5 % Please note range changes. Performed By: #### L 500.2500, L100.0100 #### [facility] [address] [place], [address] Immature granulocytes/100 WB C Auto (Bld)Ordered By: Daquan Miller on 07-31-2023 Immature granulocytes/100 WBC (Bld) 1.000 % 0.0-0.9 [facility] Comment on above: IG% - Immature Granu locytes (promyelocytes, myelocytes and metamyelocytes) > 1% indicates that a LEFT SHIFT is Present. Laboratory - Chemistry and C hemistry - challengeOrdered By: Daquan Miller on 07-31-2023 CO2 [Moles/Vol] 25.0 mmol/L 21.0-32.0 [facility] Urea nitrogen/Creatinine [Mass ratio] 13.3 mg/mg 10-20 [facility] Laboratory - Hematology and Cell countsOrdered By: Daquan Miller on 07-31-2023 MCH (RBC) [Entitic mass] 28.9 pg 27.0-32.0 [facility] MCHC (RBC) [Mass/Vol] 33.9 g/dL 32-36 [facility] Nucleated RBC/100 WBC (Bld) [Ratio] 0 % 0-5 [facility] Platelet mean volume (Bld) [Entitic vol] 10.3 fL 6.2-12.0 [facility] Platelets (Bld) [#/Vol] 183 10*3/uL 150-450 [facility] No Panel InformationOrdered By: Daquan Miller on 07-31-2023 Estimated Creatinine Clearance Calc 111.55 ml/min [facility] Estimated GFR (MDRD) Amer 94 mL/min >60 [facility] Comment on above: GFR Calc Estimated GFR (MDRD) Non-Af Amer 78 mL/min >60 [facility] Comment on above: Non- GFR Calc RBC Auto (Bld) [#/Vol]Ordere d By: Daquan Miller on 07-31-2023 RBC (Bld) [#/Vol] 4.50 10*6/uL 4.6-6.2 [facility] Serum or plasma calcium jorje urement (mass/volume)Ordered By: Daquan Miller on 07-31-2023 Calcium [Mass/Vol] 8.6 mg/dL 8.5-10.1 [facility] Serum or plasma creatinine m easurement (mass/volume)Ordered By: Daquan Miller on 07-31-2023 Creatinine [Mass/Vol] 1.05 mg/dL 0.70-1.30 [facility] Comment on above: The validity of the calculated GFR & GFRAA in patients over 70 years has not been determined. Clinical correlation is essential. Serum or plasma thyroid stim ulating hormone (TSH) measurement (units/volume)Ordered By: Daquan Miller on 07-31-2023 TSH Qn 4.02 uIU/mL 0.358-3.74 [facility] Serum or plasma urea nitroge n measurement (mass/volume)Ordered By: Daquan Miller on 07-31-2023 Urea nitrogen [Mass/Vol] 14 mg/dL 7-18 [facility] Thin prep Papanicolaou smear with manual screeningOrdered By: Isaak Gallagher on 07-31-2023 Thin prep Papanicolaou smear with manual screening 384 mg/dL 74-106 [facility] Comment on above: MANAGEMENT OF PATIEN T CARE PER NURSING PROTOCOL Thin prep Papanicolaou smear with manual screeningOrdered By: Daquan Miller on 07-31-2023 Thin prep Papanicolaou smear with manual screening 7 5-15 [facility] Thyroid Stim Hormone (TSH)on 07-31-2023 TSH 4.02 uIU/mL High 0.358-3.74 [facility] Comment on above: Performed By: #### L 500.2500, L100.0100 #### [facility] [address] [place], [address] Whole blood hemoglobin A1c/t otal hemoglobin ratio (mass fraction)Ordered By: Daquan Miller on 07-31-2023 HbA1c (Bld) [Mass fraction] 13.6 % 3.8-5.6 [facility] Comment on above: Normal < 5.7 % Predi abetic 5.7 - 6.4 % Diabetic >or= 6.5 % Please note range changes. Absolute lymphocyte countOrd ered By: Savanah Martinez on 07-30-2023 Lymphocytes Auto (Unsp spec) [#/Vol] 0.97 10*3/uL 0.83-4.51 [facility] Acetone Serumon 07-30-2023 ACETONE SERUM Negative Normal NEG [facility] Comment on above: Performed By: #### L 503.6620 #### [facility] [address] [place], [address] Automated lymphocyte count a s percentage of total leukocytesOrdered By: Savanah Martinez on 07-30-2023 Lymphocytes/100 WBC Auto (Unsp spec) 19.7 % 19-41 [facility] Base excessOrdered By: Daquan Miller on 07-30-2023 Base excess Calc (BldV) [Moles/Vol] 1 mmol/L -1.0-3.5 [facility] Basic Metabolic Profile (BMP )on 07-30-2023 BUN/CRE 11.5 RATIO Normal 10-20 [facility] Comment on above: Performed By: #### L 503.6620 #### [facility] [address] [place], [address] CA,Total 8.5 mg/dL Normal 8.5-10.1 [facility] Comment on above: Performed By: #### L 503.6620 #### [facility] [address] [place], [address] Chloride [Moles/Vol] 92 mmol/L Low 98-107 [facility] Comment on above: Performed By: #### L 503.20 #### [facility] [address] [place], [address] CO2 [Moles/Vol] 25.0 mmol/L Normal 21.0-32.0 [facility] Comment on above: Performed By: #### L 503.20 #### [facility] [address] [place], [address] Creatinine [Mass/Vol] 1.65 mg/dL High 0.70-1.30 [facility] Comment on above: Result Comment: The validity of the calculated GFR GFRAA in patients over 70 years has not been determined. Clinical correlation is essential. Performed By: #### L 503.20 #### [facility] [address] [place], [address] ECRCL 70.80 ml/min Normal [facility] Comment on above: Performed By: #### L 328.20 #### [facility] [address] [place], [address] EST GFR - AA 56 mL/min Low >60 [facility] Comment on above: Result Comment: Afri can Citizen Of [place] GFR Calc Performed By: #### L 822.6620 #### [facility] [address] [place], [address] GAP 8 Normal 5-15 [facility] Comment on above: Performed By: #### L 503.6620 #### [facility] [address] [place], [address] GFR/1.73 sq M.predicted among non-blacks MDRD (S/P/Bld) [Vol rate/Area] 46 mL/min/{1.73_m2} Low >60 [facility] Comment on above: Result Comment: Non- GFR Calc Performed By: #### L 503.6620 #### [facility] [address] [place], [address] Glucose [Mass/Vol] 841 mg/dL Invalid Interpretation Code 74-106 [facility] Comment on above: Result Comment: Crit ical Result(s) Called at: 14:08:20 07/30/2023 by: Shawnee Mora to [facility]. Results read back by same. Glucose result greater than or equal to 200 mg/dL suggests DIABETES MELLITUS per A.D.A. criteria. Performed By: #### L 503.6620 #### [facility] [address] [place], [address] Potassium [Moles/Vol] 4.0 mmol/L Normal 3.5-5.1 [facility] Comment on above: Performed By: #### L 503.6620 #### [facility] [address] [place], [address] Sodium [Moles/Vol] 125 mmol/L Low 136-145 [facility] Comment on above: Performed By: #### L 503.6620 #### [facility] [address] [place], [address] Urea nitrogen [Mass/Vol] 19 mg/dL High 7-18 [facility] Comment on above: Performed By: #### L 503.6620 #### [facility] [address] [place], [place], [address] Basophil percentageOrdered B y: Savanah Martinez on 07-30-2023 Basophil percentage 0 SEEN /hpf 0-5 [facility] Basophils/100 WBC (Bld) 0.8 % 0-1 [facility] Chloride [Moles/Vol] 92 mmol/L 98-107 [facility] Eosinophils/100 WBC (Bld) 3.7 % 0-5 [facility] Glucose [Mass/Vol] 841 mg/dL 74-106 [facility] Comment on above: Critical Result(s) C alled at: 14:08:20 07/30/2023 by: Shawnee Suero. Results read back by same.Glucose result greater than or equal to 200 mg/dLsuggests DIABETES MELLITUS per A.D.A. criteria. Hemoglobin (Bld) [Mass/Vol] 13.6 g/dL 13.0-16.5 [facility] Monocytes/100 WBC (Bld) 12.6 % 0-10 [facility] Neutrophils (Bld) [#/Vol] 3.0 10*3/uL 2.0-7.7 [facility] Neutrophils/100 WBC (Bld) 61.8 % 47-70 [facility] Potassium [Moles/Vol] 4.0 mmol/L 3.5-5.1 [facility] Sodium [Moles/Vol] 125 mmol/L 136-145 [facility] WBC (Bld) [#/Vol] 4.9 10*3/uL 4.4-11.0 [facility] Bedside Glucoseon 07-30-2023 FINGERSTICK GLU 392 mg/dL High 74-106 [facility] Comment on above: Result Comment: VERITO GEMENT OF PATIENT CARE PER NURSING PROTOCOL Performed By: #### L 500.2500, L100.0100 #### [facility] [address] [place], [place], [address] FINGERSTICK GLU 399 mg/dL High 74-106 [facility] Comment on above: Result Comment: VERITO GEMENT OF PATIENT CARE PER NURSING PROTOCOL Performed By: #### L 503.6620 #### [facility] [address] [place], [address] FINGERSTICK GLU 489 mg/dL Invalid Interpretation Code 74-106 [facility] Comment on above: Result Comment: Dr Saravanan dutta Followed MANAGEMENT OF PATIENT CARE PER NURSING PROTOCOL Performed By: #### L 9000.0810 #### [facility] [address] [place], [address] Bilirubin Test strip Ql (U)O rdered By: Savanah Martinez on 07-30-2023 Bilirubin Ql (U) Negative Negative [facility] CBC W/Diff, Automatedon 07-03 Absolute Lymph 0.97 X10 3/uL Normal 0.83-4.51 [facility] Comment on above: Performed By: #### L 503.6620 #### [facility] [address] [place], [address] Absolute Neut 3.0 X10 3/uL Normal 2.0-7.7 [facility] Comment on above: Performed By: #### L 503.6620 #### [facility] [address] [place], [address] Basophils/100 WBC (Bld) 0.8 % Normal 0-1 [facility] Comment on above: Performed By: #### L 503.6620 #### [facility] [address] [place], [address] Eosinophils/100 WBC (Bld) 3.7 % Normal 0-5 [facility] Comment on above: Performed By: #### L 503.6620 #### [facility] [address] [place], [address] Erythrocyte distribution width (RBC) [Ratio] 13.0 % Normal 11.6-14.6 [facility] Comment on above: Performed By: #### L 503.6620 #### [facility] [address] [place], [address] Hematocrit (Bld) [Volume fraction] 41.0 % Normal 40-54 [facility] Comment on above: Performed By: #### L 503.6620 #### [facility] [address] [place], [address] Hemoglobin (Bld) [Mass/Vol] 13.6 g/dL Normal 13.0-16.5 [facility] Comment on above: Performed By: #### L 503.20 #### [facility] [address] [place], [address] IG% 1.400 High 0.0-0.9 [facility] Comment on above: Result Comment: IG% - Immature Granulocytes (promyelocytes, myelocytes and metamyelocytes) > 1% indicates that a LEFT SHIFT is Present. Performed By: #### L 503.20 #### [facility] [address] [place], [address] Lymphocytes/100 WBC (Bld) 19.7 % Normal 19-41 [facility] Comment on above: Performed By: #### L 503.20 #### [facility] [address] [place], [address] MCH (RBC) [Entitic mass] 28.5 pg Normal 27.0-32.0 [facility] Comment on above: Performed By: #### L 503.6620 #### [facility] [address] [place], [address] MCHC (RBC) [Mass/Vol] 33.2 g/dL Normal 32-36 [facility] Comment on above: Performed By: #### L 503.6620 #### [facility] [address] [place], [address] MCV (RBC) [Entitic vol] 86.0 fL Normal 80-94 [facility] Comment on above: Performed By: #### L 503.6620 #### [facility] [address] [place], [address] Monocytes/100 WBC (Bld) 12.6 % High 0-10 [facility] Comment on above: Performed By: #### L 503.20 #### [facility] [address] [place], [address] Neutrophils/100 WBC (Bld) 61.8 % Normal 47-70 [facility] Comment on above: Performed By: #### L 503.20 #### [facility] [address] [place], [address] Nucleated RBC (Bld) [#/Vol] 0 10*3/uL Normal 0-5 [facility] Comment on above: Performed By: #### L 503.20 #### [facility] [address] [place], [address] Platelet mean volume (Bld) [Entitic vol] 10.5 fL Normal 6.2-12.0 [facility] Comment on above: Performed By: #### L 503.20 #### [facility] [address] [place], [address] Platelets (Bld) [#/Vol] 198 10*3/uL Normal 150-450 [facility] Comment on above: Performed By: #### L 503.20 #### [facility] [address] [place], [address] RBC (Bld) [#/Vol] 4.77 10*6/uL Normal 4.6-6.2 [facility] Comment on above: Performed By: #### L 503.20 #### [facility] [address] [place], [address] RDW SD 39.8 fl Normal 35.1-43.9 [facility] Comment on above: Performed By: #### L 503.20 #### [facility] [address] [place], [place], [address] WBC (Bld) [#/Vol] 4.9 10*3/uL Normal 4.4-11.0 [facility] Comment on above: Performed By: #### L 503.6620 #### [facility] [address] [place], [address] CO2 (BldV) [Moles/Vol]Ordere d By: Daquan Milelr on 07-30-2023 CO2 [Moles/Vol] 27 mmol/L 23-33 [facility] Determination of erythrocyte mean corpuscular volume (MCV)Ordered By: Savanah Martinez on 07-30-2023 MCV (RBC) [Entitic vol] 86.0 fL 80-94 [facility] Emergency Department Summary on 07-30-2023 Emergency Department Summary [facility] Medical Records Department [address] [place] [address] Emergency Department Summary 07/30/23 MR#: [id number] Acct: [id number] Name: LEIDY DC Rep #: [id number] : 1970 52 From: Savanah BASS PCP: Dr. Dhaval Braden MD Status:ADM OLESYA Location: [address] History of Present Illness Chief Complaint: Hyperglycemia Narrative Narrative: 52-year-old male with past medical history Marfan's disease was sent in by his primary care's office when a fingerstick glucose was 580. He does not have a known history of diabetes. He states 7 weeks ago he got a spinal injection for chronic pain and since then he has been extremely thirsty, fatigued, and has increased urination. He lost 20 pounds. [facility] Medical History (Updated 07/30/23 @ 14:[address] 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 Essential (primary) hypertension (05/20/18) GERD (gastroesophageal reflux disease) History of aortic dissection Hyperkalemia Hyperlipidemia Hypertensive urgency Hypoxia Infection of external auditory canal Marfan syndrome Marfans syndrome Nonobstructive atherosclerosis of coronary artery NEO (obstructive sleep apnea) Uncontrolled hypertension Home Medications acetaminophen 500 mg tablet 1,000 mg PO DAILY PRN Pain 05/19/18 [History Last Taken 05/19/18] ibuprofen 200 mg tablet 400 - 600 mg PO DAILY PRN Pain 05/19/18 [History Last Taken 05/19/18] handicap placcard #1 ea 03/15/21 [Rx Last Taken Unknown] fenofibrate 160 mg tablet 160 mg PO DAILY #90 tabs 09/18/21 [Rx Last Taken Unknown] albuterol sulfate 90 mcg/actuation aerosol inhaler 2 puff inhalation Q4H PRN shortness of breath or wheezing #8.5 grams 10/03/21 [Rx Last Taken Unknown] aspirin 81 mg tablet,delayed release (Adult Aspirin Regimen) 81 mg PO QDAY #90 tabs 09/16/22 [Rx Last Taken Unknown] carvedilol 25 mg tablet 50 mg (2 x 25 mg) PO BID #360 tabs 09/16/22 [Rx Last Taken Unknown] clonidine HCl 0.1 mg tablet 0.1 mg PO BID blood pressure #180 tabs 09/16/22 [Rx Last Taken Unknown] clopidogrel 75 mg tablet 75 mg PO DAILY heart health #90 tabs 09/16/22 [Rx Last Taken Unknown] hydralazine 50 mg tablet 150 mg (3 x 50 mg) PO TID #810 tabs 09/16/22 [Rx Last Taken Unknown] buprenorphine 20 mcg/hour weekly transdermal patch 10/13/22 [History Last Taken Unknown] fluoxetine 10 mg tablet 10 mg PO DAILY 10/13/22 [History Last Taken Unknown] hydrocodone-acetaminoph en 5-325mg 5mg-325mg 1 tab PO BID PRN Pain 10/13/22 [History Last Taken Unknown] isosorbide dinitrate 30 mg tablet 30 mg PO BID blood pressure 10/13/22 [History Last Taken Unknown] lorazepam 1 mg tablet mg 10/13/22 [History Last Taken Unknown] amoxicillin 875 mg-potassium clavulanate 125 mg tablet 1 tab PO BID #8 tabs 10/17/22 [Rx Last Taken Unknown] ferrous sulfate 325 mg (65 mg iron) tablet (FeroSul) 325 mg PO DAILY@1200 #30 tabs 10/17/22 [Rx Last Taken Unknown] levothyroxine 25 mcg tablet 25 mcg PO DAILY #90 tabs 01/16/23 [Rx Last Taken Unknown] rabeprazole 20 mg tablet,delayed release (AcipHex) 20 mg PO DAILY stomach #90 tabs 02/03/23 [Rx Last Taken Unknown] nifedipine 60 mg tablet,extended release 24 hr 60 mg PO DAILY BP #30 tabs 02/26/23 [Rx Last Taken Unknown] zolpidem 10 mg tablet 10 mg PO QHS PRN sleep #30 tabs 04/30/23 [Rx Last Taken Unknown] quetiapine 200 mg tablet 200 mg PO .Four times a day sleep #120 tabs 05/11/23 [Rx Last Taken Unknown] Allergy/AdvReac Type Severity Reaction Status Date / Time Quinolones Allergy Unknown PT UNSURE Verified 07/30/23 13:04 OF REACTION ciprofloxacin [From Cipro] Allergy Rash Verified 07/30/23 13:04 ciprofloxacin HCl Allergy Rash Verified 07/30/23 13:04 [From Cipro] sulfamethoxazole Allergy Rash Verified 07/30/23 13:04 [From Bactrim] tramadol Allergy Itching Verified 07/30/23 13:04 trimethoprim [From Bactrim] Allergy Rash Verified 07/30/23 13:04 Family History Son Marfans syndrome Daughter Marfans syndrome Father Hypertension Grandfather Heart disease Myocardial infarction CVA (cerebral vascular accident) Grandmother Heart disease Surgical History H/O coronary artery bypass surgery (03/08/11) History of hand surgery History of left heart catheterization (12/14/20) History of mitral valve repair (03/08/11) History of open reduction and internal fixation (ORIF) procedure (2016) History of surgical fusion joint History of tonsillectomy Hx of ascending aorta replacement (03/08/11) Social History household members: spouse Smoking Status: Never smoker alcohol (more content not included)... Normal [facility] Erythrocyte distribution wid th ratioOrdered By: Savanah Martinez on 07-30-2023 Erythrocyte distribution width (RBC) [Ratio] 13.0 % 11.6-14.6 [facility] Erythrocyte distribution wid th standard deviationOrdered By: Savanah Martinez on 07-30-2023 Erythrocyte distribution width (RBC) [Entitic vol] 39.8 fL 35.1-43.9 [facility] H AND P Exam - Hospitaliston 07-30-2023 H&P Exam - Hospitalist [facility] Medical Records Department [address] [place] [address] H P Exam - Hospitalist 07/30/23 1455 MR#: [id number] Acct: [id number] Name: LEIDY DC Rep #: [id number] : 1970 52 From: Daquan Miller DO PCP: Dr. Dhaval Braden MD Status:REG ER Location: ED HPI - General General Date of Service: 07/30/23 Chief Complaint: Polyuria. Polydipsia. HPI Narrative LEIDY DC, is a 52 M who presents who for the past few weeks, has been experiencing polyuria, polydipsia, diffuse myalgias and feeling unwell. Over the past few months he is also been losing roughly about 30 pounds. Present to the emergency room and his glucose was a 41. Patient did receive IV fluids. The hospital service was consulted for admission. The physician speech pathology assistant in the emergency room ordered for an insulin drip. Being that is not in DKA, I discontinued that and ordered a dose of Humalog. Patient has been checked for diabetes in the past and has never been tested positive though should be noted that his glucose was 163 back in October. Patient today's had an A1c at that time which was 5.3. 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 Essential (primary) hypertension (05/20/18) GERD (gastroesophageal reflux disease) History of aortic dissection Hyperkalemia Hyperlipidemia Hypertensive urgency Hypoxia Infection of external auditory canal Marfan syndrome Marfans syndrome Nonobstructive atherosclerosis of coronary artery NEO (obstructive sleep apnea) Uncontrolled hypertension Home Medications acetaminophen 500 mg tablet 1,000 mg PO DAILY PRN Pain 05/19/18 [History Last Taken 05/19/18] ibuprofen 200 mg tablet 400 - 600 mg PO DAILY PRN Pain 05/19/18 [History Last Taken 05/19/18] handicap placcard #1 ea 03/15/21 [Rx Last Taken Unknown] fenofibrate 160 mg tablet 160 mg PO DAILY #90 tabs 09/18/21 [Rx Last Taken Unknown] albuterol sulfate 90 mcg/actuation aerosol inhaler 2 puff inhalation Q4H PRN shortness of breath or wheezing #8.5 grams 10/03/21 [Rx Last Taken Unknown] aspirin 81 mg tablet,delayed release (Adult Aspirin Regimen) 81 mg PO QDAY #90 tabs 09/16/22 [Rx Last Taken Unknown] carvedilol 25 mg tablet 50 mg (2 x 25 mg) PO BID #360 tabs 09/16/22 [Rx Last Taken Unknown] clonidine HCl 0.1 mg tablet 0.1 mg PO BID blood pressure #180 tabs 09/16/22 [Rx Last Taken Unknown] clopidogrel 75 mg tablet 75 mg PO DAILY heart health #90 tabs 09/16/22 [Rx Last Taken Unknown] hydralazine 50 mg tablet 150 mg (3 x 50 mg) PO TID #810 tabs 09/16/22 [Rx Last Taken Unknown] buprenorphine 20 mcg/hour weekly transdermal patch 10/13/22 [History Last Taken Unknown] fluoxetine 10 mg tablet 10 mg PO DAILY 10/13/22 [History Last Taken Unknown] hydrocodone-acetaminoph en 5-325mg 5mg-325mg 1 tab PO BID PRN Pain 10/13/22 [History Last Taken Unknown] isosorbide dinitrate 30 mg tablet 30 mg PO BID blood pressure 10/13/22 [History Last Taken Unknown] lorazepam 1 mg tablet mg 10/13/22 [History Last Taken Unknown] amoxicillin 875 mg-potassium clavulanate 125 mg tablet 1 tab PO BID #8 tabs 10/17/22 [Rx Last Taken Unknown] ferrous sulfate 325 mg (65 mg iron) tablet (FeroSul) 325 mg PO DAILY@1200 #30 tabs 10/17/22 [Rx Last Taken Unknown] levothyroxine 25 mcg tablet 25 mcg PO DAILY #90 tabs 01/16/23 [Rx Last Taken Unknown] rabeprazole 20 mg tablet,delayed release (AcipHex) 20 mg PO DAILY stomach #90 tabs 02/03/23 [Rx Last Taken Unknown] nifedipine 60 mg tablet,extended release 24 hr 60 mg PO DAILY BP #30 tabs 02/26/23 [Rx Last Taken Unknown] zolpidem 10 mg tablet 10 mg PO QHS PRN sleep #30 tabs 04/30/23 [Rx Last Taken Unknown] quetiapine 200 mg tablet 200 mg PO .Four times a day sleep #120 tabs 05/11/23 [Rx Last Taken Unknown] Allergy/AdvReac Type Severity Reaction Status Date / Time Quinolones Allergy Unknown PT UNSURE Verified 07/30/23 15:02 OF REACTION ciprofloxacin [From Cipro] Allergy Rash Verified 07/30/23 15:02 ciprofloxacin HCl Allergy Rash Verified 07/30/23 15:02 [From Cipro] sulfamethoxazole Allergy Rash Verified 07/30/23 15:02 [From Bactrim] tramadol Allergy Itching Verified 07/30/23 15:02 trimethoprim [From Bactrim] Allergy Rash Verified 07/30/23 15:02 Family History Son Marfans syndrome Daughter Marfans syndrome Father Hypertension Grandfather Heart disease Myocardial infarction CVA (cerebral vascular accident) Grandmother Heart disease Surgical History H/O coronary artery bypass surgery (03/08/11) History of hand surgery History of left heart catheteri (more content not included)... Normal [facility] Hematocrit Auto (Bld) [Volum e fraction]Ordered By: Savanah Martinez on 07-30-2023 Hematocrit (Bld) [Volume fraction] 41.0 % 40-54 [facility] Immature granulocytes/100 WB C Auto (Bld)Ordered By: Savanah Martinez on 07-30-2023 Immature granulocytes/100 WBC (Bld) 1.400 % 0.0-0.9 [facility] Comment on above: IG% - Immature Granu locytes (promyelocytes, myelocytes and metamyelocytes) > 1% indicates that a LEFT SHIFT is Present. Ketones Test strip Ql (U)Ord ered By: Savanah Martinez on 07-30-2023 Ketones Ql (U) Negative Negative [facility] Laboratory - Chemistry and C hemistry - challengeOrdered By: Daquan Miller on 07-30-2023 HCO3 (Bld) [Moles/Vol] 26 mmol/L - [facility] Laboratory - Chemistry and C hemistry - challengeOrdered By: Savanah Martinez on 07-30-2023 CO2 [Moles/Vol] 25.0 mmol/L 21.0-32.0 [facility] Urea nitrogen/Creatinine [Mass ratio] 11.5 mg/mg 10-20 [facility] Laboratory - Hematology and Cell countsOrdered By: Savanah Martinez on 07-30-2023 MCH (RBC) [Entitic mass] 28.5 pg 27.0-32.0 [facility] MCHC (RBC) [Mass/Vol] 33.2 g/dL 32- [facility] Nucleated RBC/100 WBC (Bld) [Ratio] 0 % 0-5 [facility] Platelet mean volume (Bld) [Entitic vol] 10.5 fL 6.2-12.0 [facility] Platelets (Bld) [#/Vol] 198 10*3/uL 150-450 [facility] Mucus LM Ql (Urine sed)Order ed By: Savanah Martinez on 07-30-2023 Mucus Ql (Urine sed) 0 SEEN /hpf [facility] Nitrite Test strip Ql (U)Ord ered By: Savanah Martinez on 07-30-2023 Nitrite Ql (U) Negative Negative [facility] No Panel InformationOrdered By: Savanah Martinez on 07-30-2023 Urine RBC 0 SEEN /hpf 0-5 [facility] Estimated Creatinine Clearance Calc 70.80 ml/min [facility] Estimated GFR (MDRD) Amer 56 mL/min >60 [facility] Comment on above: GFR Calc Estimated GFR (MDRD) Non-Af Amer 46 mL/min >60 [facility] Comment on above: Non- GFR Calc No Panel InformationOrdered By: Daquan Miller on 07-30-2023 Blood Gas Sample Site Not entered [facility] Blood Gas Specimen Type ALEJANDRA [facility] Oxygen Delivery Device Not entered [facility] PCO2 venousOrdered By: Daquan Miller on 07-30-2023 CO2 (BldV) [Partial pressure] 44.8 mm[Hg] 41-51 [facility] PO2 venousOrdered By: Daquan hines on 07-30-2023 Oxygen (BldV) [Partial pressure] 33 mm[Hg] 25-40 [facility] Protein Test strip Ql (U)Ord ered By: Savanah Martinez on 07-30-2023 Protein Ql (U) 30 mg/dl Negative [facility] RBC Auto (Bld) [#/Vol]Ordere d By: Savanah Martinez on 07-30-2023 RBC (Bld) [#/Vol] 4.77 10*6/uL 4.6-6.2 [facility] Serum or plasma acetone jorje urement (mass/volume)Ordered By: Savanah Martinez on 07-30-2023 Acetone [Mass/Vol] Negative NEG [facility] Serum or plasma calcium jorje urement (mass/volume)Ordered By: Savanah Martinez on 07-30-2023 Calcium [Mass/Vol] 8.5 mg/dL 8.5-10.1 [facility] Serum or plasma creatinine m easurement (mass/volume)Ordered By: Savanah Martinez on 07-30-2023 Creatinine [Mass/Vol] 1.65 mg/dL 0.70-1.30 [facility] Comment on above: The validity of the calculated GFR & GFRAA in patients over 70 years has not been determined. Clinical correlation is essential. Serum or plasma urea nitroge n measurement (mass/volume)Ordered By: Savanah Martinez on 07-30-2023 Urea nitrogen [Mass/Vol] 19 mg/dL 7-18 [facility] Squamous epithelial cells de tection in urine sediment by light microscopyOrdered By: Savanah Martinez on 07-30-2023 Epithelial cells.squamous LM Ql (Urine sed) 0 SEEN /hpf 0-5 [facility] Thin prep Papanicolaou smear with manual screeningOrdered By: Savanah Martinez on 07-30-2023 Thin prep Papanicolaou smear with manual screening 8 5-15 [facility] Urinalysis, Completeon 07-29 BACTERIA 0 SEEN Normal None Seen [facility] Comment on above: Order Comment: CLEAN CATCH Performed By: #### L 500.2500, L100.0100 #### [facility] Laboratory [address] [place], [address] EPI,SQUAMOUS 0 SEEN Normal 0-5 [facility] Comment on above: Order Comment: CLEAN CATCH Performed By: #### L 500.2500, L100.0100 #### [facility] [address] [place], [address] Mucus Ql (Urine sed) 0 SEEN Normal [facility] Comment on above: Order Comment: CLEAN CATCH Performed By: #### L 500.2500, L100.0100 #### [facility] [address] [place], [address] RBC 0 SEEN Normal 0-5 [facility] Comment on above: Order Comment: CLEAN CATCH Performed By: #### L 500.2500, L100.0100 #### [facility] [address] [place], [address] WBC 0 SEEN Normal [address] [place] [address] Comment on above: Order Comment: CLEAN CATCH Performed By: #### L 500.2500, L100.0100 #### [facility] [address] [place], [address] Urine blood detectionOrdered By: Savanah Martinez on 07-30-2023 RBC Ql (U) 10 /ul Negative [facility] Urine clarityOrdered By: Rosalinda Martinez on 07-30-2023 Clarity (U) Clear Clear [facility] Urine color determinationOrd ered By: Savanah Martinez on 07-30-2023 Color (U) Yellow Yellow [facility] Urine glucose detectionOrder ed By: Savanah Martinez on 07-30-2023 Glucose Ql (U) 1000 mg/dl Normal [facility] Urine leukocyte esterase det ection by dipstickOrdered By: Savanah Martinez on 07-30-2023 Leukocyte esterase Test strip Ql (U) Negative Negative [facility] Urine pHOrdered By: Savanah verdin on 07-30-2023 pH (U) 6.5 [pH] 5.0 - 8.0 [facility] Urine sediment bacteria coun t by microscopy (number/high power field)Ordered By: Savanah Martinez on 07-30-2023 Bacteria LM.HPF (Urine sed) [#/Area] 0 /[HPF] None Seen [facility] Urine specific gravity measu rementOrdered By: Savanah Martinez on 07-30-2023 Specific gravity (U) [Rel density] 1.005 1.002-1.030 [facility] Urine urobilinogen measureme ntOrdered By: Savanah Martinez on 07-30-2023 Urobilinogen Ql (U) Normal mg/dl Normal [facility] Venous Blood Gason Blood Gas Type ALEJANDRA Normal [facility] Comment on above: Performed By: #### L 9000.0810 #### [facility] [address] [place], [address] CO2 [Moles/Vol] 27 mmol/L Normal 23-33 [facility] Comment on above: Performed By: #### L 9000.0810 #### [facility] [address] [place], [address] HCO3 (Bld) [Moles/Vol] 26 mmol/L Normal 22-26 [facility] Comment on above: Performed By: #### L 0.0810 #### [facility] [address] [place], [address] O2 Delivery Dev Not entered Normal [facility] Comment on above: Performed By: #### L 8999.0810 #### [facility] [address] [place], [address] SITE Not entered Normal [facility] Comment on above: Performed By: #### L 0.0810 #### [facility] [address] [place], [address] VBG BE 1 mmol/L Normal -1.0-3.5 [facility] Comment on above: Performed By: #### L 9000.0810 #### [facility] [address] [place], [address] VBG pCO2 44.8 mmHg Normal 41-51 [facility] Comment on above: Performed By: #### L 9000.0810 #### [facility] [address] [place], [address] VBG pH 7.37 Normal 7.32-7.42 [facility] Comment on above: Performed By: #### L 9000.0810 #### [facility] [address] [place], [address] VBG PO2 33 mmHg Normal 25-40 [facility] Comment on above: Performed By: #### L 9000.0810 #### [facility] [address] [place], [address] VBG SO2 60 Normal 50-70 [facility] Comment on above: Performed By: #### L 9000.0810 #### [facility] [address] [place], [address] Venous blood pH measurementO rdered By: Daquan Miller on 07-30-2023 pH (BldV) 7.37 [pH] 7.32-7.42 [facility] Vital signsOrdered By: Daquan Miller on 07-30-2023 Oxygen saturation in Blood 60 % 50-70 [facility] CNCOon 11-26-2022 CNCO Letter Text Normal [facility] Robbi 11-21-2022 ESE Telephone (HEMAWS) LEIDY DC ([id number]) 1970 M Date Time Provider Department 11/21/22 SOTO CISNEROS During your visit today, we recorded the following information about you: RenzoIna 11/21/2022 11:24 AM Signed New Patient referral received. DX: ANEMIA REF PROV: DHAVAL BRADEN INS: [facility] for patient to return call. When patient calls, please schedule first New Patient appointment with either provider that works for the patient. Ina Muller [place], 11/23/2022 2:32 PM Signed 2nd attempt: AMPARO [place], 11/26/2022 2:36 PM Signed 3RD and Final attempt: AMPARO and sent unable to reach letter Allergies As of Date: 11/21/2022 Noted Allergy Reaction BACTRIM (SULFAMETHOXAZOLE-TRIME TH*04/14/2015 4 - Hives CIPROFLOXACIN 04/12/2015 4 - Hives TRAMADOL 11/27/2016 2 - Rash Date Reviewed: 10/09/2021 Reviewed by: Brad Cat Ma - Fully Assessed Reason for Visit: New Patient [172] Prescriptions as of 11/26/2022 - LORazepam (ATIVAN) 1 mg tablet - Amphetamine-Dextroamphe tamine (ADDERALL) 30 mg tablet Take 1 tablet by mouth twice daily. - zolpidem (AMBIEN) 10 mg Take 10 mg by mouth daily at bedtime. - sildenafil (VIAGRA) 100 mg tablet 1 TABLET(S) ORALLY 1 TIMES DIRECTED - RABEprazole (ACIPHEX) 20 mg tablet Take 1 tablet by mouth once daily. - buprenorphine (BUTRANS) 5 mcg/hour Apply 1 Patch as directed one time a week for 30 days. - levothyroxine (SYNTHROID) 25 mcg tablet Take 1 tablet by mouth once daily. - citalopram hydrobromide (CELEXA) 10 mg tablet Take 1 tablet by mouth once daily. - cyanocobalamin 2,000 mcg tab Take 1 tablet by mouth once daily. - QUEtiapine (SEROQUEL) 50 mg tablet Take 1 tablet by mouth daily at bedtime. - methocarbamol (ROBAXIN) 500 mg tablet Take 1 tablet by mouth every 6 hours as needed. - lidocaine (SALONPAS) 4 % patch Apply 2 Patches as directed once daily. - isosorbide dinitrate (ISORDIL, SORBITRATE) 30 mg tablet Take 1 tablet by mouth three times daily. - hydrALAZINE (APRESOLINE) 50 mg tablet Take 3 tablets by mouth every 8 hours. - cetirizine (ZYRTEC) 10 mg tablet Take 1 tablet by mouth once daily as needed (allergy). - aspirin 81 mg chewable tablet Take 1 tablet by mouth once daily. - NIFEdipine ER (PROCARDIA XL) 90 mg 24 hr tablet Take 1 tablet by mouth once daily. - clopidogrel (PLAVIX) 75 mg tablet Take 1 tablet by mouth once daily. - carvedilol (COREG) 25 mg tablet Take 2 tablets by mouth twice daily with meals. - cloNIDine HCl (CATAPRES) 0.1 mg tablet Take 1 tablet by mouth twice daily. - Fenofibrate (LOFIBRA) 160 mg tablet Take 160 mg by mouth once daily. - albuterol HFA (VENTOLIN HFA) 90 mcg/actuation inhaler Inhale 2 Puffs as instructed every 4 hours as needed for Wheezing/Shortness of Breath. Facility-Administered Medications as of 11/26/2022 - perflutren lipid microspheres 1.3 mL in NaCl (PF) 0.9% 10 mL injection (DEFINITY) - sodium chloride 0.9 % (flush) 10 mL (BD POSIFLUSH) Problem List As Of Date 11/21/2022 Noted Resolved SUMMARY [V999.95] 03/08/2011 03/17/2011 Aortic dissection, ascending [I71.00] 03/08/2011 02/13/2016 Marfan syndrome [Q87.40] 03/08/2011 03/18/2011 pulm insuff/ FVO [GQM3774] 03/10/2011 02/13/2016 Fluid overload [E87.70] 03/10/2011 03/17/2011 Stress hyperglycemia [R73.9] 03/10/2011 03/13/2011 Sinus tachycardia [R00.0] 03/10/2011 03/17/2011 Pain [R52] 03/10/2011 11/27/2016 Leukocytosis [D72.829] 03/11/2011 03/13/2011 CAD [I25.10] 03/11/2011 11/27/2016 Thrombocytopenia (HCC) [D69.6] 03/11/2011 03/14/2011 Acute blood loss anemia-postoperative [D62] 03/12/2011 03/16/2011 Depressed state [F32.A] 03/13/2011 03/17/2011 Hyperlipidemia [E78.5] 03/13/2011 02/13/2016 Bleeding nose [R04.0] 03/14/2011 03/16/2011 Leukocytosis [D72.829] 03/16/2011 03/18/2011 Pericardial effusion [I31.39] 03/17/2011 02/13/2016 Marfan syndrome [Q87.40] 08/01/2011 S/P thoracic aortic aneurysm repair [Z98.890, Z*06/28/2013 Angina at rest (HCC) [I20.8] 02/13/2016 11/27/2016 GERD (gastroesophageal reflux disease) [K21.9] 02/13/2016 HTN (hypertension) [I10] 02/13/2016 Marfan's syndrome [Q87.40] S/P mitral valve repair [Z98.890] Normal coronary arteries [PDP9185] 11/27/2016 Mixed hyperlipidemia [E78.2] 11/27/2016 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 Normal [facility] Absolute lymphocyte countOrd ered By: Dhaval Braden on 10-30-2022 Lymphocytes Auto (Unsp spec) [#/Vol] 0.80 10*3/uL 0.83-4.51 [facility] Basophil percentageOrdered B y: Dhaval Braden on 10-30-2022 Basophils/100 WBC (Bld) 0.5 % 0-1 [facility] Bilirubin [Mass/Vol] 1.20 mg/dL 0.20-1.00 [facility] Comment on above: For patients on eltr ombopag therapy, use of Dimension [place] TBIL is not recommended. Chloride [Moles/Vol] 105 mmol/L 98-107 [facility] Cholesterol [Mass/Vol] 213 mg/dL <200 [facility] Comment on above: <200 mg/dL Desirable 200-240 mg/dL Borderline >240 mg/dL High Risk Eosinophils/100 WBC (Bld) 2.9 % 0-5 [facility] Glucose [Mass/Vol] 163 mg/dL 74-106 [facility] Comment on above: Fasting Glucose resu lt greater than or equal to 126 mg/dL suggests DIABETES MELLITUS per A.D.A. criteria. Neutrophils (Bld) [#/Vol] 6.0 10*3/uL 2.0-7.7 [facility] Neutrophils/100 WBC (Bld) 73.6 % 47-70 [facility] Potassium [Moles/Vol] 3.8 mmol/L 3.5-5.1 [facility] Protein [Mass/Vol] 8.4 g/dL 6.4-8.2 [facility] Sodium [Moles/Vol] 137 mmol/L 136-145 [facility] Triglyceride [Mass/Vol] 327 mg/dL <[address] [facility] Comment on above: The drugs N-Acetylcy steine and Metamizole may falsely depress this assay.Serum Triglycerides Reference Interval Normal <150 mg/dL Borderline high 150 - 199 mg/dL High 200 - 499 mg/dL Very High > or = 500 mg/dL WBC (Bld) [#/Vol] 8.2 10*3/uL 4.4-11.0 [facility] Blood erythrocytes count (nu mber/volume)Ordered By: Dhaval Braden on 10-30-2022 RBC (Bld) [#/Vol] 3.91 10*6/uL 4.6-6.2 [facility] Blood hemoglobin measurement (mass/volume)Ordered By: Dhaval Braden on 10-30-2022 Hemoglobin (Bld) [Mass/Vol] 11.2 g/dL 13.0-16.5 [facility] Blood lymphocytes/100 leukoc ytesOrdered By: Dhaval Braden on 10-30-2022 Lymphocytes/100 WBC (Bld) 9.8 % 19-41 [facility] Blood monocytes/100 leukocyt esOrdered By: Dhaval Braden on 10-30-2022 Monocytes/100 WBC (Bld) 11.9 % 0-10 [facility] Blood platelet mean volumeOr dered By: Dhaval Braden on 10-30-2022 Platelet mean volume (Bld) [Entitic vol] 9.3 fL 6.2-12.0 [facility] Determination of erythrocyte mean corpuscular volume (MCV)Ordered By: Dhaval Braden on 10-30-2022 MCV (RBC) [Entitic vol] 90.3 fL 80-94 [facility] Hematocrit Auto (Bld) [Volum e fraction]Ordered By: Dhaval Braden on 10-30-2022 Hematocrit (Bld) [Volume fraction] 35.3 % 40-54 [facility] Laboratory - Chemistry and C hemistry - challengeOrdered By: Dhaval Braden on 10-30-2022 ALP [Catalytic activity/Vol] 84 U/L 45-117 [facility] ALT [Catalytic activity/Vol] 52 U/L 16-61 [facility] CO2 [Moles/Vol] 24.0 mmol/L 21.0-32.0 [facility] Globulin (S) [Mass/Vol] 4.3 g/dL 2.2-4.2 [facility] Urea nitrogen/Creatinine [Mass ratio] 12.7 mg/mg 10-20 [facility] Laboratory - Hematology and Cell countsOrdered By: Dhaval Braden on 10-30-2022 Erythrocyte distribution width (RBC) [Entitic vol] 51.9 fL 35.1-43.9 [facility] Erythrocyte distribution width (RBC) [Ratio] 15.9 % 11.6-14.6 [facility] Immature granulocytes/100 WBC (Bld) 1.300 % 0.0-0.9 [facility] Comment on above: IG% - Immature Granu locytes (promyelocytes, myelocytes and metamyelocytes) > 1% indicates that a LEFT SHIFT is Present. MCH (RBC) [Entitic mass] 28.6 pg 27.0-32.0 [facility] Nucleated RBC/100 WBC (Bld) [Ratio] 0 % 0-5 [facility] MCHC Auto (RBC) [Mass/Vol]Or dered By: Dhaval Braden on 10-30-2022 MCHC (RBC) [Mass/Vol] 31.7 g/dL 32-36 [facility] No Panel InformationOrdered By: Dhaval Braden on 10-30-2022 Estimated GFR (MDRD) Amer 72 mL/min >60 [facility] Comment on above: GFR Calc Estimated GFR (MDRD) Non-Af Amer 59 mL/min >60 [facility] Comment on above: Non- GFR Calc Thyroid Stimulating Hormone (TSH) 3.91 uIU/mL 0.358-3.74 [facility] Platelets bldOrdered By: Shubham Braden on 10-30-2022 Platelets (Bld) [#/Vol] 291 10*3/uL 150-450 [facility] Serum or plasma albumin jorje urement (mass/volume)Ordered By: Dhaval Braden on 10-30-2022 Albumin [Mass/Vol] 4.1 g/dL 3.2-5.0 [facility] Serum or plasma albumin/glob ulin mass ratioOrdered By: Dhaval Braden on 10-30-2022 Albumin/Globulin [Mass ratio] 1.0 {ratio} 0.9-2.4 [facility] Serum or plasma calcium jorje urement (mass/volume)Ordered By: Dhaval Braden on 10-30-2022 Calcium [Mass/Vol] 9.3 mg/dL 8.5-10.1 [facility] Serum or plasma cholesterol in HDL measurement (mass/volume)Ordered By: Dhaval Braden on 10-30-2022 Cholesterol in HDL [Mass/Vol] 21 mg/dL >40 [facility] Comment on above: The drugs N-Acetylcy steine and Metamizole may falsely depress this assay. Reference Range HDL <40 mg/dL Low HDL Cholesterol HDL >or= 60 mg/dL High HDL Cholesterol Serum or plasma cholesterol in VLDL measurement (mass/volume)Ordered By: Dhaval Braden on 10-30-2022 Cholesterol in VLDL [Mass/Vol] 65 mg/dL 5-40 [facility] Serum or plasma creatinine m easurement (mass/volume)Ordered By: Dhaval Braden on 10-30-2022 Creatinine [Mass/Vol] 1.34 mg/dL 0.70-1.30 [facility] Comment on above: The validity of the calculated GFR & GFRAA in patients over 70 years has not been determined. Clinical correlation is essential. Serum or plasma low density lipoprotein (LDL) cholesterol measurement (mass/volume)Ordered By: Dhaval Braden on 10-30-2022 Cholesterol in LDL [Mass/Vol] 127 mg/dL 0-130 [facility] Serum or plasma urea nitroge n measurement (mass/volume)Ordered By: Dhaval Braden on 10-30-2022 Urea nitrogen [Mass/Vol] 17 mg/dL 7-18 [facility] Thin prep Papanicolaou smear with manual screeningOrdered By: Dhaval Braden on 10-30-2022 Thin prep Papanicolaou smear with manual screening 45 U/L 15-37 [facility] Thin prep Papanicolaou smear with manual screening 8 5-15 [facility] Whole blood hemoglobin A1c/t otal hemoglobin ratio (mass fraction)Ordered By: Dhaval Braden on 10-30-2022 HbA1c (Bld) [Mass fraction] 5.3 % 3.8-5.6 [facility] Comment on above: Normal < 5.7 % Predi abetic 5.7 - 6.4 % Diabetic >or= 6.5 % Please note range changes. 36on 10-22-2022 36 S: marisol calling CAC d/t appointment confirmation B: calling to verify time and date A: calling to verify time and date of appointment . Advised riley is 10/23 at 9:30 am R: advised to call back with worsening of symptoms, concern or questions. verbalized understanding. Reason for Disposition ? General information question, no triage required and triager able to answer question Protocols used: Information Only Call - [id number] Absolute lymphocyte countOrd ered By: Dr. Miller on 10-16-2022 Lymphocytes Auto (Unsp spec) [#/Vol] 0.51 10*3/uL 0.83-4.51 [facility] Basophil percentageOrdered B y: Dr. Miller on 10-16-2022 Basophils/100 WBC (Bld) 0.6 % 0-1 [facility] Chloride [Moles/Vol] 107 mmol/L 98-107 [facility] Eosinophils/100 WBC (Bld) 5.5 % 0-5 [facility] Glucose [Mass/Vol] 100 mg/dL 74-106 [facility] Comment on above: Fasting Glucose resu lt from 100 to 125 mg/dL suggests IMPAIRED HOMEOSTASIS per A.D.A. criteria. Neutrophils (Bld) [#/Vol] 3.1 10*3/uL 2.0-7.7 [facility] Neutrophils/100 WBC (Bld) 66.0 % 47-70 [facility] Potassium [Moles/Vol] 3.7 mmol/L 3.5-5.1 [facility] Sodium [Moles/Vol] 137 mmol/L 136-145 [facility] WBC (Bld) [#/Vol] 4.7 10*3/uL 4.4-11.0 [facility] Blood erythrocytes count (nu mber/volume)Ordered By: Dr. Miller on 10-16-2022 RBC (Bld) [#/Vol] 2.77 10*6/uL 4.6-6.2 [facility] Blood hemoglobin measurement (mass/volume)Ordered By: Dr. Miller on 10-16-2022 Hemoglobin (Bld) [Mass/Vol] 7.9 g/dL 13.0-16.5 [facility] Blood lymphocytes/100 leukoc ytesOrdered By: Dr. Miller on 10-16-2022 Lymphocytes/100 WBC (Bld) 10.8 % 19-41 [facility] Blood monocytes/100 leukocyt esOrdered By: Dr. Miller on 10-16-2022 Monocytes/100 WBC (Bld) 15.6 % 0-10 [facility] Blood platelet mean volumeOr dered By: Dr. Miller on 10-16-2022 Platelet mean volume (Bld) [Entitic vol] 9.6 fL 6.2-12.0 [facility] Determination of erythrocyte mean corpuscular volume (MCV)Ordered By: Dr. Miller on 10-16-2022 MCV (RBC) [Entitic vol] 90.3 fL 80-94 [facility] Hematocrit Auto (Bld) [Volum e fraction]Ordered By: Dr. Miller on 10-16-2022 Hematocrit (Bld) [Volume fraction] 25.0 % 40-54 [facility] Laboratory - Chemistry and C hemistry - challengeOrdered By: Dr. Miller on 10-16-2022 CO2 [Moles/Vol] 23.0 mmol/L 21.0-32.0 [facility] Free T4 [Mass/Vol] 0.85 ng/dL 0.76-1.46 [facility] Urea nitrogen/Creatinine [Mass ratio] 18.3 mg/mg 10-20 [facility] Laboratory - Hematology and Cell countsOrdered By: Dr. Miller on 10-16-2022 Anisocytosis Ql (Bld) 1+ [facility] Erythrocyte distribution width (RBC) [Entitic vol] 53.1 fL 35.1-43.9 [facility] Erythrocyte distribution width (RBC) [Ratio] 16.5 % 11.6-14.6 [facility] Immature granulocytes/100 WBC (Bld) 1.500 % 0.0-0.9 [facility] Comment on above: IG% - Immature Granu locytes (promyelocytes, myelocytes and metamyelocytes) > 1% indicates that a LEFT SHIFT is Present. MCH (RBC) [Entitic mass] 28.5 pg 27.0-32.0 [facility] Nucleated RBC/100 WBC (Bld) [Ratio] 0 % 0-5 [facility] MCHC Auto (RBC) [Mass/Vol]Or dered By: Dr. Miller on 10-16-2022 MCHC (RBC) [Mass/Vol] 31.6 g/dL 32-36 [facility] No Panel InformationOrdered By: Dr. Miller on 10-16-2022 Estimated Creatinine Clearance Calc 100.89 ml/min [facility] Estimated GFR (MDRD) Amer 77 mL/min >60 [facility] Comment on above: GFR Calc Estimated GFR (MDRD) Non-Af Amer 63 mL/min >60 [facility] Comment on above: Non- GFR Calc Free Triiodothyronine (T3) pg/dL 1.7 pg/mL 2.18-3.98 [facility] Platelets bldOrdered By: Dr. Miller on 10-16-2022 Platelets (Bld) [#/Vol] 220 10*3/uL 150-450 [facility] Serum or plasma calcium jorje urement (mass/volume)Ordered By: Dr. Miller on 10-16-2022 Calcium [Mass/Vol] 8.2 mg/dL 8.5-10.1 [facility] Serum or plasma creatinine m easurement (mass/volume)Ordered By: Dr. Miller on 10-16-2022 Creatinine [Mass/Vol] 1.26 mg/dL 0.70-1.30 [facility] Comment on above: The validity of the calculated GFR & GFRAA in patients over 70 years has not been determined. Clinical correlation is essential. Serum or plasma urea nitroge n measurement (mass/volume)Ordered By: Dr. Miller on 10-16-2022 Urea nitrogen [Mass/Vol] 23 mg/dL 7-18 [facility] Thin prep Papanicolaou smear with manual screeningOrdered By: Dr. Miller on 10-16-2022 Thin prep Papanicolaou smear with manual screening 7 5-15 [facility] Basophil percentageOrdered B y: Dr. Miller on 10-15-2022 Bilirubin [Mass/Vol] 1.40 mg/dL 0.20-1.00 [facility] Comment on above: For patients on eltr ombopag therapy, use of Dimension [place] TBIL is not recommended. Protein [Mass/Vol] 7.0 g/dL 6.4-8.2 [facility] Iron measurement (mass/mass) Ordered By: Dr. Miller on 10-15-2022 Iron (Unsp spec) [Mass/Mass] 34 ug/dL 65-175 [facility] Laboratory - Chemistry and C hemistry - challengeOrdered By: Dr. Miller on 10-15-2022 ALP [Catalytic activity/Vol] 40 U/L 45-117 [facility] ALT [Catalytic activity/Vol] 47 U/L 16-61 [facility] Cobalamin (Vitamin B12) [Mass/Vol] 449 pg/mL 211-911 [facility] Globulin (S) [Mass/Vol] 3.5 g/dL 2.2-4.2 [facility] No Panel InformationOrdered By: Dr. Miller on 10-15-2022 Thyroid Stimulating Hormone (TSH) 6.33 uIU/mL 0.358-3.74 [facility] Total Iron Binding Capacity 302 ug/dL 250-450 [facility] Serum or plasma albumin jorje urement (mass/volume)Ordered By: Dr. Miller on 10-15-2022 Albumin [Mass/Vol] 3.5 g/dL 3.2-5.0 [facility] Serum or plasma albumin/glob ulin mass ratioOrdered By: Dr. Miller on 10-15-2022 Albumin/Globulin [Mass ratio] 1.0 {ratio} 0.9-2.4 [facility] Serum or plasma ferritin estela surement (mass/volume)Ordered By: Dr. Miller on 10-15-2022 Ferritin [Mass/Vol] 180 ng/mL 26-388 [facility] Serum or plasma folate measu rement (mass/volume)Ordered By: Dr. Miller on 10-15-2022 Folate [Mass/Vol] 3.40 ng/mL 3.1-55.4 [facility] Serum or plasma iron saturat ion measurement (mass fraction)Ordered By: Dr. Miller on 10-15-2022 Iron saturation [Mass fraction] 11.3 % 15.0-55.0 [facility] Thin prep Papanicolaou smear with manual screeningOrdered By: Dr. Miller on 10-15-2022 Thin prep Papanicolaou smear with manual screening 41 U/L 15-37 [facility] Glucose Glucometer (BldC) [M ass/Vol]Ordered By: Dr. Miller on 10-14-2022 Glucose [Mass/Vol] 121 mg/dL 74-106 [facility] Comment on above: MANAGEMENT OF PATIEN T CARE PER NURSING PROTOCOL Laboratory - Chemistry and C hemistry - challengeOrdered By: Dr. Miller on 10-14-2022 Magnesium [Mass/Vol] 2.1 mg/dL 1.6-2.6 [facility] Laboratory - Microbiology an d Antimicrobial susceptibilityOrdered By: Daquan Miller on 10-14-2022 Bacteria identified Cx Nom (Bld) No growth in 5 days. [facility] No Panel InformationOrdered By: Daquan Miller on 10-14-2022 Streptococcus pneumoniae Antigen (M [facility] No Panel InformationOrdered By: Dr. Henson on 10-14-2022 Troponin I High Sensitivity 137 pg/mL 3.0-78.0 [facility] Comment on above: Critical Result(s) C alled at: 03:15:14 10/14/2022 by: CLYDE Stewart RN PCU. Results read back by same. Please Note: New Test Units and Gender Specific Reference Ranges. For more information see Policy Stat Procedure [place] High Sensitivity Troponin (TNIH) and attachments. No Panel InformationOrdered By: Dr. Miller on 10-14-2022 Streptococcus pneumoniae Antigen (M [facility] Urine Legionella pneumophila antigen detectionOrdered By: Daquan Miller on 10-14-2022 L. pneumophila Ag Ql (U) [facility] Urine Legionella pneumophila antigen detectionOrdered By: Dr. Miller on 10-14-2022 L. pneumophila Ag Ql (U) [facility] Assessment of wrist artery p atency prior to arterial punctureOrdered By: Dr. Villalpando on 10-13-2022 Arterial patency Wrist artery --pre arterial puncture Positive [facility] Base excessOrdered By: Dr. Gen garcia on 10-13-2022 Base excess Calc (BldV) [Moles/Vol] 1 mmol/L -2-2 [facility] Basophil percentageOrdered B y: Dr. Villalpando on 10-13-2022 Basophil percentage 0-5 SEEN /hpf 0-5 [facility] Ammonia (P) [Moles/Vol] 24.0 umol/L -32 [facility] Lactate [Moles/Vol] 1.3 mmol/L 0.4-2.0 [facility] Basophil percentage 24.8 mmol/L - [facility] Basophils/100 WBC (Bld) 96 % 95-99 [facility] Bilirubin Test strip Ql (U)O rdered By: Dr. Villalpando on 10-13-2022 Bilirubin Ql (U) 1 mg/dL Negative [facility] Comment on above: COLOR OF URINE MAY A FFECT DIPSTICK RESULTS. CO2 (BldA) [Partial pressure ]Ordered By: Dr. Villalpando on 10-13-2022 CO2 (Bld) [Partial pressure] 34.4 mm[Hg] 35-45 [facility] Ketones Test strip Ql (U)Ord ered By: Dr. Villalpando on 10-13-2022 Ketones Ql (U) 5 mg/dl Negative [facility] Laboratory - Chemistry and C hemistry - challengeOrdered By: Dr. Villalpando on 10-13-2022 Natriuretic peptide B (Bld) [Mass/Vol] 1270.3 pg/mL 0-100 [facility] Mucus LM Ql (Urine sed)Order ed By: Dr. Villalpando on 10-13-2022 Mucus Ql (Urine sed) 0 SEEN /hpf [facility] Nitrite Test strip Ql (U)Ord ered By: Dr. Villalpando on 10-13-2022 Nitrite Ql (U) Negative Negative [facility] No Panel InformationOrdered By: Dr. Villalpando on 10-13-2022 Blood Gas Liter Flow 4.0 /min [facility] Blood Gas Sample Site R Radial [facility] Blood Gas Specimen Type ART [facility] Blood Gas Total CO2 26 mmol/L [facility] Oxygen Delivery Device Cannula [facility] Oxygen (BldA) [Partial press ure]Ordered By: Dr. Villalpando on 10-13-2022 Oxygen (Bld) [Partial pressure] 78 mmHG 75-100 [facility] Protein Test strip Ql (U)Ord ered By: Dr. Villalpando on 10-13-2022 Protein Ql (U) 500 mg/dl Negative [facility] Squamous epithelial cells de tection in urine sediment by light microscopyOrdered By: Dr. Villalpando on 10-13-2022 Epithelial cells.squamous LM Ql (Urine sed) 0 SEEN /hpf 0-5 [facility] Urine blood detectionOrdered By: Dr. Villalpando on 06-12-2023 RBC Ql (U) 150 /ul Negative [facility] RBC Ql (U) 0-5 SEEN /hpf 0-5 [facility] Urine clarityOrdered By: Dr. Villalpando on 10-13-2022 Clarity (U) Clear Clear [facility] Urine color determinationOrd ered By: Dr. Villalpando on 10-13-2022 Color (U) Yellow Yellow [facility] Urine glucose detectionOrder ed By: Dr. Villalpando on 10-13-2022 Glucose Ql (U) Normal mg/dl Normal [facility] Urine leukocyte esterase det ection by dipstickOrdered By: Dr. Villalpando on 10-13-2022 Leukocyte esterase Test strip Ql (U) 25 /ul Negative [facility] Urine pHOrdered By: Dr. Adryan britton on 10-13-2022 pH (U) 6.0 [pH] 5.0 - 8.0 [facility] Urine sediment bacteria coun t by microscopy (number/high power field)Ordered By: Dr. Villalpando on 10-13-2022 Bacteria LM.HPF (Urine sed) [#/Area] 0 /[HPF] None Seen [facility] Urine specific gravity measu rementOrdered By: Dr. Villalpando on 10-13-2022 Specific gravity (U) [Rel density] 1.015 1.002-1.030 [facility] Urobilinogen Auto test strip Ql (U)Ordered By: Dr. Villalpando on 10-13-2022 Urobilinogen Ql (U) 12 mg/dl Normal [facility] pH measurementOrdered By: Dr Jose Elias Villalpando on 10-13-2022 pH (Unsp spec) 7.47 [pH] 7.35-7.45 [facility] Laboratory - Drug toxicology Ordered By: Dr. Alegre on 07-14-2022 Amphetamines Ql (U) Negative <1000 ng/mL [facility] Benzodiazepines Ql (U) Negative < 200 ng/mL [facility] Cannabinoids Screen Ql (U) Negative < 50 ng/mL [facility] Cocaine Ql (U) Negative < 300 ng/mL [facility] Opiates Ql (U) Positive < 300 ng/mL [facility] No Panel InformationOrdered By: Dr. Alegre on 07-14-2022 MDMA (Ecstasy) Screen Negative < 500 ng/mL [facility] Urine Barbiturates Screen Negative < 200 ng/mL [facility] Urine Drug Screen Comment [facility] Comment on above: CONFIRMATORY TESTING FOR ALL POSITIVE URINE DRUG SCREENRESULTS WILL ONLY BE SENT OUT UPON PHYSICIAN ORDER. VISTA Urine Drug Screen methods provide only preliminaryanalytical test results. A more specific alternate chemicalmethod must be used in order to obtain a confirmedanalytical result. Gas chromatography/mass spectrometery(GC/MS) is the preferred confirmatory method. Clinicalconsideration and professional judgement should be appliedto any drug of abuse test result, particularly whenpreliminary positive results are used. URINE TCA TESTING MUST BE ORDERED SEPARATELY. USE TESTMNEMONIC: [facility] Urine Methadone Screen Negative < 300 ng/mL [facility] No Panel InformationOrdered By: Melquiades Alegre on 07-14-2022 Miscellaneous Test See comment [facility] Comment on above: [id number] 6+OXYCODONE-B UND (ng/mL) DRUG RESULT SCREEN CUTOFF____ Amphetamines,Urine Negative ng/mL 1000 Amphetamine test includes Amphetamine and Methamphetamine.Barbiturates Negative ng/mL 200Benzodiazepines Negative ng/mL 200Cannabinoid Negative ng/mL 20Cocaine (Metab) Negative ng/mL 300Opiates Negative ng/mL 300 Opiates test includes Codeine, Morphine, Hydromorphone, Hydrocodone. Oxycodone/Oxymorphone,Urine Negative ng/mL 300 Test includes Oxydodone and Oxymorphone. TESTING PERFORMED AT [facility]. ORIGINAL REPORT ON FILE IN LAB CONTAINS ADDITIONAL TEST SITE INFORMATION. Urine phencyclidine (PCP) de tectionOrdered By: Dr. Alegre on 07-14-2022 Phencyclidine Ql (U) Negative < 25 ng/mL [facility] CBC panel Auto (Bld)on 10-09 Erythrocyte distribution width (RBC) [Ratio] 16.1 % High 11.5 - 15.0 % [facility] Hematocrit (Bld) [Volume fraction] 33.6 % Low 39.0 - 51.0 % [facility] Hemoglobin (Bld) [Mass/Vol] 10.2 g/dL Low 13.0 - 17.0 g/dL [facility] MCH (RBC) [Entitic mass] 28.0 pg 26.0 - 34.0 pg [facility] MCHC (RBC) [Mass/Vol] 30.4 g/dL Low 30.5 - 36.0 g/dL [facility] MCV (RBC) [Entitic vol] 92.3 fL 80.0 - 100.0 fL [facility] Nucleated RBC (Bld) [#/Vol] 10*3/uL <0.01 k/uL [facility] Platelet mean volume (Bld) [Entitic vol] 9.3 fL 9.0 - 12.7 fL [facility] Platelets (Bld) [#/Vol] 308 10*3/uL 150 - 400 k/uL [facility] RBC (Bld) [#/Vol] 3.64 10*6/uL Low 4.20 - 6.0 0 m/uL [facility] WBC (Bld) [#/Vol] 6.17 10*3/uL 3.70 - 11.00 k/uL [facility] Comprehensive metabolic 2000 panelon 10-09-2021 Albumin [Mass/Vol] 4.3 g/dL 3.9 - 4.9 g/dL [facility] ALP [Catalytic activity/Vol] 46 U/L 38 - 113 U/L [facility] ALT [Catalytic activity/Vol] 21 U/L 10 - 54 U/L [facility] Anion gap [Moles/Vol] 15 mmol/L 9 - 18 mmol/L [facility] AST [Catalytic activity/Vol] 25 U/L 14 - 40 U/L [facility] Bilirubin [Mass/Vol] 0.4 mg/dL 0.2 - 1 .3 mg/dL [facility] Calcium [Mass/Vol] 9.6 mg/dL 8.5 - 10. 2 mg/dL [facility] Chloride [Moles/Vol] 104 mmol/L 97 - 10 5 mmol/L [facility] CO2 [Moles/Vol] 24 mmol/L 22 - 30 mmol/L [facility] Creatinine [Mass/Vol] 1.27 mg/dL High 0.73 - 1.22 mg/dL [facility] Estimated Glomerular Filtration Rate 68 mL/min/1.73m >=60 mL/min/1.73 m [facility] Glucose [Mass/Vol] 179 mg/dL High 74 - 99 mg/dL [facility] Potassium [Moles/Vol] 3.5 mmol/L Low 3.7 - 5.1 mmol/L [facility] Protein [Mass/Vol] 6.7 g/dL 6.3 - 8.0 g/dL [facility] Sodium [Moles/Vol] 143 mmol/L 136 - 144 mmol/L [facility] Urea nitrogen [Mass/Vol] 16 mg/dL 9 - 24 mg/dL [facility] LIPID PANEL BASICon 10-10-19 Cholesterol [Mass/Vol] 197 mg/dL <200 mg/dL [facility] Cholesterol in HDL [Mass/Vol] 27 mg/dL Low >39 mg/dL [facility] Cholesterol in LDL [Mass/Vol] 129 mg/dL High <100 mg/dL [facility] Cholesterol in LDL/Cholesterol in HDL [Mass ratio] 4.78 {ratio} High <2.54 [facility] Cholesterol in VLDL [Mass/Vol] 41 mg/dL High <30 mg/dL [facility] Cholesterol non HDL [Mass/Vol] 170 mg/dL High <130 mg/dL [facility] Cholesterol.total/Gladys sterol in HDL [Mass ratio] 7.30 {ratio} High <5.10 [facility] Fasting Time 0 hrs [facility] Triglyceride [Mass/Vol] 206 mg/dL High <150 mg/dL [facility](NEURO/NI)on 09-16-2021 [facility] Absolute lymphocyte counton 08-31-2021 Lymphocytes Auto (Unsp spec) [#/Vol] 0.77 10*3/uL 0.83-4.51 [facility] Work Phone: Basophil percentageon 2021 Basophils/100 WBC (Bld) 0.4 % 0-1 [facility] Work Phone: Chloride [Moles/Vol] 104 mmol/L 98-107 [facility]: Eosinophils/100 WBC (Bld) 3.2 % 0-5 [facility] Work Phone: Glucose [Mass/Vol] 135 mg/dL 74-106 [facility] Work Phone: Comment on above: Fasting Glucose resu lt greater than or equal to 126 mg/dL suggests DIABETES MELLITUS per A.D.A. criteria. Neutrophils (Bld) [#/Vol] 3.6 10*3/uL 2.0-7.7 [facility] Work Phone: Neutrophils/100 WBC (Bld) 67.1 % 47-70 [facility] Work Phone: Potassium [Moles/Vol] 3.7 mmol/L 3.5-5.1 [facility] Work [facility]: Sodium [Moles/Vol] 139 mmol/L 136-145 [facility] Work Phone: WBC (Bld) [#/Vol] 5.4 10*3/uL 4.4-11.0 [facility] Work Phone: Blood erythrocytes count (nu mber/volume)on 08-31-2021 RBC (Bld) [#/Vol] 2.93 10*6/uL 4.6-6.2 [facility] Work Phone: Blood hemoglobin measurement (mass/volume)on 08-31-2021 Hemoglobin (Bld) [Mass/Vol] 8.7 g/dL 13.0-16.5 [facility] Work Phone: Blood lymphocytes/100 leukoc yteson 08-31-2021 Lymphocytes/100 WBC (Bld) 14.3 % 19-41 [facility] Work Phone: Blood monocytes/100 leukocyt eson 08-31-2021 Monocytes/100 WBC (Bld) 13.7 % 0-10 [facility] Work Phone: [phone] Blood platelet mean volumeon 08-31-2021 Platelet mean volume (Bld) [Entitic vol] 8.7 fL 6.2-12.0 [facility] Work Phone: [phone] Determination of erythrocyte mean corpuscular volume (MCV)on 08-31-2021 MCV (RBC) [Entitic vol] 94.9 fL 80-94 [facility] Work Phone: [phone] Hematocrit Auto (Bld) [Volum e fraction]on 08-31-2021 Hematocrit (Bld) [Volume fraction] 27.8 % 40-54 [facility] Work Phone: [phone] Laboratory - Chemistry and C hemistry - challengeon 08-31-2021 CO2 [Moles/Vol] 29.0 mmol/L 21.0-32.0 [facility] Work Phone: [phone] Urea nitrogen/Creatinine [Mass ratio] 14.0 mg/mg 10-20 [facility] Work Phone: [phone] Laboratory - Hematology and Cell countson 08-31-2021 Erythrocyte distribution width (RBC) [Entitic vol] 50.3 fL 35.1-43.9 [facility] Work Phone: [phone] Erythrocyte distribution width (RBC) [Ratio] 14.4 % 11.6-14.6 [facility] Work Phone: [phone] Immature granulocytes/100 WBC (Bld) 1.300 % 0.0-0.9 [facility] Work Phone: [phone] Comment on above: IG% - Immature Granu locytes (promyelocytes, myelocytes and metamyelocytes) > 1% indicates that a LEFT SHIFT is Present. MCH (RBC) [Entitic mass] 29.7 pg 27.0-32.0 [facility] Work Phone: [phone] Nucleated RBC/100 WBC (Bld) [Ratio] 0 % 0-5 [facility] Work Phone: [phone] MCHC Auto (RBC) [Mass/Vol]on 08-31-2021 MCHC (RBC) [Mass/Vol] 31.3 g/dL 32-36 [facility] Work Phone: No Panel Informationon 08-31 Estimated Creatinine Clearance Calc 70.73 ml/min [facility] Work Phone: Estimated GFR (MDRD) Amer 63 mL/min >60 [facility] Work Phone: Comment on above: GFR Calc Estimated GFR (MDRD) Non-Af Amer 52 mL/min >60 [facility] Work Phone: Comment on above: Non- GFR Calc Troponin I High Sensitivity 9 pg/mL 3.0-78.0 [facility] Work Phone: Comment on above: Please Note: New Dayanara t Units and Gender Specific Reference Ranges. For more information see Policy Stat Procedure [place] High Sensitivity Troponin (TNIH) and attachments. Platelets bldon 08-31-2021 Platelets (Bld) [#/Vol] 327 10*3/uL 150-450 [facility] Work Phone: Serum or plasma calcium jorje urement (mass/volume)on 08-31-2021 Calcium [Mass/Vol] 8.6 mg/dL 8.5-10.1 [facility] Work Phone: Serum or plasma creatinine m easurement (mass/volume)on 08-31-2021 Creatinine [Mass/Vol] 1.50 mg/dL 0.70-1.30 [facility] Work Phone: Comment on above: The validity of the calculated GFR & GFRAA in patients over 70 years has not been determined. Clinical correlation is essential. Serum or plasma urea nitroge n measurement (mass/volume)on 08-31-2021 Urea nitrogen [Mass/Vol] 21 mg/dL 7-18 [facility] Work Phone: Thin prep Papanicolaou smear with manual screeningon 08-31-2021 Thin prep Papanicolaou smear with manual screening 6 5-15 [facility] Work Phone: No Panel Informationon 08-07 Troponin I High Sensitivity 26 pg/mL 3.0-78.0 [facility] Work Phone: Comment on above: Please Note: New Dayan[place] t Units and Gender Specific Reference Ranges. For more information see Policy Stat Procedure [place] High Sensitivity Troponin (TNIH) and attachments. Absolute lymphocyte counton 08-06-2021 Lymphocytes Auto (Unsp spec) [#/Vol] 1.03 10*3/uL 0.83-4.51 [facility] Work Phone: Basophil percentageon 2021 Basophils/100 WBC (Bld) 0.9 % 0-1 [facility] Work Phone: Bilirubin [Mass/Vol] 0.60 mg/dL 0.20-1.00 [facility] Work Phone: Comment on above: For patients on eltr ombopag therapy, use of Dimension [place] TBIL is not recommended. Chloride [Moles/Vol] 104 mmol/L 98-107 [facility] Work Phone: Eosinophils/100 WBC (Bld) 2.1 % 0-5 [facility] Work Phone: Glucose [Mass/Vol] 175 mg/dL 74-106 [facility] Work Phone: Comment on above: Fasting Glucose resu lt greater than or equal to 126 mg/dL suggests DIABETES MELLITUS per A.D.A. criteria. Neutrophils (Bld) [#/Vol] 3.5 10*3/uL 2.0-7.7 [facility] Work Phone: Neutrophils/100 WBC (Bld) 60.0 % 47-70 [facility] Work Phone: Potassium [Moles/Vol] 3.6 mmol/L 3.5-5.1 [facility] Work Phone: Protein [Mass/Vol] 7.2 g/dL 6.4-8.2 [facility] Work Phone: Sodium [Moles/Vol] 137 mmol/L 136-145 [facility] Work Phone: WBC (Bld) [#/Vol] 5.8 10*3/uL 4.4-11.0 [facility] Work Phone: Blood erythrocytes count (nu mber/volume)on 08-06-2021 RBC (Bld) [#/Vol] 4.12 10*6/uL 4.6-6.2 [facility] Work Phone: Blood hemoglobin measurement (mass/volume)on 08-06-2021 Hemoglobin (Bld) [Mass/Vol] 12.8 g/dL 13.0-16.5 [facility] Work Phone: Blood lymphocytes/100 leukoc yteson 08-06-2021 Lymphocytes/100 WBC (Bld) 17.8 % 19-41 [facility] Work Phone: Blood monocytes/100 leukocyt eson 08-06-2021 Monocytes/100 WBC (Bld) 15.9 % 0-10 [facility] Work Phone: Blood platelet mean volumeon 08-06-2021 Platelet mean volume (Bld) [Entitic vol] 9.4 fL 6.2-12.0 [facility] Work Phone: Determination of erythrocyte mean corpuscular volume (MCV)on 08-06-2021 MCV (RBC) [Entitic vol] 94.2 fL 80-94 [facility] Work Phone: Direct bilirubinon Bilirubin.direct [Mass/Vol] 0.31 mg/dL 0.00-0.30 [facility] Work Phone: Hematocrit Auto (Bld) [Volum e fraction]on 08-06-2021 Hematocrit (Bld) [Volume fraction] 38.8 % 40-54 [facility] Work Phone: INR in Blood by Coagulation assayon 08-06-2021 INR Coag (Bld) [Relative time] 1.0 {INR} [facility] Work Phone: Laboratory - Chemistry and C hemistry - challengeon 08-06-2021 ALP [Catalytic activity/Vol] 88 U/L 45-117 [facility] Work Phone: ALT [Catalytic activity/Vol] 116 U/L 16-61 [facility] Work Phone: CO2 [Moles/Vol] 27.0 mmol/L 21.0-32.0 [facility] Work Phone: Globulin (S) [Mass/Vol] 3.6 g/dL 2.2-4.2 [facility] Work Phone: Lipase [Catalytic activity/Vol] 243 U/L 73-393 [facility] Work Phone: Magnesium [Mass/Vol] 2.1 mg/dL 1.6-2.6 [facility] Work Phone: Urea nitrogen/Creatinine [Mass ratio] 9.4 mg/mg 10-20 [facility] Work Phone: Laboratory - Coagulationon 0 08-06-2021 aPTT Coag (Bld) [Time] 26.0 s 24.1-36.2 [facility] Work Phone: PT Coag (PPP) [Time] 12.4 s 11.7-14.9 [facility] Work Phone: Laboratory - Hematology and Cell countson 08-06-2021 Erythrocyte distribution width (RBC) [Entitic vol] 49.0 fL 35.1-43.9 [facility] Work Phone: Erythrocyte distribution width (RBC) [Ratio] 14.4 % 11.6-14.6 [facility] Work Phone: Immature granulocytes/100 WBC (Bld) 3.300 % 0.0-0.9 [facility] Work Phone: Comment on above: IG% - Immature Granu locytes (promyelocytes, myelocytes and metamyelocytes) > 1% indicates that a LEFT SHIFT is Present. MCH (RBC) [Entitic mass] 31.1 pg 27.0-32.0 [facility] Work Phone: Nucleated RBC/100 WBC (Bld) [Ratio] 0 % 0-5 [facility] Work Phone: MCHC Auto (RBC) [Mass/Vol]on 08-06-2021 MCHC (RBC) [Mass/Vol] 33.0 g/dL 32-36 [facility] Work Phone: No Panel Informationon 08-06 D-Dimer Quantitative (PE/DVT) 4.86 FEU/ug/m 0.27-0.49 [facility] Work Phone: Comment on above: CRITICAL VALUE VERIF IED. CALLED TO CIERA [id number] Alexis Spain.RESULTS READ BACK BY SAME . D-Dimer ELEVATED (>0.49): Additional studies and clinicalassessments are indicated to conclude diagnosis of:Deep Vein Thrombosis (DVT) or Pulmonary Embolism (PE) Estimated Creatinine Clearance Calc 76.32 ml/min [facility] Work Phone: Estimated GFR (MDRD) Amer 69 mL/min >60 [facility] Work Phone: Comment on above: GFR Calc Estimated GFR (MDRD) Non-Af Amer 57 mL/min >60 [facility] Work Phone: Comment on above: Non- GFR Calc Thyroid Stimulating Hormone (TSH) 7.71 uIU/mL 0.358-3.74 [facility] Work Phone: [phone] Platelets bldon 08-06-2021 Platelets (Bld) [#/Vol] 274 10*3/uL 150-450 [facility] Work Phone: [phone] Serum or plasma albumin jorje urement (mass/volume)on 08-06-2021 Albumin [Mass/Vol] 3.6 g/dL 3.2-5.0 [facility] Work Phone: [phone] Serum or plasma calcium jorje urement (mass/volume)on 08-06-2021 Calcium [Mass/Vol] 8.7 mg/dL 8.5-10.1 [facility] Work Phone: [phone] Serum or plasma creatinine m easurement (mass/volume)on 08-06-2021 Creatinine [Mass/Vol] 1.39 mg/dL 0.70-1.30 [facility] Work Phone: Comment on above: The validity of the calculated GFR & GFRAA in patients over 70 years has not been determined. Clinical correlation is essential. Serum or plasma urea nitroge n measurement (mass/volume)on 08-06-2021 Urea nitrogen [Mass/Vol] 13 mg/dL 7-18 [facility] Work Phone: Thin prep Papanicolaou smear with manual screeningon 08-06-2021 Thin prep Papanicolaou smear with manual screening 97 U/L 15-37 [facility] Work Phone: Thin prep Papanicolaou smear with manual screening 6 5-15 [facility] Work Phone: Basophil percentageon 2021 Creatinine [Mass/Vol] 1.8 mg/dL 0.70-1.30 [facility] Work Phone: Laboratory - Chemistry and C hemistry - challengeon 07-17-2021 GFR/1.73 sq M.predicted among non-blacks MDRD (S/P/Bld) [Vol rate/Area] 44.0000 mL/min/{1.73_m2} >60 [facility] Work Phone: AO MAIN OR Anesthesia Recor don 11-28-2016 AO MAIN OR Anesthesia Record Normal [facility]) AO MAIN OR Intraop Recordon 11-28-2016 AO MAIN OR Intraop Record Normal [facility] ([place]) Depart Summaryon 11-28-2016 Depart Summary Normal [facility] ([place]) [place] Operative Noteon [place] Operative Note Normal A [facility]) Outpatient Patient Summaryon 11-28-2016 Outpatient Patient Summary Normal [facility] ([place] XR FLUORO 1-2 HRS TECH TIMEo n 11-28-2016 XR FLUORO 1-2 HRS TECH TIME ORIGINAL Images acquired, not reported on this accession number. Normal [facility] ([place] XR WRIST TWO VIEWS LEFTon XR WRIST TWO VIEWS LEFT ORIGINALFluorosc opy, 11/28/2016 3:10 PM INDICATION: Internal fixation COMPARISON: No FLUOROSCOPY TIME: 23 seconds FINDINGS: 2. Radiographic images are provided showing internal fixation of the distal radius. IMPRESSION: Fluoroscopy provided to the orthopedic service. Interpreted By: Alexis Elias MDPreliminary Report By: Alexis Elias MDElectronically Signed By: Alexis Elias MD Dictated Date: 11/28/2016 7:04:23 PM Prelim Date: 11/28/2016 7:04:23 PM Sign Date: 11/28/2016 7:05:07 PM Normal [facility] ([place]) .Auto Diffon 11-26-2016 Basophils Auto #/vol (Bld) 0.00 10 3/mcL Normal 0.00-0.19 [facility] ([place]) Comment on above: Performed By: #### C BC, ADIFF, ANEU, CMP, GFR ####[address] [place], [place] [address] Basophils/100 WBC Auto (Bld) 0.7 % Normal 0.0-2.5 [facility] ([place] Comment on above: Performed By: #### C BC, ADIFF, ANEU, CMP, GFR ####[address] [place], [place] [address] Eosinophils 0.20 10 3/mcL Normal 0.00-0.40 [facility] ([place] Comment on above: Performed By: #### C BC, ADIFF, ANEU, CMP, GFR ####Monique [address] [place], [place] [address] Eosinophils/100 leukocytes 3.2 % Normal 0.0-7.0 [facility] ([place] Comment on above: Performed By: #### C BC, ADIFF, ANEU, CMP, GFR ####[address] [place], [place] [address] Lymphocytes 1.60 10 3/mcL Normal 0.77-3.85 [facility] ([place] Comment on above: Performed By: #### C BC, ADIFF, ANEU, CMP, GFR ####[address] [place], [place] [address] Lymphocytes/100 leukocytes 32.6 % Normal 10.0-50.0 [facility] ([place] Comment on above: Performed By: #### C BC, ADIFF, ANEU, CMP, GFR ####[address]ique [address] [place], [place] [address] Monocytes 0.50 10 3/mcL Normal 0.15-1.00 [facility] ([place] Comment on above: Performed By: #### C BC, ADIFF, ANEU, CMP, GFR ####[address] [place], [place] [address] Monocytes/100 leukocytes 10.6 % Normal 1.7-13.0 [facility] ([place] Comment on above: Performed By: #### C BC, ADIFF, ANEU, CMP, GFR ####[address] [place], [place] [address] Neutrophils/100 WBC Auto (Bld) 52.9 % Normal 37.0-80.0 [facility] ([place] Comment on above: Performed By: #### C BC, ADIFF, ANEU, CMP, GFR ####[address] [place], [place] [address] .NEUABSon 11-26-2016 Neutrophils 2.70 10 3/mcL Low 2.85-6.16 [facility] ([place] Comment on above: Performed By: #### C BC, ADIFF, ANEU, CMP, GFR ####[address] [place], [place] [address] CBCon 11-26-2016 Erythrocyte distribution width Auto Ratio (RBC) 13.8 % Normal 11.5-14.5 [facility] ([place] Comment on above: Performed By: #### C BC, ADIFF, ANEU, CMP, GFR ####[address] [place], [place] [address] Erythrocytes (RBC) 4.93 10 6/mcL Normal 4.04-6.13 [facility] ([place]) Comment on above: Performed By: #### C BC, ADIFF, ANEU, CMP, GFR ####[address] [place], [place] [address] Hematocrit (HCT) 41.9 % Low 42.0-52.0 [facility] ([place] Comment on above: Performed By: #### C BC, ADIFF, ANEU, CMP, GFR ####[address]ique [address] [place], [place] [address] Hemoglobin mass conc (Bld) 14.3 G/dL Normal 14.0-18.0 [facility] ([place] Comment on above: Performed By: #### C BC, ADIFF, ANEU, CMP, GFR ####[address] [place], [place] [address] MCH 29.0 pg Normal 27.0-31.2 [facility] ([place] Comment on above: Performed By: #### C BC, ADIFF, ANEU, CMP, GFR ####[address] [place], [place] [address] MCHC mass conc (RBC) 34.0 G/dL Normal 31.8-35.4 [facility] ([place] Comment on above: Performed By: #### C BC, ADIFF, ANEU, CMP, GFR ####[address] [place], [place] [address] MCV 85.0 fL Normal 80.0-94.0 [facility] ([place] Comment on above: Performed By: #### C BC, ADIFF, ANEU, CMP, GFR ####[address] [place], [place] [address] Platelet mean volume (PMV) 7.8 fL Normal 7.4-10.4 [facility] ([place] Comment on above: Performed By: #### C BC, ADIFF, ANEU, CMP, GFR ####[address] [place], [place] [address] Platelets 315 10 3/mcL Normal 130-400 [facility] ([place] Comment on above: Performed By: #### C BC, ADIFF, ANEU, CMP, GFR ####[address] [place], [place] [address] WBC (Leukocytes) 5.00 10 3/mcL Normal 4.60-10.80 [facility] ([place]) Comment on above: Performed By: #### C BC, ADIFF, ANEU, CMP, GFR ####[address] [place], [place] [address] CMPon 11-26-2016 Alanine aminotransferase (ALT) 32 ZZ Normal 10-35 [facility] ([place] Comment on above: Performed By: #### C BC, ADIFF, ANEU, CMP, GFR ####[address] [place], [place] [address] Albumin 4.8 G/dL Normal 3.5-5.0 [facility] ([place] Comment on above: Performed By: #### C BC, ADIFF, ANEU, CMP, GFR ####[address] [place], [place] [address] Albumin/Globulin Ratio 1.9 {ratio} Normal 1.1-2.5 [facility] ([place] Comment on above: Performed By: #### C BC, ADIFF, ANEU, CMP, GFR ####[address] [place], [place] [address] Alk Phos 114 ZZ Normal 40-135 [facility] ([place] Comment on above: Performed By: #### C BC, ADIFF, ANEU, CMP, GFR ####[address] [place], [place] [address] Aspartate aminotransferase (AST) 21 ZZ Normal 10-40 [facility] ([place] Comment on above: Performed By: #### C BC, ADIFF, ANEU, CMP, GFR ####[address] [place], [place] [address] Bili Total 0.4 mg/dL Normal 0.2-1.0 [facility] ([place] Comment on above: Performed By: #### C BC, ADIFF, ANEU, CMP, GFR ####[address] [place], [place] [address] BUN/Creatinine Ratio 15 ratio Normal 7-27 [facility] ([place] Comment on above: Performed By: #### C BC, ADIFF, ANEU, CMP, GFR ####[address] [place], [place] [address] Calcium 9.3 mg/dL Normal 8.4-10.2 [facility] ([place] Comment on above: Performed By: #### C BC, ADIFF, ANEU, CMP, GFR ####[address] [place], [place] [address] Chloride 99 mmol/L Normal 98-107 [facility] ([place] Comment on above: Performed By: #### C BC, ADIFF, ANEU, CMP, GFR ####[address] [place], [place] [address] CO2 27 mmol/L Normal 22-29 [facility] ([place] Comment on above: Performed By: #### C BC, ADIFF, ANEU, CMP, GFR ####[address] [place], [place] [address] Creatinine 1.1 mg/dL Normal 0.6-1.2 [facility] ([place] Comment on above: Performed By: #### C BC, ADIFF, ANEU, CMP, GFR ####[address] [place], [place] [address] Electrolyte Balance 10.0 mEq/L Normal [facility] ([place]) Comment on above: Performed By: #### C BC, ADIFF, ANEU, CMP, GFR ####[address] [place], [place] [address] Globulin 2.5 G/dL Normal [facility] ([place] Comment on above: Performed By: #### C BC, ADIFF, ANEU, CMP, GFR ####[address] [place], [place] [address] Glucose mass conc 115 mg/dL High 70-105 [facility] ([place] Comment on above: Performed By: #### C BC, ADIFF, ANEU, CMP, GFR ####Monique [address] [place], [place] [address] Potassium molar conc 3.5 mmol/L Normal 3.5-5.1 [facility] ([place] Comment on above: Performed By: #### C BC, ADIFF, ANEU, CMP, GFR ####[address] [place], [place] [address] Protein 7.3 G/dL Normal 6.0-8.3 [facility] ([place] Comment on above: Performed By: #### C BC, ADIFF, ANEU, CMP, GFR ####[address] [place], [place] [address] Sodium 136 mmol/L Normal 136-146 [facility] ([place] Comment on above: Performed By: #### C BC, ADIFF, ANEU, CMP, GFR ####[address] [place], [place] [address] Urea nitrogen 16.0 mg/dL Normal 7.0-18.0 [facility] ([place] Comment on above: Performed By: #### C BC, ADIFF, ANEU, CMP, GFR ####[address]ique [address] [place], [place] [address] GFRon 11-26-2016 eGFR (non-black) mL/min/{1.73_m2} Normal Count includes the [facility] ([place]) Comment on above: Result Comment: GFR Population mean for , Non- Americans Ages 20-29 = 116 mL/min/1.73 sq.m. Ages 30-39 = 107 mL/min/1.73 sq.m. Ages 40-49 = 99 mL/min/1.73 sq.m. Ages 50-59 = 93 mL/min/1.73 sq.m. Ages 60-69 = 85 mL/min/1.73 sq.m. Ages 70+ = 75 mL/min/1.73 sq.m.Chronic Kidney Disease: Less than 60 mL/min/1.73 square metersEnd Stage Renal Disease: Less than 15 mL/min/1.73 square meters Performed By: #### C BC, ADIFF, ANEU, CMP, GFR ####[address]ique [address] [place], [place] [address] eGFR (non-black) 90 ml/min/1.73sqm Normal [facility] ([place] Comment on above: Result Comment: GFR Population mean for , Non- Americans Ages 20-29 = 116 mL/min/1.73 sq.m. Ages 30-39 = 107 mL/min/1.73 sq.m. Ages 40-49 = 99 mL/min/1.73 sq.m. Ages 50-59 = 93 mL/min/1.73 sq.m. Ages 60-69 = 85 mL/min/1.73 sq.m. Ages 70+ = 75 mL/min/1.73 sq.m.Chronic Kidney Disease: Less than 60 mL/min/1.73 square metersEnd Stage Renal Disease: Less than 15 mL/min/1.73 square meters Performed By: #### C BC, ADIFF, ANEU, CMP, GFR ####[address]ique [address] [place], [place] [address] Vital Signs Date Time Vital Sign Value Performing Clinician Facility 07-08-2024 13:40-0500 Diastolic blood pressure 70 mm[Hg] Dr. Dhaval Braden MD [facility] 07-08-2024 13:40-0500 Heart rate 74 /min Dr. Dhaval Braden MD [facility] 07-08-2024 13:40-0500 Respiratory rate 18 /min Dr. Dhaval Braden MD [facility] 07-08-2024 13:40-0500 Systolic blood pressure 131 mm[Hg] Dr. Dhaval Braden MD [facility] 07-08-2024 09:40-0500 Body height 193.[address] Dhaval Braden MD [facility] 07-08-2024 09:40-0500 Body temperature 97.6 [degF] Dr. Dhaval Braden MD [facility] 07-08-2024 09:40-0500 SaO2% (BldA) [Mass fraction] 96 % Dr. Dhaval Braden MD [facility] 06-10-2024 12:27-0500 Body temperature 97.9 [degF] Dr. Dhaval Braden MD [facility] 06-10-2024 12:27-0500 Diastolic blood pressure 51 mm[Hg] [facility] [facility] 06-10-2024 12:27-0500 Heart rate 59 /min Dr. Dhaval Braden MD [facility] 06-10-2024 12:27-0500 Respiratory rate 16 /min Dr. Dhaval Braden MD [facility] 06-10-2024 12:27-0500 SaO2% (BldA) [Mass fraction] 92 % Dr. Dhaval Braden MD [facility] 06-10-2024 12:27-0500 Systolic blood pressure 117 mm[Hg] Dr. Dhaval Braden MD [facility] 06-10-2024 12:15-0500 Inhaled oxygen flow rate 2 L/min Dr. Dhaval Braden MD [facility] 06-10-2024 09:14-0500 Body mass index (BMI) [Ratio] 34.6 kg/m2 Dr. Dhaval Braden MD [facility] 06-10-2024 09:14-0500 Body weight [address] Dhaval Braden MD [facility] 07-31-2023 17:20-0400 Body temperature 98.7 [degF] Dr. Dhaval Braden Work Phone: [facility] 07-31-2023 17:20-0400 Diastolic blood pressure 88 mm[Hg] Dr. Dhaval Braden Work Phone: [facility] 07-31-2023 17:20-0400 Heart rate 70 /min Dr. Dhaval Braden Work Phone: [facility] 07-31-2023 17:20-0400 Respiratory rate 18 /min Dr. Dhaval Braden Work Phone: [facility] 07-31-2023 17:20-0400 SaO2% (BldA) [Mass fraction] 94 % Dr. Dhaval Braden Work Phone: [facility] 07-31-2023 17:20-0400 Systolic blood pressure 162 mm[Hg] Dr. Dhaval Braden Work Phone: [facility] 07-31-2023 12:44-0400 Body height 193.[address] Dhaval Braden Work Phone: [facility] 07-31-2023 12:44-0400 Body weight 114.[address] Dhaval Braden Work Phone: [facility] 07-30-2023 16:04-0400 Body mass index (BMI) [Ratio] 30.8 kg/m2 Dr. Dhaval Braden Work Phone: [facility] 07-30-2023 15:00-0400 Body temperature 97.6 [degF] Dr. Dhaval Braden Work Phone: [facility] 07-30-2023 15:00-0400 Diastolic blood pressure 75 mm[Hg] Dr. Dhaval Braden Work Phone: [facility] 07-30-2023 15:00-0400 Heart rate 87 /min Dr. Dhaval Braden Work Phone: [facility] 07-30-2023 15:00-0400 Respiratory rate 17 /min Dr. Dhaval Braden Work Phone: [facility] 07-30-2023 15:00-0400 SaO2% (BldA) [Mass fraction] 97 % Dr. Dhaval Braden Work Phone: [facility] 07-30-2023 15:00-0400 Systolic blood pressure 116 mm[Hg] Dr. Dhaval Braden Work Phone: [facility] 07-30-2023 13:04-0400 Body height 193.[address] Dhaval Braden Work Phone: [facility] 07-30-2023 13:04-0400 Body mass index (BMI) [Ratio] 30.7 kg/m2 Dr. Dhaval Braden Work Phone: [facility] 07-30-2023 13:04-0400 Body weight 114.[address] Dhaval Braden Work Phone: [facility] 10-17-2022 15:09-0400 Diastolic blood pressure 62 mm[Hg] Dr. Dhaval Braden Work Phone: [facility] 10-17-2022 15:09-0400 Heart rate 59 /min Dr. Dhaval Braden Work Phone: [facility] 10-17-2022 15:09-0400 Systolic blood pressure 121 mm[Hg] Dr. Dhaval Braden Work Phone: [facility] 10-17-2022 15:05-0400 Body temperature 97.7 [degF] Dr. Dhaval Braden Work Phone: [facility] 10-17-2022 15:05-0400 Inhaled oxygen flow rate 2 L/min Dr. Dhaval Braden Work Phone: [facility] 10-17-2022 15:05-0400 Respiratory rate 18 /min Dr. Dhaval Braden Work Phone: [facility] 10-17-2022 15:05-0400 SaO2% (BldA) [Mass fraction] 97 % Dr. Dhaval Braden Work Phone: [facility] 10-15-2022 21:40-0400 Inhaled oxygen concentration 5 % Dr. Dhaval Braden Work Phone: [facility] 10-14-2022 15:43-0400 Body height 213.[address] Dhaval Braden Work Phone: [facility] 10-14-2022 15:43-0400 Body weight 118.[address] Dhaval Braden Work Phone: [facility] 10-14-2022 01:07-0400 Body mass index (BMI) [Ratio] 26 kg/m2 Dr. Dhaval Braden Work Phone: [facility] 10-09-2021 15:29-0400 Body height 193 cm Carmella Lira MD Work Phone: [facility] 10-09-2021 15:29-0400 Body weight 123.47 kg Carmella Lira MD Work Phone: [facility] 10-09-2021 15:29-0400 Diastolic blood pressure 64 mm[Hg] Carmella Lira MD Work Phone: [facility] 10-09-2021 15:29-0400 Heart rate 64 /min Carmella Lira MD Work Phone: [facility] 10-09-2021 15:29-0400 SaO2% (BldA) [Mass fraction] 98 % Carmella Lira MD Work Phone: [facility] 10-09-2021 15:29-0400 Systolic blood pressure 121 mm[Hg] Carmella Lira MD Work Phone: [facility] 10-07-2021 15:12-0400 Body height 193 cm Yomi Thomas MD Work Phone: [facility] 10-07-2021 15:12-0400 Body temperature 98.1 [degF] Yomi Thomas MD Work Phone: [facility] 10-07-2021 15:12-0400 Body weight 122.4 kg Yomi Thomas MD Work Phone: [facility] 10-07-2021 15:12-0400 Diastolic blood pressure 58 mm[Hg] Yomi Thomas MD Work Phone: [facility] 10-07-2021 15:12-0400 Heart rate 67 /min Yomi Thomas MD Work Phone: [facility] 10-07-2021 15:12-0400 Respiratory rate 17 /min Yomi Thomas MD Work Phone: [facility] 10-07-2021 15:12-0400 SaO2% (BldA) [Mass fraction] 95 % Yomi Thomas MD Work Phone: [facility] 10-07-2021 15:12-0400 Systolic blood pressure 118 mm[Hg] Yomi Thomas MD Work Phone: [facility] 08-31-2021 22:13-0400 Diastolic blood pressure 74 mm[Hg] Dr. Dhaval Braden Work Phone: [facility] Work Phone: 08-31-2021 22:13-0400 Heart rate 73 /min Dr. Dhaval Braden Work Phone: [facility] Work Phone: 08-31-2021 22:13-0400 Respiratory rate 15 /min Dr. Dhaval Braden Work Phone: [facility] Work Phone: 08-31-2021 22:13-0400 SaO2% (BldA) [Mass fraction] 95 % Dr. Dhaval Braden Work Phone: [facility] Work Phone: 08-31-2021 22:13-0400 Systolic blood pressure 128 mm[Hg] Dr. Dhaval Braden Work Phone: [facility] Work Phone: 08-31-2021 19:53-0400 Body height 193.[address] Dhaval Braedn Work Phone: [facility] Work Phone: 08-31-2021 19:53-0400 Body mass index (BMI) [Ratio] 33.5 kg/m2 Dr. Dhaval Braden Work Phone: [facility] Work Phone: 08-31-2021 19:53-0400 Body temperature 96.8 [degF] Dr. Dhaval Braden Work Phone: [facility] Work Phone: 08-31-2021 19:53-0400 Body weight 124.[address] Dhaval Braden Work Phone: [facility] Work Phone: 08-07-2021 00:57-0400 Diastolic blood pressure 89 mm[Hg] Dr. Dhaval Braden Work Phone: [facility] Work Phone: 08-07-2021 00:57-0400 Heart rate 80 /min Dr. Dhaval Braden Work Phone: [facility] Work Phone: 08-07-2021 00:57-0400 SaO2% (BldA) [Mass fraction] 96 % Dr. Dhaval Braden Work Phone: [facility] Work Phone: 08-07-2021 00:57-0400 Systolic blood pressure 145 mm[Hg] Dr. Dhaval Braden Work Phone: [facility] Work Phone: 08-07-2021 00:32-0400 Respiratory rate 17 /min Dr. Dhaval Braden Work Phone: [facility] Work Phone: 08-06-2021 21:46-0400 Body height 193.[address] Dhaval Braden Work Phone: [facility] Work Phone: 08-06-2021 21:46-0400 Body mass index (BMI) [Ratio] 35.4 kg/m2 Dr. Dhaval Braden Work Phone: [facility] Work Phone: 08-06-2021 21:46-0400 Body temperature 98.2 [degF] Dr. Dhaval Braden Work Phone: [facility] Work Phone: 08-06-2021 21:46-0400 Body weight [address] Dhaval Braden Work Phone: [facility] Work Phone: 07-25-2021 14:38-0400 Body temperature 97.4 [degF] Dr. Dhaval Braden Work Phone: [facility] Work Phone: 07-25-2021 14:38-0400 Diastolic blood pressure 62 mm[Hg] Dr. Dhaval Braden Work Phone: [facility] Work Phone: 07-25-2021 14:38-0400 Heart rate 91 /min Dr. Dhaval Braden Work Phone: [facility] Work Phone: 07-25-2021 14:38-0400 Respiratory rate 15 /min Dr. Dhaval Braden Work Phone: [facility] Work Phone: 07-25-2021 14:38-0400 SaO2% (BldA) [Mass fraction] 95 % Dr. Dhaval Braden Work Phone: [facility] Work Phone: 07-25-2021 14:38-0400 Systolic blood pressure 122 mm[Hg] Dr. Dhaval Braden Work Phone: [facility] Work Phone: Encounters Encounter Date Encounter Type Care Provider Facility Start: 07-08-2024 End: 07-08-2024 Emergency department patient visit Dhaval Masongregg Facility:[facility] Start: 06-21-2024 Encounter for preprocedural cardiovascular examination Nicolette BASS [facility] Start: 06-10-2024 End: 06-10-2024 Admission to same day surgery center Dr. Melquiades Alegre MD -[facility] Start: 06-10-2024 End: 06-10-2024 ambulatory Dhaval Grey Facility:[facility] Start: 06-07-2024 ambulatory Dhaval Masongregg Facilit y:[facility] Start: 06-07-2024 Non-patient / Non-visit [facility]. Fernández [facility] Start: 06-07-2024 End: 06-07-2024 Patient encounter procedure Nicolette BASS -Cardiovascular Services Work Phone: Start: 06-07-2024 End: 06-07-2024 ambulatory Nicolette BASS Facility:[facility] Start: 12-22-2023 End: 12-22-2023 ambulatory Melquiades Alegre Facility:[facility] Start: 09-17-2023 End: 09-18-2023 Emergency department patient visit Dhaval Masongregg Facility:[facility] Start: 07-30-2023 Non-patient / Non-visit Dr. Julius Braden Work Phone: [facility] Work Phone: Start: 07-30-2023 End: 07-31-2023 ambulatory Daquan Miller Facility:[facility] Start: 07-30-2023 End: 07-31-2023 Evaluation and management of inpatient Dr. Dhaval Braden Work Phone: [facility]-Medical Surgical 3 Work Phone: Start: 07-30-2023 End: 07-31-[address] Dhaval Braden Work Phone: [facility] Work Phone: Start: 11-21-2022 Telephone encounter Soto gooden MD Work Phone: Hematology/Oncology Comment on above: New Patient Start: 10-30-2022 End: 10-30-[address] Dhaval Braden Work Phone: [facility] Work Phone: Start: 10-30-2022 End: 10-30-[address] Dhaval Braden Work Phone: [facility]-Laboratory Work Phone: Start: 10-22-2022 ambulatory Eleonora Andres C linical Communication Start: 10-22-2022 Patient encounter procedure Eleonora Ndiaye RN [facility] Clinical Communication Start: 10-17-2022 Non-patient / Non-visit Dr. Julius Braden Work Phone: [facility] Start: 10-16-2022 Non-patient / Non-visit Dr. Julius Braden Work Phone: [facility] Start: 10-15-2022 Non-patient / Non-visit Dr. Julius Braden Work Phone: [facility] Start: 10-14-2022 Non-patient / Non-visit Dr. Julius Braden Work Phone: [facility] Start: 10-14-2022 End: 10-17-2022 Evaluation and management of inpatient Dr. Dhaval Braden Work Phone: [facility]-Progressive Care Unit Start: 10-14-2022 Non-patient / Non-visit Dr. Julius Braden Work Phone: [facility] Start: 07-14-2022 End: 07-14-2022 ambulatory [facility] Work Phone: Start: 07-14-2022 End: 07-14-2022 Patient encounter procedure [facility]-Laboratory Start: 02-19-2022 End: 02-19-2022 ambulatory [facility] Work Phone: Start: 02-19-2022 End: 02-19-2022 Patient encounter procedure [facility]-Radiology, [facility] Start: 02-07-2022 Orders Only Carmella Lira MD Work Phone: Cardiology Comment on above: Marfan syndrome (Kae paul Dx) Start: 10-09-2021 End: 10-09-2021 Patient encounter procedure Carmella Lira MD Work Phone: Cardiology Comment on above: Marfan syndrome (Kae paul Dx); Marfan's syndrome; S/P mitral valve repair; Dissection of thoracoabdominal aorta (HCC); Disorder of artery or arteriole (HCC); Adverse effect of treatment, sequela; Obesity, Class I, BMI 30-34.9 Start: 10-07-2021 End: 10-07-2021 ambulatory Pulm Fct Lab Main 7 Pulmonary Medicine Comment on above: Spirometry Start: 10-07-2021 End: 10-07-2021 Patient encounter procedure Pulm [facility]ct Lab Main 7 [facility] Comment on above: Restrictive lung dis ease secondary to obesity (Primary Dx); Acute respiratory failure with hypoxia and hypercapnia (HCC) Start: 10-03-2021 Telephone encounter Carmella Lira MD Work Phone: Cardiology Comment on above: Future Appointment Start: 09-16-2021 End: 09-16-2021 Patient encounter procedure Delvin Greer MD Work Phone: Neurology Comment on above: Meralgia paresthetic a, bilateral lower limbs (Primary Dx); Chronic midline low back pain without sciatica Start: 09-16-2021 End: 09-16-2021 ambulatory Emg 1000) Work Phone: Neurology Comment on above: EMG Start: 09-16-2021 End: 09-16-2021 Patient encounter procedure Emg 1 Neur Main (Max Weight: 1000) Work Phone: [facility] Start: 08-31-2021 End: 08-31-2021 Emergency department patient visit Dr. Dhaval Braden Work Phone: [facility]-Emergency Department Start: 08-27-2021 ambulatory Dorothy Donaldson APRN.[employer] Work Phone: Pulmonary Medicine Start: 08-21-2021 Non-patient / Non-visit Dr. Julius Braden Work Phone: [facility] Start: 08-20-2021 Non-patient / Non-visit Dr. Julius Braden Work Phone: [facility] Start: 08-20-2021 Orders Only Gabriel tang MD Work Phone: Pulmonary Medicine Comment on above: Shortness of breath (Primary Dx) Start: 08-17-2021 Orders Only Fabiola Granados MD Work Phone: Neuro Hosp Comment on above: Sensory neuropathy ( Primary Dx) Start: 08-13-2021 Non-patient / Non-visit Dr. Julius Braden Work Phone: [facility] Start: 08-08-2021 Non-patient / Non-visit Dr. Julius Braden Work Phone: [facility] Start: 08-07-2021 ambulatory Annalee Pan APRN.[employer] Work Phone: Critical Care Start: 08-06-2021 Non-patient / Non-visit Dr. Julius Braden Work Phone: [facility] Start: 08-06-2021 End: 08-07-2021 Emergency department patient visit Dr. Dhaval Braden Work Phone: [facility]-Emergency Department Start: 08-06-2021 Non-patient / Non-visit Dr. Julius Braden Work Phone: [facility] Start: 07-25-2021 End: 07-25-[address] Dhaval Braden Work Phone: [facility] Start: 07-17-2021 End: 07-17-2021 Patient encounter procedure [facility]-Cat Scan, [facility] Start: 04-13-2021 Patient encounter procedure [facility]-MRI - [facility] Start: 11-28-2016 End: 11-28-2016 Ambulatory AKIN ESTES Facility: Start: 11-26-2016 End: 11-27-2016 Ambulatory AKIN ESTES Facility:[facility] Procedures Date Procedure Procedure Detail Performing Clinician Start: 07-08-2024 Plain X-ray of tibia and fibula Dr. Dhaval Braden MD Start: 07-08-2024 X-ray of ankle, thre e or more views Dr. Dhaval Braden MD Start: 07-08-2024 X-ray of lumbar spin e, two or three views Dr. Dhaval Braden MD Start: 07-08-2024 CT of head without contrast Dr. Dhaval Braden MD Start: 06-10-2024 Fluoroscopic guidance Maranda Braden MD Start: 06-10-2024 X-ray of spine, sing le view Dr. Dhaval Braden MD Start: 10-14-2022 Bacteria identified in Blood by Culture Dr. Dhaval Braden Work Phone: Start: 10-14-2022 Legionella pneumophi la antigen assay Dr. Dhaval Braden Work Phone: Start: 10-14-2022 Streptococcus pneumo niae Antigen (M Dr. Dhaval Braden Work Phone: Start: 10-13-2022 CT angiography of ch est with contrast Dr. Dhaval Braden Work Phone: Start: 10-13-2022 Plain chest X-ray Dr. Cody Braden Work Phone: Start: 02-19-2022 X-ray of cervical spine Start: 10-07-2021 Spmtry w/vc expirato ry north w/wo mxml vol vntj Gabriel Cowart MD Work Phone: Start: 09-16-2021 Nerve conduction manasa dies 5-6 studies Fabiola Granados MD Work Phone: Start: 08-31-2021 CT of thorax, abdome n and pelvis with contrast Dr. Dhaval Braden Work Phone: Start: 08-06-2021 CT of thorax, abdome n and pelvis with contrast Dr. Dhaval Braden Work Phone: Start: 07-17-2021 CT of abdominal aort a with contrast Start: 04-13-2021 MRI of lumbar spine Start: 05-11-2012 Adult depression screening assessment Annalee Pan APRN.[employer] Work Phone: Start: 03-08-2011 History of coronary artery bypass grafting H/O coronary artery bypass surgery Comment on above: CABG x 1- SVG-RCA Plan of Treatment Date Care Activity Detail Author Start: 10-09-2026 LIPID SCREEN LIPID SCREEN [facility] Start: 10-09-2024 DIABETES SCREEN DIABETES SCREEN [facility] Start: 08-21-2024 DIABETES SCREEN DIABETES SCREEN [facility] Start: 08-20-2024 DIABETES SCREEN DIABETES SCREEN [facility] Start: 08-17-2024 DIABETES SCREEN DIABETES SCREEN [facility] Start: 08-07-2024 DIABETES SCREEN DIABETES SCREEN [facility] Start: 07-08-2024 [facility] Start: 07-08-2024 [facility] Start: 06-10-2024 Anes integ musc & nrv head neck&posterior trunk ANESTH HEAD/NECK/PTRUNK [facility] Start: 06-10-2024 Insj/rplcmt spi npgr dir/induxive coupling INS/RPLC SPI NPG/RCVR POCKET [facility] Start: 06-10-2024 Patient discharge [facility] Start: 07-31-2023 Patient discharge [facility] Start: 07-30-2023 Ambulation without limitation [facility] Start: 07-30-2023 Assessment of risk of venous thromboembolism [facility] Start: 07-30-2023 Care regimes management [facility] Start: 07-30-2023 Insertion of catheter into peripheral vein [facility] Start: 07-30-2023 Notification of physician [facility] Start: 07-30-2023 Patient referral to [facility] Start: 07-30-2023 Providing care according to standard [facility] Start: 07-30-2023 Following clinical pathway protocol [facility] Start: 07-30-2023 End: 07-30-2023 [facility] Start: 07-30-2023 Verification routine [facility] Start: 07-30-2023 Admission procedure [facility] Start: 07-30-2023 Hospital admission, emergency, from emergency room, medical nature [facility] Start: 07-30-2023 [facility] Start: 07-30-2023 Gas panel - Venous blood [facility] Start: 07-30-2023 Patient referral to [facility] Start: 05-21-2023 LIPID SCREEN LIPID SCREEN [facility] Start: 01-02-2023 Influenza vaccination [facility] Start: 10-17-2022 Referral to service [facility] Start: 10-17-2022 Patient discharge [facility] Start: 10-15-2022 Referral to occupational therapist [facility] Start: 10-15-2022 Referral to service [facility] Start: 10-14-2022 End: 10-14-2022 Blood culture [facility] Start: 10-14-2022 [facility] Start: 10-14-2022 Physiotherapy of chest [facility] Start: 10-14-2022 Ambulation without limitation [facility] Start: 10-14-2022 Assessment of risk of venous thromboembolism [facility] Start: 10-14-2022 Insertion of catheter into peripheral vein [facility] Start: 10-14-2022 Measuring intake and output [facility] Start: 10-14-2022 Oxygen therapy [facility] Start: 10-14-2022 Providing care according to standard [facility] Start: 10-14-2022 Referral to glass installer [facility] Start: 10-14-2022 [facility] Start: 10-14-2022 Following clinical pathway protocol [facility] Start: 10-14-2022 Admission procedure [facility] Start: 10-14-2022 Patient referral to dietitian [facility] Start: 10-09-2022 BP CONTROLLED (<130/80) BP CONTROLLED (<130/80) [facility] Start: 10-07-2022 BP CONTROLLED (<130/80) BP CONTROLLED (<130/80) [facility] Start: 07-14-2022 Procedure [facility] Start: 05-04-2022 DEPRESSION ASSESSMENT DEPRESSION ASSESSMENT [facility] Start: 02-07-2022 End: 04-09-2022 CBC panel - Blood by Automated count CBC Lab Routine Marfan syndrome Expected: 02/07/2022, Expires: 04/09/2022 [facility] Work Phone: Comment on above: Expected: 02/07/2022, Expires: 2 Start: 02-07-2022 End: 04-09-2022 Comprehensive metabolic 2000 panel - Serum or Plasma COMP METABOLIC PANEL Lab Routine Marfan syndrome Expected: 02/07/2022, Expires: 04/09/2022 [facility] Work Phone: Comment on above: Expected: 02/07/2022, Expires: 2 Start: 01-02-2022 Influenza vaccination INFLUENZA (#1) [facility] Start: 09-19-2021 End: 09-19-2022 SPIROMETRY SITTING AND SUPINE SPIROMETRY SITTING AND SUPINE PFT Routine Shortness of breath Expected: 09/19/2021 (Approximate), Expires: 09/19/2022 [facility] Work Phone: Comment on above: Expected: 09/19/2021 (Approximate), Expi res: 09/19/2022 Start: 05-04-2021 DEPRESSION ASSESSMENT DEPRESSION ASSESSMENT [facility] Start: 11-17-2020 COVID-19 VACCINE (3 - Booster for Moderna series) COVID-19 VACCINE (3 - Booster for Moderna series) [facility] Start: 08-15-2020 COVID-19 VACCINE (3 - Booster for Moderna series) COVID-19 VACCINE (3 - Booster for Moderna series) [facility] Start: 08-15-2020 COVID-19 VACCINE (3 - Moderna series) COVID-19 VACCINE (3 - Moderna series) [facility] Start: 2018 SHINGRIX VACCINE (1 of 2) SHINGRIX VACCINE (1 of 2) [facility] Start: 2018 Zoster Vaccines (1 of 2) Zoster Vaccines (1 of 2) [facility] Start: 2013 COLOGUARD (FIT-DNA) COLOGUARD (FIT-DNA) [facility] Start: 2013 Colonoscopy COLONOSCOPY [facility] Start: 2013 COLORECTAL CANCER SCREENING COLORECTAL CANCER SCREENING [facility] Start: [address] COLONOGRAPHY [facility] Start: 2013 FECAL OCCULT BLOOD FECAL OCCULT BLOOD [facility] Start: 2013 SIGMOIDOSCOPY SIGMOIDOSCOPY [facility] Start: 05-11-2013 Adult depression screening assessment DEPRESSION SCREENING [facility] Start: 11-17-1987 DTaP/Tdap/Td Vaccines (1 - Tdap) DTaP/Tdap/Td Vaccines (1 - Tdap) [facility] Start: 11-17-1987 Urine microalbumin profile DTAP,TDAP,TD (1 - Tdap) [facility] Start: 1986 ANNUAL PCP TEAM CHRONIC DISEASE VISIT ANNUAL PCP TEAM CHRONIC DISEASE VISIT [facility] Start: 1986 BP CONTROLLED (<130/80) BP CONTROLLED (<130/80) [facility] Start: 1986 HEPATITIS C SCREENING HEPATITIS C SCREENING [facility] Start: 1986 Hepatitis C screening Hepatitis C Screening [facility] Start: 1986 HIV SCREENING HIV SCREENING [facility] Start: 1980 Depression Screening Depression Screening [facility] Start: 1973 COVID-19 VACCINE (1) COVID-19 VACCINE (1) [facility] Start: 1969 MMR Vaccines (1 of 1 - Standard series) MMR Vaccines (1 of 1 - Standard series) [facility] Start: 05-19-1969 COVID-19 Vaccine (#1) COVID-19 Vaccine (#1) [facility] Start: 1968 HEPATITIS B (1 of 3 - 3-dose series) HEPATITIS B (1 of 3 - 3-dose series) [facility] Start: 1968 Hepatitis B Vaccines (1 of 3 - 3-dose series) Hepatitis B Vaccines (1 of 3 - 3-dose series) [facility] Start: 1968 HIV screening HIV Screening [facility] Start: 1968 Lipid panel Lipid Panel [facility] Start: 1968 Screening for malignant neoplasm of colon [facility] Bacteria identified in Blood by Culture Blood Culture [facility] End: 11-08-2022 CTA CHEST/ABD/PEL (GATED) W IVCON CTA CHEST/ABD/PEL (GATED) W IVCON Radiology Routine Marfan syndrome Marfan's syndrome S/P mitral valve repair 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) Adverse effect of treatment, sequela 1 Occurrences starting 10/09/2021 until 11/08/2022 [facility] Work Phone: Comment on above: 1 Occurrences starting 10/09/2021 until 11/08/2022 End: 11-08-2022 CTA HEAD W IVCON CTA HEAD W IVCON Radiology Routine Marfan syndrome Marfan's syndrome S/P mitral valve repair 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) Adverse effect of treatment, sequela 1 Occurrences starting 10/09/2021 until 11/08/2022 [facility] Work Phone: Comment on above: 1 Occurrences starting 10/09/2021 until 11/08/2022 End: 11-08-2022 CTA NECK W IVCON CTA NECK W IVCON Radiology Routine Marfan syndrome Marfan's syndrome S/P mitral valve repair 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) Adverse effect of treatment, sequela 1 Occurrences starting 10/09/2021 until 11/08/2022 [facility] Work Phone: Comment on above: 1 Occurrences starting 10/09/2021 until 11/08/2022 End: 10-09-2022 ECG COMPLETE ECG COMPLETE ECG Routine Marfan syndrome Marfan's syndrome S/P mitral valve repair 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) Adverse effect of treatment, sequela 1 Occurrences starting 10/09/2021 until 10/09/2022 [facility] Work Phone: Comment on above: 1 Occurrences starting 10/09/2021 until 10/09/2022 End: 10-09-2022 Echocardiography ECHO Cardiology Routine Marfan syndrome Marfan's syndrome S/P mitral valve repair 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) Adverse effect of treatment, sequela 1 Occurrences starting 10/09/2021 until 10/09/2022 [facility] Work Phone: Comment on above: 1 Occurrences starting 10/09/2021 until 10/09/2022 End: 08-17-2022 EMG(NEURO/NI) EMG(NEURO/NI) EMG Routine Sensory neuropathy 1 Occurrences starting 08/17/2021 until 08/17/2022 [facility] Work Phone: Comment on above: 1 Occurrences starting 08/17/2021 until 08/17/2022 Microscopic urinalysis [facility] End: 11-06-2022 MIPS/MEPS MIPS/MEPS PFT Routine Acute respiratory failure with hypoxia and hypercapnia ([facility]) Restrictive lung disease secondary to obesity 1 Occurrences starting 10/07/2021 until 11/06/2022 [facility] Work Phone: Comment on above: 1 Occurrences starting 10/07/2021 until 11/06/2022 Organism count, microscopic method [facility] Patient Education [facility] Work Phone: Patient referral [facility] Work Phone: SPIROMETRY SITTING A ND SUPINE SPIROMETRY SITTING AND SUPINE PFT Routine Shortness of breath 10/07/2021 1:51 PM EDT [facility] Work Phone: End: 11-06-2022 SPIROMETRY SITTING AND SUPINE SPIROMETRY SITTING AND SUPINE PFT Routine Acute respiratory failure with hypoxia and hypercapnia (HCC) Restrictive lung disease secondary to obesity 1 Occurrences starting 10/07/2021 until 11/06/2022 [facility] Work Phone: Comment on above: 1 Occurrences starting 10/07/2021 until 11/06/2022 Urine microscopy: epithelial cells [facility] Urine microscopy: re d cells [facility] White blood cell count [facility] c [facility] c [facility] Immunizations Immunization Date Immunization Notes Care Provider Vivi [email or web address] 07-31-2023 influenza, injectabl e, quadrivalent, preservative free Dr. Dhaval Braden Work Phone: [facility] 03-25-2021 influenza, injectabl e, quadrivalent, preservative free Dr. Dhaval Braden Work Phone: [facility] 03-25-2021 influenza, seasonal, injectable [facility] 03-25-2021 influenza, seasonal, injectable, preservative free Fabiola Granados MD Work Phone: [facility] 03-25-2021 influenza virus vaccine, unspecified formulation Eleonora Ndiaye RN [facility] Payers Date Payer Category Payer Self-pay [id number] 2023 Unknown [id number] 2018 Private Health Insurance [employer] [id number] 2018-Present [phone] [address] [place] [address] PPO [id number] 2018 Private Health Insurance [id number] 2016 Medicare [id number] 2016 Unknown [id number] 2013 Medicare [id number] 2013 Medicare MEDICARE MEDICAR E A AND B [id number] 2013-Present [phone] [address] [address] [place] [address] Medicare [id number] 2013 Medicare MEDICARE MEDICAR E A AND B [id number] 2013-Present [phone] [place] [address] Medicare [id number] Medicaid [id number] Medicare [id number] Private Health Insurance SELF PAY INSURAN [id number] Private Health Insurance [id number] Unknown [id number] Unknown [id number] Unknown [id number] Unknown [id number] Unknown [id number] Unknown [id number] Unknown [id number] Unknown [id number] Unknown [id number] Unknown [id number] Social History Date Type Detail Facility Start: 03-20-2021 End: 07-30-2023 Tobacco smoking status NHIS Unknown if ever smoked [facility] Start: 06-16-2016 None [facility] Start: 05-20-2018 Spouse/ Signif icant Other [facility] Start: 06-16-2016 Non-smoker [facility] Start: 1970 Sex Assigned At Male [facility] Start: 03-08-2011 End: 07-08-2024 Tobacco smoking status NHIS Never smoked tobacco [facility] Start: 03-08-2011 Tobacco use and exposure Smokeless tobacco non-user [facility] Start: 08-07-2021 End: 10-09-2021 Alcohol intake Current non-drinker of alcohol (finding) [facility] Start: 1970 Sex Assigned At Not on file [facility] Start: 07-27-2021 End: 10-09-2021 Exposure to SARS-CoV-2 (event) Not sure [facility] Start: 08-14-2021 End: 08-24-2021 Exposure to SARS-CoV-2 (event) Unable to assess [facility] Start: 03-08-2011 End: 10-09-2021 Tobacco use and exposure Former smokeless tobacco user [facility] End: 02-01-2021 History of tobacco use Chews Tobacco [facility] Gender identity Not on file [facility] Start: 07-08-2024 Sex Male (finding) [facility] Medical Equipment Procedure Code Equipment Code Equipment Original Text Equipment Identifier Dates Insertion, infusion pump, for analgesia ASCENDA Catheter ([id number], [id number]) FDA Start: 06-10-2024 Insertion, infusion pump, for analgesia SYNCHROMED III Infusion Pump ([id number], [id number]) FDA Start: 06-10-2024 Graft Cv 30cm 8m m Str Tube Wvn - [id number] Start: 03-08-2011 Comment on above: Description: Used fo r subclavian cannulation Bon Wier Ptfe 1.2 Cm X 10 Cm - [id number] Start: 03-08-2011 Comment on above: Description: Bon Wier fo r pledgets Bon Wier Cv 6x6in Thk1.65mm Ptfe - [id number] Start: 03-08-2011 Comment on above: Description: Bon Wier fo r pledgets Omp-Le-C-Kind Implant - [id number] Start: 03-08-2011 Comment on above: Description: Patrick snow Thoracic Endoprosthesis Fsw-Nz-P-Kind Implant - [id number] Start: 03-08-2011 Comment on above: Description: Gelweav e woven vascular prosthesis Wgo-It-E-Kind Implant - [id number] Start: 03-08-2011 Comment on above: Description: gelweav e [id number], GELWEAVE Patch Cv 23b81uv Bov Pericard - [id number] Start: 03-08-2011 Comment on above: Description: for sut ure line reinforcement Pen Needle, Diabetic (Unifine Pentips Plus) 31 gauge x 5/16" needle Start: 04-15-2024 Pen Needle, Diabetic (Unifine Pentips Plus) 31 gauge x 5/16" needle Start: 09-02-2023 End: 04-15-2024 Pen Needle, Diabetic (Unifine Pentips Plus) 31 gauge x 5/16" needle Start: 04-15-2024 End: 04-15-2024 Goals Date Patient Goal Desired Activity /State Functional Status Date Assessment Result Facility 07-31-2023 Functional status Ambulates;Bathroom Priv ilege [facility] Work Phone: 10-17-2022 Functional status Bedrest [facility] Work Phone: Mental Status Date Assessment Result Facility 06-10-2024 Cognitive function Voice/Name [facility] Work Phone: 07-31-2023 Cognitive function Voice/Name [facility] Work Phone: 07-30-2023 Cognitive function Level Of Cons ciousness Awake;Alert;Appropriate;Follow s Commands [facility] Work Phone: 10-17-2022 Cognitive function Voice/Name [facility] Work Phone: 08-06-2021 Cognitive function Level Of Cons ciousness Awake;Alert;Appropriate [facility] Work Phone: Clinical Notes 03-08-2011 to 07-08-2024 Note Date & Type Note Facility 07-08-2024 Discharge summary [facility] 07-08-2024 Discharge summary Note Date/Time July 08, 2024 3:20pm [facility] Medical Records Department [address] [place] [address] Emergency Department Summary 07/08/24 MR#: [id number] Acct: [id number] Name: LEIDY DC Rep #:[id number] : 1970 53 From: Blanca Coe PCP: Dr. Dhaval Braden MD Status:RE G ER Location: ED HPI History of Present Illness Chief Complaint: Lower Extremity Injury Informant: patient Narrative Narrative: Patient is a 53-year-old male with history of Marfan syndrome, aortic dissection, dissection of the vertebral artery, hypertension and chronic back pain with recent placement of what sounds like intrathecal pain pump (with Dr. Alegre) 1 month ago presenting with weakness, fall and left ankle pain and swelling. Patient states for the past few days his legs have been feeling "weird" and he has been shuffling more. He states he has not felt right for a few days. Last night he woke up around 2 AM and was stumbling. He fell down and maybe twisted his leg when he was falling. He was able to get himself back up and went to the bathroom. After that he went to the refrigerator and squatted down to look for some food. He then fell and felt a large pop in his left ankle and had immediate pain. He said pain and swelling since. He states he did hit his head. Denies any loss of conscious. Does not take any blood thinners but is on a daily aspirin. Notes he has had worsening of his back pain. He cannot get a hold of his pain management doctor because he is out of town. Denies any bowel or bladder incontinence. Denies any saddle anesthesia. No other complaints or concerns reported at this time. Does have chronic pain is also on Xtampza 27. [facility] Medical History Wears glasses Broken teeth Thyroid disease Insulin dependent diabetes mellitus Dietary restriction Leg cramps History of pain when walking History of edema History of echocardiogram Cardiology follow-up encounter Pain Bipolar disorder Anxiety Hypothyroidism Non-smoker BiPAP (biphasic positive airway pressure) dependence Restrictive lung disease Anemia Depression History of aortic dissection Marfan syndrome CHF (congestive heart failure) Infection of external auditory canal Abnormal stress test Uncontrolled hypertension Acute maxillary sinusitis, unspecified Nonobstructive atherosclerosis of coronary artery Hyperkalemia GERD (gastroesophageal reflux disease) Dissection of vertebral artery Hyperlipidemia Dissecting aneurysm of ascending aorta Essential (primary) hypertension (05/20/18) Marfans syndrome Home Medications ?Medication ?Instructions ?Recorded ?Last Taken ?Type acetaminophen 500 mg tablet 1,000 mg PO DAILY PRN Pain 05/19/18 07/07/24 History ibuprofen 200 mg tablet 400 - 600 mg PO DAILY PRN Pa in 05/19/18 07/07/24 History handicap placcard #1 ea 03/15/21 Unknown Rx albuterol sulfate 90 mcg/actuation 2 puff inhalation Q 4H PRN 10/03/21 Unknown Rx aerosol inhaler shortness of breath or wheez ing #8.5 grams lorazepam 1 mg tablet 1 mg PO DAILY PRN anxiety 06/09/24 History levothyroxine 25 mcg tablet 25 mcg PO DAILY #90 tabs 0 01/16/23 07/08/24 Rx zolpidem 10 mg tablet 10 mg PO QHS PRN sleep #30 t abs 04/30/23 07/07/24 Rx clonidine HCl 0.1 mg tablet 0.1 mg PO BID blood pressu re #180 09/25/23 07/08/24 Rx tabs carvedilol 25 mg tablet 25 mg PO BID #180 tabs 11/0307/08/24 Rx rabeprazole 20 mg tablet,delayed 20 mg PO DAILY stomac h #90 tabs 02/12/24 07/08/24 Rx release (AcipHex) nifedipine 60 mg tablet,extended 60 mg PO DAILY BP #90 tabs 03/21/24 07/08/24 Rx release 24 hr pen needle, diabetic 31 gauge x #100 ea 04/15/24 Unkno wn Rx 09/16" (Unifine Pentips Plus) insulin glargine 100 unit/mL (3 25 unit subcut BID 07/2607/08/24 History mL) subcutaneous pen, sensor insulin lispro 100 unit/mL 10 - 15 unit subcut TIDCM 0 06/06/24 07/08/24 History subcutaneous pen (Humalog KwikPen (U-100) Insulin) lidocaine 5 % topical patch 1 patch topical DAILY PRN pain 06/06/24 Unknown History quetiapine 200 mg tablet 400 mg PO BID 06/06/2407/07 History aspirin 81 mg tablet,delayed 81 mg PO DAILY 07/08/24 0 07/08/24 History release (Adult Aspirin Regimen) dextroamphetamine-amphetamine 30 1 tab PO BID PRN ADHD 07/08/24 Unknown History mg tablet fluoxetine 20 mg capsule 20 mg PO QHS 07/08/24 History oxycodone 5 mg tablet 5 - 10 mg (1 - 2 x 5 mg) PO Q8H 07/08/24 Unknown Rx PRN pain 3 days #15 tabs Allergy/AdvReac Type Severity Reaction Status Date / Time Quinolones Allergy Unknown PT UNSURE Verified 07/08/24 09:40 OF REACTION ciprofloxacin (From Cipro) Allergy Rash Verified 07/08/24 09:40 ciprofloxacin HCl (From Allergy Rash Verified 07/08/24 09:40 Cipro) sulfamethoxazole (From Allergy Rash Verified 07/08/24 09:40 Bactrim) tramadol Allergy Itching Verified 07/08/24 09:40 trimethoprim (From Bactrim) Allergy Rash Verified 07/08/24 09:40 Family History Son Marfans syndrome Daughter Marfans syndrome Father Hypertension Grandfather Heart disease Myocardial infarction CVA (cerebral vascular accident) Grandmother Heart disease Surgical History Hx of hammer toe correction History of open reduction and internal fixation (ORIF) procedure (2016) History of left heart catheterization (12/14/20) History of tonsillectomy History of mitral valve repair (03/08/11) H/O coronary artery bypass surgery (03/08/11) Hx of ascending aorta replacement (03/08/11) Social History household members: spouse Smoking Status: Never smoker alcohol intake: current alcohol intake frequency: a few times a month substance use type: does not use ROS ROS ED Constitutional Constitutional ED: Denies chills or fever(s) Eyes Eyes: Denies change in vision Cardiovascular Cardiovascular: Denies chest pain Respiratory/Chest Respiratory/Chest: Denies cough or dyspnea Gastrointestinal Gastrointestinal: Denies abdominal pain, nausea or vomiting Genitourinary Genitourinary ED: Reports other; Denies dysuria Musculoskeletal Musculoskeletal: Reports back pain and other Details: Left ankle pain and swelling Integumentary Denies Abrasions or rash Neurologic Neurologic: Reports weakness; Denies headache(s) or paresthesias Hematologic/Lymphatic Hematologic/Lymphatic: Denies easy bleeding or easy bruising EXAM Physical Exam Const Vital Signs: 07/08/24 09:40 07/08/24 13:40 Temperature 97.6 F L Temperature Source Temporal Pulse Rate 88 74 Respiratory Rate 17 18 Blood Pressure 168/72 H 131/70 H Blood Pressure Mean 104 90 Pulse Ox 96 Oxygen Delivery Method Room Air Positive well nourished and well developed General Appearance ED: well developed and NAD HEENT Reports moist mucous membranes HEENT Narrative: Poor dentition. No cephalhematoma atraumatic Neck full ROM Thyroid: Negative for tender Chest Wall inspection of chest normal and palpation of chest normal Resp normal respiratory effort and clear to auscultation bilaterally Cardio regular rate and regular rhythm Cardio Narrative: 2+ radial DP pulses GI non-tender and non-distended Palpation: soft Extremity Extremity Narrative: Swelling and tenderness over the left ankle lateral malleolus. Mild tenderness palpation over the left fibular head. Normal Godoy test. Neuro CN's II-XII intact bilaterally, moves all extremities and no sensory deficits noted Sensorium / Orientation: alert Motor Exam: strength 5/5 throughout; Negative for general weakness Psych mental status grossly normal Skin no wounds Rashes: no rashes Trauma: Negative for abrasion MDM MDM MDM Narrative Medical decision making narrative: Patient evaluated for difficulty ambulating secondary to injury to his left ankle associated pain. Does have chronic pain in his had more shuffling gait for the past week. Does follow with pain management, Dr. Alegre. Patient given morphine initially in the emergency room for pain control. He does have tenderness and swelling to his left ankle. Differential clues ankle sprain, ankle fracture. Lower suspicion for Achilles tendon injury given he hasnormal Godoy test. He does not have any red flag symptoms in his history forcauda equina syndrome however given his more shuffling gait and increased pain we will also obtain metabolic workup. Patient thinks he might of hit his head so will obtain CT of the brain to rule out intracranial process. Ankle x-ray viewed by myself as well as radiology does not show any acute fracture. There is evidence of old trauma of the medial malleolus and chronic appearing ossicle at the base of the lateral malleolus. It is possible there could be a tiny acute avulsion fracture. This does correlate with his presentation. Patient is placed in a walking boot. We given a walker. Is given 10 of oxycodone for further pain control. Initially does have pain with ambulation but does better with pain medication, walker and boot. Given outpatient podiatry follow-up. Did speak with the pain management office about sending him home with a short course of Percocet for further pain control. They are agreeable with this. Patient be discharged home. Given return precautions. Counseled that if he hastoo much pain and cannot ambulate or take care of himself at home he might require admissions for pain control/PT OT evaluation. Lab Data Attestation: I reviewed the patient's lab results. Labs: Laboratory Results - last 24 hr 07/08/24 07/08/24 11:10 12:55 WBC 8.5 RBC 4.33 L Hgb 12.6 L Hct 37.1 L MCV 85.7 MCH 29.1 MCHC 34.0 RDW Std Deviation 40.8 RDW Coeff of Lalita 13.1 Plt Count 226 MPV 9.3 Immature Gran % (Auto) 0.800 Neut % (Auto) 75.7 H Lymph % (Auto) 11.9 L [place] % (Auto) 8.9 Eos % (Auto) 2.1 Baso % (Auto) 0.6 Absolute Neuts (auto) 6.4 Absolute Lymphs (auto) 1.01 Nucleated RBC % 0 Sodium 138 Potassium 3.7 Chloride 100 Carbon Dioxide 24.6 Anion Gap 14 BUN 17 Creatinine 1.27 H Est GFR (MDRD) Non-Af 67 BUN/Creatinine Ratio 13.7 Glucose 128 H Calcium 9.1 Urine Color Yellow Urine Clarity Clear Urine pH 6.0 Ur Specific [place] 1.020 Urine Protein 100 H Urine Glucose (UA) Normal Urine Ketones Negative Urine Occult Blood Negative Urine Nitrite Negative Urine Bilirubin Negative Urine Urobilinogen Normal Ur Leukocyte Esterase Negative Urine RBC 0-5 SEEN Urine WBC 0-5 SEEN Ur Squamous Epith Cells 0 SEEN Urine Bacteria 0 SEEN Hyaline Casts 5-10 SEEN Fine Granular Casts 0-5 SEEN WBC Casts 0-5 SEEN Urine Mucus 0 SEEN Radiography Diagnostic Testing: Clinical Impression(s) from Imaging Studies Brain CT 07/08/24 11:15 IMPRESSION: 1. No acute intracranial abnormalities are demonstrated. Reading Location: [place] [address] Ankle X-Ray 07/08/24 11:30 IMPRESSION: Ossicles at the tip of the medial malleolus most likely related to old remote trauma. Tiny radiopaque density at the tip of the lateral malleolus may represent old trauma. Can not exclude a tiny acute avulsion fracture. Marked soft tissue swelling. Reading Location: [place] [address] Lumbar Spine X-Ray 07/08/24 11:30 IMPRESSION: Mild spondylosis. Degenerative disc disease at L1 through L3. Reading Location: [facility]- Tibia/Fibula X-Ray 07/08/24 11:30 IMPRESSION: No acute osseous abnormalities. Soft tissue swelling at the ankle. Reading Location: [place] [address] Rhythm Strip Rhythm Strip: Sinus Rhythm Rate: 63 Ectopy: None EKG Initial EKG: Attestation: I personally reviewed and interpreted this EKG as follows: Interpretation: Sinus Rhythm Comments: Normal sinus rhythm at a rate of 63 bpm Prescribing block with a MA interval 230 Normal axis LVH with QRS widening No change made to prior EKG Prior EKG tracings: available for review Prior: Unchanged Discharge Plan Triage Chief Complaint: Lower Extremity Injury ED Provider: Blanca Julio Dx/Rx/DC Orders Clinical Impression: Left ankle sprain Instructions: ED Ankle Sprain (Adult) Prescriptions: New oxycodone 5 mg tablet 5 - 10 mg PO Q8H PRN (Reason: pain) 3 Days Qty: 15 0RF No Action acetaminophen 500 MG tablet 1,000 mg PO DAILY PRN (Reason: Pain) ibuprofen 200 MG tablet 400 - 600 mg PO DAILY PRN (Reason: Pain) lorazepam 1 mg tablet 1 mg PO DAILY PRN (Reason: anxiety) lidocaine 5 % adhesive patch,medicated 1 patch topical DAILY PRN (Reason: pain) quetiapine 200 mg tablet 400 mg PO BID insulin lispro [Humalog KwikPen Insulin] 100 unit/mL insulin pen 10 - 15 unit subcut TIDCM insulin glargine 100 unit/mL (3 mL) insulin pen, sensor 25 unit subcut BID fluoxetine 20 mg capsule 20 mg PO QHS dextroamphetamine-amphetamine 30 mg tablet 1 tab PO BID PRN (Reason: ADHD) aspirin [Adult Aspirin Regimen] 81 mg tablet,delayed release (DR/EC) 81 mg PO DAILY (DME) handicap placcard See Rx Instructions .Route .MEDSUPPLY Qty: 1 0RF Rx Instructions: dx: debility, CHF Lifetime albuterol sulfate 90 mcg/actuation HFA aerosol inhaler 2 puff inhalation Q4H PRN (Reason: shortness of breath or wheezing) Qty: 8.5 3RF levothyroxine 25 mcg tablet 25 mcg PO DAILY Qty: 90 3RF zolpidem 10 mg tablet 10 mg PO QHS PRN (Reason: sleep) Qty: 30 0RF clonidine HCl 0.1 mg tablet 0.1 mg PO BID Qty: 180 3RF carvedilol 25 mg tablet 25 mg PO BID Qty: 180 3RF Rx Instructions: must administer with a meal/food rabeprazole [AcipHex] 20 mg tablet,delayed release (DR/EC) 20 mg PO DAILY Qty: 90 3RF nifedipine 60 mg tablet extended release 24hr 60 mg PO DAILY Qty: 90 3RF (DME) pen needle, diabetic [Unifine Pentips Plus] 31 gauge x 5/16" needle See Rx Instructions .Route Qty: 100 12RF Rx Instructions: Use as directed 4-5 times daily; Primary Care Provider: Dhaval Braden Referrals: Melquiades Alegre MD [Med Staff - Active Staff] - Elijah Zepeda DPM [Med Staff - Active Staff] - Dhaval Braden MD [Primary Care Provider] - Activity Restrictions/Additional Instructions: Suspect you have a sprain of your ankle. There are chronic changes to the ankleon your x-ray but it is possible you could have a very small avulsion fracture of the distal left fibula. These are treated the same. You been given a walking boot. Is weightbearing as tolerated. Continue to ice and try to elevate leg is much as possible. After discussion with the pain management office you have been given a short course of oxycodone for breakthrough pain. You may also take ibuprofen and/or Tylenol for pain control. Print Language: Japanese Disposition Disposition: Home, Self Care What to do if you have Problems For any increased pain, shortness of breath, bleeding, nausea or vomiting, chestpain, or any unexpected problems, contact your Primary Care Provider. Call [facility] ([phone]) or report to the closest Emergency Room. Call 911 if necessary. 07/08/24 1520 <Electronically signed by Blanca Julio DO> Cosigner Signature (if applicable): CC: Dr. Dhaval Braden MD ~ Signed [facility] Work Phone: [phone] 100-130203-07-2025 Radiology Diagnostic study note [facility] Imaging Services [address] [place] [id number] Lumbar Spine 2 or 3 Views MR#: [id number] Acct: [id number] Name: LEIDY DC Rep #: [id number] : 1970 M 53 From: Sherice Dougherty MD PCP: Dr. Dhaval Braden MD Status: RE G ER Study:Lumbar Spine 2 or 3 Views Date of Exam: 07/08/24 Exam# [id number] Ordering Dr: Gen Julio DO PROCEDURE: LUMBAR SPINE 2 OR 3 VIEWS REASON FOR EXAM: Injury. Pain. TECHNIQUE: 2 view(s) of the lumbar spine. COMPARISON: MRI lumbar spine dated 04/13/2021. FINDINGS: Vertebra: Vertebral bodies normal in height. Mild spondylosis at L1 through L3. Alignment: No scoliosis. No spondylolisthesis. Discs: Narrowing of the L1-L2 and L2-L3 interspaces. Foramens: Unremarkable. Facets: Suspected facet arthropathy at L5-S1. Soft tissues: Prevertebral soft tissues are normal. RAD/Lumbar Spine 2 or 3 Views IMPRESSION: Mild spondylosis. Degenerative disc disease at L1 through L3. Reading Location: [place] [address] CC: Dr. Blanca Julio DO; Dr. Dhaval Braden MD ~ Book Packer: Signed [facility]03-07-2025 Radiology Diagnostic study note [facility] Imaging Services [address] [place], [place] [id number] Tibia & Fibula 2 Views MR#: [id number] Acct: [id number] Name: LEIDY DC Rep #: [id number] : 1970 M 53 From: Sherice Dougherty MD PCP: Dr. Dhaval Braden MD Status: RE G ER Study:Tibia & Fibula 2 Views Date of Exam: 07/08/24 Exam# [id number] Ordering Dr: Gen Julio DO PROCEDURE: TIBIA AND FIBULA 2 VIEWS REASON FOR EXAM: Injury. Pain. TECHNIQUE: 2 view(s) of left tibia and fibula COMPARISON: None. FINDINGS: No fracture. No suspicious bone lesion. Normal alignment at the knee and ankle. Ankle soft tissue swelling. RAD/Tibia & Fibula 2 Views IMPRESSION: No acute osseous abnormalities. Soft tissue swelling at the ankle. Reading Location: [place] [address] CC: Dr. Blanca Julio DO; Dr. Dhaval Braden MD ~ Book Packer: Signed [facility]03-07-2025 Radiology Diagnostic study note [facility] Imaging Services [address] [place] [address] Ankle min 3 Views MR#: [id number] Acct: [id number] Name: LEIDY DC Rep #: [id number] : 1970 M 53 From: Sherice Dougherty MD PCP: Dr. Dhaval Braden MD Status: RE G ER Study:Ankle min 3 Views Date of Exam: Exam# [id number] Ordering Dr: Gen Julio DO PROCEDURE: ANKLE MIN 3 VIEWS REASON FOR EXAM: Injury. Pain TECHNIQUE: 3 views of the left ankle COMPARISON: None FINDINGS: No visible fracture line. No suspicious bone lesion. Ossicles at the tip of the medial malleolus. Tiny radiopaque density at the tip of the lateral malleolus. Normal alignment. Mortise appears intact. No effusion. Marked soft tissue swelling surrounds the ankle. RAD/Ankle min 3 Views IMPRESSION: Ossicles at the tip of the medial malleolus most likely related to old remote trauma. Tiny radiopaque density at the tip of the lateral malleolus may represent old trauma. Can not exclude a tiny acute avulsion fracture. Marked soft tissue swelling. Reading Location: [place] [address] CC: Dr. Blanca Julio DO; Dr. Dhaval Braden MD ~ Book Packer: Signed [facility]03-07-2025 Radiology Diagnostic study note [facility] Imaging Services [address] [place] [address] [id number] Brain/Head without Contrast MR#: [id number] Acct: [id number] Name: LEIDY DC Rep #: [id number] : 1970 M 53 From: Sherice Dougherty MD PCP: Dr. Dhaval Braden MD Status: RE G ER Study:Brain/Head without Contrast Date of Exa m: 07/08/24 Exam# [id number] Ordering Dr: Gen Julio DO EXAM: CT BRAIN WITHOUT CONTRAST CLINICAL HISTORY: WEAKNESS. PATIENT FELL. TRAUMA. COMPARISON: CT brain dated 03/20/2021. MRI brain dated 03/21/2021. TECHNIQUE: Contiguous axial scans of 3.75 mm slice thicknesses with sagittal and coronal reconstruction images. One or more dose reduction techniques were utilized (e.g., automated exposure control, adjustment of mA and/or kv according to patient size, use of iterative reconstruction technique). FINDINGS: Cerebrum: No intraparenchymal hemorrhage. No abnormal areas of encephalomalacia.No mass effect or midline shift. Berg-white matter differentiation is normal. Ventricles and cisterns: Appropriate size for patient's age. Extra-axial fluid: Unremarkable. Posterior fossa: Unremarkable cerebellum. No abnormalities involving the brainstem. Paranasal sinuses: Mild mucoperiosteal thickening in both maxillary sinuses. Vasculature: Unremarkable. Mastoid air cells: Normal. Calvarium: Unremarkable. Soft tissues: Unremarkable. CT/Brain/Head without Contrast IMPRESSION: 1. No acute intracranial abnormalities are demonstrated. Reading [facility] CC: Dr. Blanca Julio DO; Dr. Dhaval Braden MD ~ Book Packer: Signed [facility]03-29-2024 [facility] Medical Records Department [address] [place] [address] Discharge Summary 07/31/23 1651 MR#: [id number] Acct: [id number] Name: LEIDY DC Rep #: [id number] : 1970 52 From: Isaak Gallagher DO PCP: Dr. Dhaval Braden MD Status:DIS OLESYA Location: [facility] ED291-2 Providers Date of Admission: 07/30/23 Date of Discharge: 07/31/23 Primary Care Physician: Dr. Dhaval Braden MD Reason For Visit: DM2 Diagnosis Discharge Diagnosis (1) Diabetes mellitus, new onset: Status: Acute Code(s): E11.9 - Type 2 diabetes mellitus without complications Plan 1. Type 2 diabetes-new onset #2 dehydration #3 essential hypertension #4 coronary artery disease Medications at Discharge Home Medications acetaminophen 500 mg tablet 1,000 mg PO DAILY PRN Pain 05/19/18 ibuprofen 200 mg tablet 400 - 600 mg PO DAILY PRN Pain 05/19/18 handicap placcard #1 ea 03/15/21 albuterol sulfate 90 mcg/actuation aerosol inhaler 2 puff inhalation Q4H PRN shortness of breath or wheezing #8.5 grams 10/03/21 aspirin 81 mg tablet,delayed release (Adult Aspirin Regimen) 81 mg PO QDAY #90 tabs 09/16/22 carvedilol 25 mg tablet 50 mg (2 x 25 mg) PO BID #360 tabs 09/16/22 clonidine HCl 0.1 mg tablet 0.1 mg PO BID blood pressure #180 tabs 09/16/22 fluoxetine 10 mg tablet 20 mg PO DAILY 10/13/22 lorazepam 1 mg tablet 1 mg PO DAILY PRN 10/13/22 levothyroxine 25 mcg tablet 25 mcg PO DAILY #90 tabs 01/16/23 rabeprazole 20 mg tablet,delayed release (AcipHex) 20 mg PO DAILY stomach #90 tabs 02/03/23 nifedipine 60 mg tablet,extended release 24 hr 60 mg PO DAILY BP #30 tabs 02/26/23 zolpidem 10 mg tablet 10 mg PO QHS PRN sleep #30 tabs 04/30/23 quetiapine 200 mg tablet 200 mg PO .Four times a day sleep #120 tabs 05/11/23 oxycodone myristate 9 mg capsule sprinkle extended release 12 hr(DON'T CRUSH) (Xtampza ER) 18 mg PO BID 07/30/23 insulin glargine-yfgn 100 unit/mL (3 mL) subcutaneous pen 20 unit (0.2 mL) subcut BID #15 mL 07/31/23 insulin lispro 100 unit/mL subcutaneous pen (Humalog KwikPen (U-100) Insulin) 10 unit (0.1 mL) subcut TIDCM #15 mL 07/31/23 Hospital Course Operations None Procedures None Summary of Care Provided Minutes Spent on Discharge: 31 Hospital Course: This 52-year-old white male was seen in the emergency room at [facility] with complaints of polydipsia and polyuria as well as diffuse muscle aches and feeling unwell. Patient also stated he had been losing weight over the past few months-around 30 pounds. Lab was obtained in the emergency room, his glucose was elevated at 841, creatinine was elevated at 1.65, and the patient's anion gap was normal. Patient was placed into observation status on MedSurg 3, he was placed on insulin and his blood sugars were monitored. Patient was given IV fluids and his labs improved. Patient was seen by nutritional services regarding his type 2 diabetes. Patient stated that his was a nurse and that she could help administer his injections at home. On 07/31/2023, patient was seen and examined: On examination he appeared in good health and spirits. Vital signs as documented. Skin warm and dry and without overt rashes. Neck without JVD, neck was supple, trachea midline, thyroid was normal. Lungs clear bilaterally, normal air movement was noted. Heart exam notable for regular rhythm, normal sounds and absence of murmurs, rubs or gallops. Abdomen unremarkable and without evidence of organomegaly, masses, or abdominal aortic enlargement. Bowel sounds are present, abdomen is not distended. Extremities nonedematous, no cyanosis was noted, no clubbing was noted. Neuro: Cranial nerves II through XII are grossly intact, no focal motor deficits were noted, sensation to light touch and pinprick intact, motor exam 5/5 throughout. Psych: Patient is alert and oriented x3, he does not appear anxious or depressed, he does not appear agitated. On 07/31/2023, patient was seen and examined and felt to be in stable condition for discharge home. Weight / BMI Weight Weight: 114.94 kg Body Mass Index (BMI) 30.8 ABG / Lab / Microbiology Data 07/31/23 06:40 07/31/23 06:40 Laboratory: Laboratory Results - last 24 hr 07/30/23 16:56: POC Glucose 489 H* 07/30/23 18:34: POC Glucose 399 H 07/30/23 20:56: POC Glucose 392 H 07/31/23 05:46: POC Glucose 342 H 07/31/23 06:40: WBC 4.1 L, RBC 4.50 L, Hgb 13.0, Hct 38.3 L, MCV 85.1, MCH 28.9, MCHC 33.9, RDW Std Deviation 40.0, RDW Coeff of Lalita 13.0, Plt Count 183, MPV 10.3, Immature Gran % (Auto) 1.000 H, Neut % (Auto) 49.6, Lymph % (Auto) 29.6, [place] % (Auto) 13.2 H, Eos % (Auto) 5.9 H, Baso % (Auto) 0.7, Absolute Neuts (auto) 2.0, Absolute Lymphs (auto) 1.21, Nucleated RBC % 0, Sodium 133 L, Potassium 3.7, Chloride 101, Carbon Dioxide 25.0, Anion Gap 7, BUN 14, Creatinine 1.05, Estim Creat C (more content not included)...[facility]03-29-2024 Discharge summary Author Yaakov Barrientos [facility] July 30, 2023 10:13pm Note Date/Time July 30, 2023 1:2 2pm [facility] Medical Records Department [address] [place] [address] Emergency Department Summary 07/30/23 MR#: [id number] Acct: [id number] Name: LEIDY DC Rep #:[id number] : 1970 52 From: Savanah BASS PCP: Dr. Dhaval Braden MD Status:DAGOBERTO DACOSTA Location: AL3 [id number] HPI <SHELIA Raines - Last Filed: 07/30/23 14:33> History of Present Illness Chief Complaint: Hyperglycemia Narrative Narrative: 52-year-old male with past medical history Marfan's disease was sent in by his primary care's office when a fingerstick glucose was 580. He does not have a known history of diabetes. He states 7 weeks ago he got a spinal injection for chronic pain and since then he has been extremely thirsty, fatigued, and has increased urination. He lost 20 pounds. [facility] <SHELIA Raines - Last Filed: 07/30/23 14:33> [facility] Medical History (Updated 07/30/23 @ 14:[address] 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 Essential (primary) hypertension (05/20/18) GERD (gastroesophageal reflux disease) History of aortic dissection Hyperkalemia Hyperlipidemia Hypertensive urgency Hypoxia Infection of external auditory canal Marfan syndrome Marfans syndrome Nonobstructive atherosclerosis of coronary artery NEO (obstructive sleep apnea) Uncontrolled hypertension Home Medications acetaminophen 500 mg tablet 1,000 mg PO DAILY PRN Pain 05/19/18 [History Last Taken 05/19/18] ibuprofen 200 mg tablet 400 - 600 mg PO DAILY PRN Pain 05/19/18 [History Last Taken 05/19/18] handicap placcard #1 ea 03/15/21 [Rx Last Taken Unknown] fenofibrate 160 mg tablet 160 mg PO DAILY #90 tabs 09/18/21 [Rx Last Taken Unknown] albuterol sulfate 90 mcg/actuation aerosol inhaler 2 puff inhalation Q4H PRN shortness of breath or wheezing #8.5 grams 10/03/21 [Rx Last Taken Unknown] aspirin 81 mg tablet,delayed release (Adult Aspirin Regimen) 81 mg PO QDAY #90 tabs 09/16/22 [Rx Last Taken Unknown] carvedilol 25 mg tablet 50 mg (2 x 25 mg) PO BID #360 tabs 09/16/22 [Rx Last Taken Unknown] clonidine HCl 0.1 mg tablet 0.1 mg PO BID blood pressure #180 tabs 09/16/22 [Rx Last Taken Unknown] clopidogrel 75 mg tablet 75 mg PO DAILY heart health #90 tabs 09/16/22 [Rx Last Taken Unknown] hydralazine 50 mg tablet 150 mg (3 x 50 mg) PO TID #810 tabs 09/16/22 [Rx Last Taken Unknown] buprenorphine 20 mcg/hour weekly transdermal patch 10/13/22 [History Last Taken Unknown] fluoxetine 10 mg tablet 10 mg PO DAILY 10/13/22 [History Last Taken Unknown] hydrocodone-acetaminophen 5-325mg 5mg-325mg 1 tab PO BID PRN Pain 10/13/22 [History Last Taken Unknown] isosorbide dinitrate 30 mg tablet 30 mg PO BID blood pressure 10/13/22 [History Last Taken Unknown] lorazepam 1 mg tablet mg 10/13/22 [History Last Taken Unknown] amoxicillin 875 mg-potassium clavulanate 125 mg tablet 1 tab PO BID #8 tabs 10/17/22 [Rx Last Taken Unknown] ferrous sulfate 325 mg (65 mg iron) tablet (FeroSul) 325 mg PO DAILY@1200 #30 tabs 10/17/22 [Rx Last Taken Unknown] levothyroxine 25 mcg tablet 25 mcg PO DAILY #90 tabs 01/16/23 [Rx Last Taken Unknown] rabeprazole 20 mg tablet,delayed release (AcipHex) 20 mg PO DAILY stomach #90 tabs 02/03/23 [Rx Last Taken Unknown] nifedipine 60 mg tablet,extended release 24 hr 60 mg PO DAILY BP #30 tabs 02/26/23 [Rx Last Taken Unknown] zolpidem 10 mg tablet 10 mg PO QHS PRN sleep #30 tabs 04/30/23 [Rx Last Taken Unknown] quetiapine 200 mg tablet 200 mg PO .Four times a day sleep #120 tabs 05/11/23 [Rx Last Taken Unknown] Allergy/AdvReac Type Severity Reaction Status Date / Time Quinolones Allergy Unknown PT UNSURE Verified 07/30/23 13:04 OF REACTION ciprofloxacin [From Cipro] Allergy Rash Verified 07/30/23 13:04 ciprofloxacin HCl Allergy Rash Verified 07/30/23 13:04 [From Cipro] sulfamethoxazole Allergy Rash Verified 07/30/23 13:04 [From Bactrim] tramadol Allergy Itching Verified 07/30/23 13:04 trimethoprim [From Bactrim] Allergy Rash Verified 07/30/23 13:04 Family History Son Marfans syndrome Daughter Marfans syndrome Father Hypertension Grandfather Heart disease Myocardial infarction CVA (cerebral vascular accident) Grandmother Heart disease Surgical History H/O coronary artery bypass surgery (03/08/11) History of hand surgery History of left heart catheterization (12/14/20) History of mitral valve repair (03/08/11) History of open reduction and internal fixation (ORIF) procedure (2016) History of surgical fusion joint History of tonsillectomy Hx of ascending aorta replacement (03/08/11) Social History household members: spouse Smoking Status: Never smoker alcohol intake: current alcohol intake frequency: a few times a month substance use type: does not use ROS <SHELIA Raines - Last Filed: 07/30/23 14:33> ROS ED ROS Narrative Constitutional: Negative for fever, chills. CVS: Negative for chest pain. Respiratory: Negative for shortness of breath. GI: Negative for abdominal pain, nausea, vomiting. : Negative for dysuria. EXAM <SHELIA Raines - Last Filed: 07/30/23 14:33> Physical Exam Narrative Exam Narrative: CONST: Patient sitting in no acute distress. EYES: Normal inspection. ENT: Normal inspection, dry mucous membranes. NECK: Normal inspection. RESP: No respiratory distress, CTAB. CVS: Regular rate and rhythm, no murmur, no gallop. ABD: Soft and nontender, no guarding or rebound, nondistended. SKIN: Color normal, no rash, warm, dry, intact. EXTREMITIES: Normal appearance, no pedal edema. NEURO: Oriented x4. PSYCH: Normal affect. Const Vital Signs: 07/30/23 13:04 07/30/23 14:08 Temperature 97.1 F L Temperature Source Temporal Pulse Rate 78 Respiratory Rate 18 Respiratory Effort Normal Respiratory Pattern Normal Blood Pressure 125/71 H Blood Pressure Mean 89 Pulse Ox 95 Oxygen Delivery Method Room Air <Dr. Yaakov Barrientos DO - Last Filed: 07/30/23 14:21> Physical Exam Const Vital Signs: 07/30/23 13:04 07/30/23 14:08 Temperature 97.1 F L Temperature Source Temporal Pulse Rate 78 Respiratory Rate 18 Respiratory Effort Normal Respiratory Pattern Normal Blood Pressure 125/71 H Blood Pressure Mean 89 Pulse Ox 95 Oxygen Delivery Method Room Air MDM <SHELIA Raines - Last Filed: 07/30/23 14:33> [facility] MDM Narrative Medical decision making narrative: History gathered from: Patient, PCP telephone report Differential: New onset diabetes with hyperglycemia versus DKA Consults: Hospitalist Patient sent in for new onset diabetes with outpatient blood sugar around 580. He reports a history of polyuria and polydipsia. He appears well and nontoxic. Afebrile with normal vital signs. He has dry mucous membranes and smells like ketones. The rest of his exam is benign. Workup shows glucose of 841 with normal CO2 and anion gap and negative ketones ruling out DKA. Sodium is 125 (corrected level 137). Patient was given IV fluids and started on an insulin drip. Case discussed with the hospitalist for admission. I have personally performed a face to face assessment of the patient and have reviewed the RILEY Note. I performed a substantive portion of the visit including all aspects of the following. My castillo findings include: History is [patient presents with elevated blood sugars. Patient for the last 7 weeks has had increased thirst and increased urination and some blurred vision. Waited to see his primary care physician today. His blood sugar was checked in the office and was well over 500 and referred to the emergency department. Patient has history of Marfan's and history of chronic pain. Patient states that 8 weeks ago he had a steroid injection and he thinks maybe that is what set things off. No history of diabetes otherwise. He does have history of sleep apnea as well as hypertension.] Exam is [HEENT-PERRLA, EOMI. Cranial nerves II through XII grossly intact. TMs clear. Mucous membranes moist. No adenopathy. Cardiovascular-regular rate and rhythm without murmur or ectopy Lungs-clear to auscultation, chest wall stable without crepitus or subcu emphysema Abdomen-normoactive bowel sounds, soft, nontender, no rebound or rigidity, no peritoneal signs. Extremities-intact ?4, normal range of motion, normal pulses, atraumatic] Medical Decison Making [patient presents with hyperglycemia with vision changes and frequent urination. IV line established. CBC with differential count of 4.9 with hemoglobin 13.6 and platelet count of 1 98. Chemistry showed a sodium of 125 with anion gap of 8. BUN 19 and creatinine 1.65. Blood glucose was 841. Acetone was negative. Patient will be started on insulin drip. Case discussed with hospitalist to evaluate patient for admission for hyperglycemia and new onset diabetes] Other additions or changes: [None] Lab Data Labs: Laboratory Results - last 24 hr 07/30/23 13:40 WBC 4.9 RBC 4.77 Hgb 13.6 Hct 41.0 MCV 86.0 MCH 28.5 MCHC 33.2 RDW Std Deviation 39.8 RDW Coeff of Lalita 13.0 Plt Count 198 MPV 10.5 Immature Gran % (Auto) 1.400 H Neut % (Auto) 61.8 Lymph % (Auto) 19.7 [place] % (Auto) 12.6 H Eos % (Auto) 3.7 Baso % (Auto) 0.8 Absolute Neuts (auto) 3.0 Absolute Lymphs (auto) 0.97 Nucleated RBC % 0 Sodium 125 L Potassium 4.0 Chloride 92 L Carbon Dioxide 25.0 Anion Gap 8 BUN 19 H Creatinine 1.65 H Estim Creat Clear Calc 70.80 Est GFR (MDRD) Af Amer 56 L Est GFR (MDRD) Non-Af 46 L BUN/Creatinine Ratio 11.5 Glucose 841 H* Calcium 8.5 Acetone Level NEGATIVE <Dr. Yaakov Barrientos, DO - Last Filed: 07/30/23 14:21> MDM MDM Narrative Medical decision making narrative: History gathered from: Patient, PCP telephone report Differential: New onset diabetes with hyperglycemia versus DKA Patient sent in for new onset diabetes with outpatient blood sugar around 580. He reports a history of polyuria and polydipsia. He appears well and nontoxic. Afebrile with normal vital signs. He has dry mucous membranes and smells like ketones. The rest of his exam is benign. I have personally performed a face to face assessment of the patient and have reviewed the RILEY Note. I performed a substantive portion of the visit including all aspects of the following. My castillo findings include: History is [patient presents with elevated blood sugars. Patient for the last 7 weeks has had increased thirst and increased urination and some blurred vision. Waited to see his primary care physician today. His blood sugar was checked in the office and was well over 500 and referred to the emergency department. Patient has history of Marfan's and history of chronic pain. Patient states that 8 weeks ago he had a steroid injection and he thinks maybe that is what set things off. No history of diabetes otherwise. He does have history of sleep apnea as well as hypertension.] Exam is [HEENT-PERRLA, EOMI. Cranial nerves II through XII grossly intact. TMs clear. Mucous membranes moist. No adenopathy. Cardiovascular-regular rate and rhythm without murmur or ectopy Lungs-clear to auscultation, chest wall stable without crepitus or subcu emphysema Abdomen-normoactive bowel sounds, soft, nontender, no rebound or rigidity, no peritoneal signs. Extremities-intact ?4, normal range of motion, normal pulses, atraumatic] Medical Decison Making [patient presents with hyperglycemia with vision changes and frequent urination. IV line established. CBC with differential count of 4.9 with hemoglobin 13.6 and platelet count of 1 98. Chemistry showed a sodium of 125 with anion gap of 8. BUN 19 and creatinine 1.65. Blood glucose was 841. Acetone was negative. Patient will be started on insulin drip. Case discussed with hospitalist to evaluate patient for admission for hyperglycemia and new onset diabetes] Other additions or changes: [None] Lab Data Attestation: I reviewed the patient's lab results. Labs: Laboratory Results - last 24 hr 07/30/23 13:40 WBC 4.9 RBC 4.77 Hgb 13.6 Hct 41.0 MCV 86.0 MCH 28.5 MCHC 33.2 RDW Std Deviation 39.8 RDW Coeff of Lalita 13.0 Plt Count 198 MPV 10.5 Immature Gran % (Auto) 1.400 H Neut % (Auto) 61.8 Lymph % (Auto) 19.7 [place] % (Auto) 12.6 H Eos % (Auto) 3.7 Baso % (Auto) 0.8 Absolute Neuts (auto) 3.0 Absolute Lymphs (auto) 0.97 Nucleated RBC % 0 Sodium 125 L Potassium 4.0 Chloride 92 L Carbon Dioxide 25.0 Anion Gap 8 BUN 19 H Creatinine 1.65 H Estim Creat Clear Calc 70.80 Est GFR (MDRD) Af Amer 56 L Est GFR (MDRD) Non-Af 46 L BUN/Creatinine Ratio 11.5 Glucose 841 H* Calcium 8.5 Acetone Level NEGATIVE Discharge Plan Dx/Rx/DC Orders Clinical Impression: Diabetes mellitus, new onset, [place] (acute kidney injury), Hyperglycemia Disposition Disposition: Acute Care [facility] What to do if you have Problems For any increased pain, shortness of breath, bleeding, nausea or vomiting, chest pain, or any unexpected problems, contact your Primary Care Provider. Call [facility] ([phone]) or report to the closest Emergency Room. Call 911 if necessary. 07/30/23 1433 <Electronically signed by Savanah BASS> Cosigner Signature (if applicable): 07/30/23 2213 <Electronically signed by Yaakov Barrientos DO> CC: Dr. Dhaval Braden MD ~ Signed [facility] Work Phone: [phone] 842-286903-28-2024 History and physical note Author Daquan Miller [facility] July 30, 2023 3:04pm Note Date/Time July 30, 2023 3:0 1pm [facility] Medical Records Department [address] [place] [address] H&P Exam - Hospitalist 07/30/23 4085 MR#: [id number] Acct: [id number] Name: LEIDY DC Rep #:[id number] : 1970 52 From: Daquan Miller DO PCP: Dr. Dhaval Braden MD Status:RE G ER Location: ED HPI - General General Date of Service: 07/30/23 Chief Complaint: Polyuria. Polydipsia. HPI Narrative LEIDY DC, is a 52 M who presents who for the past few weeks, has been experiencing polyuria, polydipsia, diffuse myalgias and feeling unwell. Over the past few months he is also been losing roughly about 30 pounds. Present to the emergency room and his glucose was a 41. Patient did receive IV fluids. The hospital service was consulted for admission. The physician speech pathology assistant in the emergency room ordered for an insulin drip. Being that is not in DKA, I discontinued that and ordered a dose of Humalog. Patient has been checked for diabetes in the past and has never been tested positive though should be noted that his glucose was 163 back in October. Patient today's had an A1c at that time which was 5.3. 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 Essential (primary) hypertension (05/20/18) GERD (gastroesophageal reflux disease) History of aortic dissection Hyperkalemia Hyperlipidemia Hypertensive urgency Hypoxia Infection of external auditory canal Marfan syndrome Marfans syndrome Nonobstructive atherosclerosis of coronary artery NEO (obstructive sleep apnea) Uncontrolled hypertension Home Medications acetaminophen 500 mg tablet 1,000 mg PO DAILY PRN Pain 05/19/18 [History Last Taken 05/19/18] ibuprofen 200 mg tablet 400 - 600 mg PO DAILY PRN Pain 05/19/18 [History Last Taken 05/19/18] handicap placcard #1 ea 03/15/21 [Rx Last Taken Unknown] fenofibrate 160 mg tablet 160 mg PO DAILY #90 tabs 09/18/21 [Rx Last Taken Unknown] albuterol sulfate 90 mcg/actuation aerosol inhaler 2 puff inhalation Q4H PRN shortness of breath or wheezing #8.5 grams 10/03/21 [Rx Last Taken Unknown] aspirin 81 mg tablet,delayed release (Adult Aspirin Regimen) 81 mg PO QDAY #90 tabs 09/16/22 [Rx Last Taken Unknown] carvedilol 25 mg tablet 50 mg (2 x 25 mg) PO BID #360 tabs 09/16/22 [Rx Last Taken Unknown] clonidine HCl 0.1 mg tablet 0.1 mg PO BID blood pressure #180 tabs 09/16/22 [Rx Last Taken Unknown] clopidogrel 75 mg tablet 75 mg PO DAILY heart health #90 tabs 09/16/22 [Rx Last Taken Unknown] hydralazine 50 mg tablet 150 mg (3 x 50 mg) PO TID #810 tabs 09/16/22 [Rx Last Taken Unknown] buprenorphine 20 mcg/hour weekly transdermal patch 10/13/22 [History Last Taken Unknown] fluoxetine 10 mg tablet 10 mg PO DAILY 10/13/22 [History Last Taken Unknown] hydrocodone-acetaminophen 5-325mg 5mg-325mg 1 tab PO BID PRN Pain 10/13/22 [History Last Taken Unknown] isosorbide dinitrate 30 mg tablet 30 mg PO BID blood pressure 10/13/22 [History Last Taken Unknown] lorazepam 1 mg tablet mg 10/13/22 [History Last Taken Unknown] amoxicillin 875 mg-potassium clavulanate 125 mg tablet 1 tab PO BID #8 tabs 10/17/22 [Rx Last Taken Unknown] ferrous sulfate 325 mg (65 mg iron) tablet (FeroSul) 325 mg PO DAILY@1200 #30 tabs 10/17/22 [Rx Last Taken Unknown] levothyroxine 25 mcg tablet 25 mcg PO DAILY #90 tabs 01/16/23 [Rx Last Taken Unknown] rabeprazole 20 mg tablet,delayed release (AcipHex) 20 mg PO DAILY stomach #90 tabs 02/03/23 [Rx Last Taken Unknown] nifedipine 60 mg tablet,extended release 24 hr 60 mg PO DAILY BP #30 tabs 02/26/23 [Rx Last Taken Unknown] zolpidem 10 mg tablet 10 mg PO QHS PRN sleep #30 tabs 04/30/23 [Rx Last Taken Unknown] quetiapine 200 mg tablet 200 mg PO .Four times a day sleep #120 tabs 05/11/23 [Rx Last Taken Unknown] Allergy/AdvReac Type Severity Reaction Status Date / Time Quinolones Allergy Unknown PT UNSURE Verified 07/30/23 15:02 OF REACTION ciprofloxacin [From Cipro] Allergy Rash Verified 07/30/23 15:02 ciprofloxacin HCl Allergy Rash Verified 07/30/23 15:02 [From Cipro] sulfamethoxazole Allergy Rash Verified 07/30/23 15:02 [From Bactrim] tramadol Allergy Itching Verified 07/30/23 15:02 trimethoprim [From Bactrim] Allergy Rash Verified 07/30/23 15:02 Family History Son Marfans syndrome Daughter Marfans syndrome Father Hypertension Grandfather Heart disease Myocardial infarction CVA (cerebral vascular accident) Grandmother Heart disease Surgical History H/O coronary artery bypass surgery (03/08/11) History of hand surgery History of left heart catheterization (12/14/20) History of mitral valve repair (03/08/11) History of open reduction and internal fixation (ORIF) procedure (2016) History of surgical fusion joint History of tonsillectomy Hx of ascending aorta replacement (03/08/11) Social History household members: spouse Smoking Status: Never smoker alcohol intake: current alcohol intake frequency: a few times a month substance use type: does not use ROS ROS Narrative All review of systems were negative except as mentioned above in the history of present illness and the other review of systems. Vital Signs Vital Signs Vital Signs: 07/30/23 13:04 07/30/23 14:08 Temperature 36.2 C L Temperature Source Temporal Pulse Rate 78 Respiratory Rate 18 Respiratory Effort Normal Respiratory Pattern Normal Blood Pressure 125/71 H Blood Pressure Mean 89 Pulse Ox 95 Oxygen Delivery Method Room Air Weight Weight: 114.305 kg Body Mass Index (BMI) 30.7 Physical Exam Const alert, oriented x3 and no apparent distress HEENT normocephalic and head/scalp atraumatic Resp normal respiratory effort, no retractions, no use of accessory muscles and clearto auscultation bilaterally Cardio regular rate, regular rhythm, S1 normal heart sound and S2 normal heart sound GI normal to inspection, nondistended, normoactive bowel sounds and soft to palpation GI Narrative: Protuberant abdomen but soft nondistended. Extremity normal to inspection Extremity Narrative: Long digits. Patient is missing his right index finger at the PIP. Skin Skin Narrative: No rashes or lesions Results Lab / Micro Data 07/30/23 13:40 07/30/23 13:40 Labs: Laboratory Results - last 24 hr 07/30/23 13:40: WBC 4.9, RBC 4.77, Hgb 13.6, Hct 41.0, MCV 86.0, MCH 28.5, MCHC 33.2, RDW Std Deviation 39.8, RDW Coeff of Lalita 13.0, Plt Count 198, MPV 10.5, Immature Gran % (Auto) 1.400 H, Neut % (Auto) 61.8, Lymph % (Auto) 19.7, [place] % (Auto) 12.6 H, Eos % (Auto) 3.7, Baso % (Auto) 0.8, Absolute Neuts (auto) 3.0, Absolute Lymphs (auto) 0.97, Nucleated RBC % 0, Sodium 125 L, Potassium 4.0, Chloride 92 L, Carbon Dioxide 25.0, Anion Gap 8, BUN 19 H, Creatinine 1.65 H, Estim Creat Clear Calc 70.80, Est GFR (MDRD) Af Amer 56 L, Est GFR (MDRD) Non-Af46 L, BUN/Creatinine Ratio 11.5, Glucose 841 H*, Calcium 8.5, Acetone Level NEGATIVE Assessment & Plan Assessment/Plan (1) Diabetes mellitus, new onset: PLAN: Plan Diabetes mellitus type 2, new diagnosis * This may have been ongoing for the past few months. Patient did have an elevated glucose of 163 back in October but A1c at that time was 5.3. * Did discuss with the patient the need, least for now, for insulin. Will give him 20 units of Humalog and then schedule insulin glargine 15 units starting tonight. Depending on how his blood sugars respond it is unclear if that will need to be titrated up or down. Additionally we will have him on prandial Humalog 5 units with meals. * Recheck an A1c Hyponatremia * Patient is awake and alert and I do not feel an insulin drip is necessary at this time. I feel that this probably component of pseudohyponatremia but also may be some delusional component as patient has been having polyuria with his uncontrolled diabetes. * Patient will be on normal saline IV fluids. Elevated creatinine * Creatinine is 1.65 and back in October is 1.34. This does not rise to qualify as acute kidney injury at this time. * IV fluids Chronic conditions * Marfan's disease: Patient has had thoracic as well as vertebral dissections abdomen repaired * CAD: Continue with home medications once those are reconciled * Anemia: Hemoglobin is higher than baseline but per that may be due to hemoconcentration. * Depression: Continue home meds once those are reconciled * Anxiety: On lorazepam * Hypertension: Stable continue with home medications with cells are reconciled. VTE prophylaxis: Not indicated given current observation status Disposition: Patient will be brought under observation status is a feel the patient will respond appropriately to medical therapy and would anticipate discharge on the . Charges/Coding Visit Charges Inpatient E&M: 19859 Init Hosp L2 07/30/23 1504 <Electronically signed by Daquan Miller DO> Cosigner Signature (if applicable): CC: Dr. Daquan Miller DO; Dr. Dhaval Braden MD~ Signed [facility] Work Phone: 1(525) 771-320907-26-2023 Miscellaneous Notes* Telephone Encounter - Brooke Simon - 11/26/2022 2:31 PM EDT 3RD and Final attempt: LM and sent unable to reach letter * Telephone Encounter - Brooke Simon - 11/23/2022 2:31 PM EDT 2nd attempt: LM * Telephone Encounter - Ina Muller - 11/21/2022 11:23 AM EDT New Patient referral received. DX: ANEMIA REF PROV: DHAVAL BRADEN INS: [facility] for patient to return call. When patient calls, please schedule first New Patient appointment with either provider that works for the patient. Ina Muller [facility] Telephone encounter Note * Telephone Encounter - Eleonora dNiaye RN - 10/22/2022 4:10 PM EDT S: marisol calling CAC d/t appointment confirmation B: calling to verify time and date A: calling to verify time and date of appointment . Advised riley is 10/23 at 9:30 am R: advised to call back with worsening of symptoms, concern or questions. verbalized understanding. Reason for Disposition General information question, no triage required and triager able to answer question Protocols used: Information Only Call - No [id number] [id number] Miscellaneous Notes* Telephone Encounter - Eleonora Ndiaye RN - 10/22/2022 4:10 PM EDT S: marisol calling CAC d/t appointment confirmation B: calling to verify time and date A: calling to verify time and date of appointment . Advised riley is 10/23 at 9:30 am R: advised to call back with worsening of symptoms, concern or questions. verbalized understanding. Reason for Disposition General information question, no triage required and triager able to answer question Protocols used: Information Only Call - No [id number] documented in this [facility]06-16-[address] Miller [facility] October 17, 2022 12:57pm Note Date/Time October 17, 2022 12:[address] [facility] Medical Records Department [address] [place] [address] Discharge Summary 10/17/22 1254 MR#: [id number] Acct: [id number] Name: LEIDY DC Rep #:[id number] : 1970 51 From: Daquan Miller DO PCP: Dr. Dhaval Braden MD Status:AD M IN [facility] Prov[facility] Date of Admission: 10/14/22 Primary Care Physician: Dr. Dhaval Braden MD Consultations 10/14/22 01:21 Consult: Cardiology Routine Consulting Provider: Miko Ramirez Reason for Consult: Elevated troponin EMERGENT Consult: No MD Notified: Yes Date Notified: 10/14/22 Time Notified: 01:02 Method of Notification: ED Physician Initiated Method of Consult:: In-Person Reason For Visit: ELEVATED TROPONIN, PNEUMONIA Diagnosis Discharge Diagnosis (1) Pneumonia: Status: Acute Code(s): J18.9 - Pneumonia, unspecified organism Qualifiers: Pneumonia type: due to Pneumococcus Laterality: right Lung location: unspecified part of lung Qualified Code(s): J13 - Pneumonia due to Streptococcus pneumoniae Plan: Diffuse right-sided pneumonia Abx w CTX and azithromycin PEP therapy Check SCx, BCx, Strep and legionella antigens negative Will discharge with Augmentin. (2) Elevated troponin: Status: Acute Code(s): R77.8 - Other specified abnormalities of plasma proteins Plan: trending down I suspect type II NSTEMI from pneumonia Cards consult appreciated. No additional work up at this time. (3) Uncontrolled hypertension: Status: Acute Code(s): I10 - Essential (primary) hypertension Plan: improved Continue carvedilol 50 BID, isosorbide 30 BID, nifedipine 90 daily, hydralazine 150 TID (4) Hypokalemia: Status: Acute Code(s): E87.6 - Hypokalemia Plan: ongoing, continue to replace Magnesium 2.1 (5) Encephalopathy acute: Status: Acute Code(s): G93.40 - Encephalopathy, unspecified Plan: Resolved Bizarre behaviors at home where he was urinating in different areas of the house. Suspect due to pneumonia and Butrans patch. No additional work up at this time (6) Depression: Status: Acute Code(s): F32.A - Depression, unspecified Plan: Had not showed in about 8 weeks. Pt to follow with his psychiatrist He denies suicidal ideation (7) Anemia: Status: Acute Code(s): D64.9 - Anemia, unspecified Plan: down from August 2021 Iron 34, TIBC 302, ferritin 180, B12 449, folate 3.4, TSH 6.33 Check FT4, T3 Start Iron Plan Chronic conditions: * marfan's syndrome * h/o aortic dissection s/p replair * Chronic pain: Continue with Butrans patch which is currently in place. Continue with his [place]. Follow-up with Dr. Alegre. Patient had been started on morphine. I discussed with the patient that he states he is already established with pain management and he has no new pain issues, I will not prescribe this upon discharge. He will need to follow-up with Dr. Alegre. VTE prophylaxis: LMWH Disposition: To home Medications at Discharge Home Medications acetaminophen 500 mg tablet 1,000 mg PO DAILY PRN Pain 05/19/18 ibuprofen 200 mg tablet 400 - 600 mg PO DAILY PRN Pain 05/19/18 zolpidem 10 mg tablet 10 mg PO QHS PRN Sleep 01/18/21 handicap placcard #1 ea 03/15/21 fenofibrate 160 mg tablet 160 mg PO DAILY #90 tabs 09/18/21 albuterol sulfate 90 mcg/actuation aerosol inhaler 2 puff inhalation Q4H PRN shortness of breath or wheezing #8.5 grams 10/03/21 rabeprazole 20 mg tablet,delayed release (AcipHex) 20 mg PO DAILY stomach #90 tabs 07/17/22 quetiapine 200 mg tablet 200 mg PO .Four times a day sleep #120 tabs 09/01/22 aspirin 81 mg tablet,delayed release (Adult Aspirin Regimen) 81 mg PO QDAY #90 tabs 09/16/22 carvedilol 25 mg tablet 50 mg PO BID #360 tabs 09/16/22 clonidine HCl 0.1 mg tablet 0.1 mg PO BID blood pressure #180 tabs 09/16/22 clopidogrel 75 mg tablet 75 mg PO DAILY heart health #90 tabs 09/16/22 hydralazine 50 mg tablet 150 mg PO TID #810 tabs 09/16/22 nifedipine 90 mg tablet,extended release 24 hr 90 mg PO DAILY BP #90 tabs 09/16/22 buprenorphine 20 mcg/hour weekly transdermal patch 10/13/22 fluoxetine 10 mg tablet 10 mg PO DAILY 10/13/22 hydrocodone-acetaminophen 5-325mg 5mg-325mg 1 tab PO BID PRN Pain 10/13/22 isosorbide dinitrate 30 mg tablet 30 mg PO BID blood pressure 10/13/22 levothyroxine 25 mcg tablet mcg 10/13/22 lorazepam 1 mg tablet mg 10/13/22 amoxicillin 875 mg-potassium clavulanate 125 mg tablet 1 tab PO BID #8 tabs 10/17/22 ferrous sulfate 325 mg (65 mg iron) tablet (FeroSul) 325 mg PO DAILY@1200 #30 tabs 10/17/22 Hospital Course Operations None Procedures None Summary of Care Provided Minutes Spent on Discharge: 32 Hospital Course: Patient presents with confusion. Patient was found to have extensive right-sided infiltrate. Patient was started on antibiotics with ceftriaxone azithromycin. Overall improved. The confusion resolved. Patient was confused and was peeing and various parts of the house and had no recollection of that whatsoever. That is likely due to the patient's pneumonia but also has medications which is a Butrans and [place]. Prior to that, patient had not showered for 8 weeks. This was an intentional decision on him. Just a Mary feel the need. Patient noted that he was depressed and did not have the motivation for self-care. Patient is not suicidal. Patient was offered resources for additional psychiatric management but patient declined. Patient does have a psychiatrist that he follows up and will follow-up with him for further treatments. Patient did have elevated cardiac enzymes. Patient was seen by cardiology and this was felt to be due to the physiologic stress of his pneumonia. No additional work-up from a cardiac perspective was performed. Weight / BMI Weight Weight: 118.6 kg Body Mass Index (BMI) 26.0 ABG / Lab / Microbiology Data Result Diagrams: 10/16/22 06:18 10/16/22 06:18 Microbiology: Microbiology 10/14/22 09:04 Blood Culture (Wb) - Right Wrist Blood Culture - Preliminary No growth in 48 hours. 10/14/22 09:00 Blood Culture (Wb) - Anticubital Right Blood Culture - Preliminary No growth in 48 hours. 10/14/22 10:35 Urine, Clean Catch Legionella Antigen - Final 10/14/22 10:35 Urine, Clean Catch Streptococcus pneumoniae Antigen (M - Final D/C Instructions Discharge Diet: Low fat / Low cholesterol Call your doctor if you observe: Fever of 101 or Higher, Shortness of breath andChest pain Meaningful Use Info Meaningful Use Diagnoses (Choose all that apply): None applicable Discharge Plan Admission Admit Date/Time: 10/14/22 01:00 Primary Reason for Your Visit: Pneumonia Attending Provider: Daquan Miller Primary Care Provider: Dhaval Braden Consulting Providers: Deandre Henson ; Miko Ramirez Instructions Additional Instructions / Restrictions: You presented with pneumonia. Overall he did much better. You will need to continue with the antibiotics as instructed. At home, you had bizarre behaviorsand this is likely compounded by the fact that you had pneumonia but also your pain medications. You noted that you have uncontrolled pain. Unfortunately, you will need to follow-up with Dr. Alegre to have this further addressed since you are already established with him. He did have a myocardial infarction due to the stress of your underlying illness. You are seen by cardiology and they felt it was due to the stress of the illness. You admitted that you were very depressed you had not been showing for the past 8 weeks. Strongly advised to follow-up with your psychiatrist for further medications adjustments, if necessary, and counseling. Discharge Orders/Prescriptions Prescriptions: New ferrous sulfate [FeroSul] 325 mg (65 mg iron) Tablet 325 mg PO DAILY@1200 Qty: 30 0RF amoxicillin-pot clavulanate 875-125 mg tablet 1 tab PO BID Qty: 8 0RF Continued zolpidem 10 mg tablet 10 mg PO QHS PRN (Reason: Sleep) acetaminophen 500 MG tablet 1,000 mg PO DAILY PRN (Reason: Pain) ibuprofen 200 MG tablet 400 - 600 mg PO DAILY PRN (Reason: Pain) hydrocodone-acetaminophen 5-325 mg Tablet 1 tab PO BID PRN (Reason: Pain) fluoxetine 10 mg Tablet 10 mg PO DAILY levothyroxine 25 mcg tablet Label Comments: TAKE 1 TABLET BY MOUTHEONCE DAILY lorazepam 1 mg tablet Label Comments: TAKE 1 TABLET BY MOUTHEONCE DAILY NEEDED FORPANXIETY buprenorphine 20 mcg/hour patch weekly Label Comments: apply 1 patch topically to CLEAN, DRY, AND INTACT SKIN REMOVE AND REPLACE weekly isosorbide dinitrate 30 mg tablet 30 mg PO BID (DME) handicap placcard See Rx Instructions .Route .MEDSUPPLY Qty: 1 0RF Rx Instructions: dx: debility, CHF Lifetime fenofibrate 160 mg tablet 160 mg PO DAILY Qty: 90 3RF albuterol sulfate 90 mcg/actuation HFA aerosol inhaler 2 puff inhalation Q4H PRN (Reason: shortness of breath or wheezing) Qty: 8.5 3RF rabeprazole [AcipHex] 20 mg tablet,delayed release (DR/EC) 20 mg PO DAILY Qty: 90 0RF quetiapine 200 mg tablet 200 mg PO .Four times a day Qty: 120 1RF aspirin [Adult Aspirin Regimen] 81 mg tablet,delayed release (DR/EC) 81 mg PO QDAY Qty: 90 3RF carvedilol 25 mg tablet 50 mg PO BID Qty: 360 3RF Rx Instructions: Hold for heart less than 60 or systolic blood pressure less than 100 mmHg. clonidine HCl 0.1 mg tablet 0.1 mg PO BID Qty: 180 3RF clopidogrel 75 mg tablet 75 mg PO DAILY Qty: 90 3RF nifedipine 90 mg tablet extended release 24hr 90 mg PO DAILY Qty: 90 3RF hydralazine 50 mg tablet 150 mg PO TID Qty: 810 3RF Rx Instructions: Hold for SBP less than 130 mmHg Discontinued citalopram 20 mg tablet Label Comments: take 1 tablet by mouth once daily Referrals / Follow Up: Dhaval Braden MD [Primary Care Provider] - Within 2 Weeks Disposition Disposition (needs filled in before D/C Order can be placed): Home, Self Care Charges/Coding Visit Charges Inpatient E&M: 68073 Disch Hosp >30min 10/17/22 1257 <Electronically signed by Daquan Miller DO> Cosigner Signature (if applicable): CC: Dr. Daquan Miller DO; Dr. Dhaval Braden MD~ Signed [facility] Work Phone: [phone]) 772-980906-16-[address] Miller [facility] October 17, 2022 12:54pm Note Date/Time October 17, 2022 12:4 9pm [facility] Medical Records Department [address] [place] [address] Instructions for Home/Discharge Instructions 10/17/22 1247 MR#: [id number] Acct: [id number] Name: LEIDY DC Turner Rep #:[id number] : 1970 51 From: Daquan Miller DO PCP: Dr. Dhaval Braden MD Status:AD M IN Discharge Instructions Diet Discharge Diet: Low fat / Low cholesterol Activity Discharge Activity: Return to Normal Activity Dressing / Incision Call your doctor if you observe: Fever of 101 or Higher, Shortness of breath andChest pain Follow Up Care Test Results: Test results from this visit will be discussed in further detail at your follow- up appointment, if applicable. Discharge Plan Admission Admit Date/Time: 10/14/22 01:00 Primary Reason for Your Visit: Pneumonia Attending Provider: Daquan Miller Primary Care Provider: Dhaval Braden Consulting Providers: Deandre Henson ; Miko Ramirez Instructions Additional Instructions / Restrictions: You presented with pneumonia. Overall he did much better. You will need to continue with the antibiotics as instructed. At home, you had bizarre behaviorsand this is likely compounded by the fact that you had pneumonia but also your pain medications. You noted that you have uncontrolled pain. Unfortunately, you will need to follow-up with Dr. Alegre to have this further addressed since you are already established with him. He did have a myocardial infarction due to the stress of your underlying illness. You are seen by cardiology and they felt it was due to the stress of the illness. You admitted that you were very depressed you had not been showing for the past 8 weeks. Strongly advised to follow-up with your psychiatrist for further medications adjustments, if necessary, and counseling. Discharge Orders/Prescriptions Prescriptions: New ferrous sulfate [FeroSul] 325 mg (65 mg iron) Tablet 325 mg PO DAILY@1200 Qty: 30 0RF amoxicillin-pot clavulanate 875-125 mg tablet 1 tab PO BID Qty: 8 0RF Continued zolpidem 10 mg tablet 10 mg PO QHS PRN (Reason: Sleep) acetaminophen 500 MG tablet 1,000 mg PO DAILY PRN (Reason: Pain) ibuprofen 200 MG tablet 400 - 600 mg PO DAILY PRN (Reason: Pain) hydrocodone-acetaminophen 5-325 mg Tablet 1 tab PO BID PRN (Reason: Pain) fluoxetine 10 mg Tablet 10 mg PO DAILY levothyroxine 25 mcg tablet Label Comments: TAKE 1 TABLET BY MOUTHEONCE DAILY lorazepam 1 mg tablet Label Comments: TAKE 1 TABLET BY MOUTHEONCE DAILY NEEDED FORPANXIETY buprenorphine 20 mcg/hour patch weekly Label Comments: apply 1 patch topically to CLEAN, DRY, AND INTACT SKIN REMOVE AND REPLACE weekly isosorbide dinitrate 30 mg tablet 30 mg PO BID (DME) handicap placcard See Rx Instructions .Route .MEDSUPPLY Qty: 1 0RF Rx Instructions: dx: debility, CHF Lifetime fenofibrate 160 mg tablet 160 mg PO DAILY Qty: 90 3RF albuterol sulfate 90 mcg/actuation HFA aerosol inhaler 2 puff inhalation Q4H PRN (Reason: shortness of breath or wheezing) Qty: 8.5 3RF rabeprazole [AcipHex] 20 mg tablet,delayed release (DR/EC) 20 mg PO DAILY Qty: 90 0RF quetiapine 200 mg tablet 200 mg PO .Four times a day Qty: 120 1RF aspirin [Adult Aspirin Regimen] 81 mg tablet,delayed release (DR/EC) 81 mg PO QDAY Qty: 90 3RF carvedilol 25 mg tablet 50 mg PO BID Qty: 360 3RF Rx Instructions: Hold for heart less than 60 or systolic blood pressure less than 100 mmHg. clonidine HCl 0.1 mg tablet 0.1 mg PO BID Qty: 180 3RF clopidogrel 75 mg tablet 75 mg PO DAILY Qty: 90 3RF nifedipine 90 mg tablet extended release 24hr 90 mg PO DAILY Qty: 90 3RF hydralazine 50 mg tablet 150 mg PO TID Qty: 810 3RF Rx Instructions: Hold for SBP less than 130 mmHg Discontinued citalopram 20 mg tablet Label Comments: take 1 tablet by mouth once daily Referrals / Follow Up: Dhaval Braden MD [Primary Care Provider] - Within 2 Weeks Disposition Disposition (needs filled in before D/C Order can be placed): Home, Self Care 10/17/22 1254<Electronically signed by Daquan Miller DO>Daquan Miller DO CC: Dr. Miko Ramirez MD; Dr. Deandre Henson MD; Dr. Dhaval Braden MD~ Signed [facility] Work Phone: 1([phone]) 178-761606-16-[address] Miller [facility] October 17, 2022 12:47pm Note Date/Time October 17, 2022 9:04 am [facility] Medical Records Department [address] [place] [address] Progress Note - Hospitalist 10/17/22 0901 MR#: [id number] Acct: [id number] Name: GEORGIALEIDY Turner Rep #:[id number] : 1970 51 From: Daquan Miller DO PCP: Dr. Dhaval Braden MD Status:AD M IN Location: [place] [address] Reason for Visit Reason for Visit: Diagnoses Anemia, unspecified (10/14/22) Hypokalemia (10/14/22) Depression, unspecified (10/14/22) Encephalopathy, unspecified (10/14/22) Essential (primary) hypertension (10/14/22) Pneumonia due to Streptococcus pneumoniae (10/14/22) Pneumonia, unspecified organism (10/14/22) Marfan's syndrome, unspecified (10/14/22) Shortness of breath (10/14/22) Other specified abnormalities of plasma proteins (10/14/22) Other specified abnormal findings of blood chemistry (10/14/22) Personal history of other diseases of the circulatory system (10/14/22) Presence of aortocoronary bypass graft (10/14/22) Presence of other vascular implants and grafts (10/14/22) Other specified postprocedural states (10/14/22) Subjective Subjective Still with chronic pain. No shortness of breath. Objective Data Objective Data Vital Signs: Vital Signs Temp Pulse Resp BP Pulse Ox O2 Del Method O2 Flow Rate 36.7 C 51 L 16 98/49 L 99 Nasal Cannula 3 10/17/22 05:00 10/17/22 05:07 10/17/22 05:00 10/17/22 05:07 10/17/22 05:00 10/17/22 08:46 10/17/22 08:46 FiO2 5 10/15/22 21:40 Oxygen Flow Rate (L/min) 3 Oxygen Delivery Method Nasal Cannula Weight: 118.6 kg Body Mass Index (BMI) 26.0 Intake & Output: Intake and Output for Last 24 Hours 10/15/22 10/16/22 10/17/22 23:59 23:59 23:59 Intake Total 1205 / 1460 1205.5 / 1205.5 305 / 305 Output Total 2200 / 2400 2500 / 2500 Balance -995 / -940 -1294.5 / -1294.5 305 / 305 Lab / Micro Data Result Diagrams: 10/16/22 06:18 10/16/22 06:18 Labs: Laboratory Results - last 24 hr 10/16/22 06:18: Free T4 0.85, Free T3 pg/dL 1.7 L Micro: Microbiology 10/14/22 09:04 Blood Culture (Wb) - Right Wrist Blood Culture - Preliminary No growth in 48 hours. 10/14/22 09:00 Blood Culture (Wb) - Anticubital Right Blood Culture - Preliminary No growth in 48 hours. 10/14/22 10:35 Urine, Clean Catch Legionella Antigen - Final 10/14/22 10:35 Urine, Clean Catch Streptococcus pneumoniae Antigen (M - Final Physical Exam Const alert and no apparent distress Resp normal respiratory effort, no retractions, no use of accessory muscles and clearto auscultation bilaterally Cardio regular rate GI normal to inspection, nondistended, normoactive bowel sounds, soft to palpation,non-tender and non-distended Extremity normal to inspection Assessment & Plan Assessment/Plan (1) Pneumonia: QUALIFIERS: Laterality: right Lung location: unspecified part of lung Pneumonia type: due to Pneumococcus Qualified Code(s): J13 - Pneumonia due to Streptococcus pneumoniae PLAN: Diffuse right-sided pneumonia Abx w CTX and azithromycin PEP therapy Check SCx, BCx, Strep and legionella antigens negative Will discharge with Augmentin. (2) Elevated troponin: PLAN: trending down I suspect type II NSTEMI from pneumonia Cards consult appreciated. No additional work up at this time. (3) Uncontrolled hypertension: PLAN: improved Continue carvedilol 50 BID, isosorbide 30 BID, nifedipine 90 daily, hydralazine 150 TID (4) Hypokalemia: PLAN: ongoing, continue to replace Magnesium 2.1 (5) Encephalopathy acute: PLAN: Resolved Bizarre behaviors at home where he was urinating in different areas of the house. Suspect due to pneumonia and Butrans patch. No additional work up at this time (6) Depression: PLAN: Had not showed in about 8 weeks. Pt to follow with his psychiatrist He denies suicidal ideation (7) Anemia: PLAN: down from August 2021 Iron 34, TIBC 302, ferritin 180, B12 449, folate 3.4, TSH 6.33 Check FT4, T3 Start Iron PLAN: Plan Chronic conditions: * marfan's syndrome * h/o aortic dissection s/p replair * Chronic pain: Continue with Butrans patch which is currently in place. Continue with his [place]. Follow-up with Dr. Alegre. Patient had been started on morphine. I discussed with the patient that he states he is already established with pain management and he has no new pain issues, I will not prescribe this upon discharge. He will need to follow-up with Dr. Alegre. VTE prophylaxis: LMWH Disposition: To home 10/17/22 1247 <Electronically signed by Daquan Miller DO> Cosigner Signature (if applicable): CC: ~ Signed [facility] Work Phone: [phone] 143-132006-15-[address] Miller [facility] October 16, 2022 2:04pm Note Date/Time October 16, 2022 8:33 am [facility] Medical Records Department [address] [place] [address] Progress Note - Hospitalist 10/16/22 0829 MR#: [id number] Acct: [id number] Name: LEIDY DC Rep #:[id number] : 1970 51 From: Daquan Miller DO PCP: Dr. Dhaval Braden MD Status:AD M IN Location: [place] [address] Reason for Visit Reason for Visit: Diagnoses Anemia, unspecified (10/14/22) Hypokalemia (10/14/22) Depression, unspecified (10/14/22) Encephalopathy, unspecified (10/14/22) Essential (primary) hypertension (10/14/22) Pneumonia due to Streptococcus pneumoniae (10/14/22) Pneumonia, unspecified organism (10/14/22) Marfan's syndrome, unspecified (10/14/22) Shortness of breath (10/14/22) Other specified abnormalities of plasma proteins (10/14/22) Other specified abnormal findings of blood chemistry (10/14/22) Personal history of other diseases of the circulatory system (10/14/22) Presence of aortocoronary bypass graft (10/14/22) Presence of other vascular implants and grafts (10/14/22) Other specified postprocedural states (10/14/22) Subjective Subjective says his pain is better after being put on morphine yesterday. slepts well. Objective Data Objective Data Vital Signs: Vital Signs Temp Pulse Resp BP Pulse Ox O2 Del Method O2 Flow Rate 36.7 C 56 L 18 113/52 L 99 Bi-pap 5 10/16/22 02:39 10/16/22 02:39 10/16/22 02:39 10/16/22 05:57 10/16/22 02:39 10/16/22 02:39 10/16/22 02:39 FiO2 5 10/15/22 21:40 Oxygen Flow Rate (L/min) 5 Oxygen Delivery Method Bi-pap Weight: 118.6 kg Body Mass Index (BMI) 26.0 Intake & Output: Intake and Output for Last 24 Hours 10/14/22 10/15/22 10/16/22 23:59 23:59 23:59 Intake Total 355 / 355 1205 / 1460 255 / 255 Output Total 1400 / 1400 2200 / 2400 500 / 500 Balance -1045 / -1045 -995 / -940 -245 / -245 Lab / Micro Data Result Diagrams: 10/16/22 06:18 10/16/22 06:18 Labs: Laboratory Results - last 24 hr 10/15/22 06:38: Iron 34 L, TIBC 302, Iron Saturation 11.3 L, Ferritin 180, Folate 3.40, TSH 6.33 H 10/15/22 06:38: Vitamin B12 449 10/16/22 06:18: WBC 4.7, RBC 2.77 L, Hgb 7.9 L, Hct 25.0 L, MCV 90.3, MCH 28.5, MCHC 31.6 L, RDW Std Deviation 53.1 H, RDW Coeff of Lalita 16.5 H, Plt Count 220, MPV 9.6, Immature Gran % (Auto) 1.500 H, Neut % (Auto) 66.0, Lymph % (Auto) 10.8L, [place] % (Auto) 15.6 H, Eos % (Auto) 5.5 H, Baso % (Auto) 0.6, Absolute Neuts (auto) 3.1, Absolute Lymphs (auto) 0.51 L, Nucleated RBC % 0, Anisocytosis 1+ 10/16/22 06:18: Sodium 137, Potassium 3.7, Chloride 107, Carbon Dioxide 23.0, Anion Gap 7, BUN 23 H, Creatinine 1.26, Estim Creat Clear Calc 100.89, Est GFR (MDRD) Af Amer 77, Est GFR (MDRD) Non-Af 63, BUN/Creatinine Ratio 18.3, Glucose 100, Calcium 8.2 L Micro: Microbiology 10/14/22 10:35 Urine, Clean Catch Legionella Antigen - Final 10/14/22 10:35 Urine, Clean Catch Streptococcus pneumoniae Antigen (M - Final Physical Exam Const alert and no apparent distress HEENT head/scalp atraumatic and moist oral mucous membranes Resp normal respiratory effort, no retractions, no use of accessory muscles and clearto auscultation bilaterally Cardio regular rate, regular rhythm, S1 normal heart sound and S2 normal heart sound GI normal to inspection, nondistended, normoactive bowel sounds, soft to palpation,non-tender and non-distended Extremity normal to inspection Assessment & Plan Assessment/Plan (1) Pneumonia: QUALIFIERS: Laterality: right Lung location: unspecified part of lung Pneumonia type: due to Pneumococcus Qualified Code(s): J13 - Pneumonia due to Streptococcus pneumoniae PLAN: Diffuse right-sided pneumonia Abx w CTX and azithromycin PEP therapy Check SCx, BCx, Strep and legionella antigens negative (2) Elevated troponin: PLAN: trending down I suspect type II NSTEMI from pneumonia Cards consult appreciated. No additional work up at this time. (3) Uncontrolled hypertension: PLAN: improved Continue carvedilol 50 BID, isosorbide 30 BID, nifedipine 90 daily, hydralazine 150 TID (4) Hypokalemia: PLAN: ongoing, continue to replace Magnesium 2.1 (5) Encephalopathy acute: PLAN: Resolved Bizarre behaviors at home where he was urinating in different areas of the house. Suspect due to pneumonia and Butrans patch. No additional work up at this time (6) Depression: PLAN: Had not showed in about 8 weeks. Pt to follow with his psychiatrist He denies suicidal ideation (7) Anemia: PLAN: down from August 2021 Iron 34, TIBC 302, ferritin 180, B12 449, folate 3.4, TSH 6.33 Check FT4, T3 Start Iron PLAN: Plan Chronic conditions: * marfan's syndrome * h/o aortic dissection s/p replair * Chronic pain: Continue with Butrans patch which is currently in place. Follow- up with Dr. Alegre. Started on Morphine. Will PIPO schofield. VTE prophylaxis: LMWH Disposition: medically stable for discharge. Awaiting on placement Charges/Coding Visit Charges Inpatient E&M: 82648 Subs Hosp L2 10/16/22 9355 <Electronically signed by Daquan Miller DO> Cosigner Signature (if applicable): CC: ~ Signed [facility] Work Phone: [phone]) 695-265406-14-[address] Miller [facility] October 15, 2022 2:12pm Note Date/Time October 15, 2022 8:50 am [facility] Medical Records Department [address] [place] [address] Progress Note - Hospitalist 10/15/22 0846 MR#: [id number] Acct: [id number] Name: LEIDY DC Rep #:[id number] : 1970 51 From: Daquan Miller DO PCP: Dr. Dhaval Braden MD Status:AD M IN Location: [place] [address] Reason for Visit Reason for Visit: Diagnoses Hypokalemia (10/14/22) Essential (primary) hypertension (10/14/22) Pneumonia due to Streptococcus pneumoniae (10/14/22) Pneumonia, unspecified organism (10/14/22) Marfan's syndrome, unspecified (10/14/22) Shortness of breath (10/14/22) Other specified abnormalities of plasma proteins (10/14/22) Other specified abnormal findings of blood chemistry (10/14/22) Personal history of other diseases of the circulatory system (10/14/22) Presence of aortocoronary bypass graft (10/14/22) Presence of other vascular implants and grafts (10/14/22) Other specified postprocedural states (10/14/22) Subjective Subjective Complains of pain. States he hasn't slept in days. Acknowledges that he has not showed in 8 weeks because he did not feel the need. Feels that he is on borrowedtime since his aortic dissections. Denies suicidal ideation. Does not recall urinating in different spots in the house. Objective Data Objective Data Vital Signs: Vital Signs Temp Pulse Resp BP Pulse Ox O2 Del Method O2 Flow Rate 37.3 C H 77 16 147/74 H 96 Nasal Cannula 3 10/15/22 08:39 10/15/22 08:39 10/15/22 08:39 10/15/22 08:39 10/15/22 08:39 10/15/22 08:39 10/15/22 08:39 FiO2 21 10/14/22 13:10 Oxygen Flow Rate (L/min) 3 Oxygen Delivery Method Nasal Cannula Weight: 118.6 kg Body Mass Index (BMI) 26.0 Intake & Output: Intake and Output for Last 24 Hours 10/13/22 10/14/22 10/15/22 23:59 23:59 23:59 Intake Total 355 / 355 255 / 255 Output Total 1400 / 1400 500 / 500 Balance -1045 / -1045 -245 / -245 Lab / Micro Data Result Diagrams: 10/15/22 06:38 10/15/22 06:38 Labs: Laboratory Results - last 24 hr 10/14/22 02:35: Magnesium 2.1 10/14/22 17:31: POC Glucose 121 H 10/15/22 06:38: WBC 6.3, RBC 2.81 L, Hgb 8.1 L, Hct 25.0 L, MCV 89.0, MCH 28.8, MCHC 32.4, RDW Std Deviation 52.6 H, RDW Coeff of Lalita 16.3 H, Plt Count 227, MPV9.6, Immature Gran % (Auto) 1.700 H, Neut % (Auto) 70.3 H, Lymph % (Auto) 11.7 L, [place] % (Auto) 12.2 H, Eos % (Auto) 3.5, Baso % (Auto) 0.6, Absolute Neuts (auto) 4.4, Absolute Lymphs (auto) 0.74 L, Nucleated RBC % 0 10/15/22 06:38: Sodium 136, Potassium 3.0 L, Chloride 104, Carbon Dioxide 25.0, Anion Gap 7, BUN 24 H, Creatinine 1.23, Estim Creat Clear Calc 103.35, Est GFR (MDRD) Af Amer 79, Est GFR (MDRD) Non-Af 65, BUN/Creatinine Ratio 19.5, Glucose 106, Calcium 8.0 L, Total Bilirubin 1.40 H, AST 41 H, ALT 47, Alkaline Phosphatase 40 L, Total Protein 7.0, Albumin 3.5, Globulin 3.5, Albumin/GlobulinRatio 1.0 Micro: Microbiology 10/14/22 10:35 Urine, Clean Catch Legionella Antigen - Final 10/14/22 10:35 Urine, Clean Catch Streptococcus pneumoniae Antigen (M - Final Radiography Diagnostic Testing: Radiology Impression Echocardiogram 10/14/22 11:24 Interpretation Summary The estimated ejection fraction is 70 %. Diastolic function is indeterminate. Trivial mitral valve insufficiency. The left atrium is mildly enlarged. The right atrium is mildly enlarged. Ordering Physician: Miko Ramirez Referring Physician: DHAVAL BRADEN Performed By: Ayana Zamora RCS Physical Exam Const alert and no apparent distress HEENT head/scalp atraumatic and moist oral mucous membranes Resp normal respiratory effort and no retractions Cardio regular rate, regular rhythm, S1 normal heart sound and S2 normal heart sound GI normal to inspection, nondistended, normoactive bowel sounds, soft to palpation,non-tender and non-distended Extremity normal to inspection Neuro moves all extremities Sensorium / Orientation: awake and alert Assessment & Plan Assessment/Plan (1) Pneumonia: QUALIFIERS: Laterality: right Lung location: unspecified part of lung Pneumonia type: due to Pneumococcus Qualified Code(s): J13 - Pneumonia due to Streptococcus pneumoniae PLAN: Diffuse right-sided pneumonia Abx w CTX and azithromycin PEP therapy Check SCx, BCx, Strep and legionella antigens negative (2) Elevated troponin: PLAN: trending down I suspect type II NSTEMI from pneumonia Cards consult appreciated. No additional work up at this time. (3) Uncontrolled hypertension: PLAN: improved Continue carvedilol 50 BID, isosorbide 30 BID, nifedipine 90 daily, hydralazine 150 TID (4) Hypokalemia: PLAN: ongoing, continue to replace Magnesium 2.1 (5) Encephalopathy acute: PLAN: Resolved Bizarre behaviors at home where he was urinating in different areas of the house. Suspect due to pneumonia and Butrans patch. No additional work up at this time (6) Depression: PLAN: Had not showed in about 8 weeks. Pt to follow with his psychiatrist He denies suicidal ideation (7) Anemia: PLAN: down from August 2021 check iron, TIBC, ferritin, B12, folate, TSH PLAN: Plan Chronic conditions: * marfan's syndrome * h/o aortic dissection s/p replair * Chronic pain: Continue with Butrans patch which is currently in place. Follow- up with Dr. Alegre VTE prophylaxis: LMWH Charges/Coding Visit Charges Inpatient E&M: 71010 Subs Hosp L2 10/15/22 1412 <Electronically signed by Daquan Miller DO> Cosigner Signature (if applicable): CC: ~ Signed [facility] Work Phone: [phone]) 952-941506-14-[address] Rea [facility] October 15, 2022 9:03am Note Date/Time October 15, 2022 9:03 am [facility] Medical Records Department [address] [place] [address] Progress Note - Cardiology 10/15/22 0900 MR#: [id number] Acct: [id number] Name: LEIDY DC Rep #:[id number] : 1970 51 From: Eduard Rea MD PCP: Dr. Dhaval Braden MD Status:AD M IN Location: [place] [address] Subjective Subjective The patient was seen and evaluated. Appears to be stable. Objective Data Vital Signs: Vital Signs Temp Pulse Resp BP Pulse Ox O2 Del Method O2 Flow Rate 99.2 F H 77 16 147/74 H 96 Nasal Cannula 3 10/15/22 08:39 10/15/22 08:39 10/15/22 08:39 10/15/22 08:39 10/15/22 08:39 10/15/22 08:39 10/15/22 08:39 FiO2 21 10/14/22 13:10 Oxygen Flow Rate (L/min) 3 Oxygen Delivery Method Nasal Cannula Weight: 261 lb 7.492 oz Body Mass Index (BMI) 26.0 Intake & Output: Intake and Output for Last 24 Hours 10/13/22 10/14/22 10/15/22 23:59 23:59 23:59 Intake Total 355 / 355 255 / 255 Output Total 1400 / 1400 500 / 500 Balance -1045 / -1045 -245 / -245 Lab / Micro Data Result Diagrams: 10/15/22 06:38 10/15/22 06:38 Labs: Laboratory Results - last 24 hr 10/14/22 17:31: POC Glucose 121 H 10/15/22 06:38: WBC 6.3, RBC 2.81 L, Hgb 8.1 L, Hct 25.0 L, MCV 89.0, MCH 28.8, MCHC 32.4, RDW Std Deviation 52.6 H, RDW Coeff of Lalita 16.3 H, Plt Count 227, MPV9.6, Immature Gran % (Auto) 1.700 H, Neut % (Auto) 70.3 H, Lymph % (Auto) 11.7 L, [place] % (Auto) 12.2 H, Eos % (Auto) 3.5, Baso % (Auto) 0.6, Absolute Neuts (auto) 4.4, Absolute Lymphs (auto) 0.74 L, Nucleated RBC % 0 10/15/22 06:38: Sodium 136, Potassium 3.0 L, Chloride 104, Carbon Dioxide 25.0, Anion Gap 7, BUN 24 H, Creatinine 1.23, Estim Creat Clear Calc 103.35, Est GFR (MDRD) Af Amer 79, Est GFR (MDRD) Non-Af 65, BUN/Creatinine Ratio 19.5, Glucose 106, Calcium 8.0 L, Total Bilirubin 1.40 H, AST 41 H, ALT 47, Alkaline Phosphatase 40 L, Total Protein 7.0, Albumin 3.5, Globulin 3.5, Albumin/Globulin Ratio 1.0 Micro: Microbiology 10/14/22 10:35 Urine, Clean Catch Legionella Antigen - Final 10/14/22 10:35 Urine, Clean Catch Streptococcus pneumoniae Antigen (M - Final Cardiology Labs/Tests 10/15/22 06:38: WBC 6.3, RBC 2.81 L, Hgb 8.1 L, Hct 25.0 L, MCV 89.0, MCH 28.8, MCHC 32.4, Plt Count 227, MPV 9.6, Immature Gran % (Auto) 1.700 H, Neut % (Auto)70.3 H, Lymph % (Auto) 11.7 L, [place] % (Auto) 12.2 H, Eos % (Auto) 3.5, Baso % (Auto) 0.6, Absolute Neuts (auto) 4.4, Nucleated RBC % 0 10/15/22 06:38: Sodium 136, Potassium 3.0 L, Chloride 104, Carbon Dioxide 25.0, Anion Gap 7, BUN 24 H, Creatinine 1.23, Est GFR (MDRD) Af Amer 79, Est GFR (MDRD) Non- Af 65, BUN/Creatinine Ratio 19.5, Glucose 106, Calcium 8.0 L, Total Bilirubin 1.40 H Rhythm: EKG: ECHO: Stress Test: Cardiac Cath: PCI: CT Surgery: Holter monitor: EPS: PPM: CXR: Chest CT Scan: Radiography Diagnostic Testing: Radiology Impression Echocardiogram 10/14/22 11:24 Interpretation Summary The estimated ejection fraction is 70 %. Diastolic function is indeterminate. Trivial mitral valve insufficiency. The left atrium is mildly enlarged. The right atrium is mildly enlarged. Ordering Physician: Miko Ramirez Referring Physician: DHAVAL BRADEN Performed By: Ayana Zamora RCS Physical Exam Const alert and oriented x3 HEENT normocephalic Eyes no scleral icterus Resp normal respiratory effort Cardio regular rate Extremity no pedal edema Skin no rashes or lesions noted Assessment & Plan Assessment/Plan (1) Elevated brain natriuretic peptide (BNP) level: PLAN: The patient appears to have diastolic dysfunction. At this time I will recommend that we continue managing him with medical therapy. No reason for intervention at this time his echocardiogram also demonstrated preserved ejection fraction with mild biatrial enlargement. (2) Elevated troponin: PLAN: Patient's recent angiogram was reviewed. Troponin has been elevated in the indeterminate range. This does not appear to be related to his coronary artery disease. Since his CABG patient has had 2 coronary angiogram's which didnot reveal any significant CAD that needed intervention. We will continue to monitor this without any further intervention at this time. (3) Hx of ascending aorta replacement: PLAN: This appears to be stable and we will keep his blood pressure under good control. (4) H/O coronary artery bypass surgery: PLAN: No evidence of plaque rupture or ischemia noted. His last angiogram was reviewed. (5) History of mitral valve repair: PLAN: He has a history of mitral valve repair. This appears to be stable based on the last echocardiogram. (6) Marfan syndrome: PLAN: Stable with no progression. 10/15/22 0903 <Electronically signed by Eduard Rea MD> Cosigner Signature (if applicable): CC: ~ Signed [facility] Work Phone: 1(709) 343-140506-13-[address] Ramirez [facility] October 14, 2022 4:08pm Note Date/Time October 14, 2022 3:59 pm [facility] Medical Records Department [address] [place] [address] Consultation - Cardiology 10/14/22 1556 MR#: [id number] Acct: [id number] Name: LEIDY DC Rep #:[id number] : 1970 51 From: Miko guevara MD PCP: Dr. Dhaval Braden MD Status:AD M [facility] Assessment & Plan Assessment/Plan (1) Elevated brain natriuretic peptide (BNP) level: PLAN: Patient has a right-sided infiltrate and elevated pulmonary pressures thatcould be related to underlying pneumonia. Last echo in our system reveals normal pulmonary pressures. This could explain patient's elevated BNP. He has preserved systolic function. Diastolic function is indeterminate. He could have a component of diastolic dysfunction. From a volume standpoint he appears to be euvolemic. At this time treatment of the underlying pneumonia may be all that is needed. (2) Elevated troponin: PLAN: Patient's recent angiogram was reviewed. Troponin has been elevated in the indeterminate range. This does not appear to be related to his coronary artery disease. Since his CABG patient has had 2 coronary angiogram's which didnot reveal any significant CAD that needed intervention. We will continue to monitor this without any further intervention at this time. (3) Hx of ascending aorta replacement: (4) H/O coronary artery bypass surgery: (5) History of mitral valve repair: (6) Marfan syndrome: HPI Consult Data Date of Consult: 10/14/22 HPI Narrative Reason for Consultation: Elevated troponin, shortness of breath, altered mental status HPI Narrative: LEIDY DC, is a 51 M who presents with altered mental status. He also had some shortness of breath. CT chest rule out dissection but patient was found tohave right-sided pneumonia. He is not a great historian. He does deny chest pain. He has a history of Marfan's syndrome and hypertension who presented with a dissecting aortic aneurysm in 2010.? He underwent a valve sparing aortic root replacement with reimplantation of the coronary arteries and the aortic valve.? This is known as the Niels's procedure.? He had a 32 mm Valsalva Dacron graft and coronary bypass surgery of the right coronary artery.? He also underwent an ascending aorta and arch repair with a 28 mm Dacron graft, and frozen elephant trunk procedure with direct placement of a 34 x 10 mm Emerson-Jacob thoracic stent graft.? He also had mitral valve repair and plication of the anterior mitral valve leaflet.? In 2015 he was transferred to the [facility] with chest discomfort he underwent a left heart catheterization which demonstrated patent coronary arteries, left ventricular systolic function was normal and his repaired mitral valve as well as the reimplanted aortic valve were noted to be competent. In December 2020 he underwent coronary angiography again which revealed mild [place] coronary artery disease and patent SVG to RCA (patent 1 outof 1 bypass grafts). During this admission his troponin is mildly elevated, BNP is elevated, hemoglobin has been slowly dropping and is now between 8 and 9. [facility] Medical History Abnormal stress test Acute maxillary sinusitis, unspecified Apnea, sleep Dissecting aneurysm of ascending aorta Dissection of vertebral artery Essential (primary) hypertension (05/20/18) GERD (gastroesophageal reflux disease) Hyperkalemia Hyperlipidemia Hypertensive urgency Hypoxia Infection of external auditory canal Marfans syndrome Nonobstructive atherosclerosis of coronary artery NEO (obstructive sleep apnea) Uncontrolled hypertension Home Medications acetaminophen 500 mg tablet 1,000 mg PO DAILY PRN Pain 05/19/18 [History Last Taken 05/19/18] ibuprofen 200 mg tablet 400 - 600 mg PO DAILY PRN Pain 05/19/18 [History Last Taken 05/19/18] zolpidem 10 mg tablet 10 mg PO QHS PRN Sleep 01/18/21 [History Last Taken 08/30/21] handicap placcard #1 ea 03/15/21 [Rx Last Taken Unknown] fenofibrate 160 mg tablet 160 mg PO DAILY #90 tabs 09/18/21 [Rx Last Taken Unknown] albuterol sulfate 90 mcg/actuation aerosol inhaler 2 puff inhalation Q4H PRN shortness of breath or wheezing #8.5 grams 10/03/21 [Rx Last Taken Unknown] rabeprazole 20 mg tablet,delayed release (AcipHex) 20 mg PO DAILY stomach #90 tabs 07/17/22 [Rx Last Taken Unknown] quetiapine 200 mg tablet 200 mg PO .Four times a day sleep #120 tabs 09/01/22 [Rx Last Taken Unknown] aspirin 81 mg tablet,delayed release (Adult Aspirin Regimen) 81 mg PO QDAY #90 tabs 09/16/22 [Rx Last Taken Unknown] carvedilol 25 mg tablet 50 mg PO BID #360 tabs 09/16/22 [Rx Last Taken Unknown] clonidine HCl 0.1 mg tablet 0.1 mg PO BID blood pressure #180 tabs 09/16/22 [Rx Last Taken Unknown] clopidogrel 75 mg tablet 75 mg PO DAILY heart health #90 tabs 09/16/22 [Rx Last Taken Unknown] hydralazine 50 mg tablet 150 mg PO TID #810 tabs 09/16/22 [Rx Last Taken Unknown] nifedipine 90 mg tablet,extended release 24 hr 90 mg PO DAILY BP #90 tabs 09/16/22 [Rx Last Taken Unknown] buprenorphine 20 mcg/hour weekly transdermal patch 10/13/22 [History Last Taken Unknown] citalopram 20 mg tablet mg 10/13/22 [History Last Taken Unknown] fluoxetine 10 mg tablet 10 mg PO DAILY 10/13/22 [History Last Taken Unknown] hydrocodone-acetaminophen 5-325mg 5mg-325mg 1 tab PO BID PRN Pain 10/13/22 [History Last Taken Unknown] isosorbide dinitrate 30 mg tablet 30 mg PO BID blood pressure 10/13/22 [History Last Taken Unknown] levothyroxine 25 mcg tablet mcg 10/13/22 [History Last Taken Unknown] lorazepam 1 mg tablet mg 10/13/22 [History Last Taken Unknown] Allergy/AdvReac Type Severity Reaction Status Date / Time ciprofloxacin [From [facility]] Allergy Rash Verified 10/13/22 19:47 ciprofloxacin HCl Allergy Rash Verified 10/13/22 19:47 [From Cipro] sulfamethoxazole Allergy Rash Verified 10/13/22 19:47 [From Bactrim] tramadol Allergy Itching Verified 10/13/22 19:47 trimethoprim [From Bactrim] Allergy Rash Verified 10/13/22 19:47 Family History Son Marfans syndrome Daughter Marfans syndrome Father Hypertension Grandfather Heart disease Myocardial infarction CVA (cerebral vascular accident) Grandmother Heart disease Surgical History H/O coronary artery bypass surgery (03/08/11) History of hand surgery History of left heart catheterization (12/14/20) History of mitral valve repair (03/08/11) History of open reduction and internal fixation (ORIF) procedure (2016) History of surgical fusion joint History of tonsillectomy Hx of ascending aorta replacement (03/08/11) Social History household members: spouse Smoking Status: Never smoker alcohol intake: current alcohol intake frequency: a few times a month substance use type: does not use Physical Exam Const alert and oriented x3 HEENT normocephalic Eyes no scleral icterus Resp normal respiratory effort Cardio regular rate Extremity no pedal edema Skin no rashes or lesions noted Risk Stratification Risk Stratification Applicable: No Charges/Coding Visit Charges Inpatient E&M: 20695 Init Hosp L2 Objective Data Vital Signs: Vital Signs Temp Pulse Resp BP Pulse Ox O2 Del Method O2 Flow Rate 98.0 F 50 L 14 113/64 94 CPAP 6 10/14/22 15:03 10/14/22 15:03 10/14/22 15:03 10/14/22 15:03 10/14/22 15:03 10/14/22 15:03 10/14/22 15:03 FiO2 21 10/14/22 13:10 Oxygen Flow Rate (L/min) 6 Oxygen Delivery Method CPAP Weight: 261 lb 7.492 oz Body Mass Index (BMI) 26.0 Intake & Output: Intake and Output for Last 24 Hours 10/12/22 10/13/2223 23:59 23:59 23:59 Intake Total 305 / 305 Output Total 500 / 500 Balance -195 / -195 Lab / Micro Data Result Diagrams: 10/14/22 02:35 10/14/22 02:35 Labs: Laboratory Results - last 24 hr 10/13/22 20:44: WBC 8.8, RBC 3.09 L, Hgb 8.8 L, Hct 27.6 L, MCV 89.3, MCH 28.5, MCHC 31.9 L, RDW Std Deviation 52.2 H, RDW Coeff of Lalita 16.1 H, Plt Count 230, MPV 10.5, Immature Gran % (Auto) 2.200 H, Neut % (Auto) 76.9 H, Lymph % (Auto) 7.0 L, [place] % (Auto) 13.5 H, Eos % (Auto) 0.1, Baso % (Auto) 0.3, Absolute Neuts(auto) 6.8, Absolute Lymphs (auto) 0.62 L, Nucleated RBC % 0 10/13/22 20:44: Sodium 140, Potassium 3.2 L, Chloride 106, Carbon Dioxide 26.0, Anion Gap 8, BUN 21 H, Creatinine 1.39 H, Estim Creat Clear Calc 75.46, Est GFR (MDRD) Af Amer 69, Est GFR (MDRD) Non-Af 57 L, BUN/Creatinine Ratio 15.1, Glucose 130 H, Calcium 9.1, Total Bilirubin 1.90 H, AST 69 H, ALT 61, Alkaline Phosphatase 42 L, Troponin I High Sens 159 H*, Total Protein 8.1, Albumin 4.1, Globulin 4.0, Albumin/Globulin Ratio 1.0 10/13/22 20:44: Ammonia 24.0, B-Natriuretic Peptide 1270.3 H 10/13/22 20:44: Lactic Acid 1.3 10/13/22 21:30: Urine Color Yellow, Urine Clarity Clear, Urine pH 6.0, Ur Specific [place] 1.015, Urine Protein 500 H, Urine Glucose (UA) Normal, Urine Ketones 5 H, Urine Occult Blood 150 H, Urine Nitrite Negative, Urine Bilirubin 1H, Urine Urobilinogen 12 H, Ur Leukocyte Esterase 25 H, Urine RBC 0-5 SEEN, Urine WBC 0-5 SEEN, Ur Squamous Epith Cells 0 SEEN, Urine Bacteria 0 SEEN, UrineMucus 0 SEEN 10/14/22 00:50: Troponin I High Sens 144 H* 10/14/22 02:35: WBC 9.4, RBC 2.89 L, Hgb 8.3 L, Hct 26.3 L, MCV 91.0, MCH 28.7, MCHC 31.6 L, RDW Std Deviation 53.1 H, RDW Coeff of Lalita 16.1 H, Plt Count 200, MPV 10.4, Immature Gran % (Auto) 1.800 H, Neut % (Auto) 79.0 H, Lymph % (Auto) 5.9 L, [place] % (Auto) 12.8 H, Eos % (Auto) 0.1, Baso % (Auto) 0.4, Absolute Neuts(auto) 7.4, Absolute Lymphs (auto) 0.55 L, Nucleated RBC % 0.3 10/14/22 02:35: Sodium 139, Potassium 3.2 L, Chloride 107, Carbon Dioxide 24.0, Anion Gap 8, BUN 21 H, Creatinine 1.31 H, Estim Creat Clear Calc 97.04, Est GFR (MDRD) Af Amer 73, Est GFR (MDRD) Non-Af 61, BUN/Creatinine Ratio 16.0, Glucose 153 H, Calcium 8.7 10/14/22 02:35: Troponin I High Sens 137 H* 10/14/22 02:35: Magnesium 2.1 Micro: Microbiology 10/14/22 10:35 Urine, Clean Catch Legionella Antigen - Final 10/14/22 10:35 Urine, Clean Catch Streptococcus pneumoniae Antigen (M - Final ABG Data ABG results: ABG 10/13/22 20:41 Specimen Type ART Sample Site R Radial pH 7.47 H Bicarbonate Actual 24.8 Total CO2 26 Base Excess 1 O2 Saturation 96 ABG pCO2 34.4 L ABG pO2 78 Kyler Test Positive O2 Delivery Device Cannula Liter Flow 4.0 Cardiology Labs/Tests 10/13/22 20:41: pH 7.47 H, Bicarbonate Actual 24.8, Base Excess 1, O2 [id number], ABG pCO2 34.4 L, ABG pO2 78, Kyler Test Positive 10/13/22 20:44: WBC 8.8, RBC 3.09 L, Hgb 8.8 L, Hct 27.6 L, MCV 89.3, MCH 28.5, MCHC 31.9 L, Plt Count 230, MPV 10.5, Immature Gran % (Auto) 2.200 H, Neut % (Auto) 76.9 H, Lymph % (Auto) 7.0 L, [place] % (Auto) 13.5 H, Eos % (Auto) 0.1, Baso % (Auto) 0.3, Absolute Neuts (auto) 6.8, Nucleated RBC % 0 10/13/22 20:44: Sodium 140, Potassium 3.2 L, Chloride 106, Carbon Dioxide 26.0, Anion Gap 8, BUN 21 H, Creatinine 1.39 H, Est GFR (MDRD) Af Amer 69, Est GFR (MDRD) Non-Af 57 L, BUN/Creatinine Ratio 15.1, Glucose 130 H, Calcium 9.1, TotalBilirubin 1.90 H 10/13/22 20:44: B-Natriuretic Peptide 1270.3 H 10/13/22 20:44: Lactic Acid 1.3 10/13/22 21:30: Urine Color Yellow, Urine Clarity Clear, Urine pH 6.0, Ur Specific [place] 1.015, Urine Protein 500 H, Urine Glucose (UA) Normal, Urine Ketones 5 H, Urine Occult Blood 150 H, Urine Nitrite Negative, Urine Bilirubin 1H, Urine Urobilinogen 12 H, Ur Leukocyte Esterase 25 H, Urine RBC 0-5 SEEN, Urine WBC 0-5 SEEN 10/14/22 02:35: WBC 9.4, RBC 2.89 L, Hgb 8.3 L, Hct 26.3 L, MCV 91.0, MCH 28.7, MCHC 31.6 L, Plt Count 200, MPV 10.4, Immature Gran % (Auto) 1.800 H, Neut % (Auto) 79.0 H, Lymph % (Auto) 5.9 L, [place] % (Auto) 12.8 H, Eos % (Auto) 0.1, Baso % (Auto) 0.4, Absolute Neuts (auto) 7.4, Nucleated RBC % 0.3 10/14/22 02:35: Sodium 139, Potassium 3.2 L, Chloride 107, Carbon Dioxide 24.0, Anion Gap 8, BUN 21 H, Creatinine 1.31 H, Est GFR (MDRD) Af Amer 73, Est GFR (MDRD) Non-Af 61, BUN/Creatinine Ratio 16.0, Glucose 153 H, Calcium 8.7 10/14/22 02:35: Magnesium 2.1 Rhythm: EKG: ECHO: Stress Test: Cardiac Cath: PCI: CT Surgery: Holter monitor: EPS: PPM: CXR: Chest CT Scan: Radiography Diagnostic Testing: Radiology Impression Chest X-Ray 10/13/22 20:50 IMPRESSION: Suggestion of mild asymmetric diffuse pulmonary edema. Cardiomegaly. Electronically Signed: Fredy Salas MD at 21:21 EDT , Chest CTA 10/13/22 21:56 IMPRESSION: 1. Multilobar pulmonary airspace disease/infiltrate within right lung, with trace right pleural effusion. 2. Stable postop changes and aneurysmal dilatation of thoracic aorta with small chronic intramural ulcer at level of diaphragmatic hiatus. No acute aortic dissection, rupture or periaortic hematoma. 3. Stable cardiomegaly. 4. Stable hepatosplenomegaly with hepatic and pancreatic steatosis. Electronically Signed: Isaak Byrd MD at 23:54 EDT , Echocardiogram 10/14/22 11:24 Interpretation Summary The estimated ejection fraction is 70 %. Diastolic function is indeterminate. Trivial mitral valve insufficiency. The left atrium is mildly enlarged. The right atrium is mildly enlarged. Ordering Physician: Miko Ramirez Referring Physician: DHAVAL BRADEN Performed By: Ayana Zamora RCS 10/14/22 1608 <Electronically signed by Miko Ramirez MD> Cosigner Signature (if applicable): CC: Dr. Miko Ramirez MD; Dr. Deandre Henson MD; Dr. Dhaval Braden MD~ Signed [facility] Work Phone: [phone]) 130-402006-13-[address] Miller [facility] October 14, 2022 2:55pm Note Date/Time October 14, 2022 8:33 am [facility] Medical Records Department [address] [place] [address] Progress Note - Hospitalist 10/14/22 0828 MR#: [id number] Acct: [id number] Name: LEIDY DC Rep #:[id number] : 1970 51 From: Daquan Miller DO PCP: Dr. Dhaval Braden MD Status:AD IN Location: [place] [address] Reason for Visit Reason for Visit: Diagnoses Essential (primary) hypertension (10/14/22) Pneumonia, unspecified organism (10/14/22) Marfan's syndrome, unspecified (10/14/22) Shortness of breath (10/14/22) Other specified abnormalities of plasma proteins (10/14/22) Personal history of other diseases of the circulatory system (10/14/22) Subjective Subjective Opens eyes but does not wish to interact. Objective Data Objective Data Vital Signs: Vital Signs Temp Pulse Resp BP Pulse Ox O2 Del Method O2 Flow Rate 36.8 C 60 18 133/66 H 94 Nasal Cannula 3 10/14/22 04:13 10/14/22 04:13 10/14/22 04:13 10/14/22 04:13 10/14/22 04:30 10/14/22 04:30 10/14/22 04:30 Oxygen Flow Rate (L/min) 3 Oxygen Delivery Method Nasal Cannula Weight: 118.6 kg Body Mass Index (BMI) 26.0 Intake & Output: Intake and Output for Last 24 Hours 10/12/22 10/13/22 10/14/22 23:59 23:59 23:59 Intake Total 305 / 305 Output Total 200 / 200 Balance 105 / 105 Lab / Micro Data Result Diagrams: 10/14/22 02:35 10/14/22 02:35 Labs: Laboratory Results - last 24 hr 10/13/22 20:44: WBC 8.8, RBC 3.09 L, Hgb 8.8 L, Hct 27.6 L, MCV 89.3, MCH 28.5, MCHC 31.9 L, RDW Std Deviation 52.2 H, RDW Coeff of Lalita 16.1 H, Plt Count 230, MPV 10.5, Immature Gran % (Auto) 2.200 H, Neut % (Auto) 76.9 H, Lymph % (Auto) 7.0 L, [place] % (Auto) 13.5 H, Eos % (Auto) 0.1, Baso % (Auto) 0.3, Absolute Neuts(auto) 6.8, Absolute Lymphs (auto) 0.62 L, Nucleated RBC % 0 10/13/22 20:44: Sodium 140, Potassium 3.2 L, Chloride 106, Carbon Dioxide 26.0, Anion Gap 8, BUN 21 H, Creatinine 1.39 H, Estim Creat Clear Calc 75.46, Est GFR (MDRD) Af Amer 69, Est GFR (MDRD) Non-Af 57 L, BUN/Creatinine Ratio 15.1, Glucose 130 H, Calcium 9.1, Total Bilirubin 1.90 H, AST 69 H, ALT 61, Alkaline Phosphatase 42 L, Troponin I High Sens 159 H*, Total Protein 8.1, Albumin 4.1, Globulin 4.0, Albumin/Globulin Ratio 1.0 10/13/22 20:44: Ammonia 24.0, B-Natriuretic Peptide 1270.3 H 10/13/22 20:44: Lactic Acid 1.3 10/13/22 21:30: Urine Color Yellow, Urine Clarity Clear, Urine pH 6.0, Ur Specific [place] 1.015, Urine Protein 500 H, Urine Glucose (UA) Normal, Urine Ketones 5 H, Urine Occult Blood 150 H, Urine Nitrite Negative, Urine Bilirubin 1H, Urine Urobilinogen 12 H, Ur Leukocyte Esterase 25 H, Urine RBC 0-5 SEEN, Urine WBC 0-5 SEEN, Ur Squamous Epith Cells 0 SEEN, Urine Bacteria 0 SEEN, UrineMucus 0 SEEN 10/14/22 00:50: Troponin I High Sens 144 H* 10/14/22 02:35: WBC 9.4, RBC 2.89 L, Hgb 8.3 L, Hct 26.3 L, MCV 91.0, MCH 28.7, MCHC 31.6 L, RDW Std Deviation 53.1 H, RDW Coeff of Lalita 16.1 H, Plt Count 200, MPV 10.4, Immature Gran % (Auto) 1.800 H, Neut % (Auto) 79.0 H, Lymph % (Auto) 5.9 L, [place] % (Auto) 12.8 H, Eos % (Auto) 0.1, Baso % (Auto) 0.4, Absolute Neuts(auto) 7.4, Absolute Lymphs (auto) 0.55 L, Nucleated RBC % 0.3 10/14/22 02:35: Sodium 139, Potassium 3.2 L, Chloride 107, Carbon Dioxide 24.0, Anion Gap 8, BUN 21 H, Creatinine 1.31 H, Estim Creat Clear Calc 97.04, Est GFR (MDRD) Af Amer 73, Est GFR (MDRD) Non-Af 61, BUN/Creatinine Ratio 16.0, Glucose 153 H, Calcium 8.7 10/14/22 02:35: Troponin I High Sens 137 H* ABG Data ABG results: ABG 10/13/22 20:41 Specimen Type ART Sample Site R Radial pH 7.47 H Bicarbonate Actual 24.8 Total CO2 26 Base Excess 1 O2 Saturation 96 ABG pCO2 34.4 L ABG pO2 78 Kyler Test Positive O2 Delivery Device Cannula Liter Flow 4.0 Radiography Diagnostic Testing: Radiology Impression Chest X-Ray 10/13/22 20:50 IMPRESSION: Suggestion of mild asymmetric diffuse pulmonary edema. Cardiomegaly. Electronically Signed: Fredy Salas MD at 21:21 EDT , Chest CTA 10/13/22 21:56 IMPRESSION: 1. Multilobar pulmonary airspace disease/infiltrate within right lung, with trace right pleural effusion. 2. Stable postop changes and aneurysmal dilatation of thoracic aorta with small chronic intramural ulcer at level of diaphragmatic hiatus. No acute aortic dissection, rupture or periaortic hematoma. 3. Stable cardiomegaly. 4. Stable hepatosplenomegaly with hepatic and pancreatic steatosis. Electronically Signed: Isaak Byrd MD at 23:54 EDT , Physical Exam Const Constitutional Narrative: On CPAP. Opens eyes to interaction but does not engage with me beyond that. Resp normal respiratory effort, no retractions, no use of accessory muscles and clearto auscultation bilaterally Cardio regular rate, regular rhythm, S1 normal heart sound and S2 normal heart sound GI normal to inspection, nondistended, normoactive bowel sounds, soft to palpation,non-tender and non-distended Extremity normal to inspection Neuro oriented x3 and moves all extremities Psych affect normal Assessment & Plan Assessment/Plan (1) Pneumonia: QUALIFIERS: Laterality: right Lung location: unspecified part of lung Pneumonia type: due to Pneumococcus Qualified Code(s): J13 - Pneumonia due to Streptococcus pneumoniae PLAN: Diffuse right-sided pneumonia Abx w CTX and azithromycin PEP therapy Check SCx, BCx, Strep and legionella antigens (2) Elevated troponin: PLAN: trending down I suspect type II NSTEMI from pneumonia Cards consult (3) Uncontrolled hypertension: PLAN: improved Continue carvedilol 50 BID, isosorbide 30 BID, nifedipine 90 daily, hydralazine 150 TID (4) Hypokalemia: PLAN: replace Magnesium 2.1 PLAN: Plan Chronic conditions: * marfan's syndrome * h/o aortic dissection s/p replair VTE prophylaxis: LMWH Charges/Coding Visit Charges Inpatient E&M: 86021 Subs Hosp L2 10/14/22 0697 <Electronically signed by Daquan Miller DO> Cosigner Signature (if applicable): CC: ~ Signed [facility] Work Phone: 1(389) 381-352906-13-2023 History and physical note Author Dr. Henson [facility] October 14, 2022 1:00am Note Date/Time October 14, 2022 1:00 am [facility] Medical Records Department [address] [place] [id number] History & Physical Exam 10/14/22 0051 MR#: [id number] Acct: [id number] Name: LEIDY DC Rep #:[id number] : 1970 51 From: Deandre Henson MD PCP: Dr. Dhaval Braden MD Status:AD M IN Location: [facility] [id number] HPI - General General Date of Admission: 10/14/22 Date of Service: 10/14/22 Chief Complaint: Confusion HPI Narrative LEIDY DC, is a 51 M who presents to the emergency room with chief complaint of confusion. Patient has significant past medical history of Marfan syndrome and status post aortic dissection in the past which has been repaired. Patient complains of shortness of breath and chronic pain. Currently patient is a poor historian. CT scan is negative for acute dissection of the aorta however there is infiltrative pneumonia seen. Troponin is also elevated 159. Patient currently denies any chest pain, fever or chills, or nausea or vomiting. Patient will be admitted to progressive care unit and cardiac enzymes will be cycled per conversation between ER physician and cardiology. Antibiotics will be started due to infiltrative pneumonia seen on CT scan. [facility] Medical History Abnormal stress test Acute maxillary sinusitis, unspecified Apnea, sleep Dissecting aneurysm of ascending aorta Dissection of vertebral artery Essential (primary) hypertension (05/20/18) GERD (gastroesophageal reflux disease) Hyperkalemia Hyperlipidemia Hypertensive urgency Hypoxia Infection of external auditory canal Marfans syndrome Nonobstructive atherosclerosis of coronary artery NEO (obstructive sleep apnea) Uncontrolled hypertension Home Medications acetaminophen 500 mg tablet 1,000 mg PO DAILY PRN Pain 05/19/18 [History Last Taken 05/19/18] ibuprofen 200 mg tablet 400 - 600 mg PO DAILY PRN Pain 05/19/18 [History Last Taken 05/19/18] zolpidem 10 mg tablet 10 mg PO QHS PRN Sleep 01/18/21 [History Last Taken 08/30/21] handicap placcard #1 ea 03/15/21 [Rx Last Taken Unknown] fenofibrate 160 mg tablet 160 mg PO DAILY #90 tabs 09/18/21 [Rx Last Taken Unknown] albuterol sulfate 90 mcg/actuation aerosol inhaler 2 puff inhalation Q4H PRN shortness of breath or wheezing #8.5 grams 10/03/21 [Rx Last Taken Unknown] rabeprazole 20 mg tablet,delayed release (AcipHex) 20 mg PO DAILY stomach #90 tabs 07/17/22 [Rx Last Taken Unknown] quetiapine 200 mg tablet 200 mg PO .Four times a day sleep #120 tabs 09/01/22 [Rx Last Taken Unknown] aspirin 81 mg tablet,delayed release (Adult Aspirin Regimen) 81 mg PO QDAY #90 tabs 09/16/22 [Rx Last Taken Unknown] carvedilol 25 mg tablet 50 mg PO BID #360 tabs 09/16/22 [Rx Last Taken Unknown] clonidine HCl 0.1 mg tablet 0.1 mg PO BID blood pressure #180 tabs 09/16/22 [Rx Last Taken Unknown] clopidogrel 75 mg tablet 75 mg PO DAILY heart health #90 tabs 09/16/22 [Rx Last Taken Unknown] hydralazine 50 mg tablet 150 mg PO TID #810 tabs 09/16/22 [Rx Last Taken Unknown] nifedipine 90 mg tablet,extended release 24 hr 90 mg PO DAILY BP #90 tabs 09/16/22 [Rx Last Taken Unknown] buprenorphine 20 mcg/hour weekly transdermal patch 10/13/22 [History Last Taken Unknown] citalopram 20 mg tablet mg 10/13/22 [History Last Taken Unknown] fluoxetine 10 mg tablet 10 mg PO DAILY 10/13/22 [History Last Taken Unknown] hydrocodone-acetaminophen 5-325mg 5mg-325mg 1 tab PO BID PRN Pain 10/13/22 [History Last Taken Unknown] isosorbide dinitrate 30 mg tablet 30 mg PO BID blood pressure 10/13/22 [History Last Taken Unknown] levothyroxine 25 mcg tablet mcg 10/13/22 [History Last Taken Unknown] lorazepam 1 mg tablet mg 10/13/22 [History Last Taken Unknown] Allergy/AdvReac Type Severity Reaction Status Date / Time ciprofloxacin [From Cipro] Allergy Rash Verified 10/13/22 19:47 ciprofloxacin HCl Allergy Rash Verified 10/13/22 19:47 [From Cipro] sulfamethoxazole Allergy Rash Verified 10/13/22 19:47 [From Bactrim] tramadol Allergy Itching Verified 10/13/22 19:47 trimethoprim [From Bactrim] Allergy Rash Verified 10/13/22 19:47 Family History Son Marfans syndrome Daughter Marfans syndrome Father Hypertension Grandfather Heart disease Myocardial infarction CVA (cerebral vascular accident) Grandmother Heart disease Surgical History H/O coronary artery bypass surgery (03/08/11) History of hand surgery History of left heart catheterization (12/14/20) History of mitral valve repair (03/08/11) History of open reduction and internal fixation (ORIF) procedure (2016) History of surgical fusion joint History of tonsillectomy Hx of ascending aorta replacement (03/08/11) Social History household members: spouse Smoking Status: Never smoker alcohol intake: current alcohol intake frequency: a few times a month substance use type: does not use ROS Review of Systems ROS Unobtainable: due to mental status Constitutional Constitutional: Denies fever(s) Cardiovascular Cardiovascular: Denies chest pain Respiratory/Chest Respiratory/Chest: Reports shortness of breath at rest Vital Signs Vital Signs Vital Signs: 10/13/22 19:44 10/13/22 20:12 10/13/22 21:27 Temperature 98.1 F Temperature Source Temporal Pulse Rate 58 L 54 L 57 L Respiratory Rate 16 11 L 16 Blood Pressure 198/83 H 179/92 H Blood Pressure Mean 121 121 Pulse Ox 98 95 97 Oxygen Delivery Method Nasal Cannula Nasal Cannula Oxygen Flow Rate (L/min) 4 4 10/13/22 22:35 Temperature Temperature Source Pulse Rate 52 L Respiratory Rate 10 L Blood Pressure Blood Pressure Mean Pulse Ox 97 Oxygen Delivery Method Nasal Cannula Oxygen Flow Rate (L/min) 4 Weight Weight: 265 lb 9.6 oz Body Mass Index (BMI) 32.3 Physical Exam Const alert General Appearance: cooperative Orientation / Consciousness: confused HEENT normocephalic and head/scalp atraumatic Eyes PERRL and EOMs intact bilaterally Neck no lymphadenopathy Lymph Lymphatic: no lymphadenopathy noted Resp normal respiratory effort and normal air movement Auscultation: Negative for rhonchi or wheezes Cardio regular rhythm, S1 normal heart sound and S2 normal heart sound Rate: bradycardia GI normal to inspection, nondistended, normoactive bowel sounds GI Narrative: Protuberant/distended Palpation: Negative for tender Extremity normal capillary refill Skin General Skin Exam: no breakdown Neuro no focal motor deficits and no sensory deficits noted Neuro Narrative: Patient is alert to person and place but was slightly confused on time of day/date Speech: speech normal Psych cooperative and affect normal Results Lab / Micro Data Result Diagrams: 10/13/22 20:44 10/13/22 20:44 Labs: Laboratory Results - last 24 hr 10/13/22 20:44: WBC 8.8, RBC 3.09 L, Hgb 8.8 L, Hct 27.6 L, MCV 89.3, MCH 28.5, MCHC 31.9 L, RDW Std Deviation 52.2 H, RDW Coeff of Lalita 16.1 H, Plt Count 230, MPV 10.5, Immature Gran % (Auto) 2.200 H, Neut % (Auto) 76.9 H, Lymph % (Auto) 7.0 L, [place] % (Auto) 13.5 H, Eos % (Auto) 0.1, Baso % (Auto) 0.3, Absolute Neuts(auto) 6.8, Absolute Lymphs (auto) 0.62 L, Nucleated RBC % 0 10/13/22 20:44: Sodium 140, Potassium 3.2 L, Chloride 106, Carbon Dioxide 26.0, Anion Gap 8, BUN 21 H, Creatinine 1.39 H, Estim Creat Clear Calc 75.46, Est GFR (MDRD) Af Amer 69, Est GFR (MDRD) Non-Af 57 L, BUN/Creatinine Ratio 15.1, Glucose 130 H, Calcium 9.1, Total Bilirubin 1.90 H, AST 69 H, ALT 61, Alkaline Phosphatase 42 L, Troponin I High Sens 159 H*, Total Protein 8.1, Albumin 4.1, Globulin 4.0, Albumin/Globulin Ratio 1.0 10/13/22 20:44: Ammonia 24.0, B-Natriuretic Peptide 1270.3 H 10/13/22 20:44: Lactic Acid 1.3 10/13/22 21:30: Urine Color Yellow, Urine Clarity Clear, Urine pH 6.0, Ur Specific [place] 1.015, Urine Protein 500 H, Urine Glucose (UA) Normal, Urine Ketones 5 H, Urine Occult Blood 150 H, Urine Nitrite Negative, Urine Bilirubin 1H, Urine Urobilinogen 12 H, Ur Leukocyte Esterase 25 H, Urine RBC 0-5 SEEN, Urine WBC 0-5 SEEN, Ur Squamous Epith Cells 0 SEEN, Urine Bacteria 0 SEEN, Urine Mucus 0 SEEN ABG Data ABG results: ABG 10/13/22 20:41 Specimen Type ART Sample Site R Radial pH 7.47 H Bicarbonate Actual 24.8 Total CO2 26 Base Excess 1 O2 Saturation 96 ABG pCO2 34.4 L ABG pO2 78 Kyler Test Positive O2 Delivery Device Cannula Liter Flow 4.0 Radiology Impression Chest X-Ray 10/13/22 20:50 IMPRESSION: Suggestion of mild asymmetric diffuse pulmonary edema. Cardiomegaly. Electronically Signed: Fredy Salas MD at 21:21 EDT , Chest CTA 10/13/22 21:56 IMPRESSION: 1. Multilobar pulmonary airspace disease/infiltrate within right lung, with trace right pleural effusion. 2. Stable postop changes and aneurysmal dilatation of thoracic aorta with small chronic intramural ulcer at level of diaphragmatic hiatus. No acute aortic dissection, rupture or periaortic hematoma. 3. Stable cardiomegaly. 4. Stable hepatosplenomegaly with hepatic and pancreatic steatosis. Electronically Signed: Isaak Byrd MD at 23:54 EDT , Assessment & Plan Assessment/Plan (1) Marfan syndrome: (2) Elevated troponin: (3) History of aortic dissection: (4) SOB (shortness of breath): (5) Uncontrolled hypertension: (6) Pneumonia: PLAN: Plan 1. Pneumonia?admit patient to progressive care unit, start Levaquin 500 mg IV daily, oxygen as needed per routine protocol 2. Elevated troponin?cycle cardiac enzymes and refer to cardiology due to history of Marfan syndrome and aortic dissection 3. Uncontrolled hypertension?add as needed hydralazine 4. DVT prophylaxis?low molecular weight heparin Charges/Coding Visit Charges Inpatient E&M: 91297 Init Hosp L2 10/14/22 0100 <Electronically signed by Deandre Henson MD> Cosigner Signature (if applicable): CC: Dr. Deandre Henson MD; Dr. Dhaval Braden MD~ Signed [facility] Work Phone: [phone]) 905-475106-13-[address] Villalpando [facility] October 13, 2022 11:32pm Note Date/Time October 13, 2022 8:30 pm [facility] Medical Records Department [address] [place] [address] Emergency Department Summary 10/13/22 MR#: [id number] Acct: [id number] Name: LEIDY DC Rep #:[id number] : [id number] From: Deandre Villalpando MD PCP: Dr. Dhaval Braden MD Status:RE G ER Location: ED HPI History of Present Illness Chief Complaint: Confusion Narrative Narrative: Patient tells me he is confused, I am getting history from his also. He has chronic confusion however he says today it was worse. He cannot tell me anyother symptoms he has no focal weakness. No fevers or chills. He has chronic dyspnea and he is on a BiPAP most of the day up to 22 hours a day. No cough. His dyspnea is no worse than normal. He has no lower extremity edema or calf pain. He is denying chest pain. He is denying any urinary symptoms although hehad a couple episodes of incontinence as at home. He is denying a headache. [facility] Medical History Abnormal stress test Acute maxillary sinusitis, unspecified Apnea, sleep Dissecting aneurysm of ascending aorta Dissection of vertebral artery Essential (primary) hypertension (05/20/18) GERD (gastroesophageal reflux disease) Hyperkalemia Hyperlipidemia Hypertensive urgency Hypoxia Infection of external auditory canal Marfans syndrome Nonobstructive atherosclerosis of coronary artery NEO (obstructive sleep apnea) Uncontrolled hypertension Home Medications acetaminophen 500 mg tablet 1,000 mg PO DAILY PRN Pain 05/19/18 [History Last Taken 05/19/18] ibuprofen 200 mg tablet 400 - 600 mg PO DAILY PRN Pain 05/19/18 [History Last Taken 05/19/18] zolpidem 10 mg tablet 10 mg PO QHS PRN Sleep 01/18/21 [History Last Taken 08/30/21] handicap placcard #1 ea 03/15/21 [Rx Last Taken Unknown] fenofibrate 160 mg tablet 160 mg PO DAILY #90 tabs 09/18/21 [Rx Last Taken Unknown] albuterol sulfate 90 mcg/actuation aerosol inhaler 2 puff inhalation Q4H PRN shortness of breath or wheezing #8.5 grams 10/03/21 [Rx Last Taken Unknown] rabeprazole 20 mg tablet,delayed release (AcipHex) 20 mg PO DAILY stomach #90 tabs 07/17/22 [Rx Last Taken Unknown] quetiapine 200 mg tablet 200 mg PO .Four times a day sleep #120 tabs 09/01/22 [Rx Last Taken Unknown] aspirin 81 mg tablet,delayed release (Adult Aspirin Regimen) 81 mg PO QDAY #90 tabs 09/16/22 [Rx Last Taken Unknown] carvedilol 25 mg tablet 50 mg PO BID #360 tabs 09/16/22 [Rx Last Taken Unknown] clonidine HCl 0.1 mg tablet 0.1 mg PO BID blood pressure #180 tabs 09/16/22 [Rx Last Taken Unknown] clopidogrel 75 mg tablet 75 mg PO DAILY heart health #90 tabs 09/16/22 [Rx Last Taken Unknown] hydralazine 50 mg tablet 150 mg PO TID #810 tabs 09/16/22 [Rx Last Taken Unknown] nifedipine 90 mg tablet,extended release 24 hr 90 mg PO DAILY BP #90 tabs 09/16/22 [Rx Last Taken Unknown] buprenorphine 20 mcg/hour weekly transdermal patch 10/13/22 [History Last Taken Unknown] citalopram 20 mg tablet mg 10/13/22 [History Last Taken Unknown] fluoxetine 10 mg tablet 10 mg PO DAILY 10/13/22 [History Last Taken Unknown] hydrocodone-acetaminophen 5-325mg 5mg-325mg 1 tab PO BID PRN Pain 10/13/22 [History Last Taken Unknown] isosorbide dinitrate 30 mg tablet 30 mg PO BID blood pressure 10/13/22 [History Last Taken Unknown] levothyroxine 25 mcg tablet mcg 10/13/22 [History Last Taken Unknown] lorazepam 1 mg tablet mg 10/13/22 [History Last Taken Unknown] Allergy/AdvReac Type Severity Reaction Status Date / Time ciprofloxacin [From Cipro] Allergy Rash Verified 10/13/22 19:47 ciprofloxacin HCl Allergy Rash Verified 10/13/22 19:47 [From Cipro] sulfamethoxazole Allergy Rash Verified 10/13/22 19:47 [From Bactrim] tramadol Allergy Itching Verified 10/13/22 19:47 trimethoprim [From Bactrim] Allergy Rash Verified 10/13/22 19:47 Family History Son Marfans syndrome Daughter Marfans syndrome Father Hypertension Grandfather Heart disease Myocardial infarction CVA (cerebral vascular accident) Grandmother Heart disease Surgical History H/O coronary artery bypass surgery (03/08/11) History of hand surgery History of left heart catheterization (12/14/20) History of mitral valve repair (03/08/11) History of open reduction and internal fixation (ORIF) procedure (2016) History of surgical fusion joint History of tonsillectomy Hx of ascending aorta replacement (03/08/11) Social History household members: spouse Smoking Status: Never smoker alcohol intake: current alcohol intake frequency: a few times a month substance use type: does not use ROS ROS ED ROS Narrative Review of symptoms is somewhat limited All systems negative except as indicated General: No fever Eyes: No visual changes ENT: No upper airway congestion, normal voice Neck: No neck pain Cardiovascular: No chest pain Respiratory: Chronic dyspnea not worse. Gastrointestinal: No abdominal pain, nausea vomiting or diarrhea Genitourinary: No dysuria Musculoskeletal: Denies myalgias, he has difficulty ambulating but no different than usual. Skin: No rash Neurological: Confusion, no focal weakness EXAM Physical Exam Narrative Exam Narrative: Physical exam General: Patient appears chronically ill but he does not appear in any distress Head: Normocephalic, Atraumatic Eyes: Conjunctiva not pale ENT: Moist mucous membranes Neck: Supple, Nontender, No lymphadenopathy Cardiovascular: Regular rate, Regular rhythm Respiratory: Coarse bilateral breath sounds Abdomen: Soft, Nontender, Nondistended Back: Nontender, Normal Inspection. Negative for: CVA tenderness Extremities: Nontender, No edema Skin: Normal color, No rash Neurological: Patient is alert he is oriented x3 but confused to other minor details. No focal deficit Const Vital Signs: 10/13/22 19:44 10/13/22 20:12 10/13/22 21:27 Temperature 98.1 F Temperature Source Temporal Pulse Rate 58 L 54 L 57 L Respiratory Rate 16 11 L 16 Blood Pressure 198/83 H 179/92 H Blood Pressure Mean 121 121 Pulse Ox 98 95 97 Oxygen Delivery Method Nasal Cannula Nasal Cannula Oxygen Flow Rate (L/min) 4 4 10/13/22 22:35 Temperature Temperature Source Pulse Rate 52 L Respiratory Rate 10 L Blood Pressure Blood Pressure Mean Pulse Ox 97 Oxygen Delivery Method Nasal Cannula Oxygen Flow Rate (L/min) 4 MDM MDM MDM Narrative Medical decision making narrative: Patient is confused, not finding an obvious etiology for this, however he does have an elevated troponin and natruretic peptide. The CT angiogram that was done to make sure there is no dissection does not show any acute dissection. I talked to cardiology who recommended admission. They did not recommend any anticoagulation at this time. Patient had a wide differential diagnosis for hisconfusion and his multiple comorbidities including aortic dissection, I was worried about hyperammonemia, anemia, electrolyte abnormalities or sodium abnormalities. These are not found. EKG does not show a STEMI. Patient will be admitted. I talked to the hospitalist Lab Data Labs: Laboratory Results - last 24 hr 10/13/22 10/13/22 10/13/22 20:44 20:44 20:44 WBC 8.8 RBC 3.09 L Hgb 8.8 L Hct 27.6 L MCV 89.3 MCH 28.5 MCHC 31.9 L RDW Std Deviation 52.2 H RDW Coeff of Lalita 16.1 H Plt Count 230 MPV 10.5 Immature Gran % (Auto) 2.200 H Neut % (Auto) 76.9 H Lymph % (Auto) 7.0 L [place] % (Auto) 13.5 H Eos % (Auto) 0.1 Baso % (Auto) 0.3 Absolute Neuts (auto) 6.8 Absolute Lymphs (auto) 0.62 L Nucleated RBC % 0 Sodium 140 Potassium 3.2 L Chloride 106 Carbon Dioxide 26.0 Anion Gap 8 BUN 21 H Creatinine 1.39 H Estim Creat Clear Calc 75.46 Est GFR (MDRD) Af Amer 69 Est GFR (MDRD) Non-Af 57 L BUN/Creatinine Ratio 15.1 Glucose 130 H Lactic Acid Calcium 9.1 Total Bilirubin 1.90 H AST 69 H ALT 61 Alkaline Phosphatase 42 L Ammonia 24.0 Troponin I High Sens 159 H* B-Natriuretic Peptide 1270.3 H Total Protein 8.1 Albumin 4.1 Globulin 4.0 Albumin/Globulin Ratio 1.0 Urine Color Urine Clarity Urine pH Ur Specific [place] Urine Protein Urine Glucose (UA) Urine Ketones Urine Occult Blood Urine Nitrite Urine Bilirubin Urine Urobilinogen Ur Leukocyte Esterase Urine RBC Urine WBC Ur Squamous Epith Cells Urine Bacteria Urine Mucus 10/13/22 10/13/22 20:44 21:30 WBC RBC Hgb Hct MCV MCH MCHC RDW Std Deviation RDW Coeff of Lalita Plt Count MPV Immature Gran % (Auto) Neut % (Auto) Lymph % (Auto) [place] % (Auto) Eos % (Auto) Baso % (Auto) Absolute Neuts (auto) Absolute Lymphs (auto) Nucleated RBC % Sodium Potassium Chloride Carbon Dioxide Anion Gap BUN Creatinine Estim Creat Clear Calc Est GFR (MDRD) Af Amer Est GFR (MDRD) Non-Af BUN/Creatinine Ratio Glucose Lactic Acid 1.3 Calcium Total Bilirubin AST ALT Alkaline Phosphatase Ammonia Troponin I High Sens B-Natriuretic Peptide Total Protein Albumin Globulin Albumin/Globulin Ratio Urine Color Yellow Urine Clarity Clear Urine pH 6.0 Ur Specific [place] 1.015 Urine Protein 500 H Urine Glucose (UA) Normal Urine Ketones 5 H Urine Occult Blood 150 H Urine Nitrite Negative Urine Bilirubin 1 H Urine Urobilinogen 12 H Ur Leukocyte Esterase 25 H Urine RBC 0-5 SEEN Urine WBC 0-5 SEEN Ur Squamous Epith Cells 0 SEEN Urine Bacteria 0 SEEN Urine Mucus 0 SEEN ABG Data ABG results: ABG 10/13/22 20:41 Specimen Type ART Sample Site R Radial pH 7.47 H Bicarbonate Actual 24.8 Total CO2 26 Base Excess 1 O2 Saturation 96 ABG pCO2 34.4 L ABG pO2 78 Kyler Test Positive O2 Delivery Device Cannula Liter Flow 4.0 Radiography Diagnostic Testing: Clinical Impression(s) from Imaging Studies Chest X-Ray 10/13/22 20:50 IMPRESSION: Suggestion of mild asymmetric diffuse pulmonary edema. Cardiomegaly. Electronically Signed: Fredy Salas MD at 21:21 EDT , X-ray read by me shows some slight pulmonary edema. EKG Initial EKG: Comments: Sinus rhythm with a rate of 54. Normal MA interval. QTc is 504. Nonspecific intraventricular conduction delay. Nonspecific ST changes. No acute ischemic changes. Interpreted by emergency doctor Discharge Plan Dx/Rx/DC Orders Clinical Impression: CHF (congestive heart failure), Marfan syndrome, Elevated troponin, History of aortic dissection Disposition Disposition: Acute Care Hospital [facility] What to do if you have Problems For any increased pain, shortness of breath, bleeding, nausea or vomiting, chestpain, or any unexpected problems, contact your Primary Care Provider. Call [facility] ([phone]) or report to the closest Emergency Room. Call 911 if necessary. 10/13/222331 <Electronically signed by Deandre Villalpando MD> Cosigner Signature (if applicable): CC: Dr. Dhaval Braden MD ~ Signed [facility] Work Phone: [phone]) 731-980206-08-2022 History of Present illness Narrative* Carmella Lira MD - 10/09/2021 3:23 PM EDT Images from the original note were not included. [facility] Department of Cardiovascular Medicine SECTION OF CARDIOVASCULAR IMAGING OUTPATIENT VISIT DATE October 09, 2021 OUTPATIENT VISIT TYPE ESTABLISHED PRIMARY CARE PHYSICIAN: Raymond Galvez [address] [facility] [address] [place] [address] REFERRING PHYSICIAN: Carmella Lira [address] [facility] [id number] CHIEF COMPLAINT: Follow up HISTORY OF PRESENT ILLNESS: Mr. Leidy Dc is a 50 year old male who presents today for follow-up visit after recent hospitalization for Type B aortic intramural hematoma. He has history of Marfan syndrome, Type A aortic dissection s/p Niels procedure, vertebral artery dissection, CAD s/p CABG and he was previously seen by Dr. Schafer. He has a past medical history of hypertension, hyperlipidemia, NEO, chronic low back pain. His recent hospitalization and discharge summary is noted below. PATIENT NAME: Leidy Dc ADMISSION DATE: 08/07/2021 DISCHARGE DATE: 08/21/2021 Attending Physician: Carmella Lira MD Code Status: Prior Primary Service: Hvi Imaging Admission Diagnosis: Type B aortic dissection Discharge Diagnosis: Type B aortic dissection Secondary Diagnoses: Patient Active Hospital Problem List: Marfan syndrome (08/01/2011) S/P thoracic aortic aneurysm repair (06/28/2013) HTN (hypertension) (02/13/2016) S/P mitral valve repair () Mixed hyperlipidemia (11/27/2016) Dissection of thoracoabdominal aorta (HCC) (08/07/2021) Aortic dissection (HCC) (08/07/2021) Acute respiratory failure with hypoxia (HCC) (08/08/2021) VIRGINIA (acute kidney injury) (HCC) (08/08/2021) Acute anemia (08/08/2021) Acute respiratory failure with hypoxia and hypercapnia (HCC) (08/08/2021) Atelectasis of left lung (08/10/2021) Obesity, Class II, BMI 35-39.9 (08/11/2021) Reason for Hospitalization: Leidy Dc is a 50 y/o M with PMH of Marfan's, asc aortic dissection s/p aortic root replacement, Niels's procedure, CABG x 1( SVG- RCA), arch repair and frozen elephant trunk procedure, and MVr 03/10/[address] Joe, HLD, HTN and R vertebral artery dissection 2019, whowas transferred from [facility] for chest pain with CTA C/A/P notable for new Type B aortic dissection/IMH and hypertensive crisis. Hospital Course: He was admitted to the CICU with HR 110s, BP 140/70s, treated with nipride and IV metoprolol. CT showed IMH distal to thoracic aorta without signs of leakage or rupture and no signs of visceral mal-perfusion. CTS and Vascular surgery determined no need for acute surgical intervention. Chlorthalidone and losartan were held due to V[place]. He was able to be transitioned to oral impulsecontrol with Isordil, hydralazine, nifedipine, carvedilol and clonidine.Renal US was normal. Pulmonary was consulted for acute hypoxic and hypercapnic respiratory failure requiring BIPAP. Etiology ofpatient's acute hypoxic respiratory failure likely atelectasis from back/abdominal pain, constipation, etc. Recommended EZ-PAP and adjusting nocturnal BiPAP to increase IPAP and decrease RR. Pt experience acutely worsening abdominal pain for which repeat CTA did not show worsening of his dissection/intramural hematoma. He had acute urinary retention for which a andrade catheter was placed on 08/12. Pain management was consulted for ongoing back pain despite heavy doses of opiates. On 08/14, patient became acutely hypoxic requiring BiPAP. CMET was called he was transferred to the CICU, then to MICU. Recurrent AHRF felt to be potentially multifactorial with components OHS/chest wall abnormalities, V/Q mismatch 2/2 pulmonary edema Treated with IV lasix and continued BiPAP. requested psychiatry was consulted for worsening Bipolar symptoms. Continued on psych medications, including Seroquel for sleep. Neurology was consulted for LE numbness and fecal/urinary incontinence.MRI C/T/L spine wwo without evidence for cord infarct or other acute abnormalities. Neuro signed off with recs for outpatient EMG was recommended to evaluate for neuropathy. Pt had visual changes/blurriness. CT brain negative. Pt having constipation and abdominal pain likely due opioid use, KUB negative for ileus. On 08/18, he was transferred to the [facility] under the Cardiology Imaging service. Repeatecho bubble study: With agitated saline contrast study, a few bubbles are evident on the left side, appear to start after 3rd cardiac cycle. HR/BP controlled prior to discharge. VIR[place]IA improved, SCR 1.27. Weaned off O2. discharged with Home OT/PT. Since his hospital discharge, Mr. Dc was seen by Dr. Thomas in Pulmonary Medicine regarding restrictive lung disease and Dr. Daley in Neurology for numbness in his legs. Mr. Dc currently has symptoms of back pain that has been ongoing and he is following with touch up painter hand. He has no cardiac symptoms and he denies chest pain, shortness of breath, orthopnea, cough, edema, palpitations, PND, lightheadedness or syncope. Mr. Dc is currently taking aspirin, carvedilol, clonidine, clopidogrel, atorvastatin, fenofibrate, hydralazine, isosorbide dinitrate, nifedipine. PAST CARDIAC HISTORY: Mr. Dc has been seen in the past for Marfan syndrome, CAD s/p CABG, s/p Niels procedure and recent descending aortic dissection He was last seen on August 21, 2021 while admitted as an inpatient. PAST MEDICAL HISTORY Diagnosis Date Aortic dissection, ascending 03/08/2011 CAD (coronary artery disease) SVG to RCA Dissection of thoracoabdominal aorta ([facility]) 08/07/2021 Headache disorder HTN (hypertension) 02/13/2016 Hyperlipidemia 03/13/2011 Marfan's syndrome 2010 2010: s/p Niels's procedures, ascending aorta & arch repair w 28 mm Dacron graft, frozen elephant trunk procedure w direct placement of a 34 mm x 10 cm Emerson-Tag thoracic stent graft S/P mitral valve repair 2010 plication of the anterior leaflet and right axillary aortic cannulation with an 8 mm graft Stroke (cerebrum) ([facility]) 05/20/2018 PAST SURGICAL HISTORY Procedure Laterality Date ASCENDING AORTA GRF VALVE SPARE ROOT REMODEL 03/08/2011 Emergent. Valve sparing aortic root replacement . Aortic valve (Niels's procedure) with 32-mm Valsalva Dacron graft, reconstruction of the RCA, CABGx1 (SVG-RCA), ascending aorta and arch repair with 28-mm Dacron graft, frozen elephant trunk procedure 34 mm x 10 ccm Emerson-Tag thoracic stent graft, mitral valve repair with with plication of the anterior leaflet and right axillary aortic cannulation PAST SURGICAL HISTORY OF right hand surgery after saw injury (lost index finger) PAST SURGICAL HISTORY OF toe surgery after injury; also hammer toe surgery PAST SURGICAL HISTORY OF CABGx1 TONSILLECTOMY HX SOCIAL HISTORY Social History Tobacco Use Smoking status: Never Smoker Smokeless tobacco: Former User Types: Chew Substance Use Topics Alcohol use: No Drug use: No FAMILY HISTORY Problem Relation Age of Onset other (Marfan's syndrome) Child 2 children with Marfans' Heart Paternal Uncle had heart failure at age 48 Ischemic Heart Disease Paternal Grandfather age 60s, [place] Ischemic Heart Disease Maternal Grandfather age 80s,. strokes, MIs Hypertension Father ALLERGIES: ALLERGIES Allergen Reactions Bactrim [Sulfametho* Hives Ciprofloxacin Hives Tramadol Rash MEDICATIONS: RABEprazole (ACIPHEX) 20 mg tablet Take 1 tablet by mouth once daily. buprenorphine (BUTRANS) 5 mcg/hour Apply 1 Patch as directed one time a week for 30 days. levothyroxine (SYNTHROID) 25 mcg tablet Take 1 tablet by mouth once daily. citalopram hydrobromide (CELEXA) 10 mg tablet Take 1 tablet by mouth once daily. cyanocobalamin 2,000 mcg tab Take 1 tablet by mouth once daily. QUEtiapine (SEROQUEL) 50 mg tablet Take 1 tablet by mouth daily at bedtime. methocarbamol (ROBAXIN) 500 mg tablet Take 1 tablet by mouth every 6 hours as needed. lidocaine (SALONPAS) 4 % patch Apply 2 Patches as directed once daily. isosorbide dinitrate (ISORDIL, SORBITRATE) 30 mg tablet Take 1 tablet by mouth three times daily. hydrALAZINE (APRESOLINE) 50 mg tablet Take 3 tablets by mouth every 8 hours. cetirizine (ZYRTEC) 10 mg tablet Take 1 tablet by mouth once daily as needed (allergy). aspirin 81 mg chewable tablet Take 1 tablet by mouth once daily. NIFEdipine ER (PROCARDIA XL) 90 mg 24 hr tablet Take 1 tablet by mouth once daily. clopidogrel (PLAVIX) 75 mg tablet Take 1 tablet by mouth once daily. carvedilol (COREG) 25 mg tablet Take 2 tablets by mouth twice daily with meals. cloNIDine HCl (CATAPRES) 0.1 mg tablet Take 1 tablet by mouth twice daily. Fenofibrate (LOFIBRA) 160 mg tablet Take 160 mg by mouth once daily. albuterol HFA (VENTOLIN HFA) 90 mcg/actuation inhaler Inhale 2 Puffs as instructed every 4 hours asneeded for Wheezing/Shortness of Breath. REVIEW OF SYSTEMS: See HPI. PHYSICAL EXAMINATION: BP 121/64 Pulse 64 Ht 193 cm (6' 4") Wt 123.5 kg (272 lb 3.2 oz) SpO2 98% BMI 33.13 kg/m General: Well appearing, in no acute distress. Skin: No clubbing, no cyanosis. Eyes: Extra ocular movements intact Oropharynx: Teeth in good repair. Neck: No jugular venous distention, no carotid bruits, carotids have a normal upstroke, no palpablethyromegaly. Lungs: Clear to auscultation bilaterally, no wheezing or rhonchi. Heart: Regular rhythm, PMI not displaced, S1, S2 normal, no S3, no S4, no heaves, no rub and 2/6 ejection systolic murmur. Abdomen: Soft, nontender, bowel sounds normal, no palpable organomegaly, no bruits. Extremities: No peripheral edema . Grade 2/4 distal pulses bilaterally. Neuro: Oriented to person, place and time, alert, cooperative, gait not assessed. CARDIOVASCULAR MEDICINE TESTING: Laboratory Testing: Component Latest Ref Rng & Units 10/09/2021 Protein, Total 6.3 - 8.0 g/dL 6.7 Albumin 3.9 - 4.9 g/dL 4.3 Calcium 8.5 - 10.2 mg/dL 9.6 Bilirubin, Total 0.2 - 1.3 mg/dL 0.4 Alkaline Phosphatase 38 - 113 U/L 46 AST 14 - 40 U/L 25 ALT 10 - 54 U/L 21 Glucose 74 - 99 mg/dL 179 (H) BUN 9 - 24 mg/dL 16 Creatinine 0.73 - 1.22 mg/dL 1.27 (H) Sodium 136 - 144 mmol/L 143 Potassium 3.7 - 5.1 mmol/L 3.5 (L) Chloride 97 - 105 mmol/L 104 CO2 22 - 30 mmol/L 24 Anion Gap 9 - 18 mmol/L 15 eGFR >=60 mL/min/1.73m 68 WBC 3.70 - 11.00 k/uL 6.17 RBC 4.20 - 6.00 m/uL 3.64 (L) Hemoglobin 13.0 - 17.0 g/dL 10.2 (L) Hematocrit 39.0 - 51.0 % 33.6 (L) MCV 80.0 - 100.0 fL 92.3 MCH 26.0 - 34.0 pg 28.0 MCHC 30.5 - 36.0 g/dL 30.4 (L) RDW-CV 11.5 - 15.0 % 16.1 (H) Platelet Count 150 - 400 k/uL 308 MPV 9.0 - 12.7 fL 9.3 Absolute nRBC <0.01 k/uL <0.01 Cholesterol, Total <200 mg/dL 197 Triglyceride <150 mg/dL 206 (H) HDL Cholesterol >39 mg/dL 27 (L) Non HDL Cholesterol <130 mg/dL 170 (H) Fasting Time hrs 0 VLDL Cholesterol <30 mg/dL 41 (H) TC:HDL Ratio <5.10 7.30 (H) LDL Cholesterol <100 mg/dL 129 (H) LDL:HDL Ratio <2.54 4.78 (H) Last ECHO Result Conclusion ECHO WITH AGITATED SALINE CONTRAST Collected: 08/21/2021 9:56 AM (Final result) Impression: CONCLUSIONS: - Exam indication: Suspected pulmonary hypertension - The left ventricle is normal in size. Left ventricular systolic function is normal. EF = 63 5% (2D 4-ch.) - Post mitral valve repair. There is trace (trace - 1+) mitral valve regurgitation. - S/P aortic valve resuspension. There is trace aortic valve regurgitation. The peak gradient is 13 mmHg, the mean gradient is 7 mmHg and the dimensionless valve index is 0.57. Prior peak/mean gradients 15/8 mmHg. - With agitated saline contrast study, a few bubbles are evident on the left side, appear to start after 3rd cardiac cycle. - Exam was compared with the prior [facility] echocardiographic exam performed on 08/07/2021. More limited study at this time. * * * Final * * * Complete Results Last EKG Result Conclusion ECG COMPLETE Collected: 08/14/2021 3:08 PM (Final result) Impression: NORMAL SINUS RHYTHM NONSPECIFIC INTRAVENTRICULAR BLOCK NONSPECIFIC T WAVE ABNORMALITY ABNORMAL ECG Confirmed by MD ANGELICA, PhD, LEE ([id number]) on 08/27/2021 2:45:32 PM Complete Results Last CT Result Conclusion CTA CHEST (NONGATED) WO/W IVCON Exam End: 08/12/2021 11:40 AM (Final result) Impression: IMPRESSION: TYPE-B AORTIC DISSECTION/IMH BEYOND ENDOVASCULAR STENT GRAFT - No Evidence Of Interval Complications - clinical correlation is recommended ACTIONABLE RESULT: FOLLOW-UP Acuity: Actionable Findings: Heart and Vascular system Routing Code: CV_1 Recommendation: Unlisted Recommendation (see report) Time Frame: At the discretion of the clinical team. INTACT SURGICAL GRAFT AORTIC ROOT, ASCENDING AORTA, AND ARCH ENDOVASCULAR STENT GRAFT DISTAL ARCH AND DESCENDING THORACIC AORTA - no endoleak - diameter stented proximal descending aorta: 3.7 cm; BEYOND THE STENT: Similar to scan from 08/06/2021 there is EVIDENCE OF DISSECTION/IMH BEYOND THE ENDOVASCULAR STENT GRAFT extending to the renal artery segment -maximum thickness in the retrocardiac segment 7 mm -small amount of contrast enhancement/intramural blood pool in the suprarenal segment -otherwise thrombosed false lumen -Overall the IMH appears less pronounced compared to 08/06/2021 -no evidence of leakage/rupture - Retrocardiac descending level: 4.4 cm LUNGS: small patchy areas of nonspecific faint groundglass opacification most pronounced in the right lower lung lobe. Clinical correlation is recommended COMMUNICATION: Results will be communicated with the ordering provider via [employer] staff message or phone message by [facility] [employer] [facility] within 2 business days of report finalization. Algorithms for management of incidental imaging findings can be found on the [facility] Intranet Sharepoint site at: [email or web address] Book Packer: [email or web address] Transcribe Date/Time: Aug 12 2021 11:48A Dictated by : DEANDRE BERUMEN MD... Complete Results I have personally reviewed the Electrocardiogram, Laboratory Testing, Echocardiogram and Cardiac CTAngiography. IMPRESSION: Mr. Leidy Dc is a 50 year old male with history of Marfan syndrome (based on family history and aortic disease, no genetic testing) Type A aortic dissection s/p valve sparing aortic root, ascending aortic, arch repair and endovascular stent in the descending aorta Recent descending aortic intramural hematoma Hypertension Hyperlipidemia NEO Restrictive lung disease Obesity Chronic back pain Mr. Dc presents for hospital discharge follow up opinion. His main symptoms are chronic back painwith good control of heart rate and blood pressure. Reviewed in detail all of his imaging including echocardiogram and CTA and at this time he needs continued BP control and follow up imaging. Recommended follow up with pain management. PLAN AND RECOMMENDATIONS: Continue current medical management with BP control. Follow up in 3 months with blood work, EKG, Echocardiogram and CTA. Advised to call my office with questions about his health. Carmella Lira MD CONTACT INFORMATION: Carmella Lira M.D., F.A.C.C. [facility] Department of Cardiovascular Medicine Heart and Vascular [place] [facility] Desk [id number] [place] [phone] [facility] [address] Office E-mail: [email or web address] Appointments: [phone] [email or web address] [id number] documented in this encounterFulton County [facility] Center06-06-2022 History of Present illness Narrative* Silke Diego RRT - 10/07/2021 2:26 PM EDT PULM FUNCTION SMARTBLOCK: Provider: Yomi Thomas MD Spirometry: 2 System: [id number] SIT/SUPINE documented in this encounterFulton County Health Center06-06-2022 History of Present illness Narrative* Yomi Thomas MD - 10/07/2021 2:00 PM EDT CHIEF COMPLAINT/REASON FOR VISIT 50 year old male presenting as a consultation request from Dr Lira for restrictive lung disease HISTORY OF PRESENT ILLNESS I had previously and last seen him 2013 for restrictive lung disease. This is in the context of Marfan's, AVR dacron graft . for aortic dissection and symptoms of shortness of breath with moderate restrictive impairment in the vital capacity that had decreased from 81% in July 2011, to 68%in July 2013 which I felt was extraparenchymal and associated with a 20 pound weight gain. The exam did not suggest diaphragm dysfunction. However, I planned follow-up pulmonary function test evaluation on return given his complex thoracic surgery. I also suspected a diagnosis of obstructive sleepapnea in the context of daytime sleepiness, snoring, weight gain and witnessed apnea. I recommendeda polysomnogram. Those tests were not completed. In March 2021 he was hospitalized with respitatory failure requiring intubation. He was diacharged form the hospital straight to the sleep lab. He has since been on NIPPV with settings adjusted based on a sleep apne because he had a lot ot mixed sleep apnea. More recently, he had a type B aortic dissection presenting as suddedn chest pain just after ht wasdone with dinner and for which he was hospitalized in August 2021. No surgery was recommended and medical therapy initiated. However, he developed increased oxygen requirement with acute hypoxic and hypercapnic respiratory failure (PCO2 49) August 2021. Attributed to combination of left lung atelectasis in the setting of the aortic dissection, possible pulmonary edema, VQ mismatch including from use of nipride. His course progressed to transfer to the medical ICU for noninvasive ventilation, EZ Pap, incentive spirometry. He was also noted to have opioid-induced constipation for which she was placed on naloxegol. He has equipment through [employer] since . He has been on a air curve since discharge. He has been using the debice every night and during the day while awake in bed. He feels that the device is helpful in controlling sleep quality improving the breathing, resolution of snoring. Witnessed apnea but his (present at the [facility]) have resolved. He has no headaches. He does have difficulty breathing lying flat and using the bilevel PAP does make it easier. This orthopnea has been present since 2010 and progressively getting worse over time. He had trouble breathing bending down since last year and getting progressively worse. He gets short of breath after eating (around last November) His weight had increased about 46 lbs over the past 8-9 months He has not been very active and he cannot walk 50 feet without getting short of breath. For some reason, he has been getting shoulder blade pain and in his neck once he start breathing heavy and thismakes it hard to breath. He feels this is the same pain as when he had the dissection. He is a bit uncomfortable from the pressure of his device which he feels he neeeds to tighten so tight that it hurts the back of his head. He has wheezing at times and he has been on albuterol which he uses about two times per day withoutmuch relief. PAST MEDICAL HISTORY Diagnosis Date Aortic dissection, ascending 03/08/2011 CAD (coronary artery disease) SVG to RCA Dissection of thoracoabdominal aorta (HCC) 08/07/2021 Headache disorder HTN (hypertension) 02/13/2016 Hyperlipidemia 03/13/2011 Marfan's syndrome 2010 2010: s/p Niels's procedures, ascending aorta & arch repair w 28 mm Dacron graft, frozen elephant trunk procedure w direct placement of a 34 mm x 10 cm Emerson-Tag thoracic stent graft S/P mitral valve repair 2010 plication of the anterior leaflet and right axillary aortic cannulation with an 8 mm graft Stroke (cerebrum) ([facility]) 05/20/2018 PAST SURGICAL HISTORY Procedure Laterality Date ASCENDING AORTA GRF VALVE SPARE ROOT REMODEL 03/08/2011 Emergent. Valve sparing aortic root replacement . Aortic valve (Niels's procedure) with 32-mm Valsalva Dacron graft, reconstruction of the RCA, CABGx1 (SVG-RCA), ascending aorta and arch repair with 28-mm Dacron graft, frozen elephant trunk procedure 34 mm x 10 ccm Emerson-Tag thoracic stent graft, mitral valve repair with with plication of the anterior leaflet and right axillary aortic cannulation PAST SURGICAL HISTORY OF right hand surgery after saw injury (lost index finger) PAST SURGICAL HISTORY OF toe surgery after injury; also hammer toe surgery PAST SURGICAL HISTORY OF CABGx1 TONSILLECTOMY HX MEDICATIONS AND ALLERGIES Reviewed SOCIAL/OCCUPATIONAL/EXPOSURE HISTORY He essentially never smoked. He chew tobacco since age 14 (a can per day for about 25 years( and quite about . 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 He used to work nights for 15 years until the first surgery. Eight cats at home. FAMILY HISTORY Problem Relation Age of Onset other (Marfan's syndrome) Child 2 children with Marfans' Heart Paternal Uncle had heart failure at age 48 Ischemic Heart Disease Paternal Grandfather age 60s, [place] Ischemic Heart Disease Maternal Grandfather age 80s,. strokes, MIs Hypertension Father REVIEW OF SYSTEMS Wears glasses, he has no floaters,has blurry vision, no hearing issues. Occsaional palpitations, occasional chest pain, no hiatal hernia, GERD symptoms controlled with PPI, no kidney stones, no history of UTI, no history of hepatitis, no skin rash or nodules, no joint swelling, swelling of feet andlegs, neck pain and shoulder pain. The rest of the review of systems is as per the HPI PHYSICAL EXAM BP 118/58 Pulse 67 Temp 36.7 C (98.1 F) (Temporal) Resp 17 Ht 193 cm (6' 4") Wt 122.4 kg (269 lb 13.5 oz) SpO2 95% BMI 32.85 kg/m GA: well appearing, in no acute distress SKIN: No rashes or lesions. HEENT: No sinus tenderness. Oropharynx: Lips, mucosa, and tongue normal. Jones tongue position 1, no retrognathia, high arched palate LN: no cervical or supraclavicular adenopathy LUNGS: clear to auscultation and percussion, no wheezing or rhonchi. There was good excursion (about 3 finger breadths) of both hemidiaphragms by percussion HEART: G2-3 DANIEL 2nd ICS right and LSB, No gallop, or rubs. No ectopy. ABDOMEN: Soft, non-tender. Bowel sounds normal. No masses, organomegaly EXTREMITIES: Normal. No deformities, edema, or skin discoloration. No clubbing. Traumatic amputation index right hand and deformities of the middle finger from table saw incident. NEURO: Gait and station not assessable. Mood and affect normal. DATABASE Usage 09/08/2021 - 10/07/2021 Usage days 29/30 days (97%) >= 4 hours 29 days (97%) < 4 hours 0 days (0%) Usage hours 471 hours 26 minutes Average usage (total days) 15 hours 43 minutes Average usage (days used) 16 hours 15 minutes Median usage (days used) 16 hours 14 minutes Total used hours (value since last reset - 10/07/2021) 2,[address] Serial number [id number] Mode Spont Timed IPAP 24 cmH2O EPAP 19 cmH2O Respiratory rate 12 bpm Therapy Leaks - L/min Median: 0.0 95th percentile: 5.0 Maximum: 75.8 Events per hour AI: 0.1 HI: 0.3 AHI: 0.4 Tidal Volume (ml) Median (avg) 580 Respiratory Rate (breaths/min) Median (avg) 20 Spontaneous breaths Triggered 98% Cycled 99% Minute Ventilation (L/min) Median (avg) 11.8 October 07, 2021 Pre Challenge Post Pred LLN ULN Actual %Pred Actual %Chng Actual %Chng SPIROMETRY FVC 5.85 4.54 7.17 3.92 66 3.00 -23 FEV1 4.52 3.50 5.50 2.63 58 1.93 -26 FEV1/FVC 0.78 0.67 0.87 0.67 86 0.64 -3 TcCo2 42.4 CTA chest August 2021 personally reviewed. Dissection and intramural hematoma of beyond the endovascular stent graft extending to the renal artery. I note atelectasis in the left lower lobe, and smallfaint groundglass opacification in the right lower lobe Pred LLN Pre- % Date [id number] Time 09:45AM Height 192 Weight 98 FVC 6.19 5.10 4.24 68 FEV 1 4.84 3.93 2.96 61 FEV1%F 78.98 69.30 70.00 89 DLCO 34.44 26.44 25.89 75 DL/VA 4.42 3.22 4.47 101 Pred LLN Pre- % Date [id number] Time 08:26AM Height 192 Weight 89.1 FVC 6.23 5.14 5.05 81 FEV 1 4.90 3.98 3.61 74 FEV1%F 79.39 69.71 71.55 90 ASSESSMENT Moderate restrictive pulm impairment with a significant sitting to supine drop in the vital capacity perhaps consistent with diaphragm impairment which may be contributing to the restriction. However, exam suggests (as on the last visit) excellent excursion of both hemidiaphragms. Additionally, hisvital capacity is stable compared to 2014. We will evaluate this further with measures of respiratory muscle strength but doubt significant diaphragm impairment and suspect his restriction is mostly extraparenchymal as a result of weight. Restriction was severe enough that he had hypercapnia and hypoxemia during his hospitalization. Both appear to have resolved. Specifically, his saturation is 95% and his transcutaneous CO2 is in the normal range. He is fortunately adapted to noninvasive ventilation and deriving significant benefitsfrom its use. Although the titration study was apparently complicated by mixed apneas, the current download indicates superb control of the apnea-hypopnea index. However pressures are elevated but the pressure support is narrow such that his tidal volume is low for height and his respiratory rate is high. There may be room therefore to decrease the EPAP which is associated with some degree of disc omfort, and increase the pressure support PLAN Settings sent to device Set Mode to Spont Timed Set EPAP to 15.0 cmH2O (from 19 cm H2O) Set IPAP to 22.0 cmH2O (from 24 cm H2O) set Respiratory rate to 12 bpm Set Ramp enable to On Set Ramp time to 30 min Set Start EPAP to 10.0 cmH2O Set Ti Min to 0.8 sec (from 0.3 seconds) Set Ti Max to 1.5 sec (from 2.0 seconds) Set Rise time to 300 ms (from MIN) Set Trigger to Medium Set Cycle Sensitivity to Medium Weight loss Followup in 4 months with sitting supine spirometry, and MIP MEPS with assessment of transcutaneousCO2 Yomi Thmoas M.D. cc: Dr Carmella Lira The following is provided for various regulatory, billing, insurance or documentation purposes: The referring physician and the reason for this consultation are as listed in my note under the headings CHIEF COMPLAINT/REASON FOR VISIT OR CONSULTING PROVIDER/REASON FOR CONSULT and my final recommendations were or will be communicated back to the requesting physician by way of shared medical record, DrConnect, or letter via [place] mail. Mr. Dc is not having pain related to the reason for this visit. I spent 80 minutes in the visit, with more than 50% of the total [id number] time of the visit in counseling / coordination of care. Some elements were copied from my note dated 2013, which have been updated where appropriate, and all reflect current medical decision making from today, October 07, 2021 Yomi Thomas M.D. documented in this encounterFulton [facility] Center06-02-2022 Miscellaneous Notes* Telephone Encounter - Carmella Lira MD - 10/03/2021 3:14 PM EDT Blood work ordered. Carmella Lira MD * Telephone Encounter - Macie Hayes ADM - 10/03/2021 2:58 PM EDT Any testing needed for this patient for next Thursday? documented in this encounterFulton County [facility] Center05-16-2022 History of Present illness Narrative* Jhoan Daley MD - 09/16/2021 2:30 PM EDT [facility] New Patient Visit Note Consultation requested by Dr. Fabiola Granados for an opinion regarding neuropathy. My final recommendations will be communicated back to the requesting physician by way of shared Medical record or letter torequesting physician via US mail. History of Present Illness: Mr. Dc is a pleasant 50 year old male presenting to neuromuscular clinic for evaluationof numbness in his lower extremities. There is a past medical history of: 1. Marfan's sydnrome 2. Type A aortic dissection s/p repair (2010), new aortic dissection 08/07/21 3. Vertebral artery dissection (2019) 4. NEO 5. CAD 6. HTN 7. HLD Per patient, in March he was hospitalized due to chest pain where he stayed for a week. At that time, he noticed numbness of his bilateral thigh over the anterior-lateral aspects. He was told thiswas due to "laying in bed" and had no further work-up. His numbness continued to worsen in same location to a level where he does not feel his anterior-lateral thigh at all. He spilled hot liquid on left thigh without feeling it. He gained 60 lbs over 9 months (mainly central). He does not wear tight clothes The patient was admitted on 08/07 for acute chest pain. At that time, he was found to have a new typeB dissection beginning at the distal infrarenal aorta and extending to his previously placed stent.Vascular surgery was consulted who felt there were no surgical interventions needed given that he was maintaining perfusion. He noticed numbness moved more toward the toes through left leg over the interior langston. He reports lower back pain for 11 years that radiates to both buttock. Pain is rated 8/10 in severity and constant. No aggravating factors include while alleviating factors include Buprenorphine 5 Mcg/hr Patch every 7 days. He is seeing pain specialist Dr. Chavarria. He also reported urinary incontinence in the past but resolved. No associated urgency, bowel habit change He was evaluated by neurology and underwent MRI of the spine which did not show any spinal cord ischemia. MRI lumbar spine wo contrast showed no evidence of narrowing. Her reports (+) weakness left ankle caused him left foot drop. He endorses difficulty with arising from squatted position, difficulty with getting out of chair without using arms and difficulty with walking up steps. He has cramps/twitching No neurogenic claudication, an assistive device to walk, imbalance with walking or Falls He denies any recent muscle bulk loss, difficulty with brushing hair/teeth, difficulty with buttoning shirts/use zips, or clumsiness/dropping grasped objects No burning pain, loss of balance while eyes are close, falls in shower or while walking in dark room Patient did not do physical therapy He has hx of +EtOH use since last year. He used to drink 2 shots of vodka every night for one year.Stopped last month. Diet: no restrictive diets. He does not take supplement No family history of similar illness or neuropathy No exposure to chemical No autonomic dysfunction including syncope, presyncope, orthostatic intolerance, impaired sweating,heat or cold intolerance , excessive mucosal dryness, gastroparetic early satiety, bowel or bladderdyscontrol. He endorses postprandial abdominal bloating, constipation, and erectile dysfunction attr ibuted to medications and since on beta rocio. He has neck pain located in left sided and radiates to the left shoudler No recent skin rashes or any constitutional symptoms like (-) fever, (-) night sweats, (-) anorexiaor (-) unintentional weight loss. Symptoms are worsening overtime. EMG today showed there is no evidence of right lumbosacral motor radiculopathy. In addition, there is no evidence of a large fiber sensory-motor polyneuropathy affecting the right lower extremity. PAST MEDICAL HISTORY Diagnosis Date Aortic dissection, ascending 03/08/2011 CAD (coronary artery disease) SVG to RCA Dissection of thoracoabdominal aorta ([facility]) 08/07/2021 Headache disorder HTN (hypertension) 02/13/2016 Hyperlipidemia 03/13/2011 Marfan's syndrome 2010 2010: s/p Niels's procedures, ascending aorta & arch repair w 28 mm Dacron graft, frozen elephant trunk procedure w direct placement of a 34 mm x 10 cm Emerson-Tag thoracic stent graft S/P mitral valve repair 2010 plication of the anterior leaflet and right axillary aortic cannulation with an 8 mm graft Stroke (cerebrum) ([facility]) 05/20/2018 PAST SURGICAL HISTORY Procedure Laterality Date ASCENDING AORTA GRF VALVE SPARE ROOT REMODEL 03/08/2011 Emergent. Valve sparing aortic root replacement . Aortic valve (Niels's procedure) with 32-mm Valsalva Dacron graft, reconstruction of the RCA, CABGx1 (SVG-RCA), ascending aorta and arch repair with 28-mm Dacron graft, frozen elephant trunk procedure 34 mm x 10 ccm Emerson-Tag thoracic stent graft, mitral valve repair with with plication of the anterior leaflet and right axillary aortic cannulation PAST SURGICAL HISTORY OF right hand surgery after saw injury (lost index finger) PAST SURGICAL HISTORY OF toe surgery after injury; also hammer toe surgery PAST SURGICAL HISTORY OF CABGx1 TONSILLECTOMY HX Medications: Current Outpatient Medications Medication Sig cyanocobalamin 2,000 mcg tab Take 1 tablet by mouth once daily. QUEtiapine (SEROQUEL) 50 mg tablet Take 1 tablet by mouth daily at bedtime. pantoprazole DR (PROTONIX) 40 mg tablet Take 1 tablet by mouth DAILY (6 AM). methocarbamol (ROBAXIN) 500 mg tablet Take 1 tablet by mouth every 6 hours as needed. lidocaine (SALONPAS) 4 % patch Apply 2 Patches as directed once daily. isosorbide dinitrate (ISORDIL, SORBITRATE) 30 mg tablet Take 1 tablet by mouth three times daily. hydrALAZINE (APRESOLINE) 50 mg tablet Take 3 tablets by mouth every 8 hours. cetirizine (ZYRTEC) 10 mg tablet Take 1 tablet by mouth once daily as needed (allergy). aspirin 81 mg chewable tablet Take 1 tablet by mouth once daily. NIFEdipine ER (PROCARDIA XL) 90 mg 24 hr tablet Take 1 tablet by mouth once daily. clopidogrel (PLAVIX) 75 mg tablet Take 1 tablet by mouth once daily. carvedilol (COREG) 25 mg tablet Take 2 tablets by mouth twice daily with meals. cloNIDine HCl (CATAPRES) 0.1 mg tablet Take 1 tablet by mouth twice daily. Fenofibrate (LOFIBRA) 160 mg tablet Take 160 mg by mouth once daily. atorvastatin (LIPITOR) 40 mg tablet Take 1 tablet by mouth daily at bedtime. albuterol HFA (VENTOLIN HFA) 90 mcg/actuation inhaler Inhale 2 Puffs as instructed every 4 hours asneeded for Wheezing/Shortness of Breath. No current facility-administered medications for this visit. Allergies: See updated allergies documented below. ALLERGIES Allergen Reactions Bactrim [Sulfametho* Hives Ciprofloxacin Hives Tramadol Rash Social History Tobacco Use Smoking status: Never Smoker Smokeless tobacco: Never Used Substance Use Topics Alcohol use: No Drug use: No Employer And Job Title: None on file Years Of Education Completed: Not specified Marital Status: FAMILY HISTORY Problem Relation Age of Onset other (Marfan's syndrome) Child 2 children with Marfans' Heart Paternal Uncle had heart failure at age 48 Ischemic Heart Disease Paternal Grandfather age 60s, [place] Ischemic Heart Disease Maternal Grandfather age 80s,. strokes, MIs Hypertension Father Review of Systems Constitutional: Negative for appetite change, chills, fatigue, fever and recent unintentional weight change. HENT: Negative for drooling, dysphonia and trouble swallowing. Eyes: Positive for blurred vision (left eye). Negative for double vision and ptosis. Respiratory: Negative for difficulty breathing and shortness of breath. Cardiovascular: Positive for leg swelling. Negative for palpitations. Gastrointestinal: Positive for constipation. Negative for blood in stool, nausea and vomiting. Genitourinary: Positive for sexual dysfunction. Negative for difficulty urinating. Hematologic/Lymphatic: Negative for bruises/bleeds easily and adenopathy. Musculoskeletal: Positive for back pain, muscle weakness and neck pain. Negative for myalgias. Skin: Negative for rash. General Examination There were no vitals taken for this visit. General: Clinically well-appearing, comfortable. Eyes/ENT: see cranial nerve examination. No exophthalmos. Neck: No masses appreciated. Adequate range of motion without tenderness. Respiratory: No tachypnea. No use of accessory muscles. Cardiac/vascular: Warm limbs. Regular rate and rhythm. GI: non-distended abdomen. Back: Moderate range flexion and extension with no pain to palpation. SLR test is negative Extremities: +edema. +Toes deformity Skin: No pertinent rashes or lesions. Skin color, texture, turgor normal. Mental Status Mental status including: orientation to time, place, person and fund of knowledge are essentially normal. Cranial Nerves II: No visual field defects. III-IV-: Pupils equal round and reactive to light. Extra-ocular eye movements in all directions of gaze. Normal saccades and smooth pursuit. No nystagmus. No ptosis. V: Normal facial sensation. VII: Normal facial symmetry and movements. Normal orbicularis oculi and orbicular suze. VIII: Normal hearing and vestibular function. IX-X: Normal palatal movement. XI: Normal shoulder shrug and head rotation. XII: Normal tongue strength and range of motion, no deviation or fasciculation. Speech is not dysarthric. MOTOR: No appreciable atrophy, fasciculations or abnormal movements. No pronator drift Strength/Power (MRC grade- out of 5): Upper extremity power, when graded out of 5, revealed: Right Left shoulder abduction 5 5 shoulder adduction 5 5 shoulder internal rotation 5 5 shoulder external rotation 5 5 elbow extension 5 5 elbow flexion 5 5 forearm supination 5 5 forearm pronation 5 5 wrist extension 5 5 wrist flexion 5 5 finger extension 5 5 deep finger flexion (D2-3) 5 5 deep finger flexion (D4-5) 5 5 thumb flexion with FPL 5 5 thumb abduction with APB 5 5 finger abduction 5 5 Lower extremity strength, when reported the same way, showed: Right Left hip flexion 5 5 hip extension 5 5 hip adduction 5 5 hip abduction 5 5 knee flexion 5 5 knee extension 5 5 ankle dorsiflexion 5 5 ankle plantar flexion 5 5 ankle inversion 5 5 ankle eversion 5 5 toe extension 5 5 toe flexion 4 4 Has some difficulty but still able to rise from a chair without using arms. Deep Tendon Reflexes (DTRs): Right Left Biceps 2+ 2+ Triceps 2+ 2+ Brachioradialis 2+ 2+ Patellar 2+ 2+ Achilles 2+ 2+ Vertical spread: No Crossed adductors: No Aldrich's sign: unable to assess on the right due to joint deformity/ (-) left Tromner's sign:unable to assess on the right due to joint deformity/ (-) left Plantar responses: equiv on the right/ equiv on the left Clonus: (-) right/ (-) left SENSORY: Proprioception: normal at the toes Vibration: Diminshed at toes (3 seconds) Light touch: absent over the bilateral lateral femoral cutaneous nerves. Diminshed at the toes (70%compared to the knees) Pin prick: absent over the bilateral lateral femoral cutaneous nerves Romberg's sign: swaying but did not fall COORDINATION/GAIT: Normal finger-to- nose-finger and fghu-ra-trsy bilaterally. Intact rapid alternating movements bilaterally. Gait narrow-based and stable. Tandem and stressed gait intact. OUTSIDE RECORDS: The patient provided outside medical records, which were reviewed during the course of the visit. The relevant details are summarized below: INTERNAL RECORDS: The patient's electronic medical record was reviewed. The relevant details include: Component Latest Ref Rng & Units 08/17/2021 08/20/2021 08/21/2021 WBC 3.70 - 11.00 k/uL 9.24 RBC 4.20 - 6.00 m/uL 2.73 (L) Hemoglobin 13.0 - 17.0 g/dL 8.4 (L) Hematocrit 39.0 - 51.0 % 28.3 (L) MCV 80.0 - 100.0 fL 103.7 (H) MCH 26.0 - 34.0 pg 30.8 MCHC 30.5 - 36.0 g/dL 29.7 (L) RDW-CV 11.5 - 15.0 % 15.6 (H) Platelet Count 150 - 400 k/uL 379 MPV 9.0 - 12.7 fL 8.9 (L) Absolute nRBC <0.01 k/uL <0.01 Glucose 74 - 99 mg/dL 102 (H) BUN 9 - 24 mg/dL 22 Creatinine 0.73 - 1.22 mg/dL 1.22 Sodium 136 - 144 mmol/L 138 Potassium 3.7 - 5.1 mmol/L 4.2 Chloride 97 - 105 mmol/L 103 CO2 22 - 30 mmol/L 24 Anion Gap 9 - 18 mmol/L 11 Calcium 8.5 - 10.2 mg/dL 8.6 eGFR >=60 mL/min/1.73m 71 HIV 12 Combo (Ag/Ab) Nonreactive Nonreactive HIV 1/2 Ab HIV Interpretation MPA Result No M protein is identified. No M protein is identified. Staff Review ([facility]) Reviewed by Mana Garcia MD Syphilis Screen Result Nonreactive Nonreactive Syphilis Interpretation Cannot exclude recent Treponemal infection if specimen collected within 7-10 days after appearance of suspect lesions or 2-3 weeks after an exposure. Clinical correlation is required. Hemoglobin A1C 4.3 - 5.6 % 6.4 (H) Estimated Average Glucose mg/dL 137 Vitamin B12 232-1,245 pg/mL 655 MMA 79 - 376 nmol/L 512 (H) TSH 0.270 - 4.200 mIU/L 16.400 (H) Free T4 0.9 - 1.7 ng/dL 0.9 Free T3 2.3 - 4.1 pg/mL 2.8 MRI C/T/L 08/17/21 Mildly motion degraded examination. Within constraints of the acquisition, no clear evidence of spinal cord signal abnormality. No abnormally restricted diffusion. No pathologic intradural enhancement. Mild degenerative changes, without significant canal narrowing in the cervical, thoracic, or lumbar spine. IMPRESSION: Mr. Dc is a pleasant 50 year old with multiple cardiovascular risk factors including CAD, HTN andHLD presenting for evaluation of numbness in his lower extremities. Patient primary numbness seems in the thighs muscles over the anterior lateral aspect. His physicalexam shows absent pinprick and light touch over the lateral femoral cutaneous nerve bilaterally with preserved feeling in the interior and posterior thigh aspect. He had an EMG today which showed no large fiber polyneuropathy or lumbar radiculopathy. There was a concern about spinal cord infarctionfrom aortic dissection but this was not evident on MRI of the thoracic spine neither the patient had weakness in his lower extremities. His history and exam is consistent with bilateral meralgia paresthetica. He gained 60 pounds over the past 9-month (mainly central obesity) that caused nerve entrapment. He is also found to have borderline diabetes with A1c is 6.4%. 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 His lumbar MRI showed no significant neuroforaminal stenosis especially at L3-L4 that explain his symptoms. He has slight Romberg sign and his MMA is elevated which may reflect an underlying B12 deficiency although the B12 level is within labs reference limits. It is reasonable to treat as it could be confounding factor. PLAN/RECOMMENDATIONS: We extensively counseled the patient about lifestyle modification including weight loss and healthydiet. Recommended cardiac rehab while managing weight loss due to his heart condition Avoid using tight clothes Instructed the patient to start B12 supplement and to repeat MMA/B12 after 4 weeks Refer to PT His back pain is managed by pain management The impression above as well as the plan as outlined below were extensively discussed with the patient (in the company of spouse) who voiced understanding. All questions were answered to stated satisfaction. The patient was counseled on pertinent fall precautions per the printed material provided today, and as noted under the "Patient Instructions" section below When available, results of the above investigations and possible further recommendations will be communicated to the patient via telephone/[employer]. Patient to call office if not contacted after expected testing turnaround time. To aid with communication, patients (and primary care physicians) can sign up for [employer] (or [employer]), which allows online appointment scheduling, transmission of labs results and chart notes, andsecure email communication. To establish either account, visit [email or web address]. Return to clinic as needed Delvin Greer M.D. Neuromuscular Medicine fellow [facility] In the service of ([place] Staff) [NB- note not considered final until co-signed by staff provider] Referring provider: Fabiola Granados [id number] [facility] [id number] Primary care provider: Raymond Galvez [address] [facility] [address] [place] [address] I saw and evaluated the patient, reviewed and discussed the castlilo elements and findings with the fellow, and agree with and edited where appropriate the above note. Jhoan Daley MD documented in this encounterF[facility]05-[facility] History of Present illness Narrative* Javier De Leon MD - 09/16/2021 12:54 PM EDT UNIVERSAL PROTOCOL / SAFETY CHECKLIST Procedure to be Performed: EMG Sign In: A Moment of CARE was completed. Personnel directly involved with the procedure wore the appropriate PPE (Personal Protective Equipment). Patient/Surrogate Stated/Verified: PATIENT VERIFIED(optional for EMERGENT procedures): Patient name, Date of , Relevant allergies and The intended procedure Time Out Communication: Intended patient and procedure match the source documents. Correct side/site marked and visible. Sign Out: SIGN OUT (optional for EMERGENT procedures): Post-procedure follow-up management communicated and Plan of Care Visit completed when applicable. Cierra Hidalgo Emg Javier De Leon Jr, MD documented in this encounterFulton [facility]04-26-2022 History of Present illness Narrative* Dorothy Donaldson APRN.CNP - 08/27/2021 10:57 AM EDT Incidental Lung Nodule Enrollment Call attempt: 1st Attempt Call status: Complete Enrolled in Lung Nodule program: No Declined reason: Finding reviewed deemed low risk. No further work up recommended at this time. Letter/brochure notifying patient sent to patient s home mailing address. Lung Nodule Program Location: [facility] Patient noted to have RLL non-specific ggo. Nodule likely from prolonged perisent fluid overload. Patient has apt on 10/03 with general pulm for evaluation of hypercapnic respiratory failure. No further outreach needed at this time from the lung nodule clinic. Dorothy Donaldson SCHEDULE ANNOUNCER documented in this encounterFulton [facility]04-06-2022 Procedure note* Annalee Pan APRN.CNP - 08/07/2021 4:28 AM EDT Images from the original note were not included. Arterial Line PROCEDURE NOTE Patient: Leidy Dc Date: August 07, 2021 INFORMED CONSENT: Informed consent was not obtained due to clinical factors necessitating an emergent procedure. SAFE PRACTICE Sign in Communication: Emergent N/A. Time Out: The procedural team confirmed the Correct Patient, the Correct Procedure, the Correct Site and the Correct Position (if applicable) during the audible time out: Emergent N/A. Sign Out Communication: Emergent N/A. INDICATION FOR LINE PLACEMENT: Continuous blood pressure monitoring CONDITION OF LINE PLACEMENT: Sterile PRIMARY PROCEDURALIST: Annalee Pan APRN.CNP PROCEDURE NARRATIVE Site Marked: Yes Kyler s Test positive Skin Preparation: Chlorhexidine Gluconate Barriers Used by Proceduralist and All Assisting Personnel: Yes Barriers Used: small Sterile Drapes and Sterile Gloves CATHETER PLACEMENT/PLACEMENT TECHNIQUE Anesthesia was obtained with none. The left radial artery was cannulated with a 20 g arterial catheter. Number of attempts at insertion: 2 Bright red pulsatile blood exited catheter: NA, unable to threat catheter over wire Appropriate wave form was noted: NA Line Secured with: NA Sterile dressing applied and dated: No Estimated Blood Loss: 3 ml Procedure was performed while vehicle in motion: no COMPLICATIONS: None. The patient tolerated the procedure well Successful Placement: no SIGNATURE: Annalee Pan APRN.CNP PATIENT NAME: Leidy Dc DATE: 08/07/2021 documented in this encounterFulton [facility]04-06-2022 History of Present illness Narrative* Annalee Pan APRN.CNP - 08/07/2021 3:31 AM EDT Images from the original note were not included. Critical Care Transport Note Patient Name: Leidy Dc Service Date: 08/07/2021 Referring Physician: Christopher Accepting Physician: Garrison Referring Facility: [facility] Accepting Facility: [facility] Main SUBJECTIVE/CHIEF COMPLAINT: Chest pain REASON FOR TRANSPORT: Higher level of care needed than available at referring facility History of Present Illness: The following history is what was known to CCT team at time of given care and summarized through review of available medical records, patient/family interview and from referring physician and nursing report. Leidy Dc is a 50 year old male with a past medical history significant for HTN, Marfan's, Aorticdissection (s/p repair 2010), CAD s/p CABG and MV repair, HLD, and Stroke/vertebral artery dissection (on Plavix). He presented to [facility] ER on 08/06/2021 for evaluation of chest pain. Patient developed acute onset midsternal chest pain with radiation to left shoulder and back that "took him to the floor". Positive diaphoresis. Denies SOB, nausea, abdominal pain, lightheadedness, dizziness, palpitations or sensation changes. Given his history of prior dissection, he went to the ER. Upon presentation, he was hypertensive at 230/111. A CT was performed that showed a new type B intramural hematoma. He was given Morphine and Dilaudid for pain and started on a Nitroprusside gtt. Air medical transport was requested to reduce the [id number]-tp-ecmtnowl time, 20 minutes by air vs. approximately 45 minutes by ground, with the potential for increased ground transport time secondary to distance between facilities and the patient s condition requiring an emergent procedure or evaluationnot available at the referring facility. At this time, the physician managing the patient requested transfer to the [facility] for tertiary and/or quaternary services unavailable at the referring facility. The physician managing the patient requested the [facility] transport and treat the patient for the purpose of tertiary care, evaluation, and management of his cardiovascular condition(s). Patient condition at time of exam was: Acutely ill and critically ill. Due to the unique circumstances of the patient, it was determined that this was the closest, most appropriate facility by referring physician. ROS: A complete review of systems was performed and is negative except as noted PAST MEDICAL HISTORY: PAST MEDICAL HISTORY Diagnosis Date Aortic dissection, ascending 03/08/2011 CAD (coronary artery disease) SVG to RCA HTN (hypertension) 02/13/2016 Hyperlipidemia 03/13/2011 Marfan's syndrome 2010 2010: s/p Niels's procedures, ascending aorta & arch repair w 28 mm Dacron graft, frozen elephant trunk procedure w direct placement of a 34 mm x 10 cm Emerson-Tag thoracic stent graft S/P mitral valve repair 2010 Stroke (cerebrum) ([facility]) 05/20/2018 Vertebral artery dissection PAST SURGICAL HISTORY: PAST SURGICAL HISTORY Procedure Laterality Date ASCENDING AORTIC GRAFT 03/08/2011 Emergent. Valve sparing aortic root replacement . Aortic valve (Niels's procedure) with 32-mm Valsalva Dacron graft, reconstruction of the RCA, CABGx1 (SVG-RCA), ascending aorta and arch repair with 28-mm Dacron graft, frozen elephant trunk procedure 34 mm x 10 ccm Emerson-Tag thoracic stent graft, mitral valve repair with with plication of the anterior leaflet and right axillary aortic cannulation right hand surgery after saw injury (lost index finger) toe surgery after injury; also hammer toe surgery CABGx1 TONSILLECTOMY HX ALLERGIES: Bactrim [Sulfamethoxazole-Trimethoprim], Ciprofloxacin, and Tramadol SOCIAL HISTORY: Social History Tobacco Use Smoking status: Never Smoker Smokeless tobacco: Never Used Substance Use Topics Alcohol use: No Drug use: No FAMILY HISTORY: FAMILY HISTORY Problem Relation Age of Onset other (Marfan's syndrome) Child 2 children with Marfans' Heart Paternal Uncle had heart failure at age 48 Ischemic Heart Disease Paternal Grandfather age 60s, [place] Ischemic Heart Disease Maternal Grandfather age 80s,. strokes, MIs Hypertension Father HOME MEDICATIONS: NIFEDIPINE ER ORAL Take 60 mg by mouth. Fenofibrate (LOFIBRA) 160 mg tablet Take 160 mg by mouth once daily. carvedilol (COREG) 12.5 mg tablet Take 1 tablet by mouth twice daily with meals. atorvastatin (LIPITOR) 40 mg tablet Take 1 tablet by mouth daily at bedtime. clopidogrel (PLAVIX) 75 mg tablet Take 1 tablet by mouth once daily. potassium chloride (K-TAB) 10 mEq tablet Take 1 tablet by mouth once daily. RABEprazole (ACIPHEX) 20 mg tablet Take 20 mg by mouth once daily. albuterol HFA (VENTOLIN HFA) 90 mcg/actuation inhaler Inhale 2 Puffs as instructed every 4 hours asneeded for Wheezing/Shortness of Breath. losartan (COZAAR) 50 mg tablet Take 50 mg by mouth BID. Hydralazine 50 mg TID Medications Administered by Referring Facility: Morphine 6 mg (in divided doses) Dilaudid 1 mg Zofran 4 mg Nitroprusside gtt @ 158 mcg/min OBJECTIVE: Recent Labs, Diagnostics & Procedure Reports reviewed as available. Referring Facility Labs CBC: WBC 5.8k, Hgb 12.8, Hct 38.8, Plt 274K CHEMISTRY: Na 137, K 3.6, Cl 104, CO2 27, BUN 13, SCr 1.39, Glu 175 Coags: INR 1.0, PT 12.4, PTT 26.0 Diagnostics & Procedure Reports ECG: normal sinus rhythm CTA Scan Chest/Abdomen/Pelvis: Per radiology report, "New, type B, intramural hematoma extending from the level of the distal endograft to the level of the renal arteries measuring maximum of 4.4 x 4.2 cm just distal to the graft. 2 areas of intramural blood pool without penetrating ulcer." Procedure/Operative Report(s): None Invasive Lines/Devices/Tubes Placed by Referring Facility: PIV x 2 PHYSICAL EXAM: Upon CCT Arrival at Referring Facility Vital Signs: HR 84 bpm, BP 137/70mmHg, RR 15, SpO2 95% Oxygen/Ventilator Settings: 4 lpm via NC General appearance: alert, well hydrated, pleasant, no distress, cooperative. HEENT: normocephalic, EOMI, PERRL/4mm brisk. Mucous membranes moist Respiratory: clear to auscultation bilaterally,no respiratory distress,no rales,no rhonchi,no wheezing. Cardiovascular: no murmurs, no rubs, no gallops, regular rate and rhythm, peripheral pulses symmetric. Gastrointestinal: soft, nontender, nondistended and normal bowel sounds. Genitourinary: No void observed Musculoskeletal: No clubbing, cyanosis or edema, no calf tenderness, normal ROM, no joint swelling,no bony tenderness, no deformities, equal palpable peripheral pulses and normal strength Skin: no abrasions or open wounds. Heme/Lymph: No cervical lymphadenopathy Neurologic: Awake, alert and oriented x 3, normal speech, Normal strength, No involuntary motions, Normal Sensation, GCS 15 CRITICAL CARE COURSE Upon bedside arrival at referring facility the patient was assessed and detailed physical exam performed. Initial exam findings as described above. The patient was placed on the transport monitor andall transport equipment transitioned in standard fashion. Arterial line placement was attempted butunsuccessful. The patient was transferred to the transport cot and transported to the Aircraft and loaded without incident. The patient was medically managed, monitored, and reassessed during transport. He was given Metoprolol 5 mg x 2 which caused a sudden significant drop in HR (106 -->60) so further doses were given with caution. Nitroprusside gtt was titrated up towards goal SBP <120 but stayed ~130-140's. Given Fentanyl 50 mcg x 2 for pain with improvement. Oxygen increased to 6 lpm for SpO2 89-90%. Medications Managed & Administered by CCT: Fentanyl 50 mcg x 2 doses Metoprolol 12.5 mg (in divided doses) Nitroprusside gtt titrated up to 215 mcg/min Procedures Performed by CCT: Arterial line (unsuccessful) POCT Performed by CCT: None ASSESSMENT/PLAN: Leidy Dc is a 50 year old male with history of Marfan's and previous aortic dissection presents with c/o acute onset CP Type B Aortic Dissection Accelerated Hypertension Hypoxia Marfan's - Imaging showed new dissection starting just distal to endograft - Given Fentanyl x 2 en route for chest pain - Continued on Nitroprusside gtt and titrated to goal SBP <120 - Given Metoprolol 12.5 mg total. Cautious use after first 10 mg due to sensitivity - Oxygen increased to 6 lpm to [facility] SpO2 >/= 92% - Hemodynamic status monitored closely throughout transport - Expedited transfer to [facility] for further evaluation and treatment The transport was completed without significant incident or change in the patient's status. The patient was transported to the the [facility] by [facility]otor (Helicopter) for tertiary and/or quaternary evaluation and management of his Emergent cardiovascular condition(s). Upon arrival to the receiving facility, a qerh-ti-wtsl report was given to bedside nursing staff Daysi and Dr. Avelar. Patient care was transferred. The patient condition was Critical at the time of transfer. Vital Signs at time care transferred to the receiving facility unit: HR 69 bpm, Rhythm SR, BP 131/87 mmHg, RR 18, SpO2 97% on FiO2 6 lpm SPECIAL EQUIPMENT: None MODE OF TRANSPORT: [facility]otor (Helicopter) CRITICAL CARE TIME:I personally performed 55 minutes of critical care time exclusive of separately billable procedures, ambulance charges and treating other patients. This was necessary to treat or prevent further deterioration of the following condition(s): Aortic Dissection Cardiovascular impairment, Respiratory impairment, HAMMER DRIVER impairment, Shock and Cardiac Arrest which the patient had and/or had a high probability of suddenly developing. SIGNATURE: Annalee Pan APRN.CNP Acute Care Nurse Practitioner [facility] Critical [facility] Team documented in this encounterFulton [facility] Center10-12-2016 History of Past illness Narrative* Problem Noted Date Resolved Date Angina at rest 02/13/2016 11/27/2016 Overview: Patient with a new type of pain, unlike any he's had before, associated with abdominal swelling. He seems quite uncomfortable. CT reviewed with radiology (uploaded into [employer]) - no change from prior, no evidence of dissection in root or abdomen. Coronaries not fully evaluated. No central PE. Troponin negative after almost 12 hours (!) of chest pain. But it is nitro responsive... His d-dimer is positive, as well, which is of unknown significance. - trend troponins, MB - ticag 180mg x 1 now, 90mg BID, as ACS most likely given lack of evidence of PE or dissection on CT - heparin gtt with bolus - nitro gtt - still unclear cause of pain (ACS more likely than PE or dissection, given the above), but will transfer to [facility] for further management if unable to control pain on NTG gtt Pericardial effusion 03/17/2011 02/13/2016 Overview: CTA 03/14 postop: MODERATE SIZE PERICARDIAL EFFUSION, MEASURING UP TO 10-MM OVER THE RIGHT VENTRICLE. F/u echo 03/15: "There is small pericardial effusion measuring 0.7 cm. No 2D echo findings suggestive of tamponade." Continue PO lasix at discharge. Echo in one month at f/u. Leukocytosis 03/16/2011 03/18/2011 Overview: Resolving. WBC 9K today. Tmax 100.4. UA negative. Bld Cx no growth 2 days. Encourage CDB, PEP and increased ambulation. Bleeding nose 03/14/2011 03/16/2011 Overview: Pt reports epistaxis starting yesterday. Pt has received two doses of plavix, Asa 162mg and sq heparin. Depressed state 03/13/2011 03/17/2011 Overview: Pt with flat affect/minimal eye contact. Not motivated to participate in care or recommended activities. Will ask healing services to see. Continue to monitor. Hyperlipidemia 03/13/2011 02/13/2016 Overview: H/o HLD. LDL 92 on no medication preop. Continue low dose Lipitor at discharge. Acute blood loss anemia-postoperative 03/12/2011 03/16/2011 Overview: Stable H/H 7.8/23.6 Continue to monitor. Leukocytosis 03/11/2011 03/13/2011 Overview: Resolved, WBC 7.75 today. CAD 03/11/2011 11/27/2016 Overview: s/p CABG x1 (SVG-->RCA). - continue aspirin, beta rocio, ARB - check LDL - rest as per Angina Thrombocytopenia 03/11/2011 03/14/2011 Overview: Resolving, today Plt Ct up to 156. Continue to monitor. pulm insuff/ FVO 03/10/2011 02/13/2016 Overview: Room air. CXR 03/16:"No air space consolidation." Near admission wt. Continue po lasix at discharge.Encourage CDB, PEP and increased ambulation. Fluid overload 03/10/2011 03/17/2011 Overview: Below pre-op weight. Will review chest x-ray this AM and adjust lasix as needed -currently Lasix 20 IV BID. Stress hyperglycemia 03/10/2011 03/13/2011 Overview: No hx DM. BS within normal range. Not requiring exogenous insulin will stop accu checks. Sinus tachycardia 03/10/2011 03/17/2011 Overview: ST today-HR in 100s with systolic B/P 140s-will increase BB 03/16/2011 - rate in 90s-Dr. Morin would like BB increased to 100mg BID Pain 03/10/2011 11/27/2016 Overview: H/o chronic back pain - continue oxycodone, oxycontin SUMMARY 03/08/2011 03/17/2011 Overview: 40 years old male with hx of Marfan syndrome diagnosed 10 years ago presented to OSH for sudden onset of chest pain. CT at OSH showing ascending aortic dissection to RCA. 03/08/2011 Ascending Aortic Arch Repair, proximal descending thoracic aorta with stent, CABGx1 RSVG to RCA, MVR Surgery 03/08/2011 : Frozen elephant trunk of distal aortic arch, proximal descending thoracic arch with stent, CABGx1 RSVG to RCA, MVR Airway Grade: Grade 1 Special Instrumentation: None Principal Dx and Comorbidities: Acute dissection of Ascending Aortic Arch, Marfan's Syndrome, chronic back pain OR Course: RV systolic failure and DHCA 29mins . OR Transfusions: Packed RBC, Platelets and FFP Pacing wires: NO Preop LVEF: Normal RVF: Normal Post CPB LVEF: Normal RVF: Moderate, RV showing some recovery after CABG ICU Problems and Additional Surgeries: Active Consults: pain management Events since last ICU note: RNF POD 2 A/P for Active Problems 03/14/2011: -post op echo completed/ Review CTA with CTS -plavix started per CTS s/p Rober procedure for 6 months -pain management consult -Pain - Changed DEMONSTRATOR [employer] APPLIANCES to dilaudid, continue percocet and oxycodone for breakthrough pain -1.5 liters NC Wean --OOB/ambulate -Depressed mood- flat affect/minimal eye contact -- healing services consulted, monitor TPW out -moderate pericardial effusion per CTA - ordered another echo to assess-03/15 echo-small pericardial effusion -was seen by pain management - on 03/14/2011-reconsulted today-still using DEMONSTRATOR E[employer] G[employer] APPLIANCES a great deal. -blood cultures drawn for low grade fever per fellow on 03/14 - Dr. Joe requested, UA and chest x-ray ordered 03/15 Aortic dissection, ascending 03/08/201104/2016 Overview: H/o Acute ascending aortic arch dissection. POD 10 S/p Aortic root replacement (Niels's), Frozen elephant trunk stent graft of distal aortic arch, proximal descending thoracic aorta with stent, CABG x1 to RCA, MVr (plication). Echo: Niels's procedure) with 32-mm Valsalva Dacron graft. No AI. Pk/Mn 10/5mmhg. - S/P MV repair (plication of the anterior leaflet) with trivial MR. Pk/Mn 4/2mmhg. There is mild RAYMOND with no significant LVOT obstruction" CT done and reviewed. Continue plavix x6 months s/p Niels's procedure at discharge. Marfan syndrome 03/08/2011 03/18/2011 Overview: Diagnosed 10 years ago and has been followed up in [facility]. He has been told his aorta has been growing. Two of his three kids have also een diagnosed Marfan's syndrome documented as of this encounter (statuses as of 08/07/2021) [facility]10-12-2016 History of Past illness Narrative* Problem Noted Date Resolved Date Angina at rest 02/13/2016 11/27/2016 Overview: Patient with a new type of pain, unlike any he's had before, associated with abdominal swelling. He seems quite uncomfortable. CT reviewed with radiology (uploaded into Via) - no change from prior, no evidence of dissection in root or abdomen. Coronaries not fully evaluated. No central PE. Troponin negative after almost 12 hours (!) of chest pain. But it is nitro responsive... His d-dimer is positive, as well, which is of unknown significance. - trend troponins, MB - ticag 180mg x 1 now, 90mg BID, as ACS most likely given lack of evidence of PE or dissection on CT - heparin gtt with bolus - nitro gtt - still unclear cause of pain (ACS more likely than PE or dissection, given the above), but will transfer to [facility] for further management if unable to control pain on NTG gtt Pericardial effusion 03/17/2011 02/13/2016 Overview: CTA 03/14 postop: MODERATE SIZE PERICARDIAL EFFUSION, MEASURING UP TO 10-MM OVER THE RIGHT VENTRICLE. F/u echo 03/15: "There is small pericardial effusion measuring 0.7 cm. No 2D echo findings suggestive of tamponade." Continue PO lasix at discharge. Echo in one month at f/u. Leukocytosis 03/16/2011 03/18/2011 Overview: Resolving. WBC 9K today. Tmax 100.4. UA negative. Bld Cx no growth 2 days. Encourage CDB, PEP and increased ambulation. Bleeding nose 03/14/2011 03/16/2011 Overview: Pt reports epistaxis starting yesterday. Pt has received two doses of plavix, Asa 162mg and sq heparin. Depressed state 03/13/2011 03/17/2011 Overview: Pt with flat affect/minimal eye contact. Not motivated to participate in care or recommended activities. Will ask healing services to see. Continue to monitor. Hyperlipidemia 03/13/2011 02/13/2016 Overview: H/o HLD. LDL 92 on no medication preop. Continue low dose Lipitor at discharge. Acute blood loss anemia-postoperative 03/12/2011 03/16/2011 Overview: Stable H/H 7.8/23.6 Continue to monitor. Leukocytosis 03/11/2011 03/13/2011 Overview: Resolved, WBC 7.75 today. CAD 03/11/2011 11/27/2016 Overview: s/p CABG x1 (SVG-->RCA). - continue aspirin, beta rocio, ARB - check LDL - rest as per Angina Thrombocytopenia 03/11/2011 03/14/2011 Overview: Resolving, today Plt Ct up to 156. Continue to monitor. pulm insuff/ FVO 03/10/2011 02/13/2016 Overview: Room air. CXR 03/16:"No air space consolidation." Near admission wt. Continue po lasix at discharge.Encourage CDB, PEP and increased ambulation. Fluid overload 03/10/2011 03/17/2011 Overview: Below pre-op weight. Will review chest x-ray this AM and adjust lasix as needed -currently Lasix 20 IV BID. Stress hyperglycemia 03/10/2011 03/13/2011 Overview: No hx DM. BS within normal range. Not requiring exogenous insulin will stop accu checks. Sinus tachycardia 03/10/2011 03/17/2011 Overview: ST today-HR in 100s with systolic B/P 140s-will increase BB 03/16/2011 - rate in 90s-Dr. Morin would like BB increased to 100mg BID Pain 03/10/2011 11/27/2016 Overview: H/o chronic back pain - continue oxycodone, oxycontin SUMMARY 03/08/2011 03/17/2011 Overview: 40 years old male with hx of Marfan syndrome diagnosed 10 years ago presented to OSH for sudden onset of chest pain. CT at OSH showing ascending aortic dissection to RCA. 03/08/2011 Ascending Aortic Arch Repair, proximal descending thoracic aorta with stent, CABGx1 RSVG to RCA, MVR Surgery 03/08/2011 : Frozen elephant trunk of distal aortic arch, proximal descending thoracic arch with stent, CABGx1 RSVG to RCA, MVR Airway Grade: Grade 1 Special Instrumentation: None Principal Dx and Comorbidities: Acute dissection of Ascending Aortic Arch, Marfan's Syndrome, chronic back pain OR Course: RV systolic failure and DHCA 29mins . OR Transfusions: Packed RBC, Platelets and FFP Pacing wires: NO Preop LVEF: Normal RVF: Normal Post CPB LVEF: Normal RVF: Moderate, RV showing some recovery after CABG ICU Problems and Additional Surgeries: Active Consults: pain management Events since last ICU note: RNF POD 2 A/P for Active Problems 03/14/2011: -post op echo completed/ Review CTA with CTS -plavix started per CTS s/p Rober procedure for 6 months -pain management consult -Pain - Changed DEMON[employer] APPLIANC[employer] to dilaudid, continue percocet and oxycodone for breakthrough pain -1.5 liters NC Wean --OOB/ambulate -Depressed mood- flat affect/minimal eye contact -- healing services consulted, monitor TPW out -moderate pericardial effusion per CTA - ordered another echo to assess-03/15 echo-small pericardial effusion -was seen by pain management - on 03/14/2011-reconsulted today-still using DEMONSTRATOR [employer] APPLIANCES a great deal. -blood cultures drawn for low grade fever per fellow on 03/14 - Dr. Joe requested, UA and chest x-ray ordered 03/15 Aortic dissection, ascending 03/08/201104/2016 Overview: H/o Acute ascending aortic arch dissection. POD 10 S/p Aortic root replacement (Niels's), Frozen elephant trunk stent graft of distal aortic arch, proximal descending thoracic aorta with stent, CABG x1 to RCA, MVr (plication). Echo: Niels's procedure) with 32-mm Valsalva Dacron graft. No AI. Pk/Mn 10/5mmhg. - S/P MV repair (plication of the anterior leaflet) with trivial MR. Pk/Mn 4/2mmhg. There is mild RAYMOND with no significant LVOT obstruction" CT done and reviewed. Continue plavix x6 months s/p Niels's procedure at discharge. Marfan syndrome 03/08/2011 03/18/2011 Overview: Diagnosed 10 years ago and has been followed up in [facility]. He has been told his aorta has been growing. Two of his three kids have also een diagnosed Marfan's syndrome documented as of this encounter (statuses as of 08/17/2021) [facility]10-12-2016 History of Past illness Narrative* Problem Noted Date Resolved Date Angina at rest 02/13/2016 11/27/2016 Overview: Patient with a new type of pain, unlike any he's had before, associated with abdominal swelling. He seems quite uncomfortable. CT reviewed with radiology (uploaded into Via) - no change from prior, no evidence of dissection in root or abdomen. Coronaries not fully evaluated. No central PE. Troponin negative after almost 12 hours (!) of chest pain. But it is nitro responsive... His d-dimer is positive, as well, which is of unknown significance. - trend troponins, MB - ticag 180mg x 1 now, 90mg BID, as ACS most likely given lack of evidence of PE or dissection on CT - heparin gtt with bolus - nitro gtt - still unclear cause of pain (ACS more likely than PE or dissection, given the above), but will transfer to [facility] for further management if unable to control pain on NTG gtt Pericardial effusion 03/17/2011 02/13/2016 Overview: CTA 03/14 postop: MODERATE SIZE PERICARDIAL EFFUSION, MEASURING UP TO 10-MM OVER THE RIGHT VENTRICLE. F/u echo 03/15: "There is small pericardial effusion measuring 0.7 cm. No 2D echo findings suggestive of tamponade." Continue PO lasix at discharge. Echo in one month at f/u. Leukocytosis 03/16/2011 03/18/2011 Overview: Resolving. WBC 9K today. Tmax 100.4. UA negative. Bld Cx no growth 2 days. Encourage CDB, PEP and increased ambulation. Bleeding nose 03/14/2011 03/16/2011 Overview: Pt reports epistaxis starting yesterday. Pt has received two doses of plavix, Asa 162mg and sq heparin. Depressed state 03/13/2011 03/17/2011 Overview: Pt with flat affect/minimal eye contact. Not motivated to participate in care or recommended activities. Will ask healing services to see. Continue to monitor. Hyperlipidemia 03/13/2011 02/13/2016 Overview: H/o HLD. LDL 92 on no medication preop. Continue low dose Lipitor at discharge. Acute blood loss anemia-postoperative 03/12/2011 03/16/2011 Overview: Stable H/H 7.8/23.6 Continue to monitor. Leukocytosis 03/11/2011 03/13/2011 Overview: Resolved, WBC 7.75 today. CAD 03/11/2011 11/27/2016 Overview: s/p CABG x1 (SVG-->RCA). - continue aspirin, beta rocio, ARB - check LDL - rest as per Angina Thrombocytopenia 03/11/2011 03/14/2011 Overview: Resolving, today Plt Ct up to 156. Continue to monitor. pulm insuff/ FVO 03/10/2011 02/13/2016 Overview: Room air. CXR 03/16:"No air space consolidation." Near admission wt. Continue po lasix at discharge.Encourage CDB, PEP and increased ambulation. Fluid overload 03/10/2011 03/17/2011 Overview: Below pre-op weight. Will review chest x-ray this AM and adjust lasix as needed -currently Lasix 20 IV BID. Stress hyperglycemia 03/10/2011 03/13/2011 Overview: No hx DM. BS within normal range. Not requiring exogenous insulin will stop accu checks. Sinus tachycardia 03/10/2011 03/17/2011 Overview: ST today-HR in 100s with systolic B/P 140s-will increase BB 03/16/2011 - rate in 90s-Dr. Morin would like BB increased to 100mg BID Pain 03/10/2011 11/27/2016 Overview: H/o chronic back pain - continue oxycodone, oxycontin SUMMARY 03/08/2011 03/17/2011 Overview: 40 years old male with hx of Marfan syndrome diagnosed 10 years ago presented to OSH for sudden onset of chest pain. CT at OSH showing ascending aortic dissection to RCA. 03/08/2011 Ascending Aortic Arch Repair, proximal descending thoracic aorta with stent, CABGx1 RSVG to RCA, MVR Surgery 03/08/2011 : Frozen elephant trunk of distal aortic arch, proximal descending thoracic arch with stent, CABGx1 RSVG to RCA, MVR Airway Grade: Grade 1 Special Instrumentation: None Principal Dx and Comorbidities: Acute dissection of Ascending Aortic Arch, Marfan's Syndrome, chronic back pain OR Course: RV systolic failure and DHCA 29mins . OR Transfusions: Packed RBC, Platelets and FFP Pacing wires: NO Preop LVEF: Normal RVF: Normal Post CPB LVEF: Normal RVF: Moderate, RV showing some recovery after CABG ICU Problems and Additional Surgeries: Active Consults: pain management Events since last ICU note: RNF POD 2 A/P for Active Problems 03/14/2011: -post op echo completed/ Review CTA with CTS -plavix started per CTS s/p Rober procedure for 6 months -pain management consult -Pain - Changed DEMON[employer] APPLIANCES to dilaudid, continue percocet and oxycodone for breakthrough pain -1.5 liters NC Wean --OOB/ambulate -Depressed mood- flat affect/minimal eye contact -- healing services consulted, monitor TPW out -moderate pericardial effusion per CTA - ordered another echo to assess-03/15 echo-small pericardial effusion -was seen by pain management - on 03/14/2011-reconsulted today-still using DEMONSTRATOR E[employer] G[employer] APPLIANCES a great deal. -blood cultures drawn for low grade fever per fellow on 03/14 - Dr. Joe requested, UA and chest x-ray ordered 03/15 Aortic dissection, ascending 03/08/201104/2016 Overview: H/o Acute ascending aortic arch dissection. POD 10 S/p Aortic root replacement (Niels's), Frozen elephant trunk stent graft of distal aortic arch, proximal descending thoracic aorta with stent, CABG x1 to RCA, MVr (plication). Echo: Niels's procedure) with 32-mm Valsalva Dacron graft. No AI. Pk/Mn 10/5mmhg. - S/P MV repair (plication of the anterior leaflet) with trivial MR. Pk/Mn 4/2mmhg. There is mild RAYMOND with no significant LVOT obstruction" CT done and reviewed. Continue plavix x6 months s/p Niels's procedure at discharge. Marfan syndrome 03/08/2011 03/18/2011 Overview: Diagnosed 10 years ago and has been followed up in [facility]. He has been told his aorta has been growing. Two of his three kids have also een diagnosed Marfan's syndrome documented as of this encounter (statuses as of 08/20/2021) [facility]10-12-2016 History of Past illness Narrative* Problem Noted Date Resolved Date Angina at rest 02/13/2016 11/27/2016 Overview: Patient with a new type of pain, unlike any he's had before, associated with abdominal swelling. He seems quite uncomfortable. CT reviewed with radiology (uploaded into Via) - no change from prior, no evidence of dissection in root or abdomen. Coronaries not fully evaluated. No central PE. Troponin negative after almost 12 hours (!) of chest pain. But it is nitro responsive... His d-dimer is positive, as well, which is of unknown significance. - trend troponins, MB - ticag 180mg x 1 now, 90mg BID, as ACS most likely given lack of evidence of PE or dissection on CT - heparin gtt with bolus - nitro gtt - still unclear cause of pain (ACS more likely than PE or dissection, given the above), but will transfer to [facility] for further management if unable to control pain on NTG gtt Pericardial effusion 03/17/2011 02/13/2016 Overview: CTA 03/14 postop: MODERATE SIZE PERICARDIAL EFFUSION, MEASURING UP TO 10-MM OVER THE RIGHT VENTRICLE. F/u echo 03/15: "There is small pericardial effusion measuring 0.7 cm. No 2D echo findings suggestive of tamponade." Continue PO lasix at discharge. Echo in one month at f/u. Leukocytosis 03/16/2011 03/18/2011 Overview: Resolving. WBC 9K today. Tmax 100.4. UA negative. Bld Cx no growth 2 days. Encourage CDB, PEP and increased ambulation. Bleeding nose 03/14/2011 03/16/2011 Overview: Pt reports epistaxis starting yesterday. Pt has received two doses of plavix, Asa 162mg and sq heparin. Depressed state 03/13/2011 03/17/2011 Overview: Pt with flat affect/minimal eye contact. Not motivated to participate in care or recommended activities. Will ask healing services to see. Continue to monitor. Hyperlipidemia 03/13/2011 02/13/2016 Overview: H/o HLD. LDL 92 on no medication preop. Continue low dose Lipitor at discharge. Acute blood loss anemia-postoperative 03/12/2011 03/16/2011 Overview: Stable H/H 7.8/23.6 Continue to monitor. Leukocytosis 03/11/2011 03/13/2011 Overview: Resolved, WBC 7.75 today. CAD 03/11/2011 11/27/2016 Overview: s/p CABG x1 (SVG-->RCA). - continue aspirin, beta rocio, ARB - check LDL - rest as per Angina Thrombocytopenia 03/11/2011 03/14/2011 Overview: Resolving, today Plt Ct up to 156. Continue to monitor. pulm insuff/ FVO 03/10/2011 02/13/2016 Overview: Room air. CXR 03/16:"No air space consolidation." Near admission wt. Continue po lasix at discharge.Encourage CDB, PEP and increased ambulation. Fluid overload 03/10/2011 03/17/2011 Overview: Below pre-op weight. Will review chest x-ray this AM and adjust lasix as needed -currently Lasix 20 IV BID. Stress hyperglycemia 03/10/2011 03/13/2011 Overview: No hx DM. BS within normal range. Not requiring exogenous insulin will stop accu checks. Sinus tachycardia 03/10/2011 03/17/2011 Overview: ST today-HR in 100s with systolic B/P 140s-will increase BB 03/16/2011 - rate in 90s-Dr. Morin would like BB increased to 100mg BID Pain 03/10/2011 11/27/2016 Overview: H/o chronic back pain - continue oxycodone, oxycontin SUMMARY 03/08/2011 03/17/2011 Overview: 40 years old male with hx of Marfan syndrome diagnosed 10 years ago presented to OSH for sudden onset of chest pain. CT at OSH showing ascending aortic dissection to RCA. 03/08/2011 Ascending Aortic Arch Repair, proximal descending thoracic aorta with stent, CABGx1 RSVG to RCA, MVR Surgery 03/08/2011 : Frozen elephant trunk of distal aortic arch, proximal descending thoracic arch with stent, CABGx1 RSVG to RCA, MVR Airway Grade: Grade 1 Special Instrumentation: None Principal Dx and Comorbidities: Acute dissection of Ascending Aortic Arch, Marfan's Syndrome, chronic back pain OR Course: RV systolic failure and DHCA 29mins . OR Transfusions: Packed RBC, Platelets and FFP Pacing wires: NO Preop LVEF: Normal RVF: Normal Post CPB LVEF: Normal RVF: Moderate, RV showing some recovery after CABG ICU Problems and Additional Surgeries: Active Consults: pain management Events since last ICU note: RNF POD 2 A/P for Active Problems 03/14/2011: -post op echo completed/ Review CTA with CTS -plavix started per CTS s/p Rober procedure for 6 months -pain management consult -Pain - Changed DEMON[employer] APPLIANCES to dilaudid, continue percocet and oxycodone for breakthrough pain -1.5 liters NC Wean --OOB/ambulate -Depressed mood- flat affect/minimal eye contact -- healing services consulted, monitor TPW out -moderate pericardial effusion per CTA - ordered another echo to assess-03/15 echo-small pericardial effusion -was seen by pain management - on 03/14/2011-reconsulted today-still using DEMONSTRATOR E[employer] G[employer] APPLIANCES a great deal. -blood cultures drawn for low grade fever per fellow on 03/14 - Dr. Joe requested, UA and chest x-ray ordered 03/15 Aortic dissection, ascending 03/08/201104/2016 Overview: H/o Acute ascending aortic arch dissection. POD 10 S/p Aortic root replacement (Niels's), Frozen elephant trunk stent graft of distal aortic arch, proximal descending thoracic aorta with stent, CABG x1 to RCA, MVr (plication). Echo: Niels's procedure) with 32-mm Valsalva Dacron graft. No AI. Pk/Mn 10/5mmhg. - S/P MV repair (plication of the anterior leaflet) with trivial MR. Pk/Mn 4/2mmhg. There is mild RAYMOND with no significant LVOT obstruction" CT done and reviewed. Continue plavix x6 months s/p Niels's procedure at discharge. Marfan syndrome 03/08/2011 03/18/2011 Overview: Diagnosed 10 years ago and has been followed up in [facility]. He has been told his aorta has been growing. Two of his three kids have also een diagnosed Marfan's syndrome documented as of this encounter (statuses as of 08/27/2021) [facility]10[facility]2016 History of Past illness Narrative* Problem Noted Date Resolved Date Angina at rest 02/13/2016 11/27/2016 Overview: Patient with a new type of pain, unlike any he's had before, associated with abdominal swelling. He seems quite uncomfortable. CT reviewed with radiology (uploaded into Via) - no change from prior, no evidence of dissection in root or abdomen. Coronaries not fully evaluated. No central PE. Troponin negative after almost 12 hours (!) of chest pain. But it is nitro responsive... His d-dimer is positive, as well, which is of unknown significance. - trend troponins, MB - ticag 180mg x 1 now, 90mg BID, as ACS most likely given lack of evidence of PE or dissection on CT - heparin gtt with bolus - nitro gtt - still unclear cause of pain (ACS more likely than PE or dissection, given the above), but will transfer to [facility] for further management if unable to control pain on NTG gtt Pericardial effusion 03/17/2011 02/13/2016 Overview: CTA 03/14 postop: MODERATE SIZE PERICARDIAL EFFUSION, MEASURING UP TO 10-MM OVER THE RIGHT VENTRICLE. F/u echo 03/15: "There is small pericardial effusion measuring 0.7 cm. No 2D echo findings suggestive of tamponade." Continue PO lasix at discharge. Echo in one month at f/u. Leukocytosis 03/16/2011 03/18/2011 Overview: Resolving. WBC 9K today. Tmax 100.4. UA negative. Bld Cx no growth 2 days. Encourage CDB, PEP and increased ambulation. Bleeding nose 03/14/2011 03/16/2011 Overview: Pt reports epistaxis starting yesterday. Pt has received two doses of plavix, Asa 162mg and sq heparin. Depressed state 03/13/2011 03/17/2011 Overview: Pt with flat affect/minimal eye contact. Not motivated to participate in care or recommended activities. Will ask healing services to see. Continue to monitor. Hyperlipidemia 03/13/2011 02/13/2016 Overview: H/o HLD. LDL 92 on no medication preop. Continue low dose Lipitor at discharge. Acute blood loss anemia-postoperative 03/12/2011 03/16/2011 Overview: Stable H/H 7.8/23.6 Continue to monitor. Leukocytosis 03/11/2011 03/13/2011 Overview: Resolved, WBC 7.75 today. CAD 03/11/2011 11/27/2016 Overview: s/p CABG x1 (SVG-->RCA). - continue aspirin, beta rocio, ARB - check LDL - rest as per Angina Thrombocytopenia 03/11/2011 03/14/2011 Overview: Resolving, today Plt Ct up to 156. Continue to monitor. pulm insuff/ FVO 03/10/2011 02/13/2016 Overview: Room air. CXR 03/16:"No air space consolidation." Near admission wt. Continue po lasix at discharge.Encourage CDB, PEP and increased ambulation. Fluid overload 03/10/2011 03/17/2011 Overview: Below pre-op weight. Will review chest x-ray this AM and adjust lasix as needed -currently Lasix 20 IV BID. Stress hyperglycemia 03/10/2011 03/13/2011 Overview: No hx DM. BS within normal range. Not requiring exogenous insulin will stop accu checks. Sinus tachycardia 03/10/2011 03/17/2011 Overview: ST today-HR in 100s with systolic B/P 140s-will increase BB 03/16/2011 - rate in 90s-Dr. Morin would like BB increased to 100mg BID Pain 03/10/2011 11/27/2016 Overview: H/o chronic back pain - continue oxycodone, oxycontin SUMMARY 03/08/2011 03/17/2011 Overview: 40 years old male with hx of Marfan syndrome diagnosed 10 years ago presented to OSH for sudden onset of chest pain. CT at OSH showing ascending aortic dissection to RCA. 03/08/2011 Ascending Aortic Arch Repair, proximal descending thoracic aorta with stent, CABGx1 RSVG to RCA, MVR Surgery 03/08/2011 : Frozen elephant trunk of distal aortic arch, proximal descending thoracic arch with stent, CABGx1 RSVG to RCA, MVR Airway Grade: Grade 1 Special Instrumentation: None Principal Dx and Comorbidities: Acute dissection of Ascending Aortic Arch, Marfan's Syndrome, chronic back pain OR Course: RV systolic failure and DHCA 29mins . OR Transfusions: Packed RBC, Platelets and FFP Pacing wires: NO Preop LVEF: Normal RVF: Normal Post CPB LVEF: Normal RVF: Moderate, RV showing some recovery after CABG ICU Problems and Additional Surgeries: Active Consults: pain management Events since last ICU note: RNF POD 2 A/P for Active Problems 03/14/2011: -post op echo completed/ Review CTA with CTS -plavix started per CTS s/p Rober procedure for 6 months -pain management consult -Pain - Changed DEMONSTRATOR [employer] G[employer] APPLIANCES to dilaudid, continue percocet and oxycodone for breakthrough pain -1.5 liters NC Wean --OOB/ambulate -Depressed mood- flat affect/minimal eye contact -- healing services consulted, monitor TPW out -moderate pericardial effusion per CTA - ordered another echo to assess-03/15 echo-small pericardial effusion -was seen by pain management - on 03/14/2011-reconsulted today-still using DEMONSTRATOR E[employer] G[employer] APPLIANCES a great deal. -blood cultures drawn for low grade fever per fellow on 03/14 - Dr. Joe requested, UA and chest x-ray ordered 03/15 Aortic dissection, ascending 03/08/201104/2016 Overview: H/o Acute ascending aortic arch dissection. POD 10 S/p Aortic root replacement (Niels's), Frozen elephant trunk stent graft of distal aortic arch, proximal descending thoracic aorta with stent, CABG x1 to RCA, MVr (plication). Echo: Niels's procedure) with 32-mm Valsalva Dacron graft. No AI. Pk/Mn 10/5mmhg. - S/P MV repair (plication of the anterior leaflet) with trivial MR. Pk/Mn 4/2mmhg. There is mild RAYMOND with no significant LVOT obstruction" CT done and reviewed. Continue plavix x6 months s/p Niesl's procedure at discharge. Marfan syndrome 03/08/2011 03/18/2011 Overview: Diagnosed 10 years ago and has been followed up in [facility]. He has been told his aorta has been growing. Two of his three kids have also een diagnosed Marfan's syndrome documented as of this encounter (statuses as of 09/16/2021) [facility]10-12-2016 History of Past illness Narrative* Problem Noted Date Resolved Date Angina at rest 02/13/2016 11/27/2016 Overview: Patient with a new type of pain, unlike any he's had before, associated with abdominal swelling. He seems quite uncomfortable. CT reviewed with radiology (uploaded into Via) - no change from prior, no evidence of dissection in root or abdomen. Coronaries not fully evaluated. No central PE. Troponin negative after almost 12 hours (!) of chest pain. But it is nitro responsive... His d-dimer is positive, as well, which is of unknown significance. - trend troponins, MB - ticag 180mg x 1 now, 90mg BID, as ACS most likely given lack of evidence of PE or dissection on CT - heparin gtt with bolus - nitro gtt - still unclear cause of pain (ACS more likely than PE or dissection, given the above), but will transfer to [facility] for further management if unable to control pain on NTG gtt Pericardial effusion 03/17/2011 02/13/2016 Overview: CTA 03/14 postop: MODERATE SIZE PERICARDIAL EFFUSION, MEASURING UP TO 10-MM OVER THE RIGHT VENTRICLE. F/u echo 03/15: "There is small pericardial effusion measuring 0.7 cm. No 2D echo findings suggestive of tamponade." Continue PO lasix at discharge. Echo in one month at f/u. Leukocytosis 03/16/2011 03/18/2011 Overview: Resolving. WBC 9K today. Tmax 100.4. UA negative. Bld Cx no growth 2 days. Encourage CDB, PEP and increased ambulation. Bleeding nose 03/14/2011 03/16/2011 Overview: Pt reports epistaxis starting yesterday. Pt has received two doses of plavix, Asa 162mg and sq heparin. Depressed state 03/13/2011 03/17/2011 Overview: Pt with flat affect/minimal eye contact. Not motivated to participate in care or recommended activities. Will ask healing services to see. Continue to monitor. Hyperlipidemia 03/13/2011 02/13/2016 Overview: H/o HLD. LDL 92 on no medication preop. Continue low dose Lipitor at discharge. Acute blood loss anemia-postoperative 03/12/2011 03/16/2011 Overview: Stable H/H 7.8/23.6 Continue to monitor. Leukocytosis 03/11/2011 03/13/2011 Overview: Resolved, WBC 7.75 today. CAD 03/11/2011 11/27/2016 Overview: s/p CABG x1 (SVG-->RCA). - continue aspirin, beta rocio, ARB - check LDL - rest as per Angina Thrombocytopenia 03/11/2011 03/14/2011 Overview: Resolving, today Plt Ct up to 156. Continue to monitor. pulm insuff/ FVO 03/10/2011 02/13/2016 Overview: Room air. CXR 03/16:"No air space consolidation." Near admission wt. Continue po lasix at discharge.Encourage CDB, PEP and increased ambulation. Fluid overload 03/10/2011 03/17/2011 Overview: Below pre-op weight. Will review chest x-ray this AM and adjust lasix as needed -currently Lasix 20 IV BID. Stress hyperglycemia 03/10/2011 03/13/2011 Overview: No hx DM. BS within normal range. Not requiring exogenous insulin will stop accu checks. Sinus tachycardia 03/10/2011 03/17/2011 Overview: ST today-HR in 100s with systolic B/P 140s-will increase BB 03/16/2011 - rate in 90s-Dr. Morin would like BB increased to 100mg BID Pain 03/10/2011 11/27/2016 Overview: H/o chronic back pain - continue oxycodone, oxycontin SUMMARY 03/08/2011 03/17/2011 Overview: 40 years old male with hx of Marfan syndrome diagnosed 10 years ago presented to OSH for sudden onset of chest pain. CT at OSH showing ascending aortic dissection to RCA. 03/08/2011 Ascending Aortic Arch Repair, proximal descending thoracic aorta with stent, CABGx1 RSVG to RCA, MVR Surgery 03/08/2011 : Frozen elephant trunk of distal aortic arch, proximal descending thoracic arch with stent, CABGx1 RSVG to RCA, MVR Airway Grade: Grade 1 Special Instrumentation: None Principal Dx and Comorbidities: Acute dissection of Ascending Aortic Arch, Marfan's Syndrome, chronic back pain OR Course: RV systolic failure and DHCA 29mins . OR Transfusions: Packed RBC, Platelets and FFP Pacing wires: NO Preop LVEF: Normal RVF: Normal Post CPB LVEF: Normal RVF: Moderate, RV showing some recovery after CABG ICU Problems and Additional Surgeries: Active Consults: pain management Events since last ICU note: RNF POD 2 A/P for Active Problems 03/14/2011: -post op echo completed/ Review CTA with CTS -plavix started per CTS s/p Rober procedure for 6 months -pain management consult -Pain - Changed DEMON[employer] APPLIANCES to dilaudid, continue percocet and oxycodone for breakthrough pain -1.5 liters NC Wean --OOB/ambulate -Depressed mood- flat affect/minimal eye contact -- healing services consulted, monitor TPW out -moderate pericardial effusion per CTA - ordered another echo to assess-03/15 echo-small pericardial effusion -was seen by pain management - on 03/14/2011-reconsulted today-still using DEMONSTRATOR [employer] G[employer] APPLIANCES a great deal. -blood cultures drawn for low grade fever per fellow on 03/14 - Dr. Joe requested, UA and chest x-ray ordered 03/15 Aortic dissection, ascending 03/08/201104/2016 Overview: H/o Acute ascending aortic arch dissection. POD 10 S/p Aortic root replacement (Niels's), Frozen elephant trunk stent graft of distal aortic arch, proximal descending thoracic aorta with stent, CABG x1 to RCA, MVr (plication). Echo: Niels's procedure) with 32-mm Valsalva Dacron graft. No AI. Pk/Mn 10/5mmhg. - S/P MV repair (plication of the anterior leaflet) with trivial MR. Pk/Mn 4/2mmhg. There is mild RAYMOND with no significant LVOT obstruction" CT done and reviewed. Continue plavix x6 months s/p Niels's procedure at discharge. Marfan syndrome 03/08/2011 03/18/2011 Overview: Diagnosed 10 years ago and has been followed up in [facility]. He has been told his aorta has been growing. Two of his three kids have also een diagnosed Marfan's syndrome documented as of this encounter (statuses as of 09/23/2021) [facility]10-12-2016 History of Past illness Narrative* Problem Noted Date Resolved Date Angina at rest 02/13/2016 11/27/2016 Overview: Patient with a new type of pain, unlike any he's had before, associated with abdominal swelling. He seems quite uncomfortable. CT reviewed with radiology (uploaded into Via) - no change from prior, no evidence of dissection in root or abdomen. Coronaries not fully evaluated. No central PE. Troponin negative after almost 12 hours (!) of chest pain. But it is nitro responsive... His d-dimer is positive, as well, which is of unknown significance. - trend troponins, MB - ticag 180mg x 1 now, 90mg BID, as ACS most likely given lack of evidence of PE or dissection on CT - heparin gtt with bolus - nitro gtt - still unclear cause of pain (ACS more likely than PE or dissection, given the above), but will transfer to [facility] for further management if unable to control pain on NTG gtt Pericardial effusion 03/17/2011 02/13/2016 Overview: CTA 03/14 postop: MODERATE SIZE PERICARDIAL EFFUSION, MEASURING UP TO 10-MM OVER THE RIGHT VENTRICLE. F/u echo 03/15: "There is small pericardial effusion measuring 0.7 cm. No 2D echo findings suggestive of tamponade." Continue PO lasix at discharge. Echo in one month at f/u. Leukocytosis 03/16/2011 03/18/2011 Overview: Resolving. WBC 9K today. Tmax 100.4. UA negative. Bld Cx no growth 2 days. Encourage CDB, PEP and increased ambulation. Bleeding nose 03/14/2011 03/16/2011 Overview: Pt reports epistaxis starting yesterday. Pt has received two doses of plavix, Asa 162mg and sq heparin. Depressed state 03/13/2011 03/17/2011 Overview: Pt with flat affect/minimal eye contact. Not motivated to participate in care or recommended activities. Will ask healing services to see. Continue to monitor. Hyperlipidemia 03/13/2011 02/13/2016 Overview: H/o HLD. LDL 92 on no medication preop. Continue low dose Lipitor at discharge. Acute blood loss anemia-postoperative 03/12/2011 03/16/2011 Overview: Stable H/H 7.8/23.6 Continue to monitor. Leukocytosis 03/11/2011 03/13/2011 Overview: Resolved, WBC 7.75 today. CAD 03/11/2011 11/27/2016 Overview: s/p CABG x1 (SVG-->RCA). - continue aspirin, beta rocio, ARB - check LDL - rest as per Angina Thrombocytopenia 03/11/2011 03/14/2011 Overview: Resolving, today Plt Ct up to 156. Continue to monitor. pulm insuff/ FVO 03/10/2011 02/13/2016 Overview: Room air. CXR 03/16:"No air space consolidation." Near admission wt. Continue po lasix at discharge.Encourage CDB, PEP and increased ambulation. Fluid overload 03/10/2011 03/17/2011 Overview: Below pre-op weight. Will review chest x-ray this AM and adjust lasix as needed -currently Lasix 20 IV BID. Stress hyperglycemia 03/10/2011 03/13/2011 Overview: No hx DM. BS within normal range. Not requiring exogenous insulin will stop accu checks. Sinus tachycardia 03/10/2011 03/17/2011 Overview: ST today-HR in 100s with systolic B/P 140s-will increase BB 03/16/2011 - rate in 90s-Dr. Morin would like BB increased to 100mg BID Pain 03/10/2011 11/27/2016 Overview: H/o chronic back pain - continue oxycodone, oxycontin SUMMARY 03/08/2011 03/17/2011 Overview: 40 years old male with hx of Marfan syndrome diagnosed 10 years ago presented to OSH for sudden onset of chest pain. CT at OSH showing ascending aortic dissection to RCA. 03/08/2011 Ascending Aortic Arch Repair, proximal descending thoracic aorta with stent, CABGx1 RSVG to RCA, MVR Surgery 03/08/2011 : Frozen elephant trunk of distal aortic arch, proximal descending thoracic arch with stent, CABGx1 RSVG to RCA, MVR Airway Grade: Grade 1 Special Instrumentation: None Principal Dx and Comorbidities: Acute dissection of Ascending Aortic Arch, Marfan's Syndrome, chronic back pain OR Course: RV systolic failure and DHCA 29mins . OR Transfusions: Packed RBC, Platelets and FFP Pacing wires: NO Preop LVEF: Normal RVF: Normal Post CPB LVEF: Normal RVF: Moderate, RV showing some recovery after CABG ICU Problems and Additional Surgeries: Active Consults: pain management Events since last ICU note: RNF POD 2 A/P for Active Problems 03/14/2011: -post op echo completed/ Review CTA with CTS -plavix started per CTS s/p Rober procedure for 6 months -pain management consult -Pain - Changed DEMONSTR[employer] APPLIANCES to dilaudid, continue percocet and oxycodone for breakthrough pain -1.5 liters NC Wean --OOB/ambulate -Depressed mood- flat affect/minimal eye contact -- healing services consulted, monitor TPW out -moderate pericardial effusion per CTA - ordered another echo to assess-03/15 echo-small pericardial effusion -was seen by pain management - on 03/14/2011-reconsulted today-still using DEMONSTRATOR E[employer] G[employer] APPLIANCES a great deal. -blood cultures drawn for low grade fever per fellow on 03/14 - Dr. Joe requested, UA and chest x-ray ordered 03/15 Aortic dissection, ascending 03/08/201104/2016 Overview: H/o Acute ascending aortic arch dissection. POD 10 S/p Aortic root replacement (Niels's), Frozen elephant trunk stent graft of distal aortic arch, proximal descending thoracic aorta with stent, CABG x1 to RCA, MVr (plication). Echo: Niels's procedure) with 32-mm Valsalva Dacron graft. No AI. Pk/Mn 10/5mmhg. - S/P MV repair (plication of the anterior leaflet) with trivial MR. Pk/Mn 4/2mmhg. There is mild RAYMOND with no significant LVOT obstruction" CT done and reviewed. Continue plavix x6 months s/p Niels's procedure at discharge. Marfan syndrome 03/08/2011 03/18/2011 Overview: Diagnosed 10 years ago and has been followed up in [facility]. He has been told his aorta has been growing. Two of his three kids have also een diagnosed Marfan's syndrome documented as of this encounter (statuses as of 10/07/2021) [facility]10-12-2016 History of Past illness Narrative* Problem Noted Date Resolved Date Angina at rest 02/13/2016 11/27/2016 Overview: Patient with a new type of pain, unlike any he's had before, associated with abdominal swelling. He seems quite uncomfortable. CT reviewed with radiology (uploaded into Via) - no change from prior, no evidence of dissection in root or abdomen. Coronaries not fully evaluated. No central PE. Troponin negative after almost 12 hours (!) of chest pain. But it is nitro responsive... His d-dimer is positive, as well, which is of unknown significance. - trend troponins, MB - ticag 180mg x 1 now, 90mg BID, as ACS most likely given lack of evidence of PE or dissection on CT - heparin gtt with bolus - nitro gtt - still unclear cause of pain (ACS more likely than PE or dissection, given the above), but will transfer to [facility] for further management if unable to control pain on NTG gtt Pericardial effusion 03/17/2011 02/13/2016 Overview: CTA 03/14 postop: MODERATE SIZE PERICARDIAL EFFUSION, MEASURING UP TO 10-MM OVER THE RIGHT VENTRICLE. F/u echo 03/15: "There is small pericardial effusion measuring 0.7 cm. No 2D echo findings suggestive of tamponade." Continue PO lasix at discharge. Echo in one month at f/u. Leukocytosis 03/16/2011 03/18/2011 Overview: Resolving. WBC 9K today. Tmax 100.4. UA negative. Bld Cx no growth 2 days. Encourage CDB, PEP and increased ambulation. Bleeding nose 03/14/2011 03/16/2011 Overview: Pt reports epistaxis starting yesterday. Pt has received two doses of plavix, Asa 162mg and sq heparin. Depressed state 03/13/2011 03/17/2011 Overview: Pt with flat affect/minimal eye contact. Not motivated to participate in care or recommended activities. Will ask healing services to see. Continue to monitor. Hyperlipidemia 03/13/2011 02/13/2016 Overview: H/o HLD. LDL 92 on no medication preop. Continue low dose Lipitor at discharge. Acute blood loss anemia-postoperative 03/12/2011 03/16/2011 Overview: Stable H/H 7.8/23.6 Continue to monitor. Leukocytosis 03/11/2011 03/13/2011 Overview: Resolved, WBC 7.75 today. CAD 03/11/2011 11/27/2016 Overview: s/p CABG x1 (SVG-->RCA). - continue aspirin, beta rocio, ARB - check LDL - rest as per Angina Thrombocytopenia 03/11/2011 03/14/2011 Overview: Resolving, today Plt Ct up to 156. Continue to monitor. pulm insuff/ FVO 03/10/2011 02/13/2016 Overview: Room air. CXR 03/16:"No air space consolidation." Near admission wt. Continue po lasix at discharge.Encourage CDB, PEP and increased ambulation. Fluid overload 03/10/2011 03/17/2011 Overview: Below pre-op weight. Will review chest x-ray this AM and adjust lasix as needed -currently Lasix 20 IV BID. Stress hyperglycemia 03/10/2011 03/13/2011 Overview: No hx DM. BS within normal range. Not requiring exogenous insulin will stop accu checks. Sinus tachycardia 03/10/2011 03/17/2011 Overview: ST today-HR in 100s with systolic B/P 140s-will increase BB 03/16/2011 - rate in 90s-Dr. Morin would like BB increased to 100mg BID Pain 03/10/2011 11/27/2016 Overview: H/o chronic back pain - continue oxycodone, oxycontin SUMMARY 03/08/2011 03/17/2011 Overview: 40 years old male with hx of Marfan syndrome diagnosed 10 years ago presented to OSH for sudden onset of chest pain. CT at OSH showing ascending aortic dissection to RCA. 03/08/2011 Ascending Aortic Arch Repair, proximal descending thoracic aorta with stent, CABGx1 RSVG to RCA, MVR Surgery 03/08/2011 : Frozen elephant trunk of distal aortic arch, proximal descending thoracic arch with stent, CABGx1 RSVG to RCA, MVR Airway Grade: Grade 1 Special Instrumentation: None Principal Dx and Comorbidities: Acute dissection of Ascending Aortic Arch, Marfan's Syndrome, chronic back pain OR Course: RV systolic failure and DHCA 29mins . OR Transfusions: Packed RBC, Platelets and FFP Pacing wires: NO Preop LVEF: Normal RVF: Normal Post CPB LVEF: Normal RVF: Moderate, RV showing some recovery after CABG ICU Problems and Additional Surgeries: Active Consults: pain management Events since last ICU note: RNF POD 2 A/P for Active Problems 03/14/2011: -post op echo completed/ Review CTA with CTS -plavix started per CTS s/p Rober procedure for 6 months -pain management consult -Pain - Changed DEMONSTR[employer] APPLIANCES to dilaudid, continue percocet and oxycodone for breakthrough pain -1.5 liters NC Wean --OOB/ambulate -Depressed mood- flat affect/minimal eye contact -- healing services consulted, monitor TPW out -moderate pericardial effusion per CTA - ordered another echo to assess-03/15 echo-small pericardial effusion -was seen by pain management - on 03/14/2011-reconsulted today-still using DEMONSTRATOR ELECTR[employer] G[employer] APPLIANCES a great deal. -blood cultures drawn for low grade fever per fellow on 03/14 - Dr. Joe requested, UA and chest x-ray ordered 03/15 Aortic dissection, ascending 03/08/201104/2016 Overview: H/o Acute ascending aortic arch dissection. POD 10 S/p Aortic root replacement (Niels's), Frozen elephant trunk stent graft of distal aortic arch, proximal descending thoracic aorta with stent, CABG x1 to RCA, MVr (plication). Echo: Niels's procedure) with 32-mm Valsalva Dacron graft. No AI. Pk/Mn 10/5mmhg. - S/P MV repair (plication of the anterior leaflet) with trivial MR. Pk/Mn 4/2mmhg. There is mild RAYMOND with no significant LVOT obstruction" CT done and reviewed. Continue plavix x6 months s/p Niels's procedure at discharge. Marfan syndrome 03/08/2011 03/18/2011 Overview: Diagnosed 10 years ago and has been followed up in [facility]. He has been told his aorta has been growing. Two of his three kids have also een diagnosed Marfan's syndrome documented as of this encounter (statuses as of 10/07/2021) [facility]10[facility]2016 History of Past illness Narrative* Problem Noted Date Resolved Date Angina at rest 02/13/2016 11/27/2016 Overview: Patient with a new type of pain, unlike any he's had before, associated with abdominal swelling. He seems quite uncomfortable. CT reviewed with radiology (uploaded into Via) - no change from prior, no evidence of dissection in root or abdomen. Coronaries not fully evaluated. No central PE. Troponin negative after almost 12 hours (!) of chest pain. But it is nitro responsive... His d-dimer is positive, as well, which is of unknown significance. - trend troponins, MB - ticag 180mg x 1 now, 90mg BID, as ACS most likely given lack of evidence of PE or dissection on CT - heparin gtt with bolus - nitro gtt - still unclear cause of pain (ACS more likely than PE or dissection, given the above), but will transfer to [facility] for further management if unable to control pain on NTG gtt Pericardial effusion 03/17/2011 02/13/2016 Overview: CTA 03/14 postop: MODERATE SIZE PERICARDIAL EFFUSION, MEASURING UP TO 10-MM OVER THE RIGHT VENTRICLE. F/u echo 03/15: "There is small pericardial effusion measuring 0.7 cm. No 2D echo findings suggestive of tamponade." Continue PO lasix at discharge. Echo in one month at f/u. Leukocytosis 03/16/2011 03/18/2011 Overview: Resolving. WBC 9K today. Tmax 100.4. UA negative. Bld Cx no growth 2 days. Encourage CDB, PEP and increased ambulation. Bleeding nose 03/14/2011 03/16/2011 Overview: Pt reports epistaxis starting yesterday. Pt has received two doses of plavix, Asa 162mg and sq heparin. Depressed state 03/13/2011 03/17/2011 Overview: Pt with flat affect/minimal eye contact. Not motivated to participate in care or recommended activities. Will ask healing services to see. Continue to monitor. Hyperlipidemia 03/13/2011 02/13/2016 Overview: H/o HLD. LDL 92 on no medication preop. Continue low dose Lipitor at discharge. Acute blood loss anemia-postoperative 03/12/2011 03/16/2011 Overview: Stable H/H 7.8/23.6 Continue to monitor. Leukocytosis 03/11/2011 03/13/2011 Overview: Resolved, WBC 7.75 today. CAD 03/11/2011 11/27/2016 Overview: s/p CABG x1 (SVG-->RCA). - continue aspirin, beta rocio, ARB - check LDL - rest as per Angina Thrombocytopenia 03/11/2011 03/14/2011 Overview: Resolving, today Plt Ct up to 156. Continue to monitor. pulm insuff/ FVO 03/10/2011 02/13/2016 Overview: Room air. CXR 03/16:"No air space consolidation." Near admission wt. Continue po lasix at discharge.Encourage CDB, PEP and increased ambulation. Fluid overload 03/10/2011 03/17/2011 Overview: Below pre-op weight. Will review chest x-ray this AM and adjust lasix as needed -currently Lasix 20 IV BID. Stress hyperglycemia 03/10/2011 03/13/2011 Overview: No hx DM. BS within normal range. Not requiring exogenous insulin will stop accu checks. Sinus tachycardia 03/10/2011 03/17/2011 Overview: ST today-HR in 100s with systolic B/P 140s-will increase BB 03/16/2011 - rate in 90s-Dr. Morin would like BB increased to 100mg BID Pain 03/10/2011 11/27/2016 Overview: H/o chronic back pain - continue oxycodone, oxycontin SUMMARY 03/08/2011 03/17/2011 Overview: 40 years old male with hx of Marfan syndrome diagnosed 10 years ago presented to OSH for sudden onset of chest pain. CT at OSH showing ascending aortic dissection to RCA. 03/08/2011 Ascending Aortic Arch Repair, proximal descending thoracic aorta with stent, CABGx1 RSVG to RCA, MVR Surgery 03/08/2011 : Frozen elephant trunk of distal aortic arch, proximal descending thoracic arch with stent, CABGx1 RSVG to RCA, MVR Airway Grade: Grade 1 Special Instrumentation: None Principal Dx and Comorbidities: Acute dissection of Ascending Aortic Arch, Marfan's Syndrome, chronic back pain OR Course: RV systolic failure and DHCA 29mins . OR Transfusions: Packed RBC, Platelets and FFP Pacing wires: NO Preop LVEF: Normal RVF: Normal Post CPB LVEF: Normal RVF: Moderate, RV showing some recovery after CABG ICU Problems and Additional Surgeries: Active Consults: pain management Events since last ICU note: RNF POD 2 A/P for Active Problems 03/14/2011: -post op echo completed/ Review CTA with CTS -plavix started per CTS s/p Rober procedure for 6 months -pain management consult -Pain - Changed DEMONSTRATOR [employer] APPLIANCES to dilaudid, continue percocet and oxycodone for breakthrough pain -1.5 liters NC Wean --OOB/ambulate -Depressed mood- flat affect/minimal eye contact -- healing services consulted, monitor TPW out -moderate pericardial effusion per CTA - ordered another echo to assess-03/15 echo-small pericardial effusion -was seen by pain management - on 03/14/2011-reconsulted today-still using DEMONSTRATOR E[employer] G[employer] APPLIANCES a great deal. -blood cultures drawn for low grade fever per fellow on 03/14 - Dr. Joe requested, UA and chest x-ray ordered 03/15 Aortic dissection, ascending 03/08/201104/2016 Overview: H/o Acute ascending aortic arch dissection. POD 10 S/p Aortic root replacement (Niels's), Frozen elephant trunk stent graft of distal aortic arch, proximal descending thoracic aorta with stent, CABG x1 to RCA, MVr (plication). Echo: Niels's procedure) with 32-mm Valsalva Dacron graft. No AI. Pk/Mn 10/5mmhg. - S/P MV repair (plication of the anterior leaflet) with trivial MR. Pk/Mn 4/2mmhg. There is mild RAYMOND with no significant LVOT obstruction" CT done and reviewed. Continue plavix x6 months s/p Niels's procedure at discharge. Marfan syndrome 03/08/2011 03/18/2011 Overview: Diagnosed 10 years ago and has been followed up in [facility]. He has been told his aorta has been growing. Two of his three kids have also een diagnosed Marfan's syndrome documented as of this encounter (statuses as of 10/10/2021) [facility]10-12-2016 History of Past illness Narrative* Problem Noted Date Resolved Date Angina at rest 02/13/2016 11/27/2016 Overview: Patient with a new type of pain, unlike any he's had before, associated with abdominal swelling. He seems quite uncomfortable. CT reviewed with radiology (uploaded into Via) - no change from prior, no evidence of dissection in root or abdomen. Coronaries not fully evaluated. No central PE. Troponin negative after almost 12 hours (!) of chest pain. But it is nitro responsive... His d-dimer is positive, as well, which is of unknown significance. - trend troponins, MB - ticag 180mg x 1 now, 90mg BID, as ACS most likely given lack of evidence of PE or dissection on CT - heparin gtt with bolus - nitro gtt - still unclear cause of pain (ACS more likely than PE or dissection, given the above), but will transfer to [facility] for further management if unable to control pain on NTG gtt Pericardial effusion 03/17/2011 02/13/2016 Overview: CTA 03/14 postop: MODERATE SIZE PERICARDIAL EFFUSION, MEASURING UP TO 10-MM OVER THE RIGHT VENTRICLE. F/u echo 03/15: "There is small pericardial effusion measuring 0.7 cm. No 2D echo findings suggestive of tamponade." Continue PO lasix at discharge. Echo in one month at f/u. Leukocytosis 03/16/2011 03/18/2011 Overview: Resolving. WBC 9K today. Tmax 100.4. UA negative. Bld Cx no growth 2 days. Encourage CDB, PEP and increased ambulation. Bleeding nose 03/14/2011 03/16/2011 Overview: Pt reports epistaxis starting yesterday. Pt has received two doses of plavix, Asa 162mg and sq heparin. Depressed state 03/13/2011 03/17/2011 Overview: Pt with flat affect/minimal eye contact. Not motivated to participate in care or recommended activities. Will ask healing services to see. Continue to monitor. Hyperlipidemia 03/13/2011 02/13/2016 Overview: H/o HLD. LDL 92 on no medication preop. Continue low dose Lipitor at discharge. Acute blood loss anemia-postoperative 03/12/2011 03/16/2011 Overview: Stable H/H 7.8/23.6 Continue to monitor. Leukocytosis 03/11/2011 03/13/2011 Overview: Resolved, WBC 7.75 today. CAD 03/11/2011 11/27/2016 Overview: s/p CABG x1 (SVG-->RCA). - continue aspirin, beta rocio, ARB - check LDL - rest as per Angina Thrombocytopenia 03/11/2011 03/14/2011 Overview: Resolving, today Plt Ct up to 156. Continue to monitor. pulm insuff/ FVO 03/10/2011 02/13/2016 Overview: Room air. CXR 03/16:"No air space consolidation." Near admission wt. Continue po lasix at discharge.Encourage CDB, PEP and increased ambulation. Fluid overload 03/10/2011 03/17/2011 Overview: Below pre-op weight. Will review chest x-ray this AM and adjust lasix as needed -currently Lasix 20 IV BID. Stress hyperglycemia 03/10/2011 03/13/2011 Overview: No hx DM. BS within normal range. Not requiring exogenous insulin will stop accu checks. Sinus tachycardia 03/10/2011 03/17/2011 Overview: ST today-HR in 100s with systolic B/P 140s-will increase BB 03/16/2011 - rate in 90s-Dr. Morin would like BB increased to 100mg BID Pain 03/10/2011 11/27/2016 Overview: H/o chronic back pain - continue oxycodone, oxycontin SUMMARY 03/08/2011 03/17/2011 Overview: 40 years old male with hx of Marfan syndrome diagnosed 10 years ago presented to OSH for sudden onset of chest pain. CT at OSH showing ascending aortic dissection to RCA. 03/08/2011 Ascending Aortic Arch Repair, proximal descending thoracic aorta with stent, CABGx1 RSVG to RCA, MVR Surgery 03/08/2011 : Frozen elephant trunk of distal aortic arch, proximal descending thoracic arch with stent, CABGx1 RSVG to RCA, MVR Airway Grade: Grade 1 Special Instrumentation: None Principal Dx and Comorbidities: Acute dissection of Ascending Aortic Arch, Marfan's Syndrome, chronic back pain OR Course: RV systolic failure and DHCA 29mins . OR Transfusions: Packed RBC, Platelets and FFP Pacing wires: NO Preop LVEF: Normal RVF: Normal Post CPB LVEF: Normal RVF: Moderate, RV showing some recovery after CABG ICU Problems and Additional Surgeries: Active Consults: pain management Events since last ICU note: RNF POD 2 A/P for Active Problems 03/14/2011: -post op echo completed/ Review CTA with CTS -plavix started per CTS s/p Rober procedure for 6 months -pain management consult -Pain - Changed DEMON[employer] APPLIANC[employer] to dilaudid, continue percocet and oxycodone for breakthrough pain -1.5 liters NC Wean --OOB/ambulate -Depressed mood- flat affect/minimal eye contact -- healing services consulted, monitor TPW out -moderate pericardial effusion per CTA - ordered another echo to assess-03/15 echo-small pericardial effusion -was seen by pain management - on 03/14/2011-reconsulted today-still using DEMONSTR[employer] APPLIANCES a great deal. -blood cultures drawn for low grade fever per fellow on 03/14 - Dr. Joe requested, UA and chest x-ray ordered 03/15 Aortic dissection, ascending 03/08/201104/2016 Overview: H/o Acute ascending aortic arch dissection. POD 10 S/p Aortic root replacement (Niels's), Frozen elephant trunk stent graft of distal aortic arch, proximal descending thoracic aorta with stent, CABG x1 to RCA, MVr (plication). Echo: Niels's procedure) with 32-mm Valsalva Dacron graft. No AI. Pk/Mn 10/5mmhg. - S/P MV repair (plication of the anterior leaflet) with trivial MR. Pk/Mn 4/2mmhg. There is mild RAYMOND with no significant LVOT obstruction" CT done and reviewed. Continue plavix x6 months s/p Niels's procedure at discharge. Marfan syndrome 03/08/2011 03/18/2011 Overview: Diagnosed 10 years ago and has been followed up in [facility]. He has been told his aorta has been growing. Two of his three kids have also een diagnosed Marfan's syndrome documented as of this encounter (statuses as of 10/18/2021) [facility]10-12-2016 History of Past illness Narrative* Problem Noted Date Resolved Date Angina at rest 02/13/2016 11/27/2016 Overview: Patient with a new type of pain, unlike any he's had before, associated with abdominal swelling. He seems quite uncomfortable. CT reviewed with radiology (uploaded into Via) - no change from prior, no evidence of dissection in root or abdomen. Coronaries not fully evaluated. No central PE. Troponin negative after almost 12 hours (!) of chest pain. But it is nitro responsive... His d-dimer is positive, as well, which is of unknown significance. - trend troponins, MB - ticag 180mg x 1 now, 90mg BID, as ACS most likely given lack of evidence of PE or dissection on CT - heparin gtt with bolus - nitro gtt - still unclear cause of pain (ACS more likely than PE or dissection, given the above), but will transfer to [facility] for further management if unable to control pain on NTG gtt Pericardial effusion 03/17/2011 02/13/2016 Overview: CTA 03/14 postop: MODERATE SIZE PERICARDIAL EFFUSION, MEASURING UP TO 10-MM OVER THE RIGHT VENTRICLE. F/u echo 03/15: "There is small pericardial effusion measuring 0.7 cm. No 2D echo findings suggestive of tamponade." Continue PO lasix at discharge. Echo in one month at f/u. Leukocytosis 03/16/2011 03/18/2011 Overview: Resolving. WBC 9K today. Tmax 100.4. UA negative. Bld Cx no growth 2 days. Encourage CDB, PEP and increased ambulation. Bleeding nose 03/14/2011 03/16/2011 Overview: Pt reports epistaxis starting yesterday. Pt has received two doses of plavix, Asa 162mg and sq heparin. Depressed state 03/13/2011 03/17/2011 Overview: Pt with flat affect/minimal eye contact. Not motivated to participate in care or recommended activities. Will ask healing services to see. Continue to monitor. Hyperlipidemia 03/13/2011 02/13/2016 Overview: H/o HLD. LDL 92 on no medication preop. Continue low dose Lipitor at discharge. Acute blood loss anemia-postoperative 03/12/2011 03/16/2011 Overview: Stable H/H 7.8/23.6 Continue to monitor. Leukocytosis 03/11/2011 03/13/2011 Overview: Resolved, WBC 7.75 today. CAD 03/11/2011 11/27/2016 Overview: s/p CABG x1 (SVG-->RCA). - continue aspirin, beta rocio, ARB - check LDL - rest as per Angina Thrombocytopenia 03/11/2011 03/14/2011 Overview: Resolving, today Plt Ct up to 156. Continue to monitor. pulm insuff/ FVO 03/10/2011 02/13/2016 Overview: Room air. CXR 03/16:"No air space consolidation." Near admission wt. Continue po lasix at discharge.Encourage CDB, PEP and increased ambulation. Fluid overload 03/10/2011 03/17/2011 Overview: Below pre-op weight. Will review chest x-ray this AM and adjust lasix as needed -currently Lasix 20 IV BID. Stress hyperglycemia 03/10/2011 03/13/2011 Overview: No hx DM. BS within normal range. Not requiring exogenous insulin will stop accu checks. Sinus tachycardia 03/10/2011 03/17/2011 Overview: ST today-HR in 100s with systolic B/P 140s-will increase BB 03/16/2011 - rate in 90s-Dr. Morin would like BB increased to 100mg BID Pain 03/10/2011 11/27/2016 Overview: H/o chronic back pain - continue oxycodone, oxycontin SUMMARY 03/08/2011 03/17/2011 Overview: 40 years old male with hx of Marfan syndrome diagnosed 10 years ago presented to OSH for sudden onset of chest pain. CT at OSH showing ascending aortic dissection to RCA. 03/08/2011 Ascending Aortic Arch Repair, proximal descending thoracic aorta with stent, CABGx1 RSVG to RCA, MVR Surgery 03/08/2011 : Frozen elephant trunk of distal aortic arch, proximal descending thoracic arch with stent, CABGx1 RSVG to RCA, MVR Airway Grade: Grade 1 Special Instrumentation: None Principal Dx and Comorbidities: Acute dissection of Ascending Aortic Arch, Marfan's Syndrome, chronic back pain OR Course: RV systolic failure and DHCA 29mins . OR Transfusions: Packed RBC, Platelets and FFP Pacing wires: NO Preop LVEF: Normal RVF: Normal Post CPB LVEF: Normal RVF: Moderate, RV showing some recovery after CABG ICU Problems and Additional Surgeries: Active Consults: pain management Events since last ICU note: RNF POD 2 A/P for Active Problems 03/14/2011: -post op echo completed/ Review CTA with CTS -plavix started per CTS s/p Rober procedure for 6 months -pain management consult -Pain - Changed DEMON[employer] APPLIANCES to dilaudid, continue percocet and oxycodone for breakthrough pain -1.5 liters NC Wean --OOB/ambulate -Depressed mood- flat affect/minimal eye contact -- healing services consulted, monitor TPW out -moderate pericardial effusion per CTA - ordered another echo to assess-03/15 echo-small pericardial effusion -was seen by pain management - on 03/14/2011-reconsulted today-still using DEMONSTRATOR E[employer] G[employer] APPLIANCES a great deal. -blood cultures drawn for low grade fever per fellow on 03/14 - Dr. Joe requested, UA and chest x-ray ordered 03/15 Aortic dissection, ascending 03/08/201104/2016 Overview: H/o Acute ascending aortic arch dissection. POD 10 S/p Aortic root replacement (Niels's), Frozen elephant trunk stent graft of distal aortic arch, proximal descending thoracic aorta with stent, CABG x1 to RCA, MVr (plication). Echo: Niels's procedure) with 32-mm Valsalva Dacron graft. No AI. Pk/Mn 10/5mmhg. - S/P MV repair (plication of the anterior leaflet) with trivial MR. Pk/Mn 4/2mmhg. There is mild RAYMOND with no significant LVOT obstruction" CT done and reviewed. Continue plavix x6 months s/p Niels's procedure at discharge. Marfan syndrome 03/08/2011 03/18/2011 Overview: Diagnosed 10 years ago and has been followed up in [facility]. He has been told his aorta has been growing. Two of his three kids have also een diagnosed Marfan's syndrome documented as of this encounter (statuses as of 02/07/2022) [facility]10-12-2016 History of Past illness Narrative* Problem Noted Date Diagnosed Date Resolved Date Angina at rest 02/13/2016 11/27/2016 Overview: Patient with a new type of pain, unlike any he's had before, associated with abdominal swelling. He seems quite uncomfortable. CT reviewed with radiology (uploaded into Via) - no change from prior, no evidence of dissection in root or abdomen. Coronaries not fully evaluated. No central PE. Troponin negative after almost 12 hours (!) of chest pain. But it is nitro responsive... His d-dimer is positive, as well, which is of unknown significance. - trend troponins, MB - ticag 180mg x 1 now, 90mg BID, as ACS most likely given lack of evidence of PE or dissection on CT - heparin gtt with bolus - nitro gtt - still unclear cause of pain (ACS more likely than PE or dissection, given the above), but will transfer to [facility] for further management if unable to control pain on NTG gtt Pericardial effusion 03/17/2011 016 Overview: CTA 03/14 postop: MODERATE SIZE PERICARDIAL EFFUSION, MEASURING UP TO 10-MM OVER THE RIGHT VENTRICLE. F/u echo 03/15: "There is small pericardial effusion measuring 0.7 cm. No 2D echo findings suggestive of tamponade." Continue PO lasix at discharge. Echo in one month at f/u. Leukocytosis 03/16/2011 03/18/2011 Overview: Resolving. WBC 9K today. Tmax 100.4. UA negative. Bld Cx no growth 2 days. Encourage CDB, PEP and increased ambulation. Bleeding nose 03/14/2011 03/16/2011 Overview: Pt reports epistaxis starting yesterday. Pt has received two doses of plavix, Asa 162mg and sq heparin. Depressed state 03/13/2011 03/17/2011 Overview: Pt with flat affect/minimal eye contact. Not motivated to participate in care or recommended activities. Will ask healing services to see. Continue to monitor. Hyperlipidemia 03/13/2011 02/13/2016 Overview: H/o HLD. LDL 92 on no medication preop. Continue low dose Lipitor at discharge. Acute blood loss anemia-postoperative 03/12/2011 03/16/2011 Overview: Stable H/H 7.8/23.6 Continue to monitor. Leukocytosis 03/11/2011 03/13/2011 Overview: Resolved, WBC 7.75 today. CAD 03/11/2011 11/27/2016 Overview: s/p CABG x1 (SVG-->RCA). - continue aspirin, beta rocio, ARB - check LDL - rest as per Angina Thrombocytopenia 03/11/2011 03/14/2011 Overview: Resolving, today Plt Ct up to 156. Continue to monitor. pulm insuff/ FVO 03/10/2011 02/13/2016 Overview: Room air. CXR 03/16:"No air space consolidation." Near admission wt. Continue po lasix at discharge.Encourage CDB, PEP and increased ambulation. Fluid overload 03/10/2011 03/17/2011 Overview: Below pre-op weight. Will review chest x-ray this AM and adjust lasix as needed -currently Lasix 20 IV BID. Stress hyperglycemia 03/10/2011 011 Overview: No hx DM. BS within normal range. Not requiring exogenous insulin will stop accu checks. Sinus tachycardia 03/10/2011 03/17/2011 Overview: ST today-HR in 100s with systolic B/P 140s-will increase BB 03/16/2011 - rate in 90s-Dr. Morin would like BB increased to 100mg BID Pain 03/10/2011 11/27/2016 Overview: H/o chronic back pain - continue oxycodone, oxycontin SUMMARY 03/08/2011 03/17/2011 Overview: 40 years old male with hx of Marfan syndrome diagnosed 10 years ago presented to OSH for sudden onset of chest pain. CT at OSH showing ascending aortic dissection to RCA. 03/08/2011 Ascending Aortic Arch Repair, proximal descending thoracic aorta with stent, CABGx1 RSVG to RCA, MVR Surgery 03/08/2011 : Frozen elephant trunk of distal aortic arch, proximal descending thoracic arch with stent, CABGx1 RSVG to RCA, MVR Airway Grade: Grade 1 Special Instrumentation: None Principal Dx and Comorbidities: Acute dissection of Ascending Aortic Arch, Marfan's Syndrome, chronic back pain OR Course: RV systolic failure and DHCA 29mins . OR Transfusions: Packed RBC, Platelets and FFP Pacing wires: NO Preop LVEF: Normal RVF: Normal Post CPB LVEF: Normal RVF: Moderate, RV showing some recovery after CABG ICU Problems and Additional Surgeries: Active Consults: pain management Events since last ICU note: RNF POD 2 A/P for Active Problems 03/14/2011: -post op echo completed/ Review CTA with CTS -plavix started per CTS s/p Rober procedure for 6 months -pain management consult -Pain - Changed DEMON[employer] APPLIANCES to dilaudid, continue percocet and oxycodone for breakthrough pain -1.5 liters NC Wean --OOB/ambulate -Depressed mood- flat affect/minimal eye contact -- healing services consulted, monitor TPW out -moderate pericardial effusion per CTA - ordered another echo to assess-03/15 echo-small pericardial effusion -was seen by pain management - on 03/14/2011-reconsulted today-still using DEMONSTRATOR E[employer] G[employer] APPLIANCES a great deal. -blood cultures drawn for low grade fever per fellow on 03/14 - Dr. Joe requested, UA and chest x-ray ordered 03/15 Aortic dissection, ascending 03/08/2011 02/13/2016 Overview: H/o Acute ascending aortic arch dissection. POD 10 S/p Aortic root replacement (Niels's), Frozen elephant trunk stent graft of distal aortic arch, proximal descending thoracic aorta with stent, CABG x1 to RCA, MVr (plication). Echo: Niels's procedure) with 32-mm Valsalva Dacron graft. No AI. Pk/Mn 10/5mmhg. - S/P MV repair (plication of the anterior leaflet) with trivial MR. Pk/Mn 4/2mmhg. There is mild RAYMOND with no significant LVOT obstruction" CT done and reviewed. Continue plavix x6 months s/p Niels's procedure at discharge. Marfan syndrome 03/08/2011 03/18/2011 Overview: Diagnosed 10 years ago and has been followed up in [facility]. He has been told his aorta has been growing. Two of his three kids have also een diagnosed Marfan's syndrome documented as of this encounter (statuses as of 11/26/2022) [facility]11-05-2011 Evaluation note* Diagnosis Onset Date Resolution Status Elevated brain natriuretic peptide (BNP) level resolved Elevated troponin resolved Encephalopathy acute resolve d H/O coronary artery bypass surgery March 08, 2011 resolved History of mitral valve repair March 08, 2011 resolved Hx of ascending aorta replacement March 08, 2011 resolved Hypokalemia resolved Pneumonia resolved SOB (shortness of breath) re solved [facility] Work Phone: Discharge summary Author Isaak Gallagher [facility] July 31, 2023 4:51pm Note Date/Time July 31, 2023 4:4 1pm [facility] Medical Records Department [address] [place] [address] Instructions for Home/Discharge Instructions 07/31/23 1640 MR#: [id number] Acct: [id number] Name: LEIDY DC Rep #:[id number] : [id number] 52 From: Isaak Gallagher DO PCP: Dr. Dhaval Braden MD Status:AD M OLESYA Discharge Instructions Diet Discharge Diet: 1800 Calorie Control Diet Activity Discharge Activity: Return to Normal Activity Weight Bearing Status: Full weight bearing Follow Up Care Test Results: Test results from this visit will be discussed in further detail at your follow- up appointment, if applicable. Discharge Plan Admission Admit Date/Time: 07/30/23 14:44 Primary Reason for Your Visit: uncontrolled newly diagnosed Type 2 DM Attending Provider: Isaak Gallagher Primary Care Provider: Dhaval Braden Consulting Providers: Daquan Miller Instructions Additional Instructions / Restrictions: Check your blood sugars before each meal, you may give yourself additional Humalog insulin per sliding scale: 200?250: 5 units subcu, 251?300: 8 units subcu, 301?350: 12 units subcu Discharge Orders/Prescriptions Prescriptions: New insulin glargine-yfgn 100 unit/mL (3 mL) Insulin Pen 20 unit subcut BID Qty: 15 0RF Rx Instructions: Take with breakfast and supper daily insulin lispro [Humalog KwikPen Insulin] 100 unit/mL Insulin Pen 10 unit subcut TIDCM Qty: 15 0RF Continued acetaminophen 500 MG tablet 1,000 mg PO DAILY PRN (Reason: Pain) ibuprofen 200 MG tablet 400 - 600 mg PO DAILY PRN (Reason: Pain) fluoxetine 10 mg Tablet 20 mg PO DAILY lorazepam 1 mg tablet 1 mg PO DAILY PRN Patient Comments: TAKE 1 TABLET BY MOUTHEONCE DAILY NEEDED FORPANXIETY Xtampza ER 9 mg cap,sprinkl,ER12hr(DONT CRUSH) 18 mg PO BID Rx Instructions: must administer with a meal/food (DME) handicap placcard See Rx Instructions .Route .MEDSUPPLY Qty: 1 0RF Rx Instructions: dx: debility, CHF Lifetime albuterol sulfate 90 mcg/actuation HFA aerosol inhaler 2 puff inhalation Q4H PRN (Reason: shortness of breath or wheezing) Qty: 8.5 3RF aspirin [Adult Aspirin Regimen] 81 mg tablet,delayed release (DR/EC) 81 mg PO QDAY Qty: 90 3RF carvedilol 25 mg tablet 50 mg PO BID Qty: 360 3RF Rx Instructions: Hold for heart less than 60 or systolic blood pressure less than 100 mmHg. clonidine HCl 0.1 mg tablet 0.1 mg PO BID Qty: 180 3RF levothyroxine 25 mcg tablet 25 mcg PO DAILY Qty: 90 3RF rabeprazole [AcipHex] 20 mg tablet,delayed release (DR/EC) 20 mg PO DAILY Qty: 90 3RF nifedipine 60 mg tablet extended release 24hr 60 mg PO DAILY Qty: 30 11RF zolpidem 10 mg tablet 10 mg PO QHS PRN (Reason: sleep) Qty: 30 0RF quetiapine 200 mg tablet 200 mg PO .Four times a day Qty: 120 2RF Referrals / Follow Up: Dhaval Braden MD [Primary Care Provider] - In 1 Week Disposition Disposition (needs filled in before D/C Order can be placed): Home, Self Care 07/31/23 1651<Electronically signed by Isaak Gallagher DO>Isaak Gallagher DO CC: Dr. Daquan Miller DO; Dr. Dhaval Braden MD ~ Signed [facility] Work Phone: Evaluation noteNo assessment information available [facility] [facility] Work Phone: Evaluation note* Diagnosis Onset Date Resolution Status Infection of external auditory canal acute [facility] Work Phone: Evaluation note* Diagnosis Sensory neuropathy- Primary Unspecified hereditary and idiopathic peripheral neuropathy [facility] Diagnosis Shortness of breath- Primary [facility]* Diagnosis Lung nodules- Primary Other nonspecific abnormal finding of lung field [facility] Diagnosis Lesion of lateral popliteal nerve, right lower limb- Primary Sensory neuropathy Unspecified hereditary and idiopathic peripheral neuropathy [facility]* Diagnosis Meralgia paresthetica, bilateral lower limbs- Primary Chronic midline low back pain without sciatica [facility]* Diagnosis Shortness of breath- Primary [facility]* Diagnosis Restrictive lung disease secondary to obesity- Primary Other diseases of lung, not elsewhere classified Acute respiratory failure with hypoxia and hypercapnia (HCC) [facility] Diagnosis S/P thoracic aortic aneurysm repair- Primary Other postprocedural status Mixed hyperlipidemia [facility] Diagnosis Marfan syndrome- Primary Marfan's syndrome Marfan's syndrome S/P mitral valve repair Other postprocedural status Dissection of thoracoabdominal aorta (HCC) Dissection of aorta, thoracoabdominal Disorder of artery or arteriole (HCC) Unspecified disorders of arteries and arterioles Adverse effect of treatment, sequela Obesity, Class I, BMI 30-34.9 Obesity, unspecified [facility] Diagnosis Marfan syndrome- Primary Marfan's syndrome [facility]* Diagnosis Onset Date Resolution Status Anemia acute CHF (congestive heart failure) acute Depression acute Elevated brain natriuretic peptide (BNP) level acute Elevated troponin acute Encephalopathy acute acute History of aortic dissection acute Hypokalemia acute Marfan syndrome acute Pneumonia acute SOB (shortness of breath) ac juanita Uncontrolled hypertension ac juanita H/O coronary artery bypass surgery March 08, 2011 resolved History of mitral valve repair March 08, 2011 resolved Hx of ascending aorta replacement March 08, 2011 resolved [facility] Work Phone: Evaluation note* Diagnosis Onset Date Resolution Status [place] (acute kidney injury) ac juanita Diabetes mellitus, new onset acute Hyperglycemia acute [facility] Work Phone: History and physical note Author Daquan Miller [facility] July 30, 2023 3:04pm Note Date/Time July 30, 2023 3:0 [facility] [address] [place] [address] H&P Exam - Hospitalist 07/30/23 1455 MR#: [id number] Acct: [id number] Name: LEIDY DC Rep #:[id number] : 1970 52 From: Daquan Miller DO PCP: Dr. Dhaval Braden MD Status:RE G ER Location: ED HPI - General General Date of Service: 07/30/23 Chief Complaint: Polyuria. Polydipsia. HPI Narrative LEIDY DC, is a 52 M who presents who for the past few weeks, has been experiencing polyuria, polydipsia, diffuse myalgias and feeling unwell. Over the past few months he is also been losing roughly about 30 pounds. Present to the emergency room and his glucose was a 41. Patient did receive IV fluids. The hospital service was consulted for admission. The physician speech pathology assistant in the emergency room ordered for an insulin drip. Being that is not in DKA, I discontinued that and ordered a dose of Humalog. Patient has been checked for diabetes in the past and has never been tested positive though should be noted that his glucose was 163 back in October. Patient today's had an A1c at that time which was 5.3. 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 Essential (primary) hypertension (05/20/18) GERD (gastroesophageal reflux disease) History of aortic dissection Hyperkalemia Hyperlipidemia Hypertensive urgency Hypoxia Infection of external auditory canal Marfan syndrome Marfans syndrome Nonobstructive atherosclerosis of coronary artery NEO (obstructive sleep apnea) Uncontrolled hypertension Home Medications acetaminophen 500 mg tablet 1,000 mg PO DAILY PRN Pain 05/19/18 [History Last Taken 05/19/18] ibuprofen 200 mg tablet 400 - 600 mg PO DAILY PRN Pain 05/19/18 [History Last Taken 05/19/18] handicap placcard #1 ea 03/15/21 [Rx Last Taken Unknown] fenofibrate 160 mg tablet 160 mg PO DAILY #90 tabs 09/18/21 [Rx Last Taken Unknown] albuterol sulfate 90 mcg/actuation aerosol inhaler 2 puff inhalation Q4H PRN shortness of breath or wheezing #8.5 grams 10/03/21 [Rx Last Taken Unknown] aspirin 81 mg tablet,delayed release (Adult Aspirin Regimen) 81 mg PO QDAY #90 tabs 09/16/22 [Rx Last Taken Unknown] carvedilol 25 mg tablet 50 mg (2 x 25 mg) PO BID #360 tabs 09/16/22 [Rx Last Taken Unknown] clonidine HCl 0.1 mg tablet 0.1 mg PO BID blood pressure #180 tabs 09/16/22 [Rx Last Taken Unknown] clopidogrel 75 mg tablet 75 mg PO DAILY heart health #90 tabs 09/16/22 [Rx Last Taken Unknown] hydralazine 50 mg tablet 150 mg (3 x 50 mg) PO TID #810 tabs 09/16/22 [Rx Last Taken Unknown] buprenorphine 20 mcg/hour weekly transdermal patch 10/13/22 [History Last Taken Unknown] fluoxetine 10 mg tablet 10 mg PO DAILY 10/13/22 [History Last Taken Unknown] hydrocodone-acetaminophen 5-325mg 5mg-325mg 1 tab PO BID PRN Pain 10/13/22 [History Last Taken Unknown] isosorbide dinitrate 30 mg tablet 30 mg PO BID blood pressure 10/13/22 [History Last Taken Unknown] lorazepam 1 mg tablet mg 10/13/22 [History Last Taken Unknown] amoxicillin 875 mg-potassium clavulanate 125 mg tablet 1 tab PO BID #8 tabs 10/17/22 [Rx Last Taken Unknown] ferrous sulfate 325 mg (65 mg iron) tablet (FeroSul) 325 mg PO DAILY@1200 #30 tabs 10/17/22 [Rx Last Taken Unknown] levothyroxine 25 mcg tablet 25 mcg PO DAILY #90 tabs 01/16/23 [Rx Last Taken Unknown] rabeprazole 20 mg tablet,delayed release (AcipHex) 20 mg PO DAILY stomach #90 tabs 02/03/23 [Rx Last Taken Unknown] nifedipine 60 mg tablet,extended release 24 hr 60 mg PO DAILY BP #30 tabs 02/26/23 [Rx Last Taken Unknown] zolpidem 10 mg tablet 10 mg PO QHS PRN sleep #30 tabs 04/30/23 [Rx Last Taken Unknown] quetiapine 200 mg tablet 200 mg PO .Four times a day sleep #120 tabs 05/11/23 [Rx Last Taken Unknown] Allergy/AdvReac Type Severity Reaction Status Date / Time Quinolones Allergy Unknown PT UNSURE Verified 07/30/23 15:02 OF REACTION ciprofloxacin [From Cipro] Allergy Rash Verified 07/30/23 15:02 ciprofloxacin HCl Allergy Rash Verified 07/30/23 15:02 [From Cipro] sulfamethoxazole Allergy Rash Verified 07/30/23 15:02 [From Bactrim] tramadol Allergy Itching Verified 07/30/23 15:02 trimethoprim [From Bactrim] Allergy Rash Verified 07/30/23 15:02 Family History Son Marfans syndrome Daughter Marfans syndrome Father Hypertension Grandfather Heart disease Myocardial infarction CVA (cerebral vascular accident) Grandmother Heart disease Surgical History H/O coronary artery bypass surgery (03/08/11) History of hand surgery History of left heart catheterization (12/14/20) History of mitral valve repair (03/08/11) History of open reduction and internal fixation (ORIF) procedure (2016) History of surgical fusion joint History of tonsillectomy Hx of ascending aorta replacement (03/08/11) Social History household members: spouse Smoking Status: Never smoker alcohol intake: current alcohol intake frequency: a few times a month substance use type: does not use ROS ROS Narrative All review of systems were negative except as mentioned above in the history of present illness and the other review of systems. Vital Signs Vital Signs Vital Signs: 07/30/23 13:04 07/30/23 14:08 Temperature 36.2 C L Temperature Source Temporal Pulse Rate 78 Respiratory Rate 18 Respiratory Effort Normal Respiratory Pattern Normal Blood Pressure 125/71 H Blood Pressure Mean 89 Pulse Ox 95 Oxygen Delivery Method Room Air Weight Weight: 114.305 kg Body Mass Index (BMI) 30.7 Physical Exam Const alert, oriented x3 and no apparent distress HEENT normocephalic and head/scalp atraumatic Resp normal respiratory effort, no retractions, no use of accessory muscles and clearto auscultation bilaterally Cardio regular rate, regular rhythm, S1 normal heart sound and S2 normal heart sound GI normal to inspection, nondistended, normoactive bowel sounds and soft to palpation GI Narrative: Protuberant abdomen but soft nondistended. Extremity normal to inspection Extremity Narrative: Long digits. Patient is missing his right index finger at the PIP. Skin Skin Narrative: No rashes or lesions Results Lab / Micro Data 07/30/23 13:40 07/30/23 13:40 Labs: Laboratory Results - last 24 hr 07/30/23 13:40: WBC 4.9, RBC 4.77, Hgb 13.6, Hct 41.0, MCV 86.0, MCH 28.5, MCHC 33.2, RDW Std Deviation 39.8, RDW Coeff of Lalita 13.0, Plt Count 198, MPV 10.5, Immature Gran % (Auto) 1.400 H, Neut % (Auto) 61.8, Lymph % (Auto) 19.7, [place] % (Auto) 12.6 H, Eos % (Auto) 3.7, Baso % (Auto) 0.8, Absolute Neuts (auto) 3.0, Absolute Lymphs (auto) 0.97, Nucleated RBC % 0, Sodium 125 L, Potassium 4.0, Chloride 92 L, Carbon Dioxide 25.0, Anion Gap 8, BUN 19 H, Creatinine 1.65 H, Estim Creat Clear Calc 70.80, Est GFR (MDRD) Af Amer 56 L, Est GFR (MDRD) Non-Af46 L, BUN/Creatinine Ratio 11.5, Glucose 841 H*, Calcium 8.5, Acetone Level NEGATIVE Assessment & Plan Assessment/Plan (1) Diabetes mellitus, new onset: PLAN: Plan Diabetes mellitus type 2, new diagnosis * This may have been ongoing for the past few months. Patient did have an elevated glucose of 163 back in October but A1c at that time was 5.3. * Did discuss with the patient the need, least for now, for insulin. Will give him 20 units of Humalog and then schedule insulin glargine 15 units starting tonight. Depending on how his blood sugars respond it is unclear if that will need to be titrated up or down. Additionally we will have him on prandial Humalog 5 units with meals. * Recheck an A1c Hyponatremia * Patient is awake and alert and I do not feel an insulin drip is necessary at this time. I feel that this probably component of pseudohyponatremia but also may be some delusional component as patient has been having polyuria with his uncontrolled diabetes. * Patient will be on normal saline IV fluids. Elevated creatinine * Creatinine is 1.65 and back in October is 1.34. This does not rise to qualify as acute kidney injury at this time. * IV fluids Chronic conditions * Marfan's disease: Patient has had thoracic as well as vertebral dissections abdomen repaired * CAD: Continue with home medications once those are reconciled * Anemia: Hemoglobin is higher than baseline but per that may be due to hemoconcentration. * Depression: Continue home meds once those are reconciled * Anxiety: On lorazepam * Hypertension: Stable continue with home medications with cells are reconciled. VTE prophylaxis: Not indicated given current observation status Disposition: Patient will be brought under observation status is a feel the patient will respond appropriately to medical therapy and would anticipate discharge on the . Charges/Coding Visit Charges Inpatient E&M: 34952 Init Hosp L2 07/30/23 1500 <Electronically signed by Daquan Miller DO> Cosigner Signature (if applicable): CC: Dr. Daquan Miller DO; Dr. Dhaval Braden MD~ Signed [facility] Work Phone: Hospital Discharge instructions Additional Instructions Suspect you have a sprain of your ankle. There are chronic changes to the ankle on your x-ray but it is possible you could have a very small avulsion fracture of the distal left fibula. These are treated the same. You been given a walking boot. Is weightbearing as tolerated. Continue to ice and try to elevate leg is much as possible. After discussion with the pain management office you have been given a short course of oxycodone for breakthrough pain. You may also take ibuprofen and/or Tylenol for pain control.[facility] Work Phone: Reason for referral (narrative)* Outpatient Procedure (Routine) - Pending Review Specialty Diagnoses / Procedures Referred By Eleuterio resendez [facility] Diagnoses Sensory neuropathy Procedures EMG(NEURO/NI) NERVE CONDUCTION STUDIES 9-10 STUDIES Fabiola Granados MD [address] [place] [address] [address] Referral ID Status Reason Start Date Expiration Date Visits Requested Visits Authorized [id number] Pending Review Auto-Generat ed Referral 08/17/2021 08/17/2022 1 1 [facility] for referral (narrative)* Outpatient Procedure (Routine) - Pending Review Specialty Diagnoses / Procedures Referred By Contac t Referred To [facility] [place] Diagnoses Shortness of breath Procedures SPIROMETRY SITTING AND SUPINE SPMTRY W/VC EXPIRATORY [place] W/WO MXML VOL VNTJ Jhony Stratotn MD [address] [place] [address] [place] [address] Referral ID Status Reason Start Date Expiration Date Visits Requested Visits Authorized [id number] Pending Review Auto-Generat ed Referral 09/19/2021 09/19/2022 1 1 [facility] for referral (narrative)* Outpatient Procedure (Routine) - Pending Review Specialty Diagnoses / Procedures Referred By Contac t Referred To [facility] [place] Diagnoses Acute respiratory failure with hypoxia and hypercapnia (HCC) Restrictive lung disease secondary to obesity Procedures MIPS/MEPS UNLISTED PULMONARY SERVICE/PROCEDURE Yomi Thomas MD [address] [place] [address] [address] Referral ID Status Reason Start Date Expiration Date Visits Requested Visits Authorized [id number] Pending Review Auto-Generat ed Referral 10/07/2021 11/06/2022 1 1 * Outpatient Procedure (Routine) - Authorized Specialty Diagnoses / Procedures Referred By Contac t Referred To [facility] [place] Diagnoses Acute respiratory failure with hypoxia and hypercapnia (HCC) Restrictive lung disease secondary to obesity Procedures SPIROMETRY SITTING AND SUPINE SPMTRY W/VC EXPIRATORY [place]TH W/WO MXML VOL VNTJ Yomi Thomas MD [address] [place] [address] [facility] [address] [place] [address] Referral ID Status Reason Start Date Expiration Date Visits Requested Visits Authorized [id number] Authorized Auto-Generat ed Referral 10/07/2021 11/06/2022 1 1 [facility] for referral (narrative)No reason for referral information [facility] Work [facility]: Summary Purpose Family History Relationship Condition Age at Onset Recorded Date/T walter son Marfan's syndrome Unknown daughter Marfan's syndrome Unknown father Hypertension Unknown grandfather Cardiac disease Unknown Myocardial infarction Unknown Cerebrovascular accident (CVA) Unknown grandmother Cardiac disease Unknown Advance Directives Advance Directive Response Recorded Date/ Time Advance Directives No January 2:00pm Living Will No March 20, 2 021 5:19pm Power of Process Expert No March 20, 2021 5:19pm Advance Directive Response Recorded Date/ Time Advance Directives No July 25, 2 022 2:38pm Living Will No August 06, 2021 9:51pm Power of Process Expert No August 06 9:51pm Documents on File Type Date Recorded 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 Expl 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 Advance Directive(s) 05/20/2018 6:02 AM Advance Directive(s) 02/14/2016 7:45 PM Latest Code Status on File Code Status Date Activated Date Inactivated Comments Full Code 08/07/2021 4:43 AM Full Code Order Discussed With: Patient Documents on File Type Date Recorded 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 Expl anation Advance Directive(s) 08/07/2021 1:00 PM Advance Directive(s) 05/20/2018 6:02 AM Advance Directive(s) 02/14/2016 7:45 PM Latest Code Status on File Code Status Date Activated Date Inactivated Comments Full Code 08/07/2021 4:43 AM Documents on File Type Date Recorded 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 Expl anation Advance Directive(s) 08/07/2021 1:00 PM Advance Directive(s) 05/20/2018 6:02 AM Advance Directive(s) 02/14/2016 7:45 PM Latest Code Status on File Code Status Date Activated Date Inactivated Comments Full Code 08/07/2021 4:43 AM 08/21/2021 9:08 PM Advance Directive Response Recorded Date/ Time Advance Directives No July 25, 2 022 2:38pm Living Will No August 31, 2021 8:16pm Power of Process Expert No August 31 8:16pm Latest Code Status on File Code Status Date Activated Date Inactivated Comments Full Code 08/07/2021 4:43 AM 08/21/2021 9:08 PM Advance Directive Response Recorded Date/ Time Name of Medical Power of Process Expert Annel Nolt October 14, 2022 1:07am Advance Directives No July 25, 2 022 2:38pm Living Will No October 14, 2022 1:07am Power of Process Expert Yes October 14 1:07am Latest Code Status on File Code Status Date Activated Date Inactivated Comments Full Code 08/07/2021 4:43 AM 08/21/2021 9:08 PM Question Answer Comments Full Code Order Discussed With: Patient Advance Directive Response Recorded Date/ Time Advance Directives No July 25, 2 022 2:38pm Living Will No July 30, 2023 2:08pm Power of Process Expert No July 29 2:08pm Advance Directive Response Recorded Date/ Time Advance Directives No July 25, 2 022 2:38pm Living Will No July 30, 2023 4:07pm Power of Process Expert No July 29 4:07pm Advance Directive Response Recorded Date/ Time Living Will No June 06 12:59pm Power of Process Expert No June 06, 2024 12:59pm Living Will No July 08, 2024 10:02am Power of Process Expert No July 08 10:02am Advance Directives No July 25, 2 022 1:38pm Chief Complaint and Reason for Visit Chief Complaint LOW BACK PAIN BLE PAIN & NUMBNESS Chief Complaint LOW BACK PAIN BLE PAIN & NUMBNESS R JAW PAIN/INFECTED TOOTH chest pain chest pain Reason for Visit Infection of externa l auditory canal Chief Complaint BLE PAIN & NUMBNESS R JAW PAIN/INFECTED TOOTH chest pain chest pain chest pain Amb Documentation Amb Documentation Amb Documentation Amb Documentation BACK PAIN Reason for Visit Infection of externa l auditory canal Chief Complaint ELEVATED TROP ELEVATED TROPONIN, PNEUMONIA ELEVATED TROPONIN, PNEUMONIA ELEVATED TROPONIN, PNEUMONIA ELEVATED TROPONIN, PNEUMONIA ELEVATED TROPONIN, PNEUMONIA Reason for Visit Anemia CHF (congestive heart failure) Depression Elevated brain natriuretic peptide (BNP) level Elevated troponin Encephalopathy acute History of aortic dissection Hypokalemia Marfan syndrome Pneumonia SOB (shortness of breath) Uncontrolled hypertension H/O coronary artery bypass surgery History of mitral valve repair Hx of ascending aorta replacement Chief Complaint ELEVATED TROP ELEVATED TROPONIN, PNEUMONIA ELEVATED TROPONIN, PNEUMONIA ELEVATED TROPONIN, PNEUMONIA ELEVATED TROPONIN, PNEUMONIA ELEVATED TROPONIN, PNEUMONIA Reason for Visit Elevated brain natri uretic peptide (BNP) level Elevated troponin Encephalopathy acute H/O coronary artery bypass surgery History of mitral valve repair Hx of ascending aorta replacement Hypokalemia Pneumonia SOB (shortness of breath) Chief Complaint DM2 hyperglycemia Reason for Visit [place] (acute kidney in jury) Diabetes mellitus, new onset Hyperglycemia Chief Complaint Admit Date PRE OP June 07, 2024 2 :58pm Insertion, Pain Pump,Implantable Februar 2024 8:46am LEFT ANKLE INJURY July 08, 2024 9:39 am Medications Administered Section Inactive Administered Medications - up to 3 most recent administrations Medication Order MAR Action Action Date Dose Rate Site fentaNYL 50 mcg/mL 50 mcg injection (SUBLIMAZE) 50 mcg, INTRAVENOUS, ONCE, 1 dose, On Thu08/07/21 at 0400 Given 08/07/2021 1:18 AM EDT 50 mcg fentaNYL 50 mcg/mL 50 mcg injection (SUBLIMAZE) 50 mcg, INTRAVENOUS, ONCE, 1 dose, On Thu08/07/21 at 0400 Given 08/07/2021 1:59 AM EDT 50 mcg metoprolol 2.5 mg injection (LOPRESSOR) 2.5 mg, INTRAVENOUS, ONCE, 1 dose, On Thu08/07/21 at 0400, Administer IV push over 2-5 minutes. Given 08/07/2021 2:08 AM EDT 2.5 mg metoprolol 5 mg injection (LOPRESSOR) 5 mg, INTRAVENOUS, ONCE, 1 dose, On Thu08/07/21 at 0400, Administer IV push over 2-5 minutes. Given 08/07/2021 1:17 AM EDT 5 mg metoprolol 5 mg injection (LOPRESSOR) 5 mg, INTRAVENOUS, ONCE, 1 dose, On Thu08/07/21 at 0400, Administer IV push over 2-5 minutes. Given 08/07/2021 1:22 AM EDT 5 mg sodium nitroprusside 50 mg in D5W 250 mL (NIPRIDE) 150-215 mcg/min (45-64.5 mL/hr), INTRAVENOUS, CONTINUOUS, Starting on Thu08/07/21 at 0400, Until Thu08/07/21 at 0437, Titrate to a systolic blood pressure (SBP) of 120 mm Hg Start at 10-20 mcg/min or continue at current infusion rate. Titrate by 5-20 mcg/min every 5-10 minutes. Contact LIP if dose adjusted by more than 120 mcg/min within 30 minutes. If this medication is paused for any duration of time and needs to be restarted: Restart at 10-20 mcg/min and titrate per order parameters. Refrigerate - Protect From Light Rate/Dose Change 08/07/2021 2:18 AM EDT 215 mcg/min 64.5 mL/hr Rate/Dose Change 08/07/2021 2:05 AM EDT 205 mcg/min 61.5 m L/hr Rate/Dose Change 08/07/2021 1:54 AM EDT 195 mcg/min 58.5 m L/hr Health Concerns Infection Onset Date Last Indicated Resolved Time COVID-19 Rule-Out 08/07/2021 08/07/2021 08/07/2021 7:02 AM EDT Reason for Referral Specialty Diagnoses / Procedures Referred By Eleuterio resendez Referred To Contact [facility] Diagnoses Chronic midline low back pain without sciatica Procedures CONSULT TO PHYSICAL THERAPY PHYSICAL THERAPY EVALUATION HIGH COMPLEX 45 MINS Neur Neuromusc Main [address] [place] [address] [facility] [address] [place] [address] Referral ID Status Reason Start Date Expiration Date Visits Requested Visits Authorized [id number] Pending Review PCP Requested Referral Auto-Generate d Referral 09/16/2021 09/16/2022 99 99 Specialty Diagnoses / Procedures Referred By Eleuterio resendez Referred To Contact CT IMAGING Diagnoses Marfan syndrome Marfan's syndrome S/P mitral valve repair 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) Adverse effect of treatment, sequela Procedures CTA NECK W IVCON CT ANGIOGRAPHY NECK W/CONTRAST/NONCONTRAST Carmella Lira MD [id number] Imaging Referral ID Status Reason Start Date Expiration Date Visits Requested Visits Authorized [id number] Authorized Auto-Generat ed Referral 10/09/2021 11/08/2022 1 1 Specialty Diagnoses / Procedures Referred By Contac t Referred To Contact CT IMAGING Diagnoses Marfan syndrome Marfan's syndrome S/P mitral valve repair 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) Adverse effect of treatment, sequela Procedures CTA HEAD W IVCON CT ANGIOGRAPHY HEAD W/CONTRAST/NONCONTRAST Carmella Lira MD [address] [place] [address] Ct Imaging Referral ID Status Reason Start Date Expiration Date Visits Requested Visits Authorized [id number] Authorized Auto-Generat ed Referral 10/09/2021 11/08/2022 1 1 Specialty Diagnoses / Procedures Referred By Contac t Referred To Contact [facility] [place] [place] Diagnoses Marfan syndrome Marfan's syndrome S/P mitral valve repair 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) Adverse effect of treatment, sequela Procedures ECG COMPLETE ECG ROUTINE ECG W/LEAST 12 LDS W/I&R Carmella Lira MD [address] [place] [address] [facility] [address] [place] [address] Referral ID Status Reason Start Date Expiration Date Visits Requested Visits Authorized [id number] Authorized Auto-Generat ed Referral 10/09/2021 10/09/2022 1 1 Specialty Diagnoses / Procedures Referred By Contac t Referred To Contact CT IMAGING Diagnoses Marfan syndrome Marfan's syndrome S/P mitral valve repair 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) Adverse effect of treatment, sequela Procedures CTA CHEST/ABD/PEL (GATED) W IVCON CT ANGIOGRAPHY CHEST W/CONTRAST/NONCONTRAST CT ANGIO ABD&PLVIS CNTRST MTRL W/WO CNTRST Carmella Bess MD [address] [place] [address] Ct Imaging Referral ID Status Reason Start Date Expiration Date Visits Requested Visits Authorized [id number] Pending Review Auto-Generat ed Referral 10/09/2021 11/08/2022 1 1 Additional Source Comments (unrecognized sect ion and content) No Status Records FoundNo Status Records FoundNo Status Records FoundNo Status Records Found INFORMATION SOURCE (unrecogn ized section and content) DATE CREATED AUTHOR 10/28/2017 [facility] ([place]) DATE CREATED AUTHOR AUTHOR'S ORGANIZ ATION 10/23/2022 [facility] DATE CREATED AUTHOR AUTHOR'S ORGANIZ ATION 10/04/2023 [facility] DATE CREATED AUTHOR AUTHOR'S ORGANIZ ATION [facility]22[facility]20[facility] Goals (unrecognized section and content) Goals may be documented in a n alternate sectionGoals may be documented in an alternate sectionGoals may be documented in an alternate sectionGoals may be documented in an alternate sectionGoals may be documented in an alternate sectionGoals may be documented in an alternate section Source Comments (unrecognize d section and content) In the event this informatio n is protected by the Federal Confidentiality of Alcohol and Drug Abuse Patient Records regulations: The Federal rules restrict any use of the information to criminally investigate or prosecute any alcohol or drug abuse patient.[facility] the event this information is protected by the Federal Confidentiality of Alcohol and Drug Abuse Patient Records regulations: The Federal rules restrict any use of the information to criminally investigate or prosecute any alcohol or drug abuse patient.[facility] Center[facility] the event this information is protected by the Federal Confidentiality of Alcohol and Drug Abuse Patient Records regulations: The Federal rules restrict any use of the information to criminally investigate or prosecute any alcohol or drug abuse patient.[facility] Center[facility] the event this information is protected by the Federal Confidentiality of Alcohol and Drug Abuse Patient Records regulations: The Federal rules restrict any use of the information to criminally investigate or prosecute any alcohol or drug abuse patient.[facility] Center[facility] the event this information is protected by the Federal Confidentiality of Alcohol and Drug Abuse Patient Records regulations: The Federal rules restrict any use of the information to criminally investigate or prosecute any alcohol or drug abuse patient.[facility] the event this information is protected by the Federal Confidentiality of Alcohol and Drug Abuse Patient Records regulations: The Federal rules restrict any use of the information to criminally investigate or prosecute any alcohol or drug abuse patient.[facility] Center[facility] the event this information is protected by the Federal Confidentiality of Alcohol and Drug Abuse Patient Records regulations: The Federal rules restrict any use of the information to criminally investigate or prosecute any alcohol or drug abuse patient.[facility] Center[facility] the event this information is protected by the Federal Confidentiality of Alcohol and Drug Abuse Patient Records regulations: The Federal rules restrict any use of the information to criminally investigate or prosecute any alcohol or drug abuse patient.[facility] Center[facility] the event this information is protected by the Federal Confidentiality of Alcohol and Drug Abuse Patient Records regulations: The Federal rules restrict any use of the information to criminally investigate or prosecute any alcohol or drug abuse patient.[facility] Center[facility] the event this information is protected by the Federal Confidentiality of Alcohol and Drug Abuse Patient Records regulations: The Federal rules restrict any use of the information to criminally investigate or prosecute any alcohol or drug abuse patient.[facility] Center[facility] the event this information is protected by the Federal Confidentiality of Alcohol and Drug Abuse Patient Records regulations: The Federal rules restrict any use of the information to criminally investigate or prosecute any alcohol or drug abuse patient.[facility] Center[facility] the event this information is protected by the Federal Confidentiality of Alcohol and Drug Abuse Patient Records regulations: The Federal rules restrict any use of the information to criminally investigate or prosecute any alcohol or drug abuse patient.[facility] Reason for Visit (unrecogniz ed section and content) Reason Comments Critical Care Transport Reason Onset Date Comments EMG 09/16/2021 Specialty Diagnoses / Procedures Referred By Contac t Referred To Contact [facility] Diagnoses Sensory neuropathy Procedures EMG(NEURO/NI) NERVE CONDUCTION STUDIES 9-10 STUDIES Fabiola Granados MD [address] [place] [address] [place] [address] Referral ID Status Reason Start Date Expiration Date V isits Requested Visits Authorized [id number] Closed Auto-Generate d Referral 08/17/2021 08/17/2022 1 1 Specialty Diagnoses / Procedures Referred By Contac t Referred To Contact Neurology / NEUROMUSCULAR Diagnoses Sensory neuropathy Hospital Discharge Procedures [facility] Fabiola Granados MD [address] [place] [address] Delvin Greer MD [facility] [place] [address] Referral ID Status Reason Start Date Expiration Date V isits Requested Visits Authorized [id number] Pending Review 08/19/2021 11/17/2021 1 1 Reason Comments Spirometry Specialty Diagnoses / Procedures Referred By Contac t Referred To Contact [facility] Diagnoses Shortness of breath Procedures SPIROMETRY SITTING AND SUPINE SPMTRY W/VC EXPIRATORY [place] W/WO MXML VOL VNTJ Jhony Stratton MD [address] [place] [id number] [facility] [address] [place] [address] Referral ID Status Reason Start Date Expiration Date V isits Requested Visits Authorized [id number] Closed Auto-Generate d Referral 09/19/2021 09/19/2022 1 1 Specialty Diagnoses / Procedures Referred By Contac t Referred To Contact Pulmonary and Critical Care Medicine / PULMONARY MEDICINE Diagnoses Acute respiratory failure with hypoxia and hypercapnia (HCC) Procedures CONSULT TO PULM/CRITICAL CARE OFFICE/OUTPATIENT NEW HIGH MDM 60-74 MINUTES Carmella Lira MD [address] [facility] [place] [phone] [address] [place] [address] Referral ID Status Reason Start Date Expiration Date V isits Requested Visits Authorized [id number] Closed PCP Requested Referral 08/21/2021 08/21/2022 1 1 Reason Comments Future Appointment Specialty Diagnoses / Procedures Referred By Contac t Referred To Contact Cardiology / [facility]ARD [place] Diagnoses Aortic dissection HOSPITAL FOLLOW UP PER JERRY- Jorge Rosario [phone] OK PER MACIE TO USE SLOT Procedures EST IMAGING Carmella Lira MD [address] [place] [phone] Carmella Lira MD [address] [facility] [place] [phone] Referral ID Status Reason Start Date Expiration Date V isits Requested Visits Authorized [id number] Pending Review 10/09/2021 01/07/2022 1 1 Reason Onset Date Comments Appointment Confirmation 10/22/2022 Reason Comments New Patient Care Teams (unrecognized sec tion and content) 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 Start Date End Date Raymond Galvez MD [address] [place], [place] [phone] PCP - General Internal Medicine 04/12/15 Diaz Schafer MD [address] [facility] [place] [address] Primary Staff Physician Cardiology 07/20/18 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 Start Date End Date Raymond Galvez MD [address] [place] [address] PCP - General Internal Medicine 04/12/15 Diaz Schafer MD [address] [place] [address] Primary Staff Physician Cardiology 07/20/18 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 Start Date End Date Raymond Galvez MD [address] [place] [address] PCP - General Internal Medicine 04/12/15 Diaz Schafer MD [address] [place] [address] Primary Staff Physician Cardiology 07/20/18 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 Start Date End Date Raymond Galvez MD [address] [place] [address] PCP - General Internal Medicine 04/12/15 Diaz Schafer MD [address] [place] [address] Primary Staff Physician Cardiology 07/20/18 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 Start Date End Date Raymond Galvez MD [address] [place] [address] PCP - General Internal Medicine 04/12/15 Diaz Schafer MD [address] [place] [address] Primary Staff Physician Cardiology 07/20/18 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 Start Date End Date Raymond Galvez MD [address] [place] [address] PCP - General Internal Medicine 04/12/15 Diaz Schafer MD [address] [place] [address] Primary Staff Physician Cardiology 07/20/18 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 Start Date End Date Raymond Galvez MD [address] [place] [address] PCP - General Internal Medicine 04/12/15 Diaz Schafer MD [address] [place] [address] Primary Staff Physician Cardiology 07/20/18 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 Start Date End Date Raymond Galvez MD [address] [place] [address] PCP - General Internal Medicine 04/12/15 Diaz Schafer MD [address] [place] [address] Primary Staff Physician Cardiology 07/20/18 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 Raymond Turcios MD Family Provider Active Dr. Dhaval Braden MD Primary Care Provider Active Team Status: Inactive Member Role Status Dates Dr. Dhaval Braden MD Primary Care Provider Active Dr. Melquiades Alegre MD Attending Provider, Referring Pr ovider Active Team Status: Active Member Role Status Dates Dr. Dhaval Braden MD Primary Care Provider Active Dr. Deandre Villalpando MD Emergency Provider Active Dr. Deandre Henson MD Admit Provider, At tending Provider, Other Provider Active Team Status: Active Member Role Status Dates Dr. Dhaval Braden MD Primary Care Provider Active Dr. Miko Ramirez MD Attending Provider Activ e Team Status: Active Member Role Status Dates Dr. Dhaval Braden MD Primary Care Provider Active Dr. Deandre Villalpando MD Emergency Provider Active Dr. Deandre Henson MD Admit Provider, Other Provider A ctive Dr. Miko Ramirez MD Other Provider Active Dr. Daquan Miller DO Other Provider Active Dr. Eduard Rea MD Attending Provider Active Team Status: Active Member Role Status Dates Dr. Dhaval Braden MD Primary Care Provider Active Dr. Deandre Villalpando MD Emergency Provider Active Dr. Deandre Henson MD Admit Provider, Other Provider A ctive Dr. Miko Ramirez MD Other Provider Active Dr. Daquan Miller DO Attending Provider, Other Provid er Active Team Status: Active Member Role Status Dates Dr. Dhaval Braden MD Primary Care Provider Active Dr. Deandre Villalpando MD Emergency Provider Active Dr. Deandre Henson MD Admit Provider, Other Provider A ctive Dr. Daquan Miller DO Attending Provider, Other Provid er Active Dr. Miko Ramirez MD Other Provider Active Team Status: Inactive Member Role Status Dates Dr. Dhaval Braden MD Primary Care Provider Active Dr. Deandre Villalpando MD Emergency Provider Active Dr. Deandre Henson MD Admit Provider, Other Provider A ctive Dr. Daquan Miller DO Attending Provider Active Dr. Miko Ramirez MD Other Provider Active Team Status: Inactive Member Role Status Dates Dr. 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 [address] [place] [address] PCP - General Family Medicine 11/21/22 Diaz Schafer MD [address] [place] [address] Primary Staff Physician Cardiology 07/20/18 Team Status: Active Member Role Status Dates Dr. Dhaval Braden MD Primary Care Provider Active Dr. Yaakov Barrientos DO Emergency Provider Active Dr. Daquan Miller DO Attending Provider Active Team Status: Active Member Role Status Dates Dr. Dhaval Braden MD Primary Care Provider Active Dr. Yaakov Barrientos DO Emergency Provider Active Dr. Daquan Miller DO Admit Provider, Attending Provid er Active Team Status: Inactive Member Role Status Dates Dr. Dhaval Braden MD Primary Care Provider Active Dr. Yaakov Barrientos DO Emergency Provider Active Dr. Daquan Miller DO Admit Provider, Other Provider A ctive Dr. Isaak Gallagher DO Attending Provider Active Team Status: Active Member Role Status Dates Dr. Dhaval Braden MD Primary Care Provider Active Team Status: Inactive Member Role Status Dates Dr. Dhaval Braden MD Primary Care Provider Active Start: June 07, 2024 End: June 07, 2024 Nicolette BASS PA Attending Provider Active Start: June 07, 2024 End: June 07, 2024 Nicolette BASS PA Referring Provider Active Start: June 07, 2024 End: June 07, 2024 Team Status: Active Member Role Status Dates Dr. Dhaval Braden MD Primary Care Provider Active Start: June 07, 2024 Dr. Eduard Rea MD Attending Provider Active S tart: June 07, 2024 Team Status: Inactive Member Role Status Dates Dr. Dhaval Braden MD Primary Care Provider Active Start: June 10, 2024 End: June 10, 2024 Dr. Melquiades Alegre MD Attending Provider Active Start: June 10, 2024 End: June 10, 2024 Dr. Melquiades Alegre MD Referring Provider Active Start: June 10, 2024 End: June 10, 2024 Team Status: Inactive Member Role Status Dates Dr. Dhaval Braden MD Primary Care Provider Active Start: July 08, 2024 End: July 08, 2024 Dr. Blanca Julio DO Emergency Provider Active Start: July 08, 2024 End: July 08, 2024 FOR RECORDS PERTAINING TO PATIENTS WHO ARE OR HAVE BEEN ENROLLED IN A CHEMICAL DEPENDENCY/SUBSTANCEABUSE PROGRAM, SOME INFORMATION MAY BE OMITTED. This clinical summary was aggregated from multiple sources. Caution should be exercised in using it in the provision of clinical care. This summary normalizes information from multiple sources, and as a consequence, information in this document may materially change the coding, format and clinical context of patient data. In addition, data may be omitted in some cases. CLINICAL DECISIONS SHOULD BE BASED ON THE PRIMARY CLINICAL RECORDS. [employer], [facility]. provides no warranty or guarantee of the accuracy or completeness of information in this document.
--- NOTE | 2025-04-06 18:58 | EX.ED.DYSGE1 ---
HPI History of Present Illness Chief Complaint: Dizziness Narrative Narrative: Patient is a 54-year-old male with a past medical history of diabetes, BiPAP, hypothyroidism, bipolar disorder, Marfan syndrome with multiple dissections, CHF, GERD, hyperlipidemia, hypertension who presented to the emergency department the chief complaint of dizziness, weakness, multiple falls. Per patient's family bedside they note that he has fallen at least 10 times over the last week and he states he is also having some dizziness. He states that this is similar symptoms to when he presented with his neck dissection. He denies any blood thinner medications. Patient states that he has fallen and placed holes in the wall from him hitting the ann. He states that his legs feel extremely weak and he is also having bilateral hip pain and left rib pain and thinks he may have broken a rib. [facility] Medical History Wears glasses Broken teeth Thyroid disease Insulin dependent diabetes mellitus Dietary restriction Leg cramps History of pain when walking History of edema History of echocardiogram Cardiology follow-up encounter Pain Bipolar disorder Anxiety Hypothyroidism Non-smoker BiPAP (biphasic positive airway pressure) dependence Restrictive lung disease Anemia Depression History of aortic dissection Marfan syndrome CHF (congestive heart failure) Infection of external auditory canal Abnormal stress test Uncontrolled hypertension Acute maxillary sinusitis, unspecified Nonobstructive atherosclerosis of coronary artery Hyperkalemia GERD (gastroesophageal reflux disease) Dissection of vertebral artery Hyperlipidemia Dissecting aneurysm of ascending aorta Essential (primary) hypertension (05/20/18) Marfans syndrome Home Medications Medication Instructions Recorded Last Taken Type acetaminophen 500 mg tablet 1,000 mg PO DAILY PRN Pain 05/19/18 07/07/24 History ibuprofen 200 mg tablet 400 - 600 mg PO DAILY PRN Pain 05/19/18 07/07/24 History handicap placcard #1 ea 03/15/21 Unknown Rx albuterol sulfate 90 mcg/actuation 2 puff inhalation Q4H PRN 10/03/21 Unknown Rx aerosol inhaler shortness of breath or wheezing #8.5 grams lorazepam 1 mg tablet 1 mg PO DAILY PRN anxiety 10/13/22 06/09/24 History levothyroxine 25 mcg tablet 25 mcg PO DAILY #90 tabs 01/16/23 07/08/24 Rx zolpidem 10 mg tablet 10 mg PO QHS PRN sleep #30 tabs 04/30/23 07/07/24 Rx rabeprazole 20 mg tablet,delayed 20 mg PO DAILY stomach #90 tabs 02/12/24 07/08/24 Rx release (AcipHex) pen needle, diabetic 31 gauge x #100 ea 04/15/24 Unknown Rx 5/16" (Unifine Pentips Plus) insulin glargine 100 unit/mL (3 25 unit subcut BID 06/06/24 07/08/24 History mL) subcutaneous pen, sensor lidocaine 5 % topical patch 1 patch topical DAILY PRN pain 06/06/24 Unknown History aspirin 81 mg tablet,delayed 81 mg PO DAILY 07/08/24 07/08/24 History release (Adult Aspirin Regimen) dextroamphetamine-amphetamine 30 1 tab PO BID PRN ADHD 07/08/24 Unknown History mg tablet fluoxetine 20 mg capsule 20 mg PO QHS 07/08/24 07/07/24 History oxycodone 5 mg tablet 5 - 10 mg (1 - 2 x 5 mg) PO Q8H 07/08/24 Unknown Rx PRN pain 3 days #15 tabs insulin lispro 100 unit/mL 10 - 15 unit (0.1 - 0.15 mL) 08/10/24 Unknown Rx subcutaneous pen (Humalog KwikPen subcut TIDCM #15 mL (U-100) Insulin) clonidine HCl 0.1 mg tablet 0.1 mg PO BID blood pressure #180 09/30/24 Unknown Rx tabs quetiapine 200 mg tablet 400 mg (2 x 200 mg) PO BID Fill as 10/17/[address] Rx [address] for Dr[address] Jacinto, pt is out #120 tabs carvedilol 25 mg tablet 25 mg PO BID #180 tabs 11/08/24 Unknown Rx amoxicillin 500 mg tablet 500 mg PO .COMPLEX for dental 03/16/25 Unknown Rx infection (history heart valve surgery) #21 tabs nifedipine 60 mg tablet,extended 60 mg PO DAILY BP #90 tabs 04/03/25 Unknown Rx release 24 hr Allergy/AdvReac Type Severity Reaction Status Date / Time Quinolones Allergy Unknown PT UNSURE Verified 04/06/25 18:12 OF REACTION ciprofloxacin (From Cipro) Allergy Rash Verified 04/06/25 18:12 ciprofloxacin HCl (From Allergy Rash Verified 04/06/25 18:12 Cipro) sulfamethoxazole (From Allergy Rash Verified 04/06/25 18:12 Bactrim) tramadol Allergy Itching Verified 04/06/25 18:12 trimethoprim (From Bactrim) Allergy Rash Verified 04/06/25 18:12 Family History Son Marfans syndrome Daughter Marfans syndrome Father Hypertension Grandfather Heart disease Myocardial infarction CVA (cerebral vascular accident) Grandmother Heart disease Surgical History Hx of hammer toe correction History of open reduction and internal fixation (ORIF) procedure (2016) History of left heart catheterization (12/14/20) History of tonsillectomy History of mitral valve repair (03/08/11) H/O coronary artery bypass surgery (03/08/11) Hx of ascending aorta replacement (03/08/11) Social History household members: spouse Smoking Status: Never smoker alcohol intake: current alcohol intake frequency: a few times a month substance use type: does not use ROS ROS ED ROS Narrative Constitutional: Complains of dizziness and off balance as noted above denies any fevers or chills Eyes: Denies double vision Cardiovascular: Denies chest pain Respiratory: Denies shortness of breath Abdomen: Denies abdominal pain nausea vomit diarrhea : Denies urinary symptoms Neurological: Complains of weakness as noted above Musculoskeletal: Complains of left rib pain as noted above Skin: Denies any rashes or lesions EXAM Physical Exam Narrative Exam Narrative: General: Patient was lying in bed rest comfortably did not appear to be acute Head: Atraumatic, normocephalic Eyes: PERRL bilaterally, EOMI bilaterally, no conjunctival injection noted Neck: Soft, supple, trachea midline Cardiovascular: Regular rate and rhythm Respiratory: Clear to auscultation bilaterally Abdomen: Soft, nondistended, nontender to palpation Musculoskeletal: All bony prominences palpated joints taken to forage of motion no pain elicited Extremities: +4/5 strength noted in the bilateral lower extremities Neurological: Patient follow commands that he was at [facility] years 2024 NIH of 0 GCS 15 Skin: Warm, dry, intact no rashes or lesions noted Const Vital Signs: 04/06/25 18:10 04/06/25 20:09 Temperature 97.2 F L Temperature Source Temporal Pulse Rate 78 89 Respiratory Rate 15 18 Blood Pressure 131/69 H 147/76 H Blood Pressure Mean 89 99 Pulse Ox 96 94 Oxygen Delivery Method Room Air MDM MDM MDM Narrative Medical decision making narrative: Patient is a 54-year-old male who presented to the emergency department with a chief complaint of multiple falls over the last week, dizziness. On the differential diagnose includes but not limited to electrolyte abnormality, pneumonia, pneumothorax, rib fracture, carotid/vertebral artery dissection. Once workup is obtained and reviewed he will be reevaluated. Patient CBC was reviewed which showed no evidence of leukocytosis white blood count was noted to be normal at 4.6, hemoglobin was noted to be 12.4, platelet count was normal at 258. Patient INR normal at 1, PT was noted to be 15. Patient sodium normal 140, potassium low at 3.3, creatinine was notably normal at 0.99. Patient AST and ALT are 18 and 11 respectively. Patient urinalysis reviewed showed no evidence of infection. Patient's CT head and brain without contrast reviewed and showed no acute intracranial abnormalities. Patient CT cervical spine reviewed showed no acute fracture or with thesis. Patient's CTA of his chest was reviewed which showed no acute intrathoracic abnormality no acute fractures noted. Stable diffusely torturous and tactic thoracic aorta with aneurysmal dilation of the aortic arch status post stent graft repair and focal chronic dissection versus intramural ulceration of the lower thoracic aorta at the level of the diaphragmatic hiatus. Patient's CTA neck reviewed and showed no acute cervical arterial vascular injury dissection or saccular aneurysm. Mild atherosclerotic plaque at the carotid bulbs no hemodynamically significant stenosis. Patient's pelvis x-ray reviewed myself by radiology showed no acute fracture or dislocation. Patient is EKG reviewed showed sinus rhythm with a rate of 60 bpm with evidence of GA interval prolongation of 228 indicating first-degree AV block. I discussed the results with the patient and significant other at bedside. I did offer him admission for PT OT evaluation and likely placement given his multiple falls over the last week. Per patient and he is not staying he does not want to go to rehab he wants to go home at this point time. He was advised to return with worsening symptoms or concerns. All question concerns answered he is discharged home in stable condition Lab Data Labs: Laboratory Results - last 24 hr 04/06/25 04/06/25 18:40 19:22 WBC 4.6 RBC 4.05 L Hgb 12.4 L Hct 36.6 L MCV 90.4 MCH 30.6 MCHC 33.9 RDW Std Deviation 43.7 RDW Coeff of Lalita 13.2 Plt Count 258 MPV 9.1 Immature Gran % (Auto) 0.900 Neut % (Auto) 54.3 Lymph % (Auto) 31.1 [place] % (Auto) 10.5 H Eos % (Auto) 2.8 Baso % (Auto) 0.4 Absolute Neuts (auto) 2.5 Absolute Lymphs (auto) 1.42 Nucleated RBC % 0 PT 15.0 H INR 1.2 APTT 26.9 Sodium 140 Potassium 3.3 Chloride 99 Carbon Dioxide 25.3 Anion Gap 16 H BUN 11 Creatinine 0.99 Estim Creat Clear Calc 118.41 Est GFR (MDRD) Non-Af 90 BUN/Creatinine Ratio 10.9 Glucose 95 Calcium 9.2 Total Bilirubin 0.44 Direct Bilirubin 0.24 AST 18 ALT 11 Alkaline Phosphatase 132 H Total Protein 7.4 Albumin 4.5 Globulin 2.9 Urine Color Yellow Urine Clarity Clear Urine pH 7.0 Ur Specific [place] 1.010 Urine Protein 30 H Urine Glucose (UA) Normal Urine Ketones Negative Urine Occult Blood Negative Urine Nitrite Negative Urine Bilirubin Negative Urine Urobilinogen Normal Ur Leukocyte Esterase Negative Urine RBC 0-5 SEEN Urine WBC 0-5 SEEN Ur Squamous Epith Cells 0-5 SEEN Urine Bacteria 1+ Urine Mucus 0 SEEN Radiography Diagnostic Testing: Clinical Impression(s) from Imaging Studies Pelvis X-Ray 04/06/25 18:31 IMPRESSION: No evidence of acute fracture or dislocation. Reading Location: [id number] Brain CT 04/06/25 20:00 IMPRESSION: No acute intracranial abnormality. Reading Location: [facility] Cervical Spine CT 04/06/25 20:00 IMPRESSION: No acute fracture or malalignment. Mild spondylotic changes. Reading Location: [facility] Chest CTA 04/06/25 20:00 IMPRESSION: No acute intrathoracic abnormality. No acute fractures. Mild cardiomegaly. Stable diffusely tortuous and ectatic thoracic aorta with aneurysmal dilatation of the aortic arch status post stent graft repair, and focal chronic dissection versus intramural ulceration of the lower thoracic aorta at the level of the diaphragmatic hiatus. Reading Location: [facility] Neck CTA 04/06/25 20:00 IMPRESSION: No acute cervical arterial vascular injury, dissection, or saccular aneurysm. Mild atherosclerotic plaque at the carotid bulbs. No hemodynamically significant stenosis. Reading Location: [facility] Discharge Plan Triage Chief Complaint: Dizziness ED Provider: Jens Cyr Dx/Rx/DC Orders Clinical Impression: Multiple falls, Marfans syndrome, Essential (primary) hypertension, Diabetes Prescriptions: No Action acetaminophen 500 MG tablet 1,000 mg PO DAILY PRN (Reason: Pain) ibuprofen 200 MG tablet 400 - 600 mg PO DAILY PRN (Reason: Pain) lorazepam 1 mg tablet 1 mg PO DAILY PRN (Reason: anxiety) lidocaine 5 % adhesive patch,medicated 1 patch topical DAILY PRN (Reason: pain) insulin glargine 100 unit/mL (3 mL) insulin pen, sensor 25 unit subcut BID fluoxetine 20 mg capsule 20 mg PO QHS dextroamphetamine-amphetamine 30 mg tablet 1 tab PO BID PRN (Reason: ADHD) aspirin [Adult Aspirin Regimen] 81 mg tablet,delayed release (DR/EC) 81 mg PO DAILY oxycodone 5 mg tablet 5 - 10 mg PO Q8H PRN (Reason: pain) 3 Days Qty: 15 0RF (DME) handicap placcard See Rx Instructions .Route .MEDSUPPLY Qty: 1 0RF Rx Instructions: dx: debility, CHF Lifetime albuterol sulfate 90 mcg/actuation HFA aerosol inhaler 2 puff inhalation Q4H PRN (Reason: shortness of breath or wheezing) Qty: 8.5 3RF levothyroxine 25 mcg tablet 25 mcg PO DAILY Qty: 90 3RF zolpidem 10 mg tablet 10 mg PO QHS PRN (Reason: sleep) Qty: 30 0RF rabeprazole [AcipHex] 20 mg tablet,delayed release (DR/EC) 20 mg PO DAILY Qty: 90 3RF (DME) pen needle, diabetic [Unifine Pentips Plus] 31 gauge x 5/16" needle See Rx Instructions .Route Qty: 100 12RF Rx Instructions: Use as directed 4-5 times daily; insulin lispro [Humalog KwikPen Insulin] 100 unit/mL insulin pen 10 - 15 unit subcut TIDCM Qty: 15 0RF clonidine HCl 0.1 mg tablet 0.1 mg PO BID Qty: 180 3RF quetiapine 200 mg tablet 400 mg PO BID Qty: 120 0RF carvedilol 25 mg tablet 25 mg PO BID Qty: 180 3RF Rx Instructions: must administer with a meal/food amoxicillin 500 mg tablet 500 mg PO .COMPLEX Qty: 21 4RF Rx Instructions: 500 mg orally three times daily X 7 days; nifedipine 60 mg tablet extended release 24hr 60 mg PO DAILY Qty: 90 3RF Primary Care Provider: Rodo Edmonds Referrals: Rodo Edmonds MD [Primary Care Provider, Medical] Activity Restrictions/Additional Instructions: Your blood work did not show any acute findings here today. Your CT scans did not show any acute findings either. Return with worsening symptoms or other concerns otherwise follow-up your doctor in outpatient setting. Print Language: Frisian Disposition Disposition: Home, Self Care
[2025-04-06 19:01] LABS: Hematocrit 36.6 % (40-54); Hemoglobin 12.4 g/dL (13.0-16.5); Immature Granulocytes Count 0.040 X10^3/uL (0.0-0.0); Mean Corp Hgb Conc 33.9 g/dL (32-36); Mean Corpuscular Volume 90.4 fL (80-94); Mean Platelet Vol. 9.1 fl (6.2-12.0); NRBC Flagged by Analyzer 0 % (0-5); Platelet Count 258 K/mm3 (150-450); RBC Distribution Width CV 13.2 % (11.6-14.6); RBC Distribution Width SD 43.7 fl (35.1-43.9); Red Blood Count 4.05 M/mm3 (4.6-6.2); White Blood Count 4.6 K/mm3 (4.4-11.0)
[2025-04-06 19:30] LABS: Mucous, Urine 0 SEEN /hpf (<or=2+)
[2025-04-06 19:41] LABS: Color, Urine Yellow (Yellow); Glucose, Dipstick Normal (Normal); Ketone-Dipstick Negative (Negative); Leukocyte Esterase-Dipstick Negative /ul (Negative); Nitrite-Dipstick Negative (Negative); Occult Blood-Urine Negative /ul (Negative); Protein-Dipstick 30 mg/dl (Negative); Specific Gravity, Urine 1.010 (1.002-1.030); Urine Bilirubin Dipstick Negative (Negative)
[2025-04-06 19:45] LABS: AST(SGOT) 18 U/L (<=37); Alanine Aminotransfer ALT/SGPT 11 U/L (<=46); Albumin, Serum 4.5 g/dL (3.5-5.0); Alkaline Phosphatase 132 U/L (40-129); Anion Gap 16 (5-15); BUN 11 mg/dL (4-19); BUN/Creat Ratio 10.9 RATIO (10-20); Bilirubin, Direct 0.24 mg/dL (0.00-0.30); Calcium,Total 9.2 mg/dL (7.6-11.0); Carbon Dioxide 25.3 mmol/L (21.0-32.0); Chloride 99 mmol/L (98-108); Estimated Creatinine Clearance 118.41 ml/min (50-250); Globulin 2.9 g/dL (2.2-4.2); Glucose 95 mg/dL (70-99); Potassium 3.3 mmol/L (3.3-5.1)
[2025-04-06 19:50] LABS: Prothrombin Time (Protime)PT. 15.0 SECONDS (11.7-14.9)
[2025-04-06 19:51] LABS: Partial Thromboplast Time 26.9 Seconds (24.1-36.2)
--- NOTE | 2025-04-06 20:00 | CT_ITS ---
PROCEDURE: CTA CHEST W/WO CONTRAST 04/06/2025 REASON FOR EXAM: RIB PAIN, MULTIPLE FALL, MARFAN SYNDROME TECHNIQUE: Procedure Code: CTCTACHWW Modality: CT Procedure: CTA CHEST W/WO CONTRAST Multiplanar Sagittal and Coronal images were obtained. 3D post processing was performed. CONTRAST: Isovue 370 VOLUME: 100 mL One or more dose reduction techniques were used (e.g., Automated exposure control, adjustment of the mA and/or kV according to patient size, use of iterative reconstruction technique). RADIATION DOSE SUMMARY: DLP: 3220.75 mGycm COMPARISON: CTA chest 10/13/2022. FINDINGS: THORACIC AORTA: Tortuous and diffusely ectatic thoracic aorta, stable from prior exam. Status post stent graft repair of the aortic arch horizontal segment. Stable focal bulbous aneurysmal dilatation of the proximal aortic arch at the origins of the great branch vessels, measuring up to 4.7 cm diameter. Stable chronic focal dissection versus intramural ulcer at the anterior aspect of the lower thoracic aorta at the level of the diaphragmatic hiatus. Postoperative changes of the aortic root. PULMONARY VESSELS: Mildly ectatic. No pulmonary arterial emboli identified. LUNGS/PLEURA: Clear. No pneumothorax or pleural effusion. Few scattered small subpleural cysts and/or mild emphysematous changes. Patent central airways. MEDIASTINUM: Unremarkable. No suspicious lymph node enlargement. HEART: Mildly enlarged. No pericardial effusion. Scant coronary artery calcifications. UPPER ABDOMEN: No significant abnormality, as visualized. BONES: No acute fracture or dislocation. Mild degenerative changes of the spine, with slight upper thoracic levoscoliotic curvature. Sternotomy wires. CT/CTA Chest W/WO Contrast IMPRESSION: No acute intrathoracic abnormality. No acute fractures. Mild cardiomegaly. Stable diffusely tortuous and ectatic thoracic aorta with a neurysmal dilatation of the aortic arch status post stent graft repair, and focal chronic dissection versus intramural ulcerat ion of the lower thoracic aorta at the level of the diaphragmatic hiatus. Reading Location: [id number]
--- NOTE | 2025-04-06 20:00 | CT_ITS ---
PROCEDURE: CT BRAIN/HEAD WITHOUT CONTRAST 04/06/2025 REASON FOR EXAM: TRAUMA TECHNIQUE: Procedure Code: CTBR Modality: CT Procedure: BRAIN/HEAD WITHOUT CONTRAST Coronal and Sagittal reconstruction series were provided. One or more dose reduction techniques were used (e.g., Automated exposure control, adjustment of the mA and/or kV according to patient size, use of iterative reconstruction technique. RADIATION DOSE SUMMARY: CTDlvol: 44.99 mGy DLP: 931.09 mGycm COMPARISON: 07/08/2024 FINDINGS: No acute intracranial hemorrhage, extra-axial collection, mass effect or evidence of acute infarct. Ventricles and subarachnoid spaces are normal in size. Orbital contents are unremarkable. Intact skull base and calvarium. Well-aerated paranasal sinuses and mastoid air cells. CT/Brain/Head without Contrast IMPRESSION: No acute intracranial abnormality. Reading Location: [id number]
--- NOTE | 2025-04-06 20:00 | CT_ITS ---
PROCEDURE: CTA NECK W/WO CONTRAST 04/06/2025 REASON FOR EXAM: DIZZINESS, MULTIPLE FALLS, MARFAN SYNDROME TECHNIQUE: Procedure Code: CTCTANEWW Modality: CT Procedure: CTA NECK W/WO CONTRAST Multiplanar Sagittal and Coronal images were obtained. 3D post processing was performed. CONTRAST: Isovue 370 VOLUME: 100 mL One or more dose reduction techniques were used (e.g., Automated exposure control, adjustment of the mA and/or kV according to patient size, use of iterative reconstruction technique). RADIATION DOSE SUMMARY: DLP: 3220.75 mGycm COMPARISON: 05/19/2018. FINDINGS: Partially imaged aneurysmal dilatation at the superior aspect of the aortic arch. Conventional aortic arch branching. Bilateral cervical carotid and codominant vertebral arteries are patent, without significant stenosis. Diffuse tortuosity but no saccular aneurysm or dissection. Mild atherosclerotic plaque at the carotid artery bifurcations without any hemodynamically significant stenosis. Partially imaged major intracranial arterial vasculature is patent without any significant stenosis visualized. No saccular aneurysm or vascular malformation is seen. CT/CTA Neck W/WO Contrast IMPRESSION: No acute cervical arterial vascular injury, dissection, or saccular aneurysm. Mild atherosclerotic plaque at the carotid bulbs. No hemodynamically significan t stenosis. Reading Location: [id number]
--- NOTE | 2025-04-06 20:00 | CT_ITS ---
PROCEDURE: CT SPINE CERVICAL WITHOUT CONTRAST 04/06/2025 REASON FOR EXAM: TRAUMA TECHNIQUE: Procedure Code: CTSPC Modality: CT Procedure: SPINE CERVICAL WITHOUT CONTRAS Coronal and Sagittal reconstruction series were provided. One or more dose reduction techniques were used (e.g., Automated exposure control, adjustment of the mA and/or kV according to patient size, use of iterative reconstruction technique. RADIATION DOSE SUMMARY: DLP: 3220.75 mGycm COMPARISON: Neck CT 03/13/2021. FINDINGS: No acute fracture or subluxation. Alignment is anatomic. Mild multilevel spondylotic changes with varying degrees of disc space narrowing, few scattered small Schmorl's nodes and/or subchondral cysts, anterior osteophytosis, uncovertebral spurring and hypertrophic facet arthropathy. No prevertebral soft tissue swelling. Mild atherosclerotic vascular calcifications. CT/Spine Cervical without Contras IMPRESSION: No acute fracture or malalignment. Mild spondylotic changes. Reading Location: [id number]
[2025-04-06 20:09] VITALS: BP 147/76; PULSE 89; RESP 18; O2SAT 94
[2025-04-06 20:11] LABS: Red Blood Cells-Urine 0-5 SEEN /hpf (0-5); Squamous Epithelial Cells - UA 0-5 SEEN /hpf (0-5)
[2025-04-06] MEDS: HYDROmorphone 0.5 MG/0.5 ML SYRINGE IV (20:38)
[2025-04-06 21:54] VITALS: BP 150/75; PULSE 60; RESP 13; TEMP 36.4; O2SAT 92
== END 2025-04-06 21:59 | disposition home or self-care (01) ==
PROVIDERS: Emergency Provider Emergency Medicine; PCP Family Medicine; Visit Provider Emergency Medicine
DX: I11.0 Hypertensive heart disease with heart failure (principal); I50.9 Heart failure, unspecified; F31.9 Bipolar disorder, unspecified; E11.9 Type 2 diabetes mellitus without complications; I25.10 Atherosclerotic heart disease of native coronary artery without angina pectoris; Q87.40 Marfan syndrome, unspecified; Z95.1 Presence of aortocoronary bypass graft
CPT/HCPCS: 70450; 70498; 71275; 72125; 72170; 80048; 80076; 81001; 85025; 85610; 85730; 93005; 96361; 96374; 96375; 99283; Q9967; A4216; J2405